=== PATIENT | male | born 1940 | race Caucasian/White ===

== ENCOUNTER 2017-05-05 02:50 | Inpatient (IN) | payer MEDICARE, MEDICAID ==
[~2017-05-05] VITALS: Ht 172.7 cm; Wt 86.2 kg
[~2017-05-05 02:50] MED LIST: ACET-2799 PO; BISA10SU12 RC; CARB1TAB21 PO; CHOL10002 PO; CLOT15CR36 TOP; Cephalexin Monohydrate PO; DULO30CA2 PO; Docusate Sodium PO; MULT-24 PO; NEO/3.5O EACHEYE; PANT40TA2 PO; PROP10DR4 EACHEYE; QUET25TA PO; TAMS-3 PO; VALP250S17 PO
[2017-05-05 03:42] LABS: ALANINE AMINOTRANSFERASE 12 U/L (16-63); ALKALINE PHOSPHATASE 56 U/L (50-136); ASPARTATE AMINOTRANSFERASE 12 U/L (15-37); BILIRUBIN,TOTAL 0.6 mg/dL (0.2-1.0); CARBON DIOXIDE 26 mmol/L (21-32); CHLORIDE 105 mmol/L (98-107); CREATININE 1.1 mg/dL (0.6-1.3); GLUCOSE 95 mg/dL (74-106); POTASSIUM 4.2 mmol/L (3.5-5.1); TOTAL PROTEIN, SERUM 6.6 g/dL (6.4-8.2); UREA NITROGEN, BLOOD 22 mg/dL (7-18); VALPROIC ACID 18 ug/mL (50-100)
[2017-05-05 03:49] LABS: EOSINOPHILS # (AUTO) 0.1 K/uL (0.0-0.7); EOSINOPHILS % (AUTO) 1.4 % (0.0-7.0); LYMPHOCYTES # (AUTO) 1.9 K/UL (0.8-4.8)
[2017-05-05 03:51] LABS: BASOPHILS # (AUTO) 0.1 K/uL (0.0-8.0); BASOPHILS % (AUTO) 0.7 % (0.0-2.0); HEMATOCRIT 41.3 % (40-50); HEMOGLOBIN 13.6 G/DL (14.0-18.0); LYMPHOCYTES % (AUTO) 21.3 % (20.5-51.5); MEAN CORPUSCULAR HEMOGLOBIN 28.5 UUG (27.0-31.0); MEAN CORPUSCULAR HGB CONC 33 g/dL (32.0-37.0); MEAN CORPUSCULAR VOLUME 86.2 FL (82.0-92.0); MONOCYTES # (AUTO) 0.4 K/UL (0.1-1.30); NEUTROPHILS # (AUTO) 6.4 K/UL (1.8-8.9); NEUTROPHILS % (AUTO) 71.6 % (38.5-71.5); PLATELET COUNT (AUTO) 196 K/UL (150-450); RED BLOOD CELL COUNT(AUTO) 4.78 MIL/UL (4.7-6.1); WHITE BLOOD COUNT (AUTO) 8.9 K/UL (4.0-11.2)
--- NOTE | 2017-05-05 04:54 | NUR ---
[facility], Dr. Zapata will be paged.
--- NOTE | 2017-05-05 04:57 | NUR ---
MICHAEL spoke with Dr. Zapata.
[2017-05-05] MEDS ORDERED: Medication Not On Formulary EA (Acetaminophen 650 MG) PO PRN (05:15)
[2017-05-05] MEDS ORDERED: BISACODYL 10 MG SUPP.RECT RC PRN (05:15)
--- NOTE | 2017-05-05 05:34 | NUR ---
Report called to [facility]IN[facility] Gr[facility]. Patient will bew admitted to [facility] under Dr. Zapata.
--- NOTE | 2017-05-05 06:00 | NUR ---
Transported patient to room 212. Patient in stable condition
--- NOTE | 2017-05-05 06:10 | NUR ---
RECEIVED PATIENT VIA GURNEY FROM ER. PATIENT IS ALERT TO SELF. NON-VERBAL. PATIENT REPOSITIONED IN BED AND MADE COMFORTABLE. HEPLOCK INTACT AND PATENT #22 GAUGE. NO S/S OF PAIN OR DISCOMFORT. NO FACIAL GRIMACE NOTED. NO RESP. DISTRESS NOTED. BED ALARM ON. CALL LIGHT IN REACH. ALL NEEDS ATTENDED. WILL CONTINUE TO MONITOR AND ASSESS. Addendum: 05/05/17 at 0653 by JAIMIE PEREZ LVN PATIENT ADMITTED TO FLOOR WITH ELI CATHETER AND BLADDER IRRIGATION INFUSING. LIGHT RED URINE NOTED AT THIS TIME. NO BLOOD CLOTS PRESENT. WILL CONTINUE TO MONITOR.
[2017-05-05 06:48] VITALS: BP 133/73
[2017-05-05] MEDS: PANTOPRAZOLE SODIUM 40 MG TABLET.DR PO SCH (08:54)
[2017-05-05] MEDS: CHOLECALCIFEROL 1,000 UNIT TABLET PO SCH (09:00)
[2017-05-05] MEDS ORDERED: CLOTRIMAZOLE/BETAMET DIPROP CREAM 15 GM TUBE TOP SCH (09:00)
[2017-05-05] MEDS: CARBIDOPA/LEVODOPA 25-100MG TABLET PO SCH ×3 (09:00→17:00)
[2017-05-05] MEDS: TAMSULOSIN HCL 0.4 MG CAP.SR.24H PO SCH ×2 (09:00→17:00)
[2017-05-05] MEDS ORDERED: DOCUSATE PO SCH (09:00)
[2017-05-05] MEDS: DULOXETINE 30 MG CAPSULE.DR PO SCH (09:00)
[2017-05-05] MEDS: MULTIVITAMINS,THERAPEUTIC TABLET PO SCH (09:00)
[2017-05-05] MEDS: VALPROIC ACID 250 MG/5 ML LIQUID UDC PO SCH (09:00)
[2017-05-05] MEDS ORDERED: ACETAMINOPHEN 325 MG TABLET PO PRN (09:15)
[2017-05-05 11:02] VITALS: BP 125/71
[2017-05-05] MEDS ORDERED: DIATR MEGLU/DIATRIZOATE SODIUM 30 ML SOLUTION ONE (13:20)
[2017-05-05] MEDS ORDERED: BARIUM SULFATE 450 ML ORAL.SUSP ONE (13:36)
[2017-05-05 15:31] VITALS: BP 132/78
[2017-05-05] MEDS ORDERED: IV NORMAL SALINE 250 ML IV ONE (15:47)
[2017-05-05] MEDS ORDERED: IOHEXOL 300MG/ML 100 ML INFUS..BTL ONE (15:47)
[2017-05-05 20:00] VITALS: BP 100/50
--- NOTE | 2017-05-05 20:00 | NUR ---
RECEIVED PATIENT ASLEEP IN BED. AROUSABLE TO NAME/TOUCH. NON-VERBAL. NO S/S OF PAIN OR DISCOMFORT. NO RESP. DISTRESS NOTED. BLADDER IRRIGATION INFUSING, WITH ELI CATHETER NOTED TO DRAINAGE WITH CLEAR, ORANGE, LIGHT PINK URINE NOTED. NO CLOTS PRESENT AT THIS TIME. BILATERAL HEELS OFF-LOADED FOR PRESSURE RELIEF. HEPLOCK INTACT AND PATENT. VS WNL. ALL NEEDS ATTENDED. CALL LIGHT IN REACH. WILL CONTINUE TO MONITOR.
[2017-05-05] MEDS: NEO/POLYMYX B/DEXAME OPHT OINT 3.5 GM TUBE EACHEYE SCH (20:37)
[2017-05-05] MEDS: DOCUSATE SODIUM 100 MG CAPSULE PO SCH (20:37)
[2017-05-05] MEDS: QUETIAPINE FUMARATE 25 MG TABLET PO SCH (20:37)
[2017-05-05 22:21] LABS: *BILIRUBIN,URIN NEGATIVE (NEGATIVE); *BLOOD, URINE 3+ (NEGATIVE); *CLARITY,URINE CLOUDY (CLEAR); *COLOR,URINE PINK (YELLOW); *KETONES,URINE NEGATIVE (NEGATIVE); *UROBILINOGEN,URINE 0.2 E.U./dl (NORMAL); LEUKOCYTE ESTERASE ,URINE 3+ (NEGATIVE); NITRITE, URINE NEGATIVE (NEGATIVE); UGLUCOSE NEGATIVE (NEGATIVE)
--- NOTE | 2017-05-05 22:30 | NUR ---
PATIENT ASLEEP. REPOSITIONED TO SIDE FOR PRESSURE RELIEF. BILATERAL HEELS OFF-LOADED. URINE SENT TO LAB ORDERED FOR UA AND CULTURE. ALLL NEEDS ATTENDED.
[2017-05-05 22:34] LABS: *PROTEIN,URINE 3+ (NEGATIVE)
[2017-05-05 22:35] LABS: RBC,URINE TNTC /HPF (0-3); SQUAMOUS EPITHELIAL CELL,UR FEW /HPF (NONE SEEN); WBC,URINE 50-80 /HPF (0-3)
[2017-05-06 05:31] VITALS: BP 116/66
[2017-05-06] MEDS: PANTOPRAZOLE SODIUM 40 MG TABLET.DR PO SCH (06:24)
[2017-05-06] MEDS: TAMSULOSIN HCL 0.4 MG CAP.SR.24H PO SCH ×2 (08:49→17:22)
[2017-05-06] MEDS: DULOXETINE 30 MG CAPSULE.DR PO SCH (08:49)
[2017-05-06] MEDS: VALPROIC ACID 250 MG/5 ML LIQUID UDC PO SCH (08:49)
[2017-05-06] MEDS: DOCUSATE SODIUM 100 MG CAPSULE PO SCH ×2 (08:49→21:06)
[2017-05-06] MEDS: CARBIDOPA/LEVODOPA 25-100MG TABLET PO SCH ×3 (08:50→17:22)
[2017-05-06] MEDS: MULTIVITAMINS,THERAPEUTIC TABLET PO SCH (08:50)
[2017-05-06] MEDS: CHOLECALCIFEROL 1,000 UNIT TABLET PO SCH (08:50)
[2017-05-06 11:06] VITALS: BP 120/68
[2017-05-06] MEDS ORDERED: CEFTRIAXONE 1 G in IV DEXTROSE 5% 50 ML IV SCH (11:15)
[2017-05-06] MEDS ORDERED: BISACODYL 10 MG SUPP.RECT RC PRN (11:15)
[2017-05-06] MEDS ORDERED: BISACODYL 10 MG SUPP.RECT RC ONE (11:15)
[2017-05-06 12:10] LABS: CARBON DIOXIDE 26 mmol/L (21-32); CHLORIDE 102 mmol/L (98-107); CREATININE 1.5 mg/dL (0.6-1.3); GLUCOSE 164 mg/dL (74-106); POTASSIUM 4.1 mmol/L (3.5-5.1); UREA NITROGEN, BLOOD 24 mg/dL (7-18)
[2017-05-06 12:11] LABS: BASOPHILS % (AUTO) 0.2 % (0.0-2.0); EOSINOPHILS # (AUTO) 0.1 K/uL (0.0-0.7); EOSINOPHILS % (AUTO) 0.6 % (0.0-7.0); HEMATOCRIT 42.9 % (40-50); HEMOGLOBIN 14.4 G/DL (14.0-18.0); LYMPHOCYTES % (AUTO) 7.6 % (20.5-51.5); MEAN CORPUSCULAR HGB CONC 34 g/dL (32.0-37.0); MEAN CORPUSCULAR VOLUME 86.3 FL (82.0-92.0); MONOCYTES # (AUTO) 0.8 K/UL (0.1-1.30); MONOCYTES % (AUTO) 6.5 % (0.0-11.0); NEUTROPHILS # (AUTO) 11.1 K/UL (1.8-8.9); NEUTROPHILS % (AUTO) 85.1 % (38.5-71.5); PLATELET COUNT (AUTO) 208 K/UL (150-450); RED BLOOD CELL COUNT(AUTO) 4.97 MIL/UL (4.7-6.1)
[2017-05-06 12:16] LABS: ALANINE AMINOTRANSFERASE 6 U/L (16-63); ALKALINE PHOSPHATASE 53 U/L (50-136); ASPARTATE AMINOTRANSFERASE 9 U/L (15-37); BILIRUBIN,TOTAL 0.8 mg/dL (0.2-1.0); MAGNESIUM 1.8 mg/dL (1.8-2.4); TOTAL PROTEIN, SERUM 6.5 g/dL (6.4-8.2)
[2017-05-06 16:01] VITALS: BP 122/76
[2017-05-06 20:00] VITALS: BP 134/79
[2017-05-06] MEDS: QUETIAPINE FUMARATE 25 MG TABLET PO SCH (21:06)
[2017-05-06] MEDS: NEO/POLYMYX B/DEXAME OPHT OINT 3.5 GM TUBE EACHEYE SCH (21:07)
[2017-05-07 04:27] VITALS: BP 107/60
--- NOTE | 2017-05-07 05:43 | NUR ---
PT SLEPT MOST SHIFT, AROUSABLE TO NAME AND TOUCH. IN NO ACUTE SIGNS OF DISTRESS, ELI INTACT DRAINING WITH LIGHT ORANGE URINE, NO BLOOD CLOTS NOTED. SAFETY MAINTAINED. CALL LIGHT WITHIN REACH.
[2017-05-07] MEDS ORDERED: MEROPENEM 500 MG VIAL IV ONE (05:48)
[2017-05-07] MEDS ORDERED: MEROPENEM 0.5 G in IV NORMAL SALINE 50 ML IV SCH (06:00)
[2017-05-07 07:38] LABS: MAGNESIUM 1.8 mg/dL (1.8-2.4); PHOSPHOROUS 3.7 mg/dL (2.5-4.9)
[2017-05-07 07:55] LABS: EOSINOPHILS # (AUTO) 0.1 K/uL (0.0-0.7); EOSINOPHILS % (AUTO) 0.4 % (0.0-7.0); HEMATOCRIT 41.7 % (40-50); HEMOGLOBIN 13.9 G/DL (14.0-18.0); LYMPHOCYTES # (AUTO) 1.3 K/UL (0.8-4.8); LYMPHOCYTES % (AUTO) 8.7 % (20.5-51.5); MEAN CORPUSCULAR HEMOGLOBIN 28.6 UUG (27.0-31.0); MEAN CORPUSCULAR HGB CONC 33 g/dL (32.0-37.0); MONOCYTES % (AUTO) 6.9 % (0.0-11.0); NEUTROPHILS # (AUTO) 12.7 K/UL (1.8-8.9); PLATELET COUNT (AUTO) 193 K/UL (150-450); RED BLOOD CELL COUNT(AUTO) 4.85 MIL/UL (4.7-6.1); WHITE BLOOD COUNT (AUTO) 15.1 K/UL (4.0-11.2)
--- NOTE | 2017-05-07 08:00 | NUR ---
RECEIVED IN BED WITH CONFUSSION AND DISORIENTATION VERBALLY NON RESPONSIVE AT THIS TIME ALL NEEDS ANTICIPATED AND SATISFIED.REMAIN ON [address] CONTINUOS IRRIGATION WITH URINE CLEAR AT THIS TIME. MADE COMFORTABLE AND WILL CONTINUE TO OBSERVE.
[2017-05-07] MEDS: TAMSULOSIN HCL 0.4 MG CAP.SR.24H PO SCH ×2 (08:34→16:59)
[2017-05-07] MEDS: DOCUSATE SODIUM 100 MG CAPSULE PO SCH ×2 (08:34→20:28)
[2017-05-07] MEDS: VALPROIC ACID 250 MG/5 ML LIQUID UDC PO SCH (08:34)
[2017-05-07] MEDS: DULOXETINE 30 MG CAPSULE.DR PO SCH (08:34)
[2017-05-07] MEDS: MULTIVITAMINS,THERAPEUTIC TABLET PO SCH (08:34)
[2017-05-07] MEDS: CARBIDOPA/LEVODOPA 25-100MG TABLET PO SCH ×3 (08:34→16:59)
[2017-05-07] MEDS: PANTOPRAZOLE SODIUM 40 MG TABLET.DR PO SCH (08:35)
[2017-05-07] MEDS: CHOLECALCIFEROL 1,000 UNIT TABLET PO SCH (08:35)
[2017-05-07 11:09] VITALS: BP 136/68
--- NOTE | 2017-05-07 13:00 | NUR ---
REMAIN ON BLADDER IRRIGATION ORDERED NORMAL SALINE SLOWED DOWN URINE OUTPUT IS SHIRLEY COLOR AT THIS TIME.MADE COMFORTABLE AND WILL CONTINUE TO OBSERVE.
[2017-05-07 13:30] LABS: BAND % (MANUAL) 8 % (0-10); LYMPHOCYTES % (MANUAL) 11 % (20-40); MONOCYTES % (MANUAL) 6 % (2-10); NEUTROPHILS % (MANUAL) 75 % (42-75)
[2017-05-07 15:43] VITALS: BP 128/64
--- NOTE | 2017-05-07 18:00 | NUR ---
REMAIN CONFUSED AND DISORIENTED ALL NEEDS ANTICIPATED AND SATISFIED TURNED AND REPOSITIONED Q2H NOT IN DISTRESS AT THIS TIME.
--- NOTE | 2017-05-07 20:00 | NUR ---
RECEIVED PATIENT ASLEEP IN BED. EASILY AROUSABLE TO NAME AND TOUCH. PATIENT IS CONFUSED BUT FOLLOWS DIRECTIONS WELL. BP LOW 98/35. TEMP. 100.2, ALL OTHER VSS. H/L INTACT AND PATENT. 3-WAY ELI NOTED WITH BLADDER IRRIGATION. ELI IS DRAINING CLEAR, YELLOW/ORANGE URINE, NO BLOOD CLOTS NOTED. BILATERAL HEELS ARE RED/PINK. OFF-LOADED BILATERAL HEELS FOR PRESSURE RELIEF. PATIENT REPOSITIONED TO SIDE FOR COMFORT AND PRESSURE RELIEF. BED ALARM ON. CALL LIGHT IN REACH. ALL NEEDS ATTENDED. WILL CONTINUE TO MONITOR.
[2017-05-07 20:23] VITALS: BP 96/38
[2017-05-07] MEDS: QUETIAPINE FUMARATE 25 MG TABLET PO SCH (20:28)
[2017-05-07] MEDS: NEO/POLYMYX B/DEXAME OPHT OINT 3.5 GM TUBE EACHEYE SCH (20:29)
--- NOTE | 2017-05-07 20:30 | NUR ---
COOLING MEASURES APPLIED. WILL CONTINUE TO MONITOR.
[2017-05-07] MEDS: MEROPENEM 500 MG in IV NORMAL SALINE 50 ML IV SCH (20:44)
--- NOTE | 2017-05-07 21:00 | NUR ---
PATIENT GIVEN TYLENOL 650MG PO PRN FOR ELEVATED TEMP. WILL CONTINUE TO MONITOR. NO S/S OF PAIN OR DISCOMFORT. NO FACIAL GRIMACE NOTED. NO RESP. DISTRESS NOTED. BED ALARM ON. CALL LIGHT IN REACH. ALL NEEDS ATTENDED. WILL CONTINUE TO MONITOR.
--- NOTE | 2017-05-08 00:30 | NUR ---
TEMPERATURE SLOWLY TRENDING DOWN. WILL CONTINUE TO MONITOR.
[2017-05-08 00:57] VITALS: BP 100/60
[2017-05-08 04:00] VITALS: BP 99/65
--- NOTE | 2017-05-08 06:00 | NUR ---
PATIENT ASLEEP IN BED. SLEPT WELL THROUGHOUT THE NIGHT. VSS. BILATERAL HEELS OFF-LOADED FOR PRESSURE RELIEF. REPOSITIONED TO SIDE FOR COMFORT. BED ALARM ON, CALL LIGHT IN REACH. ALL NEEDS ATTENDED. WILL CONTINUE TO MONITOR.
[2017-05-08] MEDS: PANTOPRAZOLE SODIUM 40 MG TABLET.DR PO SCH (06:08)
[2017-05-08 06:52] LABS: BASOPHILS % (AUTO) 0.1 % (0.0-2.0); EOSINOPHILS # (AUTO) 0.2 K/uL (0.0-0.7); EOSINOPHILS % (AUTO) 2.6 % (0.0-7.0); HEMOGLOBIN 13.4 G/DL (14.0-18.0); LYMPHOCYTES % (AUTO) 11.6 % (20.5-51.5); MEAN CORPUSCULAR HEMOGLOBIN 28.6 UUG (27.0-31.0); MEAN CORPUSCULAR HGB CONC 33 g/dL (32.0-37.0); MEAN CORPUSCULAR VOLUME 87.7 FL (82.0-92.0); MONOCYTES # (AUTO) 0.4 K/UL (0.1-1.30); MONOCYTES % (AUTO) 4.8 % (0.0-11.0); NEUTROPHILS # (AUTO) 7.4 K/UL (1.8-8.9); NEUTROPHILS % (AUTO) 80.9 % (38.5-71.5); PLATELET COUNT (AUTO) 189 K/UL (150-450); RED BLOOD CELL COUNT(AUTO) 4.67 MIL/UL (4.7-6.1)
[2017-05-08 07:09] LABS: CARBON DIOXIDE 25 mmol/L (21-32); CHLORIDE 104 mmol/L (98-107); CREATININE 1.4 mg/dL (0.6-1.3); GLUCOSE 91 mg/dL (74-106); MAGNESIUM 1.9 mg/dL (1.8-2.4); POTASSIUM 3.9 mmol/L (3.5-5.1); UREA NITROGEN, BLOOD 36 mg/dL (7-18)
--- NOTE | 2017-05-08 07:51 | NUR ---
RECEIVED IN BED CONFUSED AND DISORIENTED APHASIC WITH [facility] CONTACT ALL NEEDS ANTICIPATED AND SATISFIED.MAX ASSIST FOR ALL ADL REMAIN ON CONTINOUS BLADDER IRRIGATION ORDERED WITH NO HEMATURIA AT THIS TIME REMAIN ON ATB ORDERED WITH NO ADVERSE OR ALLERGIC REACTIONS AT THIS TIME MADE COMFORTABLE AND WILL CONTINUE TO OBSERVE PATIENT.
[2017-05-08] MEDS: MULTIVITAMINS,THERAPEUTIC TABLET PO SCH (08:08)
[2017-05-08] MEDS: DOCUSATE SODIUM 100 MG CAPSULE PO SCH ×2 (08:08→20:37)
[2017-05-08] MEDS: TAMSULOSIN HCL 0.4 MG CAP.SR.24H PO SCH ×2 (08:08→16:54)
[2017-05-08] MEDS: CHOLECALCIFEROL 1,000 UNIT TABLET PO SCH (08:08)
[2017-05-08] MEDS: CARBIDOPA/LEVODOPA 25-100MG TABLET PO SCH ×3 (08:08→16:54)
[2017-05-08] MEDS: VALPROIC ACID 250 MG/5 ML LIQUID UDC PO SCH (08:08)
[2017-05-08] MEDS: DULOXETINE 30 MG CAPSULE.DR PO SCH (08:08)
[2017-05-08] MEDS: MEROPENEM 500 MG in IV NORMAL SALINE 50 ML IV SCH (08:47)
[2017-05-08 11:07] VITALS: BP 100/63
--- NOTE | 2017-05-08 14:13 | NUR ---
PATIENT SEEN AND EXAMINED BY THE SLT WITH ORDER TO CONTINUE PURRED BUT WITH NECTAR THICK LIQUIDS AND NOTED.
[2017-05-08 15:04] VITALS: BP 100/64
--- NOTE | 2017-05-08 17:26 | NUR ---
SEEN AND EXAMINED BY BETSY WITH NEW ORDERS AND NOTED.
[2017-05-08 19:00] VITALS: BP 100/65
--- NOTE | 2017-05-08 20:00 | NUR ---
RECEIVED PATIENT ASLEEP IN BED. EASILY AROUSABLE. NON-VERBAL. NO S/S OF PAIN OR DISCOMFORT. NO FACIAL GRIMACE NOTED. NO RESP. DISTRESS NOTED. H/L INTACT AND PATENT, NOTED TO LEFT FA #20 GAUGE. F/C INTACT AND DRAINING CLEAR, YELLOW URINE. BILATERAL HEELS OFF-LOADED FOR PRESSURE RELIEF. BED ALARM ON. CALL LIGHT IN REACH. ALL NEEDS ATTENDED. WILL CONTINUE TO MONITOR.
[2017-05-08] MEDS: NEO/POLYMYX B/DEXAME OPHT OINT 3.5 GM TUBE EACHEYE SCH (20:37)
[2017-05-08] MEDS: QUETIAPINE FUMARATE 25 MG TABLET PO SCH (20:37)
[2017-05-08] MEDS: CEFAZOLIN 1 G in PREMIXED 1 EACH IV SCH (21:27)
[2017-05-09 04:00] VITALS: BP 72/35
--- NOTE | 2017-05-09 04:00 | NUR ---
PATIENT ASLEEP IN BED. PATIENT REPORTED LOW BP FOR AM VITALS. FIRST BP 63/32, SECOND TIME RECHECKED 67/354 AND THIRD TIME RECHECKED 72/35. ALL OTHER VSS. PATIENT EASILY AROUSABLE AND RESPONSIVE. CALLED OUT TO MD NEWS CAMERA OPERATOR FOR FURTHER ORDERS.
--- NOTE | 2017-05-09 04:10 | NUR ---
NOTIFIED DR. RUFFIN ALLEY CLEANER FOR ORDERS REGARDING LOW BP. RECEIVED ORDER FOR PATIENT TO HAVE 1L NS BOLUS AND THEN TO BE CONTINUED WITH NS @100CC/HR. INSIDE SALES ADVISOR NOTIFIED. WILL CONTINUE TO MONITOR AND ASSESS VITALS.
[2017-05-09] MEDS ORDERED: IV NS 1000 ML 1,000 ML IV PRN (04:30)
[2017-05-09] MEDS ORDERED: IV NORMAL SALINE 1000 ML BAG IV ONE (04:30)
[2017-05-09] MEDS: CEFAZOLIN 1 G in PREMIXED 1 EACH IV SCH ×2 (05:54→13:54)
[2017-05-09] MEDS: PANTOPRAZOLE SODIUM 40 MG TABLET.DR PO SCH (06:11)
[2017-05-09 06:43] VITALS: BP 117/72
--- NOTE | 2017-05-09 06:44 | NUR ---
RECHECKED PATIENTS BLOOD PRESSURE 117/72. ALL OTHER VSS. CALL LIGHT IN REACH. ALL NEEDS ATTENDED. WILL CONTINUE TO MONITOR.
[2017-05-09 07:10] VITALS: BP 110/71
[2017-05-09 07:29] LABS: BASOPHILS % (AUTO) 0.5 % (0.0-2.0); EOSINOPHILS # (AUTO) 0.3 K/uL (0.0-0.7); HEMATOCRIT 37.9 % (40-50); HEMOGLOBIN 12.6 G/DL (14.0-18.0); LYMPHOCYTES % (AUTO) 20.4 % (20.5-51.5); MEAN CORPUSCULAR HEMOGLOBIN 29.2 UUG (27.0-31.0); MEAN CORPUSCULAR HGB CONC 33 g/dL (32.0-37.0); MEAN CORPUSCULAR VOLUME 87.4 FL (82.0-92.0); MONOCYTES # (AUTO) 0.5 K/UL (0.1-1.30); MONOCYTES % (AUTO) 10.4 % (0.0-11.0); NEUTROPHILS # (AUTO) 3.3 K/UL (1.8-8.9); NEUTROPHILS % (AUTO) 63.7 % (38.5-71.5); PLATELET COUNT (AUTO) 189 K/UL (150-450); RED BLOOD CELL COUNT(AUTO) 4.34 MIL/UL (4.7-6.1)
[2017-05-09 07:41] LABS: CARBON DIOXIDE 27 mmol/L (21-32); CHLORIDE 106 mmol/L (98-107); CREATININE 1.1 mg/dL (0.6-1.3); GLUCOSE 96 mg/dL (74-106); MAGNESIUM 1.9 mg/dL (1.8-2.4); PHOSPHOROUS 3.1 mg/dL (2.5-4.9); POTASSIUM 3.9 mmol/L (3.5-5.1); UREA NITROGEN, BLOOD 30 mg/dL (7-18)
[2017-05-09 07:54] LABS: WHITE BLOOD COUNT (AUTO) 5.1 K/UL (4.0-11.2)
[2017-05-09] MEDS: CARBIDOPA/LEVODOPA 25-100MG TABLET PO SCH ×2 (08:35→12:08)
[2017-05-09] MEDS: MULTIVITAMINS,THERAPEUTIC TABLET PO SCH (08:35)
[2017-05-09] MEDS: VALPROIC ACID 250 MG/5 ML LIQUID UDC PO SCH (08:35)
[2017-05-09] MEDS: DULOXETINE 30 MG CAPSULE.DR PO SCH (08:36)
[2017-05-09] MEDS: TAMSULOSIN HCL 0.4 MG CAP.SR.24H PO SCH (08:36)
[2017-05-09] MEDS: DOCUSATE SODIUM 100 MG CAPSULE PO SCH (08:36)
[2017-05-09] MEDS: CHOLECALCIFEROL 1,000 UNIT TABLET PO SCH (08:36)
[2017-05-09 11:03] VITALS: BP 106/64
[2017-05-09] MEDS ORDERED: ACID1TAB4 PO (12:38)
[2017-05-09] MEDS ORDERED: CRAN450T9 PO (12:38)
[2017-05-09] MEDS ORDERED: CEFA1VIA19 IV (12:38)
[2017-05-09 15:09] VITALS: BP 106/55
--- NOTE | 2017-05-09 17:00 | NUR ---
discharged to [facility] via ambulance stable
== END 2017-05-09 17:00 | DRG 871 ==
LOC: ER 02:53 → MED 05:20
PROVIDERS: ADMIT Internal Medicine; ATTEND Internal Medicine
DX: A41.9 Sepsis, unspecified organism (principal); G93.40 Encephalopathy, unspecified; N39.0 Urinary tract infection, site not specified; D68.59 Other primary thrombophilia; N13.30 Unspecified hydronephrosis; G23.1 Progressive supranuclear ophthalmoplegia [Steele-Richardson-Olszewski]; R31.0 Gross hematuria; F02.80 Dementia in other diseases classified elsewhere, unspecified severity, without behavioral disturbance, psychotic disturbance, mood disturbance, and anxiety; G20 Parkinson's disease; E11.9 Type 2 diabetes mellitus without complications; E78.5 Hyperlipidemia, unspecified; Z91.81 History of falling; Z87.440 Personal history of urinary (tract) infections; Z87.11 Personal history of peptic ulcer disease; N40.0 Benign prostatic hyperplasia without lower urinary tract symptoms; Z79.899 Other long term (current) drug therapy; Z74.09 Other reduced mobility; K26.9 Duodenal ulcer, unspecified as acute or chronic, without hemorrhage or perforation; I10 Essential (primary) hypertension; K21.0 Gastro-esophageal reflux disease with esophagitis; K56.41 Fecal impaction; K52.89 Other specified noninfective gastroenteritis and colitis; I70.0 Atherosclerosis of aorta; M41.9 Scoliosis, unspecified
CPT/HCPCS: 36415; 51702; 70030-TC; 71010; 80164; 83735; 84100; 84153; 85025; 85610; 86850; 86900; 86901; 87077; 87086; 92526; 92610; A4217; A4663; J0690; J0696; J2185; J3490; J7030; J7050; J7060; Q9951; Q9963; Q9967

== ENCOUNTER 2017-05-14 22:45 | Inpatient (IN) | payer MEDICARE, MEDICAID ==
[~2017-05-14] VITALS: Ht 172.7 cm; Wt 73.0 kg
[~2017-05-14 22:45] MED LIST changes: +ACID1TAB4 PO; +CEFA1VIA19 IV; -CLOT15CR36 TOP; +CRAN450T9 PO; -Cephalexin Monohydrate PO
[2017-05-14] MEDS ORDERED: CEPH500C2 PO (22:58)
[2017-05-14] MEDS ORDERED: ACID1TAB4 PO (22:58)
[2017-05-14] MEDS ORDERED: DOCU100C36 PO (22:58)
[2017-05-14] MEDS ORDERED: IV NORMAL SALINE 500 ML BAG IV ONE (23:00)
[2017-05-14] MEDS ORDERED: ACETAMINOPHEN 650 MG SUPP.RECT RC ONE ×2 (23:15→23:19)
[2017-05-14 23:21] LABS: BASOPHILS # (AUTO) 0.2 K/uL (0.0-8.0); BASOPHILS % (AUTO) 1.1 % (0.0-2.0); HEMATOCRIT 43.4 % (40-50); HEMOGLOBIN 14.7 G/DL (14.0-18.0); LYMPHOCYTES # (AUTO) 1.3 K/UL (0.8-4.8); LYMPHOCYTES % (AUTO) 5.8 % (20.5-51.5); MEAN CORPUSCULAR HEMOGLOBIN 28.8 UUG (27.0-31.0); MEAN CORPUSCULAR HGB CONC 34 g/dL (32.0-37.0); MEAN CORPUSCULAR VOLUME 85.1 FL (82.0-92.0); MONOCYTES # (AUTO) 0.4 K/UL (0.1-1.30); MONOCYTES % (AUTO) 1.8 % (0.0-11.0); NEUTROPHILS # (AUTO) 20.2 K/UL (1.8-8.9); NEUTROPHILS % (AUTO) 91.3 % (38.5-71.5); PLATELET COUNT (AUTO) 356 K/UL (150-450); RED BLOOD CELL COUNT(AUTO) 5.09 MIL/UL (4.7-6.1); WHITE BLOOD COUNT (AUTO) 22.1 K/UL (4.0-11.2)
[2017-05-14 23:29] LABS: ALANINE AMINOTRANSFERASE 24 U/L (16-63); ALKALINE PHOSPHATASE 60 U/L (50-136); ASPARTATE AMINOTRANSFERASE 22 U/L (15-37); BILIRUBIN,DIRECT 0.2 mg/dL (0.0-0.2); BILIRUBIN,TOTAL 0.7 mg/dL (0.2-1.0); CARBON DIOXIDE 26 mmol/L (21-32); CHLORIDE 102 mmol/L (98-107); CREATININE 1.5 mg/dL (0.6-1.3); GLUCOSE 117 mg/dL (74-106); POTASSIUM 4.5 mmol/L (3.5-5.1); TOTAL PROTEIN, SERUM 7.3 g/dL (6.4-8.2); UREA NITROGEN, BLOOD 21 mg/dL (7-18)
--- NOTE | 2017-05-14 23:30 | NUR ---
CALLED CODE SEPSIS ORDERED
[2017-05-14 23:34] LABS: *BILIRUBIN,URIN NEGATIVE (NEGATIVE); *BLOOD, URINE Trace-intact (NEGATIVE); *CLARITY,URINE CLOUDY (CLEAR); *COLOR,URINE YELLOW (YELLOW); *KETONES,URINE 1+ (NEGATIVE); *PROTEIN,URINE 1+ (NEGATIVE); *UROBILINOGEN,URINE 0.2 E.U./dl (NORMAL); LEUKOCYTE ESTERASE ,URINE 2+ (NEGATIVE); NITRITE, URINE POSITIVE (NEGATIVE); UGLUCOSE NEGATIVE (NEGATIVE)
[2017-05-14 23:38] LABS: BACTERIA,URINE MANY /HPF (NONE SEEN); SQUAMOUS EPITHELIAL CELL,UR FEW /HPF (NONE SEEN); WBC,URINE 50-80 /HPF (0-3)
[2017-05-14] MEDS ORDERED: PIPERACILLIN SODIUM/TAZOBACTAM 3.375 G in IV DEXTROSE 5% 50 ML IV ONE (23:45)
[2017-05-14] MEDS ORDERED: LEVOFLOXACIN 750MG/D5W 150 ML IV ONE (23:45)
[2017-05-15] MEDS ORDERED: PIPERACILLIN/TAZOBACTAM/D5W 50 ML IV ONE (00:12)
[2017-05-15] MEDS ORDERED: LEVOFLOXACIN 750MG/D5W 150 ML IV ONE (00:12)
--- NOTE | 2017-05-15 00:47 | NUR ---
PER MICHAEL, CONTACTED [facility], SECURITY OFFICERS AND GUARDS TO HAVE DR. Pretty HERNANDEZ PAGED....
--- NOTE | 2017-05-15 01:06 | NUR ---
Pt. admitted to TELEMETRY , under care of Dr. Félix Rae, Belongs List completed, pt awake, with at bedside, no resp distress noted or reported upon transfer assessment...
--- NOTE | 2017-05-15 01:25 | NUR ---
PT RECEIVED FROM ER VIA GURNEY. PT IS AWAKE, NON-VERBAL. AT BEDSIDE. V/S STABLE. NO ACUTE DISTRESS NOTED AT THIS TIME. NO SIGNS OF PAIN NOTED. 73 SINUS RHYTHM ON THE TELE MONITOR. ANTIBIOTIC INFUSING AT THIS TIME. PT MADE COMFORTABLE. SAFETY MEASURES IMPLEMENTED. CALL LIGHT WITHIN REACH.
[2017-05-15 02:00] VITALS: BP 94/64
[2017-05-15 04:00] VITALS: BP 109/64
--- NOTE | 2017-05-15 05:35 | NUR ---
END OF SHIFT NOTES. PT SLEPT WELL THROUGH SHIFT. V/S STABLE. NO ACUTE DISTRESS NOTED. NO S/S OF PAIN NOTED. FOUND LAC IV INFILTRATED FROM ED TRANSFER. D/C LAC IV. STARTED NEW IV ON RIGHT HAND, HEP-LOCK. NEEDS ATTENDED. SAFETY MAINTAINED. CALL LIGHT WITHIN REACH.
[2017-05-15] MEDS ORDERED: ACETAMINOPHEN 325 MG TABLET PO PRN (08:15)
[2017-05-15] MEDS ORDERED: Z GUARD REMEDY PASTE 57 GM TUBE TOP PRN (08:15)
[2017-05-15] MEDS ORDERED: BISACODYL 10 MG SUPP.RECT RC PRN (08:15)
[2017-05-15] MEDS ORDERED: ONDANSETRON 4 MG/2 ML VIAL IV PRN (08:15)
--- NOTE | 2017-05-15 08:30 | NUR ---
RECEIVED PATIENT IN BED WITH CONFUSSION AND DISORIENTATION PATIENT IS NON VERBAL WITH ALL NEEDS ANTICIPATED AND SATISFIED.TURNED AND REPOSITIONED Q2H SPOON FED BREAKFAST PATIENT WILL REQUIRE DOWN GRADING HIS DIET MD AWARE.
[2017-05-15] MEDS ORDERED: CEFTRIAXONE 1 G in IV DEXTROSE 5% 50 ML IV SCH (09:00)
[2017-05-15] MEDS: MULTIVITAMINS,THERAPEUTIC TABLET PO SCH (09:13)
[2017-05-15] MEDS: IV NS 1000 ML 1,000 ML IV PRN (09:13)
[2017-05-15] MEDS: TAMSULOSIN HCL 0.4 MG CAP.SR.24H PO SCH ×2 (09:14→16:17)
[2017-05-15] MEDS: DOCUSATE SODIUM 100 MG CAPSULE PO SCH ×2 (09:14→20:42)
[2017-05-15] MEDS: DULOXETINE 30 MG CAPSULE.DR PO SCH (09:14)
[2017-05-15] MEDS: ACIDOPHILUS/BULGARICUS CHEW TAB PO SCH (09:14)
[2017-05-15] MEDS: CARBIDOPA/LEVODOPA 25-100MG TABLET PO SCH ×3 (09:14→16:17)
[2017-05-15] MEDS: CHOLECALCIFEROL 1,000 UNIT TABLET PO SCH (09:14)
[2017-05-15 11:22] VITALS: BP 112/61
--- NOTE | 2017-05-15 13:00 | NUR ---
PATIENT SEEN AND EXAMINED BY SPEECH AND LANGUAGE THERAPIST AND STATED THAT IT WAS OKAY TO CONTINUE WITH PUREED DIET WITH NECTAR THICK LIQUIDS AND STATED THAT PATIENT SHOULD BE SEATED UPRIGHT IN BED FOR A WHILE AFTER EACH MEAL.
[2017-05-15 15:08] VITALS: BP 113/63
--- NOTE | 2017-05-15 16:52 | NUR ---
REMAIN ON ANTIBIOTICS ORDERED WITH NO ADVERSE OR ALLERGIC REACTIONS AT THIS TIME.IVF IN PROGRESS ORDERED.
--- NOTE | 2017-05-15 18:18 | NUR ---
HIS SPOUSE IS HERE AND ASSISTED WITH FEEDING THE PATIENT SHE WAS EDUCATED ON NEW DIET ORDER AND THE THICKEN ALL HIS LIQUIDS TO NECTAR THICK CONSISTENCY AND SHE EXPRESSED UNDERSTANDING.
--- NOTE | 2017-05-15 19:20 | NUR ---
PATIENT IN BED CONFUSED DUE TO HEALTH CONDITION, NO S/S OF SOB, NO S/S OF CHEST PAIN, TURN AND REPOSITION, ELI CATH PATENT DRAINING WITH YELLOW COLOR URINE IN MODERATE AMOUNT, NO S/S OF DISTRESS.
--- NOTE | 2017-05-15 19:33 | NUR ---
CLINICAL PHARMACY NOTE:VANCOMYCIN DOSING Request for vancomycin dosing on 76 y/o male 5'8" 161lbs for suspected infection Temp 99.1 (05/14/17)-BUN 21 Scr 1.5 WBC 22.1 also on Zosyn Start vancomycin 1250mg ivpb q24h estimate trough 16. Will order trough level prior to 4th dose. Will continue to monitor
[2017-05-15 20:00] VITALS: BP 93/52
[2017-05-15] MEDS: QUETIAPINE FUMARATE 25 MG TABLET PO SCH (20:43)
[2017-05-15] MEDS: Z GUARD REMEDY PASTE 57 GM TUBE TOP SCH (20:47)
[2017-05-15] MEDS: PIPERACILLIN/TAZOBACTAM/D5W 3.375 G in PREMIXED 1 EACH IV SCH (21:14)
[2017-05-15] MEDS ORDERED: VANCOMYCIN IV 1,250 MG in IV DEXTROSE 5% 500 ML IV SCH (23:00)
[2017-05-16] VITALS: BP 106/63
[2017-05-16] MEDS: IV NS 1000 ML 1,000 ML IV PRN (00:27)
[2017-05-16 04:00] VITALS: BP 96/58
[2017-05-16] MEDS: PIPERACILLIN/TAZOBACTAM/D5W 3.375 G in PREMIXED 1 EACH IV SCH ×3 (05:25→23:52)
--- NOTE | 2017-05-16 06:02 | NUR ---
PATIENT SLEPT MOST OF THE NIGHT, RYTHM SINUS RYTHM, NO SOB NO CHEST PAIN NOTED. ELI CATH PATENT WITH YELLOW COLOR URINE IN MODERATE AMOUNT. CONT TO MONITORL
[2017-05-16] MEDS: PANTOPRAZOLE SODIUM 40 MG TABLET.DR PO SCH (06:08)
[2017-05-16 06:42] LABS: BASOPHILS % (AUTO) 0.1 % (0.0-2.0); EOSINOPHILS # (AUTO) 0.1 K/uL (0.0-0.7); EOSINOPHILS % (AUTO) 0.5 % (0.0-7.0); HEMATOCRIT 36.5 % (40-50); HEMOGLOBIN 12.3 G/DL (14.0-18.0); LYMPHOCYTES # (AUTO) 1.5 K/UL (0.8-4.8); LYMPHOCYTES % (AUTO) 7.3 % (20.5-51.5); MEAN CORPUSCULAR HEMOGLOBIN 29.5 UUG (27.0-31.0); MEAN CORPUSCULAR HGB CONC 34 g/dL (32.0-37.0); MEAN CORPUSCULAR VOLUME 87.5 FL (82.0-92.0); MONOCYTES # (AUTO) 0.7 K/UL (0.1-1.30); MONOCYTES % (AUTO) 3.4 % (0.0-11.0); NEUTROPHILS # (AUTO) 17.6 K/UL (1.8-8.9); NEUTROPHILS % (AUTO) 88.7 % (38.5-71.5); PLATELET COUNT (AUTO) 276 K/UL (150-450); RED BLOOD CELL COUNT(AUTO) 4.17 MIL/UL (4.7-6.1); WHITE BLOOD COUNT (AUTO) 19.9 K/UL (4.0-11.2)
[2017-05-16 06:45] LABS: ALANINE AMINOTRANSFERASE 14 U/L (16-63); ALKALINE PHOSPHATASE 57 U/L (50-136); ASPARTATE AMINOTRANSFERASE 22 U/L (15-37); BILIRUBIN,TOTAL 0.7 mg/dL (0.2-1.0); CARBON DIOXIDE 24 mmol/L (21-32); CHLORIDE 104 mmol/L (98-107); CHOLESTEROL 108 mg/dL (<200); CREATININE 1.2 mg/dL (0.6-1.3); GLUCOSE 90 mg/dL (74-106); HDL CHOLESTEROL 37 mg/dL (40-60); MAGNESIUM 1.7 mg/dL (1.8-2.4); PHOSPHOROUS 2.6 mg/dL (2.5-4.9); POTASSIUM 3.8 mmol/L (3.5-5.1); TOTAL PROTEIN, SERUM 6.2 g/dL (6.4-8.2); TRIGLYCERIDES 59 MG/DL (30-150); UREA NITROGEN, BLOOD 19 mg/dL (7-18)
[2017-05-16 06:53] LABS: THYROID STIMULATING HORMONE 0.948 mIU/mL (0.358-3.740)
--- NOTE | 2017-05-16 07:44 | NUR ---
CONFUSED TRYING TO PULL OUT IV, NO SIGNS OF PAIN OR DISTRESS, AFEBRILE SR ON MONITOR
[2017-05-16 08:15] LABS: BAND % (MANUAL) 6 % (0-10); LYMPHOCYTES % (MANUAL) 9 % (20-40); MONOCYTES % (MANUAL) 7 % (2-10); NEUTROPHILS % (MANUAL) 78 % (42-75)
[2017-05-16] MEDS: TAMSULOSIN HCL 0.4 MG CAP.SR.24H PO SCH ×2 (08:28→17:22)
[2017-05-16] MEDS: CHOLECALCIFEROL 1,000 UNIT TABLET PO SCH (08:28)
[2017-05-16] MEDS: CARBIDOPA/LEVODOPA 25-100MG TABLET PO SCH ×3 (08:28→17:22)
[2017-05-16] MEDS: ACIDOPHILUS/BULGARICUS CHEW TAB PO SCH (08:28)
[2017-05-16] MEDS: MULTIVITAMINS,THERAPEUTIC TABLET PO SCH (08:28)
[2017-05-16] MEDS: DULOXETINE 30 MG CAPSULE.DR PO SCH (08:28)
[2017-05-16] MEDS: DOCUSATE SODIUM 100 MG CAPSULE PO SCH ×2 (08:28→20:58)
[2017-05-16] MEDS: Z GUARD REMEDY PASTE 57 GM TUBE TOP SCH ×2 (08:29→21:03)
[2017-05-16] MEDS ORDERED: MAGNESIUM SULFATE/D5W 100 ML IV SCH (09:00)
[2017-05-16 11:49] VITALS: BP 127/66
--- NOTE | 2017-05-16 12:00 | NUR ---
DR FRANCE IN SEE NOTES, AT BEDSIDE WITH SPEECH THERAPIST FOR FOLLOW-UP. SEE ST NOTES
--- NOTE | 2017-05-16 14:22 | NUR ---
Clinical pharmacy note-Vancomycin dosing per pharmacy Subjective: To continue Vancomycin dosing on this 76 yo male patient for sepsis, posible PNA, UTI Objective: BUN 19 Scr 1.2 WBC 19.9 temp 98.6 ht 5' 8'' wt 161 lb Assessment/Plan: Since srcr has decreased (from 1.5 to 1.2), will change vanco dose from 1250mg IV q24 h to vancomycin 1250mg IVPB q20 hr for predicted vanco trough level of 17 mcg/ml at steady state. Second dose is due today at 1930. Plan to draw vancomycin trough level before 4th dose (level not yet ordered). Will monitor renal function and change dose if needed. Will continue to follow daily
[2017-05-16 15:29] VITALS: BP 106/59
--- NOTE | 2017-05-16 18:29 | NUR ---
CONTINUE IV ANTIBIOTICS NO ADVERSE REACTION. REMAINS SR ON MONITOR WITH PVCS. NO SIGNS OF DISTRESS
[2017-05-16 20:00] VITALS: BP 117/61
[2017-05-16] MEDS: VANCOMYCIN IV 1,250 MG in IV DEXTROSE 5% 500 ML IV SCH (20:52)
[2017-05-16] MEDS: QUETIAPINE FUMARATE 25 MG TABLET PO SCH (20:55)
[2017-05-17] VITALS: BP 100/56
[2017-05-17] MEDS: IV NS 1000 ML 1,000 ML IV PRN (02:41)
[2017-05-17 04:00] VITALS: BP 144/79
[2017-05-17] MEDS: PIPERACILLIN/TAZOBACTAM/D5W 3.375 G in PREMIXED 1 EACH IV SCH ×3 (05:03→21:00)
[2017-05-17] MEDS: PANTOPRAZOLE SODIUM 40 MG TABLET.DR PO SCH (06:12)
[2017-05-17 06:49] LABS: CARBON DIOXIDE 26 mmol/L (21-32); CHLORIDE 104 mmol/L (98-107); CREATININE 1.1 mg/dL (0.6-1.3); GLUCOSE 85 mg/dL (74-106); MAGNESIUM 1.7 mg/dL (1.8-2.4); POTASSIUM 3.8 mmol/L (3.5-5.1); UREA NITROGEN, BLOOD 16 mg/dL (7-18)
[2017-05-17 06:53] LABS: EOSINOPHILS # (AUTO) 0.2 K/uL (0.0-0.7); EOSINOPHILS % (AUTO) 1.2 % (0.0-7.0); HEMATOCRIT 38.8 % (40-50); HEMOGLOBIN 12.7 G/DL (14.0-18.0); LYMPHOCYTES # (AUTO) 0.9 K/UL (0.8-4.8); LYMPHOCYTES % (AUTO) 6.7 % (20.5-51.5); MEAN CORPUSCULAR HEMOGLOBIN 28.6 UUG (27.0-31.0); MEAN CORPUSCULAR HGB CONC 33 g/dL (32.0-37.0); MEAN CORPUSCULAR VOLUME 87.7 FL (82.0-92.0); MONOCYTES # (AUTO) 0.5 K/UL (0.1-1.30); MONOCYTES % (AUTO) 3.5 % (0.0-11.0); NEUTROPHILS # (AUTO) 11.3 K/UL (1.8-8.9); NEUTROPHILS % (AUTO) 88.6 % (38.5-71.5); PLATELET COUNT (AUTO) 278 K/UL (150-450); RED BLOOD CELL COUNT(AUTO) 4.43 MIL/UL (4.7-6.1)
[2017-05-17 07:02] LABS: WHITE BLOOD COUNT (AUTO) 12.9 K/UL (4.0-11.2)
--- NOTE | 2017-05-17 07:29 | NUR ---
PATIENT SLEPT INTERMITTENTLY T/O SHIFT. NO ACUTE DISTRESS NOTED. NO CHANGES T.O SHIFT. ELI CARE PROVIDED. ELI INTACT AND PATENT. SAFETY AND COMFORT MEASURE MAINTAINED T/O SHIFT. ALL NEEDS MET.
[2017-05-17 07:45] LABS: BAND % (MANUAL) 6 % (0-10); EOSINOPHILS % (MANUAL) 1 % (0-8); LYMPHOCYTES % (MANUAL) 10 % (20-40); MONOCYTES % (MANUAL) 5 % (2-10); NEUTROPHILS % (MANUAL) 78 % (42-75)
[2017-05-17] MEDS: DULOXETINE 30 MG CAPSULE.DR PO SCH ×2 (08:39→08:57)
[2017-05-17] MEDS: MULTIVITAMINS,THERAPEUTIC TABLET PO SCH ×2 (08:40→08:58)
[2017-05-17] MEDS: CARBIDOPA/LEVODOPA 25-100MG TABLET PO SCH ×4 (08:40→17:12)
[2017-05-17] MEDS: TAMSULOSIN HCL 0.4 MG CAP.SR.24H PO SCH ×3 (08:40→17:12)
[2017-05-17] MEDS: CHOLECALCIFEROL 1,000 UNIT TABLET PO SCH ×2 (08:40→08:58)
[2017-05-17] MEDS: DOCUSATE SODIUM 100 MG CAPSULE PO SCH ×3 (08:40→20:43)
[2017-05-17] MEDS: ACIDOPHILUS/BULGARICUS CHEW TAB PO SCH ×2 (08:40→08:58)
[2017-05-17] MEDS: Z GUARD REMEDY PASTE 57 GM TUBE TOP SCH ×2 (08:41→20:43)
--- NOTE | 2017-05-17 09:01 | NUR ---
patient refused all oral medications by closing his mouth and placing his hand over his mouth. medications were crashed, but discarded after since the patient refused meds.
[2017-05-17 11:28] VITALS: BP 116/67
[2017-05-17] MEDS ORDERED: FUROSEMIDE 20 MG/2 ML VIAL IV ONE (12:45)
[2017-05-17 13:41] VITALS: BP 91/60
--- NOTE | 2017-05-17 13:45 | NUR ---
Unable to safely administer Lasix 20mg IV push at this time, patient blood pressure 91/60, hr 105.
--- NOTE | 2017-05-17 15:07 | NUR ---
Clinical pharmacy note-Vancomycin dosing per pharmacy Subjective: To continue Vancomycin dosing on this 76 yo male patient for sepsis, posible PNA, UTI Objective: BUN 16 Scr 1.1 WBC 12.9 temp 98.6 ht 5' 8'' wt 161 lb Assessment/Plan: Will continue vanco dose from 1250mg IV q24 h to vancomycin 1250mg IVPB q20 hr for predicted vanco trough level of 17 mcg/ml at steady state. Plan to draw vancomycin trough level before 4th dose (ordered and due at 1100 tomorrow am). Will check level tomorrow am and adjust as needed. Will monitor renal function and change dose if needed. Will continue to follow daily
[2017-05-17] MEDS: MAGNESIUM SULFATE/D5W 100 ML IV SCH ×2 (15:31→17:04)
--- NOTE | 2017-05-17 16:00 | NUR ---
REPORT IS GIVEN, PT IS LAYING IN BED COMFORTABLY. NO S/S OF RESPIRATORY DISTRESS NOTED. ALL SAFETY NEEDS ARE MET. ST CHECKED WITH THE NURSE, ADVISED ST THAT NURSE DID NOT WITNESS THE PT SWALLOWING SINCE THE PT REFUSED TO TAKE ALL ORAL MEDS. OK PER ST.
--- NOTE | 2017-05-17 16:00 | NUR ---
Awake, confused. Magnesium IV still infusing. Bed alarm on
[2017-05-17 16:06] VITALS: BP 128/74
[2017-05-17] MEDS: VANCOMYCIN IV 1,250 MG in IV DEXTROSE 5% 500 ML IV SCH (17:59)
--- NOTE | 2017-05-17 18:09 | NUR ---
Family assisted him with meal. Magnesium infused. Vancomycin started after. Incontinence care done. Repositioned in bed comfortably.
[2017-05-17 19:00] VITALS: BP 115/73
[2017-05-17] MEDS: QUETIAPINE FUMARATE 25 MG TABLET PO SCH (20:43)
[2017-05-18 05:00] VITALS: BP 121/71
[2017-05-18] MEDS: PIPERACILLIN/TAZOBACTAM/D5W 3.375 G in PREMIXED 1 EACH IV SCH ×2 (05:34→14:16)
--- NOTE | 2017-05-18 06:00 | NUR ---
Patient slept well, in no acute distress. Antibiotics IV administered as ordered, no adverse reaction noted. Stewart cath intact/patent, draining yellow urine. Patient kept clean/dry, repositioned Q2H for comfort. No significant changes in condition throughout the shift. Bed alarm on, will continue to monitor.
[2017-05-18] MEDS: PANTOPRAZOLE SODIUM 40 MG TABLET.DR PO SCH (06:03)
[2017-05-18 06:36] LABS: BASOPHILS % (AUTO) 0.1 % (0.0-2.0); EOSINOPHILS # (AUTO) 0.2 K/uL (0.0-0.7); EOSINOPHILS % (AUTO) 2.1 % (0.0-7.0); HEMATOCRIT 39.2 % (40-50); LYMPHOCYTES # (AUTO) 1.3 K/UL (0.8-4.8); LYMPHOCYTES % (AUTO) 12.9 % (20.5-51.5); MEAN CORPUSCULAR HEMOGLOBIN 29.1 UUG (27.0-31.0); MEAN CORPUSCULAR HGB CONC 33 g/dL (32.0-37.0); MEAN CORPUSCULAR VOLUME 87.6 FL (82.0-92.0); MONOCYTES # (AUTO) 0.6 K/UL (0.1-1.30); MONOCYTES % (AUTO) 6.1 % (0.0-11.0); NEUTROPHILS # (AUTO) 7.6 K/UL (1.8-8.9); NEUTROPHILS % (AUTO) 78.8 % (38.5-71.5); PLATELET COUNT (AUTO) 344 K/UL (150-450); RED BLOOD CELL COUNT(AUTO) 4.47 MIL/UL (4.7-6.1); WHITE BLOOD COUNT (AUTO) 9.7 K/UL (4.0-11.2)
[2017-05-18 07:30] LABS: ALANINE AMINOTRANSFERASE 15 U/L (16-63); ALKALINE PHOSPHATASE 53 U/L (50-136); ASPARTATE AMINOTRANSFERASE 21 U/L (15-37); BILIRUBIN,TOTAL 0.5 mg/dL (0.2-1.0); CARBON DIOXIDE 26 mmol/L (21-32); CHLORIDE 102 mmol/L (98-107); GLUCOSE 88 mg/dL (74-106); PHOSPHOROUS 3.1 mg/dL (2.5-4.9); POTASSIUM 3.8 mmol/L (3.5-5.1); TOTAL PROTEIN, SERUM 6.7 g/dL (6.4-8.2); UREA NITROGEN, BLOOD 13 mg/dL (7-18)
--- NOTE | 2017-05-18 08:00 | NUR ---
RESTING MOST OF THE TIME VS TAKEN STABLE NO SOB OR PAIN CLOSED OBSERVATION BED ALARM ON AND CALL LIGHT WITHIN REACH
[2017-05-18] MEDS: Z GUARD REMEDY PASTE 57 GM TUBE TOP SCH (08:24)
[2017-05-18] MEDS: ACIDOPHILUS/BULGARICUS CHEW TAB PO SCH (08:24)
[2017-05-18] MEDS: DULOXETINE 30 MG CAPSULE.DR PO SCH (08:24)
[2017-05-18] MEDS: CARBIDOPA/LEVODOPA 25-100MG TABLET PO SCH ×3 (08:24→17:08)
[2017-05-18] MEDS: MULTIVITAMINS,THERAPEUTIC TABLET PO SCH (08:24)
[2017-05-18] MEDS: TAMSULOSIN HCL 0.4 MG CAP.SR.24H PO SCH ×2 (08:24→17:08)
[2017-05-18] MEDS: CHOLECALCIFEROL 1,000 UNIT TABLET PO SCH (08:24)
[2017-05-18] MEDS: DOCUSATE SODIUM 100 MG CAPSULE PO SCH (08:24)
[2017-05-18 11:59] VITALS: BP 111/68
[2017-05-18] MEDS ORDERED: PIPE3.379 IV (12:25)
[2017-05-18] MEDS ORDERED: VANCOMYCIN IV 1 G in PREMIXED 0 EACH IV SCH (12:30)
[2017-05-18] MEDS ORDERED: FURO-152 PO (12:33)
--- NOTE | 2017-05-18 13:00 | NUR ---
DR FRANCE WAS HERE SEEN PATINE AND LAB RESULT ORDER OK TO D/C BACK TO [facility] WITH ORDER CHIEF ACCOUNTING OFFICER WORKING ON IT
--- NOTE | 2017-05-18 14:59 | NUR ---
Clinical pharmacy note-Vancomycin dosing per pharmacy Subjective: To continue Vancomycin dosing on this 76 yo male patient for sepsis, posible PNA, UTI Objective: BUN 13 Scr 1.0 WBC 9.7 temp 98.6 ht 5' 8'' wt 161 lb trough: 12.5 (today at 1100) Assessment/Plan: Based on trough, Will change regimen to 1gm q15hr, new expected trough 15.7. Plan to draw vancomycin trough level before 4th dose (Not ordered yet). Will monitor renal function and change dose if needed. Will continue to follow daily
--- NOTE | 2017-05-18 15:30 | NUR ---
REPORT GIVEN TO SNF NURSE CONOR VIA TEL AND FAMILY MRS CLARICE CUNNINGHAM WAS INFORM OF PATIENT WILL D/C BACK TO [facility] TODAY VIA AMBULANCE ,SHE WAS AWARE OF IT
--- NOTE | 2017-05-18 15:35 | NUR ---
[facility] [place] IV SITE CHANGE TO LFA #22 FOR SNF TO USE TO CONTINUE ANTIBIOTICS ZOSYN ORDER
[2017-05-18 15:46] VITALS: BP 115/74
--- NOTE | 2017-05-18 17:30 | NUR ---
EAT DINNER 40% BUT DRINK WELL BOOST NO SOB OR PAIN HL INTACT LFA
--- NOTE | 2017-05-18 18:00 | NUR ---
HEMODYNAMIC STATUS STABLE SAFETY MEASURE PROVIDED BED ALARM ON AND CALL CEVALLOS IN REACH
--- NOTE | 2017-05-18 19:27 | NUR ---
RECEIVED PATIENT RESTING IN BED, IN NO ACUTE DISTRESS. DISCHARGE ORDERS COMPLETED BY DAY SHIFT RN, AWAITING FOR PATIENT'S TRANSPO TO [facility].
[2017-05-18 19:47] VITALS: BP 105/64
--- NOTE | 2017-05-18 19:53 | NUR ---
PATIENT PICKED UP BY AMBULANCE TRANSPORTED TO [facility]. PATIENT IS ALERT, IN NO ACUTE DISTRESS. COPY OF DISCHARGE PAPERS SENT WITH THE PATIENT. Addendum: 05/18/17 at 1954 by TRAN RAJPUT RN VITAL SIGNS STABLE, PATIENT IS AFEBRILE.
== END 2017-05-18 19:53 | DRG 871 ==
LOC: ER 22:49 → TELE 05-15 01:11 → MED 05-17 13:57
PROVIDERS: ADMIT Nurse Practitioner Acute Care; ATTEND Internal Medicine
DX: A41.9 Sepsis, unspecified organism (principal); G93.41 Metabolic encephalopathy; N17.0 Acute kidney failure with tubular necrosis; N39.0 Urinary tract infection, site not specified; G23.1 Progressive supranuclear ophthalmoplegia [Steele-Richardson-Olszewski]; N13.30 Unspecified hydronephrosis; I13.0 Hypertensive heart and chronic kidney disease with heart failure and stage 1 through stage 4 chronic kidney disease, or unspecified chronic kidney disease; R65.20 Severe sepsis without septic shock; B96.5 Pseudomonas (aeruginosa) (mallei) (pseudomallei) as the cause of diseases classified elsewhere; G31.83 Neurocognitive disorder with Lewy bodies; F02.80 Dementia in other diseases classified elsewhere, unspecified severity, without behavioral disturbance, psychotic disturbance, mood disturbance, and anxiety; M19.90 Unspecified osteoarthritis, unspecified site; Z79.899 Other long term (current) drug therapy; B96.4 Proteus (mirabilis) (morganii) as the cause of diseases classified elsewhere; Z91.81 History of falling; K56.41 Fecal impaction; R97.20 Elevated prostate specific antigen [PSA]; E78.5 Hyperlipidemia, unspecified; D64.9 Anemia, unspecified; Z87.440 Personal history of urinary (tract) infections; I27.2 Other secondary pulmonary hypertension; E11.22 Type 2 diabetes mellitus with diabetic chronic kidney disease; N18.9 Chronic kidney disease, unspecified; I50.9 Heart failure, unspecified; Z87.11 Personal history of peptic ulcer disease
CPT/HCPCS: 36415; 51702; 70030-TC; 71010; 76770; 83605; 83735; 84100; 84443; 85025; 85730; 87040; 87077; 87086; 92523; 92526; 93005; 93307; J0696; J1940; J1956; J2543; J3370; J3475; J7030; J7040; J7060

== ENCOUNTER 2017-07-27 15:27 | Inpatient (IN) | payer MEDICARE, MEDICAID ==
[~2017-07-27] VITALS: Ht 185.4 cm; Wt 70.9 kg
[~2017-07-27 15:27] MED LIST changes: -CEFA1VIA19 IV; +DOCU100C36 PO; -Docusate Sodium PO; +FURO-152 PO; -NEO/3.5O EACHEYE; +PIPE3.379 IV; -VALP250S17 PO
[2017-07-27] MEDS ORDERED: TERA5CAP4 PO (15:52)
[2017-07-27] MEDS ORDERED: DOCU-141 PO (15:52)
--- NOTE | 2017-07-27 15:56 | NUR ---
PT IS IN ROOM #2A. DR DOHERTY EVALUATED THE PT.
--- NOTE | 2017-07-27 17:36 | NUR ---
UNABLE TO INSERT F/C. DR DOHERTY NOTIFIED.
[2017-07-27 17:44] LABS: BASOPHILS % (AUTO) 0.1 % (0.0-2.0); EOSINOPHILS # (AUTO) 0.1 K/uL (0.0-0.7); HEMOGLOBIN 13.5 G/DL (14.0-18.0); LYMPHOCYTES # (AUTO) 2.3 K/UL (0.8-4.8); MEAN CORPUSCULAR HEMOGLOBIN 27.8 UUG (27.0-31.0); MEAN CORPUSCULAR HGB CONC 33 g/dL (32.0-37.0); MEAN CORPUSCULAR VOLUME 84.3 FL (82.0-92.0); MONOCYTES # (AUTO) 0.6 K/UL (0.1-1.30); MONOCYTES % (AUTO) 4.8 % (0.0-11.0); NEUTROPHILS # (AUTO) 8.9 K/UL (1.8-8.9); NEUTROPHILS % (AUTO) 75.1 % (38.5-71.5); PLATELET COUNT (AUTO) 376 K/UL (150-450); RED BLOOD CELL COUNT(AUTO) 4.87 MIL/UL (4.7-6.1); WHITE BLOOD COUNT (AUTO) 11.9 K/UL (4.0-11.2)
[2017-07-27 17:59] LABS: CARBON DIOXIDE 30 mmol/L (21-32); CHLORIDE 109 mmol/L (98-107); GLUCOSE 87 mg/dL (74-106); POTASSIUM 3.8 mmol/L (3.5-5.1); UREA NITROGEN, BLOOD 25 mg/dL (7-18)
[2017-07-27 18:15] LABS: ALANINE AMINOTRANSFERASE 22 U/L (16-63); ALKALINE PHOSPHATASE 63 U/L (50-136); ASPARTATE AMINOTRANSFERASE 19 U/L (15-37); BILIRUBIN,DIRECT 0.1 mg/dL (0.0-0.2); BILIRUBIN,TOTAL 0.3 mg/dL (0.2-1.0); TOTAL PROTEIN, SERUM 7.1 g/dL (6.4-8.2)
--- NOTE | 2017-07-27 18:27 | NUR ---
DR SANCHEZ VISITED THE PT.
--- NOTE | 2017-07-27 19:05 | NUR ---
REPORT GIVEN TO MONORAIL OPERATOR RN.
--- NOTE | 2017-07-27 19:58 | NUR ---
Pt arrived 1957 from ER via [facility]. Non verbal at this time with at bedside. Pt admitted to [facility]. Contracted to upper and lower extremities. No skin breakdown noted. Minimal bleeding noted to groin area d/t previous unsuccessful f/c insertion in ER. Pt's BP noted 166/78. P 112 and oxygen sat 95%. No fever or chills. Pt noted with teeth clenching. Needs maximum assistance. D5 1/2 NS started at 75CC/Hr. made aware. Continue to monitor.
--- NOTE | 2017-07-27 20:07 | NUR ---
REPORT WAS GIVEN TO M/S RN. PT WAS TRANSFERED TO M/S ROOM #207.
[2017-07-27 20:22] VITALS: BP 166/78
--- NOTE | 2017-07-27 20:22 | NUR ---
Pt alert and O2 sat noted 82%. Oxygen via n/c applied at 2L/min. Oxygen now up to 95%. HR 137. T 98.4. BP 119/56. made aware of findings. MD was notified and ordered Morphine IV q6 hr prn pain and admit pt to Tele. Noted and carried out.
[2017-07-27 21:57] VITALS: BP 119/54
--- NOTE | 2017-07-27 22:04 | NUR ---
BP 91/46. Oxygen 2L/min now at 99%. T-98.4. Morphine held. MD made aware of findings. Dr Brewer ordered to increase D5 1/2 NS from 75cc to 100cc/hr continuous. Noted and Carried out. Pt sinus tachy 137.
[2017-07-28] VITALS: BP 93/56
--- NOTE | 2017-07-28 00:47 | NUR ---
Pt in room sleeping. BP 93/56. HR 114. 96% oxygen at 2L/min. No acute distress noted at this time. 1 episode of void. No increase bleeding noted to groin area.
--- NOTE | 2017-07-28 02:24 | NUR ---
Pt sleeping, IV on left AC was removed and new IV 20G started to right hand. BP now 118/58. P-107. No s/s of acute distress at this time.
--- NOTE | 2017-07-28 03:10 | NUR ---
Spoke with Nick from lab and noted Troponin level 0.396. Dr Brewer made aware.
[2017-07-28 04:00] VITALS: BP 117/60
--- NOTE | 2017-07-28 05:39 | NUR ---
Pt in room in no acute distress. Oxygen 2L/min with 98% sat. BP 117/60. Pulse sinus tachy 111. T-98.6. Pt still present with minimal bleeding to groin area. Swallow eval was input due to prevent aspriation precaution. No new orders at this time. Continue to monitor. Pt repositioned. HOB elevated 30 degrees.
[2017-07-28 06:31] LABS: BASOPHILS % (AUTO) 0.1 % (0.0-2.0); HEMATOCRIT 39.9 % (36.7-47.1); HEMOGLOBIN 13.4 g/dL (12.5-16.3); LYMPHOCYTES # (AUTO) 0.3 K/uL (20.0-40.0); LYMPHOCYTES % (AUTO) 1.3 % (20.5-51.5); MEAN CORPUSCULAR HEMOGLOBIN 28.2 uug (23.8-33.4); MEAN CORPUSCULAR HGB CONC 34 g/dL (32.5-36.3); MEAN CORPUSCULAR VOLUME 84.2 fL (73.0-96.2); MONOCYTES # (AUTO) 0.3 K/uL (2.0-10.0); MONOCYTES % (AUTO) 1.3 % (0.0-11.0); NEUTROPHILS # (AUTO) 22.8 K/uL (1.8-8.9); NEUTROPHILS % (AUTO) 97.3 % (38.5-71.5); PLATELET COUNT (AUTO) 187 K/uL (152-348); RED BLOOD CELL COUNT(AUTO) 4.73 MIL/uL (4.06-5.63)
[2017-07-28 06:41] LABS: ALANINE AMINOTRANSFERASE 25 U/L (16-63); ALKALINE PHOSPHATASE 54 U/L (50-136); ASPARTATE AMINOTRANSFERASE 40 U/L (15-37); BILIRUBIN,TOTAL 0.5 mg/dL (0.2-1.0); CARBON DIOXIDE 23 mmol/L (21-32); CHLORIDE 111 mmol/L (98-107); CHOLESTEROL 106 mg/dL (<200); CREATININE 1.5 mg/dL (0.6-1.3); GLUCOSE 154 mg/dL (74-106); HDL CHOLESTEROL 45 mg/dL (40-60); PHOSPHOROUS 2.1 mg/dL (2.5-4.9); POTASSIUM 3.5 mmol/L (3.5-5.1); TOTAL PROTEIN, SERUM 6.2 g/dL (6.4-8.2); TRIGLYCERIDES 29 MG/DL (30-150); UREA NITROGEN, BLOOD 26 mg/dL (7-18)
[2017-07-28 06:47] LABS: WHITE BLOOD COUNT (AUTO) 23.4 K/uL (3.6-10.2)
[2017-07-28 07:20] LABS: MAGNESIUM 1.2 mg/dL (1.8-2.4)
[2017-07-28 07:53] LABS: BAND % (MANUAL) 43 % (0-10); BASOPHILS % (MANUAL) 1 % (0-2); LYMPHOCYTES % (MANUAL) 2 % (20-40); METAMYELOCYTES % 6 % (0-1); MONOCYTES % (MANUAL) 2 % (2-10); NEUTROPHILS % (MANUAL) 46 % (42-75)
--- NOTE | 2017-07-28 08:00 | NUR ---
NO SIGNS OF PAIN OR DISTRESS, VERY LETHARGIC CONTINUE IVF FOR HYDRATION. AFEBRILE
--- NOTE | 2017-07-28 10:10 | NUR ---
SEEN BY DR EVANS WITH ORDERS
[2017-07-28 11:03] VITALS: BP 91/62
--- NOTE | 2017-07-28 12:06 | NUR ---
Clinical Pharmacy Note: Vancomycin Pharmacy to Dose Subjective: To start vancomycin in this 77 y/o gentleman for indication of "empiric therapy" (no MD note yet) Objective: height 185 cm weight 64 kg BUN 26 Scr 1.5 Wbc 23.4 Temp 98.6 Assessment/Plan Due to older age and renal function, will dose per level for now and consider scheduled regimen if renal function improves. One dose of vancomycin 1gm given today at 0900. Random level ordered with am labs tomorrow, due at 0600. Will check level in am and re-dose as needed. Will also follow renal function and change to scheduled regimen if were to become stable. Will monitor
[2017-07-28 13:25] LABS: *BLOOD, URINE 3+ (NEGATIVE); *COLOR,URINE Brown (YELLOW); *KETONES,URINE NEGATIVE (NEGATIVE); LEUKOCYTE ESTERASE ,URINE 1+ (NEGATIVE); NITRITE, URINE POSITIVE (NEGATIVE); PH,URINE 5.5 (5.0-8.0); UGLUCOSE NEGATIVE (NEGATIVE)
[2017-07-28 13:59] LABS: *BILIRUBIN,URIN 1+ (NEGATIVE); *CLARITY,URINE CLOUDY (CLEAR)
[2017-07-28 14:00] LABS: *PROTEIN,URINE 2+ (NEGATIVE)
[2017-07-28 14:02] LABS: RBC,URINE TNTC /HPF (0-3); WBC,URINE TNTC /HPF (0-3)
[2017-07-28 14:03] LABS: BACTERIA,URINE NONE SEEN /HPF (NONE SEEN); MUCUS,URINE FEW /LPF (0-FEW); SQUAMOUS EPITHELIAL CELL,UR FEW /HPF (NONE SEEN)
[2017-07-28 14:05] LABS: *CREATININE,URINE 95.3 mg/dL (30-125); *URINE TOTAL PROTEIN RANDOM 147.6 mg/dL (<150/24HR)
[2017-07-28 15:27] VITALS: BP 88/60
--- NOTE | 2017-07-28 17:51 | NUR ---
DR ATKINSON IN FOR GI CONSULT, POSSIBLE ENDOSCOPIC PEG PLACEMENT 07/30/17
[2017-07-28 19:45] VITALS: BP 80/46
--- NOTE | 2017-07-28 19:45 | NUR ---
PATIENT'S BP TAKEN AT 1944: 84/45. RECHECKED AT 1949: 77/42. REPOSITIONED BED TO REVERSE [place]. NOTIFIED DR. TAYLOR AND ORDERED 500ML NS BOLUS. PROVIDED TO PATIENT AT 2005. BP RECHECKED AT 2029: 87/55. PATIENT IS IN STABLE CONDITION AND WILL CLOSELY MONITOR PATIENT'S VITALS/PAPER STACKER.
--- NOTE | 2017-07-28 21:00 | NUR ---
PATIENT'S BP RECHECKED: DECLINED TO 78/46. PATIENT REMAINS IN REVERSE [place], RECEIVING O2 2L/NS. PATIENT O2 SAT 98%. IV D5 1/2 NS RUNNING AT 100 ML/HR. PATIENT IS CLOSELY MONITORED AND CONSISTENT BP READINGS TAKEN. PATIENT IN NO DISTRESS. LICENSED WEIGHER SHOWS SINUS RHYTHM WITH HR OF 65.
--- NOTE | 2017-07-28 22:30 | NUR ---
b/p -68/38. MANAGER MEDICAL notified with new orders
--- NOTE | 2017-07-28 22:50 | NUR ---
BEGAN 1000ML NS BOLUS ORDERED BY PHYSICIAN. PATIENT CLOSELY MONITORED. NO SIGNS OF DISTRESS.
--- NOTE | 2017-07-28 23:55 | NUR ---
RECEIVED CRITICAL LAB VALUE FOR TROPONIN 0.614. MECHANICAL CAR CHECKER NOTIFIED WITH NEW ORDERS
[2017-07-29] VITALS (8 sets, daily range): BP systolic 84–110; BP diastolic 45–67
--- NOTE | 2017-07-29 01:00 | NUR ---
PATIENT'S BP INCREASED TO THE 90S, SINUS RHYTHM; HR 68. AWAKE, DISORIENTED. APPEARS TO HAVE GAINED STRENGTH GRADUALLY. PATIENT CONTINUOUSLY PULLING NASAL CANNULA OFF AND DISPLAY DECORATOR LEADS OFF. VERBALIZED TO PATIENT THAT HE "NEEDS IT TO HELP HIS BREATHING'. LEADS, COVERED SECURELY WITH GOWN. PATIENT EVENTUALLY FELL ASLEEP WITH NASAL CANNULA ON; LEADS ON CORRECTLY, FUNCTIONING. PATIENT IN STABLE CONDITION. VITAL SIGNS MONITORED CONSISTENTLY. SAFETY AND COMFORT PROVIDED TO PATIENT.
[2017-07-29 06:43] LABS: ALANINE AMINOTRANSFERASE 24 U/L (16-63); ALKALINE PHOSPHATASE 51 U/L (50-136); ASPARTATE AMINOTRANSFERASE 58 U/L (15-37); BILIRUBIN,TOTAL 0.6 mg/dL (0.2-1.0); CARBON DIOXIDE 26 mmol/L (21-32); CHLORIDE 110 mmol/L (98-107); CREATINE KINASE, TOTAL 478 U/L (39-308); CREATININE 1.4 mg/dL (0.6-1.3); GLUCOSE 94 mg/dL (74-106); MAGNESIUM 1.9 mg/dL (1.8-2.4); PHOSPHOROUS 2.9 mg/dL (2.5-4.9); POTASSIUM 3.5 mmol/L (3.5-5.1); TOTAL PROTEIN, SERUM 5.6 g/dL (6.4-8.2); UREA NITROGEN, BLOOD 26 mg/dL (7-18); VANCOMYCIN,RANDOM 7.8 ug/mL (18.0-26.0)
[2017-07-29 06:54] LABS: BASOPHILS # (AUTO) 0.1 K/uL (0.0-8.0); BASOPHILS % (AUTO) 0.3 % (0.0-2.0); EOSINOPHILS # (AUTO) 0.1 K/uL (0.0-0.7); EOSINOPHILS % (AUTO) 0.5 % (0.0-7.0); HEMATOCRIT 35.3 % (36.7-47.1); HEMOGLOBIN 11.9 g/dL (12.5-16.3); LYMPHOCYTES # (AUTO) 1.5 K/uL (20.0-40.0); LYMPHOCYTES % (AUTO) 6.3 % (20.5-51.5); MEAN CORPUSCULAR HGB CONC 34 g/dL (32.5-36.3); MEAN CORPUSCULAR VOLUME 83.4 fL (73.0-96.2); MONOCYTES # (AUTO) 0.7 K/uL (2.0-10.0); MONOCYTES % (AUTO) 3.1 % (0.0-11.0); NEUTROPHILS # (AUTO) 20.6 K/uL (1.8-8.9); NEUTROPHILS % (AUTO) 89.8 % (38.5-71.5); PLATELET COUNT (AUTO) 180 K/uL (152-348); RED BLOOD CELL COUNT(AUTO) 4.24 MIL/uL (4.06-5.63); WHITE BLOOD COUNT (AUTO) 22.9 K/uL (3.6-10.2)
--- NOTE | 2017-07-29 08:00 | NUR ---
AWAKE ALERT BUT CONFUSED X3, IN CONTINENT OF URINE. SR ON MONITOR
--- NOTE | 2017-07-29 10:20 | NUR ---
Clinical Pharmacy Note: Vancomycin Pharmacy to Dose Subjective: To continue vancomycin in this 77 y/o gentleman for indication of "empiric therapy" (no MD note yet) Objective: height 185 cm weight 64 kg BUN 26 Scr 1.4 Wbc 22.9 Temp 98.4 Vanco random level: 7.8 Assessment/Plan Due to older age and renal function, will continue to dose per level for now and consider scheduled regimen if renal function improves. One dose of vancomycin 1gm given today at 0900. Random level ordered with am labs tomorrow, due at 0600. Will check level in am and re-dose as needed. Will also follow renal function and change to scheduled regimen if were to become stable. Will monitor
--- NOTE | 2017-07-29 11:04 | NUR ---
PULLED OUT IV, 2DECHO DONE, CONTINUE IV ANTIBIOTICS NO ADVERSE REACTION
--- NOTE | 2017-07-29 20:15 | NUR ---
NSG: PT IS HYPOTENSIVE, 84/53 HR 69, 84/[address] SANCHEZ REGARDING HYPOTENSION. RECEIVE ORDER TO ADMINISTER NS 500ML BOLUS AND CHANGE IVF TO D5NS AT 100ML/HR. CONT TO MONITOR.
--- NOTE | 2017-07-29 21:04 | NUR ---
nsg: seroquel not given, unsafe for pt to swallow.
[2017-07-30 05:34] VITALS: BP 100/56
--- NOTE | 2017-07-30 06:00 | NUR ---
NSG: PT AWAKE BUT CONFUSED, BUE/BLE CONTRACTED. C/O BACK PAIN, MEDICATED WITH MORPHINE 1MG IVP. KEPT CLEAN AND DRY. REPOSITIONED. ALL NEEDS ATTENDED. TELE SR. CONT TO MONITOR.
--- NOTE | 2017-07-30 06:00 | NUR ---
nsg: unable to give hs med due to being lethargic. npo after midnight for peg placement today.
--- NOTE | 2017-07-30 07:30 | NUR ---
awake but confused, kept npo for PEG placement today, Tele- SR, IVF infusing at 100ml/hr, DVT pumps on, lower extremities contracted, on first step mattress, safety measures maintained, bed alarm on
--- NOTE | 2017-07-30 08:00 | NUR ---
to OR per bed in stable condition
[2017-07-30 09:45] LABS: BASOPHILS % (AUTO) 0.2 % (0.0-2.0); EOSINOPHILS # (AUTO) 0.3 K/uL (0.0-0.7); EOSINOPHILS % (AUTO) 2.5 % (0.0-7.0); HEMATOCRIT 32.8 % (40-50); HEMOGLOBIN 11.1 G/DL (14.0-18.0); LYMPHOCYTES # (AUTO) 1.8 K/UL (0.8-4.8); LYMPHOCYTES % (AUTO) 12.9 % (20.5-51.5); MEAN CORPUSCULAR HEMOGLOBIN 28.6 UUG (27.0-31.0); MEAN CORPUSCULAR HGB CONC 34 g/dL (32.0-37.0); MEAN CORPUSCULAR VOLUME 84.6 FL (82.0-92.0); MONOCYTES # (AUTO) 0.3 K/UL (0.1-1.30); MONOCYTES % (AUTO) 2.4 % (0.0-11.0); NEUTROPHILS # (AUTO) 11.5 K/UL (1.8-8.9); PLATELET COUNT (AUTO) 154 K/UL (150-450); RED BLOOD CELL COUNT(AUTO) 3.87 MIL/UL (4.7-6.1); WHITE BLOOD COUNT (AUTO) 13.9 K/UL (4.0-11.2)
[2017-07-30 09:48] LABS: CARBON DIOXIDE 22 mmol/L (21-32); CHLORIDE 111 mmol/L (98-107); CREATININE 0.9 mg/dL (0.6-1.3); GLUCOSE 82 mg/dL (74-106); POTASSIUM 3.5 mmol/L (3.5-5.1); UREA NITROGEN, BLOOD 21 mg/dL (7-18)
--- NOTE | 2017-07-30 10:14 | NUR ---
Clinical Pharmacy Note: Vancomycin Pharmacy to Dose Subjective: To continue vancomycin in this 77 y/o gentleman for UTI, sepsis Objective: height 185 cm weight 64 kg BUN 21 Scr 0.9 Wbc 13.9 Temp 97.9 Vanco random level: 9.4 Assessment/Plan Will continue to dose per level for now (ID will review & may DC vanco today since BC + GNR). Will give one dose of vancomycin 1gm today at 1100. No Random level ordered for am for now (likely, ID will dc vanco later today). Will monitor. Will follow
[2017-07-30 10:27] VITALS: BP 110/71
--- NOTE | 2017-07-30 10:30 | NUR ---
received from Recovery room per bed awake but confused, abdominal binder in place, on at 2l/nc, vital signs taken, placed back to tele SR, kept head of bed elevated, safety measures maintained, GT fdg to be started in am
--- NOTE | 2017-07-30 11:00 | NUR ---
report given to Dena for care
[2017-07-30 11:40] VITALS: BP 109/71
--- NOTE | 2017-07-30 12:00 | NUR ---
RECEIVED FROM ALEJANDRA. FOUND PATIENT AWAKE, & IV PULLED OUT, TRLE OFF. C/O RLABD. PAIN. COMPLETE LINEN CHANGED. IV RESTARTED LEFT FOREARM.
[2017-07-30 15:32] VITALS: BP 95/57
--- NOTE | 2017-07-30 18:00 | NUR ---
SLEPT WELL MOST OF THE PM. REPOSITIONED PRN. DENIES ANY FURTHER ABD PAIN.
--- NOTE | 2017-07-30 19:18 | NUR ---
RECEIVED PATIENT IN BED, HOB ELEVATED, NO SOB NO CHEST PAIN, ABDOMINAL BINDER IN PLACE, S/P PEG PLACEMENT, PATIENT RESTLESS, KEPT CLEAN AND DRY, TURN AND REPOSITION, NO CONGESTION NO COUGHING NOTED, CONT TO MONITOR.
[2017-07-30 20:51] VITALS: BP 98/56
--- NOTE | 2017-07-30 22:00 | NUR ---
PATIENT PULLED OUT IV LINES, APPLIED DRESSING. PATIENT AWAKE, RESTLESS, KEPT CLEAN AND DRY BUT NOT EFFECTIVE, CONT TO MONITOR, NO S/S OF PAIN AT THIS TIME.
[2017-07-31 04:56] VITALS: BP 102/57
--- NOTE | 2017-07-31 05:38 | NUR ---
PATIENT SLEPT MOST OF THE NIGHT, NO SOB NO CHEST PAIN, COMPLAIN OF ABD PAIN WILL MEDICATE FOR PAIN, GTF TOLERATE WELL NO N/V NO DIARRHEA, NO RESIDUAL NOTED, ABDOMINAL BINDER IN PLACE. KEPT CLEAN AND DRY TURN AND REPOSITION.
[2017-07-31 06:49] LABS: MAGNESIUM 1.6 mg/dL (1.8-2.4); PHOSPHOROUS 2.3 mg/dL (2.5-4.9)
--- NOTE | 2017-07-31 07:50 | NUR ---
RECEIVED ASLEEP GTUBE PATENT WITHOUT RESIDUAL, FALL PRECAUTIONS MAINTAINED
[2017-07-31 08:06] LABS: ALBUMIN 2.5 g/dL (2.9-4.4); ALPHA-1-GLOBULIN 0.2 g/dL (0.0-0.4); ALPHA-2-GLOBULIN 0.6 g/dL (0.4-1.0); BETA GLOBULIN 0.6 g/dL (0.7-1.3); GAMMA GLOBULIN 0.9 g/dL (0.4-1.8); GLOBULIN, TOTAL 2.4 g/dL (2.2-3.9); M-SPIKE 0.5 g/dL (Not Observed)
[2017-07-31 08:39] VITALS: BP 103/54
--- NOTE | 2017-07-31 09:00 | NUR ---
DR HOOD VISITING
[2017-07-31 11:25] VITALS: BP 130/76
--- NOTE | 2017-07-31 11:30 | NUR ---
WOUND CARE NURSE VISITING
--- NOTE | 2017-07-31 11:55 | NUR ---
WOUND CARE CONSULT: PT PRESENTS WITH STAINING AND SCARRING TO SACRAL AREA. PT HAS CONTRACTURES, ESPECIALLY RT SIDE. PT ON FIRST STEP MATTRESS. PT INCONTINENT. CURRENT IMMANUEL SCORE IS 12. ALL SKIN PROTECTION MEASURES IN PLACE AND DISCUSSED WITH NURSING STAFF. WILL SEE PRN. CALLAHAN IN AGREEMENT WITH PLAN OF CARE.
[2017-07-31 15:08] VITALS: BP 144/82
--- NOTE | 2017-07-31 18:35 | NUR ---
CARDIOVASCULAR RESPIRATORY STATUS STABLE ON Q1 HOUR ROUNDS, FALL PRECAUTIONS MAINTAINED TOLERATED TUBE FEED WITHOUT RESIDUAL ON Q4 HOUR CHECK
--- NOTE | 2017-07-31 19:30 | NUR ---
Pt in room alert, awake to touch and sound. HOB elevated 30 degrees. No acute distress noted. PEG tube noted with 5ml risidual and [employer] continuous at 40cc/hr. Feedings will stop 1999 and resume 2199. No acute distress at this time. BP noted 115/73. Bed alarm on with SCD's included. Continue to monitor.
[2017-07-31 19:56] VITALS: BP 115/73
--- NOTE | 2017-08-01 01:06 | NUR ---
Pt asleep in room at this time. No acute distress noted. Continuing D5NS 50 Ml/hr. No reaction to current PEG feeding or Merrem IV antibiotics. Repositioned right side. Continue to monitor.
[2017-08-01 05:37] VITALS: BP 128/80
[2017-08-01 06:40] LABS: BASOPHILS % (AUTO) 0.1 % (0.0-2.0); EOSINOPHILS # (AUTO) 0.2 K/uL (0.0-0.7); EOSINOPHILS % (AUTO) 3.3 % (0.0-7.0); HEMOGLOBIN 12.4 G/DL (14.0-18.0); LYMPHOCYTES # (AUTO) 1.5 K/UL (0.8-4.8); LYMPHOCYTES % (AUTO) 24.9 % (20.5-51.5); MEAN CORPUSCULAR HEMOGLOBIN 27.8 UUG (27.0-31.0); MEAN CORPUSCULAR HGB CONC 34 g/dL (32.0-37.0); MEAN CORPUSCULAR VOLUME 82.7 FL (82.0-92.0); MONOCYTES # (AUTO) 0.4 K/UL (0.1-1.30); MONOCYTES % (AUTO) 5.9 % (0.0-11.0); NEUTROPHILS % (AUTO) 65.8 % (38.5-71.5); PLATELET COUNT (AUTO) 169 K/UL (150-450)
[2017-08-01 06:45] LABS: CARBON DIOXIDE 25 mmol/L (21-32); CHLORIDE 107 mmol/L (98-107); CREATININE 0.7 mg/dL (0.6-1.3); GLUCOSE 110 mg/dL (74-106); MAGNESIUM 1.8 mg/dL (1.8-2.4); POTASSIUM 4.1 mmol/L (3.5-5.1); UREA NITROGEN, BLOOD 12 mg/dL (7-18)
[2017-08-01 07:04] LABS: RED BLOOD CELL COUNT(AUTO) 4.47 MIL/UL (4.7-6.1); WHITE BLOOD COUNT (AUTO) 6.1 K/UL (4.0-11.2)
--- NOTE | 2017-08-01 09:00 | NUR ---
RECEIVED PATIENT AWAKE ALERT NON VERBAL ALL NEEDS ANTICIPATED AND SATISFIED MAX ASSIST FOR ALL ADL ON ROOM AIR WITH NO SHORTNESS OF BREATH AT THIS TIME.GT FEEDINGS WITH DIABETIC SOURCE IN PROGRESS AT 60ML/HR WILL INCREASE AT 1000 RESIDUAL IS ABOUT 5 ML NO REGURGITATION OR EMESIS AT THIS TIME.MADE COMFORTABLE NOT IN DISTRESS AT THIS TIME.
[2017-08-01] MEDS ORDERED: ENOX40DI SQ (09:27)
[2017-08-01] MEDS ORDERED: Nut.tx.glucose Intolerance,Soy GT (09:27)
[2017-08-01] MEDS ORDERED: MERO500V IV (09:27)
[2017-08-01 10:58] LABS: BAND % (MANUAL) 1 % (0-10); EOSINOPHILS % (MANUAL) 3 % (0-8); LYMPHOCYTES % (MANUAL) 24 % (20-40); MONOCYTES % (MANUAL) 7 % (2-10); NEUTROPHILS % (MANUAL) 65 % (42-75)
--- NOTE | 2017-08-01 11:00 | NUR ---
NEW ORDERS FOR DISCHARGE TO THE [facility] RECEIVED AND NOTED AND THE ADOLESCENT SPECIALIST AWARE.
[2017-08-01 11:27] VITALS: BP 120/79
--- NOTE | 2017-08-01 12:50 | NUR ---
CALLED [facility] TO GIVE REPORT AND PER THE AGRICULTURAL SERVICES DIRECTOR THEY ARE HAVING AN EMERGENCY AT THIS TIME AND NO ONE IS AVAILABLE TO ANSWER THE PHONE STATED THAT I SHOULD CALL BACK LATER.
--- NOTE | 2017-08-01 15:45 | NUR ---
PATIENT DISCHARGED PICKED UP BY [facility] IN SATISFACTORY CONDITION WITH DISCHARGE INSTRUCTIONS AND HIS PERSONAL BELONGINGS WITH GT INTACT AND FLUSHED LEFT UPPER ARM HEPLOCK WRAPPED WITH KIRLIX AND SECURED.
== END 2017-08-01 16:00 | DRG 871 ==
LOC: ER 15:28 → MED 19:32 → TELE 21:45 → MED 07-30 17:15
PROVIDERS: ADMIT Internal Medicine; ATTEND Internal Medicine
PROC: 0DB68ZX Excision of Stomach, Via Natural or Artificial Opening Endoscopic, Diagnostic (ICD-10-PCS; 2017-07-30)
PROC: 0DH63UZ Insertion of Feeding Device into Stomach, Percutaneous Approach (ICD-10-PCS; principal; 2017-07-30 08:45)
DX: A41.9 Sepsis, unspecified organism (principal); I21.4 Non-ST elevation (NSTEMI) myocardial infarction; N17.0 Acute kidney failure with tubular necrosis; J69.0 Pneumonitis due to inhalation of food and vomit; G93.41 Metabolic encephalopathy; R13.10 Dysphagia, unspecified; E46 Unspecified protein-calorie malnutrition; D68.69 Other thrombophilia; G23.1 Progressive supranuclear ophthalmoplegia [Steele-Richardson-Olszewski]; N39.0 Urinary tract infection, site not specified; N13.9 Obstructive and reflux uropathy, unspecified; E83.42 Hypomagnesemia; B96.5 Pseudomonas (aeruginosa) (mallei) (pseudomallei) as the cause of diseases classified elsewhere; E11.9 Type 2 diabetes mellitus without complications; I10 Essential (primary) hypertension; K21.9 Gastro-esophageal reflux disease without esophagitis; M81.0 Age-related osteoporosis without current pathological fracture; Z79.899 Other long term (current) drug therapy; G20 Parkinson's disease; K29.70 Gastritis, unspecified, without bleeding; E78.5 Hyperlipidemia, unspecified; E86.0 Dehydration; Z68.20 Body mass index [BMI] 20.0-20.9, adult; N40.1 Benign prostatic hyperplasia with lower urinary tract symptoms; F02.80 Dementia in other diseases classified elsewhere, unspecified severity, without behavioral disturbance, psychotic disturbance, mood disturbance, and anxiety; Z74.01 Bed confinement status; Z87.11 Personal history of peptic ulcer disease; R65.20 Severe sepsis without septic shock
CPT/HCPCS: 36415; 70030-TC; 71010; 83605; 83735; 83970; 84100; 84155; 84156; 84165; 84300; 85025; 85730; 87040; 87077; 87086; 93005; 93307; A4217; A4663; J1650; J1956; J2185; J2270; J2405; J2543; J3370; J3475; J3490; J7030; J7040; J7042; J7060

== ENCOUNTER 2017-09-18 22:54 | Inpatient (IN) | payer MEDICARE, MEDICAID ==
[~2017-09-18] VITALS: Ht 172.7 cm; Wt 66.3 kg
[~2017-09-18 22:54] MED LIST changes: -ACID1TAB4 PO; -BISA10SU12 RC; -CARB1TAB21 PO; -CHOL10002 PO; -CRAN450T9 PO; +DOCU-141 PO; -DOCU100C36 PO; +ENOX40DI SQ; -FURO-152 PO; +MERO500V IV; +Nut.tx.glucose Intolerance,Soy GT; -PIPE3.379 IV; -PROP10DR4 EACHEYE; -TAMS-3 PO; +TERA5CAP4 PO
--- NOTE | 2017-09-18 23:00 | NUR ---
Jean Claude rodriguez from facility for evaluation of hematuria. Dr. Benitez at bedside for MSE
[2017-09-18] MEDS ORDERED: IV NORMAL SALINE 1000 ML BAG IV ONE (23:15)
[2017-09-18] MEDS ORDERED: TERA2CAP4 GT (23:28)
[2017-09-18] MEDS ORDERED: DULO30CA2 GT (23:28)
[2017-09-18] MEDS ORDERED: DOCU-141 GT (23:28)
[2017-09-18] MEDS ORDERED: FAMO40OR2 GT (23:28)
[2017-09-18] MEDS ORDERED: ACET-2154 GT (23:28)
[2017-09-18] MEDS ORDERED: QUET25TA PO (23:28)
[2017-09-18] MEDS ORDERED: MULT-1185 GT (23:28)
[2017-09-18 23:42] LABS: BASOPHILS # (AUTO) 0.1 K/uL (0.0-8.0); BASOPHILS % (AUTO) 0.8 % (0.0-2.0); EOSINOPHILS # (AUTO) 0.2 K/uL (0.0-0.7); EOSINOPHILS % (AUTO) 2.2 % (0.0-7.0); HEMATOCRIT 41.3 % (40-50); HEMOGLOBIN 13.6 G/DL (14.0-18.0); LYMPHOCYTES # (AUTO) 1.6 K/UL (0.8-4.8); LYMPHOCYTES % (AUTO) 22.4 % (20.5-51.5); MEAN CORPUSCULAR HEMOGLOBIN 27.5 UUG (27.0-31.0); MEAN CORPUSCULAR HGB CONC 33 g/dL (32.0-37.0); MEAN CORPUSCULAR VOLUME 83.4 FL (82.0-92.0); MONOCYTES # (AUTO) 0.3 K/UL (0.1-1.30); MONOCYTES % (AUTO) 4.6 % (0.0-11.0); PLATELET COUNT (AUTO) 166 K/UL (150-450); RED BLOOD CELL COUNT(AUTO) 4.95 MIL/UL (4.7-6.1); WHITE BLOOD COUNT (AUTO) 7.2 K/UL (4.0-11.2)
[2017-09-19 00:08] LABS: ALANINE AMINOTRANSFERASE 39 U/L (16-63); ALKALINE PHOSPHATASE 76 U/L (50-136); ASPARTATE AMINOTRANSFERASE 27 U/L (15-37); BILIRUBIN,DIRECT 0.1 mg/dL (0.0-0.2); BILIRUBIN,TOTAL 0.3 mg/dL (0.2-1.0); CARBON DIOXIDE 30 mmol/L (21-32); CHLORIDE 104 mmol/L (98-107); CREATININE 0.9 mg/dL (0.6-1.3); GLUCOSE 106 mg/dL (74-106); POTASSIUM 4.1 mmol/L (3.5-5.1); TOTAL PROTEIN, SERUM 6.6 g/dL (6.4-8.2); UREA NITROGEN, BLOOD 34 mg/dL (7-18)
--- NOTE | 2017-09-19 00:15 | NUR ---
Stewart inserted and draining edin colored urine with sediment and blood clots.
[2017-09-19 00:40] LABS: *BILIRUBIN,URIN NEGATIVE (NEGATIVE); *BLOOD, URINE 3+ (NEGATIVE); *CLARITY,URINE CLOUDY (CLEAR); *COLOR,URINE YELLOW (YELLOW); *KETONES,URINE NEGATIVE (NEGATIVE); *PROTEIN,URINE 2+ (NEGATIVE); LEUKOCYTE ESTERASE ,URINE 2+ (NEGATIVE); NITRITE, URINE NEGATIVE (NEGATIVE); PH,URINE 8.5 (5.0-8.0); UGLUCOSE NEGATIVE (NEGATIVE)
--- NOTE | 2017-09-19 00:45 | NUR ---
Pt repositioned with pillows for the contractures to BLE
[2017-09-19 00:52] LABS: BAND % (MANUAL) 11 % (0-10); EOSINOPHILS % (MANUAL) 2 % (0-8); LYMPHOCYTES % (MANUAL) 18 % (20-40); METAMYELOCYTES % 3 % (0-1); MONOCYTES % (MANUAL) 3 % (2-10); MYELOCYTES % 2 % (0-0); NEUTROPHILS % (MANUAL) 52 % (42-75)
[2017-09-19 01:11] LABS: BACTERIA,URINE MANY /HPF (NONE SEEN); RBC,URINE 20-50 /HPF (0-3); SQUAMOUS EPITHELIAL CELL,UR FEW /HPF (NONE SEEN); URINE AMORPHOUS PHOSPHATES FEW /HPF; WBC,URINE 20-50 /HPF (0-3)
[2017-09-19] MEDS ORDERED: GENTAMICIN SULFATE INJ 80 MG in IV DEXTROSE 5% 100 ML IV ONE (01:45)
[2017-09-19] MEDS ORDERED: CEFEPIME HCL 1 G in IV DEXTROSE 5% 50 ML IV ONE (01:45)
--- NOTE | 2017-09-19 01:53 | NUR ---
First ABT infusion started, will monitor for any adverse reactions.
[2017-09-19] MEDS ORDERED: CEFEPIME HCL 1 G VIAL ONE (01:58)
[2017-09-19] MEDS ORDERED: MAGNESIUM HYDROXIDE 30 ML LIQUID UDC PO PRN (02:15)
[2017-09-19] MEDS ORDERED: ZOLPIDEM 5 MG TABLET PO PRN (02:15)
[2017-09-19] MEDS ORDERED: ONDANSETRON 4 MG/2 ML VIAL IV PRN (02:15)
[2017-09-19] MEDS ORDERED: ACETAMINOPHEN 325 MG TABLET GT PRN (02:15)
[2017-09-19] MEDS ORDERED: MORPHINE SULFATE 2 MG/1 ML DISP.SYRIN IV PRN (02:15)
[2017-09-19] MEDS ORDERED: MEROPENEM 1 G in IV NORMAL SALINE 100 ML IV SCH ×2 (02:15→08:00)
[2017-09-19] MEDS ORDERED: HYDROCODONE/APAP 5-325MG TABLET PO PRN (02:15)
[2017-09-19] MEDS ORDERED: GENTAMICIN SULFATE 80 MG/2 ML VIAL ONE (02:22)
--- NOTE | 2017-09-19 02:31 | NUR ---
First ABT infusion completed, no adverse reactions noted. Second ABT infusion started, will monitor for any adverse reactions. Report called to QUINN Mejia. Preparing to transfer the pt to his room
--- NOTE | 2017-09-19 02:45 | NUR ---
Received patient from ED via [employer]. A&O x 0. Poor historian. Head to toe assessment done. Unable to ambulate. Noted contractures on right arm and bilateral lower extremities. G tube insertion on the left abdomen. Stewart cath care provided. Urine is orange, red and edin tinged. scab on the right knee, healed. Sacral redness. While doing assessment, patient BM, soft brown stool. Safety initiated. Call light within reach. Will continue to monitor.
[2017-09-19 03:17] VITALS: BP 120/67
[2017-09-19] MEDS: IV NS 1000 ML 1,000 ML IV PRN ×2 (04:03→23:50)
--- NOTE | 2017-09-19 05:00 | NUR ---
tube feeding placement checked, tube feeding started. tolerating well. will continue to monitor.
--- NOTE | 2017-09-19 06:21 | NUR ---
No changes t/o shift. Patient slept the rest of the shift. Turn and repositioned Q2H. Tolerating gtube feeding well. Safety and comfort measures maintained t/o shift. Vital signs stable. All needs met.
[2017-09-19] MEDS ORDERED: Z GUARD REMEDY PASTE 57 GM TUBE TOP PRN (07:45)
[2017-09-19] MEDS: MULTIVITS W-FE,OTHER MIN 15 ML UDC GT SCH (08:22)
[2017-09-19] MEDS: PANTOPRAZOLE SODIUM 40 MG TABLET.DR PO SCH (08:22)
[2017-09-19] MEDS: MEROPENEM 1 G in IV NORMAL SALINE 100 ML IV SCH ×3 (08:22→21:02)
[2017-09-19] MEDS: DULOXETINE 30 MG CAPSULE.DR GT SCH (08:22)
[2017-09-19] MEDS: DOCUSATE SODIUM 100 MG CAPSULE PO SCH (08:22)
[2017-09-19] MEDS: Z GUARD REMEDY PASTE 57 GM TUBE TOP PRN (08:25)
[2017-09-19] MEDS ORDERED: VANCOMYCIN IV 1 G in PREMIXED 0 EACH IV ONE (09:00)
[2017-09-19] MEDS ORDERED: Medication Not On Formulary EA (Multivit-Min/Iron Fum/Folic AC (Multi-Vitamin-Minerals T GT SCH (09:00)
[2017-09-19] MEDS: VANCOMYCIN IV 1 G in PREMIXED 0 EACH IV SCH (10:50)
[2017-09-19 11:07] LABS: ALANINE AMINOTRANSFERASE 32 U/L (16-63); ALKALINE PHOSPHATASE 67 U/L (50-136); ASPARTATE AMINOTRANSFERASE 20 U/L (15-37); BILIRUBIN,TOTAL 0.5 mg/dL (0.2-1.0); CARBON DIOXIDE 24 mmol/L (21-32); CHLORIDE 107 mmol/L (98-107); CREATININE 0.9 mg/dL (0.6-1.3); GLUCOSE 116 mg/dL (74-106); MAGNESIUM 1.6 mg/dL (1.8-2.4); PHOSPHOROUS 2.9 mg/dL (2.5-4.9); POTASSIUM 4.4 mmol/L (3.5-5.1); TOTAL PROTEIN, SERUM 5.8 g/dL (6.4-8.2); UREA NITROGEN, BLOOD 28 mg/dL (7-18)
[2017-09-19 11:16] LABS: BASOPHILS % (AUTO) 0.6 % (0.0-2.0); EOSINOPHILS # (AUTO) 0.2 K/uL (0.0-0.7); EOSINOPHILS % (AUTO) 3.4 % (0.0-7.0); HEMATOCRIT 36.3 % (36.7-47.1); HEMOGLOBIN 12.3 g/dL (12.5-16.3); LYMPHOCYTES # (AUTO) 1.9 K/uL (20.0-40.0); LYMPHOCYTES % (AUTO) 30.4 % (20.5-51.5); MEAN CORPUSCULAR HEMOGLOBIN 28.2 uug (23.8-33.4); MEAN CORPUSCULAR HGB CONC 34 g/dL (32.5-36.3); MEAN CORPUSCULAR VOLUME 83.2 fL (73.0-96.2); MONOCYTES # (AUTO) 0.4 K/uL (2.0-10.0); MONOCYTES % (AUTO) 6.9 % (0.0-11.0); NEUTROPHILS # (AUTO) 3.6 K/uL (1.8-8.9); NEUTROPHILS % (AUTO) 58.7 % (38.5-71.5); PLATELET COUNT (AUTO) 143 K/uL (152-348); RED BLOOD CELL COUNT(AUTO) 4.36 MIL/uL (4.06-5.63); WHITE BLOOD COUNT (AUTO) 6.2 K/uL (3.6-10.2)
[2017-09-19 11:18] LABS: THYROID STIMULATING HORMONE 0.496 mIU/mL (0.358-3.740)
[2017-09-19 12:52] VITALS: BP 107/65
[2017-09-19] MEDS ORDERED: MAGNESIUM SULFATE/D5W 100 ML IV SCH (13:30)
--- NOTE | 2017-09-19 13:34 | NUR ---
PATIENT SEEN AND EXAMINED BY KIRA EXERCISE RIDER AND SHE SPOKE WITH THE PATIENTS AND UPDATED HER ON THE PATIENTS CONDITION .NEW ORDER FOR MAGNESSIUM NOTED LEVEL IS 1.6 AT THIS TIME
--- NOTE | 2017-09-19 15:10 | NUR ---
Clinical Pharmacy Note: Vancomycin Pharmacy to Dose Subjective: To start vanco in this 77 y/o gentleman for indication of UTI Objective: height 172 cm weight 66 kg BUN 34 Scr 0.9 Wbc 7.2 temp 99.6 Assessment/Plan Will start vanco 1gm q16 hr for estimated trough of 15.31. First dose today at 1000. Will order trough before 4th scheduled dose (not ordered yet). Will change if renal function seems unstable. Will follow
[2017-09-19 15:55] VITALS: BP 110/65
--- NOTE | 2017-09-19 17:31 | NUR ---
Consult order placed for GTF. Patient is 77 y/o male demented chronically encephalopathic bedbound who present for hematuria. currently on cardiac diet, spoke with the nurse and request to d/c current cardiac diet nutrition support: TF order is Diabetisoruce AC @75ml/hr x [address] will rec initiate at lower rate 10ml, advance [id number] to goal rate of Diabetisoruce 75ml/hr x 20 hrs. This nutrition support will provide 1800 kcal,90 gm protein, &1227 ml H2O estimated kcal/protein needs; kcal:25-30 kcal/k0540-8703 kcal protein:1-1.3 gm/k-86 gm monitor:TF tolerates,wt,new labs Addendum: 09/19/17 at [address] Amended: Links added.
--- NOTE | 2017-09-19 19:40 | NUR ---
RECEIVED PATIENT IN BED, EYES CLOSED BUT RESPONSIVE TO PAIN, AND TOUCH, NO SOB NO CHEST PAIN NOTED, NO COUGHING NO CONGESTION NOTED, HOB ELEVATE, GTF TOLERATE WELL, ELI CATH PATENT, DRAINING WITH YELLOW COLOR URINE IN MODERATE AMOUNT, TURN AND REPOSITION, KEPT CLEAN AND DRY, CONT TO MONITOR.
[2017-09-19] MEDS: TERAZOSIN 2 MG CAPSULE GT SCH (20:39)
[2017-09-19] MEDS: QUETIAPINE FUMARATE 25 MG TABLET PO SCH (20:40)
[2017-09-19 20:46] VITALS: BP 115/63
[2017-09-19] MEDS: DIABETICSOURCE AC 1000ML LIQUID GT PRN (23:49)
[2017-09-20] MEDS: VANCOMYCIN IV 1 G in PREMIXED 0 EACH IV SCH ×2 (01:12→17:18)
[2017-09-20 04:00] VITALS: BP 109/49
[2017-09-20] MEDS: PANTOPRAZOLE SODIUM 40 MG TABLET.DR PO SCH (05:38)
[2017-09-20] MEDS: MEROPENEM 1 G in IV NORMAL SALINE 100 ML IV SCH ×3 (05:38→21:14)
[2017-09-20 06:46] LABS: BASOPHILS % (AUTO) 0.6 % (0.0-2.0); EOSINOPHILS # (AUTO) 0.2 K/uL (0.0-0.7); EOSINOPHILS % (AUTO) 3.5 % (0.0-7.0); HEMATOCRIT 34.3 % (36.7-47.1); HEMOGLOBIN 11.9 g/dL (12.5-16.3); LYMPHOCYTES # (AUTO) 1.2 K/uL (20.0-40.0); LYMPHOCYTES % (AUTO) 20.5 % (20.5-51.5); MEAN CORPUSCULAR HEMOGLOBIN 28.8 uug (23.8-33.4); MEAN CORPUSCULAR HGB CONC 35 g/dL (32.5-36.3); MEAN CORPUSCULAR VOLUME 83.1 fL (73.0-96.2); MONOCYTES # (AUTO) 0.5 K/uL (2.0-10.0); MONOCYTES % (AUTO) 7.8 % (0.0-11.0); NEUTROPHILS # (AUTO) 4.1 K/uL (1.8-8.9); NEUTROPHILS % (AUTO) 67.6 % (38.5-71.5); PLATELET COUNT (AUTO) 138 K/uL (152-348); RED BLOOD CELL COUNT(AUTO) 4.12 MIL/uL (4.06-5.63)
--- NOTE | 2017-09-20 06:50 | NUR ---
PATIENT SLEPT MOST OF THE NIGHT, HOB ELEVATED, GTF TOLERATE WELL, NO RESIDUAL, NO NAUSEA NO VOMITTING NOTED, TURN AND REPOSITION, ELI CATH PATENT WITH SHIRLEY AND SEDIMENT NOTED, KEPT CLEAN AND DRY, CONT TO MONITOR.
[2017-09-20 06:51] LABS: ALANINE AMINOTRANSFERASE 28 U/L (16-63); ALKALINE PHOSPHATASE 66 U/L (50-136); ASPARTATE AMINOTRANSFERASE 22 U/L (15-37); BILIRUBIN,TOTAL 0.4 mg/dL (0.2-1.0); CARBON DIOXIDE 27 mmol/L (21-32); CHLORIDE 104 mmol/L (98-107); CHOLESTEROL 99 mg/dL (<200); CREATININE 0.8 mg/dL (0.6-1.3); GLUCOSE 93 mg/dL (74-106); HDL CHOLESTEROL 44 mg/dL (40-60); MAGNESIUM 1.6 mg/dL (1.8-2.4); PHOSPHOROUS 2.3 mg/dL (2.5-4.9); POTASSIUM 4.1 mmol/L (3.5-5.1); TOTAL PROTEIN, SERUM 5.7 g/dL (6.4-8.2); TRIGLYCERIDES 46 MG/DL (30-150); UREA NITROGEN, BLOOD 26 mg/dL (7-18)
[2017-09-20 07:16] LABS: IRON, SERUM 23 ug/dL (50-175)
[2017-09-20] MEDS: DOCUSATE SODIUM 100 MG CAPSULE PO SCH (08:34)
[2017-09-20] MEDS: DULOXETINE 30 MG CAPSULE.DR GT SCH (08:34)
[2017-09-20] MEDS: MULTIVITS W-FE,OTHER MIN 15 ML UDC GT SCH (08:35)
[2017-09-20] MEDS: Z GUARD REMEDY PASTE 57 GM TUBE TOP PRN (08:37)
[2017-09-20] MEDS ORDERED: NEUTRA PHOS PACKET GT ONE (10:00)
--- NOTE | 2017-09-20 10:04 | NUR ---
PATIENT SEEN AND EXAMINED BY KIRA WAFER SLICER WITH NEW ORDERS PHOS IS 2.6, MAG IS 1.6 WITH REPLACEMENT ORDERS AT THIS TIME.
[2017-09-20] MEDS: FERROUS SULFATE 300 MG/5 ML LIQUID UDC GT SCH ×2 (10:29→21:13)
[2017-09-20] MEDS ORDERED: MAGNESIUM SULFATE/D5W 100 ML IV SCH (10:30)
[2017-09-20 11:25] VITALS: BP 110/57
--- NOTE | 2017-09-20 12:30 | NUR ---
PATIENT SEEN AND EXAMINED BY DR HOOKER WITH NEW ORDERS AND NOTED.
--- NOTE | 2017-09-20 13:30 | NUR ---
SEEN BY THE SPEECH AND LANGUAGE THERAPIST [ATIENT IS TO HAVE LUNCH FOR ORAL GRATIFICATION ONLY WHEN THE FAMILY IS HERE TO FEED HIM. HERE AND AWARE.
--- NOTE | 2017-09-20 14:20 | NUR ---
Clinical Pharmacy Note: Vancomycin Pharmacy to Dose Subjective: T To continue vanco in this 77 y/o gentleman for indication of UTI(significant UTI/cystitis with hematuria, possible early sepsis) Objective: height 172 cm weight 66 kg BUN 26 Scr 0.8 Wbc 6.0 temp 99.1 Assessment/Plan Will continue vanco 1gm q16 hr for estimated trough of 15.31. Third dose today at 1800. Will order trough before 4th scheduled dose (ordered for tomorrow at 0930). Will change if renal function seems unstable. Will follow
[2017-09-20 15:48] VITALS: BP 107/55
--- NOTE | 2017-09-20 15:56 | NUR ---
PICKED UP BY BED TO THE RADIOLOGY DEPT FOR CT HEAD ORDERED.
[2017-09-20] MEDS: CARBIDOPA/LEVODOPA 25-100MG TABLET PO SCH (16:16)
[2017-09-20] MEDS: DIABETICSOURCE AC 1000ML LIQUID GT PRN (17:29)
[2017-09-20] MEDS: IV NS 1000 ML 1,000 ML IV PRN (17:29)
--- NOTE | 2017-09-20 18:00 | NUR ---
TURNED AND REPOSITIONED Q2H MADE COMFORTABLE TOLERATING HIS GT FEEDINGS ORDERED NO ADVERSE OR ALLERGIC REACTIONS FROM ANTIBIOTICS ORDERED WILL CONTINUE TO OBSERVE.
--- NOTE | 2017-09-20 19:30 | NUR ---
RECEIVED PATIENT IN BED, NO SOB NO CHEST PAIN NOTED, GTF TOLERATE WELL, NO RESIDUAL NOTED, ELI CATH PATENT, DRAINING WITH YELLOW COLOR URINE IN MODERATE AMOUNT, KEPT CLEAN AND DRY TURN AND REPOSITION EVERY TWO HOURS. CONT ABX FOR HEMATURIA, KEPT COMFORTABLE.
[2017-09-20 20:00] VITALS: BP 101/68
[2017-09-20] MEDS: QUETIAPINE FUMARATE 25 MG TABLET PO SCH (20:44)
[2017-09-20] MEDS: Z GUARD REMEDY PASTE 57 GM TUBE TOP SCH (20:45)
[2017-09-20] MEDS: TERAZOSIN 2 MG CAPSULE GT SCH (20:45)
[2017-09-21 05:00] VITALS: BP 114/56
[2017-09-21] MEDS: MEROPENEM 1 G in IV NORMAL SALINE 100 ML IV SCH ×3 (05:48→22:04)
[2017-09-21] MEDS: PANTOPRAZOLE SODIUM 40 MG TABLET.DR PO SCH (05:48)
[2017-09-21 06:44] LABS: ALANINE AMINOTRANSFERASE 22 U/L (16-63); ALKALINE PHOSPHATASE 65 U/L (50-136); ASPARTATE AMINOTRANSFERASE 17 U/L (15-37); BILIRUBIN,TOTAL 0.4 mg/dL (0.2-1.0); CARBON DIOXIDE 27 mmol/L (21-32); CHLORIDE 107 mmol/L (98-107); CREATININE 0.8 mg/dL (0.6-1.3); GLUCOSE 99 mg/dL (74-106); MAGNESIUM 1.8 mg/dL (1.8-2.4); PHOSPHOROUS 2.2 mg/dL (2.5-4.9); POTASSIUM 4.2 mmol/L (3.5-5.1); TOTAL PROTEIN, SERUM 5.7 g/dL (6.4-8.2); UREA NITROGEN, BLOOD 26 mg/dL (7-18)
--- NOTE | 2017-09-21 06:51 | NUR ---
PATIENT SLEPT MOST OF THE NIGHT, NO SOB NO CHEST PAIN NOTED, TOLERATE GTF, NO NAUSEA NO VOMITTING NOTED, NO COUGHING NO CONGETION NOTED, TURN AND REPOSITION EVERY TWO HOURS, ELI CATH PATENT DRAINING WITH YELLOW COLOR URINE, WITH SMALL AMOUNT OF SEDIMENT NOTED, NO S/S OF PAIN AT THIS TIME.
[2017-09-21 07:39] LABS: EOSINOPHILS # (AUTO) 0.2 K/uL (0.0-0.7); EOSINOPHILS % (AUTO) 5.6 % (0.0-7.0); HEMOGLOBIN 12.1 g/dL (12.5-16.3); LYMPHOCYTES # (AUTO) 0.9 K/uL (20.0-40.0)
[2017-09-21 07:52] LABS: BASOPHILS % (AUTO) 0.6 % (0.0-2.0); HEMATOCRIT 35.1 % (36.7-47.1); LYMPHOCYTES % (AUTO) 20.5 % (20.5-51.5); MEAN CORPUSCULAR HEMOGLOBIN 28.6 uug (23.8-33.4); MEAN CORPUSCULAR HGB CONC 35 g/dL (32.5-36.3); MEAN CORPUSCULAR VOLUME 82.6 fL (73.0-96.2); MONOCYTES # (AUTO) 0.3 K/uL (2.0-10.0); NEUTROPHILS # (AUTO) 2.8 K/uL (1.8-8.9); NEUTROPHILS % (AUTO) 65.3 % (38.5-71.5); PLATELET COUNT (AUTO) 134 K/uL (152-348); RED BLOOD CELL COUNT(AUTO) 4.25 MIL/uL (4.06-5.63)
[2017-09-21 07:54] LABS: WHITE BLOOD COUNT (AUTO) 4.3 K/uL (3.6-10.2)
[2017-09-21] MEDS: FERROUS SULFATE 300 MG/5 ML LIQUID UDC GT SCH ×2 (08:43→21:43)
[2017-09-21] MEDS: CARBIDOPA/LEVODOPA 25-100MG TABLET PO SCH ×2 (08:44→16:42)
[2017-09-21] MEDS: Z GUARD REMEDY PASTE 57 GM TUBE TOP SCH ×2 (08:44→21:45)
[2017-09-21] MEDS: DULOXETINE 30 MG CAPSULE.DR GT SCH (08:44)
[2017-09-21] MEDS: DOCUSATE SODIUM 100 MG CAPSULE PO SCH (08:44)
[2017-09-21 09:41] LABS: *OCCULT BLOOD STOOL NEGATIVE (NEGATIVE)
[2017-09-21] MEDS ORDERED: NEUTRA PHOS PACKET GT ONE (10:30)
[2017-09-21] MEDS ORDERED: VANCOMYCIN IV 1 G in PREMIXED 0 EACH IV SCH (10:30)
[2017-09-21 11:05] VITALS: BP 125/69
[2017-09-21] MEDS: IV NS 1000 ML 1,000 ML IV PRN (14:32)
[2017-09-21] MEDS: MULTIVITS W-FE,OTHER MIN 15 ML UDC GT SCH (14:32)
[2017-09-21 15:23] VITALS: BP 125/66
[2017-09-21 20:00] VITALS: BP 114/65
[2017-09-21] MEDS: TERAZOSIN 2 MG CAPSULE GT SCH (21:44)
[2017-09-21] MEDS: QUETIAPINE FUMARATE 25 MG TABLET PO SCH (21:44)
[2017-09-21] MEDS: DIABETICSOURCE AC 1000ML LIQUID GT PRN (22:19)
[2017-09-22 04:43] VITALS: BP 120/67
[2017-09-22] MEDS: MEROPENEM 1 G in IV NORMAL SALINE 100 ML IV SCH ×2 (05:00→14:00)
[2017-09-22] MEDS: PANTOPRAZOLE SODIUM 40 MG TABLET.DR PO SCH (05:38)
[2017-09-22] MEDS: IV NS 1000 ML 1,000 ML IV PRN (06:17)
[2017-09-22] MEDS: MULTIVITS W-FE,OTHER MIN 15 ML UDC GT SCH (08:59)
[2017-09-22] MEDS: FERROUS SULFATE 300 MG/5 ML LIQUID UDC GT SCH (08:59)
[2017-09-22] MEDS: DULOXETINE 30 MG CAPSULE.DR GT SCH (08:59)
[2017-09-22] MEDS: CARBIDOPA/LEVODOPA 25-100MG TABLET PO SCH (08:59)
[2017-09-22] MEDS ORDERED: DOCUSATE SODIUM 100 MG/10 ML LIQUID UDC GT SCH (09:00)
[2017-09-22] MEDS: Z GUARD REMEDY PASTE 57 GM TUBE TOP SCH (09:00)
[2017-09-22 11:19] VITALS: BP 97/52
[2017-09-22 11:25] LABS: BASOPHILS % (AUTO) 0.8 % (0.0-2.0); EOSINOPHILS # (AUTO) 0.2 K/uL (0.0-0.7); EOSINOPHILS % (AUTO) 5.8 % (0.0-7.0); HEMATOCRIT 37.1 % (36.7-47.1); HEMOGLOBIN 12.5 g/dL (12.5-16.3); LYMPHOCYTES # (AUTO) 1.2 K/uL (20.0-40.0); LYMPHOCYTES % (AUTO) 32.5 % (20.5-51.5); MEAN CORPUSCULAR HEMOGLOBIN 27.9 uug (23.8-33.4); MEAN CORPUSCULAR HGB CONC 34 g/dL (32.5-36.3); MEAN CORPUSCULAR VOLUME 82.9 fL (73.0-96.2); MONOCYTES # (AUTO) 0.3 K/uL (2.0-10.0); MONOCYTES % (AUTO) 9.4 % (0.0-11.0); NEUTROPHILS # (AUTO) 1.8 K/uL (1.8-8.9); NEUTROPHILS % (AUTO) 51.5 % (38.5-71.5); PLATELET COUNT (AUTO) 148 K/uL (152-348); RED BLOOD CELL COUNT(AUTO) 4.47 MIL/uL (4.06-5.63); WHITE BLOOD COUNT (AUTO) 3.6 K/uL (3.6-10.2)
[2017-09-22 11:39] LABS: ALANINE AMINOTRANSFERASE 18 U/L (16-63); ALKALINE PHOSPHATASE 67 U/L (50-136); ASPARTATE AMINOTRANSFERASE 18 U/L (15-37); BILIRUBIN,TOTAL 0.3 mg/dL (0.2-1.0); CARBON DIOXIDE 24 mmol/L (21-32); CHLORIDE 103 mmol/L (98-107); CREATININE 0.7 mg/dL (0.6-1.3); GLUCOSE 122 mg/dL (74-106); MAGNESIUM 1.8 mg/dL (1.8-2.4); PHOSPHOROUS 2.2 mg/dL (2.5-4.9); POTASSIUM 4.1 mmol/L (3.5-5.1); TOTAL PROTEIN, SERUM 6.1 g/dL (6.4-8.2); UREA NITROGEN, BLOOD 22 mg/dL (7-18)
[2017-09-22] MEDS ORDERED: FERR300L GT (12:28)
[2017-09-22] MEDS ORDERED: Nut.tx.glucose Intolerance,Soy GT (12:28)
[2017-09-22] MEDS ORDERED: MERO1PIG IV (12:28)
[2017-09-22] MEDS ORDERED: CARB1TAB21 PO (12:28)
[2017-09-22] MEDS ORDERED: ACET325T53 GT (12:28)
[2017-09-22] MEDS ORDERED: LACT1CAP72 GT (12:29)
[2017-09-22] MEDS ORDERED: NEUTRA PHOS PACKET PO ONE (12:30)
--- NOTE | 2017-09-22 14:31 | NUR ---
Report called to Nurse Demetra pt off the unit in stable condition with Stewart intact and SL intact as well, Flushed prior to pts dc back to [facility] g-tube feeding stopped prior to going to facility.
--- NOTE | 2017-09-22 14:39 | NUR ---
Pt dc'd back to SNF.
== END 2017-09-22 14:30 | DRG 871 ==
LOC: ER 22:57 → MED 09-19 01:31
PROVIDERS: ADMIT Internal Medicine; ATTEND Internal Medicine
DX: A41.9 Sepsis, unspecified organism (principal); G93.41 Metabolic encephalopathy; E44.0 Moderate protein-calorie malnutrition; D68.59 Other primary thrombophilia; D69.6 Thrombocytopenia, unspecified; E11.65 Type 2 diabetes mellitus with hyperglycemia; E83.39 Other disorders of phosphorus metabolism; G23.1 Progressive supranuclear ophthalmoplegia [Steele-Richardson-Olszewski]; E87.1 Hypo-osmolality and hyponatremia; N30.91 Cystitis, unspecified with hematuria; E83.42 Hypomagnesemia; G20 Parkinson's disease; F02.80 Dementia in other diseases classified elsewhere, unspecified severity, without behavioral disturbance, psychotic disturbance, mood disturbance, and anxiety; R65.20 Severe sepsis without septic shock; Z68.22 Body mass index [BMI] 22.0-22.9, adult; D50.9 Iron deficiency anemia, unspecified; Z74.01 Bed confinement status; K21.0 Gastro-esophageal reflux disease with esophagitis; Z87.11 Personal history of peptic ulcer disease; I25.2 Old myocardial infarction; Z93.1 Gastrostomy status; Z91.81 History of falling; M85.80 Other specified disorders of bone density and structure, unspecified site; N40.0 Benign prostatic hyperplasia without lower urinary tract symptoms; Z79.899 Other long term (current) drug therapy; Z87.440 Personal history of urinary (tract) infections; I67.2 Cerebral atherosclerosis; E78.5 Hyperlipidemia, unspecified; F31.9 Bipolar disorder, unspecified; I10 Essential (primary) hypertension
CPT/HCPCS: 36415; 70030-TC; 70450; 71010; 76770; 83550; 83605; 83735; 84100; 84153; 84443; 85025; 85610; 85730; 87040; 87086; 92507; 92610; 93005; A4663; J0692; J1580; J2185; J3370; J3475; J3490; J7030; J7060

== ENCOUNTER 2017-11-20 02:27 | Inpatient (IN) | payer MEDICARE, MEDICAID ==
[~2017-11-20] VITALS: Ht 165.1 cm; Wt 64.4 kg
[~2017-11-20 02:27] MED LIST changes: -ACET-2799 PO; +ACET325T53 GT; +CARB1TAB21 PO; +DOCU-141 GT; -DOCU-141 PO; +DULO30CA2 GT; -DULO30CA2 PO; -ENOX40DI SQ; +FAMO40OR2 GT; +FERR300L GT; +LACT1CAP72 GT; +MERO1PIG IV; -MERO500V IV; +MULT-1185 GT; -MULT-24 PO; -PANT40TA2 PO; +TERA2CAP4 GT; -TERA5CAP4 PO
[2017-11-20] MEDS ORDERED: IV NORMAL SALINE 1000 ML BAG IV ONE ×2 (02:45→03:15)
--- NOTE | 2017-11-20 02:45 | NUR ---
Pt michael from [facility] for fever. Pt warm to touch with a rectal temp of 100.1, NSR on monitor. Resp even and unlabored. Pt has noted contractures to both arms and legs. Dr. Don at bedside for MSE
[2017-11-20] MEDS ORDERED: DULO30CA2 GT (03:06)
[2017-11-20] MEDS ORDERED: TAMS-3 GT (03:06)
[2017-11-20] MEDS ORDERED: CARB-93 GT (03:06)
[2017-11-20] MEDS ORDERED: ZINC220C8 GT (03:06)
[2017-11-20] MEDS ORDERED: ACET650S24 RC (03:06)
[2017-11-20] MEDS ORDERED: ASCO500T10 GT (03:06)
[2017-11-20] MEDS ORDERED: MULT-213 GT (03:06)
[2017-11-20] MEDS ORDERED: HEPA500013 SQ (03:06)
[2017-11-20 03:19] LABS: BASOPHILS # (AUTO) 0.1 K/uL (0.0-8.0); BASOPHILS % (AUTO) 0.4 % (0.0-2.0); EOSINOPHILS # (AUTO) 0.1 K/uL (0.0-0.7); EOSINOPHILS % (AUTO) 0.6 % (0.0-7.0); HEMOGLOBIN 10.4 g/dL (12.5-16.3); LYMPHOCYTES # (AUTO) 2.4 K/uL (20.0-40.0); LYMPHOCYTES % (AUTO) 17.2 % (20.5-51.5); MEAN CORPUSCULAR HEMOGLOBIN 27.9 uug (23.8-33.4); MEAN CORPUSCULAR HGB CONC 33 g/dL (32.5-36.3); NEUTROPHILS # (AUTO) 10.6 K/uL (1.8-8.9); NEUTROPHILS % (AUTO) 74.8 % (38.5-71.5); PLATELET COUNT (AUTO) 184 K/uL (152-348); RED BLOOD CELL COUNT(AUTO) 3.72 MIL/uL (4.06-5.63); WHITE BLOOD COUNT (AUTO) 14.2 K/uL (3.6-10.2)
[2017-11-20] MEDS ORDERED: VANCOMYCIN IV 1,000 MG in IV DEXTROSE 5% 250 ML IV ONE (03:30)
[2017-11-20] MEDS ORDERED: PIPERACILLIN SODIUM/TAZOBACTAM 3.375 G in IV DEXTROSE 5% 50 ML IV ONE (03:30)
--- NOTE | 2017-11-20 03:30 | NUR ---
Dr. Don notified of pt's blood pressure, awaiting further orders.
[2017-11-20 03:37] LABS: *BILIRUBIN,URIN NEGATIVE (NEGATIVE); *BLOOD, URINE 3+ (NEGATIVE); *CLARITY,URINE CLOUDY (CLEAR); *COLOR,URINE YELLOW (YELLOW); *KETONES,URINE NEGATIVE (NEGATIVE); *PROTEIN,URINE 1+ (NEGATIVE); LEUKOCYTE ESTERASE ,URINE 3+ (NEGATIVE); NITRITE, URINE POSITIVE (NEGATIVE); UGLUCOSE NEGATIVE (NEGATIVE)
[2017-11-20 03:38] LABS: CARBON DIOXIDE 27 mmol/L (21-32); CHLORIDE 111 mmol/L (98-107); CREATININE 1.2 mg/dL (0.6-1.3); GLUCOSE 111 mg/dL (74-106); POTASSIUM 4.2 mmol/L (3.5-5.1); UREA NITROGEN, BLOOD 69 mg/dL (7-18)
[2017-11-20 03:44] LABS: ALANINE AMINOTRANSFERASE 82 U/L (16-63); ALKALINE PHOSPHATASE 91 U/L (50-136); ASPARTATE AMINOTRANSFERASE 27 U/L (15-37); BILIRUBIN,DIRECT 0.1 mg/dL (0.0-0.2); BILIRUBIN,TOTAL 0.3 mg/dL (0.2-1.0); LIPASE 257 U/L (73-393); TOTAL PROTEIN, SERUM 7.1 g/dL (6.4-8.2)
[2017-11-20 03:46] LABS: RBC,URINE 50-80 /HPF (0-3); WBC,URINE TNTC /HPF (0-3)
--- NOTE | 2017-11-20 03:46 | NUR ---
Blood pressure slightly improving. No obvious signs of distress
[2017-11-20 03:47] LABS: BACTERIA,URINE MANY /HPF (NONE SEEN); SQUAMOUS EPITHELIAL CELL,UR FEW /HPF (NONE SEEN)
--- NOTE | 2017-11-20 03:52 | NUR ---
Second IV established, second liter of NS infusing freely to gravity. First ABT infusion started, will monitor for any adverse reactions. Blood pressure improving with fluid bolus.
--- NOTE | 2017-11-20 03:52 | NUR ---
Mick reproduction technician paged for Dr. Don
[2017-11-20] MEDS ORDERED: PIPERACILLIN/TAZOBACTAM/D5W 50 ML IV ONE (03:57)
[2017-11-20 04:00] VITALS: BP 93/44
--- NOTE | 2017-11-20 04:08 | NUR ---
Dr. Don notified of decrease in pt's blood pressure. Fluid bolus cont infusing. Pt arrived to ER with thurston already in place from facility. Dr. Don aware and declines need to change thurston at this time.
[2017-11-20] MEDS ORDERED: VANCOMYCIN IV 200 ML ONE (04:17)
--- NOTE | 2017-11-20 04:17 | NUR ---
Report called to QUINN Hilliard. Preparing to transfer pt to the floor.
[2017-11-20] MEDS ORDERED: IV NS 1000 ML 1,000 ML IV PRN (04:58)
[2017-11-20] MEDS ORDERED: ZOLPIDEM 5 MG TABLET PO PRN (05:00)
[2017-11-20] MEDS ORDERED: ACETAMINOPHEN 650 MG SUPP.RECT RC PRN (05:00)
[2017-11-20] MEDS ORDERED: IV NORMAL SALINE 500 ML BAG IV ONE (05:00)
[2017-11-20] MEDS ORDERED: HYDROCODONE/APAP 5-325MG TABLET GT PRN (05:00)
[2017-11-20] MEDS ORDERED: Z GUARD REMEDY PASTE 57 GM TUBE TOP PRN (05:00)
[2017-11-20] MEDS ORDERED: ACETAMINOPHEN 325 MG TABLET PO PRN (05:00)
[2017-11-20] MEDS ORDERED: [UNRECOGNIZED DRUG - REMARK] GT PRN (05:00)
[2017-11-20] MEDS ORDERED: ONDANSETRON 4 MG/2 ML VIAL IV PRN (05:00)
[2017-11-20] MEDS ORDERED: MAGNESIUM HYDROXIDE 30 ML LIQUID UDC GT PRN (05:00)
[2017-11-20] MEDS ORDERED: MORPHINE SULFATE 2 MG/1 ML DISP.SYRIN IV PRN (05:00)
[2017-11-20 05:27] LABS: IRON, SERUM 19 ug/dL (50-175)
[2017-11-20] MEDS ORDERED: CEFEPIME HCL 1 G in IV DEXTROSE 5% 50 ML IV SCH (06:00)
--- NOTE | 2017-11-20 06:59 | NUR ---
0520A RECEIVED A 77 YEAR OLD MALE FROM [facility] WITH ADMITTING DIAGNOSIS OF DEHYDRATION AND UTI. AWAKE BUT NON VERBAL. PATIENT MOANING WHEN BEING TOUCHED OR REPOSITIONED. PATIENT HAS A PEG TUBE. INITIAL ASSESSMENT DONE BASE ON PREVIOUS RECORD. NO FAMILY MEMBER PRESENT. PATIENT HAS 2 HEPLOCKS ON LEFT ARM. BILATERAL LOWER EXTREMITIES CONTRACTED. ON TELEMETRY PT IN NSR. VITALS SIGNS TAKEN AND RECORDED. HAS HX OF PARKINSONS, GERD, DEMENTIA, HTN. PATIENT HAS A RIGHT HIP ULCER, COCCYX AREA, SACRAL ARE, LEFT FOOT AND RIGHT HEEL.(SEE ASSESSSMENT PICTURES}
[2017-11-20] MEDS ORDERED: ACETAMINOPHEN 650 MG/20.3 ML LIQUID UDC GT PRN (07:15)
[2017-11-20] MEDS ORDERED: MORPHINE SULFATE 4 MG/1 ML DISP.SYRIN IV PRN (07:15)
[2017-11-20] MEDS: CEFEPIME HCL 1 G in IV DEXTROSE 5% 50 ML IV SCH ×2 (08:10→21:56)
[2017-11-20] MEDS ORDERED: DOCUSATE SODIUM 100 MG CAPSULE PO SCH ×2 (09:00→21:00)
[2017-11-20] MEDS ORDERED: DULOXETINE 30 MG CAPSULE.DR GT SCH (09:00)
[2017-11-20] MEDS ORDERED: CARBIDOPA/LEVODOPA 25-100MG TABLET PO SCH (09:00)
[2017-11-20] MEDS: DOCUSATE SODIUM 100 MG/10 ML LIQUID UDC GT SCH (09:22)
[2017-11-20] MEDS: LACTOBACILLUS RHAMNOSUS GG 1 EACH CAPSULE GT SCH ×2 (09:23→21:56)
[2017-11-20] MEDS: MULTIVIT, IRON, MIN NO. 8, FA TABLET GT SCH (09:23)
[2017-11-20] MEDS: TAMSULOSIN HCL 0.4 MG CAP.SR.24H XX SCH (09:23)
[2017-11-20] MEDS: ASCORBIC ACID 500 MG TABLET GT SCH (09:23)
[2017-11-20] MEDS: ZINC SULFATE 220 MG CAPSULE GT SCH (09:23)
[2017-11-20] MEDS: DULOXETINE 30 MG CAPSULE.DR GT SCH (09:23)
[2017-11-20] MEDS: CARBIDOPA/LEVODOPA 25-100MG TABLET GT SCH ×2 (09:23→17:35)
[2017-11-20] MEDS: FERROUS SULFATE 300 MG/5 ML LIQUID UDC GT SCH ×2 (11:27→21:56)
[2017-11-20 11:40] VITALS: BP 96/51
--- NOTE | 2017-11-20 14:12 | NUR ---
WOUND CARE CONSULT: PT PRESENTS WITH SEVERAL UNSTAGEABLE ULCERS TO LOWER BACK, SACRUM AND LEFT HIP ESCHAR ALONG WITH RT HIP DEEP TISSUE INJURY (INTACT WITH SCARRING), RT FOOT DEEP TISSUE INJURIES (INTACT) AND LEFT LATERAL ANKLE INTACT DEEP TISSUE INJURY, ALL PRESENT ON ADMISSION. LEFT HEEL AND LEFT ELBOW SCARRING NOTED. 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 ALL SKIN PROTECTION AND WOUND RECOMMENDATIONS DISCUSSED WITH NURSING STAFF. FIRST STEP MATTRESS ORDERED. SURGICAL CONSULT RECOMMENDED. WILL SEE PRN. IN AGREEMENT WITH PLAN OF CARE. CURRENT IMMANUEL SCORE IS 10. Addendum: 11/20/17 at 1415 by SHANE FLAHERTY RN Amended: Links added.
[2017-11-20 15:34] VITALS: BP 92/58
[2017-11-20 20:00] VITALS: BP 98/46
--- NOTE | 2017-11-20 20:00 | NUR ---
RECEIVED PT AWAKE, HE'S NON VERBAL AND UNABLE TO STATE HIS NEEDS. G-TUBE PLACEMENT CHECKED WITH 20 CC OF AIR, AND PATENT, NO RETURN RESIDUE OF FEEDING. PT WITH NO S/S OF PAIN OR DISTRESS NOTED AT PRESENT, WILL CONTINUE TO MONITOR PT
[2017-11-20] MEDS ORDERED: TERAZOSIN 2 MG CAPSULE GT SCH (21:00)
[2017-11-20] MEDS: TERAZOSIN 5 MG CAPSULE GT SCH (21:00)
[2017-11-20] MEDS: QUETIAPINE FUMARATE 25 MG TABLET GT SCH (21:56)
--- NOTE | 2017-11-21 | NUR ---
PT CONTINUES TO SLEEP WITH NO S/S OF PAIN OR DISTRESS NOTED. PT WAS TURNED AND REPOSITIONED, TOLERATED INTERVENTION WELL. NO FURTHER CHANGES, WILL CONTINUE TO MONITOR PT
[2017-11-21 04:39] VITALS: BP 107/68
--- NOTE | 2017-11-21 07:19 | NUR ---
PT IS ASLEEP WITH NO S/S OF PAIN OR DISTRESS AT PRESENT, ALL NEEDS WERE MET AND ANTICIPATED
[2017-11-21 07:31] LABS: BASOPHILS % (AUTO) 0.4 % (0.0-2.0); EOSINOPHILS # (AUTO) 0.4 K/uL (0.0-0.7); EOSINOPHILS % (AUTO) 4.2 % (0.0-7.0); HEMATOCRIT 28.9 % (36.7-47.1); HEMOGLOBIN 9.6 g/dL (12.5-16.3); LYMPHOCYTES # (AUTO) 1.5 K/uL (20.0-40.0); LYMPHOCYTES % (AUTO) 18.1 % (20.5-51.5); MEAN CORPUSCULAR HEMOGLOBIN 28.9 uug (23.8-33.4); MEAN CORPUSCULAR HGB CONC 33 g/dL (32.5-36.3); MEAN CORPUSCULAR VOLUME 86.7 fL (73.0-96.2); MONOCYTES # (AUTO) 0.6 K/uL (2.0-10.0); MONOCYTES % (AUTO) 6.7 % (0.0-11.0); NEUTROPHILS # (AUTO) 5.9 K/uL (1.8-8.9); NEUTROPHILS % (AUTO) 70.6 % (38.5-71.5); PLATELET COUNT (AUTO) 165 K/uL (152-348); RED BLOOD CELL COUNT(AUTO) 3.33 MIL/uL (4.06-5.63); WHITE BLOOD COUNT (AUTO) 8.4 K/uL (3.6-10.2)
--- NOTE | 2017-11-21 07:35 | NUR ---
RECEIVED PT AWAKE, HE'S NON VERBAL AND UNABLE TO STATE HIS NEEDS. , AND PATENT, PT WITH NO S/S OF PAIN OR DISTRESS NOTED , WILL CONTINUE TO MONITOR PT
[2017-11-21 07:36] LABS: ALANINE AMINOTRANSFERASE 42 U/L (16-63); ALKALINE PHOSPHATASE 79 U/L (50-136); AMYLASE 61 U/L (25-115); ASPARTATE AMINOTRANSFERASE 21 U/L (15-37); BILIRUBIN,TOTAL 0.2 mg/dL (0.2-1.0); CARBON DIOXIDE 25 mmol/L (21-32); CHLORIDE 119 mmol/L (98-107); CHOLESTEROL 113 mg/dL (<200); CREATININE 0.8 mg/dL (0.6-1.3); GLUCOSE 88 mg/dL (74-106); HDL CHOLESTEROL 28 mg/dL (40-60); MAGNESIUM 1.9 mg/dL (1.8-2.4); PHOSPHOROUS 2.7 mg/dL (2.5-4.9); POTASSIUM 4.1 mmol/L (3.5-5.1); TOTAL PROTEIN, SERUM 6.5 g/dL (6.4-8.2); TRIGLYCERIDES 98 MG/DL (30-150); UREA NITROGEN, BLOOD 43 mg/dL (7-18)
[2017-11-21] MEDS: DULOXETINE 30 MG CAPSULE.DR GT SCH (08:07)
[2017-11-21] MEDS: TAMSULOSIN HCL 0.4 MG CAP.SR.24H XX SCH (08:07)
[2017-11-21] MEDS: DOCUSATE SODIUM 100 MG/10 ML LIQUID UDC GT SCH (08:07)
[2017-11-21] MEDS: CARBIDOPA/LEVODOPA 25-100MG TABLET GT SCH ×2 (08:07→16:05)
[2017-11-21] MEDS: ASCORBIC ACID 500 MG TABLET GT SCH (08:07)
[2017-11-21] MEDS: ZINC SULFATE 220 MG CAPSULE GT SCH (08:07)
[2017-11-21] MEDS: LACTOBACILLUS RHAMNOSUS GG 1 EACH CAPSULE GT SCH ×2 (08:08→21:42)
[2017-11-21] MEDS: CEFEPIME HCL 1 G in IV DEXTROSE 5% 50 ML IV SCH ×3 (08:30→21:44)
[2017-11-21 09:16] LABS: THYROID STIMULATING HORMONE 0.528 mIU/mL (0.358-3.740)
[2017-11-21 09:34] LABS: LIPASE 214 U/L (73-393)
[2017-11-21] MEDS: MULTIVIT, IRON, MIN NO. 8, FA TABLET GT SCH (10:46)
[2017-11-21] MEDS: FERROUS SULFATE 300 MG/5 ML LIQUID UDC GT SCH ×2 (10:46→18:00)
[2017-11-21 10:52] VITALS: BP 112/68
[2017-11-21 11:00] LABS: BAND % (MANUAL) 8 % (0-10); EOSINOPHILS % (MANUAL) 2 % (0-8); LYMPHOCYTES % (MANUAL) 18 % (20-40); MONOCYTES % (MANUAL) 6 % (2-10); NEUTROPHILS % (MANUAL) 66 % (42-75)
[2017-11-21] MEDS ORDERED: FUROSEMIDE 40 MG/5 ML LIQUID UDC GT ONE (11:00)
[2017-11-21] MEDS: DIABETICSOURCE AC 1000ML LIQUID GT PRN (14:14)
[2017-11-21 15:07] VITALS: BP 103/70
[2017-11-21 19:00] VITALS: BP 107/70
--- NOTE | 2017-11-21 20:25 | NUR ---
Received pt in bed, appearing to be asleep. Easily arousable to verbal stimuli and light touch. No facial indications/cues of pain noted. No acute distress noted. Breathing even and unlabored. All safety and fall precautions maintained. Call light within reach. Diabetisource running at 75 cc/hr w/ no distension noted. Will continue to monitor.
[2017-11-21] MEDS: TERAZOSIN 5 MG CAPSULE GT SCH (21:00)
[2017-11-21] MEDS: QUETIAPINE FUMARATE 25 MG TABLET GT SCH (21:42)
[2017-11-22 04:00] VITALS: BP 101/54
[2017-11-22] MEDS: CEFEPIME HCL 1 G in IV DEXTROSE 5% 50 ML IV SCH ×3 (05:11→21:19)
--- NOTE | 2017-11-22 05:23 | NUR ---
Pt slept comfortably throughout shift. No acute distress noted. No facial indications of pain noted. Breathing even and unlabored. Repositioned q 2 hrs for comfort. All needs well attended to and met accordingly. Kept clean and dry. Good pericare rendered. GT feeding well tolerated. All safety measures and fall precautions maintained. Call light and all personal belongings within reach. Will endorse to day shift. Will continue to monitor.
[2017-11-22] MEDS: ASCORBIC ACID 500 MG TABLET GT SCH (08:24)
[2017-11-22] MEDS: DOCUSATE SODIUM 100 MG/10 ML LIQUID UDC GT SCH (08:24)
[2017-11-22] MEDS: LACTOBACILLUS RHAMNOSUS GG 1 EACH CAPSULE GT SCH ×2 (08:24→20:45)
[2017-11-22] MEDS: CARBIDOPA/LEVODOPA 25-100MG TABLET GT SCH ×2 (08:24→16:31)
[2017-11-22] MEDS: TAMSULOSIN HCL 0.4 MG CAP.SR.24H XX SCH (08:24)
[2017-11-22] MEDS: ZINC SULFATE 220 MG CAPSULE GT SCH (08:24)
[2017-11-22] MEDS: DULOXETINE 30 MG CAPSULE.DR GT SCH (08:24)
[2017-11-22 11:06] VITALS: BP 98/63
[2017-11-22] MEDS: DIABETICSOURCE AC 1000ML LIQUID GT PRN (11:08)
[2017-11-22] MEDS: MULTIVIT, IRON, MIN NO. 8, FA TABLET GT SCH (11:08)
[2017-11-22] MEDS: FERROUS SULFATE 300 MG/5 ML LIQUID UDC GT SCH ×2 (11:08→18:09)
--- NOTE | 2017-11-22 15:00 | NUR ---
pt seen by dr anderson
[2017-11-22 15:14] VITALS: BP 108/60
[2017-11-22 20:37] VITALS: BP 99/63
[2017-11-22] MEDS: TERAZOSIN 5 MG CAPSULE GT SCH (20:46)
[2017-11-22] MEDS: QUETIAPINE FUMARATE 25 MG TABLET GT SCH (20:46)
[2017-11-23 04:27] VITALS: BP 98/61
[2017-11-23] MEDS: CEFEPIME HCL 1 G in IV DEXTROSE 5% 50 ML IV SCH ×3 (05:05→21:45)
--- NOTE | 2017-11-23 06:30 | NUR ---
PATIENT AWAKE AND ALERT AT THIS TIME. UNABLE TO MAKE NEEDS KNOWN. FREQUENT ROUNDING DONE TO ENSURE SAFETY AND TO MEET ALL NEEDS. PT PULLED OUT IV LINE ON THE LEFT ARM THIS MORNING. REMOVED OLD IV AND COVERED WITH GAUZE AND TAPE. CONTINUED IV INFUSION ON IV ACCESS SITE ON THE RIGHT ARM. ELI WAS D/C'D AT 0600 WITHOUT COMPLICATION. NO BLEEDING OR HEMATURIA NOTED. G-TUBE FEEDING STOPPED ORDERED AND WILL RESUME WITH DAYTIME NURSE. G-TUBE IS PATENT AND INTACT AND FLUSHING WELL. WOUND CARE DONE TO SACRRUM, COCCYX, AND BILATERAL HIPS, COVERED WITH MEPILEX DRESSING. PATIENT IS SUPPOSED TO HAVE WOUND DEBRIDEMENT LATER TODAY.
[2017-11-23 06:49] LABS: BASOPHILS % (AUTO) 0.2 % (0.0-2.0); EOSINOPHILS # (AUTO) 0.4 K/uL (0.0-0.7); EOSINOPHILS % (AUTO) 3.7 % (0.0-7.0); HEMATOCRIT 33.5 % (36.7-47.1); HEMOGLOBIN 11.2 g/dL (12.5-16.3); LYMPHOCYTES # (AUTO) 2.4 K/uL (20.0-40.0); LYMPHOCYTES % (AUTO) 24.9 % (20.5-51.5); MEAN CORPUSCULAR HEMOGLOBIN 28.7 uug (23.8-33.4); MEAN CORPUSCULAR HGB CONC 33 g/dL (32.5-36.3); MEAN CORPUSCULAR VOLUME 85.9 fL (73.0-96.2); MONOCYTES # (AUTO) 0.7 K/uL (2.0-10.0); MONOCYTES % (AUTO) 6.8 % (0.0-11.0); NEUTROPHILS # (AUTO) 6.2 K/uL (1.8-8.9); NEUTROPHILS % (AUTO) 64.4 % (38.5-71.5); PLATELET COUNT (AUTO) 215 K/uL (152-348); WHITE BLOOD COUNT (AUTO) 9.6 K/uL (3.6-10.2)
[2017-11-23 07:17] LABS: CARBON DIOXIDE 28 mmol/L (21-32); CHLORIDE 106 mmol/L (98-107); CREATININE 0.9 mg/dL (0.6-1.3); GLUCOSE 109 mg/dL (74-106); MAGNESIUM 1.9 mg/dL (1.8-2.4); PHOSPHOROUS 3.3 mg/dL (2.5-4.9); POTASSIUM 4.2 mmol/L (3.5-5.1); UREA NITROGEN, BLOOD 39 mg/dL (7-18)
[2017-11-23] MEDS: ASCORBIC ACID 500 MG TABLET GT SCH (08:25)
[2017-11-23] MEDS: ZINC SULFATE 220 MG CAPSULE GT SCH (08:25)
[2017-11-23] MEDS: LACTOBACILLUS RHAMNOSUS GG 1 EACH CAPSULE GT SCH ×2 (08:25→20:03)
[2017-11-23] MEDS: CARBIDOPA/LEVODOPA 25-100MG TABLET GT SCH ×2 (08:25→16:06)
[2017-11-23] MEDS: TAMSULOSIN HCL 0.4 MG CAP.SR.24H XX SCH (08:25)
[2017-11-23] MEDS: DULOXETINE 30 MG CAPSULE.DR GT SCH (08:25)
[2017-11-23] MEDS: DOCUSATE SODIUM 100 MG/10 ML LIQUID UDC GT SCH (08:25)
[2017-11-23 09:56] LABS: BAND % (MANUAL) 3 % (0-10); EOSINOPHILS % (MANUAL) 1 % (0-8); LYMPHOCYTES % (MANUAL) 27 % (20-40); MONOCYTES % (MANUAL) 5 % (2-10); MYELOCYTES % 2 % (0-0); NEUTROPHILS % (MANUAL) 62 % (42-75)
[2017-11-23] MEDS: MULTIVIT, IRON, MIN NO. 8, FA TABLET GT SCH (10:04)
[2017-11-23] MEDS: FERROUS SULFATE 300 MG/5 ML LIQUID UDC GT SCH ×2 (10:04→18:14)
[2017-11-23] MEDS: DIABETICSOURCE AC 1000ML LIQUID GT PRN ×2 (10:11→21:10)
--- NOTE | 2017-11-23 11:00 | NUR ---
PT IS ASLEEP WITH NO S/S OF PAIN OR DISTRESS AT PRESENT, ALL NEEDS WERE MET AND ANTICIPATED
[2017-11-23 11:19] VITALS: BP 106/64
--- NOTE | 2017-11-23 13:00 | NUR ---
PT SEEN BY UROLOGIST
[2017-11-23 15:00] VITALS: BP 110/78
[2017-11-23 15:06] VITALS: BP 108/49
--- NOTE | 2017-11-23 18:05 | NUR ---
Pt slept comfortably throughout shift. No acute distress noted. No facial indications of pain noted. Breathing even and unlabored. Repositioned q 2 hrs for comfort. All needs well attended to and met accordingly. Kept clean and dry. GT feeding well tolerated. All safety measures maintained. Call light and all personal belongings within reach. Will continue to monitor
[2017-11-23 20:00] VITALS: BP 92/50
--- NOTE | 2017-11-23 20:00 | NUR ---
RECEIVED PATIENT ASLEEP IN BED. PATIENT IS ALERT TO NAME ONLY. SOME FACIAL GRIMACE NOTED. PATIENT UNABLE TO VERBALIZE IF PAIN OR DISCOMFORT IS PRESENT. PATIENT GIVEN TYLENOL 650MG GT PRN. VSS. NO RESP. DISTRESS NOTED. ON AIR MATTRESS. BED ALARM ON. CALL LIGHT IN REACH. ALL NEEDS ATTENDED. WILL CONTINUE TO MONITOR AND ASSESS.
[2017-11-23] MEDS: TERAZOSIN 5 MG CAPSULE GT SCH (20:04)
[2017-11-23] MEDS: QUETIAPINE FUMARATE 25 MG TABLET GT SCH (20:05)
--- NOTE | 2017-11-23 21:00 | NUR ---
PATIENT ASLEEP. NO S/S OF PAIN OR DISCOMFORT. NO FACIAL GRIMACE NOTED. WILL CONTINUE TO MONITOR.
[2017-11-24 04:00] VITALS: BP 113/82
[2017-11-24] MEDS: CEFEPIME HCL 1 G in IV DEXTROSE 5% 50 ML IV SCH ×3 (05:36→21:42)
--- NOTE | 2017-11-24 06:37 | NUR ---
PATIENT REPOSITIONED TO SIDE. IV INFILTRATED. NEW HEPLOCK STARTED TO RIGHT AC #20 GAUGE. SLEPT WELL. NO FACIAL GRIMACE NOTED. NO S/S OF PAIN OR DISCOMFORT. NO RESP. DISTRESS NOTED. BED ALARM ON. CALL LIGHT IN REACH. ALL NEEDS ATTENDED. WILL CONTINUE TO MONITOR.
--- NOTE | 2017-11-24 07:00 | NUR ---
Received patient on bed asleep. Bilateral upper and lower extremities contracted. No facial grimace noted. GTube intact and patent. Diabetasource x 20 hrs currently off, will turn on at 10 am. No significant residual noted. with IV access on the right AC #20, intact and patent no s/s of infiltration. To collect Stool OB. Multiple wounds, dressings intact. Reposition every 2 hrs to prevent further skin breakdown. Will continue to monitor closely.
[2017-11-24 07:31] LABS: BASOPHILS % (AUTO) 0.3 % (0.0-2.0); EOSINOPHILS # (AUTO) 0.6 K/uL (0.0-0.7); EOSINOPHILS % (AUTO) 5.5 % (0.0-7.0); HEMATOCRIT 34.1 % (36.7-47.1); HEMOGLOBIN 11.4 g/dL (12.5-16.3); LYMPHOCYTES # (AUTO) 2.6 K/uL (20.0-40.0); LYMPHOCYTES % (AUTO) 25.7 % (20.5-51.5); MEAN CORPUSCULAR HGB CONC 33 g/dL (32.5-36.3); MEAN CORPUSCULAR VOLUME 86.9 fL (73.0-96.2); MONOCYTES # (AUTO) 0.6 K/uL (2.0-10.0); MONOCYTES % (AUTO) 5.6 % (0.0-11.0); NEUTROPHILS # (AUTO) 6.4 K/uL (1.8-8.9); NEUTROPHILS % (AUTO) 62.9 % (38.5-71.5); PLATELET COUNT (AUTO) 229 K/uL (152-348); RED BLOOD CELL COUNT(AUTO) 3.93 MIL/uL (4.06-5.63); WHITE BLOOD COUNT (AUTO) 10.2 K/uL (3.6-10.2)
[2017-11-24 07:35] LABS: CARBON DIOXIDE 29 mmol/L (21-32); CHLORIDE 105 mmol/L (98-107); CREATININE 0.9 mg/dL (0.6-1.3); GLUCOSE 111 mg/dL (74-106); MAGNESIUM 2.1 mg/dL (1.8-2.4); PHOSPHOROUS 3.7 mg/dL (2.5-4.9); POTASSIUM 4.6 mmol/L (3.5-5.1); UREA NITROGEN, BLOOD 45 mg/dL (7-18)
[2017-11-24 08:24] LABS: BAND % (MANUAL) 5 % (0-10); EOSINOPHILS % (MANUAL) 6 % (0-8); LYMPHOCYTES % (MANUAL) 25 % (20-40); METAMYELOCYTES % 2 % (0-1); MONOCYTES % (MANUAL) 4 % (2-10); MYELOCYTES % 5 % (0-0); NEUTROPHILS % (MANUAL) 53 % (42-75)
[2017-11-24] MEDS: ZINC SULFATE 220 MG CAPSULE GT SCH (08:45)
[2017-11-24] MEDS: LACTOBACILLUS RHAMNOSUS GG 1 EACH CAPSULE GT SCH ×2 (08:45→21:41)
[2017-11-24] MEDS: DULOXETINE 30 MG CAPSULE.DR GT SCH (08:45)
[2017-11-24] MEDS: CARBIDOPA/LEVODOPA 25-100MG TABLET GT SCH ×2 (08:46→18:33)
[2017-11-24] MEDS: DOCUSATE SODIUM 100 MG/10 ML LIQUID UDC GT SCH (08:46)
[2017-11-24] MEDS: ASCORBIC ACID 500 MG TABLET GT SCH (08:46)
[2017-11-24] MEDS: TAMSULOSIN HCL 0.4 MG CAP.SR.24H XX SCH (08:46)
[2017-11-24] MEDS: MULTIVIT, IRON, MIN NO. 8, FA TABLET GT SCH (10:12)
[2017-11-24] MEDS: FERROUS SULFATE 300 MG/5 ML LIQUID UDC GT SCH ×2 (10:12→18:32)
[2017-11-24 11:32] VITALS: BP 98/58
--- NOTE | 2017-11-24 13:49 | NUR ---
NOTED IV SITE ON THE RIGHT AC #20 WAS OUT, IV CATHETER STILL INTACT, REINSERTED PERIPHERAL IV ON THE RIGHT WRIST #22, USING ASEPTIC TECHNIQUE WITH GOOD VENOUS RETURN OBSERVED. NEW IV SITE INTACT AND PATENT. WILL CONTINUE TO MONITOR CLOSELY
[2017-11-24 16:19] VITALS: BP 103/60
--- NOTE | 2017-11-24 20:00 | NUR ---
RECEIVED PT AWAKE IN BED, HE'S UNABLE TO STATE HIS NEEDS. NO S/S OF PAIN OR DISCOMFORT, NO FACIAL GRIMACING . PT ON G-TUBE WHICH IS PATENT AND INTACT WITH 20 CC RESIDUE, PLACEMENT CHECKED. CALL LIGHT LEFT WITHIN PT'S REACH WILL CONTINUE TO MONITOR PT
[2017-11-24 20:03] VITALS: BP 95/55
[2017-11-24] MEDS: TERAZOSIN 5 MG CAPSULE GT SCH (21:00)
[2017-11-24] MEDS: QUETIAPINE FUMARATE 25 MG TABLET GT SCH (21:41)
[2017-11-25 04:00] VITALS: BP 99/59
[2017-11-25] MEDS: CEFEPIME HCL 1 G in IV DEXTROSE 5% 50 ML IV SCH ×2 (06:12→15:44)
[2017-11-25] MEDS: DULOXETINE 30 MG CAPSULE.DR GT SCH (09:11)
[2017-11-25] MEDS: CARBIDOPA/LEVODOPA 25-100MG TABLET GT SCH ×2 (09:11→15:54)
[2017-11-25] MEDS: DOCUSATE SODIUM 100 MG/10 ML LIQUID UDC GT SCH (09:11)
[2017-11-25] MEDS: LACTOBACILLUS RHAMNOSUS GG 1 EACH CAPSULE GT SCH (09:12)
[2017-11-25] MEDS: ASCORBIC ACID 500 MG TABLET GT SCH (09:12)
[2017-11-25] MEDS: TAMSULOSIN HCL 0.4 MG CAP.SR.24H XX SCH (09:12)
[2017-11-25] MEDS: ZINC SULFATE 220 MG CAPSULE GT SCH (09:12)
[2017-11-25 09:25] LABS: BASOPHILS # (AUTO) 0.1 K/uL (0.0-8.0); BASOPHILS % (AUTO) 0.5 % (0.0-2.0); EOSINOPHILS # (AUTO) 0.6 K/uL (0.0-0.7); EOSINOPHILS % (AUTO) 5.4 % (0.0-7.0); HEMATOCRIT 33.5 % (36.7-47.1); HEMOGLOBIN 11.4 g/dL (12.5-16.3); LYMPHOCYTES # (AUTO) 2.1 K/uL (20.0-40.0); LYMPHOCYTES % (AUTO) 19.8 % (20.5-51.5); MEAN CORPUSCULAR HEMOGLOBIN 28.9 uug (23.8-33.4); MEAN CORPUSCULAR HGB CONC 34 g/dL (32.5-36.3); MEAN CORPUSCULAR VOLUME 85.4 fL (73.0-96.2); MONOCYTES # (AUTO) 0.5 K/uL (2.0-10.0); MONOCYTES % (AUTO) 4.8 % (0.0-11.0); NEUTROPHILS # (AUTO) 7.5 K/uL (1.8-8.9); NEUTROPHILS % (AUTO) 69.5 % (38.5-71.5); PLATELET COUNT (AUTO) 246 K/uL (152-348); RED BLOOD CELL COUNT(AUTO) 3.92 MIL/uL (4.06-5.63); WHITE BLOOD COUNT (AUTO) 10.7 K/uL (3.6-10.2)
[2017-11-25 09:42] LABS: ALANINE AMINOTRANSFERASE 43 U/L (16-63); ALKALINE PHOSPHATASE 85 U/L (50-136); ASPARTATE AMINOTRANSFERASE 21 U/L (15-37); BILIRUBIN,TOTAL 0.3 mg/dL (0.2-1.0); CARBON DIOXIDE 29 mmol/L (21-32); CHLORIDE 105 mmol/L (98-107); CREATININE 0.8 mg/dL (0.6-1.3); GLUCOSE 96 mg/dL (74-106); MAGNESIUM 2.1 mg/dL (1.8-2.4); PHOSPHOROUS 3.3 mg/dL (2.5-4.9); POTASSIUM 4.3 mmol/L (3.5-5.1); TOTAL PROTEIN, SERUM 7.5 g/dL (6.4-8.2); UREA NITROGEN, BLOOD 44 mg/dL (7-18)
[2017-11-25 10:12] LABS: BAND % (MANUAL) 6 % (0-10); EOSINOPHILS % (MANUAL) 6 % (0-8); LYMPHOCYTES % (MANUAL) 20 % (20-40); METAMYELOCYTES % 2 % (0-1); MONOCYTES % (MANUAL) 4 % (2-10); MYELOCYTES % 4 % (0-0); NEUTROPHILS % (MANUAL) 58 % (42-75)
[2017-11-25] MEDS: DIABETICSOURCE AC 1000ML LIQUID GT PRN (10:33)
[2017-11-25] MEDS ORDERED: IOHEXOL 300MG/ML 100 ML INFUS..BTL ONE (10:58)
[2017-11-25] MEDS ORDERED: IV NORMAL SALINE 250 ML IV ONE (10:58)
[2017-11-25] MEDS ORDERED: BARIUM SULFATE 450 ML ORAL.SUSP ONE (10:58)
[2017-11-25 11:36] VITALS: BP 86/53
[2017-11-25 11:45] VITALS: BP 102/59
[2017-11-25] MEDS: FERROUS SULFATE 300 MG/5 ML LIQUID UDC GT SCH ×2 (12:48→18:17)
[2017-11-25] MEDS: MULTIVIT, IRON, MIN NO. 8, FA TABLET GT SCH (12:48)
[2017-11-25 15:16] VITALS: BP 90/51
[2017-11-25] MEDS ORDERED: FLUDROCORTISONE ACETATE 0.1 MG TABLET PO SCH (15:45)
[2017-11-25] MEDS ORDERED: TAMS-3 PO (16:57)
[2017-11-25] MEDS ORDERED: CEFE1VIA3 IV (16:57)
[2017-11-25] MEDS ORDERED: CARB-93 GT (16:57)
[2017-11-25] MEDS ORDERED: TERA5CAP4 GT (16:57)
[2017-11-25] MEDS ORDERED: RIVA10TA GT (17:03)
[2017-11-25] MEDS ORDERED: FLUD0.1T3 PO (17:03)
[2017-11-25 20:25] VITALS: BP 100/62
[2017-11-26 09:02] LABS: *OCCULT BLOOD STOOL NEGATIVE (NEGATIVE)
== END 2017-11-25 22:00 | DRG 853 ==
LOC: ER 02:30 → TELE 03:30 → MED 15:05
PROVIDERS: ADMIT Internal Medicine; ATTEND Internal Medicine
PROC: 0JB70ZZ Excision of Back Subcutaneous Tissue and Fascia, Open Approach (ICD-10-PCS; principal; 2017-11-23)
PROC: 0KBP0ZZ Excision of Left Hip Muscle, Open Approach (ICD-10-PCS; 2017-11-23)
DX: A41.9 Sepsis, unspecified organism (principal); N17.0 Acute kidney failure with tubular necrosis; G93.41 Metabolic encephalopathy; L89.220 Pressure ulcer of left hip, unstageable; L89.153 Pressure ulcer of sacral region, stage 3; E44.0 Moderate protein-calorie malnutrition; G23.1 Progressive supranuclear ophthalmoplegia [Steele-Richardson-Olszewski]; G20 Parkinson's disease; N39.0 Urinary tract infection, site not specified; K92.2 Gastrointestinal hemorrhage, unspecified; R65.20 Severe sepsis without septic shock; B96.5 Pseudomonas (aeruginosa) (mallei) (pseudomallei) as the cause of diseases classified elsewhere; F02.80 Dementia in other diseases classified elsewhere, unspecified severity, without behavioral disturbance, psychotic disturbance, mood disturbance, and anxiety; E78.5 Hyperlipidemia, unspecified; Z74.01 Bed confinement status; Z87.440 Personal history of urinary (tract) infections; Z87.11 Personal history of peptic ulcer disease; Z86.73 Personal history of transient ischemic attack (TIA), and cerebral infarction without residual deficits; Z93.1 Gastrostomy status; R13.10 Dysphagia, unspecified; N40.0 Benign prostatic hyperplasia without lower urinary tract symptoms; R32 Unspecified urinary incontinence; Z68.23 Body mass index [BMI] 23.0-23.9, adult; K40.90 Unilateral inguinal hernia, without obstruction or gangrene, not specified as recurrent; I25.2 Old myocardial infarction; I11.9 Hypertensive heart disease without heart failure; D50.0 Iron deficiency anemia secondary to blood loss (chronic); K56.41 Fecal impaction; E11.9 Type 2 diabetes mellitus without complications; K21.0 Gastro-esophageal reflux disease with esophagitis; M41.9 Scoliosis, unspecified; Z79.899 Other long term (current) drug therapy; Z91.81 History of falling
CPT/HCPCS: 36415; 70030-TC; 70450; 71045; 76770; 82746; 83550; 83605; 83690; 83735; 84100; 84443; 85025; 85730; 87040; 87077; 87086; 93005; A4663; J0692; J2270; J2543; J3370; J7030; J7050; J7060; Q9951; Q9967

== ENCOUNTER 2019-01-20 16:56 | Inpatient (IN) | END 2019-11-04 23:59 | disposition still patient (30) | DRG 189 | DX: J96.11 Chronic respiratory failure with hypoxia (principal); E43 Unspecified severe protein-calorie malnutrition; G93.41 Metabolic encephalopathy; J98.11 Atelectasis; Z68.1 Body mass index [BMI] 19.9 or less, adult; R78.81 Bacteremia; Z16.11 Resistance to penicillins; E87.1 Hypo-osmolality and hyponatremia; Z43.1 Encounter for attention to gastrostomy; E11.22 Type 2 diabetes mellitus with diabetic chronic kidney disease; E78.5 Hyperlipidemia, unspecified; F03.90 Unspecified dementia, unspecified severity, without behavioral disturbance, psychotic disturbance, mood disturbance, and anxiety; F31.9 Bipolar disorder, unspecified; Z93.0 Tracheostomy status; N18.9 Chronic kidney disease, unspecified; N40.0 Benign prostatic hyperplasia without lower urinary tract symptoms; R13.10 Dysphagia, unspecified; I25.2 Old myocardial infarction; I25.10 Atherosclerotic heart disease of native coronary artery without angina pectoris; Z79.4 Long term (current) use of insulin; G31.83 Neurocognitive disorder with Lewy bodies; F02.80 Dementia in other diseases classified elsewhere, unspecified severity, without behavioral disturbance, psychotic disturbance, mood disturbance, and anxiety; K02.9 Dental caries, unspecified; Z99.81 Dependence on supplemental oxygen; B95.62 Methicillin resistant Staphylococcus aureus infection as the cause of diseases classified elsewhere; B96.4 Proteus (mirabilis) (morganii) as the cause of diseases classified elsewhere; I12.9 Hypertensive chronic kidney disease with stage 1 through stage 4 chronic kidney disease, or unspecified chronic kidney disease; Z87.11 Personal history of peptic ulcer disease; F32.9 Major depressive disorder, single episode, unspecified; M24.50 Contracture, unspecified joint; Z79.899 Other long term (current) drug therapy; Z93.1 Gastrostomy status; Z86.14 Personal history of Methicillin resistant Staphylococcus aureus infection; Z87.01 Personal history of pneumonia (recurrent); Z87.440 Personal history of urinary (tract) infections ==

== ENCOUNTER 2020-07-26 14:47 | Outpatient (CLI) | payer MEDICARE, OTHER ==
[~2020-07-26 14:47] MED LIST changes: +ASCO500T10 GT; +CARB-93 GT; -CARB1TAB21 PO; +CEFE1VIA3 IV; +FLUD0.1T3 PO; -MERO1PIG IV; +RIVA10TA GT; +TAMS-3 PO; +TERA5CAP4 GT; +ZINC1CAP2 GT
== END 2020-07-26 23:59 | disposition home or self-care (01) ==
LOC: CT 14:47
PROVIDERS: ATTEND Internal Medicine Pulmonary Disease
DX: K57.30 Diverticulosis of large intestine without perforation or abscess without bleeding (principal); J90 Pleural effusion, not elsewhere classified; J98.11 Atelectasis; I25.10 Atherosclerotic heart disease of native coronary artery without angina pectoris; N13.2 Hydronephrosis with renal and ureteral calculous obstruction; I70.0 Atherosclerosis of aorta; M47.819 Spondylosis without myelopathy or radiculopathy, site unspecified; Z93.1 Gastrostomy status
CPT/HCPCS: 74150

== ENCOUNTER → 2020-11-04 23:59 | Inpatient (IN) | payer MEDICARE, MEDICAID ==
[2019-11-06 17:45] VITALS: BP 138/77
[2019-11-06] MEDS: PROTEIN SUPPLEMENT (PROSTAT) 30 ML LIQUID GT SCH (17:45)
[2019-11-06] MEDS: JEVITY 1.2 1000 ML LIQUID GT PRN (17:46)
[2019-11-06] MEDS: ACETAMINOPHEN 650 MG/20 ML UDC- SA PATIENTS-PAIN ONLY GT PRN (17:49)
--- NOTE | 2019-11-06 19:18 | NUR ---
PVR CHECKED EVERY 6 HOURS. AT 12N results 190 mls. 1800 PVR results 213 mls. Pt voiding clear yellow urine,
[2019-11-06 20:16] VITALS: BP 118/60
[2019-11-06] MEDS: MULTIVIT, IRON, MIN NO. 8, FA TABLET GT SCH (20:39)
[2019-11-06] MEDS: COD LIVER OIL/ZINC OXIDE OINT 113 GM TUBE TP SCH (20:39)
[2019-11-06] MEDS: HYDROGEN PEROXIDE 3% 118 ML BOTTLE TP SCH (20:40)
[2019-11-06] MEDS: HEPARIN SODIUM,PORCINE 5,000 UNITS/ML VIAL SQ SCH (21:36)
[2019-11-06 22:28] VITALS: BP 118/60
--- NOTE | 2019-11-06 23:34 | NUR ---
PVR checked result post voiding 248 cc.
[2019-11-06] MEDS: HYDROCODONE/APAP 10-325 MG TABLET GT PRN (23:44)
[2019-11-07] MEDS: PANTOPRAZOLE ORAL SUSPENSION 40 MG SUSPDR.PKT GT SCH (05:41)
[2019-11-07] MEDS: ACETAMINOPHEN 650 MG/20 ML UDC- SA PATIENTS-PAIN ONLY GT PRN (06:00)
--- NOTE | 2019-11-07 06:49 | NUR ---
Post void residual 290 cc.
[2019-11-07] MEDS: DULOXETINE 30 MG CAPSULE.DR GT SCH (08:17)
[2019-11-07] MEDS: PROTEIN SUPPLEMENT (PROSTAT) 30 ML LIQUID GT SCH ×2 (08:18→17:16)
[2019-11-07] MEDS: FINASTERIDE 5 MG TABLET GT SCH (08:18)
[2019-11-07] MEDS: COD LIVER OIL/ZINC OXIDE OINT 113 GM TUBE TP SCH ×2 (08:18→20:41)
[2019-11-07] MEDS: VITAMINS A AND D OINT TP SCH (08:19)
[2019-11-07] MEDS: HEPARIN SODIUM,PORCINE 5,000 UNITS/ML VIAL SQ SCH ×2 (08:19→21:00)
[2019-11-07] MEDS: HYDROCODONE/APAP 10-325 MG TABLET GT PRN ×2 (09:47→20:41)
[2019-11-07] MEDS: HYDROGEN PEROXIDE 3% 118 ML BOTTLE TP SCH ×2 (09:54→21:32)
[2019-11-07] MEDS: JEVITY 1.2 1000 ML LIQUID GT PRN (11:47)
[2019-11-07] MEDS: NEOMY/BACITRA/POLYMYXIN B OINT UD PACKET TP SCH (13:16)
--- NOTE | 2019-11-07 14:02 | NUR ---
MARIETTA met with patient's Bobby and informed her that the next IDT meeting for the patient has been scheduled for 11/11/2019 at 11am. Bobby stated that she will try to attend.
--- NOTE | 2019-11-07 14:03 | NUR ---
MARIETTA met with patient's Bobby today and obtained signatures on all annual admission paperwork for patient's new chart. The paperwork included: Conditions of Admission, Patient Rights Acknowledgement, An Important Message from Medicare about your Rights, Documentation of Preferred Intensity of Care, Voluntary Prior Express Consent Form, Race and Ethnicity Patient Self-Identification, and the [facility] Agreement. MARIETTA offered Bobby a copy of the signed forms, and Bobby agreed. MARIETTA provided Bobby with copies of all signed forms. For assessment/quarterly information, see patient's previous chart #[id number].
--- NOTE | 2019-11-07 17:00 | NUR ---
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 Donald to call back.
--- NOTE | 2019-11-07 18:41 | NUR ---
12 NOON PVR CHECKED RESULTS 228 ML VOIDING WELL CLEAR URINE. 1800. PVR CHECKED 153 MLS VOIDING CLEAR YELLOWISH URINE.
[2019-11-07 20:27] VITALS: BP 122/74
[2019-11-07] MEDS: MULTIVIT, IRON, MIN NO. 8, FA TABLET GT SCH (20:41)
--- NOTE | 2019-11-08 | NUR ---
PVR post voiding 240 cc.
[2019-11-08] MEDS: JEVITY 1.2 1000 ML LIQUID GT PRN (04:48)
[2019-11-08] MEDS: PANTOPRAZOLE ORAL SUSPENSION 40 MG SUSPDR.PKT GT SCH (05:01)
--- NOTE | 2019-11-08 06:39 | NUR ---
PVR post voiding 116 cc.
[2019-11-08] MEDS: FINASTERIDE 5 MG TABLET GT SCH (09:39)
[2019-11-08] MEDS: PROTEIN SUPPLEMENT (PROSTAT) 30 ML LIQUID GT SCH ×2 (09:39→17:33)
[2019-11-08] MEDS: COD LIVER OIL/ZINC OXIDE OINT 113 GM TUBE TP SCH ×2 (09:39→21:22)
[2019-11-08] MEDS: HYDROGEN PEROXIDE 3% 118 ML BOTTLE TP SCH ×2 (09:40→21:56)
[2019-11-08] MEDS: HEPARIN SODIUM,PORCINE 5,000 UNITS/ML VIAL SQ SCH ×2 (09:42→21:21)
[2019-11-08] MEDS: HYDROCODONE/APAP 10-325 MG TABLET GT PRN ×2 (09:51→21:25)
[2019-11-08] MEDS: VITAMINS A AND D OINT TP SCH (09:52)
[2019-11-08] MEDS: NEOMY/BACITRA/POLYMYXIN B OINT UD PACKET TP SCH (09:52)
[2019-11-08] MEDS: DULOXETINE 30 MG CAPSULE.DR GT SCH (09:53)
[2019-11-08 11:00] VITALS: BP 105/58
--- NOTE | 2019-11-08 12:50 | NUR ---
difficult to scan , patient voided edin urine but uncomfortable, kept moaning and groaning.
[2019-11-08] MEDS: MORPHINE SULFATE 2 MG/1 ML DISP.SYRIN IM PRN (13:56)
--- NOTE | 2019-11-08 14:00 | NUR ---
medicated for generalized pain, uncomfortable, coughing frequently with thick yellow phlegm. awaiting result of pain med
--- NOTE | 2019-11-08 14:30 | NUR ---
in , patient getting comfortable but then started screaming when came in. able to quiet down after 30 minutes in between moaning or screaming.
--- NOTE | 2019-11-08 16:00 | NUR ---
resting well from pain med.
--- NOTE | 2019-11-08 16:30 | NUR ---
Spoke to Dr Mei library circulation assistant for Dr egan ,aware of the sputum culture results,with new orders for ID consult,spoke to Ashwin JUNIOR ,with new orders carried out ,to start on amikacin per pharmacy protocol.
--- NOTE | 2019-11-08 16:50 | NUR ---
bladder scan 153 ml
--- NOTE | 2019-11-08 19:00 | NUR ---
Ann pharmacist spoke to Ashwin JUNIOR,regarding the sensitivity,with new orders noted to dc Amikacin and start Levaquin ivatb,Pt's aware of the new orders.
[2019-11-08] MEDS: levoFLOXacin 500 MG/D5W 500 MG in PREMIXED 1 EACH IV SCH (20:08)
--- NOTE | 2019-11-08 20:30 | NUR ---
started levaquin 500mg iv for cre in sputum, no adverse reaction noted, afebrile, no respiratory distress noted, norco 1 tab given, pt moaning, heplock patent.
[2019-11-08] MEDS: MULTIVIT, IRON, MIN NO. 8, FA TABLET GT SCH (21:20)
[2019-11-08 22:37] VITALS: BP 130/74
--- NOTE | 2019-11-09 | NUR ---
PVR done-333cc of residuals noted
[2019-11-09] MEDS: JEVITY 1.2 1000 ML LIQUID GT PRN (01:06)
[2019-11-09] MEDS: PANTOPRAZOLE ORAL SUSPENSION 40 MG SUSPDR.PKT GT SCH (06:05)
[2019-11-09] MEDS: HYDROGEN PEROXIDE 3% 118 ML BOTTLE TP SCH ×2 (07:46→21:18)
[2019-11-09 08:05] VITALS: BP 115/74
[2019-11-09] MEDS: DULOXETINE 30 MG CAPSULE.DR GT SCH (08:46)
[2019-11-09] MEDS: FINASTERIDE 5 MG TABLET GT SCH (08:46)
[2019-11-09] MEDS: PROTEIN SUPPLEMENT (PROSTAT) 30 ML LIQUID GT SCH ×2 (08:46→17:38)
[2019-11-09] MEDS: COD LIVER OIL/ZINC OXIDE OINT 113 GM TUBE TP SCH ×2 (08:47→21:47)
[2019-11-09] MEDS: HEPARIN SODIUM,PORCINE 5,000 UNITS/ML VIAL SQ SCH ×2 (08:47→21:50)
[2019-11-09] MEDS: VITAMINS A AND D OINT TP SCH (08:47)
[2019-11-09] MEDS: NEOMY/BACITRA/POLYMYXIN B OINT UD PACKET TP SCH (08:47)
--- NOTE | 2019-11-09 10:46 | NUR ---
Pt on IVATB,no adverse reaction noted,iv site intact,no s/s of infiltration noted.
[2019-11-09] MEDS: levoFLOXacin 500 MG/D5W 500 MG in PREMIXED 1 EACH IV SCH (20:00)
--- NOTE | 2019-11-09 21:06 | NUR ---
Afebrile, remains on IV Levaquin for CRE in the sputum, no adverse reactions noted, suctioned with thick yellow secretions, no sob noted, on aspiration precaution, kept clean and comfortable, will continue monitor.
[2019-11-09] MEDS: MULTIVIT, IRON, MIN NO. 8, FA TABLET GT SCH (21:47)
[2019-11-09 22:02] VITALS: BP 130/66
[2019-11-09] MEDS: HYDROCODONE/APAP 10-325 MG TABLET GT PRN (22:41)
[2019-11-10] MEDS: JEVITY 1.2 1000 ML LIQUID GT PRN ×2 (02:06→18:45)
[2019-11-10] MEDS: PANTOPRAZOLE ORAL SUSPENSION 40 MG SUSPDR.PKT GT SCH (05:01)
[2019-11-10] MEDS: HYDROCODONE/APAP 10-325 MG TABLET GT PRN ×2 (05:01→12:00)
[2019-11-10 08:05] VITALS: BP 104/61
[2019-11-10] MEDS: DULOXETINE 30 MG CAPSULE.DR GT SCH (08:26)
[2019-11-10] MEDS: FINASTERIDE 5 MG TABLET GT SCH (08:27)
[2019-11-10] MEDS: PROTEIN SUPPLEMENT (PROSTAT) 30 ML LIQUID GT SCH ×2 (08:28→16:45)
[2019-11-10] MEDS: NEOMY/BACITRA/POLYMYXIN B OINT UD PACKET TP SCH (08:29)
[2019-11-10] MEDS: COD LIVER OIL/ZINC OXIDE OINT 113 GM TUBE TP SCH ×2 (08:29→21:23)
[2019-11-10] MEDS: VITAMINS A AND D OINT TP SCH (08:30)
[2019-11-10] MEDS: HEPARIN SODIUM,PORCINE 5,000 UNITS/ML VIAL SQ SCH ×2 (08:31→21:27)
[2019-11-10] MEDS: HYDROGEN PEROXIDE 3% 118 ML BOTTLE TP SCH ×2 (09:00→21:08)
--- NOTE | 2019-11-10 12:16 | NUR ---
Seen by Ellen Owens notified of pt's condition, patient voiding without difficulty, abdomen soft non-distended, last pvr 158ml, order carried to d/c pvr checks, on ketoconazole 2% on shower days Tuesdays and (dandruff).
--- NOTE | 2019-11-10 13:45 | NUR ---
Patient's Bobby stopped by this SW's office today and informed her that she would not be able to attend the IDT meeting tomorrow, 11/11/2019, due to another commitment. SW asked Bobby if she had any questions/concerns that this SW could relay to the IDT team, and Bobby stated that she had not concerns at this time.
[2019-11-10] MEDS: ONDANSETRON HCL 4 MG TABLET GT PRN (16:46)
[2019-11-10] MEDS: levoFLOXacin 500 MG/D5W 500 MG in PREMIXED 1 EACH IV SCH (20:21)
[2019-11-10 20:31] VITALS: BP 128/75
[2019-11-10] MEDS: MULTIVIT, IRON, MIN NO. 8, FA TABLET GT SCH (21:23)
[2019-11-11] MEDS: PANTOPRAZOLE ORAL SUSPENSION 40 MG SUSPDR.PKT GT SCH (05:45)
[2019-11-11 08:05] VITALS: BP 125/74
[2019-11-11] MEDS: DULOXETINE 30 MG CAPSULE.DR GT SCH (08:42)
[2019-11-11] MEDS: HEPARIN SODIUM,PORCINE 5,000 UNITS/ML VIAL SQ SCH ×2 (08:42→21:06)
[2019-11-11] MEDS: COD LIVER OIL/ZINC OXIDE OINT 113 GM TUBE TP SCH ×2 (08:45→21:01)
[2019-11-11] MEDS: PROTEIN SUPPLEMENT (PROSTAT) 30 ML LIQUID GT SCH ×2 (08:45→16:02)
[2019-11-11] MEDS: KETOCONAZOLE 2% SHAMPOO 120 ML BOTTLE TP SCH (08:45)
[2019-11-11] MEDS: FINASTERIDE 5 MG TABLET GT SCH (08:45)
[2019-11-11] MEDS: VITAMINS A AND D OINT TP SCH (08:46)
[2019-11-11] MEDS: NEOMY/BACITRA/POLYMYXIN B OINT UD PACKET TP SCH (08:46)
[2019-11-11] MEDS: ONDANSETRON HCL 4 MG TABLET GT PRN (08:48)
[2019-11-11] MEDS: HYDROGEN PEROXIDE 3% 118 ML BOTTLE TP SCH ×2 (09:00→21:01)
[2019-11-11] MEDS: JEVITY 1.2 1000 ML LIQUID GT PRN (14:00)
--- NOTE | 2019-11-11 14:21 | NUR ---
Pharmacy Update from Today's 11/11/19 IDT Meeting VS: Temp 99.2 HR 93 BP 125/74 LABS: (from 11/03/19) Wbc 6.5 H/H 12.8/28.6 Plt 236 Na 136 K 4.5 Cl 100 CO2 30 BUN/SCr 48/0.9 BS 101 Ca 9.2 phos 3.7 Mg 2.2 MEDICATION USE REVIEW: > Pt is not any anti-psych or anti-seizure medications > Pt on heparin 5000units q12hr daily for DVT Prophylaxis, CrCl 81.2 ml/min. Last plt 236 > Pt on Cymbalta 30mg daily for pain management, last CrCl 81.2 ml/min > Pt famotidine changed to protonix 40mg daily 11/03 for GI prophylaxis, possible GI upset per MD > Pt continued on finasteride 5mg daily for BPH > PRN MED USAGE: (Dec) Tylenol for pain/temp used x9 Zofran PRN N/V used x3 Artificial Tears used x1 Mylanta PRN used x1 [place] PRN used x3 Morphine PRN used x2 NEW ORDERS NOTED: > Rocephin IV for UTI 11/01-11/05 > Famotidine changed to protonix 40mg daily 11/03 > Mylanta, [place], morphine IV PRN added 11/01 for escalating pain per patient condition (infection, possible GI upset) > Levaquin 500mg IV 11/08 per resp cx Patient was reviewed and discussed in detail with medication changes noted. No issues noted per staff, rx report changes with no further recs at this time while pt being treated with IV abx. Will continue to follow for now
[2019-11-11] MEDS: HYDROCODONE/APAP 10-325 MG TABLET GT PRN (16:01)
--- NOTE | 2019-11-11 16:11 | NUR ---
INTERDISCIPLINARY PLAN OF CARE CONFERENCE was held today. Patient's was unable to attend the meeting, however informed this SW yesterday that she did not have any concerns/questions to relay to the IDT team (see SS notes dated 11/10). Dr. Trujillo and the Interdisciplinary Team reviewed the current plan of care in detail. RN reported on patient's current medical condition, current treatment for CRE, and stated that patient is on isolation precautions for CRE in sputum. See RN IDT conference notes. See also all other disciplines IDT notes and physician's progress notes for additional details.
[2019-11-11 19:59] VITALS: BP 133/73
[2019-11-11] MEDS: levoFLOXacin 500 MG/D5W 500 MG in PREMIXED 1 EACH IV SCH (20:19)
[2019-11-11] MEDS: MULTIVIT, IRON, MIN NO. 8, FA TABLET GT SCH (21:01)
[2019-11-11] MEDS: ACETAMINOPHEN 650 MG/20 ML UDC- SA PATIENTS-PAIN ONLY GT PRN (21:11)
--- NOTE | 2019-11-12 00:49 | NUR ---
continue on levaquin 500mg iv for cre in sputum, no adverse reaction noted, afebrile,no respiratory distress noted.
[2019-11-12] MEDS: HYDROCODONE/APAP 10-325 MG TABLET GT PRN ×2 (01:14→16:02)
[2019-11-12] MEDS: ONDANSETRON HCL 4 MG TABLET GT PRN ×2 (01:14→08:44)
[2019-11-12] MEDS: PANTOPRAZOLE ORAL SUSPENSION 40 MG SUSPDR.PKT GT SCH (05:12)
[2019-11-12 08:00] VITALS: BP 111/72
[2019-11-12] MEDS: DULOXETINE 30 MG CAPSULE.DR GT SCH (08:39)
[2019-11-12] MEDS: FINASTERIDE 5 MG TABLET GT SCH (08:40)
[2019-11-12] MEDS: PROTEIN SUPPLEMENT (PROSTAT) 30 ML LIQUID GT SCH ×2 (08:40→16:03)
[2019-11-12] MEDS: HEPARIN SODIUM,PORCINE 5,000 UNITS/ML VIAL SQ SCH ×3 (08:42→21:29)
[2019-11-12] MEDS: COD LIVER OIL/ZINC OXIDE OINT 113 GM TUBE TP SCH ×2 (08:43→21:30)
[2019-11-12] MEDS: NEOMY/BACITRA/POLYMYXIN B OINT UD PACKET TP SCH (08:43)
[2019-11-12] MEDS: VITAMINS A AND D OINT TP SCH (08:44)
[2019-11-12] MEDS: JEVITY 1.2 1000 ML LIQUID GT PRN (08:50)
[2019-11-12] MEDS: HYDROGEN PEROXIDE 3% 118 ML BOTTLE TP SCH ×2 (09:10→21:03)
--- NOTE | 2019-11-12 09:10 | NUR ---
Seen by Nichole ARMENTA aware pt has tracheal bleeding and swelling on the r elbow,new orders noted and carried out.`
--- NOTE | 2019-11-12 13:01 | NUR ---
New orders from Ashwin Supervisor In [employer] to continue Levaquin ivpb to complete 7 days.orders carried out.
[2019-11-12 19:55] VITALS: BP 106/58
[2019-11-12] MEDS: levoFLOXacin 500 MG/D5W 500 MG in PREMIXED 1 EACH IV SCH (20:22)
[2019-11-12] MEDS: MULTIVIT, IRON, MIN NO. 8, FA TABLET GT SCH (21:29)
[2019-11-13] MEDS: HYDROCODONE/APAP 10-325 MG TABLET GT PRN ×2 (01:30→19:02)
[2019-11-13] MEDS: PANTOPRAZOLE ORAL SUSPENSION 40 MG SUSPDR.PKT GT SCH (06:21)
[2019-11-13] MEDS: DULOXETINE 30 MG CAPSULE.DR GT SCH (08:28)
[2019-11-13] MEDS: FINASTERIDE 5 MG TABLET GT SCH (08:29)
[2019-11-13] MEDS: PROTEIN SUPPLEMENT (PROSTAT) 30 ML LIQUID GT SCH ×2 (08:29→17:00)
[2019-11-13 08:30] VITALS: BP 114/69
[2019-11-13] MEDS: HEPARIN SODIUM,PORCINE 5,000 UNITS/ML VIAL SQ SCH ×2 (08:30→20:19)
[2019-11-13] MEDS: COD LIVER OIL/ZINC OXIDE OINT 113 GM TUBE TP SCH ×2 (08:30→20:19)
[2019-11-13] MEDS: VITAMINS A AND D OINT TP SCH (08:30)
[2019-11-13] MEDS: NEOMY/BACITRA/POLYMYXIN B OINT UD PACKET TP SCH (08:30)
[2019-11-13] MEDS: HYDROGEN PEROXIDE 3% 118 ML BOTTLE TP SCH ×2 (09:00→21:58)
[2019-11-13] MEDS: ACETAMINOPHEN 650 MG/20 ML UDC- SA PATIENTS-PAIN ONLY GT PRN (14:29)
[2019-11-13] MEDS: JEVITY 1.2 1000 ML LIQUID GT PRN (17:14)
[2019-11-13] MEDS: levoFLOXacin 500 MG/D5W 500 MG in PREMIXED 1 EACH IV SCH (20:04)
[2019-11-13] MEDS: MULTIVIT, IRON, MIN NO. 8, FA TABLET GT SCH (20:18)
[2019-11-13 20:49] VITALS: BP 109/73
--- NOTE | 2019-11-13 22:27 | NUR ---
continue on levaquin 500mg iv for cre in sputum, no adverse reaction noted, afebrile, no respiratory distress noted.
[2019-11-14] MEDS: HYDROCODONE/APAP 10-325 MG TABLET GT PRN ×3 (03:30→20:52)
[2019-11-14] MEDS: PANTOPRAZOLE ORAL SUSPENSION 40 MG SUSPDR.PKT GT SCH (05:59)
[2019-11-14 08:03] VITALS: BP 121/58
[2019-11-14] MEDS: PROTEIN SUPPLEMENT (PROSTAT) 30 ML LIQUID GT SCH ×2 (08:26→17:04)
[2019-11-14] MEDS: FINASTERIDE 5 MG TABLET GT SCH (08:26)
[2019-11-14] MEDS: DULOXETINE 30 MG CAPSULE.DR GT SCH (08:26)
[2019-11-14] MEDS: NEOMY/BACITRA/POLYMYXIN B OINT UD PACKET TP SCH (08:27)
[2019-11-14] MEDS: HEPARIN SODIUM,PORCINE 5,000 UNITS/ML VIAL SQ SCH ×2 (08:27→20:49)
[2019-11-14] MEDS: COD LIVER OIL/ZINC OXIDE OINT 113 GM TUBE TP SCH ×2 (08:27→20:50)
[2019-11-14] MEDS: KETOCONAZOLE 2% SHAMPOO 120 ML BOTTLE TP SCH (08:27)
[2019-11-14] MEDS: VITAMINS A AND D OINT TP SCH (08:27)
[2019-11-14] MEDS: HYDROGEN PEROXIDE 3% 118 ML BOTTLE TP SCH ×2 (09:00→21:28)
[2019-11-14] MEDS: JEVITY 1.2 1000 ML LIQUID GT PRN ×2 (12:18→22:24)
[2019-11-14] MEDS: levoFLOXacin 500 MG/D5W 500 MG in PREMIXED 1 EACH IV SCH (19:41)
[2019-11-14 20:01] VITALS: BP 116/60
[2019-11-14] MEDS: MULTIVIT, IRON, MIN NO. 8, FA TABLET GT SCH (20:49)
[2019-11-15] MEDS: MORPHINE SULFATE 2 MG/1 ML DISP.SYRIN IM PRN ×2 (01:08→10:46)
[2019-11-15] MEDS: HYDROCODONE/APAP 10-325 MG TABLET GT PRN (04:55)
[2019-11-15] MEDS: PANTOPRAZOLE ORAL SUSPENSION 40 MG SUSPDR.PKT GT SCH (05:59)
[2019-11-15 06:41] LABS: BASOPHILS % (AUTO) 0.4 % (0.0-2.0); EOSINOPHILS # (AUTO) 0.3 K/uL (0.0-0.7); EOSINOPHILS % (AUTO) 5.2 % (0.0-7.0); HEMATOCRIT 38.3 % (36.7-47.1); HEMOGLOBIN 12.8 g/dL (12.5-16.3); LYMPHOCYTES # (AUTO) 1.5 K/uL (20.0-40.0); LYMPHOCYTES % (AUTO) 22.6 % (20.5-51.5); MEAN CORPUSCULAR HEMOGLOBIN 28.9 uug (23.8-33.4); MEAN CORPUSCULAR HGB CONC 33 g/dL (32.5-36.3); MEAN CORPUSCULAR VOLUME 86.6 fL (73.0-96.2); MONOCYTES # (AUTO) 0.6 K/uL (2.0-10.0); MONOCYTES % (AUTO) 8.5 % (0.0-11.0); NEUTROPHILS # (AUTO) 4.2 K/uL (1.8-8.9); NEUTROPHILS % (AUTO) 63.3 % (38.5-71.5); PLATELET COUNT (AUTO) 185 K/uL (152-348); RED BLOOD CELL COUNT(AUTO) 4.43 MIL/uL (4.06-5.63); WHITE BLOOD COUNT (AUTO) 6.7 K/uL (3.6-10.2)
[2019-11-15 06:57] LABS: CREATININE 0.9 mg/dL (0.6-1.3); MAGNESIUM 2.1 mg/dL (1.8-2.4); PHOSPHOROUS 3.7 mg/dL (2.5-4.9); POTASSIUM 4.7 mmol/L (3.5-5.1)
[2019-11-15] MEDS: DULOXETINE 30 MG CAPSULE.DR GT SCH (09:00)
[2019-11-15] MEDS: HEPARIN SODIUM,PORCINE 5,000 UNITS/ML VIAL SQ SCH ×2 (09:00→20:26)
[2019-11-15] MEDS: HYDROGEN PEROXIDE 3% 118 ML BOTTLE TP SCH ×2 (09:00→20:52)
[2019-11-15] MEDS: NEOMY/BACITRA/POLYMYXIN B OINT UD PACKET TP SCH (09:00)
[2019-11-15] MEDS: COD LIVER OIL/ZINC OXIDE OINT 113 GM TUBE TP SCH ×2 (09:00→20:26)
[2019-11-15] MEDS: FINASTERIDE 5 MG TABLET GT SCH (09:00)
[2019-11-15] MEDS: VITAMINS A AND D OINT TP SCH (09:00)
[2019-11-15] MEDS: PROTEIN SUPPLEMENT (PROSTAT) 30 ML LIQUID GT SCH ×2 (09:00→16:24)
--- NOTE | 2019-11-15 09:38 | NUR ---
SEEN BY DR. JOHNSON AND WITH NNO.
[2019-11-15 11:29] VITALS: BP 120/75
[2019-11-15] MEDS: JEVITY 1.2 1000 ML LIQUID GT PRN (16:25)
[2019-11-15] MEDS: MULTIVIT, IRON, MIN NO. 8, FA TABLET GT SCH (20:26)
[2019-11-15 20:35] VITALS: BP 120/75
[2019-11-15 20:39] VITALS: BP 116/55
[2019-11-16] MEDS: PANTOPRAZOLE ORAL SUSPENSION 40 MG SUSPDR.PKT GT SCH (05:35)
[2019-11-16 08:03] VITALS: BP 122/72
[2019-11-16] MEDS: FINASTERIDE 5 MG TABLET GT SCH (08:34)
[2019-11-16] MEDS: NEOMY/BACITRA/POLYMYXIN B OINT UD PACKET TP SCH (08:34)
[2019-11-16] MEDS: VITAMINS A AND D OINT TP SCH (08:34)
[2019-11-16] MEDS: PROTEIN SUPPLEMENT (PROSTAT) 30 ML LIQUID GT SCH ×2 (08:34→17:05)
[2019-11-16] MEDS: COD LIVER OIL/ZINC OXIDE OINT 113 GM TUBE TP SCH ×2 (08:34→20:21)
[2019-11-16] MEDS: HEPARIN SODIUM,PORCINE 5,000 UNITS/ML VIAL SQ SCH ×2 (08:34→20:20)
[2019-11-16] MEDS: DULOXETINE 30 MG CAPSULE.DR GT SCH (08:34)
[2019-11-16] MEDS: JEVITY 1.2 1000 ML LIQUID GT PRN ×2 (08:35→22:35)
[2019-11-16] MEDS: HYDROGEN PEROXIDE 3% 118 ML BOTTLE TP SCH ×2 (09:58→20:51)
[2019-11-16 19:48] VITALS: BP 122/63
[2019-11-16] MEDS: MULTIVIT, IRON, MIN NO. 8, FA TABLET GT SCH (20:20)
[2019-11-17] MEDS: PANTOPRAZOLE ORAL SUSPENSION 40 MG SUSPDR.PKT GT SCH (05:39)
[2019-11-17 08:05] VITALS: BP 103/58
[2019-11-17] MEDS: PROTEIN SUPPLEMENT (PROSTAT) 30 ML LIQUID GT SCH ×2 (08:14→17:20)
[2019-11-17] MEDS: FINASTERIDE 5 MG TABLET GT SCH (08:14)
[2019-11-17] MEDS: DULOXETINE 30 MG CAPSULE.DR GT SCH (08:14)
[2019-11-17] MEDS: HEPARIN SODIUM,PORCINE 5,000 UNITS/ML VIAL SQ SCH ×2 (08:14→21:44)
[2019-11-17] MEDS: COD LIVER OIL/ZINC OXIDE OINT 113 GM TUBE TP SCH ×2 (08:15→20:40)
[2019-11-17] MEDS: NEOMY/BACITRA/POLYMYXIN B OINT UD PACKET TP SCH (08:15)
[2019-11-17] MEDS: VITAMINS A AND D OINT TP SCH (08:15)
[2019-11-17] MEDS: HYDROGEN PEROXIDE 3% 118 ML BOTTLE TP SCH ×2 (09:00→20:13)
--- NOTE | 2019-11-17 13:00 | NUR ---
SEEN AND EXAMINED BY CLAYTON Barclay AND WITH BETHELO.
[2019-11-17 20:16] VITALS: BP 119/64
[2019-11-17] MEDS: MULTIVIT, IRON, MIN NO. 8, FA TABLET GT SCH (20:40)
[2019-11-18] MEDS: HYDROCODONE/APAP 10-325 MG TABLET GT PRN (01:44)
[2019-11-18] MEDS: JEVITY 1.2 1000 ML LIQUID GT PRN ×2 (03:26→20:50)
[2019-11-18] MEDS: PANTOPRAZOLE ORAL SUSPENSION 40 MG SUSPDR.PKT GT SCH (05:27)
[2019-11-18 08:05] VITALS: BP 129/76
[2019-11-18] MEDS: HYDROGEN PEROXIDE 3% 118 ML BOTTLE TP SCH ×2 (09:00→20:58)
[2019-11-18] MEDS: DULOXETINE 30 MG CAPSULE.DR GT SCH (09:34)
[2019-11-18] MEDS: FINASTERIDE 5 MG TABLET GT SCH (09:34)
[2019-11-18] MEDS: PROTEIN SUPPLEMENT (PROSTAT) 30 ML LIQUID GT SCH ×2 (09:35→17:21)
[2019-11-18] MEDS: HEPARIN SODIUM,PORCINE 5,000 UNITS/ML VIAL SQ SCH ×2 (09:38→20:42)
[2019-11-18] MEDS: COD LIVER OIL/ZINC OXIDE OINT 113 GM TUBE TP SCH ×2 (09:39→20:40)
[2019-11-18] MEDS: KETOCONAZOLE 2% SHAMPOO 120 ML BOTTLE TP SCH (09:39)
[2019-11-18] MEDS: VITAMINS A AND D OINT TP SCH (09:40)
[2019-11-18] MEDS: NEOMY/BACITRA/POLYMYXIN B OINT UD PACKET TP SCH (09:40)
--- NOTE | 2019-11-18 14:41 | NUR ---
Seen and examined by Nichole Norris,with new orders noted.
[2019-11-18 19:43] VITALS: BP 126/77
[2019-11-18] MEDS: MULTIVIT, IRON, MIN NO. 8, FA TABLET GT SCH (20:40)
[2019-11-19] MEDS: PANTOPRAZOLE ORAL SUSPENSION 40 MG SUSPDR.PKT GT SCH (06:13)
[2019-11-19 06:57] LABS: BASOPHILS % (AUTO) 0.5 % (0.0-2.0); EOSINOPHILS # (AUTO) 0.3 K/uL (0.0-0.7); EOSINOPHILS % (AUTO) 4.9 % (0.0-7.0); HEMATOCRIT 40.4 % (36.7-47.1); HEMOGLOBIN 13.4 g/dL (12.5-16.3); LYMPHOCYTES # (AUTO) 1.6 K/uL (20.0-40.0); LYMPHOCYTES % (AUTO) 31.9 % (20.5-51.5); MEAN CORPUSCULAR HEMOGLOBIN 29.2 uug (23.8-33.4); MEAN CORPUSCULAR HGB CONC 33 g/dL (32.5-36.3); MEAN CORPUSCULAR VOLUME 87.8 fL (73.0-96.2); MONOCYTES # (AUTO) 0.3 K/uL (2.0-10.0); MONOCYTES % (AUTO) 6.7 % (0.0-11.0); NEUTROPHILS # (AUTO) 2.9 K/uL (1.8-8.9); PLATELET COUNT (AUTO) 223 K/uL (152-348); WHITE BLOOD COUNT (AUTO) 5.1 K/uL (3.6-10.2)
[2019-11-19 07:22] LABS: BILIRUBIN,TOTAL 0.3 mg/dL (0.2-1.0); CREATININE 0.8 mg/dL (0.6-1.3); POTASSIUM 4.5 mmol/L (3.5-5.1); TOTAL PROTEIN, SERUM 7.5 g/dL (6.4-8.2)
[2019-11-19 08:05] VITALS: BP 142/60
[2019-11-19] MEDS: PROTEIN SUPPLEMENT (PROSTAT) 30 ML LIQUID GT SCH ×2 (08:16→17:09)
[2019-11-19] MEDS: FINASTERIDE 5 MG TABLET GT SCH (08:16)
[2019-11-19] MEDS: DULOXETINE 30 MG CAPSULE.DR GT SCH (08:16)
[2019-11-19] MEDS: COD LIVER OIL/ZINC OXIDE OINT 113 GM TUBE TP SCH ×2 (08:17→20:43)
[2019-11-19] MEDS: HEPARIN SODIUM,PORCINE 5,000 UNITS/ML VIAL SQ SCH ×2 (08:17→20:55)
[2019-11-19] MEDS: NEOMY/BACITRA/POLYMYXIN B OINT UD PACKET TP SCH (08:17)
[2019-11-19] MEDS: VITAMINS A AND D OINT TP SCH (08:17)
[2019-11-19] MEDS: HYDROGEN PEROXIDE 3% 118 ML BOTTLE TP SCH ×2 (08:42→21:08)
[2019-11-19 20:23] VITALS: BP 143/80
[2019-11-19] MEDS: MULTIVIT, IRON, MIN NO. 8, FA TABLET GT SCH (20:43)
[2019-11-20] MEDS: JEVITY 1.2 1000 ML LIQUID GT PRN (03:56)
[2019-11-20] MEDS: PANTOPRAZOLE ORAL SUSPENSION 40 MG SUSPDR.PKT GT SCH (06:09)
[2019-11-20 08:00] VITALS: BP 117/70
[2019-11-20] MEDS: FINASTERIDE 5 MG TABLET GT SCH (08:35)
[2019-11-20] MEDS: PROTEIN SUPPLEMENT (PROSTAT) 30 ML LIQUID GT SCH ×2 (08:35→17:31)
[2019-11-20] MEDS: DULOXETINE 30 MG CAPSULE.DR GT SCH (08:35)
[2019-11-20] MEDS: COD LIVER OIL/ZINC OXIDE OINT 113 GM TUBE TP SCH ×2 (08:36→21:02)
[2019-11-20] MEDS: VITAMINS A AND D OINT TP SCH (08:36)
[2019-11-20] MEDS: NEOMY/BACITRA/POLYMYXIN B OINT UD PACKET TP SCH (08:36)
[2019-11-20] MEDS: HEPARIN SODIUM,PORCINE 5,000 UNITS/ML VIAL SQ SCH ×2 (08:36→21:01)
[2019-11-20] MEDS: HYDROGEN PEROXIDE 3% 118 ML BOTTLE TP SCH ×2 (09:30→21:30)
[2019-11-20] MEDS: HYDROCODONE/APAP 10-325 MG TABLET GT PRN (16:33)
[2019-11-20 20:28] VITALS: BP 120/60
[2019-11-20] MEDS: MULTIVIT, IRON, MIN NO. 8, FA TABLET GT SCH (20:57)
[2019-11-21] MEDS: JEVITY 1.2 1000 ML LIQUID GT PRN ×2 (01:37→17:34)
[2019-11-21] MEDS: PANTOPRAZOLE ORAL SUSPENSION 40 MG SUSPDR.PKT GT SCH (05:58)
[2019-11-21 08:00] VITALS: BP 126/65
[2019-11-21] MEDS: FINASTERIDE 5 MG TABLET GT SCH (08:57)
[2019-11-21] MEDS: DULOXETINE 30 MG CAPSULE.DR GT SCH (08:57)
[2019-11-21] MEDS: PROTEIN SUPPLEMENT (PROSTAT) 30 ML LIQUID GT SCH ×2 (08:57→17:34)
[2019-11-21] MEDS: HEPARIN SODIUM,PORCINE 5,000 UNITS/ML VIAL SQ SCH ×2 (08:59→21:43)
[2019-11-21] MEDS: VITAMINS A AND D OINT TP SCH (09:00)
[2019-11-21] MEDS: KETOCONAZOLE 2% SHAMPOO 120 ML BOTTLE TP SCH (09:00)
[2019-11-21] MEDS: COD LIVER OIL/ZINC OXIDE OINT 113 GM TUBE TP SCH ×2 (09:00→21:39)
[2019-11-21] MEDS: HYDROGEN PEROXIDE 3% 118 ML BOTTLE TP SCH ×2 (09:20→21:24)
--- NOTE | 2019-11-21 18:06 | NUR ---
11/19/19 sputum, CRE not present, Ashwin aLssiter notified, new order carried out to d/c contact isolation for CRE in sputum.
[2019-11-21 20:16] VITALS: BP 127/72
[2019-11-21] MEDS: MULTIVIT, IRON, MIN NO. 8, FA TABLET GT SCH (21:39)
[2019-11-22] MEDS: PANTOPRAZOLE ORAL SUSPENSION 40 MG SUSPDR.PKT GT SCH (05:08)
[2019-11-22] MEDS: HYDROGEN PEROXIDE 3% 118 ML BOTTLE TP SCH ×2 (08:05→21:12)
[2019-11-22 08:07] VITALS: BP 119/54
[2019-11-22] MEDS: FINASTERIDE 5 MG TABLET GT SCH (08:55)
[2019-11-22] MEDS: DULOXETINE 30 MG CAPSULE.DR GT SCH (08:55)
[2019-11-22] MEDS: PROTEIN SUPPLEMENT (PROSTAT) 30 ML LIQUID GT SCH ×2 (08:57→17:19)
[2019-11-22] MEDS: HEPARIN SODIUM,PORCINE 5,000 UNITS/ML VIAL SQ SCH ×2 (08:58→21:19)
[2019-11-22] MEDS: VITAMINS A AND D OINT TP SCH (08:58)
[2019-11-22] MEDS: COD LIVER OIL/ZINC OXIDE OINT 113 GM TUBE TP SCH ×2 (08:58→21:12)
[2019-11-22] MEDS: JEVITY 1.2 1000 ML LIQUID GT PRN (12:47)
[2019-11-22 20:10] VITALS: BP 119/75
[2019-11-22] MEDS: MULTIVIT, IRON, MIN NO. 8, FA TABLET GT SCH (21:12)
[2019-11-23] MEDS: JEVITY 1.2 1000 ML LIQUID GT PRN ×2 (00:39→14:09)
[2019-11-23] MEDS: HYDROCODONE/APAP 10-325 MG TABLET GT PRN ×2 (01:13→14:09)
[2019-11-23] MEDS: PANTOPRAZOLE ORAL SUSPENSION 40 MG SUSPDR.PKT GT SCH (05:07)
[2019-11-23 08:05] VITALS: BP 132/67
[2019-11-23] MEDS: PROTEIN SUPPLEMENT (PROSTAT) 30 ML LIQUID GT SCH ×2 (09:05→17:50)
[2019-11-23] MEDS: DULOXETINE 30 MG CAPSULE.DR GT SCH (09:05)
[2019-11-23] MEDS: FINASTERIDE 5 MG TABLET GT SCH (09:05)
[2019-11-23] MEDS: HEPARIN SODIUM,PORCINE 5,000 UNITS/ML VIAL SQ SCH ×2 (09:05→21:00)
[2019-11-23] MEDS: VITAMINS A AND D OINT TP SCH (09:06)
[2019-11-23] MEDS: COD LIVER OIL/ZINC OXIDE OINT 113 GM TUBE TP SCH ×2 (09:06→21:00)
[2019-11-23] MEDS: HYDROGEN PEROXIDE 3% 118 ML BOTTLE TP SCH ×2 (09:10→20:54)
[2019-11-23 20:07] VITALS: BP 146/74
[2019-11-23] MEDS: MULTIVIT, IRON, MIN NO. 8, FA TABLET GT SCH (21:00)
[2019-11-24] MEDS: JEVITY 1.2 1000 ML LIQUID GT PRN ×2 (04:24→18:02)
[2019-11-24] MEDS: PANTOPRAZOLE ORAL SUSPENSION 40 MG SUSPDR.PKT GT SCH (06:05)
[2019-11-24 08:00] VITALS: BP 115/61
[2019-11-24] MEDS: DULOXETINE 30 MG CAPSULE.DR GT SCH (08:41)
[2019-11-24] MEDS: FINASTERIDE 5 MG TABLET GT SCH (08:42)
[2019-11-24] MEDS: PROTEIN SUPPLEMENT (PROSTAT) 30 ML LIQUID GT SCH ×2 (08:42→17:17)
[2019-11-24] MEDS: HEPARIN SODIUM,PORCINE 5,000 UNITS/ML VIAL SQ SCH ×2 (08:43→21:59)
[2019-11-24] MEDS: COD LIVER OIL/ZINC OXIDE OINT 113 GM TUBE TP SCH ×2 (08:43→21:00)
[2019-11-24] MEDS: VITAMINS A AND D OINT TP SCH (09:00)
[2019-11-24] MEDS: HYDROGEN PEROXIDE 3% 118 ML BOTTLE TP SCH ×2 (09:00→21:07)
--- NOTE | 2019-11-24 11:16 | NUR ---
SEEN BY KATHI MCKEON WITH NO NEW ORDER.
--- NOTE | 2019-11-24 12:05 | NUR ---
SEEN BY DR ANDREW WITH NEW ORDERS NOTED CARRIED OUT.
[2019-11-24 19:50] VITALS: BP 111/67
[2019-11-24] MEDS: MULTIVIT, IRON, MIN NO. 8, FA TABLET GT SCH (21:00)
[2019-11-25] MEDS: PANTOPRAZOLE ORAL SUSPENSION 40 MG SUSPDR.PKT GT SCH (05:03)
[2019-11-25 07:45] LABS: BASOPHILS % (AUTO) 0.5 % (0.0-2.0); EOSINOPHILS # (AUTO) 0.4 K/uL (0.0-0.7); EOSINOPHILS % (AUTO) 5.5 % (0.0-7.0); HEMATOCRIT 39.6 % (36.7-47.1); HEMOGLOBIN 13.3 g/dL (12.5-16.3); LYMPHOCYTES # (AUTO) 1.8 K/uL (20.0-40.0); LYMPHOCYTES % (AUTO) 27.5 % (20.5-51.5); MEAN CORPUSCULAR HEMOGLOBIN 29.3 uug (23.8-33.4); MEAN CORPUSCULAR HGB CONC 34 g/dL (32.5-36.3); MEAN CORPUSCULAR VOLUME 87.3 fL (73.0-96.2); MONOCYTES # (AUTO) 0.4 K/uL (2.0-10.0); MONOCYTES % (AUTO) 6.6 % (0.0-11.0); NEUTROPHILS # (AUTO) 3.9 K/uL (1.8-8.9); NEUTROPHILS % (AUTO) 59.9 % (38.5-71.5); PLATELET COUNT (AUTO) 212 K/uL (152-348); RED BLOOD CELL COUNT(AUTO) 4.54 MIL/uL (4.06-5.63); WHITE BLOOD COUNT (AUTO) 6.5 K/uL (3.6-10.2)
[2019-11-25 07:59] LABS: CREATININE 0.8 mg/dL (0.6-1.3); MAGNESIUM 1.9 mg/dL (1.8-2.4); PHOSPHOROUS 4.2 mg/dL (2.5-4.9); POTASSIUM 4.8 mmol/L (3.5-5.1)
[2019-11-25 08:00] VITALS: BP 117/60
[2019-11-25] MEDS: FINASTERIDE 5 MG TABLET GT SCH (08:06)
[2019-11-25] MEDS: DULOXETINE 30 MG CAPSULE.DR GT SCH (08:06)
[2019-11-25] MEDS: HEPARIN SODIUM,PORCINE 5,000 UNITS/ML VIAL SQ SCH ×2 (08:07→20:45)
[2019-11-25] MEDS: PROTEIN SUPPLEMENT (PROSTAT) 30 ML LIQUID GT SCH ×2 (08:07→17:56)
[2019-11-25] MEDS: KETOCONAZOLE 2% SHAMPOO 120 ML BOTTLE TP SCH (08:07)
[2019-11-25] MEDS: VITAMINS A AND D OINT TP SCH (08:07)
[2019-11-25] MEDS: COD LIVER OIL/ZINC OXIDE OINT 113 GM TUBE TP SCH ×2 (08:07→20:43)
[2019-11-25] MEDS: HYDROGEN PEROXIDE 3% 118 ML BOTTLE TP SCH ×2 (09:00→21:11)
[2019-11-25 19:36] VITALS: BP 122/73
[2019-11-25] MEDS: ONDANSETRON HCL 4 MG TABLET GT PRN (20:43)
[2019-11-25] MEDS: MULTIVIT, IRON, MIN NO. 8, FA TABLET GT SCH (20:43)
[2019-11-26] MEDS: JEVITY 1.2 1000 ML LIQUID GT PRN ×2 (04:20→22:00)
[2019-11-26] MEDS: PANTOPRAZOLE ORAL SUSPENSION 40 MG SUSPDR.PKT GT SCH (05:55)
[2019-11-26 08:00] VITALS: BP 150/77
[2019-11-26] MEDS: HYDROGEN PEROXIDE 3% 118 ML BOTTLE TP SCH ×2 (09:14→20:57)
[2019-11-26] MEDS: DULOXETINE 30 MG CAPSULE.DR GT SCH (09:30)
[2019-11-26] MEDS: COD LIVER OIL/ZINC OXIDE OINT 113 GM TUBE TP SCH ×2 (09:31→21:24)
[2019-11-26] MEDS: FINASTERIDE 5 MG TABLET GT SCH (09:31)
[2019-11-26] MEDS: PROTEIN SUPPLEMENT (PROSTAT) 30 ML LIQUID GT SCH ×2 (09:31→17:38)
[2019-11-26] MEDS: VITAMINS A AND D OINT TP SCH (09:31)
[2019-11-26] MEDS: HEPARIN SODIUM,PORCINE 5,000 UNITS/ML VIAL SQ SCH (09:35)
--- NOTE | 2019-11-26 17:00 | NUR ---
DR Trujillo was aware pt has tracheal bleeding,new orders noted.
[2019-11-26 19:53] VITALS: BP 132/66
[2019-11-26] MEDS: MULTIVIT, IRON, MIN NO. 8, FA TABLET GT SCH (21:24)
[2019-11-26] MEDS: ACETAMINOPHEN 650 MG/20 ML UDC- SA PATIENTS-PAIN ONLY GT PRN (21:28)
[2019-11-27] MEDS: PANTOPRAZOLE ORAL SUSPENSION 40 MG SUSPDR.PKT GT SCH (06:29)
[2019-11-27 07:06] LABS: BASOPHILS % (AUTO) 0.5 % (0.0-2.0); EOSINOPHILS # (AUTO) 0.4 K/uL (0.0-0.7); EOSINOPHILS % (AUTO) 6.1 % (0.0-7.0); HEMATOCRIT 39.8 % (36.7-47.1); HEMOGLOBIN 13.6 g/dL (12.5-16.3); LYMPHOCYTES # (AUTO) 1.9 K/uL (20.0-40.0); LYMPHOCYTES % (AUTO) 28.8 % (20.5-51.5); MEAN CORPUSCULAR HEMOGLOBIN 29.6 uug (23.8-33.4); MEAN CORPUSCULAR HGB CONC 34 g/dL (32.5-36.3); MONOCYTES # (AUTO) 0.5 K/uL (2.0-10.0); MONOCYTES % (AUTO) 7.5 % (0.0-11.0); NEUTROPHILS # (AUTO) 3.7 K/uL (1.8-8.9); NEUTROPHILS % (AUTO) 57.1 % (38.5-71.5); PLATELET COUNT (AUTO) 216 K/uL (152-348); RED BLOOD CELL COUNT(AUTO) 4.57 MIL/uL (4.06-5.63); WHITE BLOOD COUNT (AUTO) 6.5 K/uL (3.6-10.2)
[2019-11-27 08:00] VITALS: BP 120/66
[2019-11-27] MEDS: HYDROGEN PEROXIDE 3% 118 ML BOTTLE TP SCH ×2 (08:46→21:11)
[2019-11-27] MEDS: DULOXETINE 30 MG CAPSULE.DR GT SCH (08:58)
[2019-11-27] MEDS: FINASTERIDE 5 MG TABLET GT SCH (08:59)
[2019-11-27] MEDS: PROTEIN SUPPLEMENT (PROSTAT) 30 ML LIQUID GT SCH ×2 (08:59→17:57)
[2019-11-27] MEDS: COD LIVER OIL/ZINC OXIDE OINT 113 GM TUBE TP SCH ×2 (08:59→21:34)
[2019-11-27] MEDS: VITAMINS A AND D OINT TP SCH (08:59)
--- NOTE | 2019-11-27 16:26 | NUR ---
NO TRACHEAL BLEEDING OBSERVED ALL DAY ,CLAYTON Barclay WAS AWARE AND WITH NEW ORDER TO RESUME HEPARIN AND ORDER WAS CARRIED OUT.
[2019-11-27 20:43] VITALS: BP 127/70
[2019-11-27] MEDS: HEPARIN SODIUM,PORCINE 5,000 UNITS/ML VIAL SQ SCH (21:30)
[2019-11-27] MEDS: MULTIVIT, IRON, MIN NO. 8, FA TABLET GT SCH (21:34)
[2019-11-28] MEDS: JEVITY 1.2 1000 ML LIQUID GT PRN ×2 (04:19→18:35)
[2019-11-28] MEDS: PANTOPRAZOLE ORAL SUSPENSION 40 MG SUSPDR.PKT GT SCH (05:28)
[2019-11-28] MEDS: DULOXETINE 30 MG CAPSULE.DR GT SCH (08:09)
[2019-11-28] MEDS: FINASTERIDE 5 MG TABLET GT SCH (08:09)
[2019-11-28] MEDS: COD LIVER OIL/ZINC OXIDE OINT 113 GM TUBE TP SCH ×2 (08:11→20:57)
[2019-11-28] MEDS: PROTEIN SUPPLEMENT (PROSTAT) 30 ML LIQUID GT SCH ×2 (08:11→16:02)
[2019-11-28] MEDS: VITAMINS A AND D OINT TP SCH (08:12)
[2019-11-28] MEDS: KETOCONAZOLE 2% SHAMPOO 120 ML BOTTLE TP SCH (08:12)
[2019-11-28] MEDS: HEPARIN SODIUM,PORCINE 5,000 UNITS/ML VIAL SQ SCH ×2 (08:15→21:05)
[2019-11-28] MEDS: HYDROGEN PEROXIDE 3% 118 ML BOTTLE TP SCH ×2 (09:00→21:06)
--- NOTE | 2019-11-28 09:28 | NUR ---
Received pt. in bed, non-communicative. In no distress. All due medications administered as ordered. Kept pt. clean and dry. Turned and repositioned for comfort. Noted with lower and upper extremity contraction. Skin care rendered. Safety measures in place, all alarms working. Will continue to monitor accordingly.
[2019-11-28] MEDS: MULTIVIT, IRON, MIN NO. 8, FA TABLET GT SCH (20:57)
[2019-11-29] MEDS: PANTOPRAZOLE ORAL SUSPENSION 40 MG SUSPDR.PKT GT SCH (05:48)
[2019-11-29] MEDS: DULOXETINE 30 MG CAPSULE.DR GT SCH (08:29)
[2019-11-29] MEDS: FINASTERIDE 5 MG TABLET GT SCH (08:29)
[2019-11-29] MEDS: PROTEIN SUPPLEMENT (PROSTAT) 30 ML LIQUID GT SCH ×2 (08:29→16:54)
[2019-11-29] MEDS: HEPARIN SODIUM,PORCINE 5,000 UNITS/ML VIAL SQ SCH ×2 (08:30→20:33)
[2019-11-29] MEDS: COD LIVER OIL/ZINC OXIDE OINT 113 GM TUBE TP SCH ×2 (08:30→20:32)
[2019-11-29] MEDS: VITAMINS A AND D OINT TP SCH (08:30)
[2019-11-29] MEDS: HYDROGEN PEROXIDE 3% 118 ML BOTTLE TP SCH ×2 (10:50→21:10)
[2019-11-29 11:11] VITALS: BP 128/70
[2019-11-29] MEDS: MULTIVIT, IRON, MIN NO. 8, FA TABLET GT SCH (20:32)
[2019-11-29 20:50] VITALS: BP 133/78
[2019-11-30] MEDS: JEVITY 1.2 1000 ML LIQUID GT PRN (01:35)
[2019-11-30] MEDS: PANTOPRAZOLE ORAL SUSPENSION 40 MG SUSPDR.PKT GT SCH (05:34)
[2019-11-30 08:00] VITALS: BP 115/76
[2019-11-30] MEDS: DULOXETINE 30 MG CAPSULE.DR GT SCH (08:00)
[2019-11-30] MEDS: FINASTERIDE 5 MG TABLET GT SCH (08:01)
[2019-11-30] MEDS: PROTEIN SUPPLEMENT (PROSTAT) 30 ML LIQUID GT SCH ×2 (08:01→17:01)
[2019-11-30] MEDS: COD LIVER OIL/ZINC OXIDE OINT 113 GM TUBE TP SCH ×2 (08:02→20:30)
[2019-11-30] MEDS: HEPARIN SODIUM,PORCINE 5,000 UNITS/ML VIAL SQ SCH ×2 (08:02→21:00)
[2019-11-30] MEDS: HYDROGEN PEROXIDE 3% 118 ML BOTTLE TP SCH ×2 (08:08→20:30)
[2019-11-30] MEDS: VITAMINS A AND D OINT TP SCH (09:00)
[2019-11-30] MEDS: ACETAMINOPHEN 650 MG/20 ML UDC- SA PATIENTS-PAIN ONLY GT PRN (17:04)
[2019-11-30 20:17] VITALS: BP 117/77
[2019-11-30] MEDS: MULTIVIT, IRON, MIN NO. 8, FA TABLET GT SCH (20:30)
[2019-12-01] MEDS: HYDROCODONE/APAP 10-325 MG TABLET GT PRN (04:46)
[2019-12-01] MEDS: PANTOPRAZOLE ORAL SUSPENSION 40 MG SUSPDR.PKT GT SCH (05:04)
[2019-12-01 08:00] VITALS: BP 126/70
[2019-12-01] MEDS: DULOXETINE 30 MG CAPSULE.DR GT SCH (08:19)
[2019-12-01] MEDS: PROTEIN SUPPLEMENT (PROSTAT) 30 ML LIQUID GT SCH ×2 (08:27→17:55)
[2019-12-01] MEDS: FINASTERIDE 5 MG TABLET GT SCH (08:27)
[2019-12-01] MEDS: COD LIVER OIL/ZINC OXIDE OINT 113 GM TUBE TP SCH ×2 (08:28→21:11)
[2019-12-01] MEDS: VITAMINS A AND D OINT TP SCH (08:28)
[2019-12-01] MEDS: HEPARIN SODIUM,PORCINE 5,000 UNITS/ML VIAL SQ SCH ×2 (08:28→21:00)
[2019-12-01] MEDS: HYDROGEN PEROXIDE 3% 118 ML BOTTLE TP SCH ×2 (09:00→21:51)
[2019-12-01] MEDS: POLYVINYL ALCOHOL OPHT DROPS 15 ML BOTTLE EACHEYE PRN (11:59)
--- NOTE | 2019-12-01 13:00 | NUR ---
SEEN BY CLAYTON Barclay AND WITH NNO.
[2019-12-01] MEDS: JEVITY 1.2 1000 ML LIQUID GT PRN (16:04)
[2019-12-01 20:10] VITALS: BP 140/62
[2019-12-01] MEDS: MULTIVIT, IRON, MIN NO. 8, FA TABLET GT SCH (21:26)
[2019-12-02] MEDS: PANTOPRAZOLE ORAL SUSPENSION 40 MG SUSPDR.PKT GT SCH (06:20)
[2019-12-02] MEDS: JEVITY 1.2 1000 ML LIQUID GT PRN ×2 (06:20→23:00)
[2019-12-02 08:05] VITALS: BP 137/62
[2019-12-02] MEDS: DULOXETINE 30 MG CAPSULE.DR GT SCH (08:40)
[2019-12-02] MEDS: HEPARIN SODIUM,PORCINE 5,000 UNITS/ML VIAL SQ SCH ×2 (08:41→20:45)
[2019-12-02] MEDS: VITAMINS A AND D OINT TP SCH (08:43)
[2019-12-02] MEDS: PROTEIN SUPPLEMENT (PROSTAT) 30 ML LIQUID GT SCH ×2 (08:43→17:33)
[2019-12-02] MEDS: COD LIVER OIL/ZINC OXIDE OINT 113 GM TUBE TP SCH ×2 (08:43→20:45)
[2019-12-02] MEDS: KETOCONAZOLE 2% SHAMPOO 120 ML BOTTLE TP SCH (08:43)
[2019-12-02] MEDS: FINASTERIDE 5 MG TABLET GT SCH (08:43)
[2019-12-02] MEDS: HYDROGEN PEROXIDE 3% 118 ML BOTTLE TP SCH ×2 (09:00→21:05)
--- NOTE | 2019-12-02 10:56 | NUR ---
MARIETTA met with patient's Bobby this morning, and checked in with her to see how she was doing. Bobby stated doing well. SW asked if there were any concerns or questions she had, and Bobby stated not having any concerns at this time. Bobby was pleasant, cooperative, and stated being happy with the ongoing care that the patient has been receiving. MARIETTA informed Bobby that the next IDT meeting for the patient has been scheduled for 12/09/2019 at 11am. Bobby stated she will try to see if she can attend.
--- NOTE | 2019-12-02 11:00 | NUR ---
Seen and examined by Nichole Norris,no new orders.
[2019-12-02 20:06] VITALS: BP 129/65
[2019-12-02] MEDS: MULTIVIT, IRON, MIN NO. 8, FA TABLET GT SCH (20:44)
[2019-12-03] MEDS: PANTOPRAZOLE ORAL SUSPENSION 40 MG SUSPDR.PKT GT SCH (06:19)
[2019-12-03 08:05] VITALS: BP 130/70
[2019-12-03] MEDS: HYDROGEN PEROXIDE 3% 118 ML BOTTLE TP SCH ×2 (08:13→21:04)
[2019-12-03] MEDS: FINASTERIDE 5 MG TABLET GT SCH (08:52)
[2019-12-03] MEDS: PROTEIN SUPPLEMENT (PROSTAT) 30 ML LIQUID GT SCH ×2 (08:52→17:48)
[2019-12-03] MEDS: DULOXETINE 30 MG CAPSULE.DR GT SCH (08:52)
[2019-12-03] MEDS: COD LIVER OIL/ZINC OXIDE OINT 113 GM TUBE TP SCH ×2 (08:53→20:46)
[2019-12-03] MEDS: VITAMINS A AND D OINT TP SCH (08:53)
[2019-12-03] MEDS: HEPARIN SODIUM,PORCINE 5,000 UNITS/ML VIAL SQ SCH ×2 (08:56→20:46)
[2019-12-03 19:52] VITALS: BP 119/73
[2019-12-03] MEDS: MULTIVIT, IRON, MIN NO. 8, FA TABLET GT SCH (20:42)
[2019-12-04] MEDS: PANTOPRAZOLE ORAL SUSPENSION 40 MG SUSPDR.PKT GT SCH (06:26)
[2019-12-04 08:05] VITALS: BP 132/70
[2019-12-04] MEDS: FINASTERIDE 5 MG TABLET GT SCH (08:56)
[2019-12-04] MEDS: DULOXETINE 30 MG CAPSULE.DR GT SCH (08:56)
[2019-12-04] MEDS: PROTEIN SUPPLEMENT (PROSTAT) 30 ML LIQUID GT SCH ×2 (08:57→17:53)
[2019-12-04] MEDS: COD LIVER OIL/ZINC OXIDE OINT 113 GM TUBE TP SCH ×2 (08:58→20:07)
[2019-12-04] MEDS: HEPARIN SODIUM,PORCINE 5,000 UNITS/ML VIAL SQ SCH (08:58)
[2019-12-04] MEDS: VITAMINS A AND D OINT TP SCH (08:58)
[2019-12-04] MEDS: HYDROGEN PEROXIDE 3% 118 ML BOTTLE TP SCH ×2 (09:00→20:08)
--- NOTE | 2019-12-04 11:00 | NUR ---
NOTED WITH BLEEDING IN TRACH AND FROM NOSE. TRACH BLEEDING STOP WITH SALINE LAVAGE, NOSE BLEEDING WAS MINIMAL AND STOP BY IT SELF. NOTIFIED DR. EVANS, WITH NEW ORDERS, NOTED AND CARRIED OUT.
[2019-12-04] MEDS: JEVITY 1.2 1000 ML LIQUID GT PRN (11:33)
[2019-12-04 19:51] VITALS: BP 117/64
[2019-12-04] MEDS: MULTIVIT, IRON, MIN NO. 8, FA TABLET GT SCH (20:08)
[2019-12-05] MEDS: PANTOPRAZOLE ORAL SUSPENSION 40 MG SUSPDR.PKT GT SCH (05:17)
[2019-12-05 08:04] VITALS: BP 111/73
[2019-12-05] MEDS: PROTEIN SUPPLEMENT (PROSTAT) 30 ML LIQUID GT SCH ×2 (08:18→17:19)
[2019-12-05] MEDS: KETOCONAZOLE 2% SHAMPOO 120 ML BOTTLE TP SCH (08:18)
[2019-12-05] MEDS: COD LIVER OIL/ZINC OXIDE OINT 113 GM TUBE TP SCH ×2 (08:18→21:35)
[2019-12-05] MEDS: FINASTERIDE 5 MG TABLET GT SCH (08:18)
[2019-12-05] MEDS: DULOXETINE 30 MG CAPSULE.DR GT SCH (08:18)
[2019-12-05] MEDS: VITAMINS A AND D OINT TP SCH (08:18)
[2019-12-05] MEDS: HYDROGEN PEROXIDE 3% 118 ML BOTTLE TP SCH ×2 (10:10→21:35)
[2019-12-05 20:00] VITALS: BP 124/72
[2019-12-05] MEDS: MULTIVIT, IRON, MIN NO. 8, FA TABLET GT SCH (21:35)
[2019-12-06] MEDS: PANTOPRAZOLE ORAL SUSPENSION 40 MG SUSPDR.PKT GT SCH (05:25)
[2019-12-06 08:07] VITALS: BP 113/74
[2019-12-06] MEDS: DULOXETINE 30 MG CAPSULE.DR GT SCH (08:21)
[2019-12-06] MEDS: COD LIVER OIL/ZINC OXIDE OINT 113 GM TUBE TP SCH ×2 (08:22→21:09)
[2019-12-06] MEDS: PROTEIN SUPPLEMENT (PROSTAT) 30 ML LIQUID GT SCH ×2 (08:22→16:12)
[2019-12-06] MEDS: FINASTERIDE 5 MG TABLET GT SCH (08:22)
[2019-12-06] MEDS: VITAMINS A AND D OINT TP SCH (08:22)
[2019-12-06] MEDS: HYDROGEN PEROXIDE 3% 118 ML BOTTLE TP SCH ×2 (08:22→21:09)
[2019-12-06] MEDS: JEVITY 1.2 1000 ML LIQUID GT PRN (11:06)
[2019-12-06] MEDS: ACETAMINOPHEN 650 MG/20 ML UDC- SA PATIENTS-PAIN ONLY GT PRN ×2 (16:13→21:09)
[2019-12-06 20:53] VITALS: BP 129/57
[2019-12-06] MEDS: MULTIVIT, IRON, MIN NO. 8, FA TABLET GT SCH (21:09)
[2019-12-07] MEDS: ACETAMINOPHEN 650 MG/20 ML UDC- SA PATIENTS-PAIN ONLY GT PRN (01:33)
--- NOTE | 2019-12-07 01:35 | NUR ---
Patient patient in pain as evidence by screaming and facial grimacing. Tylenol given. Will continue to monitor.
[2019-12-07] MEDS: JEVITY 1.2 1000 ML LIQUID GT PRN ×2 (02:12→18:29)
[2019-12-07] MEDS: PANTOPRAZOLE ORAL SUSPENSION 40 MG SUSPDR.PKT GT SCH (06:12)
[2019-12-07] MEDS: FINASTERIDE 5 MG TABLET GT SCH (08:54)
[2019-12-07] MEDS: DULOXETINE 30 MG CAPSULE.DR GT SCH (08:54)
[2019-12-07] MEDS: PROTEIN SUPPLEMENT (PROSTAT) 30 ML LIQUID GT SCH ×2 (08:54→17:00)
[2019-12-07] MEDS: VITAMINS A AND D OINT TP SCH (08:55)
[2019-12-07] MEDS: COD LIVER OIL/ZINC OXIDE OINT 113 GM TUBE TP SCH ×2 (08:55→20:04)
[2019-12-07] MEDS: HYDROGEN PEROXIDE 3% 118 ML BOTTLE TP SCH ×2 (09:00→20:28)
[2019-12-07 12:02] VITALS: BP 118/61
[2019-12-07] MEDS: MULTIVIT, IRON, MIN NO. 8, FA TABLET GT SCH (20:04)
[2019-12-07 20:23] VITALS: BP 110/65
[2019-12-08] MEDS: PANTOPRAZOLE ORAL SUSPENSION 40 MG SUSPDR.PKT GT SCH (05:41)
[2019-12-08 08:05] VITALS: BP 133/78
[2019-12-08] MEDS: PROTEIN SUPPLEMENT (PROSTAT) 30 ML LIQUID GT SCH ×2 (08:44→17:22)
[2019-12-08] MEDS: COD LIVER OIL/ZINC OXIDE OINT 113 GM TUBE TP SCH ×2 (08:44→20:34)
[2019-12-08] MEDS: FINASTERIDE 5 MG TABLET GT SCH (08:44)
[2019-12-08] MEDS: VITAMINS A AND D OINT TP SCH (08:44)
[2019-12-08] MEDS: DULOXETINE 30 MG CAPSULE.DR GT SCH (08:44)
[2019-12-08] MEDS: ACETAMINOPHEN 650 MG/20 ML UDC- SA PATIENTS-PAIN ONLY GT PRN (08:46)
[2019-12-08] MEDS: HYDROGEN PEROXIDE 3% 118 ML BOTTLE TP SCH ×2 (09:59→21:07)
[2019-12-08 20:21] VITALS: BP 109/68
[2019-12-08] MEDS: MULTIVIT, IRON, MIN NO. 8, FA TABLET GT SCH (20:34)
[2019-12-09] MEDS: PANTOPRAZOLE ORAL SUSPENSION 40 MG SUSPDR.PKT GT SCH (06:27)
[2019-12-09] MEDS: JEVITY 1.2 1000 ML LIQUID GT PRN ×2 (06:28→22:24)
[2019-12-09 08:05] VITALS: BP 136/73
[2019-12-09] MEDS: HYDROGEN PEROXIDE 3% 118 ML BOTTLE TP SCH ×2 (09:00→20:53)
[2019-12-09] MEDS: DULOXETINE 30 MG CAPSULE.DR GT SCH (09:02)
[2019-12-09] MEDS: PROTEIN SUPPLEMENT (PROSTAT) 30 ML LIQUID GT SCH ×2 (09:02→17:47)
[2019-12-09] MEDS: FINASTERIDE 5 MG TABLET GT SCH (09:02)
[2019-12-09] MEDS: COD LIVER OIL/ZINC OXIDE OINT 113 GM TUBE TP SCH ×2 (09:03→21:00)
[2019-12-09] MEDS: KETOCONAZOLE 2% SHAMPOO 120 ML BOTTLE TP SCH (09:03)
[2019-12-09] MEDS: VITAMINS A AND D OINT TP SCH (09:03)
--- NOTE | 2019-12-09 14:23 | NUR ---
Pharmacy Update from Today's 12/09/19 IDT Meeting VS: Temp 98.2 HR 76 BP 136/73 LABS: (from 11/27/19) Wbc 6.5 H/H 13.6/39.8 Plt 216 Na 135 K 4.8 Cl 100 CO2 29 BUN/SCr 35/0.8 BS 93 Ca 9.3 phos 4.2 Mg 1.9 MEDICATION USE REVIEW: > Pt is not any anti-psych or anti-seizure medications > Pt on heparin 5000units q12hr daily for DVT Prophylaxis, CrCl 73.2 ml/min. Last plt 216 > Pt on Cymbalta 30mg daily for pain management, last CrCl 73.2 ml/min > Pt on protonix 40mg daily 11/03 for GI prophylaxis, possible GI upset per MD > Pt continued on finasteride 5mg daily for BPH > PRN MED USAGE: (Nov) Tylenol for pain/temp used x6 Zofran PRN N/V used x5 Artificial Tears used x0 Mylanta PRN used x0 [place] PRN used ~1-2/day Morphine PRN used x3 NEW ORDERS NOTED: > Heparin held for one night 11/26 for trach bleed, self-resolved, restarted 11/27 > Levaquin per [facility] resp cx completed 11/14 (7 day course) > Heparin on hold since 12/04 for minor bleeding from trach/nose. On hold until further MD orders. Patient was reviewed and discussed in detail with medication changes noted. Reported on current heparin hold, MD and staff in agreement and per gregg CALLAHAN as on for DVT prophylaxis. MD to assess pt and decide when or if to restart heparin at this time. No further issues noted, no further recs at this. time. Will continue to follow
--- NOTE | 2019-12-09 14:39 | NUR ---
INTERDISCIPLINARY PLAN OF CARE CONFERENCE was held today. Patient was unable to attend the meeting. Dr. Trujillo and the Interdisciplinary Team reviewed the current plan of care in detail. RN reported on patient's medical condition. See RN IDT conference notes. No major changes in condition were reported. See also all other disciplines IDT notes and physician's progress notes for additional details.
--- NOTE | 2019-12-09 15:05 | NUR ---
Seen and examined by Dr Smith ,no new orders noted.
[2019-12-09 19:57] VITALS: BP 121/62
[2019-12-09] MEDS: MULTIVIT, IRON, MIN NO. 8, FA TABLET GT SCH (21:00)
[2019-12-09] MEDS: ACETAMINOPHEN 650 MG/20 ML UDC- SA PATIENTS-PAIN ONLY GT PRN (22:16)
[2019-12-10] MEDS: PANTOPRAZOLE ORAL SUSPENSION 40 MG SUSPDR.PKT GT SCH (05:01)
[2019-12-10] MEDS: HYDROGEN PEROXIDE 3% 118 ML BOTTLE TP SCH ×2 (08:11→20:52)
[2019-12-10] MEDS: DULOXETINE 30 MG CAPSULE.DR GT SCH (08:54)
[2019-12-10] MEDS: FINASTERIDE 5 MG TABLET GT SCH (08:54)
[2019-12-10] MEDS: VITAMINS A AND D OINT TP SCH (08:54)
[2019-12-10] MEDS: PROTEIN SUPPLEMENT (PROSTAT) 30 ML LIQUID GT SCH ×2 (08:54→17:07)
[2019-12-10] MEDS: COD LIVER OIL/ZINC OXIDE OINT 113 GM TUBE TP SCH ×2 (08:54→21:23)
[2019-12-10 11:52] VITALS: BP 112/59
[2019-12-10 19:56] VITALS: BP 113/64
[2019-12-10] MEDS: MULTIVIT, IRON, MIN NO. 8, FA TABLET GT SCH (21:22)
[2019-12-10] MEDS: ACETAMINOPHEN 650 MG/20 ML UDC- SA PATIENTS-PAIN ONLY GT PRN (21:23)
[2019-12-11] MEDS: HYDROCODONE/APAP 10-325 MG TABLET GT PRN (02:25)
[2019-12-11] MEDS: PANTOPRAZOLE ORAL SUSPENSION 40 MG SUSPDR.PKT GT SCH (05:04)
[2019-12-11] MEDS: FINASTERIDE 5 MG TABLET GT SCH (08:09)
[2019-12-11] MEDS: DULOXETINE 30 MG CAPSULE.DR GT SCH (08:09)
[2019-12-11] MEDS: PROTEIN SUPPLEMENT (PROSTAT) 30 ML LIQUID GT SCH ×2 (08:09→17:12)
[2019-12-11] MEDS: VITAMINS A AND D OINT TP SCH (08:09)
[2019-12-11] MEDS: COD LIVER OIL/ZINC OXIDE OINT 113 GM TUBE TP SCH ×2 (08:09→21:00)
[2019-12-11 08:30] VITALS: BP 126/63
[2019-12-11] MEDS: HYDROGEN PEROXIDE 3% 118 ML BOTTLE TP SCH ×2 (09:59→21:28)
--- NOTE | 2019-12-11 13:00 | NUR ---
SEEN AND EXAMINED BY DR. APOORVA HUNTER AND WITH NNO.
[2019-12-11 20:20] VITALS: BP 127/56
[2019-12-11] MEDS: MULTIVIT, IRON, MIN NO. 8, FA TABLET GT SCH (21:00)
[2019-12-12] MEDS: PANTOPRAZOLE ORAL SUSPENSION 40 MG SUSPDR.PKT GT SCH (05:59)
[2019-12-12 08:04] VITALS: BP 118/70
[2019-12-12] MEDS: FINASTERIDE 5 MG TABLET GT SCH (08:15)
[2019-12-12] MEDS: PROTEIN SUPPLEMENT (PROSTAT) 30 ML LIQUID GT SCH ×2 (08:15→17:50)
[2019-12-12] MEDS: DULOXETINE 30 MG CAPSULE.DR GT SCH (08:15)
[2019-12-12] MEDS: COD LIVER OIL/ZINC OXIDE OINT 113 GM TUBE TP SCH ×2 (08:16→21:14)
[2019-12-12] MEDS: HYDROGEN PEROXIDE 3% 118 ML BOTTLE TP SCH ×2 (08:16→20:35)
[2019-12-12] MEDS: VITAMINS A AND D OINT TP SCH (08:16)
[2019-12-12] MEDS: JEVITY 1.2 1000 ML LIQUID GT PRN (08:18)
[2019-12-12] MEDS: ACETAMINOPHEN 650 MG/20 ML UDC- SA PATIENTS-PAIN ONLY GT PRN ×2 (08:19→21:14)
[2019-12-12] MEDS: POLYVINYL ALCOHOL OPHT DROPS 15 ML BOTTLE EACHEYE PRN (12:12)
[2019-12-12 20:15] VITALS: BP 111/61
[2019-12-12] MEDS: MULTIVIT, IRON, MIN NO. 8, FA TABLET GT SCH (21:14)
[2019-12-13] MEDS: HYDROCODONE/APAP 10-325 MG TABLET GT PRN
[2019-12-13] MEDS: JEVITY 1.2 1000 ML LIQUID GT PRN ×2 (00:01→17:42)
[2019-12-13] MEDS: PANTOPRAZOLE ORAL SUSPENSION 40 MG SUSPDR.PKT GT SCH (06:00)
[2019-12-13 08:04] VITALS: BP 125/62
[2019-12-13] MEDS: HYDROGEN PEROXIDE 3% 118 ML BOTTLE TP SCH ×2 (09:00→21:00)
[2019-12-13] MEDS: FINASTERIDE 5 MG TABLET GT SCH (09:12)
[2019-12-13] MEDS: DULOXETINE 30 MG CAPSULE.DR GT SCH (09:12)
[2019-12-13] MEDS: PROTEIN SUPPLEMENT (PROSTAT) 30 ML LIQUID GT SCH ×2 (09:13→17:42)
[2019-12-13] MEDS: VITAMINS A AND D OINT TP SCH (09:13)
[2019-12-13] MEDS: COD LIVER OIL/ZINC OXIDE OINT 113 GM TUBE TP SCH ×2 (09:13→20:25)
--- NOTE | 2019-12-13 14:48 | NUR ---
NEW ORDER CARRIED OUT FROM DR. APOORVA HUNTER FOR WATER FLUSHES 200 ML Q 6 HRS. RECOMMENDED BY REG. TRANSPORTATION PROJECT MANAGER.
[2019-12-13] MEDS: MULTIVIT, IRON, MIN NO. 8, FA TABLET GT SCH (20:24)
[2019-12-13 20:28] VITALS: BP 108/61
[2019-12-14] MEDS: PANTOPRAZOLE ORAL SUSPENSION 40 MG SUSPDR.PKT GT SCH (06:14)
[2019-12-14] MEDS: HYDROGEN PEROXIDE 3% 118 ML BOTTLE TP SCH ×2 (07:20→20:47)
[2019-12-14 08:03] VITALS: BP 129/66
[2019-12-14] MEDS: FINASTERIDE 5 MG TABLET GT SCH (08:11)
[2019-12-14] MEDS: COD LIVER OIL/ZINC OXIDE OINT 113 GM TUBE TP SCH ×2 (08:11→21:16)
[2019-12-14] MEDS: PROTEIN SUPPLEMENT (PROSTAT) 30 ML LIQUID GT SCH ×2 (08:11→17:28)
[2019-12-14] MEDS: VITAMINS A AND D OINT TP SCH (08:11)
[2019-12-14] MEDS: DULOXETINE 30 MG CAPSULE.DR GT SCH (08:11)
[2019-12-14 20:05] VITALS: BP 125/72
[2019-12-14] MEDS: MULTIVIT, IRON, MIN NO. 8, FA TABLET GT SCH (21:16)
[2019-12-15] MEDS: PANTOPRAZOLE ORAL SUSPENSION 40 MG SUSPDR.PKT GT SCH (06:08)
[2019-12-15 08:05] VITALS: BP 122/69
[2019-12-15] MEDS: DULOXETINE 30 MG CAPSULE.DR GT SCH (08:06)
[2019-12-15] MEDS: PROTEIN SUPPLEMENT (PROSTAT) 30 ML LIQUID GT SCH ×2 (08:07→17:19)
[2019-12-15] MEDS: COD LIVER OIL/ZINC OXIDE OINT 113 GM TUBE TP SCH ×2 (08:07→21:00)
[2019-12-15] MEDS: VITAMINS A AND D OINT TP SCH (08:07)
[2019-12-15] MEDS: FINASTERIDE 5 MG TABLET GT SCH (08:07)
[2019-12-15] MEDS: HYDROGEN PEROXIDE 3% 118 ML BOTTLE TP SCH ×2 (09:56→21:07)
[2019-12-15] MEDS: JEVITY 1.2 1000 ML LIQUID GT PRN (17:20)
[2019-12-15 20:13] VITALS: BP 123/53
[2019-12-15] MEDS: MULTIVIT, IRON, MIN NO. 8, FA TABLET GT SCH (21:00)
[2019-12-16] MEDS: PANTOPRAZOLE ORAL SUSPENSION 40 MG SUSPDR.PKT GT SCH (05:48)
[2019-12-16] MEDS: VITAMINS A AND D OINT TP SCH (09:00)
[2019-12-16] MEDS: FINASTERIDE 5 MG TABLET GT SCH (09:00)
[2019-12-16] MEDS: PROTEIN SUPPLEMENT (PROSTAT) 30 ML LIQUID GT SCH ×2 (09:00→17:00)
[2019-12-16] MEDS: COD LIVER OIL/ZINC OXIDE OINT 113 GM TUBE TP SCH ×2 (09:00→21:17)
[2019-12-16] MEDS: DULOXETINE 30 MG CAPSULE.DR GT SCH (09:00)
[2019-12-16] MEDS: HYDROGEN PEROXIDE 3% 118 ML BOTTLE TP SCH ×2 (09:00→20:39)
[2019-12-16] MEDS: JEVITY 1.2 1000 ML LIQUID GT PRN (10:20)
[2019-12-16 11:17] VITALS: BP 124/65
[2019-12-16] MEDS: ACETAMINOPHEN 650 MG/20 ML UDC- SA PATIENTS-PAIN ONLY GT PRN (14:34)
[2019-12-16 20:00] VITALS: BP 124/84
[2019-12-16] MEDS: MULTIVIT, IRON, MIN NO. 8, FA TABLET GT SCH (21:17)
[2019-12-17] MEDS: JEVITY 1.2 1000 ML LIQUID GT PRN (00:44)
[2019-12-17] MEDS: PANTOPRAZOLE ORAL SUSPENSION 40 MG SUSPDR.PKT GT SCH (06:45)
[2019-12-17 08:05] VITALS: BP 110/60
[2019-12-17] MEDS: PROTEIN SUPPLEMENT (PROSTAT) 30 ML LIQUID GT SCH ×2 (08:22→17:08)
[2019-12-17] MEDS: FINASTERIDE 5 MG TABLET GT SCH (08:22)
[2019-12-17] MEDS: DULOXETINE 30 MG CAPSULE.DR GT SCH (08:22)
[2019-12-17] MEDS: COD LIVER OIL/ZINC OXIDE OINT 113 GM TUBE TP SCH ×2 (08:22→21:27)
[2019-12-17] MEDS: VITAMINS A AND D OINT TP SCH (08:22)
[2019-12-17] MEDS: HYDROGEN PEROXIDE 3% 118 ML BOTTLE TP SCH ×2 (09:00→21:31)
[2019-12-17 20:00] VITALS: BP 124/72
[2019-12-17] MEDS: MULTIVIT, IRON, MIN NO. 8, FA TABLET GT SCH (21:27)
[2019-12-17] MEDS: NEOMY/BACITRA/POLYMYXIN B OINT UD PACKET TP SCH (21:27)
[2019-12-18] MEDS: JEVITY 1.2 1000 ML LIQUID GT PRN (03:09)
[2019-12-18] MEDS: PANTOPRAZOLE ORAL SUSPENSION 40 MG SUSPDR.PKT GT SCH (05:46)
[2019-12-18 08:04] VITALS: BP 117/66
[2019-12-18] MEDS: DULOXETINE 30 MG CAPSULE.DR GT SCH (08:28)
[2019-12-18] MEDS: NEOMY/BACITRA/POLYMYXIN B OINT UD PACKET TP SCH ×2 (08:28→20:55)
[2019-12-18] MEDS: VITAMINS A AND D OINT TP SCH (08:28)
[2019-12-18] MEDS: FINASTERIDE 5 MG TABLET GT SCH (08:28)
[2019-12-18] MEDS: PROTEIN SUPPLEMENT (PROSTAT) 30 ML LIQUID GT SCH ×2 (08:28→17:07)
[2019-12-18] MEDS: COD LIVER OIL/ZINC OXIDE OINT 113 GM TUBE TP SCH ×2 (08:28→20:55)
[2019-12-18] MEDS: HYDROGEN PEROXIDE 3% 118 ML BOTTLE TP SCH ×2 (08:50→21:04)
[2019-12-18 20:00] VITALS: BP 147/79
[2019-12-18] MEDS: MULTIVIT, IRON, MIN NO. 8, FA TABLET GT SCH (20:55)
[2019-12-19] MEDS: PANTOPRAZOLE ORAL SUSPENSION 40 MG SUSPDR.PKT GT SCH (06:12)
[2019-12-19] MEDS: HYDROGEN PEROXIDE 3% 118 ML BOTTLE TP SCH ×2 (09:00→20:30)
[2019-12-19] MEDS: DULOXETINE 30 MG CAPSULE.DR GT SCH (09:07)
[2019-12-19] MEDS: PROTEIN SUPPLEMENT (PROSTAT) 30 ML LIQUID GT SCH ×2 (09:08→16:51)
[2019-12-19] MEDS: FINASTERIDE 5 MG TABLET GT SCH (09:08)
[2019-12-19] MEDS: COD LIVER OIL/ZINC OXIDE OINT 113 GM TUBE TP SCH ×2 (09:09→20:38)
[2019-12-19] MEDS: NEOMY/BACITRA/POLYMYXIN B OINT UD PACKET TP SCH ×2 (09:09→20:38)
[2019-12-19] MEDS: VITAMINS A AND D OINT TP SCH (09:09)
[2019-12-19] MEDS: JEVITY 1.2 1000 ML LIQUID GT PRN (09:17)
[2019-12-19 20:22] VITALS: BP 120/45
[2019-12-19] MEDS: MULTIVIT, IRON, MIN NO. 8, FA TABLET GT SCH (20:38)
[2019-12-20] MEDS: JEVITY 1.2 1000 ML LIQUID GT PRN ×2 (00:12→17:08)
[2019-12-20] MEDS: PANTOPRAZOLE ORAL SUSPENSION 40 MG SUSPDR.PKT GT SCH (05:14)
[2019-12-20] MEDS: FINASTERIDE 5 MG TABLET GT SCH (08:54)
[2019-12-20] MEDS: DULOXETINE 30 MG CAPSULE.DR GT SCH (08:54)
[2019-12-20] MEDS: COD LIVER OIL/ZINC OXIDE OINT 113 GM TUBE TP SCH ×2 (08:55→20:20)
[2019-12-20] MEDS: VITAMINS A AND D OINT TP SCH (08:55)
[2019-12-20] MEDS: PROTEIN SUPPLEMENT (PROSTAT) 30 ML LIQUID GT SCH ×2 (08:55→17:08)
[2019-12-20] MEDS: NEOMY/BACITRA/POLYMYXIN B OINT UD PACKET TP SCH ×2 (08:55→20:20)
[2019-12-20] MEDS: HYDROGEN PEROXIDE 3% 118 ML BOTTLE TP SCH ×2 (09:00→21:28)
[2019-12-20 11:31] VITALS: BP 134/81
[2019-12-20] MEDS: MULTIVIT, IRON, MIN NO. 8, FA TABLET GT SCH (20:20)
[2019-12-20 20:25] VITALS: BP 139/67
[2019-12-21] MEDS: PANTOPRAZOLE ORAL SUSPENSION 40 MG SUSPDR.PKT GT SCH (05:45)
[2019-12-21 08:00] VITALS: BP 114/70
[2019-12-21] MEDS: FINASTERIDE 5 MG TABLET GT SCH (08:21)
[2019-12-21] MEDS: DULOXETINE 30 MG CAPSULE.DR GT SCH (08:21)
[2019-12-21] MEDS: PROTEIN SUPPLEMENT (PROSTAT) 30 ML LIQUID GT SCH ×2 (08:21→16:55)
[2019-12-21] MEDS: COD LIVER OIL/ZINC OXIDE OINT 113 GM TUBE TP SCH ×2 (08:22→21:00)
[2019-12-21] MEDS: NEOMY/BACITRA/POLYMYXIN B OINT UD PACKET TP SCH ×2 (08:23→21:00)
[2019-12-21] MEDS: VITAMINS A AND D OINT TP SCH (08:23)
[2019-12-21] MEDS: HYDROGEN PEROXIDE 3% 118 ML BOTTLE TP SCH ×2 (09:00→20:29)
[2019-12-21] MEDS: JEVITY 1.2 1000 ML LIQUID GT PRN (09:50)
[2019-12-21] MEDS: MULTIVIT, IRON, MIN NO. 8, FA TABLET GT SCH (20:06)
[2019-12-21] MEDS: ACETAMINOPHEN 650 MG/20 ML UDC- SA PATIENTS-PAIN ONLY GT PRN (20:07)
[2019-12-21 20:27] VITALS: BP 138/74
[2019-12-22] MEDS: JEVITY 1.2 1000 ML LIQUID GT PRN ×2 (01:40→17:52)
[2019-12-22] MEDS: PANTOPRAZOLE ORAL SUSPENSION 40 MG SUSPDR.PKT GT SCH (05:02)
[2019-12-22 08:00] VITALS: BP 119/74
[2019-12-22] MEDS: HYDROGEN PEROXIDE 3% 118 ML BOTTLE TP SCH ×2 (08:08→20:31)
[2019-12-22] MEDS: DULOXETINE 30 MG CAPSULE.DR GT SCH (08:43)
[2019-12-22] MEDS: VITAMINS A AND D OINT TP SCH (08:44)
[2019-12-22] MEDS: COD LIVER OIL/ZINC OXIDE OINT 113 GM TUBE TP SCH ×2 (08:44→20:31)
[2019-12-22] MEDS: FINASTERIDE 5 MG TABLET GT SCH (08:44)
[2019-12-22] MEDS: PROTEIN SUPPLEMENT (PROSTAT) 30 ML LIQUID GT SCH ×2 (08:44→17:52)
[2019-12-22] MEDS: NEOMY/BACITRA/POLYMYXIN B OINT UD PACKET TP SCH ×2 (09:00→20:31)
[2019-12-22] MEDS: MULTIVIT, IRON, MIN NO. 8, FA TABLET GT SCH (20:31)
[2019-12-22 20:55] VITALS: BP 128/75
[2019-12-23] MEDS: PANTOPRAZOLE ORAL SUSPENSION 40 MG SUSPDR.PKT GT SCH (05:04)
[2019-12-23 08:00] VITALS: BP 126/59
[2019-12-23 08:05] LABS: CARBON DIOXIDE 28 mmol/L (21-32); CHLORIDE 103 mmol/L (98-107); CREATININE 0.7 mg/dL (0.6-1.3); GLUCOSE 99 mg/dL (74-106); MAGNESIUM 2.1 mg/dL (1.8-2.4); PHOSPHOROUS 3.4 mg/dL (2.5-4.9); POTASSIUM 4.3 mmol/L (3.5-5.1); UREA NITROGEN, BLOOD 36 mg/dL (7-18)
[2019-12-23 08:24] LABS: BASOPHILS % (AUTO) 0.4 % (0.0-2.0); EOSINOPHILS # (AUTO) 0.3 K/uL (0.0-0.7); EOSINOPHILS % (AUTO) 3.7 % (0.0-7.0); HEMATOCRIT 42.2 % (36.7-47.1); HEMOGLOBIN 14.1 g/dL (12.5-16.3); LYMPHOCYTES # (AUTO) 1.6 K/uL (20.0-40.0); LYMPHOCYTES % (AUTO) 21.5 % (20.5-51.5); MEAN CORPUSCULAR HEMOGLOBIN 29.5 uug (23.8-33.4); MEAN CORPUSCULAR HGB CONC 33 g/dL (32.5-36.3); MEAN CORPUSCULAR VOLUME 88.5 fL (73.0-96.2); MONOCYTES # (AUTO) 0.4 K/uL (2.0-10.0); MONOCYTES % (AUTO) 5.7 % (0.0-11.0); NEUTROPHILS # (AUTO) 5.1 K/uL (1.8-8.9); NEUTROPHILS % (AUTO) 68.7 % (38.5-71.5); PLATELET COUNT (AUTO) 184 K/uL (152-348); RED BLOOD CELL COUNT(AUTO) 4.77 MIL/uL (4.06-5.63); WHITE BLOOD COUNT (AUTO) 7.5 K/uL (3.6-10.2)
[2019-12-23] MEDS: FINASTERIDE 5 MG TABLET GT SCH (08:38)
[2019-12-23] MEDS: DULOXETINE 30 MG CAPSULE.DR GT SCH (08:38)
[2019-12-23] MEDS: PROTEIN SUPPLEMENT (PROSTAT) 30 ML LIQUID GT SCH ×2 (08:39→17:11)
[2019-12-23] MEDS: COD LIVER OIL/ZINC OXIDE OINT 113 GM TUBE TP SCH ×2 (08:39→21:00)
[2019-12-23] MEDS: VITAMINS A AND D OINT TP SCH (08:39)
[2019-12-23] MEDS: NEOMY/BACITRA/POLYMYXIN B OINT UD PACKET TP SCH ×2 (08:39→21:00)
[2019-12-23] MEDS: HYDROGEN PEROXIDE 3% 118 ML BOTTLE TP SCH ×2 (09:42→20:59)
[2019-12-23 19:48] VITALS: BP 119/60
[2019-12-23] MEDS: MULTIVIT, IRON, MIN NO. 8, FA TABLET GT SCH (21:00)
[2019-12-24] MEDS: PANTOPRAZOLE ORAL SUSPENSION 40 MG SUSPDR.PKT GT SCH (06:00)
[2019-12-24 08:00] VITALS: BP 124/63
[2019-12-24] MEDS: COD LIVER OIL/ZINC OXIDE OINT 113 GM TUBE TP SCH ×2 (08:48→21:00)
[2019-12-24] MEDS: DULOXETINE 30 MG CAPSULE.DR GT SCH (08:49)
[2019-12-24] MEDS: NEOMY/BACITRA/POLYMYXIN B OINT UD PACKET TP SCH ×2 (08:49→21:00)
[2019-12-24] MEDS: PROTEIN SUPPLEMENT (PROSTAT) 30 ML LIQUID GT SCH ×2 (08:49→17:06)
[2019-12-24] MEDS: VITAMINS A AND D OINT TP SCH (08:49)
[2019-12-24] MEDS: FINASTERIDE 5 MG TABLET GT SCH (08:49)
[2019-12-24] MEDS: HYDROGEN PEROXIDE 3% 118 ML BOTTLE TP SCH ×2 (09:00→21:40)
[2019-12-24] MEDS: MULTIVIT, IRON, MIN NO. 8, FA TABLET GT SCH (21:00)
[2019-12-24 23:05] VITALS: BP 132/76
[2019-12-25] MEDS: HYDROCODONE/APAP 10-325 MG TABLET GT PRN ×2 (04:07→12:30)
[2019-12-25] MEDS: PANTOPRAZOLE ORAL SUSPENSION 40 MG SUSPDR.PKT GT SCH (06:17)
[2019-12-25 08:00] VITALS: BP 120/62
[2019-12-25] MEDS: FINASTERIDE 5 MG TABLET GT SCH (08:08)
[2019-12-25] MEDS: PROTEIN SUPPLEMENT (PROSTAT) 30 ML LIQUID GT SCH ×2 (08:08→17:06)
[2019-12-25] MEDS: DULOXETINE 30 MG CAPSULE.DR GT SCH (08:08)
[2019-12-25] MEDS: COD LIVER OIL/ZINC OXIDE OINT 113 GM TUBE TP SCH ×2 (08:08→21:13)
[2019-12-25] MEDS: VITAMINS A AND D OINT TP SCH (08:09)
[2019-12-25] MEDS: NEOMY/BACITRA/POLYMYXIN B OINT UD PACKET TP SCH ×2 (08:09→21:13)
[2019-12-25] MEDS: HYDROGEN PEROXIDE 3% 118 ML BOTTLE TP SCH ×2 (09:00→21:47)
[2019-12-25] MEDS: ACETAMINOPHEN 650 MG/20 ML UDC- SA PATIENTS-PAIN ONLY GT PRN (10:24)
[2019-12-25] MEDS: JEVITY 1.2 1000 ML LIQUID GT PRN (10:57)
[2019-12-25] MEDS: POLYVINYL ALCOHOL OPHT DROPS 15 ML BOTTLE EACHEYE PRN (13:54)
[2019-12-25] MEDS: MAG HYDROX/AL HYDROX/SIMETH 30 ML LIQUID UDC GT PRN (17:12)
[2019-12-25] MEDS: ONDANSETRON HCL 4 MG TABLET GT PRN (17:49)
[2019-12-25] MEDS: MULTIVIT, IRON, MIN NO. 8, FA TABLET GT SCH (21:13)
[2019-12-25 22:58] VITALS: BP 134/60
[2019-12-26] MEDS: ACETAMINOPHEN 650 MG/20 ML UDC- SA PATIENTS-PAIN ONLY GT PRN (03:00)
[2019-12-26] MEDS: PANTOPRAZOLE ORAL SUSPENSION 40 MG SUSPDR.PKT GT SCH (05:02)
[2019-12-26] MEDS: DULOXETINE 30 MG CAPSULE.DR GT SCH (08:48)
[2019-12-26] MEDS: COD LIVER OIL/ZINC OXIDE OINT 113 GM TUBE TP SCH ×2 (08:48→20:13)
[2019-12-26] MEDS: FINASTERIDE 5 MG TABLET GT SCH (08:48)
[2019-12-26] MEDS: PROTEIN SUPPLEMENT (PROSTAT) 30 ML LIQUID GT SCH ×2 (08:48→17:32)
[2019-12-26] MEDS: VITAMINS A AND D OINT TP SCH (08:49)
[2019-12-26] MEDS: NEOMY/BACITRA/POLYMYXIN B OINT UD PACKET TP SCH ×2 (08:49→20:14)
[2019-12-26] MEDS: HYDROGEN PEROXIDE 3% 118 ML BOTTLE TP SCH ×2 (09:15→20:52)
[2019-12-26 09:21] VITALS: BP 113/73
[2019-12-26] MEDS: JEVITY 1.2 1000 ML LIQUID GT PRN ×2 (17:32)
[2019-12-26] MEDS: MULTIVIT, IRON, MIN NO. 8, FA TABLET GT SCH (20:13)
[2019-12-26 22:11] VITALS: BP 113/60
[2019-12-27] MEDS: ACETAMINOPHEN 650 MG/20 ML UDC- SA PATIENTS-PAIN ONLY GT PRN ×3 (04:31→23:00)
[2019-12-27] MEDS: PANTOPRAZOLE ORAL SUSPENSION 40 MG SUSPDR.PKT GT SCH (05:22)
[2019-12-27] MEDS: HYDROGEN PEROXIDE 3% 118 ML BOTTLE TP SCH ×2 (07:35→21:00)
[2019-12-27] MEDS: DULOXETINE 30 MG CAPSULE.DR GT SCH (09:33)
[2019-12-27] MEDS: FINASTERIDE 5 MG TABLET GT SCH (09:33)
[2019-12-27] MEDS: COD LIVER OIL/ZINC OXIDE OINT 113 GM TUBE TP SCH ×2 (09:34→21:53)
[2019-12-27] MEDS: ONDANSETRON HCL 4 MG TABLET GT PRN (09:34)
[2019-12-27] MEDS: NEOMY/BACITRA/POLYMYXIN B OINT UD PACKET TP SCH ×2 (09:35→21:53)
[2019-12-27] MEDS: VITAMINS A AND D OINT TP SCH (09:35)
[2019-12-27] MEDS: PROTEIN SUPPLEMENT (PROSTAT) 30 ML LIQUID GT SCH ×2 (09:39→17:49)
[2019-12-27] MEDS: JEVITY 1.2 1000 ML LIQUID GT PRN (11:21)
[2019-12-27 11:37] VITALS: BP 130/76
[2019-12-27] MEDS: MULTIVIT, IRON, MIN NO. 8, FA TABLET GT SCH (21:53)
[2019-12-27 23:00] VITALS: BP 118/59
[2019-12-28] MEDS: HYDROCODONE/APAP 10-325 MG TABLET GT PRN ×2 (02:11→14:59)
[2019-12-28] MEDS: PANTOPRAZOLE ORAL SUSPENSION 40 MG SUSPDR.PKT GT SCH (05:17)
[2019-12-28] MEDS: MORPHINE SULFATE 2 MG/1 ML DISP.SYRIN IM PRN (06:07)
[2019-12-28 08:01] VITALS: BP 110/53
[2019-12-28] MEDS: COD LIVER OIL/ZINC OXIDE OINT 113 GM TUBE TP SCH ×2 (09:24→20:52)
[2019-12-28] MEDS: PROTEIN SUPPLEMENT (PROSTAT) 30 ML LIQUID GT SCH ×2 (09:24→17:23)
[2019-12-28] MEDS: DULOXETINE 30 MG CAPSULE.DR GT SCH (09:24)
[2019-12-28] MEDS: FINASTERIDE 5 MG TABLET GT SCH (09:24)
[2019-12-28] MEDS: NEOMY/BACITRA/POLYMYXIN B OINT UD PACKET TP SCH ×2 (09:25→20:52)
[2019-12-28] MEDS: VITAMINS A AND D OINT TP SCH (09:25)
[2019-12-28] MEDS: HYDROGEN PEROXIDE 3% 118 ML BOTTLE TP SCH ×2 (09:43→21:21)
[2019-12-28] MEDS: JEVITY 1.2 1000 ML LIQUID GT PRN (20:40)
[2019-12-28] MEDS: MULTIVIT, IRON, MIN NO. 8, FA TABLET GT SCH (20:52)
[2019-12-28 22:29] VITALS: BP 115/54
[2019-12-29] MEDS: HYDROCODONE/APAP 10-325 MG TABLET GT PRN (00:46)
[2019-12-29] MEDS: PANTOPRAZOLE ORAL SUSPENSION 40 MG SUSPDR.PKT GT SCH (05:46)
[2019-12-29 08:05] VITALS: BP 156/79
[2019-12-29] MEDS: PROTEIN SUPPLEMENT (PROSTAT) 30 ML LIQUID GT SCH ×2 (08:55→17:49)
[2019-12-29] MEDS: COD LIVER OIL/ZINC OXIDE OINT 113 GM TUBE TP SCH ×2 (08:55→20:53)
[2019-12-29] MEDS: FINASTERIDE 5 MG TABLET GT SCH (08:55)
[2019-12-29] MEDS: DULOXETINE 30 MG CAPSULE.DR GT SCH (08:55)
[2019-12-29] MEDS: NEOMY/BACITRA/POLYMYXIN B OINT UD PACKET TP SCH ×2 (08:56→20:53)
[2019-12-29] MEDS: VITAMINS A AND D OINT TP SCH (08:56)
[2019-12-29] MEDS: HYDROGEN PEROXIDE 3% 118 ML BOTTLE TP SCH ×2 (09:00→21:12)
[2019-12-29] MEDS: ACETAMINOPHEN 650 MG/20 ML UDC- SA PATIENTS-PAIN ONLY GT PRN (09:03)
--- NOTE | 2019-12-29 15:52 | NUR ---
SEEN AND EXAMINED BY CLAYTON SEE.
[2019-12-29] MEDS: JEVITY 1.2 1000 ML LIQUID GT PRN (17:49)
[2019-12-29] MEDS: MULTIVIT, IRON, MIN NO. 8, FA TABLET GT SCH (20:53)
[2019-12-29 21:01] VITALS: BP 138/75
[2019-12-30] MEDS: PANTOPRAZOLE ORAL SUSPENSION 40 MG SUSPDR.PKT GT SCH (06:00)
[2019-12-30 08:04] VITALS: BP 126/70
[2019-12-30] MEDS: DULOXETINE 30 MG CAPSULE.DR GT SCH (09:00)
[2019-12-30] MEDS: FINASTERIDE 5 MG TABLET GT SCH (09:00)
[2019-12-30] MEDS: VITAMINS A AND D OINT TP SCH (09:00)
[2019-12-30] MEDS: COD LIVER OIL/ZINC OXIDE OINT 113 GM TUBE TP SCH ×2 (09:00→20:31)
[2019-12-30] MEDS: NEOMY/BACITRA/POLYMYXIN B OINT UD PACKET TP SCH ×2 (09:00→20:31)
[2019-12-30] MEDS: PROTEIN SUPPLEMENT (PROSTAT) 30 ML LIQUID GT SCH ×2 (09:00→17:48)
[2019-12-30] MEDS: HYDROGEN PEROXIDE 3% 118 ML BOTTLE TP SCH ×2 (09:00→21:03)
[2019-12-30 19:44] VITALS: BP 121/48
[2019-12-30] MEDS: MULTIVIT, IRON, MIN NO. 8, FA TABLET GT SCH (20:31)
[2019-12-30] MEDS: ONDANSETRON HCL 4 MG TABLET GT PRN (22:00)
[2019-12-30] MEDS: JEVITY 1.2 1000 ML LIQUID GT PRN (22:27)
[2019-12-31] MEDS: PANTOPRAZOLE ORAL SUSPENSION 40 MG SUSPDR.PKT GT SCH (05:50)
[2019-12-31 08:05] VITALS: BP 115/63
[2019-12-31] MEDS: FINASTERIDE 5 MG TABLET GT SCH (08:31)
[2019-12-31] MEDS: DULOXETINE 30 MG CAPSULE.DR GT SCH (08:31)
[2019-12-31] MEDS: PROTEIN SUPPLEMENT (PROSTAT) 30 ML LIQUID GT SCH ×2 (08:31→17:00)
[2019-12-31] MEDS: COD LIVER OIL/ZINC OXIDE OINT 113 GM TUBE TP SCH ×2 (08:32→21:09)
[2019-12-31] MEDS: VITAMINS A AND D OINT TP SCH (08:32)
[2019-12-31] MEDS: NEOMY/BACITRA/POLYMYXIN B OINT UD PACKET TP SCH (08:32)
[2019-12-31] MEDS: HYDROGEN PEROXIDE 3% 118 ML BOTTLE TP SCH ×2 (09:49→20:48)
--- NOTE | 2019-12-31 14:17 | NUR ---
MARIETTA met with patient's Bobby today and checked in on how she was doing. Bobby stated she was doing well, and was working on contacting her son, whom she and patient had not had much contact with for years. SW allowed Bobby to express her thoughts and feelings, provided support. Bobby expressed confidence in being able to contact him soon. MARIETTA then informed Bobby that the next IDT meeting for the patient is scheduled for 01/06/2020 at 10am.
--- NOTE | 2019-12-31 16:47 | NUR ---
MARIETTA scheduled patient's annual dental exam with Harry at Dr. Osullivan's office, . Patient is scheduled for his dental exam on 01/21/2020.
[2019-12-31 19:40] VITALS: BP 126/76
[2019-12-31] MEDS: MULTIVIT, IRON, MIN NO. 8, FA TABLET GT SCH (21:09)
[2020-01-01] MEDS: PANTOPRAZOLE ORAL SUSPENSION 40 MG SUSPDR.PKT GT SCH (05:15)
[2020-01-01] MEDS: JEVITY 1.2 1000 ML LIQUID GT PRN ×2 (05:16→17:49)
[2020-01-01 08:30] VITALS: BP 104/56
[2020-01-01] MEDS: HYDROGEN PEROXIDE 3% 118 ML BOTTLE TP SCH ×2 (09:06→21:35)
[2020-01-01] MEDS: DULOXETINE 30 MG CAPSULE.DR GT SCH (09:15)
[2020-01-01] MEDS: VITAMINS A AND D OINT TP SCH (09:16)
[2020-01-01] MEDS: FINASTERIDE 5 MG TABLET GT SCH (09:16)
[2020-01-01] MEDS: PROTEIN SUPPLEMENT (PROSTAT) 30 ML LIQUID GT SCH ×2 (09:16→17:49)
[2020-01-01] MEDS: COD LIVER OIL/ZINC OXIDE OINT 113 GM TUBE TP SCH ×2 (09:16→21:56)
--- NOTE | 2020-01-01 19:00 | NUR ---
SEEN BY WITH NNO.
[2020-01-01 19:45] VITALS: BP 126/66
[2020-01-01] MEDS: MULTIVIT, IRON, MIN NO. 8, FA TABLET GT SCH (21:56)
[2020-01-02] MEDS: PANTOPRAZOLE ORAL SUSPENSION 40 MG SUSPDR.PKT GT SCH (05:53)
[2020-01-02] MEDS: DULOXETINE 30 MG CAPSULE.DR GT SCH (08:14)
[2020-01-02] MEDS: COD LIVER OIL/ZINC OXIDE OINT 113 GM TUBE TP SCH ×2 (08:15→20:44)
[2020-01-02] MEDS: PROTEIN SUPPLEMENT (PROSTAT) 30 ML LIQUID GT SCH ×2 (08:15→17:44)
[2020-01-02] MEDS: FINASTERIDE 5 MG TABLET GT SCH (08:15)
[2020-01-02 08:30] VITALS: BP 106/64
[2020-01-02] MEDS: HYDROGEN PEROXIDE 3% 118 ML BOTTLE TP SCH ×2 (09:00→21:20)
[2020-01-02] MEDS: VITAMINS A AND D OINT TP SCH (09:00)
[2020-01-02] MEDS: JEVITY 1.2 1000 ML LIQUID GT PRN (11:55)
[2020-01-02] MEDS: ACETAMINOPHEN 650 MG/20 ML UDC- SA PATIENTS-PAIN ONLY GT PRN (17:53)
[2020-01-02] MEDS: POLYVINYL ALCOHOL OPHT DROPS 15 ML BOTTLE EACHEYE PRN (17:53)
[2020-01-02] MEDS: MULTIVIT, IRON, MIN NO. 8, FA TABLET GT SCH (20:44)
[2020-01-02 20:56] VITALS: BP 120/69
[2020-01-03] MEDS: ACETAMINOPHEN 650 MG/20 ML UDC- SA PATIENTS-PAIN ONLY GT PRN (00:54)
[2020-01-03] MEDS: JEVITY 1.2 1000 ML LIQUID GT PRN ×2 (03:29→23:55)
[2020-01-03] MEDS: PANTOPRAZOLE ORAL SUSPENSION 40 MG SUSPDR.PKT GT SCH (06:13)
[2020-01-03 08:00] VITALS: BP 132/75
[2020-01-03] MEDS: HYDROGEN PEROXIDE 3% 118 ML BOTTLE TP SCH ×2 (08:17→21:00)
[2020-01-03] MEDS: PROTEIN SUPPLEMENT (PROSTAT) 30 ML LIQUID GT SCH ×2 (08:20→16:05)
[2020-01-03] MEDS: COD LIVER OIL/ZINC OXIDE OINT 113 GM TUBE TP SCH ×2 (08:21→20:35)
[2020-01-03] MEDS: VITAMINS A AND D OINT TP SCH (08:21)
[2020-01-03] MEDS: FINASTERIDE 5 MG TABLET GT SCH (08:23)
[2020-01-03] MEDS: DULOXETINE 30 MG CAPSULE.DR GT SCH (08:23)
[2020-01-03] MEDS: POLYVINYL ALCOHOL OPHT DROPS 15 ML BOTTLE EACHEYE PRN (16:06)
[2020-01-03] MEDS: MULTIVIT, IRON, MIN NO. 8, FA TABLET GT SCH (20:35)
[2020-01-03 22:01] VITALS: BP 122/79
[2020-01-04] MEDS: HYDROCODONE/APAP 10-325 MG TABLET GT PRN (01:32)
[2020-01-04] MEDS: PANTOPRAZOLE ORAL SUSPENSION 40 MG SUSPDR.PKT GT SCH (05:49)
[2020-01-04] MEDS: DULOXETINE 30 MG CAPSULE.DR GT SCH (09:12)
[2020-01-04] MEDS: COD LIVER OIL/ZINC OXIDE OINT 113 GM TUBE TP SCH ×2 (09:12→20:49)
[2020-01-04] MEDS: PROTEIN SUPPLEMENT (PROSTAT) 30 ML LIQUID GT SCH ×2 (09:12→17:13)
[2020-01-04] MEDS: FINASTERIDE 5 MG TABLET GT SCH (09:12)
[2020-01-04] MEDS: VITAMINS A AND D OINT TP SCH (09:12)
[2020-01-04] MEDS: HYDROGEN PEROXIDE 3% 118 ML BOTTLE TP SCH ×2 (09:44→20:36)
[2020-01-04 11:15] VITALS: BP 136/63
[2020-01-04] MEDS: JEVITY 1.2 1000 ML LIQUID GT PRN (17:13)
[2020-01-04 20:05] VITALS: BP 119/51
[2020-01-04] MEDS: MULTIVIT, IRON, MIN NO. 8, FA TABLET GT SCH (20:49)
[2020-01-05] MEDS: JEVITY 1.2 1000 ML LIQUID GT PRN ×2 (04:17→22:11)
[2020-01-05] MEDS: PANTOPRAZOLE ORAL SUSPENSION 40 MG SUSPDR.PKT GT SCH (05:10)
[2020-01-05 08:05] VITALS: BP 119/75
[2020-01-05] MEDS: COD LIVER OIL/ZINC OXIDE OINT 113 GM TUBE TP SCH ×2 (08:24→20:34)
[2020-01-05] MEDS: DULOXETINE 30 MG CAPSULE.DR GT SCH (08:24)
[2020-01-05] MEDS: VITAMINS A AND D OINT TP SCH (08:24)
[2020-01-05] MEDS: PROTEIN SUPPLEMENT (PROSTAT) 30 ML LIQUID GT SCH ×2 (08:24→17:23)
[2020-01-05] MEDS: FINASTERIDE 5 MG TABLET GT SCH (08:24)
[2020-01-05] MEDS: HYDROGEN PEROXIDE 3% 118 ML BOTTLE TP SCH ×2 (09:00→20:34)
[2020-01-05 15:42] LABS: BASOPHILS % (AUTO) 0.8 % (0.0-2.0); EOSINOPHILS # (AUTO) 0.3 K/uL (0.0-0.7); EOSINOPHILS % (AUTO) 5.1 % (0.0-7.0); HEMATOCRIT 43.1 % (36.7-47.1); HEMOGLOBIN 14.3 g/dL (12.5-16.3); LYMPHOCYTES # (AUTO) 1.7 K/uL (20.0-40.0); LYMPHOCYTES % (AUTO) 28.8 % (20.5-51.5); MEAN CORPUSCULAR HGB CONC 33 g/dL (32.5-36.3); MEAN CORPUSCULAR VOLUME 87.7 fL (73.0-96.2); MONOCYTES # (AUTO) 0.4 K/uL (2.0-10.0); MONOCYTES % (AUTO) 7.1 % (0.0-11.0); NEUTROPHILS # (AUTO) 3.4 K/uL (1.8-8.9); NEUTROPHILS % (AUTO) 58.2 % (38.5-71.5); PLATELET COUNT (AUTO) 183 K/uL (152-348); RED BLOOD CELL COUNT(AUTO) 4.92 MIL/uL (4.06-5.63); WHITE BLOOD COUNT (AUTO) 5.8 K/uL (3.6-10.2)
[2020-01-05 15:50] LABS: CREATININE 0.7 mg/dL (0.6-1.3); POTASSIUM 4.3 mmol/L (3.5-5.1)
[2020-01-05 20:07] VITALS: BP 127/60
[2020-01-05] MEDS: MULTIVIT, IRON, MIN NO. 8, FA TABLET GT SCH (20:33)
[2020-01-06] MEDS: PANTOPRAZOLE ORAL SUSPENSION 40 MG SUSPDR.PKT GT SCH (05:18)
[2020-01-06 07:04] LABS: CREATININE 0.6 mg/dL (0.6-1.3); MAGNESIUM 2.1 mg/dL (1.8-2.4); PHOSPHOROUS 3.3 mg/dL (2.5-4.9); POTASSIUM 4.2 mmol/L (3.5-5.1)
[2020-01-06 07:06] LABS: BASOPHILS % (AUTO) 0.4 % (0.0-2.0); EOSINOPHILS # (AUTO) 0.3 K/uL (0.0-0.7); HEMOGLOBIN 15.1 g/dL (12.5-16.3); LYMPHOCYTES # (AUTO) 1.5 K/uL (20.0-40.0)
[2020-01-06 07:23] LABS: EOSINOPHILS % (AUTO) 4.2 % (0.0-7.0); HEMATOCRIT 44.9 % (36.7-47.1); LYMPHOCYTES % (AUTO) 20.3 % (20.5-51.5); MEAN CORPUSCULAR HEMOGLOBIN 29.5 uug (23.8-33.4); MEAN CORPUSCULAR HGB CONC 34 g/dL (32.5-36.3); MONOCYTES # (AUTO) 0.4 K/uL (2.0-10.0); MONOCYTES % (AUTO) 5.8 % (0.0-11.0); NEUTROPHILS # (AUTO) 5.2 K/uL (1.8-8.9); NEUTROPHILS % (AUTO) 69.3 % (38.5-71.5); PLATELET COUNT (AUTO) 167 K/uL (152-348)
[2020-01-06 07:24] LABS: WHITE BLOOD COUNT (AUTO) 7.5 K/uL (3.6-10.2)
[2020-01-06] MEDS: HYDROGEN PEROXIDE 3% 118 ML BOTTLE TP SCH ×2 (08:05→21:56)
[2020-01-06 08:30] VITALS: BP 119/73
[2020-01-06] MEDS: VITAMINS A AND D OINT TP SCH (08:49)
[2020-01-06] MEDS: FINASTERIDE 5 MG TABLET GT SCH (08:49)
[2020-01-06] MEDS: PROTEIN SUPPLEMENT (PROSTAT) 30 ML LIQUID GT SCH ×2 (08:49→17:31)
[2020-01-06] MEDS: DULOXETINE 30 MG CAPSULE.DR GT SCH (08:49)
[2020-01-06] MEDS: COD LIVER OIL/ZINC OXIDE OINT 113 GM TUBE TP SCH ×2 (08:49→20:39)
--- NOTE | 2020-01-06 14:05 | NUR ---
Pharmacy Update from Today's 01/06/20 IDT Meeting VS: Temp 98.6 HR 75 BP 127/60 LABS: (from 01/06/20) Wbc 7.5 H/H 15.1/44.9 Plt 167 Na 138 K 4.2 Cl 105 CO2 29 BUN/SCr 34/0.6 BS 110 Ca 9.5 phos 3.3 Mg 2.1 MEDICATION USE REVIEW: > Pt is not any anti-psych or anti-seizure medications > Pt on heparin 5000units q12hr daily for DVT Prophylaxis, CrCl 97.65 ml/min. Last plt 167 > Pt on Cymbalta 30mg daily for pain management, last CrCl 97.65 ml/min > Pt on protonix 40mg daily 11/03 for GI prophylaxis, possible GI upset per MD > Pt continued on finasteride 5mg daily for BPH > PRN MED USAGE: (Dec) Tylenol for pain/temp used x16 Zofran PRN N/V used x2 Artificial Tears used x2 Mylanta PRN used x0 [place] PRN used x7 Morphine PRN used x1 NEW ORDERS NOTED: > NA Patient was reviewed and discussed in detail with family in attendance. No medication issues or changes were noted per pharmacy or staff. No further recommendations at this time as remains stable on current regimen. Will continue to follow
--- NOTE | 2020-01-06 14:39 | NUR ---
INTERDISCIPLINARY PLAN OF CARE CONFERENCE was held today. Patient's Bobby was present at the meeting. Dr. Trujillo and the Interdisciplinary Team reviewed the current plan of care in detail. RN reported on patient's medical condition, and recent lab findings. See RN IDT conference notes. No major changes in condition were reported. SW informed patient's that patient is schedule for his annual teeth cleaning on January 20, and patient's expressed agreement. See all disciplines IDT notes and physician's progress notes for additional details. Bobby's questions were addressed by the IDT team, and Bobby expressed being content and satisfied with the ongoing plan of care.
[2020-01-06 19:41] VITALS: BP 116/55
[2020-01-06] MEDS: MULTIVIT, IRON, MIN NO. 8, FA TABLET GT SCH (20:39)
[2020-01-07] MEDS: JEVITY 1.2 1000 ML LIQUID GT PRN ×2 (04:00→20:42)
[2020-01-07] MEDS: PANTOPRAZOLE ORAL SUSPENSION 40 MG SUSPDR.PKT GT SCH (05:55)
[2020-01-07] MEDS: HYDROGEN PEROXIDE 3% 118 ML BOTTLE TP SCH ×2 (07:22→21:18)
[2020-01-07] MEDS: DULOXETINE 30 MG CAPSULE.DR GT SCH (08:05)
[2020-01-07] MEDS: COD LIVER OIL/ZINC OXIDE OINT 113 GM TUBE TP SCH ×2 (08:05→20:42)
[2020-01-07] MEDS: PROTEIN SUPPLEMENT (PROSTAT) 30 ML LIQUID GT SCH ×2 (08:05→17:16)
[2020-01-07] MEDS: VITAMINS A AND D OINT TP SCH (08:05)
[2020-01-07] MEDS: FINASTERIDE 5 MG TABLET GT SCH (08:05)
[2020-01-07 11:30] VITALS: BP 114/54
[2020-01-07 20:04] VITALS: BP 114/55
[2020-01-07] MEDS: MULTIVIT, IRON, MIN NO. 8, FA TABLET GT SCH (20:42)
[2020-01-08] MEDS: PANTOPRAZOLE ORAL SUSPENSION 40 MG SUSPDR.PKT GT SCH (05:47)
[2020-01-08] MEDS: DULOXETINE 30 MG CAPSULE.DR GT SCH (08:01)
[2020-01-08] MEDS: FINASTERIDE 5 MG TABLET GT SCH (08:01)
[2020-01-08] MEDS: VITAMINS A AND D OINT TP SCH (08:01)
[2020-01-08] MEDS: COD LIVER OIL/ZINC OXIDE OINT 113 GM TUBE TP SCH ×2 (08:01→21:26)
[2020-01-08] MEDS: PROTEIN SUPPLEMENT (PROSTAT) 30 ML LIQUID GT SCH ×2 (08:01→17:07)
[2020-01-08] MEDS: HYDROGEN PEROXIDE 3% 118 ML BOTTLE TP SCH ×2 (08:47→20:35)
[2020-01-08 12:01] VITALS: BP 124/63
--- NOTE | 2020-01-08 13:55 | NUR ---
SEEN BY DR. WIGGINS AND WITH NNO.
[2020-01-08] MEDS: JEVITY 1.2 1000 ML LIQUID GT PRN (14:30)
[2020-01-08 20:47] VITALS: BP 125/66
[2020-01-08] MEDS: MULTIVIT, IRON, MIN NO. 8, FA TABLET GT SCH (21:26)
[2020-01-09] MEDS: JEVITY 1.2 1000 ML LIQUID GT PRN ×2 (04:18→18:07)
[2020-01-09] MEDS: PANTOPRAZOLE ORAL SUSPENSION 40 MG SUSPDR.PKT GT SCH (06:11)
[2020-01-09 08:03] VITALS: BP 142/92
[2020-01-09] MEDS: FINASTERIDE 5 MG TABLET GT SCH (08:08)
[2020-01-09] MEDS: DULOXETINE 30 MG CAPSULE.DR GT SCH (08:08)
[2020-01-09] MEDS: COD LIVER OIL/ZINC OXIDE OINT 113 GM TUBE TP SCH ×2 (08:08→20:36)
[2020-01-09] MEDS: PROTEIN SUPPLEMENT (PROSTAT) 30 ML LIQUID GT SCH ×2 (08:08→17:00)
[2020-01-09] MEDS: VITAMINS A AND D OINT TP SCH (08:08)
[2020-01-09] MEDS: HYDROGEN PEROXIDE 3% 118 ML BOTTLE TP SCH ×2 (09:00→21:22)
[2020-01-09] MEDS: MULTIVIT, IRON, MIN NO. 8, FA TABLET GT SCH (20:36)
[2020-01-09 20:43] VITALS: BP 131/75
[2020-01-10] MEDS: PANTOPRAZOLE ORAL SUSPENSION 40 MG SUSPDR.PKT GT SCH (05:06)
[2020-01-10] MEDS: HYDROGEN PEROXIDE 3% 118 ML BOTTLE TP SCH ×2 (07:27→21:20)
[2020-01-10 08:03] VITALS: BP 141/80
[2020-01-10] MEDS: PROTEIN SUPPLEMENT (PROSTAT) 30 ML LIQUID GT SCH ×2 (08:34→17:39)
[2020-01-10] MEDS: VITAMINS A AND D OINT TP SCH (08:34)
[2020-01-10] MEDS: DULOXETINE 30 MG CAPSULE.DR GT SCH (08:34)
[2020-01-10] MEDS: COD LIVER OIL/ZINC OXIDE OINT 113 GM TUBE TP SCH ×2 (08:34→20:29)
[2020-01-10] MEDS: FINASTERIDE 5 MG TABLET GT SCH (08:34)
[2020-01-10] MEDS: JEVITY 1.2 1000 ML LIQUID GT PRN (11:17)
[2020-01-10] MEDS: MAG HYDROX/AL HYDROX/SIMETH 30 ML LIQUID UDC GT PRN ×2 (11:18→17:39)
[2020-01-10] MEDS: ONDANSETRON HCL 4 MG TABLET GT PRN (11:20)
[2020-01-10] MEDS: POLYVINYL ALCOHOL OPHT DROPS 15 ML BOTTLE EACHEYE PRN (11:44)
[2020-01-10] MEDS: MULTIVIT, IRON, MIN NO. 8, FA TABLET GT SCH (20:29)
[2020-01-10 20:46] VITALS: BP 123/74
--- NOTE | 2020-01-11 02:00 | NUR ---
DIRECT SUPPORT PROFESSIONAL CAREGIVER reported that patient has something on his scrotal area. On assessment, noted with multiple skin growth on the left scrotum area extending to his penile shaft, skin is intact and patient appears to be in pain when I touch his scrotal area, handled very gently. Kept skin clean and dry, will continue monitor. Addendum: 01/11/20 at 0413 by KT PARRA RN Also noted with brownish secretions, trach is intact and patent, no signs of any distress noted, 02 sat is 98%, Kept clean and comfortable, will continue monitor.
[2020-01-11] MEDS: MAG HYDROX/AL HYDROX/SIMETH 30 ML LIQUID UDC GT PRN (03:18)
[2020-01-11] MEDS: JEVITY 1.2 1000 ML LIQUID GT PRN (04:11)
[2020-01-11] MEDS: PANTOPRAZOLE ORAL SUSPENSION 40 MG SUSPDR.PKT GT SCH (05:15)
[2020-01-11 08:03] VITALS: BP 125/61
[2020-01-11] MEDS: HYDROGEN PEROXIDE 3% 118 ML BOTTLE TP SCH ×2 (08:44→20:54)
[2020-01-11] MEDS: FINASTERIDE 5 MG TABLET GT SCH (09:23)
[2020-01-11] MEDS: PROTEIN SUPPLEMENT (PROSTAT) 30 ML LIQUID GT SCH ×2 (09:23→17:08)
[2020-01-11] MEDS: VITAMINS A AND D OINT TP SCH (09:23)
[2020-01-11] MEDS: DULOXETINE 30 MG CAPSULE.DR GT SCH (09:23)
[2020-01-11] MEDS: COD LIVER OIL/ZINC OXIDE OINT 113 GM TUBE TP SCH ×2 (09:23→20:30)
[2020-01-11 20:16] VITALS: BP 125/59
[2020-01-11] MEDS: MULTIVIT, IRON, MIN NO. 8, FA TABLET GT SCH (20:30)
--- NOTE | 2020-01-12 00:53 | NUR ---
Patient is afebrile, no respiratory distress noted, suctioned with large pale yellow secretions, HOB elevated, on aspiration precaution, kept clean and comfortable.
[2020-01-12] MEDS: PANTOPRAZOLE ORAL SUSPENSION 40 MG SUSPDR.PKT GT SCH (05:13)
[2020-01-12 08:05] VITALS: BP 118/78
[2020-01-12] MEDS: DULOXETINE 30 MG CAPSULE.DR GT SCH (09:06)
[2020-01-12] MEDS: COD LIVER OIL/ZINC OXIDE OINT 113 GM TUBE TP SCH ×2 (09:07→21:31)
[2020-01-12] MEDS: FINASTERIDE 5 MG TABLET GT SCH (09:07)
[2020-01-12] MEDS: PROTEIN SUPPLEMENT (PROSTAT) 30 ML LIQUID GT SCH ×2 (09:07→17:56)
[2020-01-12] MEDS: VITAMINS A AND D OINT TP SCH (09:08)
[2020-01-12] MEDS: HYDROGEN PEROXIDE 3% 118 ML BOTTLE TP SCH ×2 (09:41→21:06)
[2020-01-12] MEDS: JEVITY 1.2 1000 ML LIQUID GT PRN (11:14)
--- NOTE | 2020-01-12 11:30 | NUR ---
SEEN AND EXAMINED BY CLAYTON SEE.
--- NOTE | 2020-01-12 12:00 | NUR ---
NEW ORDER CARRIED OUT FROM CALYTON Barclay FOR OFFICE ELECTRICIAN CONSULT TO F/U PENILE SKIN LESION.
[2020-01-12 20:13] VITALS: BP 140/82
[2020-01-12] MEDS: ACETAMINOPHEN 650 MG/20 ML UDC- SA PATIENTS-PAIN ONLY GT PRN (21:29)
[2020-01-12] MEDS: MULTIVIT, IRON, MIN NO. 8, FA TABLET GT SCH (21:31)
[2020-01-13] MEDS: JEVITY 1.2 1000 ML LIQUID GT PRN ×2 (04:30→23:00)
[2020-01-13] MEDS: PANTOPRAZOLE ORAL SUSPENSION 40 MG SUSPDR.PKT GT SCH (05:54)
[2020-01-13 08:05] VITALS: BP 118/64
[2020-01-13] MEDS: DULOXETINE 30 MG CAPSULE.DR GT SCH (08:36)
[2020-01-13] MEDS: FINASTERIDE 5 MG TABLET GT SCH (08:36)
[2020-01-13] MEDS: PROTEIN SUPPLEMENT (PROSTAT) 30 ML LIQUID GT SCH ×2 (08:37→17:24)
[2020-01-13] MEDS: COD LIVER OIL/ZINC OXIDE OINT 113 GM TUBE TP SCH ×2 (08:49→20:38)
[2020-01-13] MEDS: VITAMINS A AND D OINT TP SCH (08:50)
[2020-01-13] MEDS: HYDROGEN PEROXIDE 3% 118 ML BOTTLE TP SCH ×2 (09:43→20:46)
[2020-01-13 20:19] VITALS: BP 134/82
[2020-01-13] MEDS: MULTIVIT, IRON, MIN NO. 8, FA TABLET GT SCH (20:37)
[2020-01-13] MEDS: HEPARIN SODIUM,PORCINE 5,000 UNITS/ML VIAL SQ SCH (21:00)
[2020-01-14] MEDS: PANTOPRAZOLE ORAL SUSPENSION 40 MG SUSPDR.PKT GT SCH (05:59)
[2020-01-14] MEDS: ACETAMINOPHEN 650 MG/20 ML UDC- SA PATIENTS-PAIN ONLY GT PRN ×2 (06:01→14:57)
[2020-01-14] MEDS: HYDROGEN PEROXIDE 3% 118 ML BOTTLE TP SCH ×2 (07:31→20:43)
[2020-01-14 08:05] VITALS: BP 121/71
[2020-01-14] MEDS: FINASTERIDE 5 MG TABLET GT SCH (08:22)
[2020-01-14] MEDS: DULOXETINE 30 MG CAPSULE.DR GT SCH (08:22)
[2020-01-14] MEDS: PROTEIN SUPPLEMENT (PROSTAT) 30 ML LIQUID GT SCH ×2 (08:24→17:23)
[2020-01-14] MEDS: HEPARIN SODIUM,PORCINE 5,000 UNITS/ML VIAL SQ SCH (08:31)
[2020-01-14] MEDS: COD LIVER OIL/ZINC OXIDE OINT 113 GM TUBE TP SCH ×2 (08:32→20:59)
[2020-01-14] MEDS: VITAMINS A AND D OINT TP SCH (08:32)
[2020-01-14] MEDS: POLYVINYL ALCOHOL OPHT DROPS 15 ML BOTTLE EACHEYE PRN (12:51)
--- NOTE | 2020-01-14 15:30 | NUR ---
seen and examined by Dr Mak associate creative director with new orders noted and carried out.
--- NOTE | 2020-01-14 15:35 | NUR ---
Dr sandoval spoke to Dr Bethian is not necessary to keep the pt on isolation.
[2020-01-14] MEDS: JEVITY 1.2 1000 ML LIQUID GT PRN (17:33)
[2020-01-14] MEDS: MULTIVIT, IRON, MIN NO. 8, FA TABLET GT SCH (20:58)
[2020-01-15] MEDS: PANTOPRAZOLE ORAL SUSPENSION 40 MG SUSPDR.PKT GT SCH (06:19)
[2020-01-15 08:30] VITALS: BP 136/68
[2020-01-15] MEDS: FINASTERIDE 5 MG TABLET GT SCH (08:51)
[2020-01-15] MEDS: COD LIVER OIL/ZINC OXIDE OINT 113 GM TUBE TP SCH ×2 (08:51→20:53)
[2020-01-15] MEDS: DULOXETINE 30 MG CAPSULE.DR GT SCH (08:51)
[2020-01-15] MEDS: PROTEIN SUPPLEMENT (PROSTAT) 30 ML LIQUID GT SCH ×2 (08:51→16:24)
[2020-01-15] MEDS: VITAMINS A AND D OINT TP SCH (08:54)
[2020-01-15] MEDS: FAMCICLOVIR 500 MG TABLET GT SCH ×2 (08:55→20:51)
[2020-01-15] MEDS: HYDROGEN PEROXIDE 3% 118 ML BOTTLE TP SCH ×2 (09:00→21:20)
[2020-01-15] MEDS: MUPIROCIN 2% OINT 22 GM TUBE TP SCH ×2 (11:06→16:24)
[2020-01-15] MEDS: JEVITY 1.2 1000 ML LIQUID GT PRN (11:07)
--- NOTE | 2020-01-15 12:08 | NUR ---
MARIETTA received a phone call from Harry at Dr. Osullivan's office [phone], who stated that patient's dental appointment for January 20 has been rescheduled for February 17.
[2020-01-15 20:25] VITALS: BP 143/66
[2020-01-15] MEDS: MULTIVIT, IRON, MIN NO. 8, FA TABLET GT SCH (20:52)
[2020-01-16] MEDS: PANTOPRAZOLE ORAL SUSPENSION 40 MG SUSPDR.PKT GT SCH (05:40)
[2020-01-16] MEDS: DULOXETINE 30 MG CAPSULE.DR GT SCH (08:30)
[2020-01-16] MEDS: FINASTERIDE 5 MG TABLET GT SCH (08:30)
[2020-01-16] MEDS: FAMCICLOVIR 500 MG TABLET GT SCH ×2 (08:30→20:04)
[2020-01-16] MEDS: MUPIROCIN 2% OINT 22 GM TUBE TP SCH ×2 (08:31→17:55)
[2020-01-16] MEDS: COD LIVER OIL/ZINC OXIDE OINT 113 GM TUBE TP SCH ×2 (08:31→20:04)
[2020-01-16] MEDS: PROTEIN SUPPLEMENT (PROSTAT) 30 ML LIQUID GT SCH ×2 (08:31→17:55)
[2020-01-16] MEDS: VITAMINS A AND D OINT TP SCH (08:31)
[2020-01-16] MEDS: HYDROGEN PEROXIDE 3% 118 ML BOTTLE TP SCH ×2 (09:00→20:04)
[2020-01-16 11:25] VITALS: BP 133/79
[2020-01-16] MEDS: JEVITY 1.2 1000 ML LIQUID GT PRN (18:39)
--- NOTE | 2020-01-16 18:56 | NUR ---
This SW spoke with patient's Bobby [phone] and informed her that per CDC and [facility] decision to minimize the risk of subacute residents becoming sick with the COVID-19 virus, visitation to all LTC facilities will be suspended, effective immediately, and until further notice. Bobby expressed understanding.
[2020-01-16] MEDS: MULTIVIT, IRON, MIN NO. 8, FA TABLET GT SCH (20:04)
[2020-01-16 20:14] VITALS: BP 108/69
[2020-01-17] MEDS: HYDROCODONE/APAP 10-325 MG TABLET GT PRN (00:59)
[2020-01-17] MEDS: PANTOPRAZOLE ORAL SUSPENSION 40 MG SUSPDR.PKT GT SCH (05:12)
--- NOTE | 2020-01-17 08:10 | NUR ---
Resident on close observation temp 99.2,no respiratory distress noted,oral and trach suction done as ordered.
[2020-01-17] MEDS: FAMCICLOVIR 500 MG TABLET GT SCH ×2 (09:09→21:33)
[2020-01-17] MEDS: FINASTERIDE 5 MG TABLET GT SCH (09:09)
[2020-01-17] MEDS: DULOXETINE 30 MG CAPSULE.DR GT SCH (09:09)
[2020-01-17] MEDS: PROTEIN SUPPLEMENT (PROSTAT) 30 ML LIQUID GT SCH ×2 (09:10→17:34)
[2020-01-17] MEDS: COD LIVER OIL/ZINC OXIDE OINT 113 GM TUBE TP SCH ×2 (09:11→21:33)
[2020-01-17] MEDS: VITAMINS A AND D OINT TP SCH (09:11)
[2020-01-17] MEDS: MUPIROCIN 2% OINT 22 GM TUBE TP SCH ×2 (09:11→17:35)
[2020-01-17] MEDS: JEVITY 1.2 1000 ML LIQUID GT PRN (09:13)
[2020-01-17] MEDS: HYDROGEN PEROXIDE 3% 118 ML BOTTLE TP SCH ×2 (09:15→21:40)
[2020-01-17 12:36] VITALS: BP 154/81
[2020-01-17 19:49] VITALS: BP 104/40
[2020-01-17 20:37] VITALS: BP 111/59
[2020-01-17] MEDS: MULTIVIT, IRON, MIN NO. 8, FA TABLET GT SCH (21:33)
--- NOTE | 2020-01-17 22:01 | NUR ---
Patient is afebrile, no respiratory distress noted, remains on Famvir via GT for Genital Herpes, and on Bactroban cream , no adverse reactions noted, good katherine care rendered, kept clean and comfortable.
[2020-01-18] MEDS: JEVITY 1.2 1000 ML LIQUID GT PRN ×2 (02:26→16:50)
[2020-01-18] MEDS: PANTOPRAZOLE ORAL SUSPENSION 40 MG SUSPDR.PKT GT SCH (05:45)
[2020-01-18 08:05] VITALS: BP 123/66
[2020-01-18] MEDS: HYDROGEN PEROXIDE 3% 118 ML BOTTLE TP SCH ×2 (09:05→20:57)
[2020-01-18] MEDS: FINASTERIDE 5 MG TABLET GT SCH (09:16)
[2020-01-18] MEDS: FAMCICLOVIR 500 MG TABLET GT SCH ×2 (09:16→20:43)
[2020-01-18] MEDS: DULOXETINE 30 MG CAPSULE.DR GT SCH (09:16)
[2020-01-18] MEDS: PROTEIN SUPPLEMENT (PROSTAT) 30 ML LIQUID GT SCH ×2 (09:17→17:37)
[2020-01-18] MEDS: VITAMINS A AND D OINT TP SCH (09:18)
[2020-01-18] MEDS: MUPIROCIN 2% OINT 22 GM TUBE TP SCH ×2 (09:18→17:37)
[2020-01-18] MEDS: COD LIVER OIL/ZINC OXIDE OINT 113 GM TUBE TP SCH ×2 (09:18→20:43)
[2020-01-18] MEDS: ACETAMINOPHEN 650 MG/20 ML UDC- SA PATIENTS-PAIN ONLY GT PRN ×2 (09:20→20:44)
--- NOTE | 2020-01-18 16:44 | NUR ---
Afebrile temperature 98.3,no respiratory distress noted,suctioned as needed,enteral feeding tolerated well,no gastric residual noted.Continue on tx for genital herpes.
[2020-01-18 20:30] VITALS: BP 138/72
[2020-01-18] MEDS: MULTIVIT, IRON, MIN NO. 8, FA TABLET GT SCH (20:43)
--- NOTE | 2020-01-18 21:04 | NUR ---
Afebrile, temperature is 97.5 Fahrenheit, trach is intact and patent, 02 sat is 97%, no respiratory distress noted, kept clean and comfortable. Addendum: 01/19/20 at 0027 by KT PARRA RN On Famvir for genital herpes, no adverse reactions noted, on Bactroban ointment for genital herpes, good skin care done, remains on contact isolation precaution, kept clean and comfortable.
[2020-01-19] MEDS: PANTOPRAZOLE ORAL SUSPENSION 40 MG SUSPDR.PKT GT SCH (06:02)
[2020-01-19 08:05] VITALS: BP 131/77
[2020-01-19] MEDS: FAMCICLOVIR 500 MG TABLET GT SCH ×2 (08:38→21:41)
[2020-01-19] MEDS: FINASTERIDE 5 MG TABLET GT SCH (08:38)
[2020-01-19] MEDS: PROTEIN SUPPLEMENT (PROSTAT) 30 ML LIQUID GT SCH ×2 (08:38→17:09)
[2020-01-19] MEDS: DULOXETINE 30 MG CAPSULE.DR GT SCH (08:40)
[2020-01-19] MEDS: COD LIVER OIL/ZINC OXIDE OINT 113 GM TUBE TP SCH ×2 (08:40→21:41)
[2020-01-19] MEDS: MUPIROCIN 2% OINT 22 GM TUBE TP SCH (08:40)
[2020-01-19] MEDS: VITAMINS A AND D OINT TP SCH (08:41)
[2020-01-19] MEDS: HYDROGEN PEROXIDE 3% 118 ML BOTTLE TP SCH ×2 (09:37→20:53)
[2020-01-19] MEDS: JEVITY 1.2 1000 ML LIQUID GT PRN (10:46)
--- NOTE | 2020-01-19 14:47 | NUR ---
Patient stable, no acute respiratory distress noted, repositioned q2hrs for comfort.
[2020-01-19 20:08] VITALS: BP 113/51
--- NOTE | 2020-01-19 21:38 | NUR ---
Temperature is 98.6, no signs of any respiratory distress noted,02 sat is 97%, patient is stable, turned and repositioned, kept clean and comfortable.
[2020-01-19] MEDS: MULTIVIT, IRON, MIN NO. 8, FA TABLET GT SCH (21:41)
[2020-01-19] MEDS: ONDANSETRON HCL 4 MG TABLET GT PRN (21:42)
[2020-01-20] MEDS: JEVITY 1.2 1000 ML LIQUID GT PRN ×2 (03:07→17:53)
[2020-01-20] MEDS: PANTOPRAZOLE ORAL SUSPENSION 40 MG SUSPDR.PKT GT SCH (06:27)
[2020-01-20 08:05] VITALS: BP 109/53
[2020-01-20] MEDS: FINASTERIDE 5 MG TABLET GT SCH (08:20)
[2020-01-20] MEDS: PROTEIN SUPPLEMENT (PROSTAT) 30 ML LIQUID GT SCH ×2 (08:20→17:52)
[2020-01-20] MEDS: DULOXETINE 30 MG CAPSULE.DR GT SCH (08:20)
[2020-01-20] MEDS: COD LIVER OIL/ZINC OXIDE OINT 113 GM TUBE TP SCH ×2 (08:21→21:27)
[2020-01-20] MEDS: VITAMINS A AND D OINT TP SCH (08:21)
[2020-01-20 08:22] LABS: BASOPHILS % (AUTO) 0.6 % (0.0-2.0); EOSINOPHILS # (AUTO) 0.2 K/uL (0.0-0.7); EOSINOPHILS % (AUTO) 5.1 % (0.0-7.0); HEMATOCRIT 38.8 % (36.7-47.1); HEMOGLOBIN 13.2 g/dL (12.5-16.3); LYMPHOCYTES # (AUTO) 1.5 K/uL (20.0-40.0); LYMPHOCYTES % (AUTO) 33.8 % (20.5-51.5); MEAN CORPUSCULAR HEMOGLOBIN 29.5 uug (23.8-33.4); MEAN CORPUSCULAR HGB CONC 34 g/dL (32.5-36.3); MONOCYTES # (AUTO) 0.3 K/uL (2.0-10.0); MONOCYTES % (AUTO) 7.5 % (0.0-11.0); NEUTROPHILS # (AUTO) 2.4 K/uL (1.8-8.9); PLATELET COUNT (AUTO) 200 K/uL (152-348); RED BLOOD CELL COUNT(AUTO) 4.46 MIL/uL (4.06-5.63); WHITE BLOOD COUNT (AUTO) 4.5 K/uL (3.6-10.2)
[2020-01-20] MEDS: HYDROGEN PEROXIDE 3% 118 ML BOTTLE TP SCH ×2 (08:22→20:52)
[2020-01-20 08:39] LABS: CREATININE 0.7 mg/dL (0.6-1.3); MAGNESIUM 2.1 mg/dL (1.8-2.4); PHOSPHOROUS 3.6 mg/dL (2.5-4.9); POTASSIUM 4.3 mmol/L (3.5-5.1)
--- NOTE | 2020-01-20 18:16 | NUR ---
No acute respiratory distress ,no increase secretions,afebrile temperature 98.8.
[2020-01-20 19:44] VITALS: BP 130/64
[2020-01-20] MEDS: MULTIVIT, IRON, MIN NO. 8, FA TABLET GT SCH (21:27)
[2020-01-21] MEDS: ONDANSETRON HCL 4 MG TABLET GT PRN (04:30)
[2020-01-21] MEDS: PANTOPRAZOLE ORAL SUSPENSION 40 MG SUSPDR.PKT GT SCH (05:39)
[2020-01-21 08:00] VITALS: BP 120/67
[2020-01-21] MEDS: COD LIVER OIL/ZINC OXIDE OINT 113 GM TUBE TP SCH ×2 (08:25→20:18)
[2020-01-21] MEDS: PROTEIN SUPPLEMENT (PROSTAT) 30 ML LIQUID GT SCH ×2 (08:25→17:33)
[2020-01-21] MEDS: DULOXETINE 30 MG CAPSULE.DR GT SCH (08:25)
[2020-01-21] MEDS: VITAMINS A AND D OINT TP SCH (08:25)
[2020-01-21] MEDS: FINASTERIDE 5 MG TABLET GT SCH (08:25)
[2020-01-21] MEDS: HYDROGEN PEROXIDE 3% 118 ML BOTTLE TP SCH ×2 (09:23→21:58)
[2020-01-21] MEDS: JEVITY 1.2 1000 ML LIQUID GT PRN (11:45)
--- NOTE | 2020-01-21 18:17 | NUR ---
In stable condition,no respiratory distress,trach connected to p mist ,suctioned as needed,afebrile temp 98.3.
[2020-01-21 19:46] VITALS: BP 125/67
[2020-01-21] MEDS: MULTIVIT, IRON, MIN NO. 8, FA TABLET GT SCH (20:18)
[2020-01-22] MEDS: JEVITY 1.2 1000 ML LIQUID GT PRN (05:30)
[2020-01-22] MEDS: PANTOPRAZOLE ORAL SUSPENSION 40 MG SUSPDR.PKT GT SCH (05:30)
[2020-01-22] MEDS: COD LIVER OIL/ZINC OXIDE OINT 113 GM TUBE TP SCH ×2 (08:34→20:51)
[2020-01-22] MEDS: DULOXETINE 30 MG CAPSULE.DR GT SCH (08:34)
[2020-01-22] MEDS: PROTEIN SUPPLEMENT (PROSTAT) 30 ML LIQUID GT SCH ×2 (08:34→17:07)
[2020-01-22] MEDS: FINASTERIDE 5 MG TABLET GT SCH (08:34)
[2020-01-22] MEDS: VITAMINS A AND D OINT TP SCH (08:35)
[2020-01-22] MEDS: HYDROGEN PEROXIDE 3% 118 ML BOTTLE TP SCH ×2 (09:10→21:35)
[2020-01-22] MEDS: MULTIVIT, IRON, MIN NO. 8, FA TABLET GT SCH (20:51)
[2020-01-22 20:56] VITALS: BP 118/54
[2020-01-23] MEDS: ACETAMINOPHEN 650 MG/20 ML UDC- SA PATIENTS-PAIN ONLY GT PRN ×2 (05:00→20:58)
[2020-01-23] MEDS: PANTOPRAZOLE ORAL SUSPENSION 40 MG SUSPDR.PKT GT SCH (06:08)
[2020-01-23] MEDS: FINASTERIDE 5 MG TABLET GT SCH (08:45)
[2020-01-23] MEDS: DULOXETINE 30 MG CAPSULE.DR GT SCH (08:45)
[2020-01-23] MEDS: VITAMINS A AND D OINT TP SCH (08:45)
[2020-01-23] MEDS: COD LIVER OIL/ZINC OXIDE OINT 113 GM TUBE TP SCH ×2 (08:45→20:57)
[2020-01-23] MEDS: PROTEIN SUPPLEMENT (PROSTAT) 30 ML LIQUID GT SCH ×2 (08:45→16:23)
[2020-01-23] MEDS: HYDROGEN PEROXIDE 3% 118 ML BOTTLE TP SCH ×2 (09:53→21:13)
[2020-01-23 11:29] VITALS: BP 124/78
[2020-01-23] MEDS: MULTIVIT, IRON, MIN NO. 8, FA TABLET GT SCH (20:57)
[2020-01-23 21:45] VITALS: BP 132/59
[2020-01-24] MEDS: JEVITY 1.2 1000 ML LIQUID GT PRN (03:44)
[2020-01-24] MEDS: PANTOPRAZOLE ORAL SUSPENSION 40 MG SUSPDR.PKT GT SCH (05:46)
[2020-01-24] MEDS: PROTEIN SUPPLEMENT (PROSTAT) 30 ML LIQUID GT SCH ×2 (08:20→16:52)
[2020-01-24] MEDS: VITAMINS A AND D OINT TP SCH (08:20)
[2020-01-24] MEDS: FINASTERIDE 5 MG TABLET GT SCH (08:20)
[2020-01-24] MEDS: DULOXETINE 30 MG CAPSULE.DR GT SCH (08:20)
[2020-01-24] MEDS: COD LIVER OIL/ZINC OXIDE OINT 113 GM TUBE TP SCH ×2 (08:20→21:50)
[2020-01-24] MEDS: HYDROGEN PEROXIDE 3% 118 ML BOTTLE TP SCH ×2 (09:00→20:56)
[2020-01-24 21:29] VITALS: BP 118/64
[2020-01-24] MEDS: MULTIVIT, IRON, MIN NO. 8, FA TABLET GT SCH (21:49)
[2020-01-24] MEDS: ACETAMINOPHEN 650 MG/20 ML UDC- SA PATIENTS-PAIN ONLY GT PRN (21:51)
[2020-01-25] MEDS: PANTOPRAZOLE ORAL SUSPENSION 40 MG SUSPDR.PKT GT SCH (06:15)
[2020-01-25] MEDS: HYDROGEN PEROXIDE 3% 118 ML BOTTLE TP SCH ×2 (07:55→21:11)
[2020-01-25 08:04] VITALS: BP 115/58
[2020-01-25] MEDS: DULOXETINE 30 MG CAPSULE.DR GT SCH (09:03)
[2020-01-25] MEDS: FINASTERIDE 5 MG TABLET GT SCH (09:03)
[2020-01-25] MEDS: VITAMINS A AND D OINT TP SCH (09:04)
[2020-01-25] MEDS: PROTEIN SUPPLEMENT (PROSTAT) 30 ML LIQUID GT SCH ×2 (09:04→17:52)
[2020-01-25] MEDS: COD LIVER OIL/ZINC OXIDE OINT 113 GM TUBE TP SCH ×2 (09:04→20:22)
[2020-01-25] MEDS: JEVITY 1.2 1000 ML LIQUID GT PRN (12:29)
[2020-01-25] MEDS: ACETAMINOPHEN 650 MG/20 ML UDC- SA PATIENTS-PAIN ONLY GT PRN (20:22)
[2020-01-25] MEDS: MULTIVIT, IRON, MIN NO. 8, FA TABLET GT SCH (20:22)
[2020-01-25 22:47] VITALS: BP 134/71
[2020-01-25] MEDS: HYDROCODONE/APAP 10-325 MG TABLET GT PRN (23:14)
[2020-01-26] MEDS: JEVITY 1.2 1000 ML LIQUID GT PRN (03:31)
[2020-01-26] MEDS: PANTOPRAZOLE ORAL SUSPENSION 40 MG SUSPDR.PKT GT SCH (05:49)
[2020-01-26 08:06] VITALS: BP 123/55
[2020-01-26] MEDS: HYDROGEN PEROXIDE 3% 118 ML BOTTLE TP SCH ×2 (09:00→21:35)
[2020-01-26] MEDS: FINASTERIDE 5 MG TABLET GT SCH (09:31)
[2020-01-26] MEDS: PROTEIN SUPPLEMENT (PROSTAT) 30 ML LIQUID GT SCH ×2 (09:31→17:24)
[2020-01-26] MEDS: COD LIVER OIL/ZINC OXIDE OINT 113 GM TUBE TP SCH ×2 (09:31→21:34)
[2020-01-26] MEDS: VITAMINS A AND D OINT TP SCH (09:31)
[2020-01-26] MEDS: DULOXETINE 30 MG CAPSULE.DR GT SCH (09:31)
[2020-01-26] MEDS: ACETAMINOPHEN 650 MG/20 ML UDC- SA PATIENTS-PAIN ONLY GT PRN (15:06)
[2020-01-26 21:00] VITALS: BP 136/75
[2020-01-26] MEDS: MULTIVIT, IRON, MIN NO. 8, FA TABLET GT SCH (21:34)
[2020-01-27] MEDS: JEVITY 1.2 1000 ML LIQUID GT PRN (05:10)
[2020-01-27] MEDS: PANTOPRAZOLE ORAL SUSPENSION 40 MG SUSPDR.PKT GT SCH (05:10)
[2020-01-27 08:05] VITALS: BP 131/81
[2020-01-27] MEDS: HYDROGEN PEROXIDE 3% 118 ML BOTTLE TP SCH ×2 (09:00→20:55)
[2020-01-27] MEDS: PROTEIN SUPPLEMENT (PROSTAT) 30 ML LIQUID GT SCH ×2 (09:41→17:00)
[2020-01-27] MEDS: DULOXETINE 30 MG CAPSULE.DR GT SCH (09:41)
[2020-01-27] MEDS: FINASTERIDE 5 MG TABLET GT SCH (09:41)
[2020-01-27] MEDS: COD LIVER OIL/ZINC OXIDE OINT 113 GM TUBE TP SCH ×2 (09:41→21:00)
[2020-01-27] MEDS: VITAMINS A AND D OINT TP SCH (09:41)
[2020-01-27 20:16] VITALS: BP 138/65
[2020-01-27] MEDS: MULTIVIT, IRON, MIN NO. 8, FA TABLET GT SCH (21:00)
[2020-01-28] MEDS: JEVITY 1.2 1000 ML LIQUID GT PRN (00:45)
[2020-01-28] MEDS: PANTOPRAZOLE ORAL SUSPENSION 40 MG SUSPDR.PKT GT SCH (06:15)
[2020-01-28 08:09] VITALS: BP 122/47
[2020-01-28] MEDS: HYDROGEN PEROXIDE 3% 118 ML BOTTLE TP SCH ×2 (08:13→20:44)
[2020-01-28] MEDS: FINASTERIDE 5 MG TABLET GT SCH (09:17)
[2020-01-28] MEDS: DULOXETINE 30 MG CAPSULE.DR GT SCH (09:17)
[2020-01-28] MEDS: PROTEIN SUPPLEMENT (PROSTAT) 30 ML LIQUID GT SCH ×2 (09:17→17:00)
[2020-01-28] MEDS: VITAMINS A AND D OINT TP SCH (09:18)
[2020-01-28] MEDS: COD LIVER OIL/ZINC OXIDE OINT 113 GM TUBE TP SCH ×2 (09:18→21:00)
[2020-01-28 20:44] VITALS: BP 126/78
[2020-01-28] MEDS: MULTIVIT, IRON, MIN NO. 8, FA TABLET GT SCH (21:00)
[2020-01-29] MEDS: JEVITY 1.2 1000 ML LIQUID GT PRN (01:30)
[2020-01-29] MEDS: PANTOPRAZOLE ORAL SUSPENSION 40 MG SUSPDR.PKT GT SCH (05:54)
[2020-01-29] MEDS: FINASTERIDE 5 MG TABLET GT SCH (08:53)
[2020-01-29] MEDS: DULOXETINE 30 MG CAPSULE.DR GT SCH (08:53)
[2020-01-29] MEDS: VITAMINS A AND D OINT TP SCH (08:54)
[2020-01-29] MEDS: COD LIVER OIL/ZINC OXIDE OINT 113 GM TUBE TP SCH ×2 (08:54→20:58)
[2020-01-29] MEDS: PROTEIN SUPPLEMENT (PROSTAT) 30 ML LIQUID GT SCH ×2 (08:54→17:47)
[2020-01-29] MEDS: HYDROGEN PEROXIDE 3% 118 ML BOTTLE TP SCH ×2 (09:00→20:43)
[2020-01-29 10:53] VITALS: BP 128/80
[2020-01-29 20:31] VITALS: BP 135/71
[2020-01-29] MEDS: MULTIVIT, IRON, MIN NO. 8, FA TABLET GT SCH (20:58)
[2020-01-30] MEDS: JEVITY 1.2 1000 ML LIQUID GT PRN (03:30)
[2020-01-30] MEDS: PANTOPRAZOLE ORAL SUSPENSION 40 MG SUSPDR.PKT GT SCH (05:43)
[2020-01-30 08:03] VITALS: BP 137/55
[2020-01-30] MEDS: FINASTERIDE 5 MG TABLET GT SCH (08:11)
[2020-01-30] MEDS: DULOXETINE 30 MG CAPSULE.DR GT SCH (08:11)
[2020-01-30] MEDS: PROTEIN SUPPLEMENT (PROSTAT) 30 ML LIQUID GT SCH ×2 (08:12→17:39)
[2020-01-30] MEDS: COD LIVER OIL/ZINC OXIDE OINT 113 GM TUBE TP SCH ×2 (08:12→20:30)
[2020-01-30] MEDS: VITAMINS A AND D OINT TP SCH (08:13)
[2020-01-30] MEDS: HYDROGEN PEROXIDE 3% 118 ML BOTTLE TP SCH ×2 (09:00→21:04)
[2020-01-30 20:08] VITALS: BP 120/65
[2020-01-30] MEDS: MULTIVIT, IRON, MIN NO. 8, FA TABLET GT SCH (20:30)
[2020-01-31] MEDS: PANTOPRAZOLE ORAL SUSPENSION 40 MG SUSPDR.PKT GT SCH (06:15)
[2020-01-31] MEDS: HYDROGEN PEROXIDE 3% 118 ML BOTTLE TP SCH ×2 (07:20→21:40)
[2020-01-31 08:00] VITALS: BP 106/65
[2020-01-31] MEDS: DULOXETINE 30 MG CAPSULE.DR GT SCH (09:22)
[2020-01-31] MEDS: PROTEIN SUPPLEMENT (PROSTAT) 30 ML LIQUID GT SCH ×2 (09:22→17:18)
[2020-01-31] MEDS: FINASTERIDE 5 MG TABLET GT SCH (09:22)
[2020-01-31] MEDS: JEVITY 1.2 1000 ML LIQUID GT PRN (09:22)
[2020-01-31] MEDS: COD LIVER OIL/ZINC OXIDE OINT 113 GM TUBE TP SCH ×2 (09:24→20:33)
[2020-01-31] MEDS: VITAMINS A AND D OINT TP SCH (09:24)
[2020-01-31] MEDS: ONDANSETRON HCL 4 MG TABLET GT PRN (09:26)
--- NOTE | 2020-01-31 10:00 | NUR ---
Seen and examined by Dr Donald ,no new orders noted.
[2020-01-31] MEDS: ACETAMINOPHEN 650 MG/20 ML UDC- SA PATIENTS-PAIN ONLY GT PRN (17:20)
[2020-01-31 20:33] VITALS: BP 116/63
[2020-01-31] MEDS: MULTIVIT, IRON, MIN NO. 8, FA TABLET GT SCH (20:33)
[2020-02-01] MEDS: JEVITY 1.2 1000 ML LIQUID GT PRN (02:45)
[2020-02-01] MEDS: PANTOPRAZOLE ORAL SUSPENSION 40 MG SUSPDR.PKT GT SCH (05:11)
[2020-02-01 08:00] VITALS: BP 123/68
[2020-02-01] MEDS: COD LIVER OIL/ZINC OXIDE OINT 113 GM TUBE TP SCH ×2 (08:16→20:39)
[2020-02-01] MEDS: DULOXETINE 30 MG CAPSULE.DR GT SCH (08:16)
[2020-02-01] MEDS: PROTEIN SUPPLEMENT (PROSTAT) 30 ML LIQUID GT SCH ×2 (08:16→17:22)
[2020-02-01] MEDS: FINASTERIDE 5 MG TABLET GT SCH (08:16)
[2020-02-01] MEDS: VITAMINS A AND D OINT TP SCH (08:16)
[2020-02-01] MEDS: HYDROGEN PEROXIDE 3% 118 ML BOTTLE TP SCH ×2 (08:27→20:26)
[2020-02-01 20:09] VITALS: BP 144/86
[2020-02-01] MEDS: MULTIVIT, IRON, MIN NO. 8, FA TABLET GT SCH (20:39)
[2020-02-02] MEDS: JEVITY 1.2 1000 ML LIQUID GT PRN (02:15)
[2020-02-02] MEDS: PANTOPRAZOLE ORAL SUSPENSION 40 MG SUSPDR.PKT GT SCH (05:36)
[2020-02-02 08:00] VITALS: BP 118/51
[2020-02-02] MEDS: FINASTERIDE 5 MG TABLET GT SCH (08:44)
[2020-02-02] MEDS: PROTEIN SUPPLEMENT (PROSTAT) 30 ML LIQUID GT SCH ×2 (08:44→17:09)
[2020-02-02] MEDS: DULOXETINE 30 MG CAPSULE.DR GT SCH (08:44)
[2020-02-02] MEDS: VITAMINS A AND D OINT TP SCH (08:45)
[2020-02-02] MEDS: COD LIVER OIL/ZINC OXIDE OINT 113 GM TUBE TP SCH ×2 (08:45→21:00)
[2020-02-02] MEDS: HYDROGEN PEROXIDE 3% 118 ML BOTTLE TP SCH ×2 (09:34→20:52)
--- NOTE | 2020-02-02 12:02 | NUR ---
Seen by Ellen Owens with no new orders.
[2020-02-02 20:00] VITALS: BP 128/74
[2020-02-02] MEDS: MULTIVIT, IRON, MIN NO. 8, FA TABLET GT SCH (21:00)
[2020-02-03] MEDS: PANTOPRAZOLE ORAL SUSPENSION 40 MG SUSPDR.PKT GT SCH (05:48)
[2020-02-03] MEDS: JEVITY 1.2 1000 ML LIQUID GT PRN ×2 (05:51→21:55)
[2020-02-03 08:00] VITALS: BP 123/54
[2020-02-03] MEDS: FINASTERIDE 5 MG TABLET GT SCH (08:54)
[2020-02-03] MEDS: PROTEIN SUPPLEMENT (PROSTAT) 30 ML LIQUID GT SCH ×2 (08:54→16:39)
[2020-02-03] MEDS: DULOXETINE 30 MG CAPSULE.DR GT SCH (08:54)
[2020-02-03] MEDS: COD LIVER OIL/ZINC OXIDE OINT 113 GM TUBE TP SCH ×2 (08:54→21:55)
[2020-02-03] MEDS: VITAMINS A AND D OINT TP SCH (08:55)
[2020-02-03] MEDS: HYDROGEN PEROXIDE 3% 118 ML BOTTLE TP SCH ×2 (09:32→21:51)
[2020-02-03 14:12] LABS: BASOPHILS % (AUTO) 0.5 % (0.0-2.0); EOSINOPHILS # (AUTO) 0.2 K/uL (0.0-0.7); EOSINOPHILS % (AUTO) 2.2 % (0.0-7.0); HEMATOCRIT 43.4 % (36.7-47.1); HEMOGLOBIN 14.6 g/dL (12.5-16.3); MEAN CORPUSCULAR HEMOGLOBIN 29.6 uug (23.8-33.4); MEAN CORPUSCULAR HGB CONC 34 g/dL (32.5-36.3); MEAN CORPUSCULAR VOLUME 88.3 fL (73.0-96.2); MONOCYTES # (AUTO) 0.5 K/uL (2.0-10.0); MONOCYTES % (AUTO) 6.2 % (0.0-11.0); NEUTROPHILS % (AUTO) 68.1 % (38.5-71.5); PLATELET COUNT (AUTO) 248 K/uL (152-348); RED BLOOD CELL COUNT(AUTO) 4.91 MIL/uL (4.06-5.63); WHITE BLOOD COUNT (AUTO) 8.7 K/uL (3.6-10.2)
[2020-02-03 14:25] LABS: BILIRUBIN,TOTAL 0.4 mg/dL (0.2-1.0); CREATININE 0.8 mg/dL (0.6-1.3); POTASSIUM 4.2 mmol/L (3.5-5.1); TOTAL PROTEIN, SERUM 7.6 g/dL (6.4-8.2)
--- NOTE | 2020-02-03 16:22 | NUR ---
This SW called patient's Bobby [phone] to check on how she was doing, and to see if she had any questions or concerns. Bobby expressed gratitude to this SW for checking in, and stated not having any concerns at this time. Bobby expressed gratitude to all the nurses for all the work they are doing to keep the patients well cared for and safe, and stated that she does not have any concerns because "I know he is in good hands with all of you". MARIETTA thanked Bobby for her feedback and kind words. MARIETTA also informed Bobby that per advisement from [facility], [facility], and CDC, visitation restrictions must continue to remain in place for all nursing home care facilities in order to protect the health and safety of residents and staff. Therefore [facility] will continue to restrict all visitations, until further notice. Bobby expressed understanding, and stated that although she misses her , she knows he is safe. Bobby thanked MARIETTA for her time.
[2020-02-03 21:12] VITALS: BP 122/73
[2020-02-03] MEDS: MULTIVIT, IRON, MIN NO. 8, FA TABLET GT SCH (21:54)
[2020-02-04] MEDS: PANTOPRAZOLE ORAL SUSPENSION 40 MG SUSPDR.PKT GT SCH (06:17)
[2020-02-04] MEDS: HYDROGEN PEROXIDE 3% 118 ML BOTTLE TP SCH ×2 (08:31→21:30)
[2020-02-04] MEDS: DULOXETINE 30 MG CAPSULE.DR GT SCH (08:43)
[2020-02-04] MEDS: FINASTERIDE 5 MG TABLET GT SCH (08:44)
[2020-02-04] MEDS: PROTEIN SUPPLEMENT (PROSTAT) 30 ML LIQUID GT SCH ×2 (08:44→16:57)
[2020-02-04] MEDS: COD LIVER OIL/ZINC OXIDE OINT 113 GM TUBE TP SCH ×2 (08:44→20:33)
[2020-02-04] MEDS: VITAMINS A AND D OINT TP SCH (08:44)
--- NOTE | 2020-02-04 14:00 | NUR ---
Wood Web Weaving Machine Operator care done by Dr Narayan.
[2020-02-04 20:11] VITALS: BP 122/50
[2020-02-04] MEDS: MULTIVIT, IRON, MIN NO. 8, FA TABLET GT SCH (20:33)
[2020-02-05] MEDS: PANTOPRAZOLE ORAL SUSPENSION 40 MG SUSPDR.PKT GT SCH (06:22)
[2020-02-05 08:00] VITALS: BP 110/62
[2020-02-05] MEDS: DULOXETINE 30 MG CAPSULE.DR GT SCH (08:21)
[2020-02-05] MEDS: FINASTERIDE 5 MG TABLET GT SCH (08:22)
[2020-02-05] MEDS: COD LIVER OIL/ZINC OXIDE OINT 113 GM TUBE TP SCH ×2 (08:22→20:33)
[2020-02-05] MEDS: PROTEIN SUPPLEMENT (PROSTAT) 30 ML LIQUID GT SCH ×2 (08:22→17:43)
[2020-02-05] MEDS: VITAMINS A AND D OINT TP SCH (08:22)
[2020-02-05] MEDS: HYDROGEN PEROXIDE 3% 118 ML BOTTLE TP SCH ×2 (09:10→21:00)
[2020-02-05 20:20] VITALS: BP 112/79
[2020-02-05] MEDS: MULTIVIT, IRON, MIN NO. 8, FA TABLET GT SCH (20:33)
[2020-02-06] MEDS: JEVITY 1.2 1000 ML LIQUID GT PRN ×2 (00:38→17:15)
[2020-02-06] MEDS: PANTOPRAZOLE ORAL SUSPENSION 40 MG SUSPDR.PKT GT SCH (06:19)
[2020-02-06 08:04] VITALS: BP 141/81
[2020-02-06] MEDS: DULOXETINE 30 MG CAPSULE.DR GT SCH (08:56)
[2020-02-06] MEDS: PROTEIN SUPPLEMENT (PROSTAT) 30 ML LIQUID GT SCH ×2 (08:58→17:14)
[2020-02-06] MEDS: COD LIVER OIL/ZINC OXIDE OINT 113 GM TUBE TP SCH ×2 (08:58→20:47)
[2020-02-06] MEDS: FINASTERIDE 5 MG TABLET GT SCH (08:58)
[2020-02-06] MEDS: HYDROGEN PEROXIDE 3% 118 ML BOTTLE TP SCH ×2 (09:00→20:47)
[2020-02-06] MEDS: VITAMINS A AND D OINT TP SCH (09:00)
--- NOTE | 2020-02-06 11:09 | NUR ---
PT. EVAL FOR EVAL FOR BOTH KNEES SPLINT.
[2020-02-06] MEDS: MULTIVIT, IRON, MIN NO. 8, FA TABLET GT SCH (20:46)
[2020-02-06 21:11] VITALS: BP 126/65
[2020-02-07] MEDS: PANTOPRAZOLE ORAL SUSPENSION 40 MG SUSPDR.PKT GT SCH (05:12)
[2020-02-07] MEDS: HYDROGEN PEROXIDE 3% 118 ML BOTTLE TP SCH ×2 (07:20→19:18)
[2020-02-07 08:03] VITALS: BP 146/79
[2020-02-07] MEDS: DULOXETINE 30 MG CAPSULE.DR GT SCH (08:52)
[2020-02-07] MEDS: FINASTERIDE 5 MG TABLET GT SCH (08:52)
[2020-02-07] MEDS: COD LIVER OIL/ZINC OXIDE OINT 113 GM TUBE TP SCH ×2 (08:53→21:11)
[2020-02-07] MEDS: VITAMINS A AND D OINT TP SCH (08:53)
[2020-02-07] MEDS: PROTEIN SUPPLEMENT (PROSTAT) 30 ML LIQUID GT SCH ×2 (08:53→17:54)
[2020-02-07 20:13] VITALS: BP 122/64
[2020-02-07] MEDS: MULTIVIT, IRON, MIN NO. 8, FA TABLET GT SCH (21:11)
[2020-02-08] MEDS: PANTOPRAZOLE ORAL SUSPENSION 40 MG SUSPDR.PKT GT SCH (05:19)
--- NOTE | 2020-02-08 07:04 | NUR ---
Patient is sleeping, trach is intact and patent, no bleeding from trach noted, suctioned with pale yellow secretions, afebrile, no signs of any distress, kept clean and comfortable, will continue monitor.
[2020-02-08 08:04] VITALS: BP 133/59
[2020-02-08] MEDS: HYDROGEN PEROXIDE 3% 118 ML BOTTLE TP SCH ×2 (09:17→20:19)
[2020-02-08] MEDS: DULOXETINE 30 MG CAPSULE.DR GT SCH (09:20)
[2020-02-08] MEDS: VITAMINS A AND D OINT TP SCH (09:21)
[2020-02-08] MEDS: PROTEIN SUPPLEMENT (PROSTAT) 30 ML LIQUID GT SCH ×2 (09:21→17:55)
[2020-02-08] MEDS: FINASTERIDE 5 MG TABLET GT SCH (09:21)
[2020-02-08] MEDS: COD LIVER OIL/ZINC OXIDE OINT 113 GM TUBE TP SCH ×2 (09:21→20:38)
[2020-02-08] MEDS: MULTIVIT, IRON, MIN NO. 8, FA TABLET GT SCH (20:38)
[2020-02-08 21:23] VITALS: BP 123/62
[2020-02-09] MEDS: JEVITY 1.2 1000 ML LIQUID GT PRN ×2 (02:12→18:37)
[2020-02-09] MEDS: PANTOPRAZOLE ORAL SUSPENSION 40 MG SUSPDR.PKT GT SCH (05:24)
[2020-02-09 08:30] VITALS: BP 120/69
[2020-02-09] MEDS: HYDROGEN PEROXIDE 3% 118 ML BOTTLE TP SCH ×2 (09:00→21:26)
[2020-02-09] MEDS: PROTEIN SUPPLEMENT (PROSTAT) 30 ML LIQUID GT SCH ×2 (09:23→18:00)
[2020-02-09] MEDS: FINASTERIDE 5 MG TABLET GT SCH (09:23)
[2020-02-09] MEDS: COD LIVER OIL/ZINC OXIDE OINT 113 GM TUBE TP SCH ×2 (09:24→21:38)
[2020-02-09] MEDS: VITAMINS A AND D OINT TP SCH (09:24)
--- NOTE | 2020-02-09 09:30 | NUR ---
SEEN BY DR. MARY Abraham AND WITH NNO.
[2020-02-09] MEDS: DULOXETINE 30 MG CAPSULE.DR GT SCH (09:33)
--- NOTE | 2020-02-09 10:50 | NUR ---
NEW ORDER WAS CARRIED OUT FROM DR. GUERIN RECOMMENDED BY PT.
--- NOTE | 2020-02-09 16:22 | NUR ---
NEW ORDER WAS CARRIED OUT FROM CLAYTON Barclay TO RESUME HEPARIN AND SHE ORDERED LABS FOR 02/16/20.(NO TRACHEAL BLEEDING OBSERVED)
[2020-02-09 20:55] VITALS: BP 151/82
[2020-02-09] MEDS: MULTIVIT, IRON, MIN NO. 8, FA TABLET GT SCH (21:38)
[2020-02-09] MEDS: HEPARIN SODIUM,PORCINE 5,000 UNITS/ML VIAL SQ SCH (21:54)
[2020-02-10] MEDS: PANTOPRAZOLE ORAL SUSPENSION 40 MG SUSPDR.PKT GT SCH (05:15)
[2020-02-10] MEDS: VITAMINS A AND D OINT TP SCH (09:34)
[2020-02-10] MEDS: COD LIVER OIL/ZINC OXIDE OINT 113 GM TUBE TP SCH ×2 (09:34→21:38)
[2020-02-10] MEDS: DULOXETINE 30 MG CAPSULE.DR GT SCH (09:35)
[2020-02-10] MEDS: PROTEIN SUPPLEMENT (PROSTAT) 30 ML LIQUID GT SCH ×2 (09:36→16:30)
[2020-02-10] MEDS: FINASTERIDE 5 MG TABLET GT SCH (09:36)
[2020-02-10] MEDS: HYDROGEN PEROXIDE 3% 118 ML BOTTLE TP SCH ×2 (09:39→21:04)
[2020-02-10] MEDS: HEPARIN SODIUM,PORCINE 5,000 UNITS/ML VIAL SQ SCH (09:39)
[2020-02-10 11:01] VITALS: BP 126/77
--- NOTE | 2020-02-10 13:30 | NUR ---
Pharmacy Update from Today's 02/10/20 IDT Meeting VS: Temp 98.6 HR 82 BP 127/60 LABS: (from 01/06/20) Wbc 7.5 H/H 15.1/44.9 Plt 167 Na 138 K 4.2 Cl 105 CO2 29 BUN/SCr 34/0.6 BS 110 Ca 9.5 phos 3.3 Mg 2.1 MEDICATION USE REVIEW: > Pt is not any anti-psych or anti-seizure medications > Pt previously on heparin, d/c'd for now as found with on and off minor trach bleeding > Pt on Cymbalta 30mg daily for pain management, last CrCl 75.1 ml/min > Pt on protonix 40mg daily 11/03 for GI prophylaxis, possible GI upset per MD > Pt continued on finasteride 5mg daily for BPH > PRN MED USAGE: (January) Tylenol for pain/temp used x11 Zofran PRN N/V used x4 Artificial Tears used x2 Mylanta PRN used x3 [place] PRN used x2 Morphine PRN used x0 NEW ORDERS NOTED: > Heparin restarted 02/08, however held again today d/t minor trach bleeding during trach care. D/c'd for now Patient was reviewed and discussed in detail with respiratory indicating minor trach bleeding noted during care. Rx reported that heparin was restarted 02/08 and therefore may be corresponding to whenever heparin is restarted. MD agreed and ordered to d/c. Heparin now d/c'd. No further rx recs at this time, pt remains otherwise stable. Will continue to follow
--- NOTE | 2020-02-10 16:03 | NUR ---
INTERDISCIPLINARY PLAN OF CARE CONFERENCE was held today. Patient's was unable to participate in the meeting. Dr. Trujillo and the Interdisciplinary Team reviewed the current plan of care in detail. RN reported on patient's current medical condition. See RN IDT conference notes. No major changes in condition were reported. Rehab reported that patient is being seen by physical therapy for splint management. See all disciplines IDT notes and physician's progress notes for additional details.
[2020-02-10 20:11] VITALS: BP 135/69
[2020-02-10] MEDS: MULTIVIT, IRON, MIN NO. 8, FA TABLET GT SCH (21:38)
[2020-02-11] MEDS: JEVITY 1.2 1000 ML LIQUID GT PRN (04:11)
[2020-02-11] MEDS: ACETAMINOPHEN 650 MG/20 ML UDC- SA PATIENTS-PAIN ONLY GT PRN (04:11)
[2020-02-11] MEDS: PANTOPRAZOLE ORAL SUSPENSION 40 MG SUSPDR.PKT GT SCH (06:14)
[2020-02-11] MEDS: PROTEIN SUPPLEMENT (PROSTAT) 30 ML LIQUID GT SCH ×2 (08:35→17:29)
[2020-02-11] MEDS: DULOXETINE 30 MG CAPSULE.DR GT SCH (08:35)
[2020-02-11] MEDS: FINASTERIDE 5 MG TABLET GT SCH (08:35)
[2020-02-11] MEDS: COD LIVER OIL/ZINC OXIDE OINT 113 GM TUBE TP SCH ×2 (08:35→21:10)
[2020-02-11] MEDS: VITAMINS A AND D OINT TP SCH (08:35)
[2020-02-11] MEDS: HYDROGEN PEROXIDE 3% 118 ML BOTTLE TP SCH ×2 (09:25→21:34)
[2020-02-11 10:35] VITALS: BP 110/63
--- NOTE | 2020-02-11 11:00 | NUR ---
Seen and examined by Dr Donald with no new orders noted.
[2020-02-11 20:09] VITALS: BP 129/68
[2020-02-11] MEDS: MULTIVIT, IRON, MIN NO. 8, FA TABLET GT SCH (21:10)
[2020-02-12] MEDS: PANTOPRAZOLE ORAL SUSPENSION 40 MG SUSPDR.PKT GT SCH (06:00)
[2020-02-12 08:00] VITALS: BP 119/60
[2020-02-12] MEDS: HYDROGEN PEROXIDE 3% 118 ML BOTTLE TP SCH ×2 (08:29→21:13)
[2020-02-12] MEDS: VITAMINS A AND D OINT TP SCH (08:41)
[2020-02-12] MEDS: PROTEIN SUPPLEMENT (PROSTAT) 30 ML LIQUID GT SCH ×2 (08:41→16:39)
[2020-02-12] MEDS: COD LIVER OIL/ZINC OXIDE OINT 113 GM TUBE TP SCH ×2 (08:41→21:00)
[2020-02-12] MEDS: DULOXETINE 30 MG CAPSULE.DR GT SCH (08:41)
[2020-02-12] MEDS: FINASTERIDE 5 MG TABLET GT SCH (08:41)
[2020-02-12 13:54] VITALS: BP 110/63
[2020-02-12 20:02] VITALS: BP 132/65
[2020-02-12] MEDS: MULTIVIT, IRON, MIN NO. 8, FA TABLET GT SCH (21:00)
[2020-02-13] MEDS: JEVITY 1.2 1000 ML LIQUID GT PRN (02:30)
[2020-02-13] MEDS: PANTOPRAZOLE ORAL SUSPENSION 40 MG SUSPDR.PKT GT SCH (06:10)
[2020-02-13 08:03] VITALS: BP 134/82
[2020-02-13] MEDS: DULOXETINE 30 MG CAPSULE.DR GT SCH (08:38)
[2020-02-13] MEDS: FINASTERIDE 5 MG TABLET GT SCH (08:38)
[2020-02-13] MEDS: PROTEIN SUPPLEMENT (PROSTAT) 30 ML LIQUID GT SCH ×2 (08:38→17:12)
[2020-02-13] MEDS: VITAMINS A AND D OINT TP SCH (08:39)
[2020-02-13] MEDS: COD LIVER OIL/ZINC OXIDE OINT 113 GM TUBE TP SCH ×2 (08:39→21:44)
[2020-02-13] MEDS: HYDROGEN PEROXIDE 3% 118 ML BOTTLE TP SCH ×2 (09:12→21:15)
[2020-02-13 21:19] VITALS: BP 139/62
[2020-02-13] MEDS: MULTIVIT, IRON, MIN NO. 8, FA TABLET GT SCH (21:43)
[2020-02-14] MEDS: PANTOPRAZOLE ORAL SUSPENSION 40 MG SUSPDR.PKT GT SCH (05:45)
--- NOTE | 2020-02-14 06:55 | NUR ---
Protonix suspension not given awaiting for authorization.
[2020-02-14] MEDS: HYDROGEN PEROXIDE 3% 118 ML BOTTLE TP SCH ×2 (07:25→20:56)
[2020-02-14 08:03] VITALS: BP 137/78
[2020-02-14] MEDS: FINASTERIDE 5 MG TABLET GT SCH (09:45)
[2020-02-14] MEDS: PROTEIN SUPPLEMENT (PROSTAT) 30 ML LIQUID GT SCH ×2 (09:45→17:06)
[2020-02-14] MEDS: DULOXETINE 30 MG CAPSULE.DR GT SCH (09:45)
[2020-02-14] MEDS: VITAMINS A AND D OINT TP SCH (09:46)
[2020-02-14] MEDS: COD LIVER OIL/ZINC OXIDE OINT 113 GM TUBE TP SCH ×2 (09:46→20:55)
[2020-02-14] MEDS: JEVITY 1.2 1000 ML LIQUID GT PRN (15:15)
[2020-02-14 19:53] VITALS: BP 131/75
[2020-02-14] MEDS: MULTIVIT, IRON, MIN NO. 8, FA TABLET GT SCH (20:55)
[2020-02-14] MEDS: ACETAMINOPHEN 650 MG/20 ML UDC- SA PATIENTS-PAIN ONLY GT PRN (20:57)
[2020-02-15] MEDS: JEVITY 1.2 1000 ML LIQUID GT PRN ×2 (04:36→23:30)
[2020-02-15] MEDS: PANTOPRAZOLE ORAL SUSPENSION 40 MG SUSPDR.PKT GT SCH (05:03)
[2020-02-15 08:03] VITALS: BP 115/69
[2020-02-15] MEDS: HYDROGEN PEROXIDE 3% 118 ML BOTTLE TP SCH ×2 (09:24→21:34)
[2020-02-15] MEDS: DULOXETINE 30 MG CAPSULE.DR GT SCH (09:52)
[2020-02-15] MEDS: PROTEIN SUPPLEMENT (PROSTAT) 30 ML LIQUID GT SCH ×2 (09:53→17:00)
[2020-02-15] MEDS: FINASTERIDE 5 MG TABLET GT SCH (09:53)
[2020-02-15] MEDS: COD LIVER OIL/ZINC OXIDE OINT 113 GM TUBE TP SCH ×2 (09:53→21:51)
[2020-02-15] MEDS: VITAMINS A AND D OINT TP SCH (09:53)
--- NOTE | 2020-02-15 15:45 | NUR ---
HANDOVER REPORT GIVEN. ABD BLOATED SIMETHICONE GIVEN ASPIRATED SOME AIR FROM ABDOMEN.
[2020-02-15 20:28] VITALS: BP 116/64
[2020-02-15] MEDS: MULTIVIT, IRON, MIN NO. 8, FA TABLET GT SCH (20:57)
[2020-02-16] MEDS: PANTOPRAZOLE ORAL SUSPENSION 40 MG SUSPDR.PKT GT SCH (05:46)
[2020-02-16 06:51] LABS: NEUTROPHILS # (AUTO) 3.1 K/uL (1.8-8.9)
[2020-02-16 07:06] LABS: BILIRUBIN,TOTAL 0.4 mg/dL (0.2-1.0); CREATININE 0.7 mg/dL (0.6-1.3); POTASSIUM 4.6 mmol/L (3.5-5.1)
[2020-02-16 07:14] LABS: BASOPHILS % (AUTO) 0.7 % (0.0-2.0); EOSINOPHILS # (AUTO) 0.2 K/uL (0.0-0.7); EOSINOPHILS % (AUTO) 4.1 % (0.0-7.0); HEMATOCRIT 42.5 % (36.7-47.1); HEMOGLOBIN 14.1 g/dL (12.5-16.3); LYMPHOCYTES % (AUTO) 33.7 % (20.5-51.5); MEAN CORPUSCULAR HEMOGLOBIN 29.2 uug (23.8-33.4); MEAN CORPUSCULAR HGB CONC 33 g/dL (32.5-36.3); MEAN CORPUSCULAR VOLUME 88.3 fL (73.0-96.2); MONOCYTES # (AUTO) 0.4 K/uL (2.0-10.0); MONOCYTES % (AUTO) 7.6 % (0.0-11.0); NEUTROPHILS % (AUTO) 53.9 % (38.5-71.5); PLATELET COUNT (AUTO) 217 K/uL (152-348); RED BLOOD CELL COUNT(AUTO) 4.81 MIL/uL (4.06-5.63)
[2020-02-16 07:15] LABS: WHITE BLOOD COUNT (AUTO) 5.8 K/uL (3.6-10.2)
[2020-02-16 08:05] VITALS: BP 138/72
[2020-02-16] MEDS: HYDROGEN PEROXIDE 3% 118 ML BOTTLE TP SCH ×2 (08:07→20:01)
[2020-02-16] MEDS: COD LIVER OIL/ZINC OXIDE OINT 113 GM TUBE TP SCH ×2 (08:10→20:01)
[2020-02-16] MEDS: FINASTERIDE 5 MG TABLET GT SCH (08:10)
[2020-02-16] MEDS: DULOXETINE 30 MG CAPSULE.DR GT SCH (08:10)
[2020-02-16] MEDS: PROTEIN SUPPLEMENT (PROSTAT) 30 ML LIQUID GT SCH ×2 (08:10→16:37)
[2020-02-16] MEDS: VITAMINS A AND D OINT TP SCH (08:10)
--- NOTE | 2020-02-16 09:30 | NUR ---
Seen by Ellen Owens notified of labs results Na 133, new order given to reduce gtube water flushes to 100ml q6hrs.
[2020-02-16] MEDS: JEVITY 1.2 1000 ML LIQUID GT PRN (16:37)
[2020-02-16] MEDS: MULTIVIT, IRON, MIN NO. 8, FA TABLET GT SCH (20:01)
[2020-02-16 20:22] VITALS: BP 138/63
[2020-02-17] MEDS: PANTOPRAZOLE ORAL SUSPENSION 40 MG SUSPDR.PKT GT SCH (05:05)
[2020-02-17 08:07] VITALS: BP 117/65
[2020-02-17] MEDS: VITAMINS A AND D OINT TP SCH (08:13)
[2020-02-17] MEDS: COD LIVER OIL/ZINC OXIDE OINT 113 GM TUBE TP SCH ×2 (08:13→21:46)
[2020-02-17] MEDS: FINASTERIDE 5 MG TABLET GT SCH (08:13)
[2020-02-17] MEDS: DULOXETINE 30 MG CAPSULE.DR GT SCH (08:13)
[2020-02-17] MEDS: PROTEIN SUPPLEMENT (PROSTAT) 30 ML LIQUID GT SCH ×2 (08:13→17:10)
[2020-02-17] MEDS: HYDROGEN PEROXIDE 3% 118 ML BOTTLE TP SCH ×2 (09:00→21:00)
[2020-02-17] MEDS: JEVITY 1.2 1000 ML LIQUID GT PRN (12:16)
--- NOTE | 2020-02-17 19:09 | NUR ---
Seen and examined by Nichole ARMENTA ,no new orders noted.
[2020-02-17 20:48] VITALS: BP 129/78
[2020-02-17] MEDS: ACETAMINOPHEN 650 MG/20 ML UDC- SA PATIENTS-PAIN ONLY GT PRN (21:46)
[2020-02-17] MEDS: MULTIVIT, IRON, MIN NO. 8, FA TABLET GT SCH (21:46)
[2020-02-18] MEDS: JEVITY 1.2 1000 ML LIQUID GT PRN ×2 (01:30→19:01)
[2020-02-18] MEDS: PANTOPRAZOLE ORAL SUSPENSION 40 MG SUSPDR.PKT GT SCH (05:56)
[2020-02-18 08:00] VITALS: BP 121/58
[2020-02-18] MEDS: COD LIVER OIL/ZINC OXIDE OINT 113 GM TUBE TP SCH ×2 (09:00→20:44)
[2020-02-18] MEDS: DULOXETINE 30 MG CAPSULE.DR GT SCH (09:00)
[2020-02-18] MEDS: FINASTERIDE 5 MG TABLET GT SCH (09:00)
[2020-02-18] MEDS: PROTEIN SUPPLEMENT (PROSTAT) 30 ML LIQUID GT SCH ×2 (09:00→16:00)
[2020-02-18] MEDS: HYDROGEN PEROXIDE 3% 118 ML BOTTLE TP SCH ×2 (09:00→20:44)
[2020-02-18] MEDS: VITAMINS A AND D OINT TP SCH (09:00)
[2020-02-18] MEDS: ACETAMINOPHEN 650 MG/20 ML UDC- SA PATIENTS-PAIN ONLY GT PRN (12:43)
[2020-02-18] MEDS: HYDROCODONE/APAP 10-325 MG TABLET GT PRN ×2 (15:59→22:03)
[2020-02-18 20:30] VITALS: BP 136/76
[2020-02-18] MEDS: MULTIVIT, IRON, MIN NO. 8, FA TABLET GT SCH (20:44)
[2020-02-19] MEDS: PANTOPRAZOLE ORAL SUSPENSION 40 MG SUSPDR.PKT GT SCH (05:11)
[2020-02-19] MEDS: HYDROGEN PEROXIDE 3% 118 ML BOTTLE TP SCH ×2 (07:20→21:11)
[2020-02-19 08:05] VITALS: BP 128/68
[2020-02-19] MEDS: DULOXETINE 30 MG CAPSULE.DR GT SCH (08:27)
[2020-02-19] MEDS: FINASTERIDE 5 MG TABLET GT SCH (08:27)
[2020-02-19] MEDS: VITAMINS A AND D OINT TP SCH (08:28)
[2020-02-19] MEDS: COD LIVER OIL/ZINC OXIDE OINT 113 GM TUBE TP SCH ×2 (08:28→20:42)
[2020-02-19] MEDS: PROTEIN SUPPLEMENT (PROSTAT) 30 ML LIQUID GT SCH ×2 (08:28→17:00)
--- NOTE | 2020-02-19 09:00 | NUR ---
Received pt in bed, no acute distress. All due AM medications given as ordered. Trach well secured, suctioned PRN. Skin/wound care rendered. Will continue to monitor accordingly.
--- NOTE | 2020-02-19 13:30 | NUR ---
Nursing report given to receiving COMMUNITY MARKETING MANAGER for continuation of care, no further question from receiving staff.
[2020-02-19] MEDS: MULTIVIT, IRON, MIN NO. 8, FA TABLET GT SCH (20:42)
[2020-02-19 20:45] VITALS: BP 124/61
[2020-02-20] MEDS: ACETAMINOPHEN 650 MG/20 ML UDC- SA PATIENTS-PAIN ONLY GT PRN ×2 (02:18→21:01)
[2020-02-20] MEDS: PANTOPRAZOLE ORAL SUSPENSION 40 MG SUSPDR.PKT GT SCH (06:10)
[2020-02-20 08:06] VITALS: BP 134/77
[2020-02-20] MEDS: DULOXETINE 30 MG CAPSULE.DR GT SCH (08:42)
[2020-02-20] MEDS: VITAMINS A AND D OINT TP SCH (08:43)
[2020-02-20] MEDS: COD LIVER OIL/ZINC OXIDE OINT 113 GM TUBE TP SCH ×2 (08:43→21:01)
[2020-02-20] MEDS: FINASTERIDE 5 MG TABLET GT SCH (08:43)
[2020-02-20] MEDS: PROTEIN SUPPLEMENT (PROSTAT) 30 ML LIQUID GT SCH ×2 (08:43→16:34)
[2020-02-20] MEDS: HYDROGEN PEROXIDE 3% 118 ML BOTTLE TP SCH ×2 (09:00→21:19)
[2020-02-20] MEDS: JEVITY 1.2 1000 ML LIQUID GT PRN (12:13)
[2020-02-20 20:45] VITALS: BP 129/75
[2020-02-20] MEDS: MULTIVIT, IRON, MIN NO. 8, FA TABLET GT SCH (21:01)
[2020-02-21] MEDS: PANTOPRAZOLE ORAL SUSPENSION 40 MG SUSPDR.PKT GT SCH (06:05)
[2020-02-21] MEDS: HYDROGEN PEROXIDE 3% 118 ML BOTTLE TP SCH ×2 (09:00→20:48)
[2020-02-21] MEDS: FINASTERIDE 5 MG TABLET GT SCH (09:03)
[2020-02-21] MEDS: PROTEIN SUPPLEMENT (PROSTAT) 30 ML LIQUID GT SCH ×2 (09:03→17:10)
[2020-02-21] MEDS: COD LIVER OIL/ZINC OXIDE OINT 113 GM TUBE TP SCH ×2 (09:03→20:10)
[2020-02-21] MEDS: DULOXETINE 30 MG CAPSULE.DR GT SCH (09:03)
[2020-02-21] MEDS: VITAMINS A AND D OINT TP SCH (09:03)
[2020-02-21 10:59] VITALS: BP 117/60
[2020-02-21] MEDS: MULTIVIT, IRON, MIN NO. 8, FA TABLET GT SCH (20:09)
[2020-02-21 20:51] VITALS: BP 124/67
[2020-02-22] MEDS: JEVITY 1.2 1000 ML LIQUID GT PRN ×2 (01:55→20:56)
[2020-02-22] MEDS: PANTOPRAZOLE ORAL SUSPENSION 40 MG SUSPDR.PKT GT SCH (05:15)
[2020-02-22 08:03] VITALS: BP 123/68
[2020-02-22] MEDS: FINASTERIDE 5 MG TABLET GT SCH (09:47)
[2020-02-22] MEDS: DULOXETINE 30 MG CAPSULE.DR GT SCH (09:47)
[2020-02-22] MEDS: COD LIVER OIL/ZINC OXIDE OINT 113 GM TUBE TP SCH ×2 (09:48→20:56)
[2020-02-22] MEDS: PROTEIN SUPPLEMENT (PROSTAT) 30 ML LIQUID GT SCH ×2 (09:48→17:23)
[2020-02-22] MEDS: HYDROGEN PEROXIDE 3% 118 ML BOTTLE TP SCH ×2 (09:49→21:07)
[2020-02-22] MEDS: VITAMINS A AND D OINT TP SCH (09:49)
[2020-02-22 20:36] VITALS: BP 127/70
[2020-02-22] MEDS: MULTIVIT, IRON, MIN NO. 8, FA TABLET GT SCH (20:56)
[2020-02-23] MEDS: PANTOPRAZOLE ORAL SUSPENSION 40 MG SUSPDR.PKT GT SCH ×2 (05:43→05:45)
[2020-02-23 08:04] VITALS: BP 116/72
[2020-02-23] MEDS: VITAMINS A AND D OINT TP SCH (08:53)
[2020-02-23] MEDS: DULOXETINE 30 MG CAPSULE.DR GT SCH (08:53)
[2020-02-23] MEDS: COD LIVER OIL/ZINC OXIDE OINT 113 GM TUBE TP SCH ×2 (08:53→20:27)
[2020-02-23] MEDS: FINASTERIDE 5 MG TABLET GT SCH (08:53)
[2020-02-23] MEDS: PROTEIN SUPPLEMENT (PROSTAT) 30 ML LIQUID GT SCH ×2 (08:53→17:12)
[2020-02-23] MEDS: HYDROGEN PEROXIDE 3% 118 ML BOTTLE TP SCH ×2 (09:00→21:38)
[2020-02-23] MEDS: HYDROCODONE/APAP 10-325 MG TABLET GT PRN (12:43)
[2020-02-23] MEDS: MULTIVIT, IRON, MIN NO. 8, FA TABLET GT SCH (20:27)
[2020-02-23 21:14] VITALS: BP 117/74
[2020-02-24] MEDS: JEVITY 1.2 1000 ML LIQUID GT PRN (01:00)
[2020-02-24] MEDS: PANTOPRAZOLE ORAL SUSPENSION 40 MG SUSPDR.PKT GT SCH (05:59)
[2020-02-24 08:05] VITALS: BP 136/88
[2020-02-24] MEDS: COD LIVER OIL/ZINC OXIDE OINT 113 GM TUBE TP SCH ×2 (08:12→21:31)
[2020-02-24] MEDS: DULOXETINE 30 MG CAPSULE.DR GT SCH (08:12)
[2020-02-24] MEDS: PROTEIN SUPPLEMENT (PROSTAT) 30 ML LIQUID GT SCH ×2 (08:12→17:14)
[2020-02-24] MEDS: VITAMINS A AND D OINT TP SCH (08:12)
[2020-02-24] MEDS: FINASTERIDE 5 MG TABLET GT SCH (08:12)
[2020-02-24] MEDS: HYDROGEN PEROXIDE 3% 118 ML BOTTLE TP SCH ×2 (09:00→21:22)
--- NOTE | 2020-02-24 10:00 | NUR ---
Reported by Vendor Representatives pt has some bluish discoloration ,no swelling noted on the r hand,pt start on hands splints trials yesterday, will observe.
--- NOTE | 2020-02-24 10:01 | NUR ---
amendment from previous charting ,pt has slight swelling on the R hand.
--- NOTE | 2020-02-24 14:00 | NUR ---
OT was informed regarding the bluish discoloration and slight swelling.not to do splints trials on this hand.
[2020-02-24 20:59] VITALS: BP 134/90
--- NOTE | 2020-02-24 21:00 | NUR ---
PT STILL HAS (R) HAND SLIGHT SWELLING WITH BLUISH DISCOLORATION .CONTINUE MONITOR FOR PAIN AND DISCOMFORT.
[2020-02-24] MEDS: MULTIVIT, IRON, MIN NO. 8, FA TABLET GT SCH (21:31)
[2020-02-24] MEDS: MUPIROCIN 2% OINT 22 GM TUBE TP SCH (21:31)
[2020-02-25] MEDS: PANTOPRAZOLE ORAL SUSPENSION 40 MG SUSPDR.PKT GT SCH (05:57)
--- NOTE | 2020-02-25 08:00 | NUR ---
PT. RECEIVED COMFORTABLE SLEEPING AND NO MOANING OR DISCOMFORT NOTED ,NO FACIAL GRIMACING NOTED ONLT SLIGHT EDEMA AND SLIGHT BLUISH DISCOLORATION OBSERVED,GENTLY HANDLING DONE AVOIDING TOUCHING RT. HAND.
[2020-02-25 08:05] VITALS: BP 112/69
[2020-02-25] MEDS: FINASTERIDE 5 MG TABLET GT SCH (09:00)
[2020-02-25] MEDS: PROTEIN SUPPLEMENT (PROSTAT) 30 ML LIQUID GT SCH ×2 (09:00→16:34)
[2020-02-25] MEDS: VITAMINS A AND D OINT TP SCH (09:00)
[2020-02-25] MEDS: DULOXETINE 30 MG CAPSULE.DR GT SCH (09:00)
[2020-02-25] MEDS: HYDROGEN PEROXIDE 3% 118 ML BOTTLE TP SCH ×2 (09:00→20:48)
[2020-02-25] MEDS: COD LIVER OIL/ZINC OXIDE OINT 113 GM TUBE TP SCH ×2 (09:00→21:23)
[2020-02-25] MEDS: MUPIROCIN 2% OINT 22 GM TUBE TP SCH ×2 (09:00→21:23)
--- NOTE | 2020-02-25 09:30 | NUR ---
Seen and examined by Dr Donald ,aware pt has bluish discoloration on the R hand,after pt start on splints trials with new orders noted and carried out.
[2020-02-25] MEDS: JEVITY 1.2 1000 ML LIQUID GT PRN ×2 (10:23→22:54)
--- NOTE | 2020-02-25 11:00 | NUR ---
Left message to Dr Donald to notify him regarding the r hand XR result,acute fracture R fight mid to distal metacarpal bone.
--- NOTE | 2020-02-25 12:32 | NUR ---
new orders to dc PROM to the r upper extremity,no splints to the R hand,continue PROM to the L upper extremity.
--- NOTE | 2020-02-25 13:00 | NUR ---
Rna and Oil Painter was inservice for the handling of the R hand when turning to avoid any pressure,continue monitoring,staff nurse to monitor for pain and medicate for pain if necessary.
--- NOTE | 2020-02-25 14:00 | NUR ---
Left message to Dr Donald ,will call back.
[2020-02-25] MEDS: HYDROCODONE/APAP 10-325 MG TABLET GT PRN ×2 (14:29→22:07)
--- NOTE | 2020-02-25 16:00 | NUR ---
Dr Donald called back with new orders noted for Id consult for the genital herpes,and consult with Dr Yandel Smith regarding the fracture on the R fifth. mid to distal metacarpal bone.Spoke to Dr Bobby Silverio's ,and explain to her regarding the patient genital rashes and the xr of the r hand results and new orders,She understand and agreed with the plan of care.
--- NOTE | 2020-02-25 16:30 | NUR ---
PT. MEDICATED ORDERED FOR P/A 02/12 AND EFFECTIVE .ALL SOURCE INTELLIGENCE TECHNICIAN'S AND RNA'S INSTRUCTED TO AVOID TOUCHING OR HANDLING RT.HAND D/T EDEMA AND SLIGHT BLUISH DISCOLORATION STILL OBSERVED.NOTED NO DEFORMITY,AND WITH PULSES PRESENT.PICTURE WAS TAKEN TOO.FREQUENT VISUAL CHECKS DONE TO REASSURE COMFORT AND SAFETY.
--- NOTE | 2020-02-25 17:45 | NUR ---
Call Dr Donald ,left message regarding I spoke to Dr jignesh Humphries and his specialty don't cover fractures.He needs to find a orthopedics.
[2020-02-25 20:13] VITALS: BP 125/62
[2020-02-25] MEDS: MULTIVIT, IRON, MIN NO. 8, FA TABLET GT SCH (21:22)
[2020-02-25] MEDS: ACYCLOVIR 200 MG CAPSULE GT SCH (21:23)
--- NOTE | 2020-02-25 23:07 | NUR ---
CONTINUE MONITOR FOR PAIN ON (R) HAND SLIGHT BLUISH DISCOLORATION AND SWELLING .FREQUENT VISUAL CHECKS FOR COMFORT AND SAFETY.
--- NOTE | 2020-02-26 05:12 | NUR ---
Protonix 40 mg not available, waiting for pharmacy to deliver.
[2020-02-26] MEDS: PANTOPRAZOLE ORAL SUSPENSION 40 MG SUSPDR.PKT GT SCH (05:26)
[2020-02-26 07:30] VITALS: BP 132/73
--- NOTE | 2020-02-26 07:40 | NUR ---
PT SLEPT INTERMITTENTLY.. PT IN NO ACUTE DISTRESS.TURNED AND REPOSITIONED. PRESCRIBED MEDICATION GIVEN AND PT TOLERATED IT WELL. WILL ENDORSE TO INCOMING NURSE FOR CONTINUITY OF CARE.
[2020-02-26] MEDS: DULOXETINE 30 MG CAPSULE.DR GT SCH (08:25)
[2020-02-26] MEDS: ACYCLOVIR 200 MG CAPSULE GT SCH ×2 (08:25→21:05)
[2020-02-26] MEDS: MUPIROCIN 2% OINT 22 GM TUBE TP SCH ×2 (08:25→21:05)
[2020-02-26] MEDS: FINASTERIDE 5 MG TABLET GT SCH (08:25)
[2020-02-26] MEDS: VITAMINS A AND D OINT TP SCH (08:25)
[2020-02-26] MEDS: PROTEIN SUPPLEMENT (PROSTAT) 30 ML LIQUID GT SCH ×2 (08:25→16:19)
[2020-02-26] MEDS: COD LIVER OIL/ZINC OXIDE OINT 113 GM TUBE TP SCH ×2 (08:25→21:05)
[2020-02-26] MEDS: HYDROCODONE/APAP 10-325 MG TABLET GT PRN ×2 (08:26→16:20)
[2020-02-26] MEDS: HYDROGEN PEROXIDE 3% 118 ML BOTTLE TP SCH ×2 (09:10→20:48)
--- NOTE | 2020-02-26 10:55 | NUR ---
PAGED DR MARINO, ORTHO ON-CALL REGARDING ACUTE FX OF RIGHT FIFTH MID TO DISTAL METACARPAL BONE. RELAYED ASSESSMENT FINDING AND XR OF RIGHT HAND. DR MARINO NOTED THAT HE WILL TAKE A LOOK AT THE PATIENT. WILL CONTINUE TO MONITOR.
--- NOTE | 2020-02-26 18:30 | NUR ---
Comfort measures given for right hand pain ([place] given x2). right upper extremity handle gently.
[2020-02-26 20:18] VITALS: BP 130/67
[2020-02-26] MEDS: MULTIVIT, IRON, MIN NO. 8, FA TABLET GT SCH (21:05)
[2020-02-27] MEDS: HYDROCODONE/APAP 10-325 MG TABLET GT PRN ×3 (00:37→13:07)
[2020-02-27] MEDS: PANTOPRAZOLE ORAL SUSPENSION 40 MG SUSPDR.PKT GT SCH (05:11)
[2020-02-27 08:05] VITALS: BP 104/48
[2020-02-27] MEDS: HYDROGEN PEROXIDE 3% 118 ML BOTTLE TP SCH ×2 (09:31→21:37)
[2020-02-27] MEDS: PROTEIN SUPPLEMENT (PROSTAT) 30 ML LIQUID GT SCH ×2 (09:48→17:36)
[2020-02-27] MEDS: FINASTERIDE 5 MG TABLET GT SCH (09:48)
[2020-02-27] MEDS: DULOXETINE 30 MG CAPSULE.DR GT SCH (09:49)
[2020-02-27] MEDS: ACYCLOVIR 400 MG TABLET GT SCH ×2 (09:49→21:00)
[2020-02-27] MEDS: COD LIVER OIL/ZINC OXIDE OINT 113 GM TUBE TP SCH ×2 (09:49→21:00)
[2020-02-27] MEDS: VITAMINS A AND D OINT TP SCH (09:49)
[2020-02-27] MEDS: MUPIROCIN 2% OINT 22 GM TUBE TP SCH ×2 (09:49→21:00)
[2020-02-27] MEDS: JEVITY 1.2 1000 ML LIQUID GT PRN (11:22)
--- NOTE | 2020-02-27 12:37 | NUR ---
Patient noted with episode of blood tinged tracheal secretions early in the day and later at noon noted with brownish tracheal secretions. Suctioned secretions as needed. Patient has no noted signs of distress, vital signs stable. Dr. Donald in the unit, informed him regarding noted character of tracheal secretions with no new order at this time and continue to monitor. Per Dr. Donald, he spoke with ortho Dr. Bravo regarding right hand fracture, and advised no surgical/medical management required. Comfort measures provided and head of bed maintained on 45 degrees elevated. Safety measures maintained.
--- NOTE | 2020-02-27 17:44 | NUR ---
Spoke with , notified, of patient's condition and that Dr. Donald, spoke with ortho Dr. Bravo regarding right hand fracture, and advised no surgical/medical management required.
[2020-02-27] MEDS: ONDANSETRON HCL 4 MG TABLET GT PRN (19:50)
[2020-02-27 20:07] VITALS: BP 142/76
[2020-02-27] MEDS: MULTIVIT, IRON, MIN NO. 8, FA TABLET GT SCH (21:00)
[2020-02-27 22:15] VITALS: BP 143/80
[2020-02-27] MEDS: ACETAMINOPHEN 650 MG/20 ML UDC- SA PATIENTS-PAIN ONLY GT PRN (22:52)
--- NOTE | 2020-02-28 00:22 | NUR ---
temp @1999-.3, @2230-100.4,@2430-99.8, small amount of dark brown secretion noted, zofran given x2, repositioned and made pt comfortable, will monitor.
[2020-02-28] MEDS: ONDANSETRON HCL 4 MG TABLET GT PRN ×2 (00:53→09:21)
--- NOTE | 2020-02-28 01:02 | NUR ---
continue on acyclovir 400mg gt for infection, no adverse reaction noted.
[2020-02-28] MEDS: HYDROCODONE/APAP 10-325 MG TABLET GT PRN ×2 (04:33→17:25)
[2020-02-28] MEDS: PANTOPRAZOLE ORAL SUSPENSION 40 MG SUSPDR.PKT GT SCH (05:05)
[2020-02-28 08:04] VITALS: BP 97/53
[2020-02-28] MEDS: HYDROGEN PEROXIDE 3% 118 ML BOTTLE TP SCH ×2 (08:22→21:25)
[2020-02-28] MEDS: PROTEIN SUPPLEMENT (PROSTAT) 30 ML LIQUID GT SCH ×2 (09:19→17:16)
[2020-02-28] MEDS: COD LIVER OIL/ZINC OXIDE OINT 113 GM TUBE TP SCH ×2 (09:19→20:46)
[2020-02-28] MEDS: MUPIROCIN 2% OINT 22 GM TUBE TP SCH ×2 (09:19→20:46)
[2020-02-28] MEDS: DULOXETINE 30 MG CAPSULE.DR GT SCH (09:19)
[2020-02-28] MEDS: VITAMINS A AND D OINT TP SCH (09:19)
[2020-02-28] MEDS: FINASTERIDE 5 MG TABLET GT SCH (09:19)
[2020-02-28] MEDS: ACYCLOVIR 400 MG TABLET GT SCH ×2 (09:19→20:46)
[2020-02-28] MEDS: ACETAMINOPHEN 650 MG/20 ML UDC- SA PATIENTS-PAIN ONLY GT PRN (12:44)
[2020-02-28 20:14] VITALS: BP 101/49
[2020-02-28] MEDS: MULTIVIT, IRON, MIN NO. 8, FA TABLET GT SCH (20:45)
[2020-02-28] MEDS: JEVITY 1.2 1000 ML LIQUID GT PRN (22:08)
[2020-02-29] MEDS: HYDROCODONE/APAP 10-325 MG TABLET GT PRN ×3 (01:36→17:28)
[2020-02-29] MEDS: ONDANSETRON HCL 4 MG TABLET GT PRN ×2 (02:05→04:06)
[2020-02-29] MEDS: PANTOPRAZOLE ORAL SUSPENSION 40 MG SUSPDR.PKT GT SCH (05:26)
[2020-02-29] MEDS: HYDROGEN PEROXIDE 3% 118 ML BOTTLE TP SCH ×2 (07:55→20:55)
[2020-02-29 08:00] VITALS: BP 113/53
[2020-02-29] MEDS: PROTEIN SUPPLEMENT (PROSTAT) 30 ML LIQUID GT SCH ×2 (08:08→17:23)
[2020-02-29] MEDS: DULOXETINE 30 MG CAPSULE.DR GT SCH (08:08)
[2020-02-29] MEDS: FINASTERIDE 5 MG TABLET GT SCH (08:08)
[2020-02-29] MEDS: MUPIROCIN 2% OINT 22 GM TUBE TP SCH ×2 (08:08→20:55)
[2020-02-29] MEDS: ACYCLOVIR 400 MG TABLET GT SCH ×2 (08:08→21:03)
[2020-02-29] MEDS: COD LIVER OIL/ZINC OXIDE OINT 113 GM TUBE TP SCH ×2 (08:09→20:55)
[2020-02-29] MEDS: VITAMINS A AND D OINT TP SCH (08:10)
--- NOTE | 2020-02-29 10:00 | NUR ---
Pt noted with discomfort 0800 M/B facial grimacing. [place] 1 tab given via G-tube with AM medications for possible Rt Hand pain. Effective post 0900. Will continue to monitor for flares of S/S of pain/discomfort throughout shift.
--- NOTE | 2020-02-29 17:00 | NUR ---
[place] 1 tab via once again for facial grimacing and crying episode. Helped post 1800. Handled gently when care is rendered to minimize discomfort.
--- NOTE | 2020-02-29 18:00 | NUR ---
Continue on Acyclovir for genital herpes,no adverse reaction noted,temp 99.6,cooling measures done,make comfortable in bed
[2020-02-29] MEDS: MULTIVIT, IRON, MIN NO. 8, FA TABLET GT SCH (20:54)
[2020-02-29 22:43] VITALS: BP 122/50
[2020-03-01] MEDS: JEVITY 1.2 1000 ML LIQUID GT PRN (00:14)
[2020-03-01] MEDS: HYDROCODONE/APAP 10-325 MG TABLET GT PRN ×2 (03:25→22:34)
[2020-03-01] MEDS: PANTOPRAZOLE ORAL SUSPENSION 40 MG SUSPDR.PKT GT SCH (05:14)
[2020-03-01 08:00] VITALS: BP 122/49
[2020-03-01] MEDS: ACYCLOVIR 400 MG TABLET GT SCH ×2 (08:25→20:16)
[2020-03-01] MEDS: FINASTERIDE 5 MG TABLET GT SCH (08:25)
[2020-03-01] MEDS: PROTEIN SUPPLEMENT (PROSTAT) 30 ML LIQUID GT SCH ×2 (08:25→17:28)
[2020-03-01] MEDS: DULOXETINE 30 MG CAPSULE.DR GT SCH (08:25)
[2020-03-01] MEDS: MUPIROCIN 2% OINT 22 GM TUBE TP SCH ×2 (08:26→20:16)
[2020-03-01] MEDS: VITAMINS A AND D OINT TP SCH (08:26)
[2020-03-01] MEDS: COD LIVER OIL/ZINC OXIDE OINT 113 GM TUBE TP SCH ×2 (08:26→20:16)
[2020-03-01] MEDS: HYDROGEN PEROXIDE 3% 118 ML BOTTLE TP SCH ×2 (09:09→20:16)
[2020-03-01] MEDS: ACETAMINOPHEN 650 MG/20 ML UDC- SA PATIENTS-PAIN ONLY GT PRN (10:47)
--- NOTE | 2020-03-01 11:30 | NUR ---
Seen by Ellen Saul, and Nichole Perry PA no new order given at this time.
--- NOTE | 2020-03-01 20:00 | NUR ---
SEEN BY BETSY JUNIOR WITH NNO.
[2020-03-01] MEDS: MULTIVIT, IRON, MIN NO. 8, FA TABLET GT SCH (20:16)
[2020-03-01 20:46] VITALS: BP 143/73
[2020-03-02] MEDS: PANTOPRAZOLE ORAL SUSPENSION 40 MG SUSPDR.PKT GT SCH (06:06)
[2020-03-02 08:00] VITALS: BP 131/61
[2020-03-02] MEDS: ONDANSETRON HCL 4 MG TABLET GT PRN ×2 (08:27→17:40)
[2020-03-02] MEDS: FINASTERIDE 5 MG TABLET GT SCH (08:28)
[2020-03-02] MEDS: VITAMINS A AND D OINT TP SCH (08:28)
[2020-03-02] MEDS: COD LIVER OIL/ZINC OXIDE OINT 113 GM TUBE TP SCH ×2 (08:28→21:14)
[2020-03-02] MEDS: MUPIROCIN 2% OINT 22 GM TUBE TP SCH ×2 (08:28→21:14)
[2020-03-02] MEDS: PROTEIN SUPPLEMENT (PROSTAT) 30 ML LIQUID GT SCH ×2 (08:28→17:39)
[2020-03-02] MEDS: ACYCLOVIR 400 MG TABLET GT SCH ×2 (08:28→21:14)
[2020-03-02] MEDS: DULOXETINE 30 MG CAPSULE.DR GT SCH (08:28)
[2020-03-02] MEDS: HYDROGEN PEROXIDE 3% 118 ML BOTTLE TP SCH ×2 (09:49→21:35)
--- NOTE | 2020-03-02 14:40 | NUR ---
MARIETTA and Clinical Coordinator Elias Mata called patient's Bobby [phone] in response to a voicemail message Bobby had left this SW, stating that she had some questions about patient's current medical condition. Bobby was available to speak with this MARIETTA and Elias. Bobby's questions were addressed by Elias, and Bobby expressed understanding and thanked Elias for the information and clarification that was provided. Bobby then asked about when the visitation restrictions would be lifted because she is worried about not being able to see the patient. Elias and MARIETTA validated Bobby's feelings, expressed understanding, however explained that at this time [facility] continues to impose the restrictions and that it was not known when they would be lifted. Bobby expressed understanding. MARIETTA provided some supportive counseling, which Bobby thanked MARIETTA for. Bobby also thanked all the subacute staff for working so hard to take care of the patient during this pandemic. Bobby expressed being content with the information provided, and thanked Elias and this MARIETTA for their time.
[2020-03-02 20:50] VITALS: BP 130/59
[2020-03-02] MEDS: MULTIVIT, IRON, MIN NO. 8, FA TABLET GT SCH (21:14)
[2020-03-03] MEDS: JEVITY 1.2 1000 ML LIQUID GT PRN ×2 (04:14→21:16)
[2020-03-03] MEDS: PANTOPRAZOLE ORAL SUSPENSION 40 MG SUSPDR.PKT GT SCH (06:09)
[2020-03-03 08:00] VITALS: BP 132/48
[2020-03-03] MEDS: HYDROGEN PEROXIDE 3% 118 ML BOTTLE TP SCH ×2 (09:01→20:57)
[2020-03-03] MEDS: DULOXETINE 30 MG CAPSULE.DR GT SCH (09:08)
[2020-03-03] MEDS: ACYCLOVIR 400 MG TABLET GT SCH (09:08)
[2020-03-03] MEDS: PROTEIN SUPPLEMENT (PROSTAT) 30 ML LIQUID GT SCH ×2 (09:08→16:01)
[2020-03-03] MEDS: MUPIROCIN 2% OINT 22 GM TUBE TP SCH ×2 (09:08→21:10)
[2020-03-03] MEDS: FINASTERIDE 5 MG TABLET GT SCH (09:08)
[2020-03-03] MEDS: COD LIVER OIL/ZINC OXIDE OINT 113 GM TUBE TP SCH ×2 (09:09→21:10)
[2020-03-03] MEDS: VITAMINS A AND D OINT TP SCH (09:09)
[2020-03-03] MEDS: ONDANSETRON HCL 4 MG TABLET GT PRN ×2 (09:09→14:46)
[2020-03-03] MEDS: HYDROCODONE/APAP 10-325 MG TABLET GT PRN ×2 (12:14→22:00)
[2020-03-03] MEDS: ACETAMINOPHEN 650 MG/20 ML UDC- SA PATIENTS-PAIN ONLY GT PRN (16:01)
--- NOTE | 2020-03-03 18:00 | NUR ---
Pt on close monitoring for pain and low grade temperature,pt was medicated for pain ,with some help,made confortable in bed.
[2020-03-03 20:00] VITALS: BP 126/72
[2020-03-03] MEDS: MULTIVIT, IRON, MIN NO. 8, FA TABLET GT SCH (21:10)
[2020-03-04] MEDS: PANTOPRAZOLE ORAL SUSPENSION 40 MG SUSPDR.PKT GT SCH (06:18)
[2020-03-04 07:57] VITALS: BP 123/77
[2020-03-04] MEDS: COD LIVER OIL/ZINC OXIDE OINT 113 GM TUBE TP SCH ×2 (08:38→20:55)
[2020-03-04] MEDS: PROTEIN SUPPLEMENT (PROSTAT) 30 ML LIQUID GT SCH ×2 (08:38→17:04)
[2020-03-04] MEDS: DULOXETINE 30 MG CAPSULE.DR GT SCH (08:38)
[2020-03-04] MEDS: VITAMINS A AND D OINT TP SCH (08:38)
[2020-03-04] MEDS: MUPIROCIN 2% OINT 22 GM TUBE TP SCH ×2 (08:38→20:55)
[2020-03-04] MEDS: FINASTERIDE 5 MG TABLET GT SCH (08:38)
[2020-03-04] MEDS: HYDROCODONE/APAP 10-325 MG TABLET GT PRN (08:39)
[2020-03-04] MEDS: HYDROGEN PEROXIDE 3% 118 ML BOTTLE TP SCH ×2 (09:58→21:18)
--- NOTE | 2020-03-04 14:24 | NUR ---
NEW ORDER WAS CARRIED OUT FROM DR. JOHNSON FOR RNA.
[2020-03-04 20:00] VITALS: BP 117/53
[2020-03-04] MEDS: ACETAMINOPHEN 650 MG/20 ML UDC- SA PATIENTS-PAIN ONLY GT PRN (20:00)
[2020-03-04] MEDS: MULTIVIT, IRON, MIN NO. 8, FA TABLET GT SCH (20:54)
[2020-03-05] MEDS: PANTOPRAZOLE ORAL SUSPENSION 40 MG SUSPDR.PKT GT SCH (05:54)
[2020-03-05 08:12] VITALS: BP 143/71
[2020-03-05 08:19] LABS: BASOPHILS % (AUTO) 0.6 % (0.0-2.0); EOSINOPHILS # (AUTO) 0.1 K/uL (0.0-0.7); HEMOGLOBIN 13.2 g/dL (12.5-16.3); LYMPHOCYTES # (AUTO) 1.5 K/uL (20.0-40.0); LYMPHOCYTES % (AUTO) 21.9 % (20.5-51.5); MEAN CORPUSCULAR HEMOGLOBIN 28.6 uug (23.8-33.4); MEAN CORPUSCULAR HGB CONC 32 g/dL (32.5-36.3); MEAN CORPUSCULAR VOLUME 88.7 fL (73.0-96.2); MONOCYTES # (AUTO) 0.4 K/uL (2.0-10.0); MONOCYTES % (AUTO) 5.5 % (0.0-11.0); NEUTROPHILS # (AUTO) 4.8 K/uL (1.8-8.9); PLATELET COUNT (AUTO) 204 K/uL (152-348); RED BLOOD CELL COUNT(AUTO) 4.62 MIL/uL (4.06-5.63); WHITE BLOOD COUNT (AUTO) 6.9 K/uL (3.6-10.2)
[2020-03-05 08:47] LABS: CREATININE 0.6 mg/dL (0.6-1.3); PHOSPHOROUS 3.5 mg/dL (2.5-4.9); POTASSIUM 4.5 mmol/L (3.5-5.1)
[2020-03-05] MEDS: PROTEIN SUPPLEMENT (PROSTAT) 30 ML LIQUID GT SCH ×2 (09:38→16:58)
[2020-03-05] MEDS: COD LIVER OIL/ZINC OXIDE OINT 113 GM TUBE TP SCH ×2 (09:38→20:18)
[2020-03-05] MEDS: VITAMINS A AND D OINT TP SCH (09:38)
[2020-03-05] MEDS: DULOXETINE 30 MG CAPSULE.DR GT SCH (09:38)
[2020-03-05] MEDS: MUPIROCIN 2% OINT 22 GM TUBE TP SCH (09:38)
[2020-03-05] MEDS: FINASTERIDE 5 MG TABLET GT SCH (09:38)
[2020-03-05] MEDS: ACETAMINOPHEN 650 MG/20 ML UDC- SA PATIENTS-PAIN ONLY GT PRN (09:39)
[2020-03-05] MEDS: JEVITY 1.2 1000 ML LIQUID GT PRN ×2 (09:54→21:55)
[2020-03-05] MEDS: HYDROGEN PEROXIDE 3% 118 ML BOTTLE TP SCH ×2 (09:56→21:46)
--- NOTE | 2020-03-05 13:59 | NUR ---
MARIETTA called patient's Bobby [phone] and left her a voicemail message letting her know that the next IDT meeting for the patient is scheduled for 03/09/20 at 11am, and asked Bobby to call this MARIETTA back and let MARIETTA know if Bobby wants to participate in the meeting thru speaker phone.
--- NOTE | 2020-03-05 15:00 | NUR ---
SEEN BY DR. APOORVA HUNTER AND WITH NNO.
[2020-03-05 20:00] VITALS: BP 120/62
[2020-03-05] MEDS: MULTIVIT, IRON, MIN NO. 8, FA TABLET GT SCH (20:18)
[2020-03-06] MEDS: PANTOPRAZOLE ORAL SUSPENSION 40 MG SUSPDR.PKT GT SCH (05:41)
[2020-03-06 08:03] VITALS: BP 128/59
[2020-03-06] MEDS: HYDROGEN PEROXIDE 3% 118 ML BOTTLE TP SCH ×2 (08:25→21:42)
[2020-03-06] MEDS: VITAMINS A AND D OINT TP SCH (09:00)
[2020-03-06] MEDS: DULOXETINE 30 MG CAPSULE.DR GT SCH (09:26)
[2020-03-06] MEDS: PROTEIN SUPPLEMENT (PROSTAT) 30 ML LIQUID GT SCH ×2 (09:27→17:45)
[2020-03-06] MEDS: COD LIVER OIL/ZINC OXIDE OINT 113 GM TUBE TP SCH ×2 (09:27→20:36)
[2020-03-06] MEDS: FINASTERIDE 5 MG TABLET GT SCH (09:27)
[2020-03-06] MEDS: JEVITY 1.2 1000 ML LIQUID GT PRN (13:39)
[2020-03-06] MEDS: HYDROCODONE/APAP 10-325 MG TABLET GT PRN (13:40)
[2020-03-06 20:16] VITALS: BP 124/69
[2020-03-06] MEDS: MULTIVIT, IRON, MIN NO. 8, FA TABLET GT SCH (20:36)
[2020-03-07] MEDS: PANTOPRAZOLE ORAL SUSPENSION 40 MG SUSPDR.PKT GT SCH (05:15)
[2020-03-07] MEDS: JEVITY 1.2 1000 ML LIQUID GT PRN ×2 (07:11→21:31)
[2020-03-07 08:04] VITALS: BP 147/82
[2020-03-07] MEDS: HYDROGEN PEROXIDE 3% 118 ML BOTTLE TP SCH ×2 (08:38→21:22)
[2020-03-07] MEDS: DULOXETINE 30 MG CAPSULE.DR GT SCH (09:21)
[2020-03-07] MEDS: COD LIVER OIL/ZINC OXIDE OINT 113 GM TUBE TP SCH ×2 (09:22→20:41)
[2020-03-07] MEDS: PROTEIN SUPPLEMENT (PROSTAT) 30 ML LIQUID GT SCH ×2 (09:22→17:18)
[2020-03-07] MEDS: VITAMINS A AND D OINT TP SCH (09:22)
[2020-03-07] MEDS: FINASTERIDE 5 MG TABLET GT SCH (09:22)
[2020-03-07] MEDS: ACETAMINOPHEN 650 MG/20 ML UDC- SA PATIENTS-PAIN ONLY GT PRN (17:19)
[2020-03-07 20:11] VITALS: BP 132/74
[2020-03-07] MEDS: MULTIVIT, IRON, MIN NO. 8, FA TABLET GT SCH (20:41)
[2020-03-08] MEDS: HYDROCODONE/APAP 10-325 MG TABLET GT PRN ×2 (01:09→10:05)
--- NOTE | 2020-03-08 01:10 | NUR ---
Patient is afebrile, noted with moaning and grimacing, patient have right hand fracture, hands are both warm to touch, 3+ radial pulses, handled affected hand gently, kept clean and comfortable. Addendum: 03/08/20 at 0144 by KT PARRA RN Nurse lisa Min for pain, will continue monitor.
[2020-03-08] MEDS: PANTOPRAZOLE ORAL SUSPENSION 40 MG SUSPDR.PKT GT SCH (05:52)
[2020-03-08 07:46] VITALS: BP 124/70
[2020-03-08] MEDS: FINASTERIDE 5 MG TABLET GT SCH (08:24)
[2020-03-08] MEDS: DULOXETINE 30 MG CAPSULE.DR GT SCH (08:25)
[2020-03-08] MEDS: COD LIVER OIL/ZINC OXIDE OINT 113 GM TUBE TP SCH ×2 (08:25→20:33)
[2020-03-08] MEDS: PROTEIN SUPPLEMENT (PROSTAT) 30 ML LIQUID GT SCH ×2 (08:25→17:34)
[2020-03-08] MEDS: HYDROGEN PEROXIDE 3% 118 ML BOTTLE TP SCH ×2 (08:25→20:34)
[2020-03-08] MEDS: VITAMINS A AND D OINT TP SCH (08:26)
--- NOTE | 2020-03-08 09:51 | NUR ---
SW received a voicemail message from patient's Bobby, which was left on Sunday, 03/06. Bobby was responding to the message this SW had left Bobby on 03/05, inviting her to participate in the IDT meeting thru speaker phone. Bobby stated in her voicemail message that she would not be available on 03/09 to participate in the IDT meeting.
--- NOTE | 2020-03-08 11:47 | NUR ---
PT. SEEN AND EXAMINED BY DR. HERNANDEZ AND WITH NEW ORDER CARRIED OUT.
--- NOTE | 2020-03-08 14:15 | NUR ---
PT. WAS SEEN AND EXAMINED BY CLAYTON MCKEON AND WITH NEW ORDER FOR EVALUATION WITH JESSICA OROURKE (PSYCHIATRY).(SEE HER NOTES)
--- NOTE | 2020-03-08 15:14 | NUR ---
DR. LOPEZ (PSYCHIATRIST) WAS PAGED.
[2020-03-08 19:56] VITALS: BP 126/66
[2020-03-08] MEDS: MULTIVIT, IRON, MIN NO. 8, FA TABLET GT SCH (20:33)
--- NOTE | 2020-03-08 23:30 | NUR ---
Seen with new order from Dr. Donald with new order to discontinue Cymbalta 30mg and to start on Cymbalta 40mg via gt daily for pain / neuropathy.
[2020-03-09] MEDS: ACETAMINOPHEN 650 MG/20 ML UDC- SA PATIENTS-PAIN ONLY GT PRN (00:53)
[2020-03-09] MEDS: PANTOPRAZOLE ORAL SUSPENSION 40 MG SUSPDR.PKT GT SCH (05:18)
[2020-03-09 07:43] VITALS: BP 130/67
[2020-03-09] MEDS: COD LIVER OIL/ZINC OXIDE OINT 113 GM TUBE TP SCH ×2 (08:25→21:18)
[2020-03-09] MEDS: FINASTERIDE 5 MG TABLET GT SCH (08:25)
[2020-03-09] MEDS: PROTEIN SUPPLEMENT (PROSTAT) 30 ML LIQUID GT SCH ×2 (08:25→17:00)
[2020-03-09] MEDS: VITAMINS A AND D OINT TP SCH (08:25)
[2020-03-09] MEDS: HYDROGEN PEROXIDE 3% 118 ML BOTTLE TP SCH ×2 (09:54→20:45)
--- NOTE | 2020-03-09 13:42 | NUR ---
Pharmacy Update from Today's 03/09/20 IDT Meeting VS: Temp 98.9 HR 59 BP 130/67 LABS: (from 03/05/20) Wbc 6.9 H/H 13.2/41 Plt 204 Na 136 K 4.5 Cl 100 CO2 28 BUN/SCr 27/0.6 BS 107 Ca 9.3 phos 3.5 Mg 2.0 MEDICATION USE REVIEW: > Pt is not any anti-psych or anti-seizure medications > Pt previously on heparin, d/c'd d/t on and off minor trach bleeding > Pt now on Cymbalta 40mg daily for pain management, last CrCl ~100 ml/min > Pt on protonix 40mg daily 11/03 for GI prophylaxis, possible GI upset per MD > Pt continued on finasteride 5mg daily for BPH > PRN MED USAGE: (February) Tylenol for pain/temp used x9 Zofran PRN N/V used x5 Artificial Tears used x0 Mylanta PRN used x0 NEW ORDERS NOTED: > Duloxetine 30mg daily increased to 40mg daily for neuropathic pain > [place] PRN and Morphine PRN d/c'd 03/08 > Acyclovir 400mg q12hr 02/24-03/03, followed by bactroban 2% 02/23-03/05 for genital herpes per dermatology consult Patient was reviewed and discussed in detail with all medication changes noted per RN and Rx, per discussion, RNs found pt would remain agitated despite pain management with norco/morphine and suspected agitation was not d/t pain. Per development educator, found with possible previous diagnosis of bipolar disorder however pt family refuses diagnosis. Pt remains with episodes of agitation unrelieved by pain management and is non verbal, AMS at baseline. Psych consult now pending per primary MD and thus d/c'd norco/morphine as episodes of agitation unlikely to be from severe pain. Continues with duloxetine and tylenol for pain management. No further medication recommendations at this time, will continue to follow.
--- NOTE | 2020-03-09 14:07 | NUR ---
INTERDISCIPLINARY PLAN OF CARE CONFERENCE was held today. Patient's was not available to participate in the meeting today. Dr. Trujillo and the Interdisciplinary Team reviewed the current plan of care in detail. RN reported on patient's medical condition and changes in some medications. RN also reported that a psychiatry consultation is pending. See RN IDT conference notes. See also all other disciplines IDT notes and physician's progress notes for additional details.
[2020-03-09 19:44] VITALS: BP 115/70
[2020-03-09] MEDS: MULTIVIT, IRON, MIN NO. 8, FA TABLET GT SCH (21:17)
[2020-03-10] MEDS: JEVITY 1.2 1000 ML LIQUID GT PRN (03:00)
[2020-03-10] MEDS: ACETAMINOPHEN 650 MG/20 ML UDC- SA PATIENTS-PAIN ONLY GT PRN (03:26)
[2020-03-10] MEDS: PANTOPRAZOLE ORAL SUSPENSION 40 MG SUSPDR.PKT GT SCH (06:07)
[2020-03-10] MEDS: HYDROGEN PEROXIDE 3% 118 ML BOTTLE TP SCH ×2 (07:20→21:36)
[2020-03-10 07:46] VITALS: BP 118/78
[2020-03-10] MEDS: PROTEIN SUPPLEMENT (PROSTAT) 30 ML LIQUID GT SCH ×2 (08:14→17:33)
[2020-03-10] MEDS: DULOXETINE 20 MG CAPSULE.DR GT SCH (08:14)
[2020-03-10] MEDS: VITAMINS A AND D OINT TP SCH (08:14)
[2020-03-10] MEDS: COD LIVER OIL/ZINC OXIDE OINT 113 GM TUBE TP SCH ×2 (08:14→20:37)
[2020-03-10] MEDS: FINASTERIDE 5 MG TABLET GT SCH (08:14)
[2020-03-10 20:00] VITALS: BP 124/64
[2020-03-10] MEDS: MULTIVIT, IRON, MIN NO. 8, FA TABLET GT SCH (20:37)
[2020-03-11] MEDS: JEVITY 1.2 1000 ML LIQUID GT PRN ×2 (02:00→18:15)
[2020-03-11] MEDS: PANTOPRAZOLE ORAL SUSPENSION 40 MG SUSPDR.PKT GT SCH (06:22)
[2020-03-11 07:41] VITALS: BP 126/73
[2020-03-11] MEDS: FINASTERIDE 5 MG TABLET GT SCH (08:41)
[2020-03-11] MEDS: PROTEIN SUPPLEMENT (PROSTAT) 30 ML LIQUID GT SCH ×2 (08:41→17:31)
[2020-03-11] MEDS: DULOXETINE 20 MG CAPSULE.DR GT SCH (08:41)
[2020-03-11] MEDS: COD LIVER OIL/ZINC OXIDE OINT 113 GM TUBE TP SCH ×2 (08:41→21:14)
[2020-03-11] MEDS: VITAMINS A AND D OINT TP SCH (08:41)
[2020-03-11] MEDS: HYDROGEN PEROXIDE 3% 118 ML BOTTLE TP SCH ×2 (09:10→21:04)
[2020-03-11 20:11] VITALS: BP 120/69
[2020-03-11] MEDS: MULTIVIT, IRON, MIN NO. 8, FA TABLET GT SCH (21:14)
[2020-03-12] MEDS: PANTOPRAZOLE ORAL SUSPENSION 40 MG SUSPDR.PKT GT SCH (05:13)
[2020-03-12 07:43] VITALS: BP 114/65
[2020-03-12] MEDS: HYDROGEN PEROXIDE 3% 118 ML BOTTLE TP SCH ×2 (08:13→21:21)
[2020-03-12] MEDS: FINASTERIDE 5 MG TABLET GT SCH (09:53)
[2020-03-12] MEDS: DULOXETINE 20 MG CAPSULE.DR GT SCH (09:53)
[2020-03-12] MEDS: PROTEIN SUPPLEMENT (PROSTAT) 30 ML LIQUID GT SCH ×2 (09:54→17:45)
[2020-03-12] MEDS: VITAMINS A AND D OINT TP SCH (09:54)
[2020-03-12] MEDS: COD LIVER OIL/ZINC OXIDE OINT 113 GM TUBE TP SCH ×2 (09:54→21:00)
[2020-03-12] MEDS: JEVITY 1.2 1000 ML LIQUID GT PRN (13:24)
[2020-03-12 20:05] VITALS: BP 144/68
[2020-03-12] MEDS: MULTIVIT, IRON, MIN NO. 8, FA TABLET GT SCH (21:00)
[2020-03-13] MEDS: JEVITY 1.2 1000 ML LIQUID GT PRN (03:15)
[2020-03-13] MEDS: PANTOPRAZOLE ORAL SUSPENSION 40 MG SUSPDR.PKT GT SCH (06:01)
[2020-03-13 07:52] VITALS: BP 130/62
[2020-03-13] MEDS: FINASTERIDE 5 MG TABLET GT SCH (08:32)
[2020-03-13] MEDS: VITAMINS A AND D OINT TP SCH (08:32)
[2020-03-13] MEDS: DULOXETINE 20 MG CAPSULE.DR GT SCH (08:32)
[2020-03-13] MEDS: COD LIVER OIL/ZINC OXIDE OINT 113 GM TUBE TP SCH ×2 (08:32→21:10)
[2020-03-13] MEDS: PROTEIN SUPPLEMENT (PROSTAT) 30 ML LIQUID GT SCH ×2 (08:32→16:25)
[2020-03-13] MEDS: HYDROGEN PEROXIDE 3% 118 ML BOTTLE TP SCH ×3 (08:44→20:50)
[2020-03-13 20:08] VITALS: BP 135/51
[2020-03-13] MEDS: MULTIVIT, IRON, MIN NO. 8, FA TABLET GT SCH (21:10)
[2020-03-14] MEDS: PANTOPRAZOLE ORAL SUSPENSION 40 MG SUSPDR.PKT GT SCH (05:21)
[2020-03-14] MEDS: HYDROGEN PEROXIDE 3% 118 ML BOTTLE TP SCH ×2 (07:25→21:39)
[2020-03-14 08:08] VITALS: BP 122/73
[2020-03-14] MEDS: DULOXETINE 20 MG CAPSULE.DR GT SCH (08:30)
[2020-03-14] MEDS: PROTEIN SUPPLEMENT (PROSTAT) 30 ML LIQUID GT SCH ×2 (08:30→16:28)
[2020-03-14] MEDS: VITAMINS A AND D OINT TP SCH (08:30)
[2020-03-14] MEDS: FINASTERIDE 5 MG TABLET GT SCH (08:30)
[2020-03-14] MEDS: COD LIVER OIL/ZINC OXIDE OINT 113 GM TUBE TP SCH ×2 (08:30→20:13)
[2020-03-14 20:13] VITALS: BP 108/57
[2020-03-14] MEDS: MULTIVIT, IRON, MIN NO. 8, FA TABLET GT SCH (20:13)
[2020-03-15] MEDS: JEVITY 1.2 1000 ML LIQUID GT PRN ×2 (01:27→16:23)
[2020-03-15] MEDS: PANTOPRAZOLE ORAL SUSPENSION 40 MG SUSPDR.PKT GT SCH (05:31)
[2020-03-15 07:32] VITALS: BP 118/58
[2020-03-15] MEDS: HYDROGEN PEROXIDE 3% 118 ML BOTTLE TP SCH ×2 (09:10→21:03)
[2020-03-15] MEDS: COD LIVER OIL/ZINC OXIDE OINT 113 GM TUBE TP SCH ×2 (09:40→21:15)
[2020-03-15] MEDS: FINASTERIDE 5 MG TABLET GT SCH (09:41)
[2020-03-15] MEDS: VITAMINS A AND D OINT TP SCH (09:41)
[2020-03-15] MEDS: PROTEIN SUPPLEMENT (PROSTAT) 30 ML LIQUID GT SCH ×2 (09:41→16:19)
[2020-03-15] MEDS: DULOXETINE 20 MG CAPSULE.DR GT SCH (09:42)
--- NOTE | 2020-03-15 11:30 | NUR ---
Seen by Nichole OLSON with no new order.
--- NOTE | 2020-03-15 12:00 | NUR ---
Seen by Ellen Owens with no new order.
--- NOTE | 2020-03-15 16:51 | NUR ---
Pt's , Bobby, called and spoke to Pt. All comfort and safety measures in place. Will continue to monitor.
[2020-03-15 20:24] VITALS: BP 131/71
[2020-03-15] MEDS: MULTIVIT, IRON, MIN NO. 8, FA TABLET GT SCH (21:15)
[2020-03-15] MEDS: ACETAMINOPHEN 650 MG/20 ML UDC- SA PATIENTS-PAIN ONLY GT PRN (21:16)
[2020-03-16] MEDS: PANTOPRAZOLE ORAL SUSPENSION 40 MG SUSPDR.PKT GT SCH (05:47)
[2020-03-16 06:41] LABS: BASOPHILS % (AUTO) 0.3 % (0.0-2.0); EOSINOPHILS # (AUTO) 0.2 K/uL (0.0-0.7); EOSINOPHILS % (AUTO) 2.8 % (0.0-7.0); HEMOGLOBIN 13.5 g/dL (12.5-16.3); LYMPHOCYTES # (AUTO) 1.6 K/uL (20.0-40.0); LYMPHOCYTES % (AUTO) 23.8 % (20.5-51.5); MEAN CORPUSCULAR HEMOGLOBIN 29.8 uug (23.8-33.4); MEAN CORPUSCULAR HGB CONC 34 g/dL (32.5-36.3); MEAN CORPUSCULAR VOLUME 88.1 fL (73.0-96.2); MONOCYTES # (AUTO) 0.5 K/uL (2.0-10.0); MONOCYTES % (AUTO) 7.2 % (0.0-11.0); NEUTROPHILS # (AUTO) 4.4 K/uL (1.8-8.9); NEUTROPHILS % (AUTO) 65.9 % (38.5-71.5); PLATELET COUNT (AUTO) 256 K/uL (152-348); RED BLOOD CELL COUNT(AUTO) 4.55 MIL/uL (4.06-5.63); WHITE BLOOD COUNT (AUTO) 6.7 K/uL (3.6-10.2)
[2020-03-16 07:03] LABS: CREATININE 0.9 mg/dL (0.6-1.3); MAGNESIUM 1.9 mg/dL (1.8-2.4); PHOSPHOROUS 4.3 mg/dL (2.5-4.9); POTASSIUM 4.3 mmol/L (3.5-5.1)
[2020-03-16 08:09] VITALS: BP 112/46
[2020-03-16] MEDS: DULOXETINE 20 MG CAPSULE.DR GT SCH (08:10)
[2020-03-16] MEDS: FINASTERIDE 5 MG TABLET GT SCH (08:10)
[2020-03-16] MEDS: PROTEIN SUPPLEMENT (PROSTAT) 30 ML LIQUID GT SCH ×2 (08:10→17:28)
[2020-03-16] MEDS: COD LIVER OIL/ZINC OXIDE OINT 113 GM TUBE TP SCH ×2 (08:11→21:38)
[2020-03-16] MEDS: NEOMY/BACITRA/POLYMYXIN B OINT UD PACKET TP SCH (08:11)
[2020-03-16] MEDS: VITAMINS A AND D OINT TP SCH (08:11)
[2020-03-16] MEDS: HYDROGEN PEROXIDE 3% 118 ML BOTTLE TP SCH ×2 (09:26→20:53)
[2020-03-16] MEDS: JEVITY 1.2 1000 ML LIQUID GT PRN (12:34)
[2020-03-16 20:00] VITALS: BP 139/49
[2020-03-16] MEDS: MULTIVIT, IRON, MIN NO. 8, FA TABLET GT SCH (21:38)
[2020-03-17] MEDS: JEVITY 1.2 1000 ML LIQUID GT PRN ×2 (04:02→20:45)
[2020-03-17] MEDS: ONDANSETRON HCL 4 MG TABLET GT PRN (04:05)
[2020-03-17] MEDS: PANTOPRAZOLE ORAL SUSPENSION 40 MG SUSPDR.PKT GT SCH (05:14)
[2020-03-17 07:36] VITALS: BP 106/66
[2020-03-17] MEDS: HYDROGEN PEROXIDE 3% 118 ML BOTTLE TP SCH ×2 (07:50→20:43)
[2020-03-17] MEDS: NEOMY/BACITRA/POLYMYXIN B OINT UD PACKET TP SCH (09:00)
[2020-03-17] MEDS: VITAMINS A AND D OINT TP SCH (09:00)
[2020-03-17] MEDS: DULOXETINE 20 MG CAPSULE.DR GT SCH (09:18)
[2020-03-17] MEDS: FINASTERIDE 5 MG TABLET GT SCH (09:18)
[2020-03-17] MEDS: PROTEIN SUPPLEMENT (PROSTAT) 30 ML LIQUID GT SCH ×2 (09:19→17:55)
[2020-03-17] MEDS: COD LIVER OIL/ZINC OXIDE OINT 113 GM TUBE TP SCH ×2 (09:19→20:44)
--- NOTE | 2020-03-17 10:00 | NUR ---
Seen and examined by Dr Smith,no new orders.
--- NOTE | 2020-03-17 12:28 | NUR ---
Left message to Dr Luther,with Teena,regarding the psych consult,f/u from last week.
--- NOTE | 2020-03-17 16:00 | NUR ---
Seen and examined by Dr Emanuel ,with new orders noted,He spoke to pt's Bobby and explain to her he will start on Zipresa 25 mg every 6 hours Prn agitation.Consent obtained from Bobby,pt's .
[2020-03-17 20:00] VITALS: BP 114/59
[2020-03-17] MEDS: MULTIVIT, IRON, MIN NO. 8, FA TABLET GT SCH (20:44)
[2020-03-17] MEDS: ACETAMINOPHEN 650 MG/20 ML UDC- SA PATIENTS-PAIN ONLY GT PRN (20:45)
[2020-03-18] MEDS: PANTOPRAZOLE ORAL SUSPENSION 40 MG SUSPDR.PKT GT SCH (05:36)
[2020-03-18 07:30] VITALS: BP 110/63
[2020-03-18] MEDS: DULOXETINE 20 MG CAPSULE.DR GT SCH (08:27)
[2020-03-18] MEDS: COD LIVER OIL/ZINC OXIDE OINT 113 GM TUBE TP SCH ×2 (08:28→21:19)
[2020-03-18] MEDS: FINASTERIDE 5 MG TABLET GT SCH (08:28)
[2020-03-18] MEDS: PROTEIN SUPPLEMENT (PROSTAT) 30 ML LIQUID GT SCH ×2 (08:28→17:26)
[2020-03-18] MEDS: VITAMINS A AND D OINT TP SCH (09:00)
[2020-03-18] MEDS: HYDROGEN PEROXIDE 3% 118 ML BOTTLE TP SCH ×2 (09:00→21:04)
[2020-03-18] MEDS: NEOMY/BACITRA/POLYMYXIN B OINT UD PACKET TP SCH (09:00)
--- NOTE | 2020-03-18 09:04 | NUR ---
DR. WEN (PSYCH) SIGNED CONSENT FOR ZYPREXA.
[2020-03-18] MEDS: JEVITY 1.2 1000 ML LIQUID GT PRN (13:59)
--- NOTE | 2020-03-18 14:17 | NUR ---
SW called patient's Bobby [phone] to check in. Bobby was available and willing to speak with this SW. Bobby expressed feeling a bit anxious because she has not seen her in nearly 2 months, and inquired about when she would be able to see him. Bobby expressed her concerns about patient not understanding why she has not come to visit, although Bobby stated that she speaks with him on the telephone every day and tries to explain to him as to why she has not visited. SW allowed Bobby to express her thoughts and feelings. SW validated Bobby's feelings, provided her with supportive counseling, which Bobby expressed gratitude for. SW assured Bobby that the patient continues to be well taken care of by the staff, and that the number one priority for the facility was the health and safety of staff and patients. Bobby expressed understanding and agreement. MARIETTA informed Bobby that at this time, the facility continues to follow the visitation restrictions guidelines set forth by [facility] and that [facility] has not provided facilities with any updates as to when the restrictions would be lifted. Bobby expressed understanding. MARIETTA informed Bobby that the facility will be transitioning over to using ZOOM for video chat, and asked Bobby if she had access to using ZOOM. Bobby stated that she would work on getting access. MARIETTA stated that SW will send Bobby the instructions on how to utilize ZOOM for video chat. Bobby expressed understanding and gratitude. SW will continue to be available to Bobby, as needed.
[2020-03-18 20:00] VITALS: BP 131/87
[2020-03-18] MEDS: MULTIVIT, IRON, MIN NO. 8, FA TABLET GT SCH (21:19)
[2020-03-19] MEDS: PANTOPRAZOLE ORAL SUSPENSION 40 MG SUSPDR.PKT GT SCH (05:10)
[2020-03-19 07:31] VITALS: BP 132/65
[2020-03-19] MEDS: HYDROGEN PEROXIDE 3% 118 ML BOTTLE TP SCH ×2 (08:08→21:04)
[2020-03-19] MEDS: FINASTERIDE 5 MG TABLET GT SCH (09:14)
[2020-03-19] MEDS: PROTEIN SUPPLEMENT (PROSTAT) 30 ML LIQUID GT SCH ×2 (09:14→17:23)
[2020-03-19] MEDS: COD LIVER OIL/ZINC OXIDE OINT 113 GM TUBE TP SCH ×2 (09:14→21:16)
[2020-03-19] MEDS: DULOXETINE 20 MG CAPSULE.DR GT SCH (09:14)
[2020-03-19] MEDS: VITAMINS A AND D OINT TP SCH (09:15)
[2020-03-19] MEDS: NEOMY/BACITRA/POLYMYXIN B OINT UD PACKET TP SCH (09:17)
[2020-03-19] MEDS: JEVITY 1.2 1000 ML LIQUID GT PRN (10:12)
[2020-03-19 20:00] VITALS: BP 132/74
[2020-03-19] MEDS: OLANZAPINE 2.5 MG TABLET GT PRN (21:00)
[2020-03-19] MEDS: MULTIVIT, IRON, MIN NO. 8, FA TABLET GT SCH (21:16)
[2020-03-20] MEDS: JEVITY 1.2 1000 ML LIQUID GT PRN ×2 (00:48→18:16)
[2020-03-20] MEDS: ACETAMINOPHEN 650 MG/20 ML UDC- SA PATIENTS-PAIN ONLY GT PRN ×2 (05:00→21:33)
[2020-03-20] MEDS: PANTOPRAZOLE ORAL SUSPENSION 40 MG SUSPDR.PKT GT SCH (05:18)
[2020-03-20 07:40] VITALS: BP 128/60
[2020-03-20] MEDS: HYDROGEN PEROXIDE 3% 118 ML BOTTLE TP SCH ×2 (08:34→21:00)
[2020-03-20] MEDS: FINASTERIDE 5 MG TABLET GT SCH (09:30)
[2020-03-20] MEDS: DULOXETINE 20 MG CAPSULE.DR GT SCH (09:32)
[2020-03-20] MEDS: NEOMY/BACITRA/POLYMYXIN B OINT UD PACKET TP SCH (09:33)
[2020-03-20] MEDS: PROTEIN SUPPLEMENT (PROSTAT) 30 ML LIQUID GT SCH ×2 (09:33→16:50)
[2020-03-20] MEDS: COD LIVER OIL/ZINC OXIDE OINT 113 GM TUBE TP SCH ×2 (09:33→21:33)
[2020-03-20] MEDS: VITAMINS A AND D OINT TP SCH (09:33)
[2020-03-20 20:00] VITALS: BP 134/89
[2020-03-20] MEDS: MULTIVIT, IRON, MIN NO. 8, FA TABLET GT SCH (21:32)
[2020-03-21] MEDS: OLANZAPINE 2.5 MG TABLET GT PRN (00:36)
[2020-03-21] MEDS: PANTOPRAZOLE ORAL SUSPENSION 40 MG SUSPDR.PKT GT SCH (06:07)
[2020-03-21] MEDS: HYDROGEN PEROXIDE 3% 118 ML BOTTLE TP SCH ×2 (07:25→21:07)
[2020-03-21 07:29] VITALS: BP 147/79
[2020-03-21] MEDS: FINASTERIDE 5 MG TABLET GT SCH (08:35)
[2020-03-21] MEDS: COD LIVER OIL/ZINC OXIDE OINT 113 GM TUBE TP SCH ×2 (08:35→21:28)
[2020-03-21] MEDS: DULOXETINE 20 MG CAPSULE.DR GT SCH (08:35)
[2020-03-21] MEDS: PROTEIN SUPPLEMENT (PROSTAT) 30 ML LIQUID GT SCH ×2 (08:35→16:02)
[2020-03-21] MEDS: NEOMY/BACITRA/POLYMYXIN B OINT UD PACKET TP SCH (08:35)
[2020-03-21] MEDS: VITAMINS A AND D OINT TP SCH (08:35)
--- NOTE | 2020-03-21 12:32 | NUR ---
RT. UPPER THIGH LOCAL TX D/C D/T SITE HEALED.
--- NOTE | 2020-03-21 18:00 | NUR ---
RT KURT AND ALE WERE NOTIFIED RE: TRACHEAL SLIGHT BLEEDING AND RT KURT STATED THAT HE WILLDO TRACHEAL COOL LAVAGE.WILL CONT. TO MONITOR.
[2020-03-21] MEDS: JEVITY 1.2 1000 ML LIQUID GT PRN (18:01)
[2020-03-21 20:21] VITALS: BP 140/80
[2020-03-21] MEDS: MULTIVIT, IRON, MIN NO. 8, FA TABLET GT SCH (21:28)
--- NOTE | 2020-03-22 06:00 | NUR ---
Afebrile,trach is intact and patent, no trach bleeding noted at this time, no respiratory distress noted, 02 sat @ 98%, will continue monitor.
[2020-03-22] MEDS: PANTOPRAZOLE ORAL SUSPENSION 40 MG SUSPDR.PKT GT SCH (06:13)
[2020-03-22] MEDS: JEVITY 1.2 1000 ML LIQUID GT PRN (06:35)
[2020-03-22 07:46] VITALS: BP 130/80
[2020-03-22] MEDS: DULOXETINE 20 MG CAPSULE.DR GT SCH (08:51)
[2020-03-22] MEDS: VITAMINS A AND D OINT TP SCH (09:01)
[2020-03-22] MEDS: FINASTERIDE 5 MG TABLET GT SCH (09:01)
[2020-03-22] MEDS: PROTEIN SUPPLEMENT (PROSTAT) 30 ML LIQUID GT SCH ×2 (09:01→17:54)
[2020-03-22] MEDS: COD LIVER OIL/ZINC OXIDE OINT 113 GM TUBE TP SCH ×2 (09:01→21:32)
[2020-03-22] MEDS: HYDROGEN PEROXIDE 3% 118 ML BOTTLE TP SCH ×2 (09:05→21:24)
--- NOTE | 2020-03-22 12:00 | NUR ---
PT. WAS SEEN BY CLAYTON Barclay AND AWARE OF TRACHEAL SLIGHT BLOODY SECRETIONS AT THE END OF SHIFT YESTERDAY AND THAT THEY SUBSIDED TOTALLY AND ALSO DR. HERNANDEZ WAS NOTIFIED ABOUT IT AND WITH NNO.DR. HERNANDEZ AWARE TOO OF PAST PSYCHIATRIC CONSULTATION AND CURRENT PRN MEDICATION OF ZYPREXA AND EFFECTIVE M/B PT'S MOANING AND YELLING CONSIDERABLY LESS TO NONE EPISODES.
--- NOTE | 2020-03-22 12:17 | NUR ---
MARIETTA sent patient's Bobby an email letting her know that effective March 23, video sessions with the patient would be through ZOOM.
[2020-03-22 20:21] VITALS: BP 132/81
[2020-03-22] MEDS: MULTIVIT, IRON, MIN NO. 8, FA TABLET GT SCH (21:32)
[2020-03-23] MEDS: JEVITY 1.2 1000 ML LIQUID GT PRN (01:34)
--- NOTE | 2020-03-23 06:03 | NUR ---
No bleeding from trach noted at this time, 02 sat @ 99%, no signs of any distress noted, will continue monitor.
[2020-03-23] MEDS: PANTOPRAZOLE ORAL SUSPENSION 40 MG SUSPDR.PKT GT SCH (06:36)
[2020-03-23 07:31] VITALS: BP 118/70
[2020-03-23] MEDS: COD LIVER OIL/ZINC OXIDE OINT 113 GM TUBE TP SCH ×2 (08:23→20:49)
[2020-03-23] MEDS: DULOXETINE 20 MG CAPSULE.DR GT SCH (08:23)
[2020-03-23] MEDS: PROTEIN SUPPLEMENT (PROSTAT) 30 ML LIQUID GT SCH ×2 (08:23→17:10)
[2020-03-23] MEDS: VITAMINS A AND D OINT TP SCH (08:23)
[2020-03-23] MEDS: FINASTERIDE 5 MG TABLET GT SCH (08:23)
[2020-03-23] MEDS: HYDROGEN PEROXIDE 3% 118 ML BOTTLE TP SCH ×2 (09:41→19:03)
[2020-03-23] MEDS: MULTIVIT, IRON, MIN NO. 8, FA TABLET GT SCH (20:49)
[2020-03-23 20:55] VITALS: BP 138/78
[2020-03-24] MEDS: PANTOPRAZOLE ORAL SUSPENSION 40 MG SUSPDR.PKT GT SCH (06:04)
[2020-03-24 07:44] VITALS: BP 118/71
[2020-03-24] MEDS: FINASTERIDE 5 MG TABLET GT SCH (09:18)
[2020-03-24] MEDS: PROTEIN SUPPLEMENT (PROSTAT) 30 ML LIQUID GT SCH ×2 (09:18→17:00)
[2020-03-24] MEDS: DULOXETINE 20 MG CAPSULE.DR GT SCH (09:18)
[2020-03-24] MEDS: COD LIVER OIL/ZINC OXIDE OINT 113 GM TUBE TP SCH ×2 (09:18→20:26)
[2020-03-24] MEDS: VITAMINS A AND D OINT TP SCH (09:19)
[2020-03-24] MEDS: HYDROGEN PEROXIDE 3% 118 ML BOTTLE TP SCH ×2 (09:21→21:43)
[2020-03-24] MEDS: MULTIVIT, IRON, MIN NO. 8, FA TABLET GT SCH (20:26)
[2020-03-24 23:26] VITALS: BP 139/78
[2020-03-25] MEDS: JEVITY 1.2 1000 ML LIQUID GT PRN (03:51)
[2020-03-25] MEDS: PANTOPRAZOLE ORAL SUSPENSION 40 MG SUSPDR.PKT GT SCH (05:42)
[2020-03-25 07:41] VITALS: BP 123/84
[2020-03-25] MEDS: VITAMINS A AND D OINT TP SCH (08:06)
[2020-03-25] MEDS: COD LIVER OIL/ZINC OXIDE OINT 113 GM TUBE TP SCH ×2 (08:06→21:00)
[2020-03-25] MEDS: FINASTERIDE 5 MG TABLET GT SCH (08:06)
[2020-03-25] MEDS: DULOXETINE 20 MG CAPSULE.DR GT SCH (08:06)
[2020-03-25] MEDS: PROTEIN SUPPLEMENT (PROSTAT) 30 ML LIQUID GT SCH ×2 (08:06→17:21)
[2020-03-25] MEDS: HYDROGEN PEROXIDE 3% 118 ML BOTTLE TP SCH ×2 (09:00→21:15)
[2020-03-25] MEDS: MAG HYDROX/AL HYDROX/SIMETH 30 ML LIQUID UDC GT PRN (17:21)
[2020-03-25 20:21] VITALS: BP 134/78
[2020-03-25] MEDS: MULTIVIT, IRON, MIN NO. 8, FA TABLET GT SCH (21:00)
[2020-03-25] MEDS: OLANZAPINE 2.5 MG TABLET GT PRN (21:04)
[2020-03-26] MEDS: JEVITY 1.2 1000 ML LIQUID GT PRN ×2 (03:00→19:42)
[2020-03-26] MEDS: MAG HYDROX/AL HYDROX/SIMETH 30 ML LIQUID UDC GT PRN ×2 (03:18→14:39)
[2020-03-26] MEDS: PANTOPRAZOLE ORAL SUSPENSION 40 MG SUSPDR.PKT GT SCH (05:40)
[2020-03-26 07:35] VITALS: BP 146/78
[2020-03-26] MEDS: FINASTERIDE 5 MG TABLET GT SCH (08:11)
[2020-03-26] MEDS: PROTEIN SUPPLEMENT (PROSTAT) 30 ML LIQUID GT SCH ×2 (08:11→17:23)
[2020-03-26] MEDS: VITAMINS A AND D OINT TP SCH (08:11)
[2020-03-26] MEDS: DULOXETINE 20 MG CAPSULE.DR GT SCH (08:11)
[2020-03-26] MEDS: COD LIVER OIL/ZINC OXIDE OINT 113 GM TUBE TP SCH ×2 (08:11→20:32)
[2020-03-26] MEDS: ONDANSETRON HCL 4 MG TABLET GT PRN (08:12)
[2020-03-26] MEDS: HYDROGEN PEROXIDE 3% 118 ML BOTTLE TP SCH ×2 (09:00→21:05)
[2020-03-26 20:15] VITALS: BP 106/70
[2020-03-26] MEDS: MULTIVIT, IRON, MIN NO. 8, FA TABLET GT SCH (20:32)
[2020-03-27] MEDS: PANTOPRAZOLE ORAL SUSPENSION 40 MG SUSPDR.PKT GT SCH (05:39)
[2020-03-27 07:42] VITALS: BP 119/74
[2020-03-27] MEDS: DULOXETINE 20 MG CAPSULE.DR GT SCH (08:00)
[2020-03-27] MEDS: PROTEIN SUPPLEMENT (PROSTAT) 30 ML LIQUID GT SCH ×2 (08:00→17:26)
[2020-03-27] MEDS: VITAMINS A AND D OINT TP SCH (08:00)
[2020-03-27] MEDS: FINASTERIDE 5 MG TABLET GT SCH (08:00)
[2020-03-27] MEDS: COD LIVER OIL/ZINC OXIDE OINT 113 GM TUBE TP SCH ×2 (08:00→21:32)
[2020-03-27] MEDS: HYDROGEN PEROXIDE 3% 118 ML BOTTLE TP SCH ×2 (09:20→21:21)
[2020-03-27] MEDS: JEVITY 1.2 1000 ML LIQUID GT PRN (11:56)
[2020-03-27] MEDS: MAG HYDROX/AL HYDROX/SIMETH 30 ML LIQUID UDC GT PRN (17:38)
[2020-03-27] MEDS: MULTIVIT, IRON, MIN NO. 8, FA TABLET GT SCH (21:32)
[2020-03-27 21:41] VITALS: BP 125/73
[2020-03-28] MEDS: JEVITY 1.2 1000 ML LIQUID GT PRN ×2 (01:28→18:05)
[2020-03-28] MEDS: PANTOPRAZOLE ORAL SUSPENSION 40 MG SUSPDR.PKT GT SCH (05:36)
[2020-03-28 07:39] VITALS: BP 105/60
[2020-03-28] MEDS: FINASTERIDE 5 MG TABLET GT SCH (08:37)
[2020-03-28] MEDS: PROTEIN SUPPLEMENT (PROSTAT) 30 ML LIQUID GT SCH ×2 (08:37→17:00)
[2020-03-28] MEDS: VITAMINS A AND D OINT TP SCH (08:37)
[2020-03-28] MEDS: COD LIVER OIL/ZINC OXIDE OINT 113 GM TUBE TP SCH ×2 (08:37→20:35)
[2020-03-28] MEDS: DULOXETINE 20 MG CAPSULE.DR GT SCH (08:37)
[2020-03-28] MEDS: HYDROGEN PEROXIDE 3% 118 ML BOTTLE TP SCH ×2 (09:44→20:34)
[2020-03-28] MEDS: MULTIVIT, IRON, MIN NO. 8, FA TABLET GT SCH (20:35)
[2020-03-28 20:54] VITALS: BP 145/81
[2020-03-29] MEDS: PANTOPRAZOLE ORAL SUSPENSION 40 MG SUSPDR.PKT GT SCH (05:37)
[2020-03-29 08:02] VITALS: BP 139/66
[2020-03-29] MEDS: COD LIVER OIL/ZINC OXIDE OINT 113 GM TUBE TP SCH ×2 (08:33→20:26)
[2020-03-29] MEDS: PROTEIN SUPPLEMENT (PROSTAT) 30 ML LIQUID GT SCH ×2 (08:33→17:18)
[2020-03-29] MEDS: DULOXETINE 20 MG CAPSULE.DR GT SCH (08:33)
[2020-03-29] MEDS: FINASTERIDE 5 MG TABLET GT SCH (08:33)
[2020-03-29] MEDS: VITAMINS A AND D OINT TP SCH (08:34)
[2020-03-29] MEDS: HYDROGEN PEROXIDE 3% 118 ML BOTTLE TP SCH ×2 (09:19→21:43)
--- NOTE | 2020-03-29 10:54 | NUR ---
Seen by Ellen Owens, with no new order.
[2020-03-29] MEDS: JEVITY 1.2 1000 ML LIQUID GT PRN (14:35)
[2020-03-29] MEDS: MULTIVIT, IRON, MIN NO. 8, FA TABLET GT SCH (20:26)
[2020-03-29 21:08] VITALS: BP 144/84
[2020-03-30] MEDS: JEVITY 1.2 1000 ML LIQUID GT PRN ×2 (02:18→17:51)
[2020-03-30] MEDS: PANTOPRAZOLE ORAL SUSPENSION 40 MG SUSPDR.PKT GT SCH (05:18)
[2020-03-30 07:47] VITALS: BP 136/80
[2020-03-30] MEDS: DULOXETINE 20 MG CAPSULE.DR GT SCH (08:42)
[2020-03-30] MEDS: PROTEIN SUPPLEMENT (PROSTAT) 30 ML LIQUID GT SCH ×2 (08:42→17:42)
[2020-03-30] MEDS: FINASTERIDE 5 MG TABLET GT SCH (08:42)
[2020-03-30] MEDS: COD LIVER OIL/ZINC OXIDE OINT 113 GM TUBE TP SCH ×2 (08:42→21:00)
[2020-03-30] MEDS: VITAMINS A AND D OINT TP SCH (08:42)
[2020-03-30] MEDS: HYDROGEN PEROXIDE 3% 118 ML BOTTLE TP SCH ×2 (09:14→20:38)
[2020-03-30 20:07] VITALS: BP 150/70
[2020-03-30] MEDS: MULTIVIT, IRON, MIN NO. 8, FA TABLET GT SCH (21:00)
[2020-03-31] MEDS: ACETAMINOPHEN 650 MG/20 ML UDC- SA PATIENTS-PAIN ONLY GT PRN (04:00)
[2020-03-31] MEDS: PANTOPRAZOLE ORAL SUSPENSION 40 MG SUSPDR.PKT GT SCH (06:25)
[2020-03-31 08:03] VITALS: BP 118/57
[2020-03-31] MEDS: COD LIVER OIL/ZINC OXIDE OINT 113 GM TUBE TP SCH ×2 (08:52→21:22)
[2020-03-31] MEDS: FINASTERIDE 5 MG TABLET GT SCH (08:52)
[2020-03-31] MEDS: PROTEIN SUPPLEMENT (PROSTAT) 30 ML LIQUID GT SCH ×2 (08:52→17:27)
[2020-03-31] MEDS: DULOXETINE 20 MG CAPSULE.DR GT SCH (08:52)
[2020-03-31] MEDS: VITAMINS A AND D OINT TP SCH (08:52)
[2020-03-31] MEDS: HYDROGEN PEROXIDE 3% 118 ML BOTTLE TP SCH ×2 (09:10→21:15)
--- NOTE | 2020-03-31 11:30 | NUR ---
RT reported bleeding from the trach site while doing routine procedure, Charge nurse made aware as well. Pt remains with no signs of pain at the moment, trach site cleaned and kept intact.
--- NOTE | 2020-03-31 17:07 | NUR ---
New orders to do the Baseline [facility] Covid 19 test requirement.
[2020-03-31 20:09] VITALS: BP 123/71
[2020-03-31] MEDS: MULTIVIT, IRON, MIN NO. 8, FA TABLET GT SCH (21:22)
[2020-04-01] MEDS: PANTOPRAZOLE ORAL SUSPENSION 40 MG SUSPDR.PKT GT SCH (05:45)
[2020-04-01 07:48] VITALS: BP 119/63
[2020-04-01] MEDS: COD LIVER OIL/ZINC OXIDE OINT 113 GM TUBE TP SCH ×2 (08:37→21:20)
[2020-04-01] MEDS: PROTEIN SUPPLEMENT (PROSTAT) 30 ML LIQUID GT SCH ×2 (08:37→17:21)
[2020-04-01] MEDS: VITAMINS A AND D OINT TP SCH (08:37)
[2020-04-01] MEDS: DULOXETINE 20 MG CAPSULE.DR GT SCH (08:37)
[2020-04-01] MEDS: FINASTERIDE 5 MG TABLET GT SCH (08:37)
[2020-04-01] MEDS: HYDROGEN PEROXIDE 3% 118 ML BOTTLE TP SCH ×2 (09:21→21:26)
--- NOTE | 2020-04-01 10:41 | NUR ---
RT REPORTED A SLIGHT BLOODY TRACHEAL SECRETIONS ,WILL BE GENTLY SUCTIONED NEEDED ,WILL CONT. TO MONITOR.
[2020-04-01] MEDS: OLANZAPINE 2.5 MG TABLET GT PRN (18:20)
[2020-04-01 20:12] VITALS: BP 136/66
[2020-04-01] MEDS: MULTIVIT, IRON, MIN NO. 8, FA TABLET GT SCH (21:20)
[2020-04-02] MEDS: OLANZAPINE 2.5 MG TABLET GT PRN (04:20)
[2020-04-02] MEDS: PANTOPRAZOLE ORAL SUSPENSION 40 MG SUSPDR.PKT GT SCH (05:10)
[2020-04-02 07:43] VITALS: BP 134/72
[2020-04-02] MEDS: FINASTERIDE 5 MG TABLET GT SCH (08:45)
[2020-04-02] MEDS: DULOXETINE 20 MG CAPSULE.DR GT SCH (08:45)
[2020-04-02] MEDS: PROTEIN SUPPLEMENT (PROSTAT) 30 ML LIQUID GT SCH ×2 (08:46→17:23)
[2020-04-02] MEDS: COD LIVER OIL/ZINC OXIDE OINT 113 GM TUBE TP SCH ×2 (08:46→21:40)
[2020-04-02] MEDS: VITAMINS A AND D OINT TP SCH (08:46)
[2020-04-02] MEDS: HYDROGEN PEROXIDE 3% 118 ML BOTTLE TP SCH ×2 (09:00→21:32)
--- NOTE | 2020-04-02 15:33 | NUR ---
NO TRACHEAL BLEEDING OBSERVED.
--- NOTE | 2020-04-02 17:00 | NUR ---
SEEN BY DR. APOORVA HUNETR AND WITH NNO.
--- NOTE | 2020-04-02 19:55 | NUR ---
PT. NEGATIVE FOR COVID 19 TEST.
[2020-04-02 20:28] VITALS: BP 125/68
[2020-04-02] MEDS: MULTIVIT, IRON, MIN NO. 8, FA TABLET GT SCH (21:40)
[2020-04-03] MEDS: PANTOPRAZOLE ORAL SUSPENSION 40 MG SUSPDR.PKT GT SCH (06:10)
[2020-04-03] MEDS: HYDROGEN PEROXIDE 3% 118 ML BOTTLE TP SCH ×2 (07:14→21:00)
[2020-04-03 07:35] VITALS: BP 123/81
[2020-04-03] MEDS: DULOXETINE 20 MG CAPSULE.DR GT SCH (09:19)
[2020-04-03] MEDS: PROTEIN SUPPLEMENT (PROSTAT) 30 ML LIQUID GT SCH ×2 (09:20→17:15)
[2020-04-03] MEDS: FINASTERIDE 5 MG TABLET GT SCH (09:20)
[2020-04-03] MEDS: VITAMINS A AND D OINT TP SCH (09:20)
[2020-04-03] MEDS: COD LIVER OIL/ZINC OXIDE OINT 113 GM TUBE TP SCH ×2 (09:20→21:08)
[2020-04-03] MEDS: JEVITY 1.2 1000 ML LIQUID GT PRN (09:21)
[2020-04-03] MEDS: ACETAMINOPHEN 650 MG/20 ML UDC- SA PATIENTS-PAIN ONLY GT PRN (09:23)
--- NOTE | 2020-04-03 10:41 | NUR ---
PT. WAS SEEN AND EXAMINED BY DR. JOHNSON AND AWARE OF TRACHEAL BLEEDING AT THIS TIME AND WITH NEW ORDERS CARRIED OUT.
[2020-04-03 20:02] VITALS: BP 131/68
[2020-04-03] MEDS: MULTIVIT, IRON, MIN NO. 8, FA TABLET GT SCH (21:08)
[2020-04-04] MEDS: JEVITY 1.2 1000 ML LIQUID GT PRN ×2 (02:00→17:43)
[2020-04-04] MEDS: PANTOPRAZOLE ORAL SUSPENSION 40 MG SUSPDR.PKT GT SCH (05:58)
[2020-04-04 08:30] VITALS: BP 129/80
[2020-04-04] MEDS: COD LIVER OIL/ZINC OXIDE OINT 113 GM TUBE TP SCH ×2 (08:30→21:53)
[2020-04-04] MEDS: DULOXETINE 20 MG CAPSULE.DR GT SCH (08:30)
[2020-04-04] MEDS: PROTEIN SUPPLEMENT (PROSTAT) 30 ML LIQUID GT SCH ×2 (08:30→17:29)
[2020-04-04] MEDS: FINASTERIDE 5 MG TABLET GT SCH (08:30)
[2020-04-04] MEDS: VITAMINS A AND D OINT TP SCH (08:30)
[2020-04-04] MEDS: HYDROGEN PEROXIDE 3% 118 ML BOTTLE TP SCH ×2 (09:09→21:25)
[2020-04-04 20:24] VITALS: BP 126/70
[2020-04-04] MEDS: MULTIVIT, IRON, MIN NO. 8, FA TABLET GT SCH (21:53)
[2020-04-04] MEDS: ONDANSETRON HCL 4 MG TABLET GT PRN (21:54)
[2020-04-05] MEDS: PANTOPRAZOLE ORAL SUSPENSION 40 MG SUSPDR.PKT GT SCH (05:50)
[2020-04-05] MEDS: VITAMINS A AND D OINT TP SCH (08:19)
[2020-04-05] MEDS: COD LIVER OIL/ZINC OXIDE OINT 113 GM TUBE TP SCH ×2 (08:19→20:43)
[2020-04-05] MEDS: PROTEIN SUPPLEMENT (PROSTAT) 30 ML LIQUID GT SCH ×2 (08:19→17:00)
[2020-04-05] MEDS: DULOXETINE 20 MG CAPSULE.DR GT SCH (08:19)
[2020-04-05] MEDS: FINASTERIDE 5 MG TABLET GT SCH (08:19)
[2020-04-05 08:21] LABS: BASOPHILS % (AUTO) 0.4 % (0.0-2.0); EOSINOPHILS # (AUTO) 0.3 K/uL (0.0-0.7); EOSINOPHILS % (AUTO) 4.1 % (0.0-7.0); HEMATOCRIT 40.9 % (36.7-47.1); HEMOGLOBIN 13.4 g/dL (12.5-16.3); LYMPHOCYTES # (AUTO) 1.9 K/uL (20.0-40.0); LYMPHOCYTES % (AUTO) 29.6 % (20.5-51.5); MEAN CORPUSCULAR HEMOGLOBIN 29.4 uug (23.8-33.4); MEAN CORPUSCULAR HGB CONC 33 g/dL (32.5-36.3); MEAN CORPUSCULAR VOLUME 89.8 fL (73.0-96.2); MONOCYTES # (AUTO) 0.4 K/uL (2.0-10.0); MONOCYTES % (AUTO) 6.1 % (0.0-11.0); NEUTROPHILS # (AUTO) 3.8 K/uL (1.8-8.9); NEUTROPHILS % (AUTO) 59.8 % (38.5-71.5); PLATELET COUNT (AUTO) 215 K/uL (152-348); RED BLOOD CELL COUNT(AUTO) 4.56 MIL/uL (4.06-5.63); WHITE BLOOD COUNT (AUTO) 6.4 K/uL (3.6-10.2)
[2020-04-05 08:28] LABS: CREATININE 0.8 mg/dL (0.6-1.3); POTASSIUM 4.4 mmol/L (3.5-5.1)
[2020-04-05] MEDS: HYDROGEN PEROXIDE 3% 118 ML BOTTLE TP SCH ×2 (09:00→21:38)
--- NOTE | 2020-04-05 09:00 | NUR ---
DR. APOORVA Hughes WAS CALLED AND AWARE OF MONTHLY WT FROM 156 TO 147# AND WITH NEW ORDER FOR REG. SOLE PAINTER ALVARO FOR WT. LOSS.
[2020-04-05 10:23] VITALS: BP 121/80
--- NOTE | 2020-04-05 12:50 | NUR ---
SEEN BY CLAYTON Barclay AND WITH NNO.
[2020-04-05] MEDS: MULTIVIT, IRON, MIN NO. 8, FA TABLET GT SCH (20:43)
[2020-04-05 21:06] VITALS: BP 126/74
--- NOTE | 2020-04-05 21:16 | NUR ---
Patient is afebrile, trach is intact and patent, suctioned with moderate pale yellow secretions, no bleeding from trach noted. Gt feeding tolerating well, no nausea or vomiting noted, no gt residuals noted, kept clean and comfortable, will continue monitor.
[2020-04-06] MEDS: PANTOPRAZOLE ORAL SUSPENSION 40 MG SUSPDR.PKT GT SCH (05:15)
[2020-04-06] MEDS: JEVITY 1.2 1000 ML LIQUID GT PRN (06:57)
[2020-04-06 07:48] VITALS: BP 123/54
[2020-04-06] MEDS: HYDROGEN PEROXIDE 3% 118 ML BOTTLE TP SCH ×2 (09:06→21:25)
[2020-04-06] MEDS: DULOXETINE 20 MG CAPSULE.DR GT SCH (09:08)
[2020-04-06] MEDS: COD LIVER OIL/ZINC OXIDE OINT 113 GM TUBE TP SCH ×2 (09:08→20:27)
[2020-04-06] MEDS: VITAMINS A AND D OINT TP SCH (09:08)
[2020-04-06] MEDS: FINASTERIDE 5 MG TABLET GT SCH (09:08)
[2020-04-06] MEDS: PROTEIN SUPPLEMENT (PROSTAT) 30 ML LIQUID GT SCH (09:08)
--- NOTE | 2020-04-06 10:00 | NUR ---
spoke to Agatha regarding the dietary consult,due to wt loss,she will follow up.
--- NOTE | 2020-04-06 15:16 | NUR ---
dietary consult done by Agatha ,with new orders noted and carried out.
[2020-04-06] MEDS: MULTIVIT, IRON, MIN NO. 8, FA TABLET GT SCH (20:26)
[2020-04-06 20:40] VITALS: BP 126/80
[2020-04-07] MEDS: PANTOPRAZOLE ORAL SUSPENSION 40 MG SUSPDR.PKT GT SCH (05:18)
--- NOTE | 2020-04-07 07:15 | NUR ---
Finding pt with small amount of tracheal bleeding observed Rn/ RT aware. Iced lavaged practiced when suctioned done PRN.
[2020-04-07 07:43] VITALS: BP 134/83
[2020-04-07] MEDS: DULOXETINE 20 MG CAPSULE.DR GT SCH (08:59)
[2020-04-07] MEDS: FINASTERIDE 5 MG TABLET GT SCH (08:59)
[2020-04-07] MEDS: COD LIVER OIL/ZINC OXIDE OINT 113 GM TUBE TP SCH ×2 (08:59→21:00)
[2020-04-07] MEDS: VITAMINS A AND D OINT TP SCH (09:00)
[2020-04-07] MEDS: HYDROGEN PEROXIDE 3% 118 ML BOTTLE TP SCH ×2 (09:21→21:07)
--- NOTE | 2020-04-07 10:10 | NUR ---
Moderate amount of blood tinged secretions noted. SHOE MAKER aware. Ice lavage @ bedside. Will continue to monitor.
[2020-04-07 20:25] VITALS: BP 135/70
[2020-04-07] MEDS: MULTIVIT, IRON, MIN NO. 8, FA TABLET GT SCH (21:00)
[2020-04-08] MEDS: PANTOPRAZOLE ORAL SUSPENSION 40 MG SUSPDR.PKT GT SCH (05:27)
[2020-04-08 07:46] VITALS: BP 127/82
[2020-04-08] MEDS: FINASTERIDE 5 MG TABLET GT SCH (08:37)
[2020-04-08] MEDS: DULOXETINE 20 MG CAPSULE.DR GT SCH (08:37)
[2020-04-08] MEDS: VITAMINS A AND D OINT TP SCH (08:38)
[2020-04-08] MEDS: COD LIVER OIL/ZINC OXIDE OINT 113 GM TUBE TP SCH ×2 (08:38→20:54)
[2020-04-08] MEDS: HYDROGEN PEROXIDE 3% 118 ML BOTTLE TP SCH ×2 (09:10→21:32)
[2020-04-08] MEDS: JEVITY 1.2 1000 ML LIQUID GT PRN (12:21)
[2020-04-08] MEDS: ACETAMINOPHEN 650 MG/20 ML UDC- SA PATIENTS-PAIN ONLY GT PRN (14:08)
--- NOTE | 2020-04-08 14:20 | NUR ---
MARIETTA called patient's Bobby [phone] to let her know that the next IDT meeting for the patient has been scheduled for 04/13/2020 at 11am, and asked Bobby if she would like to participate in the meeting via speaker phone. Bobby stated that she has a doctor's appointment on Sunday, and would not be available. MARIETTA then checked in with Bobby to see how she was coping with the ongoing restrictions due to the pandemic. Bobby stated she is doing well, but that she misses the patient (her ), and is hoping to be able to visit him soon. MARIETTA informed Bobby that there have not been any updates provided to the facility by [facility] regarding the visitation restrictions, and therefore the restrictions continue to remain in place until further instructions and guidelines are provided by [facility]. Bobby expressed understanding and expressed her gratitude to all the staff members for their ongoing work with taking good care of the patients. Bobby stated that she did not have any concerns at this time. MARIETTA will continue to be available to Bobby, as needed.
[2020-04-08 20:00] VITALS: BP 127/80
[2020-04-08] MEDS: MULTIVIT, IRON, MIN NO. 8, FA TABLET GT SCH (20:54)
[2020-04-09] MEDS: JEVITY 1.2 1000 ML LIQUID GT PRN ×2 (01:33→18:22)
[2020-04-09] MEDS: PANTOPRAZOLE ORAL SUSPENSION 40 MG SUSPDR.PKT GT SCH (05:41)
[2020-04-09 07:36] VITALS: BP 128/87
[2020-04-09] MEDS: FINASTERIDE 5 MG TABLET GT SCH (08:37)
[2020-04-09] MEDS: DULOXETINE 20 MG CAPSULE.DR GT SCH (08:37)
[2020-04-09] MEDS: COD LIVER OIL/ZINC OXIDE OINT 113 GM TUBE TP SCH ×2 (08:37→21:00)
[2020-04-09] MEDS: VITAMINS A AND D OINT TP SCH (08:37)
[2020-04-09] MEDS: HYDROGEN PEROXIDE 3% 118 ML BOTTLE TP SCH ×2 (09:00→21:46)
[2020-04-09 20:26] VITALS: BP 142/80
[2020-04-09] MEDS: MULTIVIT, IRON, MIN NO. 8, FA TABLET GT SCH (21:00)
[2020-04-09] MEDS: ACETAMINOPHEN 650 MG/20 ML UDC- SA PATIENTS-PAIN ONLY GT PRN (22:12)
[2020-04-10] MEDS: OLANZAPINE 2.5 MG TABLET GT PRN (02:00)
[2020-04-10] MEDS: PANTOPRAZOLE ORAL SUSPENSION 40 MG SUSPDR.PKT GT SCH (06:09)
[2020-04-10] MEDS: HYDROGEN PEROXIDE 3% 118 ML BOTTLE TP SCH ×2 (07:13→21:20)
[2020-04-10 07:43] VITALS: BP 136/72
[2020-04-10] MEDS: DULOXETINE 20 MG CAPSULE.DR GT SCH (08:45)
[2020-04-10] MEDS: FINASTERIDE 5 MG TABLET GT SCH (08:45)
[2020-04-10] MEDS: COD LIVER OIL/ZINC OXIDE OINT 113 GM TUBE TP SCH ×2 (08:46→20:52)
[2020-04-10] MEDS: VITAMINS A AND D OINT TP SCH (08:46)
[2020-04-10] MEDS: ONDANSETRON HCL 4 MG TABLET GT PRN (12:05)
[2020-04-10] MEDS: JEVITY 1.2 1000 ML LIQUID GT PRN (12:05)
[2020-04-10] MEDS: ACETAMINOPHEN 650 MG/20 ML UDC- SA PATIENTS-PAIN ONLY GT PRN (12:12)
[2020-04-10 20:00] VITALS: BP 147/84
[2020-04-10] MEDS: MULTIVIT, IRON, MIN NO. 8, FA TABLET GT SCH (20:52)
[2020-04-11] MEDS: JEVITY 1.2 1000 ML LIQUID GT PRN (01:30)
[2020-04-11] MEDS: PANTOPRAZOLE ORAL SUSPENSION 40 MG SUSPDR.PKT GT SCH (05:49)
[2020-04-11 07:32] VITALS: BP 123/57
[2020-04-11] MEDS: DULOXETINE 20 MG CAPSULE.DR GT SCH (09:02)
[2020-04-11] MEDS: COD LIVER OIL/ZINC OXIDE OINT 113 GM TUBE TP SCH ×2 (09:03→21:56)
[2020-04-11] MEDS: FINASTERIDE 5 MG TABLET GT SCH (09:03)
[2020-04-11] MEDS: VITAMINS A AND D OINT TP SCH (09:03)
[2020-04-11] MEDS: HYDROGEN PEROXIDE 3% 118 ML BOTTLE TP SCH ×2 (09:09→21:11)
[2020-04-11 20:52] VITALS: BP 124/60
[2020-04-11] MEDS: MULTIVIT, IRON, MIN NO. 8, FA TABLET GT SCH (21:56)
[2020-04-12] MEDS: PANTOPRAZOLE ORAL SUSPENSION 40 MG SUSPDR.PKT GT SCH (06:23)
[2020-04-12 07:27] VITALS: BP 135/63
[2020-04-12] MEDS: DULOXETINE 20 MG CAPSULE.DR GT SCH (08:30)
[2020-04-12] MEDS: FINASTERIDE 5 MG TABLET GT SCH (08:30)
[2020-04-12] MEDS: JEVITY 1.2 1000 ML LIQUID GT PRN ×2 (08:31→22:59)
[2020-04-12] MEDS: VITAMINS A AND D OINT TP SCH (08:31)
[2020-04-12] MEDS: COD LIVER OIL/ZINC OXIDE OINT 113 GM TUBE TP SCH ×2 (08:31→21:26)
[2020-04-12] MEDS: HYDROGEN PEROXIDE 3% 118 ML BOTTLE TP SCH ×2 (09:00→21:20)
[2020-04-12 20:29] VITALS: BP 130/64
[2020-04-12] MEDS: MULTIVIT, IRON, MIN NO. 8, FA TABLET GT SCH (21:26)
[2020-04-13] MEDS: PANTOPRAZOLE ORAL SUSPENSION 40 MG SUSPDR.PKT GT SCH (05:54)
[2020-04-13 07:26] VITALS: BP 142/71
[2020-04-13] MEDS: VITAMINS A AND D OINT TP SCH (08:47)
[2020-04-13] MEDS: DULOXETINE 20 MG CAPSULE.DR GT SCH (08:47)
[2020-04-13] MEDS: COD LIVER OIL/ZINC OXIDE OINT 113 GM TUBE TP SCH ×2 (08:47→20:38)
[2020-04-13] MEDS: FINASTERIDE 5 MG TABLET GT SCH (08:47)
[2020-04-13] MEDS: HYDROGEN PEROXIDE 3% 118 ML BOTTLE TP SCH ×2 (09:27→21:07)
--- NOTE | 2020-04-13 14:05 | NUR ---
Pharmacy Update from Today's 04/13/20 IDT Meeting VS: Temp 98.3 HR 81 BP 142/71 LABS: (from 04/05/20) Wbc 6.4 H/H 13.4/40.9 Plt 215 Na 140 K 4.4 Cl 104 CO2 30 BUN/SCr 33/0.8 BS 108 Ca 9.3 phos 3.5 Mg 2.0 MEDICATION USE REVIEW: > Pt is not any anti-psych or anti-seizure medications > Pt evaluated by psych MD d/t agitation unrelieved by pain medications (pt received doses of norco to little effect) and thus likely unrelated to pain. Pt with h/o previous mental health diagnoses, now started on zyprexa 2.5mg q6hr prn since 03/18/20 for severe agitation m/b restlessness. Pt often moans/yells loudly, restlessly moves indiscriminately during episodes, and is unrelieved by staff support as well. Used x 5 in March since started. No SEs noted. Per staff report, is effective and pt does not require often. > Pt previously on heparin, d/c'd d/t on and off minor trach bleeding > Pt now on Cymbalta 40mg daily for pain management, last CrCl ~100 ml/min > Pt on protonix 40mg daily 11/03 for GI prophylaxis, possible GI upset per MD > Pt continued on finasteride 5mg daily for BPH > PRN MED USAGE: (March) Tylenol for pain/temp used x8 Zofran PRN N/V used x2 Artificial Tears used x0 Mylanta PRN used x0 NEW ORDERS NOTED: > Covid test 03/31 negative > Prostat d/c'd 04/06 > TF Jevity 1.2 increased from 70ml/20hrs to 80ml/20hrs per dietary 04/06 Patient was reviewed and discussed in detail with all medication changes noted. Following last IDT, psych consult ordered as pt continued with occasional severe episodes of agitation unrelieved by pain medication or staff support. Per psych MD, pt with h/o prescribed psychiatric medications for encephalopathic agitation and behavior. Started zyprexa PRN low dose 2.5mg, pt only received occasionally since start, to effect per staff report. SEs and episodes monitored, no SEs noted at this time. Will continue to follow
--- NOTE | 2020-04-13 14:20 | NUR ---
INTERDISCIPLINARY PLAN OF CARE CONFERENCE was held today. Patient's was not available to participate in the meeting. Dr. Trujillo and the Interdisciplinary Team reviewed the current plan of care in detail. RN reported on patient's medical condition. No major changes in condition were reported. See RN IDT conference notes. Dietary reported on patient's recent weight loss, and stated that dietary will continue to monitor and intervene, as needed. See all disciplines IDT notes and physician's progress notes for additional details.
[2020-04-13 20:05] VITALS: BP 119/71
[2020-04-13] MEDS: MULTIVIT, IRON, MIN NO. 8, FA TABLET GT SCH (20:37)
[2020-04-14] MEDS: JEVITY 1.2 1000 ML LIQUID GT PRN (03:04)
[2020-04-14] MEDS: PANTOPRAZOLE ORAL SUSPENSION 40 MG SUSPDR.PKT GT SCH (05:59)
[2020-04-14 07:47] VITALS: BP 126/64
[2020-04-14] MEDS: COD LIVER OIL/ZINC OXIDE OINT 113 GM TUBE TP SCH ×2 (09:02→20:33)
[2020-04-14] MEDS: VITAMINS A AND D OINT TP SCH (09:02)
[2020-04-14] MEDS: FINASTERIDE 5 MG TABLET GT SCH (09:02)
[2020-04-14] MEDS: DULOXETINE 20 MG CAPSULE.DR GT SCH (09:02)
[2020-04-14] MEDS: HYDROGEN PEROXIDE 3% 118 ML BOTTLE TP SCH ×2 (09:04→21:29)
[2020-04-14 20:07] VITALS: BP 128/60
[2020-04-14] MEDS: MULTIVIT, IRON, MIN NO. 8, FA TABLET GT SCH (20:33)
[2020-04-15] MEDS: JEVITY 1.2 1000 ML LIQUID GT PRN ×2 (04:02→23:00)
[2020-04-15] MEDS: PANTOPRAZOLE ORAL SUSPENSION 40 MG SUSPDR.PKT GT SCH (06:09)
[2020-04-15 07:47] VITALS: BP 132/61
[2020-04-15] MEDS: HYDROGEN PEROXIDE 3% 118 ML BOTTLE TP SCH ×2 (09:10→21:28)
[2020-04-15] MEDS: COD LIVER OIL/ZINC OXIDE OINT 113 GM TUBE TP SCH ×2 (09:13→20:45)
[2020-04-15] MEDS: FINASTERIDE 5 MG TABLET GT SCH (09:13)
[2020-04-15] MEDS: VITAMINS A AND D OINT TP SCH (09:13)
[2020-04-15] MEDS: DULOXETINE 20 MG CAPSULE.DR GT SCH (09:13)
[2020-04-15] MEDS: OLANZAPINE 2.5 MG TABLET GT PRN (14:30)
[2020-04-15 20:00] VITALS: BP 131/68
[2020-04-15] MEDS: MULTIVIT, IRON, MIN NO. 8, FA TABLET GT SCH (20:45)
[2020-04-16] MEDS: OLANZAPINE 2.5 MG TABLET GT PRN (03:23)
[2020-04-16] MEDS: PANTOPRAZOLE ORAL SUSPENSION 40 MG SUSPDR.PKT GT SCH (06:18)
[2020-04-16 07:44] VITALS: BP 161/87
[2020-04-16] MEDS: ACETAMINOPHEN 650 MG/20 ML UDC- SA PATIENTS-PAIN ONLY GT PRN (07:57)
[2020-04-16] MEDS: FINASTERIDE 5 MG TABLET GT SCH (08:04)
[2020-04-16] MEDS: DULOXETINE 20 MG CAPSULE.DR GT SCH (08:04)
[2020-04-16] MEDS: VITAMINS A AND D OINT TP SCH (08:04)
[2020-04-16] MEDS: COD LIVER OIL/ZINC OXIDE OINT 113 GM TUBE TP SCH ×2 (08:04→20:27)
[2020-04-16] MEDS: HYDROGEN PEROXIDE 3% 118 ML BOTTLE TP SCH ×2 (09:10→21:33)
--- NOTE | 2020-04-16 11:30 | NUR ---
NOTES FROM DR. APOORVA EVANS AND NNO.
[2020-04-16] MEDS: JEVITY 1.2 1000 ML LIQUID GT PRN (11:39)
[2020-04-16 19:59] VITALS: BP 130/67
[2020-04-16] MEDS: MULTIVIT, IRON, MIN NO. 8, FA TABLET GT SCH (20:27)
[2020-04-17] MEDS: OLANZAPINE 2.5 MG TABLET GT PRN (01:43)
[2020-04-17] MEDS: JEVITY 1.2 1000 ML LIQUID GT PRN (01:43)
[2020-04-17] MEDS: PANTOPRAZOLE ORAL SUSPENSION 40 MG SUSPDR.PKT GT SCH (05:07)
[2020-04-17 07:37] VITALS: BP 111/81
[2020-04-17] MEDS: HYDROGEN PEROXIDE 3% 118 ML BOTTLE TP SCH ×2 (09:16→21:08)
[2020-04-17] MEDS: COD LIVER OIL/ZINC OXIDE OINT 113 GM TUBE TP SCH ×2 (09:21→20:16)
[2020-04-17] MEDS: VITAMINS A AND D OINT TP SCH (09:21)
[2020-04-17] MEDS: FINASTERIDE 5 MG TABLET GT SCH (09:21)
[2020-04-17] MEDS: DULOXETINE 20 MG CAPSULE.DR GT SCH (09:21)
[2020-04-17 20:05] VITALS: BP 136/68
[2020-04-17] MEDS: MULTIVIT, IRON, MIN NO. 8, FA TABLET GT SCH (20:16)
[2020-04-18] MEDS: OLANZAPINE 2.5 MG TABLET GT PRN ×2 (01:52→20:41)
[2020-04-18] MEDS: PANTOPRAZOLE ORAL SUSPENSION 40 MG SUSPDR.PKT GT SCH (05:04)
[2020-04-18 08:58] VITALS: BP 127/84
[2020-04-18] MEDS: FINASTERIDE 5 MG TABLET GT SCH (09:18)
[2020-04-18] MEDS: DULOXETINE 20 MG CAPSULE.DR GT SCH (09:18)
[2020-04-18] MEDS: COD LIVER OIL/ZINC OXIDE OINT 113 GM TUBE TP SCH ×2 (09:19→20:40)
[2020-04-18] MEDS: VITAMINS A AND D OINT TP SCH (09:20)
[2020-04-18] MEDS: HYDROGEN PEROXIDE 3% 118 ML BOTTLE TP SCH ×2 (09:48→21:20)
[2020-04-18] MEDS: ACETAMINOPHEN 650 MG/20 ML UDC- SA PATIENTS-PAIN ONLY GT PRN (13:36)
[2020-04-18 20:12] VITALS: BP 100/64
[2020-04-18] MEDS: MULTIVIT, IRON, MIN NO. 8, FA TABLET GT SCH (20:40)
[2020-04-19] MEDS: OLANZAPINE 2.5 MG TABLET GT PRN (02:51)
[2020-04-19] MEDS: JEVITY 1.2 1000 ML LIQUID GT PRN ×2 (02:51→16:58)
[2020-04-19] MEDS: PANTOPRAZOLE ORAL SUSPENSION 40 MG SUSPDR.PKT GT SCH (05:50)
[2020-04-19 08:04] VITALS: BP 115/79
[2020-04-19] MEDS: DULOXETINE 20 MG CAPSULE.DR GT SCH (08:41)
[2020-04-19] MEDS: FINASTERIDE 5 MG TABLET GT SCH (08:41)
[2020-04-19] MEDS: COD LIVER OIL/ZINC OXIDE OINT 113 GM TUBE TP SCH ×2 (08:42→21:28)
[2020-04-19] MEDS: VITAMINS A AND D OINT TP SCH (08:42)
[2020-04-19] MEDS: HYDROGEN PEROXIDE 3% 118 ML BOTTLE TP SCH ×2 (09:10→21:22)
[2020-04-19] MEDS: ACETAMINOPHEN 650 MG/20 ML UDC- SA PATIENTS-PAIN ONLY GT PRN (17:15)
--- NOTE | 2020-04-19 17:35 | NUR ---
SEEN BY CLAYTON Barclay AND WITH NNO.
--- NOTE | 2020-04-19 17:44 | NUR ---
SEEN BY DR. SWANN AND WITH NNO.
[2020-04-19 19:54] VITALS: BP 120/47
[2020-04-19] MEDS: MULTIVIT, IRON, MIN NO. 8, FA TABLET GT SCH (21:28)
[2020-04-20] MEDS: ACETAMINOPHEN 650 MG/20 ML UDC- SA PATIENTS-PAIN ONLY GT PRN ×2 (05:00→15:09)
[2020-04-20] MEDS: PANTOPRAZOLE ORAL SUSPENSION 40 MG SUSPDR.PKT GT SCH (05:05)
[2020-04-20 07:18] VITALS: BP 119/75
[2020-04-20] MEDS: DULOXETINE 20 MG CAPSULE.DR GT SCH (08:09)
[2020-04-20] MEDS: FINASTERIDE 5 MG TABLET GT SCH (08:09)
[2020-04-20] MEDS: COD LIVER OIL/ZINC OXIDE OINT 113 GM TUBE TP SCH ×2 (08:09→21:18)
[2020-04-20] MEDS: VITAMINS A AND D OINT TP SCH (08:09)
[2020-04-20] MEDS: ONDANSETRON HCL 4 MG TABLET GT PRN (08:10)
[2020-04-20] MEDS: HYDROGEN PEROXIDE 3% 118 ML BOTTLE TP SCH ×2 (09:58→21:09)
[2020-04-20] MEDS: JEVITY 1.2 1000 ML LIQUID GT PRN (11:20)
[2020-04-20 19:47] VITALS: BP 109/53
[2020-04-20] MEDS: MULTIVIT, IRON, MIN NO. 8, FA TABLET GT SCH (21:17)
[2020-04-21] MEDS: JEVITY 1.2 1000 ML LIQUID GT PRN ×2 (01:00→15:45)
[2020-04-21] MEDS: OLANZAPINE 2.5 MG TABLET GT PRN (01:56)
[2020-04-21] MEDS: PANTOPRAZOLE ORAL SUSPENSION 40 MG SUSPDR.PKT GT SCH (06:15)
[2020-04-21] MEDS: HYDROGEN PEROXIDE 3% 118 ML BOTTLE TP SCH ×2 (07:25→21:16)
[2020-04-21 07:37] VITALS: BP 126/60
[2020-04-21] MEDS: DULOXETINE 20 MG CAPSULE.DR GT SCH (08:05)
[2020-04-21] MEDS: FINASTERIDE 5 MG TABLET GT SCH (08:05)
[2020-04-21] MEDS: COD LIVER OIL/ZINC OXIDE OINT 113 GM TUBE TP SCH ×2 (08:05→21:21)
[2020-04-21] MEDS: VITAMINS A AND D OINT TP SCH (08:05)
[2020-04-21] MEDS: ACETAMINOPHEN 650 MG/20 ML UDC- SA PATIENTS-PAIN ONLY GT PRN (08:06)
[2020-04-21 19:53] VITALS: BP 127/56
[2020-04-21 19:56] VITALS: BP 127/56
[2020-04-21] MEDS: MULTIVIT, IRON, MIN NO. 8, FA TABLET GT SCH (21:20)
[2020-04-22] MEDS: JEVITY 1.2 1000 ML LIQUID GT PRN (04:31)
[2020-04-22] MEDS: PANTOPRAZOLE ORAL SUSPENSION 40 MG SUSPDR.PKT GT SCH (05:26)
[2020-04-22 07:42] VITALS: BP 111/60
[2020-04-22] MEDS: DULOXETINE 20 MG CAPSULE.DR GT SCH (08:27)
[2020-04-22] MEDS: VITAMINS A AND D OINT TP SCH (08:27)
[2020-04-22] MEDS: FINASTERIDE 5 MG TABLET GT SCH (08:27)
[2020-04-22] MEDS: COD LIVER OIL/ZINC OXIDE OINT 113 GM TUBE TP SCH ×2 (08:27→21:15)
[2020-04-22] MEDS: HYDROGEN PEROXIDE 3% 118 ML BOTTLE TP SCH ×2 (09:10→21:56)
[2020-04-22] MEDS: OLANZAPINE 2.5 MG TABLET GT PRN (15:56)
[2020-04-22 19:57] VITALS: BP 136/65
[2020-04-22] MEDS: MULTIVIT, IRON, MIN NO. 8, FA TABLET GT SCH (21:15)
[2020-04-23] MEDS: OLANZAPINE 2.5 MG TABLET GT PRN
[2020-04-23] MEDS: JEVITY 1.2 1000 ML LIQUID GT PRN (04:14)
[2020-04-23] MEDS: PANTOPRAZOLE ORAL SUSPENSION 40 MG SUSPDR.PKT GT SCH (06:09)
[2020-04-23 07:42] VITALS: BP 138/74
[2020-04-23] MEDS: FINASTERIDE 5 MG TABLET GT SCH (08:34)
[2020-04-23] MEDS: DULOXETINE 20 MG CAPSULE.DR GT SCH (08:34)
[2020-04-23] MEDS: COD LIVER OIL/ZINC OXIDE OINT 113 GM TUBE TP SCH ×2 (08:35→21:18)
[2020-04-23] MEDS: VITAMINS A AND D OINT TP SCH (08:35)
[2020-04-23] MEDS: HYDROGEN PEROXIDE 3% 118 ML BOTTLE TP SCH ×2 (09:50→21:19)
[2020-04-23 13:50] LABS: BASOPHILS % (AUTO) 0.5 % (0.0-2.0); EOSINOPHILS # (AUTO) 0.2 K/uL (0.0-0.7); EOSINOPHILS % (AUTO) 2.7 % (0.0-7.0); HEMATOCRIT 40.5 % (36.7-47.1); HEMOGLOBIN 13.2 g/dL (12.5-16.3); LYMPHOCYTES # (AUTO) 1.5 K/uL (20.0-40.0); LYMPHOCYTES % (AUTO) 23.9 % (20.5-51.5); MEAN CORPUSCULAR HEMOGLOBIN 29.1 uug (23.8-33.4); MEAN CORPUSCULAR HGB CONC 33 g/dL (32.5-36.3); MEAN CORPUSCULAR VOLUME 89.1 fL (73.0-96.2); MONOCYTES # (AUTO) 0.4 K/uL (2.0-10.0); NEUTROPHILS # (AUTO) 4.1 K/uL (1.8-8.9); NEUTROPHILS % (AUTO) 66.9 % (38.5-71.5); PLATELET COUNT (AUTO) 193 K/uL (152-348); RED BLOOD CELL COUNT(AUTO) 4.55 MIL/uL (4.06-5.63); WHITE BLOOD COUNT (AUTO) 6.2 K/uL (3.6-10.2)
[2020-04-23 14:03] LABS: CARBON DIOXIDE 34 mmol/L (21-32); CHLORIDE 103 mmol/L (98-107); CREATININE 0.8 mg/dL (0.6-1.3); GLUCOSE 133 mg/dL (74-106); MAGNESIUM 2.1 mg/dL (1.8-2.4); PHOSPHOROUS 3.1 mg/dL (2.5-4.9); POTASSIUM 4.7 mmol/L (3.5-5.1); UREA NITROGEN, BLOOD 28 mg/dL (7-18)
[2020-04-23 20:30] VITALS: BP 125/92
[2020-04-23] MEDS: MULTIVIT, IRON, MIN NO. 8, FA TABLET GT SCH (21:18)
[2020-04-24] MEDS: PANTOPRAZOLE ORAL SUSPENSION 40 MG SUSPDR.PKT GT SCH (05:45)
[2020-04-24 07:52] VITALS: BP 159/85
[2020-04-24] MEDS: COD LIVER OIL/ZINC OXIDE OINT 113 GM TUBE TP SCH ×2 (08:39→21:13)
[2020-04-24] MEDS: FINASTERIDE 5 MG TABLET GT SCH (08:39)
[2020-04-24] MEDS: VITAMINS A AND D OINT TP SCH (08:39)
[2020-04-24] MEDS: DULOXETINE 20 MG CAPSULE.DR GT SCH (08:39)
[2020-04-24] MEDS: HYDROGEN PEROXIDE 3% 118 ML BOTTLE TP SCH ×2 (09:00→21:00)
[2020-04-24] MEDS: JEVITY 1.2 1000 ML LIQUID GT PRN ×2 (17:09→21:13)
[2020-04-24 20:54] VITALS: BP 137/64
[2020-04-24] MEDS: MULTIVIT, IRON, MIN NO. 8, FA TABLET GT SCH (21:13)
[2020-04-25] MEDS: ACETAMINOPHEN 650 MG/20 ML UDC- SA PATIENTS-PAIN ONLY GT PRN (04:00)
[2020-04-25] MEDS: PANTOPRAZOLE ORAL SUSPENSION 40 MG SUSPDR.PKT GT SCH (05:13)
[2020-04-25 07:42] VITALS: BP 134/77
[2020-04-25] MEDS: POLYVINYL ALCOHOL OPHT DROPS 15 ML BOTTLE EACHEYE PRN (08:36)
[2020-04-25] MEDS: DULOXETINE 20 MG CAPSULE.DR GT SCH (08:36)
[2020-04-25] MEDS: VITAMINS A AND D OINT TP SCH (08:36)
[2020-04-25] MEDS: FINASTERIDE 5 MG TABLET GT SCH (08:36)
[2020-04-25] MEDS: COD LIVER OIL/ZINC OXIDE OINT 113 GM TUBE TP SCH ×2 (08:36→21:48)
[2020-04-25] MEDS: ONDANSETRON HCL 4 MG TABLET GT PRN (08:37)
[2020-04-25] MEDS: HYDROGEN PEROXIDE 3% 118 ML BOTTLE TP SCH ×2 (09:10→21:50)
[2020-04-25 20:11] VITALS: BP 127/73
[2020-04-25] MEDS: MULTIVIT, IRON, MIN NO. 8, FA TABLET GT SCH (21:47)
[2020-04-26] MEDS: PANTOPRAZOLE ORAL SUSPENSION 40 MG SUSPDR.PKT GT SCH (05:12)
[2020-04-26] MEDS: ACETAMINOPHEN 650 MG/20 ML UDC- SA PATIENTS-PAIN ONLY GT PRN (05:13)
[2020-04-26] MEDS: JEVITY 1.2 1000 ML LIQUID GT PRN ×2 (07:20→23:01)
[2020-04-26 07:45] VITALS: BP 147/84
[2020-04-26 08:03] VITALS: BP 147/87
[2020-04-26] MEDS: HYDROGEN PEROXIDE 3% 118 ML BOTTLE TP SCH ×2 (09:56→21:20)
[2020-04-26] MEDS: VITAMINS A AND D OINT TP SCH (09:57)
[2020-04-26] MEDS: FINASTERIDE 5 MG TABLET GT SCH (09:57)
[2020-04-26] MEDS: COD LIVER OIL/ZINC OXIDE OINT 113 GM TUBE TP SCH ×2 (09:57→20:42)
[2020-04-26] MEDS: DULOXETINE 20 MG CAPSULE.DR GT SCH (09:58)
[2020-04-26 20:22] VITALS: BP 130/68
[2020-04-26] MEDS: MULTIVIT, IRON, MIN NO. 8, FA TABLET GT SCH (20:42)
[2020-04-26] MEDS: TRIAMCINOLONE ACET 0.1% CREAM 15 GM TUBE TP SCH (20:42)
[2020-04-26] MEDS: NYSTATIN CREAM 30 GM TUBE TP SCH (20:43)
[2020-04-27] MEDS: PANTOPRAZOLE ORAL SUSPENSION 40 MG SUSPDR.PKT GT SCH (05:39)
[2020-04-27 07:59] VITALS: BP 141/81
[2020-04-27] MEDS: FINASTERIDE 5 MG TABLET GT SCH (08:13)
[2020-04-27] MEDS: DULOXETINE 20 MG CAPSULE.DR GT SCH (08:13)
[2020-04-27] MEDS: COD LIVER OIL/ZINC OXIDE OINT 113 GM TUBE TP SCH ×2 (08:14→20:52)
[2020-04-27] MEDS: NYSTATIN CREAM 30 GM TUBE TP SCH ×2 (08:19→20:53)
[2020-04-27] MEDS: VITAMINS A AND D OINT TP SCH (08:19)
[2020-04-27] MEDS: TRIAMCINOLONE ACET 0.1% CREAM 15 GM TUBE TP SCH ×2 (08:19→20:52)
[2020-04-27] MEDS: HYDROGEN PEROXIDE 3% 118 ML BOTTLE TP SCH ×2 (09:06→21:21)
[2020-04-27] MEDS: JEVITY 1.2 1000 ML LIQUID GT PRN (12:31)
[2020-04-27 19:54] VITALS: BP 157/70
[2020-04-27] MEDS: MULTIVIT, IRON, MIN NO. 8, FA TABLET GT SCH (20:52)
[2020-04-27] MEDS: ONDANSETRON HCL 4 MG TABLET GT PRN (20:54)
[2020-04-28] MEDS: JEVITY 1.2 1000 ML LIQUID GT PRN (02:52)
[2020-04-28] MEDS: PANTOPRAZOLE ORAL SUSPENSION 40 MG SUSPDR.PKT GT SCH (06:03)
[2020-04-28] MEDS: HYDROGEN PEROXIDE 3% 118 ML BOTTLE TP SCH ×2 (07:26→21:13)
[2020-04-28 07:37] VITALS: BP 117/58
[2020-04-28] MEDS: FINASTERIDE 5 MG TABLET GT SCH (08:58)
[2020-04-28] MEDS: DULOXETINE 20 MG CAPSULE.DR GT SCH (08:58)
[2020-04-28] MEDS: COD LIVER OIL/ZINC OXIDE OINT 113 GM TUBE TP SCH ×2 (08:58→20:38)
[2020-04-28] MEDS: TRIAMCINOLONE ACET 0.1% CREAM 15 GM TUBE TP SCH ×2 (08:59→20:38)
[2020-04-28] MEDS: VITAMINS A AND D OINT TP SCH (08:59)
[2020-04-28] MEDS: NYSTATIN CREAM 30 GM TUBE TP SCH ×2 (08:59→20:38)
[2020-04-28] MEDS: OLANZAPINE 2.5 MG TABLET GT PRN ×2 (10:26→23:00)
[2020-04-28 20:06] VITALS: BP 117/66
[2020-04-28] MEDS: MULTIVIT, IRON, MIN NO. 8, FA TABLET GT SCH (20:38)
[2020-04-28] MEDS: ACETAMINOPHEN 650 MG/20 ML UDC- SA PATIENTS-PAIN ONLY GT PRN (20:39)
[2020-04-29] MEDS: PANTOPRAZOLE ORAL SUSPENSION 40 MG SUSPDR.PKT GT SCH (06:00)
[2020-04-29] MEDS: OLANZAPINE 2.5 MG TABLET GT PRN ×2 (06:00→21:10)
[2020-04-29 07:48] VITALS: BP 110/60
[2020-04-29] MEDS: DULOXETINE 20 MG CAPSULE.DR GT SCH (08:13)
[2020-04-29] MEDS: COD LIVER OIL/ZINC OXIDE OINT 113 GM TUBE TP SCH ×2 (08:14→21:08)
[2020-04-29] MEDS: VITAMINS A AND D OINT TP SCH (08:14)
[2020-04-29] MEDS: FINASTERIDE 5 MG TABLET GT SCH (08:14)
[2020-04-29] MEDS: NYSTATIN CREAM 30 GM TUBE TP SCH ×2 (08:14→21:08)
[2020-04-29] MEDS: TRIAMCINOLONE ACET 0.1% CREAM 15 GM TUBE TP SCH ×2 (08:14→21:08)
[2020-04-29] MEDS: JEVITY 1.2 1000 ML LIQUID GT PRN ×2 (08:16→22:39)
[2020-04-29] MEDS: HYDROGEN PEROXIDE 3% 118 ML BOTTLE TP SCH ×2 (09:10→21:00)
[2020-04-29] MEDS: ACETAMINOPHEN 650 MG/20 ML UDC- SA PATIENTS-PAIN ONLY GT PRN ×2 (10:41→17:41)
--- NOTE | 2020-04-29 10:44 | NUR ---
MARIETTA called and spoke with patient's Bobby this morning, . SW checked in with Bobby to see how she was doing, and if she had any concerns at this time. Bobby stated that she was doing well, however is hoping to be able to visit the patient soon. SW acknowledged patient's wishes, validated her feelings associated with missing the patient, but reminded Bobby that the health department continues to mandated visitation restrictions. Bobby expressed understanding. MARIETTA then informed Viola that the patient is due for his annual eye exam, and that Dr. Back was planning on scheduling patient eye exams in the coming days. MARIETTA asked Bobby if Bobby was fine with the patient being seen by Dr. Back for his annual eye exam, and Bobby stated yes. SW to schedule patient's annual optometry exam.
--- NOTE | 2020-04-29 14:21 | NUR ---
MARIETTA received a voicemail message from Patricia at Dr. Back's office [phone] Back will be at this facility on 05/07/2020 in order to see the patient for his annual eye exam.
[2020-04-29 20:00] VITALS: BP 122/53
[2020-04-29] MEDS: MULTIVIT, IRON, MIN NO. 8, FA TABLET GT SCH (21:08)
[2020-04-30] MEDS: ACETAMINOPHEN 650 MG/20 ML UDC- SA PATIENTS-PAIN ONLY GT PRN ×3 (02:16→16:38)
[2020-04-30] MEDS: PANTOPRAZOLE ORAL SUSPENSION 40 MG SUSPDR.PKT GT SCH (05:02)
[2020-04-30] MEDS: OLANZAPINE 2.5 MG TABLET GT PRN (07:01)
[2020-04-30 07:44] VITALS: BP 126/75
[2020-04-30] MEDS: FINASTERIDE 5 MG TABLET GT SCH (08:03)
[2020-04-30] MEDS: DULOXETINE 20 MG CAPSULE.DR GT SCH (08:03)
[2020-04-30] MEDS: COD LIVER OIL/ZINC OXIDE OINT 113 GM TUBE TP SCH ×2 (08:04→20:20)
[2020-04-30] MEDS: TRIAMCINOLONE ACET 0.1% CREAM 15 GM TUBE TP SCH ×2 (08:04→20:20)
[2020-04-30] MEDS: NYSTATIN CREAM 30 GM TUBE TP SCH ×2 (08:04→20:20)
[2020-04-30] MEDS: VITAMINS A AND D OINT TP SCH (08:04)
[2020-04-30] MEDS: HYDROGEN PEROXIDE 3% 118 ML BOTTLE TP SCH ×2 (09:25→18:58)
[2020-04-30] MEDS: JEVITY 1.2 1000 ML LIQUID GT PRN (12:16)
[2020-04-30 20:00] VITALS: BP 134/79
[2020-04-30] MEDS: MULTIVIT, IRON, MIN NO. 8, FA TABLET GT SCH (20:20)
[2020-05-01] MEDS: JEVITY 1.2 1000 ML LIQUID GT PRN ×2 (02:02→14:50)
[2020-05-01] MEDS: ACETAMINOPHEN 650 MG/20 ML UDC- SA PATIENTS-PAIN ONLY GT PRN ×3 (02:04→18:03)
[2020-05-01] MEDS: PANTOPRAZOLE ORAL SUSPENSION 40 MG SUSPDR.PKT GT SCH (06:12)
[2020-05-01 07:37] VITALS: BP 136/62
[2020-05-01] MEDS: HYDROGEN PEROXIDE 3% 118 ML BOTTLE TP SCH ×2 (07:56→21:53)
[2020-05-01] MEDS: COD LIVER OIL/ZINC OXIDE OINT 113 GM TUBE TP SCH ×2 (08:07→21:03)
[2020-05-01] MEDS: TRIAMCINOLONE ACET 0.1% CREAM 15 GM TUBE TP SCH ×2 (08:07→21:03)
[2020-05-01] MEDS: VITAMINS A AND D OINT TP SCH (08:07)
[2020-05-01] MEDS: FINASTERIDE 5 MG TABLET GT SCH (08:07)
[2020-05-01] MEDS: DULOXETINE 20 MG CAPSULE.DR GT SCH (08:07)
[2020-05-01] MEDS: NYSTATIN CREAM 30 GM TUBE TP SCH ×2 (08:07→21:03)
[2020-05-01 19:41] VITALS: BP 128/71
[2020-05-01] MEDS: MULTIVIT, IRON, MIN NO. 8, FA TABLET GT SCH (21:03)
[2020-05-01] MEDS: OLANZAPINE 2.5 MG TABLET GT PRN (21:04)
[2020-05-02] MEDS: ACETAMINOPHEN 650 MG/20 ML UDC- SA PATIENTS-PAIN ONLY GT PRN (01:55)
[2020-05-02] MEDS: PANTOPRAZOLE ORAL SUSPENSION 40 MG SUSPDR.PKT GT SCH (06:12)
[2020-05-02 07:39] VITALS: BP 132/64
[2020-05-02] MEDS: HYDROGEN PEROXIDE 3% 118 ML BOTTLE TP SCH ×2 (08:16→21:16)
[2020-05-02] MEDS: FINASTERIDE 5 MG TABLET GT SCH (08:27)
[2020-05-02] MEDS: TRIAMCINOLONE ACET 0.1% CREAM 15 GM TUBE TP SCH ×2 (08:27→21:50)
[2020-05-02] MEDS: DULOXETINE 20 MG CAPSULE.DR GT SCH (08:27)
[2020-05-02] MEDS: COD LIVER OIL/ZINC OXIDE OINT 113 GM TUBE TP SCH ×2 (08:27→21:50)
[2020-05-02] MEDS: NYSTATIN CREAM 30 GM TUBE TP SCH ×2 (08:27→21:50)
[2020-05-02] MEDS: VITAMINS A AND D OINT TP SCH (08:28)
[2020-05-02] MEDS: OLANZAPINE 2.5 MG TABLET GT PRN (09:28)
[2020-05-02 19:47] VITALS: BP 137/58
[2020-05-02] MEDS: MULTIVIT, IRON, MIN NO. 8, FA TABLET GT SCH (21:50)
[2020-05-03] MEDS: PANTOPRAZOLE ORAL SUSPENSION 40 MG SUSPDR.PKT GT SCH (06:00)
[2020-05-03 06:12] LABS: BASOPHILS % (AUTO) 0.2 % (0.0-2.0); EOSINOPHILS # (AUTO) 0.2 K/uL (0.0-0.7); EOSINOPHILS % (AUTO) 3.6 % (0.0-7.0); HEMATOCRIT 39.9 % (36.7-47.1); HEMOGLOBIN 13.3 g/dL (12.5-16.3); LYMPHOCYTES # (AUTO) 1.6 K/uL (20.0-40.0); LYMPHOCYTES % (AUTO) 27.1 % (20.5-51.5); MEAN CORPUSCULAR HEMOGLOBIN 29.7 uug (23.8-33.4); MEAN CORPUSCULAR HGB CONC 33 g/dL (32.5-36.3); MEAN CORPUSCULAR VOLUME 88.8 fL (73.0-96.2); MONOCYTES # (AUTO) 0.4 K/uL (2.0-10.0); MONOCYTES % (AUTO) 7.4 % (0.0-11.0); NEUTROPHILS # (AUTO) 3.6 K/uL (1.8-8.9); NEUTROPHILS % (AUTO) 61.7 % (38.5-71.5); PLATELET COUNT (AUTO) 208 K/uL (152-348); RED BLOOD CELL COUNT(AUTO) 4.49 MIL/uL (4.06-5.63); WHITE BLOOD COUNT (AUTO) 5.8 K/uL (3.6-10.2)
[2020-05-03 06:16] LABS: CREATININE 0.8 mg/dL (0.6-1.3); POTASSIUM 4.6 mmol/L (3.5-5.1)
[2020-05-03 07:38] VITALS: BP 132/43
[2020-05-03] MEDS: VITAMINS A AND D OINT TP SCH (08:37)
[2020-05-03] MEDS: DULOXETINE 20 MG CAPSULE.DR GT SCH (08:37)
[2020-05-03] MEDS: NYSTATIN CREAM 30 GM TUBE TP SCH ×2 (08:37→21:01)
[2020-05-03] MEDS: FINASTERIDE 5 MG TABLET GT SCH (08:37)
[2020-05-03] MEDS: TRIAMCINOLONE ACET 0.1% CREAM 15 GM TUBE TP SCH ×2 (08:37→21:01)
[2020-05-03] MEDS: COD LIVER OIL/ZINC OXIDE OINT 113 GM TUBE TP SCH ×2 (08:37→21:00)
[2020-05-03] MEDS: HYDROGEN PEROXIDE 3% 118 ML BOTTLE TP SCH ×2 (09:00→21:21)
[2020-05-03] MEDS: OLANZAPINE 2.5 MG TABLET GT PRN (12:17)
[2020-05-03] MEDS: ONDANSETRON HCL 4 MG TABLET GT PRN (14:10)
[2020-05-03] MEDS: JEVITY 1.2 1000 ML LIQUID GT PRN (14:13)
[2020-05-03 20:30] VITALS: BP 115/70
[2020-05-03] MEDS: MULTIVIT, IRON, MIN NO. 8, FA TABLET GT SCH (21:00)
[2020-05-04] MEDS: ACETAMINOPHEN 650 MG/20 ML UDC- SA PATIENTS-PAIN ONLY GT PRN ×2 (02:06→12:30)
[2020-05-04] MEDS: OLANZAPINE 2.5 MG TABLET GT PRN (02:40)
[2020-05-04] MEDS: PANTOPRAZOLE ORAL SUSPENSION 40 MG SUSPDR.PKT GT SCH (06:19)
[2020-05-04 07:17] VITALS: BP 127/70
[2020-05-04] MEDS: COD LIVER OIL/ZINC OXIDE OINT 113 GM TUBE TP SCH ×2 (09:12→21:22)
[2020-05-04] MEDS: NYSTATIN CREAM 30 GM TUBE TP SCH ×2 (09:12→21:22)
[2020-05-04] MEDS: HYDROGEN PEROXIDE 3% 118 ML BOTTLE TP SCH ×2 (09:12→21:28)
[2020-05-04] MEDS: FINASTERIDE 5 MG TABLET GT SCH (09:12)
[2020-05-04] MEDS: TRIAMCINOLONE ACET 0.1% CREAM 15 GM TUBE TP SCH ×2 (09:12→21:22)
[2020-05-04] MEDS: VITAMINS A AND D OINT TP SCH (09:12)
[2020-05-04] MEDS: DULOXETINE 20 MG CAPSULE.DR GT SCH (09:12)
--- NOTE | 2020-05-04 12:00 | NUR ---
SEEN BY CLAYTON Barclay AND WITH NNO.
[2020-05-04] MEDS: MAG HYDROX/AL HYDROX/SIMETH 30 ML LIQUID UDC GT PRN (12:30)
[2020-05-04] MEDS: ONDANSETRON HCL 4 MG TABLET GT PRN (12:32)
[2020-05-04] MEDS: JEVITY 1.2 1000 ML LIQUID GT PRN (15:54)
[2020-05-04 20:46] VITALS: BP 126/59
[2020-05-04] MEDS: MULTIVIT, IRON, MIN NO. 8, FA TABLET GT SCH (21:22)
[2020-05-05] MEDS: OLANZAPINE 2.5 MG TABLET GT PRN ×2 (03:45→14:13)
[2020-05-05] MEDS: PANTOPRAZOLE ORAL SUSPENSION 40 MG SUSPDR.PKT GT SCH (06:26)
[2020-05-05 07:43] VITALS: BP 121/66
[2020-05-05] MEDS: HYDROGEN PEROXIDE 3% 118 ML BOTTLE TP SCH ×2 (08:42→21:22)
[2020-05-05] MEDS: VITAMINS A AND D OINT TP SCH (09:00)
[2020-05-05] MEDS: TRIAMCINOLONE ACET 0.1% CREAM 15 GM TUBE TP SCH ×2 (09:00→20:51)
[2020-05-05] MEDS: COD LIVER OIL/ZINC OXIDE OINT 113 GM TUBE TP SCH ×2 (09:00→20:50)
[2020-05-05] MEDS: NYSTATIN CREAM 30 GM TUBE TP SCH ×2 (09:00→20:51)
[2020-05-05] MEDS: DULOXETINE 20 MG CAPSULE.DR GT SCH (09:44)
[2020-05-05] MEDS: FINASTERIDE 5 MG TABLET GT SCH (09:44)
[2020-05-05 20:49] VITALS: BP 123/65
[2020-05-05] MEDS: MULTIVIT, IRON, MIN NO. 8, FA TABLET GT SCH (20:50)
[2020-05-05] MEDS: JEVITY 1.2 1000 ML LIQUID GT PRN (22:59)
[2020-05-06] MEDS: OLANZAPINE 2.5 MG TABLET GT PRN (03:30)
[2020-05-06] MEDS: PANTOPRAZOLE ORAL SUSPENSION 40 MG SUSPDR.PKT GT SCH (06:20)
[2020-05-06 07:48] VITALS: BP 122/73
[2020-05-06] MEDS: DULOXETINE 20 MG CAPSULE.DR GT SCH (08:27)
[2020-05-06] MEDS: FINASTERIDE 5 MG TABLET GT SCH (08:27)
[2020-05-06] MEDS: COD LIVER OIL/ZINC OXIDE OINT 113 GM TUBE TP SCH ×2 (08:28→20:52)
[2020-05-06] MEDS: VITAMINS A AND D OINT TP SCH (08:40)
[2020-05-06] MEDS: TRIAMCINOLONE ACET 0.1% CREAM 15 GM TUBE TP SCH ×2 (08:40→20:53)
[2020-05-06] MEDS: NYSTATIN CREAM 30 GM TUBE TP SCH ×2 (08:40→20:53)
[2020-05-06] MEDS: HYDROGEN PEROXIDE 3% 118 ML BOTTLE TP SCH ×2 (09:00→21:00)
[2020-05-06 20:00] VITALS: BP 127/74
[2020-05-06] MEDS: MULTIVIT, IRON, MIN NO. 8, FA TABLET GT SCH (20:52)
[2020-05-07] MEDS: PANTOPRAZOLE ORAL SUSPENSION 40 MG SUSPDR.PKT GT SCH (06:02)
[2020-05-07 07:54] VITALS: BP 110/64
[2020-05-07] MEDS: TRIAMCINOLONE ACET 0.1% CREAM 15 GM TUBE TP SCH ×2 (09:04→20:30)
[2020-05-07] MEDS: FINASTERIDE 5 MG TABLET GT SCH (09:04)
[2020-05-07] MEDS: DULOXETINE 20 MG CAPSULE.DR GT SCH (09:04)
[2020-05-07] MEDS: COD LIVER OIL/ZINC OXIDE OINT 113 GM TUBE TP SCH ×2 (09:04→20:30)
[2020-05-07] MEDS: NYSTATIN CREAM 30 GM TUBE TP SCH ×2 (09:05→20:30)
[2020-05-07] MEDS: VITAMINS A AND D OINT TP SCH (09:05)
[2020-05-07] MEDS: HYDROGEN PEROXIDE 3% 118 ML BOTTLE TP SCH ×2 (09:10→21:20)
--- NOTE | 2020-05-07 10:28 | NUR ---
SEEN BY DR BORREGO WITH NEW ORDER NOTED AND CARRIED OUT.
--- NOTE | 2020-05-07 12:09 | NUR ---
notified new order by Dr. Back on tobradex 1 gtt to both eyes 4x/day/7days for conjunctivitis
[2020-05-07 20:18] VITALS: BP 137/60
[2020-05-07] MEDS: TOBRAMYCIN/DEXAMETH OPHT DROP 2.5 ML BOTTLE EACHEYE SCH (20:30)
[2020-05-07] MEDS: MULTIVIT, IRON, MIN NO. 8, FA TABLET GT SCH (20:30)
[2020-05-08] MEDS: OLANZAPINE 2.5 MG TABLET GT PRN ×2 (01:40→20:29)
[2020-05-08] MEDS: PANTOPRAZOLE ORAL SUSPENSION 40 MG SUSPDR.PKT GT SCH (05:21)
[2020-05-08 07:45] VITALS: BP 121/77
[2020-05-08] MEDS: DULOXETINE 20 MG CAPSULE.DR GT SCH (08:32)
[2020-05-08] MEDS: TRIAMCINOLONE ACET 0.1% CREAM 15 GM TUBE TP SCH ×2 (08:32→20:30)
[2020-05-08] MEDS: COD LIVER OIL/ZINC OXIDE OINT 113 GM TUBE TP SCH ×2 (08:32→20:30)
[2020-05-08] MEDS: TOBRAMYCIN/DEXAMETH OPHT DROP 2.5 ML BOTTLE EACHEYE SCH ×4 (08:32→20:30)
[2020-05-08] MEDS: FINASTERIDE 5 MG TABLET GT SCH (08:32)
[2020-05-08] MEDS: NYSTATIN CREAM 30 GM TUBE TP SCH ×2 (08:33→20:30)
[2020-05-08] MEDS: VITAMINS A AND D OINT TP SCH (08:33)
[2020-05-08] MEDS: HYDROGEN PEROXIDE 3% 118 ML BOTTLE TP SCH ×2 (09:10→21:20)
[2020-05-08] MEDS: JEVITY 1.2 1000 ML LIQUID GT PRN (11:26)
[2020-05-08 20:19] VITALS: BP 107/74
[2020-05-08] MEDS: MULTIVIT, IRON, MIN NO. 8, FA TABLET GT SCH (20:30)
[2020-05-09] MEDS: PANTOPRAZOLE ORAL SUSPENSION 40 MG SUSPDR.PKT GT SCH (05:09)
[2020-05-09 07:42] VITALS: BP 97/65
[2020-05-09] MEDS: HYDROGEN PEROXIDE 3% 118 ML BOTTLE TP SCH ×2 (09:00→21:16)
[2020-05-09] MEDS: COD LIVER OIL/ZINC OXIDE OINT 113 GM TUBE TP SCH ×2 (09:16→20:33)
[2020-05-09] MEDS: FINASTERIDE 5 MG TABLET GT SCH (09:16)
[2020-05-09] MEDS: TOBRAMYCIN/DEXAMETH OPHT DROP 2.5 ML BOTTLE EACHEYE SCH ×4 (09:16→20:33)
[2020-05-09] MEDS: DULOXETINE 20 MG CAPSULE.DR GT SCH (09:16)
[2020-05-09] MEDS: NYSTATIN CREAM 30 GM TUBE TP SCH ×2 (09:17→20:33)
[2020-05-09] MEDS: VITAMINS A AND D OINT TP SCH (09:17)
[2020-05-09] MEDS: TRIAMCINOLONE ACET 0.1% CREAM 15 GM TUBE TP SCH ×2 (09:17→20:33)
[2020-05-09] MEDS: JEVITY 1.2 1000 ML LIQUID GT PRN ×2 (12:14→23:21)
[2020-05-09] MEDS: ACETAMINOPHEN 650 MG/20 ML UDC- SA PATIENTS-PAIN ONLY GT PRN (17:01)
[2020-05-09] MEDS: OLANZAPINE 2.5 MG TABLET GT PRN (20:33)
[2020-05-09] MEDS: MULTIVIT, IRON, MIN NO. 8, FA TABLET GT SCH (20:33)
[2020-05-09 20:51] VITALS: BP 117/50
[2020-05-10] MEDS: PANTOPRAZOLE ORAL SUSPENSION 40 MG SUSPDR.PKT GT SCH (05:27)
[2020-05-10 07:25] VITALS: BP 110/65
[2020-05-10 07:25] LABS: BASOPHILS % (AUTO) 0.6 % (0.0-2.0); EOSINOPHILS # (AUTO) 0.1 K/uL (0.0-0.7); EOSINOPHILS % (AUTO) 1.6 % (0.0-7.0); HEMATOCRIT 37.4 % (36.7-47.1); HEMOGLOBIN 12.3 g/dL (12.5-16.3); LYMPHOCYTES # (AUTO) 1.4 K/uL (20.0-40.0); MEAN CORPUSCULAR HEMOGLOBIN 29.3 uug (23.8-33.4); MEAN CORPUSCULAR HGB CONC 33 g/dL (32.5-36.3); MEAN CORPUSCULAR VOLUME 89.3 fL (73.0-96.2); MONOCYTES # (AUTO) 0.5 K/uL (2.0-10.0); MONOCYTES % (AUTO) 7.2 % (0.0-11.0); NEUTROPHILS # (AUTO) 4.6 K/uL (1.8-8.9); NEUTROPHILS % (AUTO) 69.6 % (38.5-71.5); PLATELET COUNT (AUTO) 209 K/uL (152-348); RED BLOOD CELL COUNT(AUTO) 4.19 MIL/uL (4.06-5.63); WHITE BLOOD COUNT (AUTO) 6.6 K/uL (3.6-10.2)
[2020-05-10 07:42] LABS: CREATININE 0.8 mg/dL (0.6-1.3); MAGNESIUM 2.2 mg/dL (1.8-2.4); PHOSPHOROUS 3.4 mg/dL (2.5-4.9); POTASSIUM 4.9 mmol/L (3.5-5.1)
[2020-05-10] MEDS: DULOXETINE 20 MG CAPSULE.DR GT SCH (09:00)
[2020-05-10] MEDS: VITAMINS A AND D OINT TP SCH (09:00)
[2020-05-10] MEDS: COD LIVER OIL/ZINC OXIDE OINT 113 GM TUBE TP SCH ×2 (09:00→20:47)
[2020-05-10] MEDS: TOBRAMYCIN/DEXAMETH OPHT DROP 2.5 ML BOTTLE EACHEYE SCH ×4 (09:00→20:47)
[2020-05-10] MEDS: HYDROGEN PEROXIDE 3% 118 ML BOTTLE TP SCH ×2 (09:00→21:48)
[2020-05-10] MEDS: NYSTATIN CREAM 30 GM TUBE TP SCH (09:00)
[2020-05-10] MEDS: TRIAMCINOLONE ACET 0.1% CREAM 15 GM TUBE TP SCH (09:00)
[2020-05-10] MEDS: FINASTERIDE 5 MG TABLET GT SCH (09:00)
[2020-05-10] MEDS: MULTIVIT, IRON, MIN NO. 8, FA TABLET GT SCH (20:47)
[2020-05-10] MEDS: ACETAMINOPHEN 650 MG/20 ML UDC- SA PATIENTS-PAIN ONLY GT PRN (20:48)
[2020-05-10 20:58] VITALS: BP 151/90
[2020-05-10] MEDS: OLANZAPINE 2.5 MG TABLET GT PRN (23:00)
[2020-05-11] MEDS: JEVITY 1.2 1000 ML LIQUID GT PRN ×2 (01:33→23:00)
[2020-05-11] MEDS: PANTOPRAZOLE ORAL SUSPENSION 40 MG SUSPDR.PKT GT SCH (06:45)
[2020-05-11 07:30] VITALS: BP 109/63
[2020-05-11] MEDS: HYDROGEN PEROXIDE 3% 118 ML BOTTLE TP SCH ×2 (09:33→21:53)
[2020-05-11] MEDS: COD LIVER OIL/ZINC OXIDE OINT 113 GM TUBE TP SCH ×2 (09:48→20:44)
[2020-05-11] MEDS: VITAMINS A AND D OINT TP SCH (09:48)
[2020-05-11] MEDS: FINASTERIDE 5 MG TABLET GT SCH (09:48)
[2020-05-11] MEDS: TOBRAMYCIN/DEXAMETH OPHT DROP 2.5 ML BOTTLE EACHEYE SCH ×4 (09:48→20:44)
[2020-05-11] MEDS: DULOXETINE 20 MG CAPSULE.DR GT SCH (09:48)
--- NOTE | 2020-05-11 14:09 | NUR ---
INTERDISCIPLINARY PLAN OF CARE CONFERENCE was held today. Patient's was not available to participate in the meeting. Dr. Trujillo and the Interdisciplinary Team reviewed the current plan of care in detail. RN reported on patient's medical condition and current treatment. See RN IDT conference notes. See also all other disciplines IDT notes and physician's progress notes for additional details.
[2020-05-11 20:14] VITALS: BP 129/57
[2020-05-11] MEDS: MULTIVIT, IRON, MIN NO. 8, FA TABLET GT SCH (20:44)
[2020-05-12] MEDS: OLANZAPINE 2.5 MG TABLET GT PRN ×2 (02:07→11:10)
[2020-05-12] MEDS: PANTOPRAZOLE ORAL SUSPENSION 40 MG SUSPDR.PKT GT SCH (05:54)
[2020-05-12] MEDS: TOBRAMYCIN/DEXAMETH OPHT DROP 2.5 ML BOTTLE EACHEYE SCH ×4 (08:08→21:11)
[2020-05-12] MEDS: FINASTERIDE 5 MG TABLET GT SCH (08:08)
[2020-05-12] MEDS: DULOXETINE 20 MG CAPSULE.DR GT SCH (08:08)
[2020-05-12] MEDS: COD LIVER OIL/ZINC OXIDE OINT 113 GM TUBE TP SCH ×2 (08:09→21:11)
[2020-05-12] MEDS: VITAMINS A AND D OINT TP SCH (08:09)
[2020-05-12] MEDS: HYDROGEN PEROXIDE 3% 118 ML BOTTLE TP SCH ×2 (09:00→21:49)
[2020-05-12 11:57] VITALS: BP 123/80
[2020-05-12] MEDS: JEVITY 1.2 1000 ML LIQUID GT PRN (14:56)
[2020-05-12 20:09] VITALS: BP 134/75
[2020-05-12] MEDS: MULTIVIT, IRON, MIN NO. 8, FA TABLET GT SCH (21:11)
[2020-05-13] MEDS: PANTOPRAZOLE ORAL SUSPENSION 40 MG SUSPDR.PKT GT SCH (06:05)
[2020-05-13 07:20] VITALS: BP 132/87
[2020-05-13] MEDS: TOBRAMYCIN/DEXAMETH OPHT DROP 2.5 ML BOTTLE EACHEYE SCH ×4 (08:41→20:57)
[2020-05-13] MEDS: DULOXETINE 20 MG CAPSULE.DR GT SCH (08:42)
[2020-05-13] MEDS: VITAMINS A AND D OINT TP SCH (08:42)
[2020-05-13] MEDS: COD LIVER OIL/ZINC OXIDE OINT 113 GM TUBE TP SCH ×2 (08:42→20:59)
[2020-05-13] MEDS: FINASTERIDE 5 MG TABLET GT SCH (08:42)
[2020-05-13] MEDS: HYDROGEN PEROXIDE 3% 118 ML BOTTLE TP SCH ×2 (09:00→21:23)
[2020-05-13] MEDS: JEVITY 1.2 1000 ML LIQUID GT PRN (11:45)
[2020-05-13 20:00] VITALS: BP 124/62
[2020-05-13] MEDS: MULTIVIT, IRON, MIN NO. 8, FA TABLET GT SCH (20:58)
--- NOTE | 2020-05-13 22:15 | NUR ---
g-tube pulled out, kub with gartrografin to confirm g-tube placement ordered.
[2020-05-14] MEDS: PANTOPRAZOLE ORAL SUSPENSION 40 MG SUSPDR.PKT GT SCH (05:10)
[2020-05-14 07:42] VITALS: BP 119/73
[2020-05-14] MEDS: TOBRAMYCIN/DEXAMETH OPHT DROP 2.5 ML BOTTLE EACHEYE SCH ×3 (08:29→17:21)
[2020-05-14] MEDS: VITAMINS A AND D OINT TP SCH (08:34)
[2020-05-14] MEDS: DULOXETINE 20 MG CAPSULE.DR GT SCH (08:34)
[2020-05-14] MEDS: COD LIVER OIL/ZINC OXIDE OINT 113 GM TUBE TP SCH ×2 (08:34→21:00)
[2020-05-14] MEDS: FINASTERIDE 5 MG TABLET GT SCH (08:34)
[2020-05-14] MEDS: HYDROGEN PEROXIDE 3% 118 ML BOTTLE TP SCH ×2 (09:00→21:09)
[2020-05-14] MEDS: JEVITY 1.2 1000 ML LIQUID GT PRN ×2 (11:21→11:24)
[2020-05-14 20:03] VITALS: BP 140/70
[2020-05-14] MEDS: MULTIVIT, IRON, MIN NO. 8, FA TABLET GT SCH (21:00)
[2020-05-15] MEDS: PANTOPRAZOLE ORAL SUSPENSION 40 MG SUSPDR.PKT GT SCH (06:10)
[2020-05-15 07:52] VITALS: BP 114/69
[2020-05-15] MEDS: VITAMINS A AND D OINT TP SCH (08:09)
[2020-05-15] MEDS: COD LIVER OIL/ZINC OXIDE OINT 113 GM TUBE TP SCH ×2 (08:09→21:20)
[2020-05-15] MEDS: FINASTERIDE 5 MG TABLET GT SCH (08:09)
[2020-05-15] MEDS: DULOXETINE 20 MG CAPSULE.DR GT SCH (08:09)
[2020-05-15] MEDS: HYDROGEN PEROXIDE 3% 118 ML BOTTLE TP SCH ×2 (09:13→21:07)
[2020-05-15 20:00] VITALS: BP 124/77
[2020-05-15] MEDS: MULTIVIT, IRON, MIN NO. 8, FA TABLET GT SCH (21:20)
[2020-05-16] MEDS: PANTOPRAZOLE ORAL SUSPENSION 40 MG SUSPDR.PKT GT SCH (05:21)
[2020-05-16] MEDS: JEVITY 1.2 1000 ML LIQUID GT PRN (07:07)
[2020-05-16 07:42] VITALS: BP 142/82
[2020-05-16] MEDS: VITAMINS A AND D OINT TP SCH (08:27)
[2020-05-16] MEDS: FINASTERIDE 5 MG TABLET GT SCH (08:27)
[2020-05-16] MEDS: DULOXETINE 20 MG CAPSULE.DR GT SCH (08:27)
[2020-05-16] MEDS: COD LIVER OIL/ZINC OXIDE OINT 113 GM TUBE TP SCH ×2 (08:27→21:25)
[2020-05-16] MEDS: HYDROGEN PEROXIDE 3% 118 ML BOTTLE TP SCH ×2 (09:35→21:06)
[2020-05-16 20:11] VITALS: BP 133/77
[2020-05-16] MEDS: MULTIVIT, IRON, MIN NO. 8, FA TABLET GT SCH (21:25)
[2020-05-17] MEDS: PANTOPRAZOLE ORAL SUSPENSION 40 MG SUSPDR.PKT GT SCH (06:03)
[2020-05-17 07:39] VITALS: BP 105/56
[2020-05-17] MEDS: HYDROGEN PEROXIDE 3% 118 ML BOTTLE TP SCH ×2 (08:07→21:17)
[2020-05-17] MEDS: FINASTERIDE 5 MG TABLET GT SCH (08:34)
[2020-05-17] MEDS: DULOXETINE 20 MG CAPSULE.DR GT SCH (08:34)
[2020-05-17] MEDS: VITAMINS A AND D OINT TP SCH (08:34)
[2020-05-17] MEDS: COD LIVER OIL/ZINC OXIDE OINT 113 GM TUBE TP SCH ×2 (08:34→21:50)
[2020-05-17 20:30] VITALS: BP 124/63
[2020-05-17] MEDS: MULTIVIT, IRON, MIN NO. 8, FA TABLET GT SCH (21:50)
[2020-05-18] MEDS: JEVITY 1.2 1000 ML LIQUID GT PRN (01:53)
[2020-05-18] MEDS: ONDANSETRON HCL 4 MG TABLET GT PRN (04:59)
[2020-05-18] MEDS: PANTOPRAZOLE ORAL SUSPENSION 40 MG SUSPDR.PKT GT SCH (05:05)
[2020-05-18 07:23] LABS: BASOPHILS % (AUTO) 0.3 % (0.0-2.0); EOSINOPHILS # (AUTO) 0.2 K/uL (0.0-0.7); EOSINOPHILS % (AUTO) 2.6 % (0.0-7.0); HEMATOCRIT 40.5 % (36.7-47.1); HEMOGLOBIN 13.3 g/dL (12.5-16.3); LYMPHOCYTES # (AUTO) 1.4 K/uL (20.0-40.0); LYMPHOCYTES % (AUTO) 21.8 % (20.5-51.5); MEAN CORPUSCULAR HEMOGLOBIN 29.4 uug (23.8-33.4); MEAN CORPUSCULAR HGB CONC 33 g/dL (32.5-36.3); MEAN CORPUSCULAR VOLUME 89.6 fL (73.0-96.2); MONOCYTES # (AUTO) 0.4 K/uL (2.0-10.0); MONOCYTES % (AUTO) 6.7 % (0.0-11.0); NEUTROPHILS # (AUTO) 4.5 K/uL (1.8-8.9); NEUTROPHILS % (AUTO) 68.6 % (38.5-71.5); PLATELET COUNT (AUTO) 176 K/uL (152-348); RED BLOOD CELL COUNT(AUTO) 4.52 MIL/uL (4.06-5.63); WHITE BLOOD COUNT (AUTO) 6.6 K/uL (3.6-10.2)
[2020-05-18 07:28] VITALS: BP 105/70
[2020-05-18 07:45] LABS: CREATININE 0.9 mg/dL (0.6-1.3); PHOSPHOROUS 3.8 mg/dL (2.5-4.9); POTASSIUM 4.4 mmol/L (3.5-5.1)
[2020-05-18] MEDS: DULOXETINE 20 MG CAPSULE.DR GT SCH (08:59)
[2020-05-18] MEDS: HYDROGEN PEROXIDE 3% 118 ML BOTTLE TP SCH ×2 (09:00→21:14)
[2020-05-18] MEDS: FINASTERIDE 5 MG TABLET GT SCH (09:00)
[2020-05-18] MEDS: COD LIVER OIL/ZINC OXIDE OINT 113 GM TUBE TP SCH ×2 (09:00→20:40)
[2020-05-18] MEDS: VITAMINS A AND D OINT TP SCH (09:00)
[2020-05-18 20:00] VITALS: BP 128/68
[2020-05-18] MEDS: MULTIVIT, IRON, MIN NO. 8, FA TABLET GT SCH (20:40)
[2020-05-19] MEDS: JEVITY 1.2 1000 ML LIQUID GT PRN (01:21)
[2020-05-19] MEDS: OLANZAPINE 2.5 MG TABLET GT PRN ×2 (03:05→18:10)
[2020-05-19] MEDS: PANTOPRAZOLE ORAL SUSPENSION 40 MG SUSPDR.PKT GT SCH (05:52)
[2020-05-19 07:45] VITALS: BP 117/63
[2020-05-19] MEDS: HYDROGEN PEROXIDE 3% 118 ML BOTTLE TP SCH ×2 (08:16→21:00)
[2020-05-19] MEDS: DULOXETINE 20 MG CAPSULE.DR GT SCH (08:36)
[2020-05-19] MEDS: FINASTERIDE 5 MG TABLET GT SCH (08:37)
[2020-05-19] MEDS: VITAMINS A AND D OINT TP SCH (08:37)
[2020-05-19] MEDS: COD LIVER OIL/ZINC OXIDE OINT 113 GM TUBE TP SCH ×2 (08:37→21:23)
[2020-05-19 20:00] VITALS: BP 135/65
[2020-05-19] MEDS: MULTIVIT, IRON, MIN NO. 8, FA TABLET GT SCH (21:23)
[2020-05-20] MEDS: JEVITY 1.2 1000 ML LIQUID GT PRN (00:40)
[2020-05-20] MEDS: ACETAMINOPHEN 650 MG/20 ML UDC- SA PATIENTS-PAIN ONLY GT PRN (01:00)
[2020-05-20] MEDS: PANTOPRAZOLE ORAL SUSPENSION 40 MG SUSPDR.PKT GT SCH (06:19)
[2020-05-20 07:42] VITALS: BP 122/67
[2020-05-20] MEDS: DULOXETINE 20 MG CAPSULE.DR GT SCH (08:10)
[2020-05-20] MEDS: COD LIVER OIL/ZINC OXIDE OINT 113 GM TUBE TP SCH ×2 (08:10→21:00)
[2020-05-20] MEDS: FINASTERIDE 5 MG TABLET GT SCH (08:10)
[2020-05-20] MEDS: VITAMINS A AND D OINT TP SCH (08:10)
[2020-05-20] MEDS: HYDROGEN PEROXIDE 3% 118 ML BOTTLE TP SCH ×2 (09:29→21:38)
[2020-05-20 20:00] VITALS: BP 138/72
[2020-05-20] MEDS: MULTIVIT, IRON, MIN NO. 8, FA TABLET GT SCH (21:00)
--- NOTE | 2020-05-20 21:50 | NUR ---
NOTIFIED [employer], CLARICE, OF COVID-19 POSSIBLE EXPOSURE AND TESTING PLAN. [employer] VERBALIZED UNDERSTANDING.
--- NOTE | 2020-05-21 02:00 | NUR ---
New order for COVID-19 test per [facility] COVID-19 requirement.
[2020-05-21] MEDS: JEVITY 1.2 1000 ML LIQUID GT PRN ×2 (03:07→17:06)
[2020-05-21] MEDS: PANTOPRAZOLE ORAL SUSPENSION 40 MG SUSPDR.PKT GT SCH (06:25)
[2020-05-21 08:29] VITALS: BP 156/81
[2020-05-21] MEDS: VITAMINS A AND D OINT TP SCH (08:39)
[2020-05-21] MEDS: DULOXETINE 20 MG CAPSULE.DR GT SCH (08:39)
[2020-05-21] MEDS: COD LIVER OIL/ZINC OXIDE OINT 113 GM TUBE TP SCH ×2 (08:39→21:00)
[2020-05-21] MEDS: FINASTERIDE 5 MG TABLET GT SCH (08:39)
[2020-05-21] MEDS: HYDROGEN PEROXIDE 3% 118 ML BOTTLE TP SCH ×2 (09:00→21:20)
[2020-05-21] MEDS: MULTIVIT, IRON, MIN NO. 8, FA TABLET GT SCH (21:00)
[2020-05-21 22:28] VITALS: BP 151/89
[2020-05-21] MEDS: OLANZAPINE 2.5 MG TABLET GT PRN (22:52)
[2020-05-22] MEDS: JEVITY 1.2 1000 ML LIQUID GT PRN ×2 (04:56→20:02)
[2020-05-22] MEDS: PANTOPRAZOLE ORAL SUSPENSION 40 MG SUSPDR.PKT GT SCH (05:06)
[2020-05-22 07:37] VITALS: BP 158/88
[2020-05-22] MEDS: FINASTERIDE 5 MG TABLET GT SCH (08:53)
[2020-05-22] MEDS: VITAMINS A AND D OINT TP SCH (08:53)
[2020-05-22] MEDS: HYDROGEN PEROXIDE 3% 118 ML BOTTLE TP SCH ×2 (08:53→21:28)
[2020-05-22] MEDS: COD LIVER OIL/ZINC OXIDE OINT 113 GM TUBE TP SCH ×2 (08:53→20:00)
[2020-05-22] MEDS: DULOXETINE 20 MG CAPSULE.DR GT SCH (08:53)
--- NOTE | 2020-05-22 18:58 | NUR ---
Laboratory call with results,Covid 19 negative.
[2020-05-22] MEDS: MULTIVIT, IRON, MIN NO. 8, FA TABLET GT SCH (20:00)
[2020-05-22] MEDS: OLANZAPINE 2.5 MG TABLET GT PRN (20:04)
[2020-05-22] MEDS: POLYVINYL ALCOHOL OPHT DROPS 15 ML BOTTLE EACHEYE PRN (20:04)
[2020-05-22 23:10] VITALS: BP 139/84
[2020-05-23] MEDS: ACETAMINOPHEN 650 MG/20 ML UDC- SA PATIENTS-PAIN ONLY GT PRN (02:00)
[2020-05-23] MEDS: OLANZAPINE 2.5 MG TABLET GT PRN (04:05)
[2020-05-23] MEDS: PANTOPRAZOLE ORAL SUSPENSION 40 MG SUSPDR.PKT GT SCH (05:38)
[2020-05-23 07:44] VITALS: BP 148/76
[2020-05-23] MEDS: VITAMINS A AND D OINT TP SCH (08:22)
[2020-05-23] MEDS: COD LIVER OIL/ZINC OXIDE OINT 113 GM TUBE TP SCH ×2 (08:22→21:29)
[2020-05-23] MEDS: DULOXETINE 20 MG CAPSULE.DR GT SCH (08:22)
[2020-05-23] MEDS: FINASTERIDE 5 MG TABLET GT SCH (08:22)
[2020-05-23] MEDS: HYDROGEN PEROXIDE 3% 118 ML BOTTLE TP SCH ×2 (09:11→21:21)
[2020-05-23] MEDS: JEVITY 1.2 1000 ML LIQUID GT PRN (11:48)
--- NOTE | 2020-05-23 19:14 | NUR ---
Spoke to Bobby Pt's ,aware pt COVID 19 results are negative.
[2020-05-23] MEDS: MULTIVIT, IRON, MIN NO. 8, FA TABLET GT SCH (21:29)
[2020-05-23 23:28] VITALS: BP 138/74
[2020-05-24] MEDS: JEVITY 1.2 1000 ML LIQUID GT PRN (01:59)
[2020-05-24] MEDS: OLANZAPINE 2.5 MG TABLET GT PRN (03:14)
[2020-05-24] MEDS: ACETAMINOPHEN 650 MG/20 ML UDC- SA PATIENTS-PAIN ONLY GT PRN (03:15)
[2020-05-24] MEDS: PANTOPRAZOLE ORAL SUSPENSION 40 MG SUSPDR.PKT GT SCH (06:30)
[2020-05-24] MEDS: HYDROGEN PEROXIDE 3% 118 ML BOTTLE TP SCH ×2 (07:09→21:00)
[2020-05-24 07:47] VITALS: BP 130/47
[2020-05-24 07:57] VITALS: BP 130/47
[2020-05-24] MEDS: DULOXETINE 20 MG CAPSULE.DR GT SCH (08:23)
[2020-05-24] MEDS: FINASTERIDE 5 MG TABLET GT SCH (08:24)
[2020-05-24] MEDS: COD LIVER OIL/ZINC OXIDE OINT 113 GM TUBE TP SCH ×2 (08:24→21:08)
[2020-05-24] MEDS: VITAMINS A AND D OINT TP SCH (08:24)
[2020-05-24 20:10] VITALS: BP 132/68
[2020-05-24] MEDS: MULTIVIT, IRON, MIN NO. 8, FA TABLET GT SCH (21:08)
[2020-05-25] MEDS: PANTOPRAZOLE ORAL SUSPENSION 40 MG SUSPDR.PKT GT SCH (05:32)
[2020-05-25] MEDS: OLANZAPINE 2.5 MG TABLET GT PRN ×2 (05:33→12:33)
[2020-05-25 07:34] VITALS: BP 128/62
[2020-05-25] MEDS: FINASTERIDE 5 MG TABLET GT SCH (08:55)
[2020-05-25] MEDS: VITAMINS A AND D OINT TP SCH (08:55)
[2020-05-25] MEDS: COD LIVER OIL/ZINC OXIDE OINT 113 GM TUBE TP SCH ×2 (08:55→20:26)
[2020-05-25] MEDS: DULOXETINE 20 MG CAPSULE.DR GT SCH (08:55)
[2020-05-25] MEDS: HYDROGEN PEROXIDE 3% 118 ML BOTTLE TP SCH ×2 (09:47→21:06)
[2020-05-25] MEDS: JEVITY 1.2 1000 ML LIQUID GT PRN (12:32)
[2020-05-25] MEDS: ONDANSETRON HCL 4 MG TABLET GT PRN (12:33)
[2020-05-25 20:03] VITALS: BP 122/69
[2020-05-25] MEDS: MULTIVIT, IRON, MIN NO. 8, FA TABLET GT SCH (20:26)
[2020-05-26] MEDS: JEVITY 1.2 1000 ML LIQUID GT PRN (01:39)
[2020-05-26] MEDS: PANTOPRAZOLE ORAL SUSPENSION 40 MG SUSPDR.PKT GT SCH (05:48)
[2020-05-26 07:36] VITALS: BP 117/62
[2020-05-26] MEDS: VITAMINS A AND D OINT TP SCH (08:14)
[2020-05-26] MEDS: DULOXETINE 20 MG CAPSULE.DR GT SCH (08:14)
[2020-05-26] MEDS: FINASTERIDE 5 MG TABLET GT SCH (08:14)
[2020-05-26] MEDS: COD LIVER OIL/ZINC OXIDE OINT 113 GM TUBE TP SCH ×2 (08:14→21:00)
[2020-05-26] MEDS: HYDROGEN PEROXIDE 3% 118 ML BOTTLE TP SCH ×2 (08:34→21:04)
[2020-05-26] MEDS: ACETAMINOPHEN 650 MG/20 ML UDC- SA PATIENTS-PAIN ONLY GT PRN (13:31)
--- NOTE | 2020-05-26 16:47 | NUR ---
New order for COVID-19 test per [facility] COVID-19 requirement.
--- NOTE | 2020-05-26 19:16 | NUR ---
Inform Bobby Pt's COVID-19 there will be a 2nd round of testing ,Good verbal understanding.
[2020-05-26 20:26] VITALS: BP 135/62
[2020-05-26] MEDS: MULTIVIT, IRON, MIN NO. 8, FA TABLET GT SCH (21:00)
[2020-05-27] MEDS: JEVITY 1.2 1000 ML LIQUID GT PRN ×2 (01:04→20:37)
[2020-05-27] MEDS: PANTOPRAZOLE ORAL SUSPENSION 40 MG SUSPDR.PKT GT SCH (05:56)
[2020-05-27] MEDS: HYDROGEN PEROXIDE 3% 118 ML BOTTLE TP SCH ×2 (07:37→19:08)
[2020-05-27 07:53] VITALS: BP 128/79
[2020-05-27] MEDS: VITAMINS A AND D OINT TP SCH (09:27)
[2020-05-27] MEDS: COD LIVER OIL/ZINC OXIDE OINT 113 GM TUBE TP SCH ×2 (09:27→20:32)
[2020-05-27] MEDS: DULOXETINE 20 MG CAPSULE.DR GT SCH (09:27)
[2020-05-27] MEDS: FINASTERIDE 5 MG TABLET GT SCH (09:27)
--- NOTE | 2020-05-27 19:06 | NUR ---
PT'S AWARE OF COVID19 TESTING AND IN AGREEMENT.
[2020-05-27 19:54] VITALS: BP 136/66
[2020-05-27] MEDS: OLANZAPINE 2.5 MG TABLET GT PRN (20:32)
[2020-05-27] MEDS: MULTIVIT, IRON, MIN NO. 8, FA TABLET GT SCH (20:32)
[2020-05-28] MEDS: PANTOPRAZOLE ORAL SUSPENSION 40 MG SUSPDR.PKT GT SCH (06:12)
[2020-05-28 08:00] VITALS: BP 131/73
[2020-05-28] MEDS: DULOXETINE 20 MG CAPSULE.DR GT SCH (08:41)
[2020-05-28] MEDS: COD LIVER OIL/ZINC OXIDE OINT 113 GM TUBE TP SCH ×2 (08:42→20:31)
[2020-05-28] MEDS: VITAMINS A AND D OINT TP SCH (08:42)
[2020-05-28] MEDS: FINASTERIDE 5 MG TABLET GT SCH (08:42)
[2020-05-28] MEDS: HYDROGEN PEROXIDE 3% 118 ML BOTTLE TP SCH ×2 (09:20→21:57)
[2020-05-28] MEDS: JEVITY 1.2 1000 ML LIQUID GT PRN (11:49)
[2020-05-28] MEDS: ACETAMINOPHEN 650 MG/20 ML UDC- SA PATIENTS-PAIN ONLY GT PRN (18:07)
[2020-05-28] MEDS: MULTIVIT, IRON, MIN NO. 8, FA TABLET GT SCH (20:31)
[2020-05-28 20:55] VITALS: BP 118/67
[2020-05-29] MEDS: JEVITY 1.2 1000 ML LIQUID GT PRN ×2 (00:25→17:24)
[2020-05-29] MEDS: PANTOPRAZOLE ORAL SUSPENSION 40 MG SUSPDR.PKT GT SCH (05:45)
[2020-05-29 07:37] VITALS: BP 117/80
[2020-05-29] MEDS: HYDROGEN PEROXIDE 3% 118 ML BOTTLE TP SCH ×2 (08:58→21:23)
[2020-05-29] MEDS: DULOXETINE 20 MG CAPSULE.DR GT SCH (09:07)
[2020-05-29] MEDS: FINASTERIDE 5 MG TABLET GT SCH (09:07)
[2020-05-29] MEDS: COD LIVER OIL/ZINC OXIDE OINT 113 GM TUBE TP SCH ×2 (09:08→20:30)
[2020-05-29] MEDS: VITAMINS A AND D OINT TP SCH (09:08)
[2020-05-29] MEDS: OLANZAPINE 2.5 MG TABLET GT PRN ×2 (09:47→20:30)
[2020-05-29] MEDS: ONDANSETRON HCL 4 MG TABLET GT PRN ×2 (10:00→20:30)
[2020-05-29] MEDS: ACETAMINOPHEN 650 MG/20 ML UDC- SA PATIENTS-PAIN ONLY GT PRN (17:33)
[2020-05-29 20:14] VITALS: BP 121/65
[2020-05-29] MEDS: MULTIVIT, IRON, MIN NO. 8, FA TABLET GT SCH (20:30)
[2020-05-30] MEDS: PANTOPRAZOLE ORAL SUSPENSION 40 MG SUSPDR.PKT GT SCH (05:54)
[2020-05-30 07:32] VITALS: BP 113/57
[2020-05-30] MEDS: COD LIVER OIL/ZINC OXIDE OINT 113 GM TUBE TP SCH ×2 (08:28→20:32)
[2020-05-30] MEDS: FINASTERIDE 5 MG TABLET GT SCH (08:28)
[2020-05-30] MEDS: VITAMINS A AND D OINT TP SCH (08:28)
[2020-05-30] MEDS: DULOXETINE 20 MG CAPSULE.DR GT SCH (08:28)
[2020-05-30] MEDS: HYDROGEN PEROXIDE 3% 118 ML BOTTLE TP SCH ×2 (09:00→21:00)
[2020-05-30] MEDS: JEVITY 1.2 1000 ML LIQUID GT PRN ×2 (10:45→21:52)
[2020-05-30] MEDS: OLANZAPINE 2.5 MG TABLET GT PRN (11:38)
--- NOTE | 2020-05-30 14:50 | NUR ---
PT'S AWARE THAT PT. IS NEGATIVE FOR COVID 19 TEST.
[2020-05-30] MEDS: MULTIVIT, IRON, MIN NO. 8, FA TABLET GT SCH (20:32)
[2020-05-30 20:46] VITALS: BP 119/56
[2020-05-31] MEDS: ONDANSETRON HCL 4 MG TABLET GT PRN ×2 (01:55→11:05)
[2020-05-31] MEDS: OLANZAPINE 2.5 MG TABLET GT PRN (01:55)
[2020-05-31] MEDS: PANTOPRAZOLE ORAL SUSPENSION 40 MG SUSPDR.PKT GT SCH (06:00)
[2020-05-31 08:01] VITALS: BP 125/62
[2020-05-31] MEDS: COD LIVER OIL/ZINC OXIDE OINT 113 GM TUBE TP SCH ×2 (08:01→20:21)
[2020-05-31] MEDS: VITAMINS A AND D OINT TP SCH (08:01)
[2020-05-31] MEDS: DULOXETINE 20 MG CAPSULE.DR GT SCH (08:01)
[2020-05-31] MEDS: FINASTERIDE 5 MG TABLET GT SCH (08:01)
[2020-05-31 08:10] VITALS: BP 125/62
[2020-05-31] MEDS: HYDROGEN PEROXIDE 3% 118 ML BOTTLE TP SCH ×2 (09:24→21:19)
[2020-05-31] MEDS: ACETAMINOPHEN 650 MG/20 ML UDC- SA PATIENTS-PAIN ONLY GT PRN (11:07)
--- NOTE | 2020-05-31 12:00 | NUR ---
SEEN BY CLAYTON Barclay AND WITH NNO.
--- NOTE | 2020-05-31 12:17 | NUR ---
PT. WAS SEEN AND EXAMINED BY CLAYTON Barclay AND AWARE OF TRACHEAL SMALL BLEEDING WHEN TRACH SUCTION IS DONE AND NNO.
[2020-05-31] MEDS: JEVITY 1.2 1000 ML LIQUID GT PRN (14:27)
--- NOTE | 2020-05-31 15:00 | NUR ---
SEEN BY DR. GUERIN AND WITH NNO.
[2020-05-31 17:10] LABS: BASOPHILS % (AUTO) 0.5 % (0.0-2.0); EOSINOPHILS # (AUTO) 0.2 K/uL (0.0-0.7); EOSINOPHILS % (AUTO) 3.4 % (0.0-7.0); HEMATOCRIT 38.8 % (36.7-47.1); HEMOGLOBIN 12.9 g/dL (12.5-16.3); LYMPHOCYTES # (AUTO) 1.5 K/uL (20.0-40.0); LYMPHOCYTES % (AUTO) 24.8 % (20.5-51.5); MEAN CORPUSCULAR HEMOGLOBIN 29.6 uug (23.8-33.4); MEAN CORPUSCULAR HGB CONC 33 g/dL (32.5-36.3); MEAN CORPUSCULAR VOLUME 88.9 fL (73.0-96.2); MONOCYTES # (AUTO) 0.4 K/uL (2.0-10.0); MONOCYTES % (AUTO) 7.3 % (0.0-11.0); NEUTROPHILS # (AUTO) 3.9 K/uL (1.8-8.9); PLATELET COUNT (AUTO) 184 K/uL (152-348); RED BLOOD CELL COUNT(AUTO) 4.36 MIL/uL (4.06-5.63); WHITE BLOOD COUNT (AUTO) 6.1 K/uL (3.6-10.2)
[2020-05-31 17:24] LABS: CREATININE 0.8 mg/dL (0.6-1.3); MAGNESIUM 2.1 mg/dL (1.8-2.4); PHOSPHOROUS 3.1 mg/dL (2.5-4.9); POTASSIUM 4.8 mmol/L (3.5-5.1)
[2020-05-31] MEDS: MULTIVIT, IRON, MIN NO. 8, FA TABLET GT SCH (20:21)
[2020-05-31 21:01] VITALS: BP 125/67
[2020-06-01] MEDS: PANTOPRAZOLE ORAL SUSPENSION 40 MG SUSPDR.PKT GT SCH (05:05)
[2020-06-01] MEDS: JEVITY 1.2 1000 ML LIQUID GT PRN ×2 (05:06→18:31)
[2020-06-01 07:57] VITALS: BP 138/72
[2020-06-01] MEDS: COD LIVER OIL/ZINC OXIDE OINT 113 GM TUBE TP SCH ×2 (08:56→20:49)
[2020-06-01] MEDS: VITAMINS A AND D OINT TP SCH (08:56)
[2020-06-01] MEDS: DULOXETINE 20 MG CAPSULE.DR GT SCH (08:56)
[2020-06-01] MEDS: FINASTERIDE 5 MG TABLET GT SCH (08:56)
[2020-06-01] MEDS: HYDROGEN PEROXIDE 3% 118 ML BOTTLE TP SCH ×2 (09:35→20:53)
[2020-06-01 20:00] VITALS: BP 135/67
[2020-06-01] MEDS: MULTIVIT, IRON, MIN NO. 8, FA TABLET GT SCH (20:49)
[2020-06-02] MEDS: ACETAMINOPHEN 650 MG/20 ML UDC- SA PATIENTS-PAIN ONLY GT PRN (04:00)
[2020-06-02] MEDS: PANTOPRAZOLE ORAL SUSPENSION 40 MG SUSPDR.PKT GT SCH (06:15)
[2020-06-02 07:51] VITALS: BP 130/80
[2020-06-02] MEDS: DULOXETINE 20 MG CAPSULE.DR GT SCH (08:50)
[2020-06-02] MEDS: COD LIVER OIL/ZINC OXIDE OINT 113 GM TUBE TP SCH ×2 (08:50→21:01)
[2020-06-02] MEDS: VITAMINS A AND D OINT TP SCH (08:50)
[2020-06-02] MEDS: FINASTERIDE 5 MG TABLET GT SCH (08:50)
[2020-06-02] MEDS: HYDROGEN PEROXIDE 3% 118 ML BOTTLE TP SCH ×2 (09:00→21:08)
[2020-06-02] MEDS: JEVITY 1.2 1000 ML LIQUID GT PRN (10:25)
[2020-06-02 20:00] VITALS: BP 116/62
[2020-06-02] MEDS: MULTIVIT, IRON, MIN NO. 8, FA TABLET GT SCH (21:01)
[2020-06-03] MEDS: PANTOPRAZOLE ORAL SUSPENSION 40 MG SUSPDR.PKT GT SCH (06:17)
[2020-06-03 07:35] VITALS: BP 127/83
[2020-06-03] MEDS: VITAMINS A AND D OINT TP SCH (08:13)
[2020-06-03] MEDS: DULOXETINE 20 MG CAPSULE.DR GT SCH (08:13)
[2020-06-03] MEDS: FINASTERIDE 5 MG TABLET GT SCH (08:13)
[2020-06-03] MEDS: COD LIVER OIL/ZINC OXIDE OINT 113 GM TUBE TP SCH ×2 (08:13→20:50)
[2020-06-03] MEDS: HYDROGEN PEROXIDE 3% 118 ML BOTTLE TP SCH ×2 (09:10→21:26)
[2020-06-03] MEDS: JEVITY 1.2 1000 ML LIQUID GT PRN ×2 (18:08)
[2020-06-03 20:00] VITALS: BP 124/64
[2020-06-03] MEDS: MULTIVIT, IRON, MIN NO. 8, FA TABLET GT SCH (20:49)
[2020-06-03] MEDS: OLANZAPINE 2.5 MG TABLET GT PRN (20:52)
[2020-06-04] MEDS: PANTOPRAZOLE ORAL SUSPENSION 40 MG SUSPDR.PKT GT SCH (06:16)
[2020-06-04 07:45] VITALS: BP 128/66
[2020-06-04] MEDS: DULOXETINE 20 MG CAPSULE.DR GT SCH (08:37)
[2020-06-04] MEDS: FINASTERIDE 5 MG TABLET GT SCH (08:37)
[2020-06-04] MEDS: VITAMINS A AND D OINT TP SCH (08:38)
[2020-06-04] MEDS: COD LIVER OIL/ZINC OXIDE OINT 113 GM TUBE TP SCH ×2 (08:38→21:09)
[2020-06-04] MEDS: HYDROGEN PEROXIDE 3% 118 ML BOTTLE TP SCH ×2 (09:10→21:20)
[2020-06-04] MEDS: JEVITY 1.2 1000 ML LIQUID GT PRN (10:29)
[2020-06-04 20:00] VITALS: BP 149/86
[2020-06-04] MEDS: MULTIVIT, IRON, MIN NO. 8, FA TABLET GT SCH (21:09)
[2020-06-05] MEDS: JEVITY 1.2 1000 ML LIQUID GT PRN ×2 (00:44→16:00)
[2020-06-05] MEDS: PANTOPRAZOLE ORAL SUSPENSION 40 MG SUSPDR.PKT GT SCH (05:57)
[2020-06-05 08:00] VITALS: BP 117/59
[2020-06-05] MEDS: DULOXETINE 20 MG CAPSULE.DR GT SCH (09:04)
[2020-06-05] MEDS: FINASTERIDE 5 MG TABLET GT SCH (09:05)
[2020-06-05] MEDS: VITAMINS A AND D OINT TP SCH (09:05)
[2020-06-05] MEDS: COD LIVER OIL/ZINC OXIDE OINT 113 GM TUBE TP SCH ×2 (09:05→21:02)
[2020-06-05] MEDS: HYDROGEN PEROXIDE 3% 118 ML BOTTLE TP SCH ×2 (09:32→21:20)
[2020-06-05 20:00] VITALS: BP 149/81
[2020-06-05] MEDS: MULTIVIT, IRON, MIN NO. 8, FA TABLET GT SCH (21:02)
[2020-06-06] MEDS: PANTOPRAZOLE ORAL SUSPENSION 40 MG SUSPDR.PKT GT SCH (06:12)
[2020-06-06 07:47] VITALS: BP 103/73
[2020-06-06] MEDS: DULOXETINE 20 MG CAPSULE.DR GT SCH (08:47)
[2020-06-06] MEDS: FINASTERIDE 5 MG TABLET GT SCH (08:47)
[2020-06-06] MEDS: COD LIVER OIL/ZINC OXIDE OINT 113 GM TUBE TP SCH ×2 (08:48→20:46)
[2020-06-06] MEDS: VITAMINS A AND D OINT TP SCH (08:48)
[2020-06-06] MEDS: HYDROGEN PEROXIDE 3% 118 ML BOTTLE TP SCH ×2 (08:48→21:47)
[2020-06-06] MEDS: MULTIVIT, IRON, MIN NO. 8, FA TABLET GT SCH (20:46)
[2020-06-06 21:39] VITALS: BP 110/79
[2020-06-07] MEDS: PANTOPRAZOLE ORAL SUSPENSION 40 MG SUSPDR.PKT GT SCH (05:32)
[2020-06-07] MEDS: JEVITY 1.2 1000 ML LIQUID GT PRN (07:13)
[2020-06-07 07:37] VITALS: BP 119/68
[2020-06-07] MEDS: VITAMINS A AND D OINT TP SCH (08:29)
[2020-06-07] MEDS: COD LIVER OIL/ZINC OXIDE OINT 113 GM TUBE TP SCH ×2 (08:29→21:20)
[2020-06-07] MEDS: ACETAMINOPHEN 650 MG/20 ML UDC- SA PATIENTS-PAIN ONLY GT PRN ×2 (08:30→14:13)
[2020-06-07] MEDS: DULOXETINE 20 MG CAPSULE.DR GT SCH (08:34)
[2020-06-07] MEDS: ONDANSETRON HCL 4 MG TABLET GT PRN (08:34)
[2020-06-07] MEDS: FINASTERIDE 5 MG TABLET GT SCH (08:35)
[2020-06-07] MEDS: HYDROGEN PEROXIDE 3% 118 ML BOTTLE TP SCH ×2 (09:16→21:20)
[2020-06-07 20:09] VITALS: BP 118/69
[2020-06-07] MEDS: MULTIVIT, IRON, MIN NO. 8, FA TABLET GT SCH (21:20)
[2020-06-08] MEDS: PANTOPRAZOLE ORAL SUSPENSION 40 MG SUSPDR.PKT GT SCH (05:12)
[2020-06-08 07:27] VITALS: BP 129/77
[2020-06-08] MEDS: VITAMINS A AND D OINT TP SCH (08:56)
[2020-06-08] MEDS: FINASTERIDE 5 MG TABLET GT SCH (08:56)
[2020-06-08] MEDS: COD LIVER OIL/ZINC OXIDE OINT 113 GM TUBE TP SCH ×2 (08:56→20:58)
[2020-06-08] MEDS: DULOXETINE 20 MG CAPSULE.DR GT SCH (08:56)
[2020-06-08] MEDS: HYDROGEN PEROXIDE 3% 118 ML BOTTLE TP SCH ×2 (09:00→20:58)
[2020-06-08 20:34] VITALS: BP 130/72
[2020-06-08] MEDS: MULTIVIT, IRON, MIN NO. 8, FA TABLET GT SCH (20:58)
[2020-06-09] MEDS: PANTOPRAZOLE ORAL SUSPENSION 40 MG SUSPDR.PKT GT SCH (05:46)
[2020-06-09] MEDS: ACETAMINOPHEN 650 MG/20 ML UDC- SA PATIENTS-PAIN ONLY GT PRN ×2 (05:49→21:29)
[2020-06-09] MEDS: HYDROGEN PEROXIDE 3% 118 ML BOTTLE TP SCH ×2 (07:17→21:20)
[2020-06-09 07:53] VITALS: BP 137/73
[2020-06-09] MEDS: COD LIVER OIL/ZINC OXIDE OINT 113 GM TUBE TP SCH ×2 (08:47→21:28)
[2020-06-09] MEDS: DULOXETINE 20 MG CAPSULE.DR GT SCH (08:47)
[2020-06-09] MEDS: VITAMINS A AND D OINT TP SCH (08:47)
[2020-06-09] MEDS: FINASTERIDE 5 MG TABLET GT SCH (08:47)
[2020-06-09 20:24] VITALS: BP 159/78
[2020-06-09] MEDS: MULTIVIT, IRON, MIN NO. 8, FA TABLET GT SCH (21:28)
[2020-06-10] MEDS: JEVITY 1.2 1000 ML LIQUID GT PRN ×2 (05:00→18:16)
[2020-06-10] MEDS: PANTOPRAZOLE ORAL SUSPENSION 40 MG SUSPDR.PKT GT SCH (06:02)
[2020-06-10 07:54] VITALS: BP 132/73
[2020-06-10] MEDS: FINASTERIDE 5 MG TABLET GT SCH (09:06)
[2020-06-10] MEDS: VITAMINS A AND D OINT TP SCH (09:06)
[2020-06-10] MEDS: COD LIVER OIL/ZINC OXIDE OINT 113 GM TUBE TP SCH ×2 (09:06→20:50)
[2020-06-10] MEDS: DULOXETINE 20 MG CAPSULE.DR GT SCH (09:06)
[2020-06-10] MEDS: HYDROGEN PEROXIDE 3% 118 ML BOTTLE TP SCH ×2 (09:10→21:51)
[2020-06-10] MEDS: ACETAMINOPHEN 650 MG/20 ML UDC- SA PATIENTS-PAIN ONLY GT PRN (12:29)
--- NOTE | 2020-06-10 16:00 | NUR ---
SEEN BY DR. GUERIN WITH NEW ORDERS CARRIED OUT.
[2020-06-10] MEDS: MULTIVIT, IRON, MIN NO. 8, FA TABLET GT SCH (20:50)
[2020-06-10] MEDS: OLANZAPINE 2.5 MG TABLET GT PRN (20:51)
[2020-06-10] MEDS: POLYVINYL ALCOHOL OPHT DROPS 15 ML BOTTLE EACHEYE PRN (20:51)
[2020-06-10 23:21] VITALS: BP 137/76
[2020-06-11] MEDS: PANTOPRAZOLE ORAL SUSPENSION 40 MG SUSPDR.PKT GT SCH (06:13)
[2020-06-11 07:09] LABS: BASOPHILS % (AUTO) 0.4 % (0.0-2.0); EOSINOPHILS # (AUTO) 0.3 K/uL (0.0-0.7); EOSINOPHILS % (AUTO) 3.8 % (0.0-7.0); HEMATOCRIT 41.8 % (36.7-47.1); HEMOGLOBIN 14.3 g/dL (12.5-16.3); LYMPHOCYTES # (AUTO) 1.9 K/uL (20.0-40.0); LYMPHOCYTES % (AUTO) 26.5 % (20.5-51.5); MEAN CORPUSCULAR HEMOGLOBIN 30.2 uug (23.8-33.4); MEAN CORPUSCULAR HGB CONC 34 g/dL (32.5-36.3); MEAN CORPUSCULAR VOLUME 88.4 fL (73.0-96.2); MONOCYTES # (AUTO) 0.6 K/uL (2.0-10.0); MONOCYTES % (AUTO) 7.6 % (0.0-11.0); NEUTROPHILS # (AUTO) 4.5 K/uL (1.8-8.9); NEUTROPHILS % (AUTO) 61.7 % (38.5-71.5); PLATELET COUNT (AUTO) 209 K/uL (152-348); RED BLOOD CELL COUNT(AUTO) 4.73 MIL/uL (4.06-5.63); WHITE BLOOD COUNT (AUTO) 7.3 K/uL (3.6-10.2)
[2020-06-11 07:29] LABS: CREATININE 0.8 mg/dL (0.6-1.3); MAGNESIUM 2.2 mg/dL (1.8-2.4); PHOSPHOROUS 3.9 mg/dL (2.5-4.9); POTASSIUM 4.8 mmol/L (3.5-5.1)
[2020-06-11] MEDS: OLANZAPINE 2.5 MG TABLET GT PRN (07:36)
[2020-06-11] MEDS: JEVITY 1.2 1000 ML LIQUID GT PRN ×2 (07:45→17:43)
[2020-06-11 08:03] VITALS: BP 168/64
[2020-06-11] MEDS: FINASTERIDE 5 MG TABLET GT SCH (08:08)
[2020-06-11] MEDS: DULOXETINE 20 MG CAPSULE.DR GT SCH (08:08)
[2020-06-11] MEDS: COD LIVER OIL/ZINC OXIDE OINT 113 GM TUBE TP SCH ×2 (08:08→20:46)
[2020-06-11] MEDS: VITAMINS A AND D OINT TP SCH (08:08)
[2020-06-11] MEDS: HYDROGEN PEROXIDE 3% 118 ML BOTTLE TP SCH ×2 (09:22→21:17)
[2020-06-11 20:08] VITALS: BP 145/86
[2020-06-11] MEDS: MULTIVIT, IRON, MIN NO. 8, FA TABLET GT SCH (20:46)
[2020-06-11] MEDS: ACETAMINOPHEN 650 MG/20 ML UDC- SA PATIENTS-PAIN ONLY GT PRN (20:47)
--- NOTE | 2020-06-12 02:30 | NUR ---
Change previous GT site care to wash with soap and water and cover with dry dressing daily.
[2020-06-12] MEDS: PANTOPRAZOLE ORAL SUSPENSION 40 MG SUSPDR.PKT GT SCH (06:03)
[2020-06-12 07:44] VITALS: BP 126/75
[2020-06-12] MEDS: FINASTERIDE 5 MG TABLET GT SCH (08:19)
[2020-06-12] MEDS: DULOXETINE 20 MG CAPSULE.DR GT SCH (08:19)
[2020-06-12] MEDS: VITAMINS A AND D OINT TP SCH (08:19)
[2020-06-12] MEDS: COD LIVER OIL/ZINC OXIDE OINT 113 GM TUBE TP SCH ×2 (08:19→20:14)
[2020-06-12] MEDS: HYDROGEN PEROXIDE 3% 118 ML BOTTLE TP SCH ×2 (09:56→19:05)
[2020-06-12] MEDS: JEVITY 1.2 1000 ML LIQUID GT PRN ×2 (11:35→20:14)
[2020-06-12 20:13] VITALS: BP 122/62
[2020-06-12] MEDS: POLYVINYL ALCOHOL OPHT DROPS 15 ML BOTTLE EACHEYE PRN (20:14)
[2020-06-12] MEDS: MULTIVIT, IRON, MIN NO. 8, FA TABLET GT SCH (20:14)
[2020-06-13] MEDS: PANTOPRAZOLE ORAL SUSPENSION 40 MG SUSPDR.PKT GT SCH (05:08)
[2020-06-13 07:32] VITALS: BP 148/71
[2020-06-13] MEDS: COD LIVER OIL/ZINC OXIDE OINT 113 GM TUBE TP SCH ×2 (08:45→21:04)
[2020-06-13] MEDS: VITAMINS A AND D OINT TP SCH (08:45)
[2020-06-13] MEDS: DULOXETINE 20 MG CAPSULE.DR GT SCH (08:45)
[2020-06-13] MEDS: FINASTERIDE 5 MG TABLET GT SCH (08:45)
[2020-06-13] MEDS: HYDROGEN PEROXIDE 3% 118 ML BOTTLE TP SCH ×2 (09:14→21:04)
[2020-06-13 20:08] VITALS: BP 140/73
[2020-06-13] MEDS: MULTIVIT, IRON, MIN NO. 8, FA TABLET GT SCH (21:04)
[2020-06-14] MEDS: JEVITY 1.2 1000 ML LIQUID GT PRN (03:14)
[2020-06-14] MEDS: PANTOPRAZOLE ORAL SUSPENSION 40 MG SUSPDR.PKT GT SCH (05:26)
[2020-06-14 07:45] VITALS: BP 140/82
[2020-06-14] MEDS: COD LIVER OIL/ZINC OXIDE OINT 113 GM TUBE TP SCH ×2 (08:41→21:26)
[2020-06-14] MEDS: FINASTERIDE 5 MG TABLET GT SCH (08:41)
[2020-06-14] MEDS: DULOXETINE 20 MG CAPSULE.DR GT SCH (08:41)
[2020-06-14] MEDS: VITAMINS A AND D OINT TP SCH (08:41)
[2020-06-14] MEDS: HYDROGEN PEROXIDE 3% 118 ML BOTTLE TP SCH ×2 (09:00→20:51)
--- NOTE | 2020-06-14 12:19 | NUR ---
SEEN BY CLAYTON Leblanc AND WITH NNO.
[2020-06-14 20:15] VITALS: BP 127/75
[2020-06-14] MEDS: ACETAMINOPHEN 650 MG/20 ML UDC- SA PATIENTS-PAIN ONLY GT PRN (21:26)
[2020-06-14] MEDS: MULTIVIT, IRON, MIN NO. 8, FA TABLET GT SCH (21:26)
[2020-06-15] MEDS: PANTOPRAZOLE ORAL SUSPENSION 40 MG SUSPDR.PKT GT SCH (06:36)
[2020-06-15] MEDS: JEVITY 1.2 1000 ML LIQUID GT PRN (06:36)
[2020-06-15 07:26] VITALS: BP 142/81
[2020-06-15] MEDS: FINASTERIDE 5 MG TABLET GT SCH (08:24)
[2020-06-15] MEDS: COD LIVER OIL/ZINC OXIDE OINT 113 GM TUBE TP SCH ×2 (08:24→20:45)
[2020-06-15] MEDS: VITAMINS A AND D OINT TP SCH (08:24)
[2020-06-15] MEDS: DULOXETINE 20 MG CAPSULE.DR GT SCH (08:24)
[2020-06-15] MEDS: HYDROGEN PEROXIDE 3% 118 ML BOTTLE TP SCH ×2 (09:17→21:03)
--- NOTE | 2020-06-15 16:16 | NUR ---
INTERDISCIPLINARY PLAN OF CARE CONFERENCE was held today. Patient's was not able to participate in the IDT meetings. Dr. Trujillo and the Interdisciplinary Team reviewed the current plan of care in detail. RN reported on patient's medical condition, and findings of recent labs. See RN IDT conference notes. No major changes in medical condition were reported by nursing or by the other disciplines. See all disciplines IDT notes and physician's progress notes for additional details.
[2020-06-15 20:22] VITALS: BP 117/63
[2020-06-15] MEDS: MULTIVIT, IRON, MIN NO. 8, FA TABLET GT SCH (20:45)
[2020-06-16] MEDS: PANTOPRAZOLE ORAL SUSPENSION 40 MG SUSPDR.PKT GT SCH (06:04)
[2020-06-16 07:38] VITALS: BP 124/67
[2020-06-16] MEDS: DULOXETINE 20 MG CAPSULE.DR GT SCH (08:08)
[2020-06-16] MEDS: FINASTERIDE 5 MG TABLET GT SCH (08:08)
[2020-06-16] MEDS: COD LIVER OIL/ZINC OXIDE OINT 113 GM TUBE TP SCH ×2 (08:08→20:35)
[2020-06-16] MEDS: VITAMINS A AND D OINT TP SCH (08:09)
[2020-06-16 19:48] VITALS: BP 128/70
[2020-06-16] MEDS: MULTIVIT, IRON, MIN NO. 8, FA TABLET GT SCH (20:35)
[2020-06-16] MEDS: OLANZAPINE 2.5 MG TABLET GT PRN (20:37)
[2020-06-16] MEDS: HYDROGEN PEROXIDE 3% 118 ML BOTTLE TP SCH ×2 (21:15→21:20)
[2020-06-16] MEDS: JEVITY 1.2 1000 ML LIQUID GT PRN (23:30)
[2020-06-17] MEDS: PANTOPRAZOLE ORAL SUSPENSION 40 MG SUSPDR.PKT GT SCH (06:07)
[2020-06-17] MEDS: HYDROGEN PEROXIDE 3% 118 ML BOTTLE TP SCH ×2 (07:14→20:53)
[2020-06-17 07:32] VITALS: BP 124/62
[2020-06-17] MEDS: DULOXETINE 20 MG CAPSULE.DR GT SCH (08:31)
[2020-06-17] MEDS: VITAMINS A AND D OINT TP SCH (08:31)
[2020-06-17] MEDS: FINASTERIDE 5 MG TABLET GT SCH (08:31)
[2020-06-17] MEDS: COD LIVER OIL/ZINC OXIDE OINT 113 GM TUBE TP SCH ×2 (08:31→20:44)
[2020-06-17] MEDS: JEVITY 1.2 1000 ML LIQUID GT PRN (12:56)
[2020-06-17 19:52] VITALS: BP 139/75
[2020-06-17] MEDS: MULTIVIT, IRON, MIN NO. 8, FA TABLET GT SCH (20:44)
[2020-06-17] MEDS: OLANZAPINE 2.5 MG TABLET GT PRN (20:45)
[2020-06-18] MEDS: JEVITY 1.2 1000 ML LIQUID GT PRN (00:55)
[2020-06-18] MEDS: PANTOPRAZOLE ORAL SUSPENSION 40 MG SUSPDR.PKT GT SCH (05:56)
[2020-06-18 07:41] VITALS: BP 141/75
[2020-06-18] MEDS: HYDROGEN PEROXIDE 3% 118 ML BOTTLE TP SCH ×2 (09:00→21:20)
[2020-06-18] MEDS: VITAMINS A AND D OINT TP SCH (09:00)
[2020-06-18] MEDS: DULOXETINE 20 MG CAPSULE.DR GT SCH (09:00)
[2020-06-18] MEDS: COD LIVER OIL/ZINC OXIDE OINT 113 GM TUBE TP SCH ×2 (09:00→21:00)
[2020-06-18] MEDS: FINASTERIDE 5 MG TABLET GT SCH (09:00)
[2020-06-18 20:00] VITALS: BP 141/80
[2020-06-18] MEDS: MULTIVIT, IRON, MIN NO. 8, FA TABLET GT SCH (21:00)
[2020-06-19] MEDS: JEVITY 1.2 1000 ML LIQUID GT PRN (02:56)
[2020-06-19] MEDS: PANTOPRAZOLE ORAL SUSPENSION 40 MG SUSPDR.PKT GT SCH (06:23)
[2020-06-19 08:12] VITALS: BP 118/52
[2020-06-19] MEDS: HYDROGEN PEROXIDE 3% 118 ML BOTTLE TP SCH ×2 (08:45→21:46)
[2020-06-19] MEDS: DULOXETINE 20 MG CAPSULE.DR GT SCH (09:03)
[2020-06-19] MEDS: FINASTERIDE 5 MG TABLET GT SCH (09:03)
[2020-06-19] MEDS: COD LIVER OIL/ZINC OXIDE OINT 113 GM TUBE TP SCH ×2 (09:03→20:22)
[2020-06-19] MEDS: VITAMINS A AND D OINT TP SCH (09:04)
[2020-06-19 20:00] VITALS: BP 124/61
[2020-06-19] MEDS: MULTIVIT, IRON, MIN NO. 8, FA TABLET GT SCH (20:22)
[2020-06-19] MEDS: OLANZAPINE 2.5 MG TABLET GT PRN (20:23)
[2020-06-20] MEDS: PANTOPRAZOLE ORAL SUSPENSION 40 MG SUSPDR.PKT GT SCH (05:35)
[2020-06-20 07:47] VITALS: BP 122/54
[2020-06-20] MEDS: HYDROGEN PEROXIDE 3% 118 ML BOTTLE TP SCH ×2 (08:06→20:38)
[2020-06-20] MEDS: FINASTERIDE 5 MG TABLET GT SCH (09:05)
[2020-06-20] MEDS: VITAMINS A AND D OINT TP SCH (09:06)
[2020-06-20] MEDS: DULOXETINE 20 MG CAPSULE.DR GT SCH (09:06)
[2020-06-20] MEDS: COD LIVER OIL/ZINC OXIDE OINT 113 GM TUBE TP SCH ×2 (09:06→20:22)
[2020-06-20] MEDS: JEVITY 1.2 1000 ML LIQUID GT PRN ×2 (11:25→21:58)
--- NOTE | 2020-06-20 16:30 | NUR ---
Covid19 test done.
[2020-06-20 20:01] VITALS: BP 135/70
[2020-06-20] MEDS: MULTIVIT, IRON, MIN NO. 8, FA TABLET GT SCH (20:22)
[2020-06-20] MEDS: OLANZAPINE 2.5 MG TABLET GT PRN (20:23)
[2020-06-21] MEDS: PANTOPRAZOLE ORAL SUSPENSION 40 MG SUSPDR.PKT GT SCH (05:34)
[2020-06-21] MEDS: HYDROGEN PEROXIDE 3% 118 ML BOTTLE TP SCH ×2 (07:27→20:51)
[2020-06-21 07:32] VITALS: BP 130/83
[2020-06-21] MEDS: DULOXETINE 20 MG CAPSULE.DR GT SCH (08:42)
[2020-06-21] MEDS: COD LIVER OIL/ZINC OXIDE OINT 113 GM TUBE TP SCH ×2 (08:42→22:00)
[2020-06-21] MEDS: FINASTERIDE 5 MG TABLET GT SCH (08:42)
[2020-06-21] MEDS: VITAMINS A AND D OINT TP SCH (08:42)
--- NOTE | 2020-06-21 15:42 | NUR ---
SW called patient's Bobby [phone] and informed her of possible COVID-19 exposure and testing plan for the current week and next week, as mandated by [facility] regulations. Bobby expressed understanding, and thanked this SW for the information provided.
[2020-06-21] MEDS: OLANZAPINE 2.5 MG TABLET GT PRN ×2 (16:00→23:27)
[2020-06-21 20:02] VITALS: BP 131/74
[2020-06-21] MEDS: MULTIVIT, IRON, MIN NO. 8, FA TABLET GT SCH (21:59)
[2020-06-22] MEDS: JEVITY 1.2 1000 ML LIQUID GT PRN ×2 (01:19→16:17)
[2020-06-22] MEDS: PANTOPRAZOLE ORAL SUSPENSION 40 MG SUSPDR.PKT GT SCH (06:06)
[2020-06-22 07:26] VITALS: BP 153/71
[2020-06-22] MEDS: COD LIVER OIL/ZINC OXIDE OINT 113 GM TUBE TP SCH ×2 (08:36→21:16)
[2020-06-22] MEDS: VITAMINS A AND D OINT TP SCH (08:36)
[2020-06-22] MEDS: FINASTERIDE 5 MG TABLET GT SCH (08:36)
[2020-06-22] MEDS: DULOXETINE 20 MG CAPSULE.DR GT SCH (08:36)
[2020-06-22 08:44] LABS: BASOPHILS # (AUTO) 0.1 K/uL (0.0-8.0); BASOPHILS % (AUTO) 0.8 % (0.0-2.0); EOSINOPHILS # (AUTO) 0.6 K/uL (0.0-0.7); EOSINOPHILS % (AUTO) 7.6 % (0.0-7.0); HEMATOCRIT 44.1 % (36.7-47.1); HEMOGLOBIN 14.4 g/dL (12.5-16.3); LYMPHOCYTES # (AUTO) 1.9 K/uL (20.0-40.0); LYMPHOCYTES % (AUTO) 25.9 % (20.5-51.5); MEAN CORPUSCULAR HEMOGLOBIN 29.3 uug (23.8-33.4); MEAN CORPUSCULAR HGB CONC 33 g/dL (32.5-36.3); MONOCYTES # (AUTO) 0.5 K/uL (2.0-10.0); MONOCYTES % (AUTO) 6.7 % (0.0-11.0); NEUTROPHILS # (AUTO) 4.4 K/uL (1.8-8.9); PLATELET COUNT (AUTO) 222 K/uL (152-348); RED BLOOD CELL COUNT(AUTO) 4.91 MIL/uL (4.06-5.63); WHITE BLOOD COUNT (AUTO) 7.5 K/uL (3.6-10.2)
[2020-06-22 08:53] LABS: CREATININE 0.8 mg/dL (0.6-1.3); MAGNESIUM 1.9 mg/dL (1.8-2.4); PHOSPHOROUS 3.6 mg/dL (2.5-4.9); POTASSIUM 4.7 mmol/L (3.5-5.1)
[2020-06-22] MEDS: HYDROGEN PEROXIDE 3% 118 ML BOTTLE TP SCH ×2 (09:35→21:23)
[2020-06-22 20:43] VITALS: BP 127/66
[2020-06-22] MEDS: MULTIVIT, IRON, MIN NO. 8, FA TABLET GT SCH (21:15)
[2020-06-23] MEDS: OLANZAPINE 2.5 MG TABLET GT PRN ×3 (01:11→16:39)
[2020-06-23] MEDS: JEVITY 1.2 1000 ML LIQUID GT PRN ×2 (05:00→16:41)
[2020-06-23] MEDS: PANTOPRAZOLE ORAL SUSPENSION 40 MG SUSPDR.PKT GT SCH (06:03)
[2020-06-23 08:00] VITALS: BP 151/85
[2020-06-23] MEDS: DULOXETINE 20 MG CAPSULE.DR GT SCH (08:56)
[2020-06-23] MEDS: COD LIVER OIL/ZINC OXIDE OINT 113 GM TUBE TP SCH ×2 (08:56→21:07)
[2020-06-23] MEDS: VITAMINS A AND D OINT TP SCH (08:56)
[2020-06-23] MEDS: FINASTERIDE 5 MG TABLET GT SCH (08:56)
[2020-06-23] MEDS: ACETAMINOPHEN 650 MG/20 ML UDC- SA PATIENTS-PAIN ONLY GT PRN ×2 (08:57→16:40)
[2020-06-23] MEDS: HYDROGEN PEROXIDE 3% 118 ML BOTTLE TP SCH ×2 (09:05→20:06)
--- NOTE | 2020-06-23 20:01 | NUR ---
Bobby Pt's notified regarding the Covid 19 results negative.
[2020-06-23 20:14] VITALS: BP 132/74
[2020-06-23] MEDS: MULTIVIT, IRON, MIN NO. 8, FA TABLET GT SCH (21:07)
[2020-06-24] MEDS: OLANZAPINE 2.5 MG TABLET GT PRN ×2 (02:45→14:15)
[2020-06-24] MEDS: PANTOPRAZOLE ORAL SUSPENSION 40 MG SUSPDR.PKT GT SCH (05:38)
[2020-06-24 08:04] VITALS: BP 136/81
[2020-06-24] MEDS: COD LIVER OIL/ZINC OXIDE OINT 113 GM TUBE TP SCH ×2 (08:15→21:04)
[2020-06-24] MEDS: DULOXETINE 20 MG CAPSULE.DR GT SCH (08:15)
[2020-06-24] MEDS: FINASTERIDE 5 MG TABLET GT SCH (08:15)
[2020-06-24] MEDS: VITAMINS A AND D OINT TP SCH (08:16)
[2020-06-24] MEDS: HYDROGEN PEROXIDE 3% 118 ML BOTTLE TP SCH ×2 (09:00→21:00)
[2020-06-24 20:25] VITALS: BP 120/73
[2020-06-24] MEDS: MULTIVIT, IRON, MIN NO. 8, FA TABLET GT SCH (21:04)
[2020-06-24] MEDS: ACETAMINOPHEN 650 MG/20 ML UDC- SA PATIENTS-PAIN ONLY GT PRN (23:19)
[2020-06-25] MEDS: OLANZAPINE 2.5 MG TABLET GT PRN ×2 (01:19→13:45)
[2020-06-25] MEDS: PANTOPRAZOLE ORAL SUSPENSION 40 MG SUSPDR.PKT GT SCH (06:08)
[2020-06-25 08:00] VITALS: BP 148/78
[2020-06-25] MEDS: DULOXETINE 20 MG CAPSULE.DR GT SCH (08:18)
[2020-06-25] MEDS: FINASTERIDE 5 MG TABLET GT SCH (08:18)
[2020-06-25] MEDS: VITAMINS A AND D OINT TP SCH (08:19)
[2020-06-25] MEDS: COD LIVER OIL/ZINC OXIDE OINT 113 GM TUBE TP SCH ×2 (08:19→21:34)
[2020-06-25] MEDS: HYDROGEN PEROXIDE 3% 118 ML BOTTLE TP SCH ×2 (08:39→21:20)
[2020-06-25] MEDS: JEVITY 1.2 1000 ML LIQUID GT PRN (12:00)
[2020-06-25] MEDS: ACETAMINOPHEN 650 MG/20 ML UDC- SA PATIENTS-PAIN ONLY GT PRN (12:39)
[2020-06-25] MEDS: ONDANSETRON HCL 4 MG TABLET GT PRN (12:39)
[2020-06-25 20:14] VITALS: BP 126/66
[2020-06-25] MEDS: MULTIVIT, IRON, MIN NO. 8, FA TABLET GT SCH (21:34)
[2020-06-26] MEDS: JEVITY 1.2 1000 ML LIQUID GT PRN ×2 (00:53→15:54)
[2020-06-26] MEDS: OLANZAPINE 2.5 MG TABLET GT PRN ×3 (02:11→17:50)
[2020-06-26] MEDS: PANTOPRAZOLE ORAL SUSPENSION 40 MG SUSPDR.PKT GT SCH (06:04)
[2020-06-26 07:50] VITALS: BP 119/70
[2020-06-26] MEDS: HYDROGEN PEROXIDE 3% 118 ML BOTTLE TP SCH ×2 (08:07→21:32)
[2020-06-26] MEDS: DULOXETINE 20 MG CAPSULE.DR GT SCH (08:59)
[2020-06-26] MEDS: VITAMINS A AND D OINT TP SCH (09:00)
[2020-06-26] MEDS: FINASTERIDE 5 MG TABLET GT SCH (09:00)
[2020-06-26] MEDS: COD LIVER OIL/ZINC OXIDE OINT 113 GM TUBE TP SCH ×2 (09:00→20:54)
[2020-06-26] MEDS: ACETAMINOPHEN 650 MG/20 ML UDC- SA PATIENTS-PAIN ONLY GT PRN ×2 (09:04→21:07)
--- NOTE | 2020-06-26 18:21 | NUR ---
Pt administered Zyprexa 2.5mg twice within shift for episodes of restlessness as well as Tylenol for discomfort. Medication was not effective. Pt continued to display restlessness throughout the whole shift regardless of medication administration and comfort measures. Will continue to monitor.
[2020-06-26 20:12] VITALS: BP 125/53
[2020-06-26] MEDS: MULTIVIT, IRON, MIN NO. 8, FA TABLET GT SCH (20:54)
--- NOTE | 2020-06-27 | NUR ---
PER RT REPORTED PT HAS DESATURATION 75-80% O2 WAS INCREASE TO 10 LPM AND AMBU WAS BAGGING BY RT O2 SAT UP TO 90% SUCTION VIA TRACH AND ORAL WITH THICK SECRETION BREATHING TX WAS GIVEN ORDER.CONTINUE MONITOR O2 SAT [id number]%.V/S WAS CHECKING T=97.4 P=91 R=28/MIN B/P=135/77MMHG.CONTINUE MONITOR O2 SAT.KEEP CLEAN AND DRY AND COMFORTABLE.
--- NOTE | 2020-06-27 | NUR ---
RN CALLED RT TO CHECKED AND ASSESSED PT STATUS AT THIS TIME. SPO2 80%, PULSE 92, B/P 135/77. SUCTION LAVAGE PT LARGE AMOUNT OF THICK MUCUS PLUG. BAGGED PT WITH 100% O2 AND SPO2 IMPROVED TO 97% AT ONE POINT. IN LINE TX GIVEN WITH UD ALBUTEROL + UD ATROVENT ORDERED. SUCTION PRN. BACK ON CONTINUOUS AEROSOL AT 60%. MONITORED PT CONTINUOUSLY, RN AT BEDSIDE. PT CONTINUES TO DESAT. DR VOGT NOTIFIED AND NEW ORDER CARRIED OUT TO PLACE PT ON VENT WITH FOLLOWING SETTINGS, TRACH CHANGED TO SHILEY 8DCT CUFFED. NO ADVERSE REACTION NOTED. PLACED PT ON VENT, AC 16 VT 550 PEEP 5 FIO2 2LPM BLEED IN. SPO2 87%. INCREASED TO 3LPM BLEED IN RN NOTIFIED. SPO2 95%. WILL CONTINUE TO MONITOR.
--- NOTE | 2020-06-27 00:10 | NUR ---
ACCORDING PER RT INFORM TO INCREASED TO3LPM BLEED IN O2 SAT=95% CONTINUE MONITOR FOR DESATURATION.
--- NOTE | 2020-06-27 00:30 | NUR ---
PAGED OB TECH FOR REGARDING PT DESATURATION WITH NEW ORDER.VENTILATOR SETTING AC 16 TV 550 PEEP 5 FIO2 28%.LAB CBC BMP ABG CHEST X -RAY IN AM AT 9.00AM NOTED.AND IF PT STILL HAS DESATURATION TRANSFER TO ER FOR EVALUATION. CONTINUE MONITOR FOR O2 SAT.
[2020-06-27] MEDS: ACETAMINOPHEN 650 MG/20 ML UDC- SA PATIENTS-PAIN ONLY GT PRN ×2 (04:00→22:21)
--- NOTE | 2020-06-27 06:27 | NUR ---
PT ON VENT WITH TRACH NO SOB DISTRESS.TEMPERATURE WAS DPYWP=997.3 CONTINUE MONITOR AND COOLING MEASURES WAS GIVEN LAB CBC BMP WAS DONE AWAITING FOR LAB RESULT.
[2020-06-27] MEDS: PANTOPRAZOLE ORAL SUSPENSION 40 MG SUSPDR.PKT GT SCH (06:57)
[2020-06-27 07:00] LABS: BASOPHILS # (AUTO) 0.1 K/uL (0.0-8.0); BASOPHILS % (AUTO) 0.6 % (0.0-2.0); EOSINOPHILS % (AUTO) 0.1 % (0.0-7.0); HEMATOCRIT 39.8 % (36.7-47.1); HEMOGLOBIN 12.9 g/dL (12.5-16.3); LYMPHOCYTES # (AUTO) 1.2 K/uL (20.0-40.0); LYMPHOCYTES % (AUTO) 12.2 % (20.5-51.5); MEAN CORPUSCULAR HEMOGLOBIN 29.1 uug (23.8-33.4); MEAN CORPUSCULAR HGB CONC 32 g/dL (32.5-36.3); MEAN CORPUSCULAR VOLUME 89.7 fL (73.0-96.2); MONOCYTES # (AUTO) 0.7 K/uL (2.0-10.0); MONOCYTES % (AUTO) 7.4 % (0.0-11.0); NEUTROPHILS # (AUTO) 7.7 K/uL (1.8-8.9); NEUTROPHILS % (AUTO) 79.7 % (38.5-71.5); PLATELET COUNT (AUTO) 196 K/uL (152-348); RED BLOOD CELL COUNT(AUTO) 4.44 MIL/uL (4.06-5.63); WHITE BLOOD COUNT (AUTO) 9.7 K/uL (3.6-10.2)
[2020-06-27 07:56] VITALS: BP 107/60
[2020-06-27] MEDS: DULOXETINE 20 MG CAPSULE.DR GT SCH (08:35)
[2020-06-27] MEDS: VITAMINS A AND D OINT TP SCH (08:35)
[2020-06-27] MEDS: FINASTERIDE 5 MG TABLET GT SCH (08:35)
[2020-06-27] MEDS: COD LIVER OIL/ZINC OXIDE OINT 113 GM TUBE TP SCH ×2 (08:35→20:03)
[2020-06-27] MEDS: HYDROGEN PEROXIDE 3% 118 ML BOTTLE TP SCH ×2 (08:41→19:08)
--- NOTE | 2020-06-27 09:30 | NUR ---
FIO2 TITRATED FROM 3LPM BLEED-IN TO 2LPM BLEED-IN PER ABG RESULTS. CHARGE NURSE ANGIE MADE AWARE.
[2020-06-27 09:34] LABS: ABG BASE EXCESS -1.5 mmol/L; ABG HCO3 21.2 mmol/L; ABG PH 7.468 (7.350-7.450); ABG PO2 124.9 mmHg (75.0-100.0); ABG SITE LEFT BRACHIAL; ABG TOTAL HEMOGLOBIN 12.8 G/dL (13.5-18.0); COHb 1.2 % (0.5-1.5); MetHb 0.2 % (0.0-1.5); O2Hb 97.9 % (94.0-97.0); VENT MODE VENT - A/C; VT, ABG 550 mL
[2020-06-27] MEDS: MULTIVIT, IRON, MIN NO. 8, FA TABLET GT SCH (20:03)
[2020-06-27 20:17] VITALS: BP 130/57
[2020-06-28] MEDS: JEVITY 1.2 1000 ML LIQUID GT PRN ×2 (01:47→17:38)
[2020-06-28] MEDS: PANTOPRAZOLE ORAL SUSPENSION 40 MG SUSPDR.PKT GT SCH (05:49)
[2020-06-28 07:34] VITALS: BP 130/82
[2020-06-28] MEDS: DULOXETINE 20 MG CAPSULE.DR GT SCH (08:21)
[2020-06-28] MEDS: COD LIVER OIL/ZINC OXIDE OINT 113 GM TUBE TP SCH ×2 (08:22→20:24)
[2020-06-28] MEDS: VITAMINS A AND D OINT TP SCH (08:22)
[2020-06-28] MEDS: FINASTERIDE 5 MG TABLET GT SCH (08:22)
[2020-06-28] MEDS: HYDROGEN PEROXIDE 3% 118 ML BOTTLE TP SCH ×2 (09:31→21:05)
[2020-06-28 11:51] LABS: CREATININE 0.8 mg/dL (0.6-1.3); POTASSIUM 3.9 mmol/L (3.5-5.1)
--- NOTE | 2020-06-28 13:57 | NUR ---
PT. WAS SEEN AND EXAMINED BY DR. APOORVA Hughes AND CLAYTON Leblanc AND WITH NEW ORDERS CARRIED OUT .MESSAGE LEFT IN CELL PHONE VOICEMAIL OF PT'S RE: CALL BACK FOR AN UPDATE OF LATEST MEDICAL ORDERS.
[2020-06-28] MEDS: CEFEPIME HCL 1 G in IV DEXTROSE 5% 50 ML IV SCH ×2 (14:00→21:52)
--- NOTE | 2020-06-28 14:28 | NUR ---
NEW ORDER CARRIED OUT FROM DR. JOHNSON,STILL AWAITING FROM PT'S CLARICE TO CALL BACK.
--- NOTE | 2020-06-28 14:30 | NUR ---
CORRECTED ENTRY:NEW ORDERS CARRIED OUT FROM DR. GUERIN AND STILL WAITING FOR PT'S CLARICE TO CALL BACK.
--- NOTE | 2020-06-28 15:30 | NUR ---
NEW ORDER FOR COVID 19 TEST CARRIED OUT.
--- NOTE | 2020-06-28 15:57 | NUR ---
AND BROTHER MADE AWARE OF COVID TESTING.
--- NOTE | 2020-06-28 16:00 | NUR ---
PT'S IN AGREEMENT WITH MEDICAL ORDERS ,CALL WAS TRANSFERED TO PT'S ROOM SO SHE CAN LISTEN TO HER VOICE.NO A/R TO CEFEPIME OR VANCOMYCIN.RT . WRIST PERIPHERAL IV LINE # 22 AND LEFT WRIST PERIPHERAL LINE # 20 WITH GOOD BLOOD RETURN.
[2020-06-28] MEDS: MULTIVIT, IRON, MIN NO. 8, FA TABLET GT SCH (20:23)
[2020-06-28 20:29] VITALS: BP 125/70
[2020-06-29] MEDS: ONDANSETRON HCL 4 MG TABLET GT PRN (03:39)
[2020-06-29] MEDS: PANTOPRAZOLE ORAL SUSPENSION 40 MG SUSPDR.PKT GT SCH (05:17)
--- NOTE | 2020-06-29 05:32 | NUR ---
started on cefepime 1 gm iv for pneumonia and vancomycin 1 gm iv for pneumonia, no adverse reaction noted, no respiratory distress noted.
[2020-06-29] MEDS: CEFEPIME HCL 1 G in IV DEXTROSE 5% 50 ML IV SCH ×3 (06:09→21:51)
[2020-06-29 06:39] LABS: BASOPHILS % (AUTO) 0.3 % (0.0-2.0); EOSINOPHILS # (AUTO) 0.2 K/uL (0.0-0.7); EOSINOPHILS % (AUTO) 2.6 % (0.0-7.0); HEMATOCRIT 37.6 % (36.7-47.1); HEMOGLOBIN 12.5 g/dL (12.5-16.3); LYMPHOCYTES # (AUTO) 1.1 K/uL (20.0-40.0); LYMPHOCYTES % (AUTO) 14.3 % (20.5-51.5); MEAN CORPUSCULAR HEMOGLOBIN 29.6 uug (23.8-33.4); MEAN CORPUSCULAR HGB CONC 33 g/dL (32.5-36.3); MEAN CORPUSCULAR VOLUME 89.3 fL (73.0-96.2); MONOCYTES # (AUTO) 0.6 K/uL (2.0-10.0); MONOCYTES % (AUTO) 8.6 % (0.0-11.0); NEUTROPHILS # (AUTO) 5.6 K/uL (1.8-8.9); NEUTROPHILS % (AUTO) 74.2 % (38.5-71.5); PLATELET COUNT (AUTO) 155 K/uL (152-348); RED BLOOD CELL COUNT(AUTO) 4.22 MIL/uL (4.06-5.63); WHITE BLOOD COUNT (AUTO) 7.6 K/uL (3.6-10.2)
[2020-06-29 06:49] LABS: BILIRUBIN,TOTAL 0.5 mg/dL (0.2-1.0); CREATININE 0.9 mg/dL (0.6-1.3); POTASSIUM 3.7 mmol/L (3.5-5.1); TOTAL PROTEIN, SERUM 6.8 g/dL (6.4-8.2)
[2020-06-29 07:56] VITALS: BP 155/82
[2020-06-29] MEDS: HYDROGEN PEROXIDE 3% 118 ML BOTTLE TP SCH ×2 (09:06→21:15)
[2020-06-29] MEDS: VITAMINS A AND D OINT TP SCH (09:12)
[2020-06-29] MEDS: FINASTERIDE 5 MG TABLET GT SCH (09:12)
[2020-06-29] MEDS: COD LIVER OIL/ZINC OXIDE OINT 113 GM TUBE TP SCH ×2 (09:12→21:00)
[2020-06-29] MEDS: DULOXETINE 20 MG CAPSULE.DR GT SCH (09:12)
[2020-06-29] MEDS: JEVITY 1.2 1000 ML LIQUID GT PRN ×2 (09:20→22:36)
--- NOTE | 2020-06-29 13:15 | NUR ---
CLAYTON MCKEON AWARE OF HYPERGRANULATION TISSUE ON GT SITE SEE NOTES.
--- NOTE | 2020-06-29 13:15 | NUR ---
PT. NOTED WITH GT SITE HYPERGRANULATION TISSUE, PICTURE TAKEN AND LOCAL TX STARTED FROM CLAYTON Barclay.
[2020-06-29] MEDS: NEOMY/BACITRA/POLYMYXIN B OINT UD PACKET TP SCH ×2 (13:19→21:00)
[2020-06-29 20:00] VITALS: BP 135/90
[2020-06-29] MEDS: MULTIVIT, IRON, MIN NO. 8, FA TABLET GT SCH (21:00)
[2020-06-30] MEDS: CEFEPIME HCL 1 G in IV DEXTROSE 5% 50 ML IV SCH ×3 (05:12→22:02)
[2020-06-30] MEDS: PANTOPRAZOLE ORAL SUSPENSION 40 MG SUSPDR.PKT GT SCH (05:59)
[2020-06-30 06:45] LABS: CREATININE 0.8 mg/dL (0.6-1.3); POTASSIUM 3.7 mmol/L (3.5-5.1)
[2020-06-30 08:05] VITALS: BP 152/76
[2020-06-30] MEDS: COD LIVER OIL/ZINC OXIDE OINT 113 GM TUBE TP SCH ×2 (08:29→20:29)
[2020-06-30] MEDS: NEOMY/BACITRA/POLYMYXIN B OINT UD PACKET TP SCH ×2 (08:29→20:29)
[2020-06-30] MEDS: FINASTERIDE 5 MG TABLET GT SCH (08:29)
[2020-06-30] MEDS: DULOXETINE 20 MG CAPSULE.DR GT SCH (08:29)
[2020-06-30] MEDS: VITAMINS A AND D OINT TP SCH (08:30)
[2020-06-30] MEDS: HYDROGEN PEROXIDE 3% 118 ML BOTTLE TP SCH ×2 (09:00→20:29)
[2020-06-30] MEDS: JEVITY 1.2 1000 ML LIQUID GT PRN (12:42)
--- NOTE | 2020-06-30 14:30 | NUR ---
Seen and examined by Dr Smith with new orders noted.
--- NOTE | 2020-06-30 15:10 | NUR ---
Seen and examined by Dr Trujillo with new orders noted.
--- NOTE | 2020-06-30 18:22 | NUR ---
Bobby Pt's notified COVID 19 results is negative.Seen and examined by Dr Smith.Vancomycin Dc'd ,Cefepine last dose will be tomorrow at 0600 Am
--- NOTE | 2020-06-30 19:50 | NUR ---
PT REMAIN ON CONTINUOUS VENT. TRACH CARE DONE. TRACH IN PLACED AND SECURED WITH TRACH TIE. BACK UP TRACH AND AMBU BAG AT BEDSIDE. SUCTION LAVAGE PRN. VENT CHECKED. ALARMS WORKING WELL AND AUDIBLE. NO DISTRESS NOTED AT THIS TIME. WILL CONTINUE TO MONITOR.
[2020-06-30 20:00] VITALS: BP 128/71
[2020-06-30] MEDS: MULTIVIT, IRON, MIN NO. 8, FA TABLET GT SCH (20:29)
[2020-07-01] MEDS: JEVITY 1.2 1000 ML LIQUID GT PRN ×2 (01:02→11:07)
[2020-07-01] MEDS: CEFEPIME HCL 1 G in IV DEXTROSE 5% 50 ML IV SCH (05:10)
[2020-07-01] MEDS: PANTOPRAZOLE ORAL SUSPENSION 40 MG SUSPDR.PKT GT SCH (05:21)
--- NOTE | 2020-07-01 05:54 | NUR ---
cefepime 1 gm iv last dose at 06.00am then d/c as order noted.
--- NOTE | 2020-07-01 07:30 | NUR ---
PT RECEIVED TRACH TO VENT ON CMV, SHILEY #8 TRACH IS PATENT AND SECURE. VENT CHANGES MADE PER ORDER. PT IS NOW ON CPAP 5, PSV 6, AND 2LPM BLEED-IN O2. ADEQUATE VOLUMES OBSERVED, VITALS NORMAL, NO RESP. DISTRESS NOTED. BVM AND BACK-UP TRACH AT BEDSIDE. VENT PLUGGED INTO RED OUTLET. SUCTION PRN. WILL CONTINUE TO MONITOR.
[2020-07-01 07:48] VITALS: BP 136/58
[2020-07-01] MEDS: NEOMY/BACITRA/POLYMYXIN B OINT UD PACKET TP SCH ×2 (08:27→20:55)
[2020-07-01] MEDS: COD LIVER OIL/ZINC OXIDE OINT 113 GM TUBE TP SCH ×2 (08:27→20:54)
[2020-07-01] MEDS: FINASTERIDE 5 MG TABLET GT SCH (08:27)
[2020-07-01] MEDS: DULOXETINE 20 MG CAPSULE.DR GT SCH (08:27)
[2020-07-01] MEDS: VITAMINS A AND D OINT TP SCH (08:27)
[2020-07-01] MEDS: HYDROGEN PEROXIDE 3% 118 ML BOTTLE TP SCH ×2 (09:10→20:51)
--- NOTE | 2020-07-01 16:00 | NUR ---
VENT CHECK DONE, ADEQUATE VOLUMES NOTED, PT IS TACHYPNEIC, BUT NO RESP. DISTRESS NOTED. INFORMED. NO CHANGES MADE AT THIS TIME. WILL CONTINUE TO MONITOR.
[2020-07-01 20:00] VITALS: BP 100/63
--- NOTE | 2020-07-01 20:20 | NUR ---
TALKED TO RN GIANLUCA ABOUT NEW VENT ORDERS. VENT CHANGES MADE PER MD ORDERS. SETTINGS ARE ON MECHANICAL VENTILATOR NOTES. 2LPM BLEED-IN. NO SOB NOTED AT THIS TIME. WILL CONTINUE TO MONITOR.
[2020-07-01] MEDS: MULTIVIT, IRON, MIN NO. 8, FA TABLET GT SCH (20:54)
[2020-07-02 00:22] LABS: ABG BASE EXCESS 2.9 mmol/L; ABG HCO3 28.4 mmol/L; ABG PH 7.399 (7.350-7.450); ABG PO2 169.7 mmHg (75.0-100.0); ABG SITE LEFT RADIAL; ABG TOTAL HEMOGLOBIN 13.2 G/dL (13.5-18.0); COHb 0.8 % (0.5-1.5); MetHb 0.3 % (0.0-1.5); O2Hb 98.3 % (94.0-97.0); VENT MODE VENT - CPAP
[2020-07-02] MEDS: JEVITY 1.2 1000 ML LIQUID GT PRN ×2 (04:18→17:48)
[2020-07-02] MEDS: PANTOPRAZOLE ORAL SUSPENSION 40 MG SUSPDR.PKT GT SCH (05:54)
[2020-07-02 07:12] LABS: CREATININE 0.8 mg/dL (0.6-1.3); POTASSIUM 4.2 mmol/L (3.5-5.1)
[2020-07-02 07:55] VITALS: BP 124/74
[2020-07-02] MEDS: COD LIVER OIL/ZINC OXIDE OINT 113 GM TUBE TP SCH ×2 (08:38→21:00)
[2020-07-02] MEDS: VITAMINS A AND D OINT TP SCH (08:38)
[2020-07-02] MEDS: FINASTERIDE 5 MG TABLET GT SCH (08:38)
[2020-07-02] MEDS: NEOMY/BACITRA/POLYMYXIN B OINT UD PACKET TP SCH ×2 (08:38→21:00)
[2020-07-02] MEDS: DULOXETINE 20 MG CAPSULE.DR GT SCH (08:38)
[2020-07-02] MEDS: HYDROGEN PEROXIDE 3% 118 ML BOTTLE TP SCH ×2 (09:00→21:29)
[2020-07-02 20:58] VITALS: BP 114/56
[2020-07-02] MEDS: MULTIVIT, IRON, MIN NO. 8, FA TABLET GT SCH (21:00)
[2020-07-03] MEDS: PANTOPRAZOLE ORAL SUSPENSION 40 MG SUSPDR.PKT GT SCH (05:34)
[2020-07-03 07:49] VITALS: BP 118/61
[2020-07-03] MEDS: FINASTERIDE 5 MG TABLET GT SCH (09:46)
[2020-07-03] MEDS: DULOXETINE 20 MG CAPSULE.DR GT SCH (09:46)
[2020-07-03] MEDS: HYDROGEN PEROXIDE 3% 118 ML BOTTLE TP SCH ×2 (09:47→21:07)
[2020-07-03] MEDS: NEOMY/BACITRA/POLYMYXIN B OINT UD PACKET TP SCH ×2 (09:47→21:21)
[2020-07-03] MEDS: COD LIVER OIL/ZINC OXIDE OINT 113 GM TUBE TP SCH ×2 (09:47→21:21)
[2020-07-03] MEDS: VITAMINS A AND D OINT TP SCH (09:48)
[2020-07-03 20:45] VITALS: BP 104/60
[2020-07-03] MEDS: MULTIVIT, IRON, MIN NO. 8, FA TABLET GT SCH (21:21)
[2020-07-04] MEDS: JEVITY 1.2 1000 ML LIQUID GT PRN (00:35)
[2020-07-04] MEDS: PANTOPRAZOLE ORAL SUSPENSION 40 MG SUSPDR.PKT GT SCH (05:36)
[2020-07-04 06:12] LABS: CREATININE 0.6 mg/dL (0.6-1.3); POTASSIUM 4.6 mmol/L (3.5-5.1)
[2020-07-04] MEDS: HYDROGEN PEROXIDE 3% 118 ML BOTTLE TP SCH ×2 (07:15→21:15)
[2020-07-04 08:02] VITALS: BP 113/59
[2020-07-04] MEDS: FINASTERIDE 5 MG TABLET GT SCH (09:00)
[2020-07-04] MEDS: NEOMY/BACITRA/POLYMYXIN B OINT UD PACKET TP SCH ×2 (09:00→21:00)
[2020-07-04] MEDS: VITAMINS A AND D OINT TP SCH (09:00)
[2020-07-04] MEDS: COD LIVER OIL/ZINC OXIDE OINT 113 GM TUBE TP SCH ×2 (09:00→21:00)
[2020-07-04] MEDS: DULOXETINE 20 MG CAPSULE.DR GT SCH (09:00)
[2020-07-04 20:19] VITALS: BP 126/72
[2020-07-04] MEDS: MULTIVIT, IRON, MIN NO. 8, FA TABLET GT SCH (21:00)
[2020-07-05] MEDS: JEVITY 1.2 1000 ML LIQUID GT PRN (03:41)
[2020-07-05] MEDS: PANTOPRAZOLE ORAL SUSPENSION 40 MG SUSPDR.PKT GT SCH (05:45)
[2020-07-05 07:33] VITALS: BP 98/49
[2020-07-05] MEDS: HYDROGEN PEROXIDE 3% 118 ML BOTTLE TP SCH ×2 (07:42→21:55)
[2020-07-05] MEDS: VITAMINS A AND D OINT TP SCH (09:00)
[2020-07-05] MEDS: COD LIVER OIL/ZINC OXIDE OINT 113 GM TUBE TP SCH ×2 (09:00→21:32)
[2020-07-05] MEDS: FINASTERIDE 5 MG TABLET GT SCH (09:00)
[2020-07-05] MEDS: DULOXETINE 20 MG CAPSULE.DR GT SCH (09:00)
[2020-07-05] MEDS: NEOMY/BACITRA/POLYMYXIN B OINT UD PACKET TP SCH ×2 (09:00→21:32)
[2020-07-05 20:35] VITALS: BP 112/44
[2020-07-05] MEDS: MULTIVIT, IRON, MIN NO. 8, FA TABLET GT SCH (21:31)
[2020-07-06] MEDS: JEVITY 1.2 1000 ML LIQUID GT PRN (04:29)
[2020-07-06] MEDS: PANTOPRAZOLE ORAL SUSPENSION 40 MG SUSPDR.PKT GT SCH (05:37)
[2020-07-06 07:44] VITALS: BP 109/64
[2020-07-06] MEDS: NEOMY/BACITRA/POLYMYXIN B OINT UD PACKET TP SCH ×2 (09:00→21:25)
[2020-07-06] MEDS: DULOXETINE 20 MG CAPSULE.DR GT SCH (09:00)
[2020-07-06] MEDS: COD LIVER OIL/ZINC OXIDE OINT 113 GM TUBE TP SCH ×2 (09:00→21:25)
[2020-07-06] MEDS: VITAMINS A AND D OINT TP SCH (09:00)
[2020-07-06] MEDS: FINASTERIDE 5 MG TABLET GT SCH (09:00)
[2020-07-06] MEDS: HYDROGEN PEROXIDE 3% 118 ML BOTTLE TP SCH ×2 (09:30→20:52)
[2020-07-06 20:00] VITALS: BP 123/71
[2020-07-06] MEDS: MULTIVIT, IRON, MIN NO. 8, FA TABLET GT SCH (21:25)
[2020-07-07] MEDS: PANTOPRAZOLE ORAL SUSPENSION 40 MG SUSPDR.PKT GT SCH (05:32)
[2020-07-07] MEDS: HYDROGEN PEROXIDE 3% 118 ML BOTTLE TP SCH ×2 (07:30→21:05)
[2020-07-07 08:00] VITALS: BP 120/75
[2020-07-07] MEDS: DULOXETINE 20 MG CAPSULE.DR GT SCH (09:31)
[2020-07-07] MEDS: FINASTERIDE 5 MG TABLET GT SCH (09:31)
[2020-07-07] MEDS: COD LIVER OIL/ZINC OXIDE OINT 113 GM TUBE TP SCH ×2 (09:32→21:05)
[2020-07-07] MEDS: VITAMINS A AND D OINT TP SCH (09:32)
[2020-07-07] MEDS: NEOMY/BACITRA/POLYMYXIN B OINT UD PACKET TP SCH ×2 (09:32→21:05)
--- NOTE | 2020-07-07 13:05 | NUR ---
This SW and nurse manager code Elias Mata called patient's Bobby [phone] in response to a voicemail Bobby had left this SW earlier today regarding visitation. Bobby was not available, and therefore this SW left Bobby a voicemail message stating that her call was being returned, however this MARIETTA and Elias will try contacting her again later today.
--- NOTE | 2020-07-07 16:20 | NUR ---
Pt has elevated temp 101.4,Dr egan aware with new orders carried out,on cooling measures.
[2020-07-07 16:43] LABS: BASOPHILS % (AUTO) 0.2 % (0.0-2.0); HEMATOCRIT 37.6 % (36.7-47.1); HEMOGLOBIN 12.3 g/dL (12.5-16.3); LYMPHOCYTES # (AUTO) 0.8 K/uL (20.0-40.0); LYMPHOCYTES % (AUTO) 6.3 % (20.5-51.5); MEAN CORPUSCULAR HEMOGLOBIN 28.8 uug (23.8-33.4); MEAN CORPUSCULAR HGB CONC 33 g/dL (32.5-36.3); MEAN CORPUSCULAR VOLUME 88.4 fL (73.0-96.2); MONOCYTES # (AUTO) 0.6 K/uL (2.0-10.0); MONOCYTES % (AUTO) 4.5 % (0.0-11.0); NEUTROPHILS # (AUTO) 11.7 K/uL (1.8-8.9); PLATELET COUNT (AUTO) 186 K/uL (152-348); RED BLOOD CELL COUNT(AUTO) 4.26 MIL/uL (4.06-5.63); WHITE BLOOD COUNT (AUTO) 13.2 K/uL (3.6-10.2)
[2020-07-07 16:51] LABS: CREATININE 0.7 mg/dL (0.6-1.3); POTASSIUM 4.2 mmol/L (3.5-5.1)
--- NOTE | 2020-07-07 17:32 | NUR ---
5:09pm: This MARIETTA and nurse display department manager Elias Mata called patient's Bobby [phone]. Bobby was available and receptive to speaking with this MARIETTA and Elias. Bobby wanted to discuss the opportunity to visit the patient. Elias reminded Bobby about the [facility] visitation guidelines, however Bobby presented with an angry tone, and demanded that she has to see her . Elias validated Bobby's concerns and feelings, reiterated the visitation guidelines set forth by [facility] and stated that he would speak with administration about her concerns and get back to her as soon as possible. Bobby expressed appreciation and agreement. Elias and/or guille MCMANUS to contact patient's after speaking with administration.
--- NOTE | 2020-07-07 18:30 | NUR ---
Seen and examined by Ashwin Lassiter from infection disease,she agreed with Dr Luis kwong ,last temp 100,7.
--- NOTE | 2020-07-07 19:45 | NUR ---
Bobby pt's aware of new orders ,agreed with plan of care.
[2020-07-07 20:00] VITALS: BP 114/52
[2020-07-07 20:15] LABS: *BILIRUBIN,URIN NEGATIVE (NEGATIVE); *BLOOD, URINE NEGATIVE (NEGATIVE); *CLARITY,URINE CLEAR (CLEAR); *COLOR,URINE YELLOW (YELLOW); *KETONES,URINE NEGATIVE (NEGATIVE); LEUKOCYTE ESTERASE ,URINE NEGATIVE (NEGATIVE); NITRITE, URINE NEGATIVE (NEGATIVE); UGLUCOSE NEGATIVE (NEGATIVE)
--- NOTE | 2020-07-07 21:00 | NUR ---
I received a call from Cindy of [facility] stating that Zosyn was covered but she will be sending the medication by 0100 run and stated to start the dose at 0000. Zosyn order is 3.375 grams IVPB every 6 hours X 10 days for fever.
[2020-07-07] MEDS: MULTIVIT, IRON, MIN NO. 8, FA TABLET GT SCH (21:05)
[2020-07-07] MEDS: ACETAMINOPHEN 650 MG/20 ML UDC- SA PATIENTS-FEVER ONLY GT PRN (21:06)
--- NOTE | 2020-07-07 21:10 | NUR ---
Temp 100.6, Tylenol given as ordered and needed. Turned and repositioned for comfort. Will continue to monitor.
--- NOTE | 2020-07-08 | NUR ---
I initiated Zosyn 3.375 grams IV from the E-kit, no adverse reactions noted. Patient is afebrile, no signs of any respiratory distress, 02 sat is 99% , connected to vent, vent working properly. Gt feeding tolerating well, no N/N noted. Kept clean and comfortable, will continue monitor.
[2020-07-08] MEDS: JEVITY 1.2 1000 ML LIQUID GT PRN (01:00)
--- NOTE | 2020-07-08 01:58 | NUR ---
Temp re checked 97.5. Continue to monitor.
[2020-07-08] MEDS: PANTOPRAZOLE ORAL SUSPENSION 40 MG SUSPDR.PKT GT SCH (05:17)
[2020-07-08] MEDS: PIPERACILLIN SODIUM/TAZOBACTAM 3.375 G in IV DEXTROSE 5% 50 ML IV SCH ×8 (06:00→17:48)
[2020-07-08 08:00] VITALS: BP 120/75
[2020-07-08] MEDS: DULOXETINE 20 MG CAPSULE.DR GT SCH (08:24)
[2020-07-08] MEDS: FINASTERIDE 5 MG TABLET GT SCH (08:24)
[2020-07-08] MEDS: COD LIVER OIL/ZINC OXIDE OINT 113 GM TUBE TP SCH ×2 (08:24→20:07)
[2020-07-08] MEDS: VITAMINS A AND D OINT TP SCH (08:25)
[2020-07-08] MEDS: NEOMY/BACITRA/POLYMYXIN B OINT UD PACKET TP SCH ×2 (08:25→20:07)
[2020-07-08] MEDS: HYDROGEN PEROXIDE 3% 118 ML BOTTLE TP SCH ×2 (09:00→21:08)
--- NOTE | 2020-07-08 16:00 | NUR ---
SEEN BY DR. ELIZABETH JARAMILLO WITH NNO.
[2020-07-08 20:00] VITALS: BP 125/48
[2020-07-08] MEDS: MULTIVIT, IRON, MIN NO. 8, FA TABLET GT SCH (20:07)
--- NOTE | 2020-07-08 22:26 | NUR ---
On Zosyn 3.375 grams IVPB for fever, no adverse reactions noted. Patient is afebrile, no signs of any respiratory distress, 02 sat is 99% , connected to vent, vent working properly. Gt feeding tolerating well, no N/V noted.Turned and repositioned, Kept clean and comfortable, will continue monitor.
[2020-07-09] MEDS: PIPERACILLIN SODIUM/TAZOBACTAM 3.375 G in IV DEXTROSE 5% 50 ML IV SCH ×5 (00:48→23:31)
[2020-07-09] MEDS: PANTOPRAZOLE ORAL SUSPENSION 40 MG SUSPDR.PKT GT SCH (06:03)
[2020-07-09 07:58] VITALS: BP 127/70
[2020-07-09] MEDS: FINASTERIDE 5 MG TABLET GT SCH (08:49)
[2020-07-09] MEDS: COD LIVER OIL/ZINC OXIDE OINT 113 GM TUBE TP SCH ×2 (08:49→20:33)
[2020-07-09] MEDS: DULOXETINE 20 MG CAPSULE.DR GT SCH (08:49)
[2020-07-09] MEDS: VITAMINS A AND D OINT TP SCH (09:00)
[2020-07-09] MEDS: NEOMY/BACITRA/POLYMYXIN B OINT UD PACKET TP SCH ×2 (09:00→20:34)
[2020-07-09] MEDS: HYDROGEN PEROXIDE 3% 118 ML BOTTLE TP SCH ×2 (09:00→21:20)
--- NOTE | 2020-07-09 11:28 | NUR ---
This SW and nurse bond manager Elias called patient's Bobby [phone] this morning, as a follow-up to the conversation that was had with Bobby on 07/07 (see SS note dated 07/07). Elias informed patient's Bobby that he had spoken with administration regarding visitation guidelines, and had been informed by administration that [facility] visitation restrictions continue to remain in place at this time. Elias informed Bobby that visitation would not be allowed, however the facility continues to offer ZOOM for all families to video chat with the patients. Bobby stated that she will try to use ZOOM.
[2020-07-09] MEDS: ACETAMINOPHEN 650 MG/20 ML UDC- SA PATIENTS-PAIN ONLY GT PRN (16:38)
[2020-07-09 20:07] VITALS: BP 105/62
[2020-07-09] MEDS: MULTIVIT, IRON, MIN NO. 8, FA TABLET GT SCH (20:33)
[2020-07-10] MEDS: PANTOPRAZOLE ORAL SUSPENSION 40 MG SUSPDR.PKT GT SCH (05:28)
[2020-07-10] MEDS: PIPERACILLIN SODIUM/TAZOBACTAM 3.375 G in IV DEXTROSE 5% 50 ML IV SCH ×4 (05:30→23:43)
[2020-07-10 08:00] VITALS: BP 102/64
[2020-07-10] MEDS: NEOMY/BACITRA/POLYMYXIN B OINT UD PACKET TP SCH ×2 (08:56→20:21)
[2020-07-10] MEDS: VITAMINS A AND D OINT TP SCH (08:56)
[2020-07-10] MEDS: COD LIVER OIL/ZINC OXIDE OINT 113 GM TUBE TP SCH ×2 (08:56→20:21)
[2020-07-10] MEDS: DULOXETINE 20 MG CAPSULE.DR GT SCH (08:56)
[2020-07-10] MEDS: FINASTERIDE 5 MG TABLET GT SCH (08:56)
[2020-07-10] MEDS: HYDROGEN PEROXIDE 3% 118 ML BOTTLE TP SCH ×2 (09:07→21:22)
[2020-07-10] MEDS: JEVITY 1.2 1000 ML LIQUID GT PRN ×2 (12:39→21:30)
[2020-07-10 19:59] VITALS: BP 127/72
[2020-07-10] MEDS: MULTIVIT, IRON, MIN NO. 8, FA TABLET GT SCH (20:21)
[2020-07-11] MEDS: PIPERACILLIN SODIUM/TAZOBACTAM 3.375 G in IV DEXTROSE 5% 50 ML IV SCH ×3 (05:28→17:22)
[2020-07-11] MEDS: PANTOPRAZOLE ORAL SUSPENSION 40 MG SUSPDR.PKT GT SCH (05:40)
[2020-07-11 07:38] VITALS: BP 110/65
[2020-07-11] MEDS: NEOMY/BACITRA/POLYMYXIN B OINT UD PACKET TP SCH ×2 (08:26→20:42)
[2020-07-11] MEDS: VITAMINS A AND D OINT TP SCH (08:26)
[2020-07-11] MEDS: FINASTERIDE 5 MG TABLET GT SCH (08:26)
[2020-07-11] MEDS: COD LIVER OIL/ZINC OXIDE OINT 113 GM TUBE TP SCH ×2 (08:26→20:42)
[2020-07-11] MEDS: DULOXETINE 20 MG CAPSULE.DR GT SCH (08:26)
[2020-07-11] MEDS: HYDROGEN PEROXIDE 3% 118 ML BOTTLE TP SCH ×2 (08:53→21:26)
[2020-07-11] MEDS: JEVITY 1.2 1000 ML LIQUID GT PRN (14:55)
[2020-07-11 19:53] VITALS: BP 123/63
[2020-07-11] MEDS: MULTIVIT, IRON, MIN NO. 8, FA TABLET GT SCH (20:42)
--- NOTE | 2020-07-11 20:55 | NUR ---
Afebrile,still on Zosyn 3.375 grams IVPB for fever, no adverse reactions noted. No signs of any respiratory distress, 02 sat is 99% , connected to vent, vent working properly. Gt feeding tolerating well, no N/V noted.Turned and repositioned, Kept clean and comfortable, will continue monitor.
--- NOTE | 2020-07-11 22:34 | NUR ---
Seen and examined by KATHI Hatch with No new orders.
[2020-07-12] MEDS: PIPERACILLIN SODIUM/TAZOBACTAM 3.375 G in IV DEXTROSE 5% 50 ML IV SCH ×4 (00:09→18:41)
[2020-07-12] MEDS: JEVITY 1.2 1000 ML LIQUID GT PRN ×2 (02:30→17:17)
[2020-07-12] MEDS: PANTOPRAZOLE ORAL SUSPENSION 40 MG SUSPDR.PKT GT SCH (06:01)
[2020-07-12 07:31] VITALS: BP 121/76
[2020-07-12] MEDS: HYDROGEN PEROXIDE 3% 118 ML BOTTLE TP SCH ×2 (08:22→21:28)
[2020-07-12] MEDS: FINASTERIDE 5 MG TABLET GT SCH (09:29)
[2020-07-12] MEDS: DULOXETINE 20 MG CAPSULE.DR GT SCH (09:29)
[2020-07-12] MEDS: COD LIVER OIL/ZINC OXIDE OINT 113 GM TUBE TP SCH ×2 (09:30→20:55)
[2020-07-12] MEDS: VITAMINS A AND D OINT TP SCH (09:30)
[2020-07-12] MEDS: NEOMY/BACITRA/POLYMYXIN B OINT UD PACKET TP SCH ×2 (09:30→20:55)
--- NOTE | 2020-07-12 13:34 | NUR ---
NEW ORDER CARRIED OUT FROM DR. APOORVA Hughes FOR LEFT INNER ANKLE ABRASION LOCAL TX.PICTURE
--- NOTE | 2020-07-12 18:22 | NUR ---
DR. KAMRAN Hughes PAGED TO NOTIFY RESULT OF SPUTUM C&S RESULTS.
[2020-07-12 20:17] VITALS: BP 120/59
[2020-07-12] MEDS: NEOMY/BACITRAC/POLYMI OINT 28.35 GM TUBE TP SCH (20:55)
[2020-07-12] MEDS: MULTIVIT, IRON, MIN NO. 8, FA TABLET GT SCH (20:55)
[2020-07-13] MEDS: PIPERACILLIN SODIUM/TAZOBACTAM 3.375 G in IV DEXTROSE 5% 50 ML IV SCH ×3 (00:09→12:00)
--- NOTE | 2020-07-13 03:08 | NUR ---
continue on zosyn 3.375gm iv for fever, no adverse reaction noted, heplock @ right wrist patent.
[2020-07-13 06:30] LABS: BASOPHILS % (AUTO) 0.4 % (0.0-2.0); EOSINOPHILS # (AUTO) 0.2 K/uL (0.0-0.7); EOSINOPHILS % (AUTO) 3.2 % (0.0-7.0); HEMATOCRIT 32.9 % (36.7-47.1); HEMOGLOBIN 10.9 g/dL (12.5-16.3); LYMPHOCYTES # (AUTO) 1.3 K/uL (20.0-40.0); MEAN CORPUSCULAR HEMOGLOBIN 29.4 uug (23.8-33.4); MEAN CORPUSCULAR HGB CONC 33 g/dL (32.5-36.3); MEAN CORPUSCULAR VOLUME 88.6 fL (73.0-96.2); MONOCYTES # (AUTO) 0.5 K/uL (2.0-10.0); MONOCYTES % (AUTO) 8.1 % (0.0-11.0); NEUTROPHILS # (AUTO) 3.8 K/uL (1.8-8.9); NEUTROPHILS % (AUTO) 65.3 % (38.5-71.5); PLATELET COUNT (AUTO) 210 K/uL (152-348); RED BLOOD CELL COUNT(AUTO) 3.72 MIL/uL (4.06-5.63); WHITE BLOOD COUNT (AUTO) 5.8 K/uL (3.6-10.2)
[2020-07-13 06:42] LABS: CREATININE 0.6 mg/dL (0.6-1.3); MAGNESIUM 1.8 mg/dL (1.8-2.4); PHOSPHOROUS 2.6 mg/dL (2.5-4.9); POTASSIUM 4.2 mmol/L (3.5-5.1)
[2020-07-13] MEDS: PANTOPRAZOLE ORAL SUSPENSION 40 MG SUSPDR.PKT GT SCH (06:52)
[2020-07-13] MEDS: JEVITY 1.2 1000 ML LIQUID GT PRN ×2 (06:52→18:34)
[2020-07-13] MEDS: HYDROGEN PEROXIDE 3% 118 ML BOTTLE TP SCH ×2 (07:14→21:20)
[2020-07-13 07:32] VITALS: BP 128/75
[2020-07-13] MEDS: COD LIVER OIL/ZINC OXIDE OINT 113 GM TUBE TP SCH ×2 (08:48→20:34)
[2020-07-13] MEDS: VITAMINS A AND D OINT TP SCH (08:48)
[2020-07-13] MEDS: NEOMY/BACITRA/POLYMYXIN B OINT UD PACKET TP SCH ×2 (08:48→20:34)
[2020-07-13] MEDS: NEOMY/BACITRAC/POLYMI OINT 28.35 GM TUBE TP SCH ×2 (08:48→20:34)
[2020-07-13] MEDS: DULOXETINE 20 MG CAPSULE.DR GT SCH (08:49)
[2020-07-13] MEDS: FINASTERIDE 5 MG TABLET GT SCH (08:50)
--- NOTE | 2020-07-13 15:33 | NUR ---
INTERDISCIPLINARY PLAN OF CARE CONFERENCE was held today. Patient's was not available to participate in the IDT meetings. Dr. Trujillo and the Interdisciplinary Team reviewed the current plan of care in detail. RN reported on patient's medical condition, recent treatments, and stated that patient continues to remain on a ventilator. See RN IDT conference notes. Dietary reported on patient's recent weight gain, and stated that dietary will continue to monitor and provide appropriate interventions, as needed. See all other disciplines IDT notes and physician's progress notes for additional details.
[2020-07-13] MEDS: levoFLOXacin 750MG/D5W 750 MG in PREMIXED 1 EACH IV SCH (18:20)
--- NOTE | 2020-07-13 19:00 | NUR ---
Continue on Ivatb,Zosyn 3.375 mg discontinue,and start on levaquin 750 mg iv daily,no adverse reaction noted,given for pneumonia,iv site intact,no s/s of infiltration noted.
--- NOTE | 2020-07-13 19:40 | NUR ---
Pt received on alvares vent with settings: AC mode RR 12, VT 550, +5 PEEP, 28% FiO2. All alarms on and audible. Trach is patent and secured. Suctioned PRN. Ambubag and spare trach at bedside. Will continue to monitor.
[2020-07-13 20:00] VITALS: BP 123/66
[2020-07-13] MEDS: MULTIVIT, IRON, MIN NO. 8, FA TABLET GT SCH (20:34)
[2020-07-13] MEDS: ACETAMINOPHEN 650 MG/20 ML UDC- SA PATIENTS-PAIN ONLY GT PRN (20:37)
[2020-07-14] MEDS: PANTOPRAZOLE ORAL SUSPENSION 40 MG SUSPDR.PKT GT SCH (06:45)
[2020-07-14] MEDS: HYDROGEN PEROXIDE 3% 118 ML BOTTLE TP SCH ×2 (07:20→21:00)
[2020-07-14 07:44] VITALS: BP 100/67
[2020-07-14] MEDS: FINASTERIDE 5 MG TABLET GT SCH (08:08)
[2020-07-14] MEDS: DULOXETINE 20 MG CAPSULE.DR GT SCH (08:08)
[2020-07-14] MEDS: COD LIVER OIL/ZINC OXIDE OINT 113 GM TUBE TP SCH ×2 (08:08→20:27)
[2020-07-14] MEDS: NEOMY/BACITRAC/POLYMI OINT 28.35 GM TUBE TP SCH ×2 (08:09→20:27)
[2020-07-14] MEDS: NEOMY/BACITRA/POLYMYXIN B OINT UD PACKET TP SCH ×2 (08:09→20:27)
[2020-07-14] MEDS: VITAMINS A AND D OINT TP SCH (08:09)
[2020-07-14] MEDS: levoFLOXacin 750MG/D5W 750 MG in PREMIXED 1 EACH IV SCH (17:13)
--- NOTE | 2020-07-14 17:27 | NUR ---
PT. WAS EXAMINED BY DR. CRAVEN ON ABDOMINAL AREA D/T AT PALPATION NOTED ABOVE BELLY BUTTON WITH A BULGY PROTRUDING SOFT TISSUE AND WITH NNO AT THIS TIME AND STATED THAT IS NOT A HERNIA.NO A/R TO LEVAQUIN IV ,NO DISTRESS.
[2020-07-14 20:00] VITALS: BP 135/92
[2020-07-14] MEDS: MULTIVIT, IRON, MIN NO. 8, FA TABLET GT SCH (20:27)
--- NOTE | 2020-07-14 22:00 | NUR ---
On Levaquin 750mg IV for pneumonia, no adverse reactions noted, IV site is intact. Afebrile, no signs of any distress noted, kept clean and comfortable.
[2020-07-14] MEDS: ACETAMINOPHEN 650 MG/20 ML UDC- SA PATIENTS-PAIN ONLY GT PRN (22:30)
[2020-07-15] MEDS: PANTOPRAZOLE ORAL SUSPENSION 40 MG SUSPDR.PKT GT SCH (06:56)
[2020-07-15 07:46] VITALS: BP 112/53
[2020-07-15] MEDS: COD LIVER OIL/ZINC OXIDE OINT 113 GM TUBE TP SCH ×2 (08:59→20:02)
[2020-07-15] MEDS: NEOMY/BACITRA/POLYMYXIN B OINT UD PACKET TP SCH ×2 (08:59→20:02)
[2020-07-15] MEDS: DULOXETINE 20 MG CAPSULE.DR GT SCH (08:59)
[2020-07-15] MEDS: VITAMINS A AND D OINT TP SCH (08:59)
[2020-07-15] MEDS: NEOMY/BACITRAC/POLYMI OINT 28.35 GM TUBE TP SCH ×2 (08:59→20:02)
[2020-07-15] MEDS: FINASTERIDE 5 MG TABLET GT SCH (08:59)
[2020-07-15] MEDS: HYDROGEN PEROXIDE 3% 118 ML BOTTLE TP SCH ×2 (09:44→21:06)
[2020-07-15] MEDS: levoFLOXacin 750MG/D5W 750 MG in PREMIXED 1 EACH IV SCH (18:41)
[2020-07-15 20:00] VITALS: BP 133/88
[2020-07-15] MEDS: MULTIVIT, IRON, MIN NO. 8, FA TABLET GT SCH (20:02)
[2020-07-15] MEDS: OLANZAPINE 2.5 MG TABLET GT PRN (20:03)
[2020-07-15] MEDS: POLYVINYL ALCOHOL OPHT DROPS 15 ML BOTTLE EACHEYE PRN (20:03)
--- NOTE | 2020-07-15 22:54 | NUR ---
Remains on Levaquin 750mg IV every 24 hours for pneumonia, no adverse reactions noted, RFA IV site is intact. Afebrile, no signs of any distress noted, 02 sat @ 100%, kept clean and comfortable.
[2020-07-16] MEDS: PANTOPRAZOLE ORAL SUSPENSION 40 MG SUSPDR.PKT GT SCH (06:24)
--- NOTE | 2020-07-16 06:47 | NUR ---
Temperature is 100.1 orally, rechecked rectally and is 99.6. still on Levaquin IV for Pneumonia, no respiratory distress noted, cooling measure applied, will continue monitor. Addendum: 07/16/20 at 0654 by KT PARRA RN Tylenol 650mg via gt given for comfort, HR:95, will continue monitor.
[2020-07-16] MEDS: ACETAMINOPHEN 650 MG/20 ML UDC- SA PATIENTS-PAIN ONLY GT PRN ×2 (06:57→11:28)
[2020-07-16 07:39] VITALS: BP 102/62
[2020-07-16] MEDS: COD LIVER OIL/ZINC OXIDE OINT 113 GM TUBE TP SCH ×2 (08:39→21:01)
[2020-07-16] MEDS: FINASTERIDE 5 MG TABLET GT SCH (08:39)
[2020-07-16] MEDS: DULOXETINE 20 MG CAPSULE.DR GT SCH (08:39)
[2020-07-16] MEDS: NEOMY/BACITRA/POLYMYXIN B OINT UD PACKET TP SCH ×2 (08:40→21:01)
[2020-07-16] MEDS: VITAMINS A AND D OINT TP SCH (08:41)
[2020-07-16] MEDS: NEOMY/BACITRAC/POLYMI OINT 28.35 GM TUBE TP SCH ×2 (08:41→21:02)
[2020-07-16] MEDS: HYDROGEN PEROXIDE 3% 118 ML BOTTLE TP SCH ×2 (08:59→21:16)
[2020-07-16] MEDS: levoFLOXacin 750MG/D5W 750 MG in PREMIXED 1 EACH IV SCH (17:01)
--- NOTE | 2020-07-16 19:45 | NUR ---
PT REMAIN ON CONTINUOUS VENT. TRACH CARE DONE. TRACH IN PLACED AND SECURED WITH TRACH TIE. BACK UP TRACH AND AMBU BAG AT BEDSIDE. BS RHONCHI. SUCTION LAVAGE PRN. VENT CHECKED. ALARMS WORKING WELL AND AUDIBLE. NO DISTRESS NOTED AT THIS TIME. WILL CONTINUE TO MONITOR.
[2020-07-16] MEDS: MULTIVIT, IRON, MIN NO. 8, FA TABLET GT SCH (21:01)
[2020-07-16 23:01] VITALS: BP 125/71
[2020-07-17] MEDS: ACETAMINOPHEN 650 MG/20 ML UDC- SA PATIENTS-FEVER ONLY GT PRN (02:30)
--- NOTE | 2020-07-17 04:11 | NUR ---
FOUND G-TUBE OUT, INSERTED NEW GTUBE WITHOUT DIFFICULTY, XR ABDOMEN (KUB ) DONE. CONFIRMED G-TUBE PLACEMENT, FEEDING RESTARTED.
[2020-07-17] MEDS: PANTOPRAZOLE ORAL SUSPENSION 40 MG SUSPDR.PKT GT SCH (06:34)
[2020-07-17] MEDS: HYDROGEN PEROXIDE 3% 118 ML BOTTLE TP SCH ×2 (07:10→21:43)
[2020-07-17 08:14] VITALS: BP 133/66
[2020-07-17] MEDS: NEOMY/BACITRA/POLYMYXIN B OINT UD PACKET TP SCH ×2 (08:15→20:28)
[2020-07-17] MEDS: FINASTERIDE 5 MG TABLET GT SCH (08:15)
[2020-07-17] MEDS: COD LIVER OIL/ZINC OXIDE OINT 113 GM TUBE TP SCH ×2 (08:15→20:28)
[2020-07-17] MEDS: DULOXETINE 20 MG CAPSULE.DR GT SCH (08:15)
[2020-07-17] MEDS: VITAMINS A AND D OINT TP SCH (08:19)
[2020-07-17] MEDS: NEOMY/BACITRAC/POLYMI OINT 28.35 GM TUBE TP SCH ×2 (08:19→20:28)
[2020-07-17] MEDS: JEVITY 1.2 1000 ML LIQUID GT PRN (10:14)
[2020-07-17] MEDS: levoFLOXacin 750MG/D5W 750 MG in PREMIXED 1 EACH IV SCH (18:00)
--- NOTE | 2020-07-17 18:00 | NUR ---
Continue on Levaquin ivatb for pneumonia ,no adverse reaction noted,HL intact ,no s/s of infiltration noted..
[2020-07-17] MEDS: MULTIVIT, IRON, MIN NO. 8, FA TABLET GT SCH (20:27)
[2020-07-17] MEDS: ACETAMINOPHEN 650 MG/20 ML UDC- SA PATIENTS-PAIN ONLY GT PRN (20:28)
[2020-07-17 23:07] VITALS: BP 112/71
[2020-07-18] MEDS: JEVITY 1.2 1000 ML LIQUID GT PRN (03:00)
[2020-07-18] MEDS: PANTOPRAZOLE ORAL SUSPENSION 40 MG SUSPDR.PKT GT SCH (06:12)
[2020-07-18] MEDS: HYDROGEN PEROXIDE 3% 118 ML BOTTLE TP SCH ×2 (07:35→20:42)
[2020-07-18 07:46] VITALS: BP 140/79
[2020-07-18] MEDS: NEOMY/BACITRAC/POLYMI OINT 28.35 GM TUBE TP SCH ×2 (08:15→20:52)
[2020-07-18] MEDS: FINASTERIDE 5 MG TABLET GT SCH (08:15)
[2020-07-18] MEDS: NEOMY/BACITRA/POLYMYXIN B OINT UD PACKET TP SCH ×2 (08:15→20:52)
[2020-07-18] MEDS: DULOXETINE 20 MG CAPSULE.DR GT SCH (08:15)
[2020-07-18] MEDS: COD LIVER OIL/ZINC OXIDE OINT 113 GM TUBE TP SCH ×2 (08:15→20:51)
[2020-07-18] MEDS: VITAMINS A AND D OINT TP SCH (08:15)
--- NOTE | 2020-07-18 11:42 | NUR ---
Continue on Levaquin 750mg IV every 24 hours for pneumonia, no adverse reactions noted, IV site is intact, no s/s of infiltration noted,pt is afebrile.
--- NOTE | 2020-07-18 16:15 | NUR ---
PATIENT ZOOMED WITH
--- NOTE | 2020-07-18 17:50 | NUR ---
PATIENT CONTINUES ON ZOYSN 3.375G IV Q6HRS X 10 DAYS FOR PNA. NO ASE NOTED. NO SOB NOTED. REMAINS AFEBRILE. TOLERATING ATB THERAPY WELL. ALL NEEDS ANTICIPATED AND RENDERED. KEPT DRY AND COMFORTABLE. WILL CONTINUE TO MONITOR. Addendum: 07/18/20 at 1757 by AJIT JACKSON LVN CLARIFICATION OF ABOVE NOTE. CONTINUES ON ZOYSN 3.375G IV DAILY FOR PNA. NO ASE NOTED. NO SOB NOTED. TOLREATING WELL
[2020-07-18] MEDS: levoFLOXacin 750MG/D5W 750 MG in PREMIXED 1 EACH IV SCH (18:04)
[2020-07-18] MEDS: MULTIVIT, IRON, MIN NO. 8, FA TABLET GT SCH (20:51)
[2020-07-18 23:18] VITALS: BP 117/54
[2020-07-19] MEDS: JEVITY 1.2 1000 ML LIQUID GT PRN (00:46)
[2020-07-19] MEDS: PANTOPRAZOLE ORAL SUSPENSION 40 MG SUSPDR.PKT GT SCH (05:24)
[2020-07-19 05:45] LABS: ABG BASE EXCESS 2.1 mmol/L; ABG HCO3 27.1 mmol/L; ABG PCO2 43.6 mmHg (35.0-45.0); ABG PH 7.411 (7.350-7.450); ABG PO2 231.6 mmHg (75.0-100.0); ABG SITE LEFT RADIAL; ABG TOTAL HEMOGLOBIN 11.3 G/dL (13.5-18.0); COHb 0.3 % (0.5-1.5); MetHb 0.2 % (0.0-1.5); O2Hb 99.3 % (94.0-97.0); VENT MODE VENT - A/C; VT, ABG 550 mL
[2020-07-19 07:05] LABS: BASOPHILS % (AUTO) 0.2 % (0.0-2.0); EOSINOPHILS # (AUTO) 0.2 K/uL (0.0-0.7); EOSINOPHILS % (AUTO) 4.3 % (0.0-7.0); HEMATOCRIT 30.5 % (36.7-47.1); HEMOGLOBIN 10.1 g/dL (12.5-16.3); LYMPHOCYTES # (AUTO) 1.2 K/uL (20.0-40.0); LYMPHOCYTES % (AUTO) 24.7 % (20.5-51.5); MEAN CORPUSCULAR HEMOGLOBIN 29.3 uug (23.8-33.4); MEAN CORPUSCULAR HGB CONC 33 g/dL (32.5-36.3); MEAN CORPUSCULAR VOLUME 88.2 fL (73.0-96.2); MONOCYTES # (AUTO) 0.4 K/uL (2.0-10.0); MONOCYTES % (AUTO) 8.9 % (0.0-11.0); NEUTROPHILS # (AUTO) 3.1 K/uL (1.8-8.9); NEUTROPHILS % (AUTO) 61.9 % (38.5-71.5); PLATELET COUNT (AUTO) 209 K/uL (152-348); RED BLOOD CELL COUNT(AUTO) 3.46 MIL/uL (4.06-5.63); WHITE BLOOD COUNT (AUTO) 5.1 K/uL (3.6-10.2)
[2020-07-19 07:06] LABS: CREATININE 0.9 mg/dL (0.6-1.3); POTASSIUM 4.2 mmol/L (3.5-5.1)
[2020-07-19 07:27] VITALS: BP 100/59
[2020-07-19] MEDS: HYDROGEN PEROXIDE 3% 118 ML BOTTLE TP SCH ×2 (07:51→21:20)
[2020-07-19] MEDS: VITAMINS A AND D OINT TP SCH (08:45)
[2020-07-19] MEDS: COD LIVER OIL/ZINC OXIDE OINT 113 GM TUBE TP SCH ×2 (08:45→20:57)
[2020-07-19] MEDS: DULOXETINE 20 MG CAPSULE.DR GT SCH (08:45)
[2020-07-19] MEDS: NEOMY/BACITRA/POLYMYXIN B OINT UD PACKET TP SCH ×2 (08:45→20:58)
[2020-07-19] MEDS: NEOMY/BACITRAC/POLYMI OINT 28.35 GM TUBE TP SCH (08:45)
[2020-07-19] MEDS: FINASTERIDE 5 MG TABLET GT SCH (08:45)
[2020-07-19 20:15] VITALS: BP 123/52
[2020-07-19] MEDS: MULTIVIT, IRON, MIN NO. 8, FA TABLET GT SCH (20:57)
[2020-07-20] MEDS: JEVITY 1.2 1000 ML LIQUID GT PRN (01:21)
[2020-07-20] MEDS: PANTOPRAZOLE ORAL SUSPENSION 40 MG SUSPDR.PKT GT SCH (05:46)
[2020-07-20 07:28] VITALS: BP 133/69
[2020-07-20] MEDS: HYDROGEN PEROXIDE 3% 118 ML BOTTLE TP SCH ×2 (08:38→21:52)
[2020-07-20] MEDS: FINASTERIDE 5 MG TABLET GT SCH (08:38)
[2020-07-20] MEDS: VITAMINS A AND D OINT TP SCH (08:38)
[2020-07-20] MEDS: COD LIVER OIL/ZINC OXIDE OINT 113 GM TUBE TP SCH ×2 (08:38→21:04)
[2020-07-20] MEDS: NEOMY/BACITRA/POLYMYXIN B OINT UD PACKET TP SCH ×2 (08:38→21:04)
[2020-07-20] MEDS: OLANZAPINE 2.5 MG TABLET GT PRN (08:38)
[2020-07-20] MEDS: DULOXETINE 20 MG CAPSULE.DR GT SCH (08:38)
[2020-07-20 20:15] VITALS: BP 128/65
[2020-07-20] MEDS: MULTIVIT, IRON, MIN NO. 8, FA TABLET GT SCH (21:04)
[2020-07-21] MEDS: JEVITY 1.2 1000 ML LIQUID GT PRN (04:13)
[2020-07-21] MEDS: PANTOPRAZOLE ORAL SUSPENSION 40 MG SUSPDR.PKT GT SCH (05:47)
[2020-07-21 07:23] VITALS: BP 120/67
[2020-07-21] MEDS: DULOXETINE 20 MG CAPSULE.DR GT SCH (08:37)
[2020-07-21] MEDS: FINASTERIDE 5 MG TABLET GT SCH (08:38)
[2020-07-21] MEDS: COD LIVER OIL/ZINC OXIDE OINT 113 GM TUBE TP SCH ×2 (08:38→21:11)
[2020-07-21] MEDS: VITAMINS A AND D OINT TP SCH (09:00)
[2020-07-21] MEDS: NEOMY/BACITRA/POLYMYXIN B OINT UD PACKET TP SCH ×2 (09:00→21:11)
[2020-07-21] MEDS: HYDROGEN PEROXIDE 3% 118 ML BOTTLE TP SCH ×2 (09:12→21:04)
[2020-07-21 20:09] VITALS: BP 138/62
[2020-07-21] MEDS: MULTIVIT, IRON, MIN NO. 8, FA TABLET GT SCH (21:10)
[2020-07-22] MEDS: JEVITY 1.2 1000 ML LIQUID GT PRN ×2 (05:00→17:31)
[2020-07-22] MEDS: PANTOPRAZOLE ORAL SUSPENSION 40 MG SUSPDR.PKT GT SCH (05:04)
[2020-07-22 06:48] LABS: BASOPHILS % (AUTO) 0.4 % (0.0-2.0); EOSINOPHILS # (AUTO) 0.3 K/uL (0.0-0.7); EOSINOPHILS % (AUTO) 5.4 % (0.0-7.0); HEMATOCRIT 33.5 % (36.7-47.1); HEMOGLOBIN 11.1 g/dL (12.5-16.3); LYMPHOCYTES # (AUTO) 1.6 K/uL (20.0-40.0); LYMPHOCYTES % (AUTO) 25.5 % (20.5-51.5); MEAN CORPUSCULAR HEMOGLOBIN 29.1 uug (23.8-33.4); MEAN CORPUSCULAR HGB CONC 33 g/dL (32.5-36.3); MEAN CORPUSCULAR VOLUME 88.2 fL (73.0-96.2); MONOCYTES # (AUTO) 0.5 K/uL (2.0-10.0); MONOCYTES % (AUTO) 8.9 % (0.0-11.0); NEUTROPHILS # (AUTO) 3.6 K/uL (1.8-8.9); NEUTROPHILS % (AUTO) 59.8 % (38.5-71.5); PLATELET COUNT (AUTO) 247 K/uL (152-348); WHITE BLOOD COUNT (AUTO) 6.1 K/uL (3.6-10.2)
[2020-07-22 06:54] LABS: CREATININE 0.6 mg/dL (0.6-1.3); MAGNESIUM 2.1 mg/dL (1.8-2.4); PHOSPHOROUS 3.5 mg/dL (2.5-4.9); POTASSIUM 4.6 mmol/L (3.5-5.1)
[2020-07-22] MEDS: DULOXETINE 20 MG CAPSULE.DR GT SCH (08:02)
[2020-07-22] MEDS: FINASTERIDE 5 MG TABLET GT SCH (08:02)
[2020-07-22] MEDS: VITAMINS A AND D OINT TP SCH (08:03)
[2020-07-22] MEDS: COD LIVER OIL/ZINC OXIDE OINT 113 GM TUBE TP SCH ×2 (08:03→21:56)
[2020-07-22] MEDS: NEOMY/BACITRA/POLYMYXIN B OINT UD PACKET TP SCH ×2 (08:03→21:56)
[2020-07-22 08:13] VITALS: BP 123/61
[2020-07-22] MEDS: HYDROGEN PEROXIDE 3% 118 ML BOTTLE TP SCH ×2 (09:10→21:47)
[2020-07-22 20:26] VITALS: BP 122/85
[2020-07-22] MEDS: MULTIVIT, IRON, MIN NO. 8, FA TABLET GT SCH (21:56)
[2020-07-23] MEDS: PANTOPRAZOLE ORAL SUSPENSION 40 MG SUSPDR.PKT GT SCH (06:17)
[2020-07-23 07:48] VITALS: BP 135/77
[2020-07-23] MEDS: NEOMY/BACITRA/POLYMYXIN B OINT UD PACKET TP SCH ×2 (08:01→21:05)
[2020-07-23] MEDS: COD LIVER OIL/ZINC OXIDE OINT 113 GM TUBE TP SCH ×2 (08:01→21:05)
[2020-07-23] MEDS: DULOXETINE 20 MG CAPSULE.DR GT SCH (08:01)
[2020-07-23] MEDS: VITAMINS A AND D OINT TP SCH (08:01)
[2020-07-23] MEDS: FINASTERIDE 5 MG TABLET GT SCH (08:01)
[2020-07-23] MEDS: HYDROGEN PEROXIDE 3% 118 ML BOTTLE TP SCH ×2 (09:12→21:05)
--- NOTE | 2020-07-23 10:00 | NUR ---
SEEN BY DR. APOORVA Hughes AND WITH NNO.
[2020-07-23] MEDS: JEVITY 1.2 1000 ML LIQUID GT PRN (10:23)
[2020-07-23 20:23] VITALS: BP 132/78
[2020-07-23] MEDS: MULTIVIT, IRON, MIN NO. 8, FA TABLET GT SCH (21:04)
[2020-07-24] MEDS: PANTOPRAZOLE ORAL SUSPENSION 40 MG SUSPDR.PKT GT SCH (05:14)
[2020-07-24] MEDS: HYDROGEN PEROXIDE 3% 118 ML BOTTLE TP SCH ×2 (07:20→21:03)
[2020-07-24 07:39] VITALS: BP 121/67
[2020-07-24] MEDS: FINASTERIDE 5 MG TABLET GT SCH (08:26)
[2020-07-24] MEDS: COD LIVER OIL/ZINC OXIDE OINT 113 GM TUBE TP SCH ×2 (08:26→20:30)
[2020-07-24] MEDS: VITAMINS A AND D OINT TP SCH (08:26)
[2020-07-24] MEDS: NEOMY/BACITRA/POLYMYXIN B OINT UD PACKET TP SCH ×2 (08:26→20:30)
[2020-07-24] MEDS: DULOXETINE 20 MG CAPSULE.DR GT SCH (08:26)
--- NOTE | 2020-07-24 19:50 | NUR ---
PT RECEIVED ON CONTINUOUS VENT. BS RHONCMAKENZIE, TRACH CARE DONE. TRACH IN PLACED AND SECURED WITH TRACH TIE. BACK UP TRACH AND AMBU BAG AT BEDSIDE. SUCTION MODERATE AMOUNT THICK YELLOW SECRETIONS. VENT CHECKED AND RESET ALARMS. ALARMS WORKING WELL AND AUDIBLE. NO DISTRESS NOTED AT THIS TIME. WILL CONTINUE TO MONITOR.
[2020-07-24 20:05] VITALS: BP 126/67
[2020-07-24] MEDS: MULTIVIT, IRON, MIN NO. 8, FA TABLET GT SCH (20:30)
[2020-07-25] MEDS: PANTOPRAZOLE ORAL SUSPENSION 40 MG SUSPDR.PKT GT SCH (05:36)
[2020-07-25 07:35] VITALS: BP 111/66
[2020-07-25] MEDS: HYDROGEN PEROXIDE 3% 118 ML BOTTLE TP SCH ×2 (07:43→20:34)
[2020-07-25] MEDS: NEOMY/BACITRA/POLYMYXIN B OINT UD PACKET TP SCH ×2 (08:13→20:31)
[2020-07-25] MEDS: DULOXETINE 20 MG CAPSULE.DR GT SCH (08:13)
[2020-07-25] MEDS: FINASTERIDE 5 MG TABLET GT SCH (08:13)
[2020-07-25] MEDS: VITAMINS A AND D OINT TP SCH (08:13)
[2020-07-25] MEDS: COD LIVER OIL/ZINC OXIDE OINT 113 GM TUBE TP SCH ×2 (08:13→20:31)
[2020-07-25] MEDS: JEVITY 1.2 1000 ML LIQUID GT PRN ×2 (11:57→23:20)
[2020-07-25 20:11] VITALS: BP 115/52
[2020-07-25] MEDS: MULTIVIT, IRON, MIN NO. 8, FA TABLET GT SCH (20:31)
[2020-07-26] MEDS: PANTOPRAZOLE ORAL SUSPENSION 40 MG SUSPDR.PKT GT SCH (05:12)
[2020-07-26] MEDS: HYDROGEN PEROXIDE 3% 118 ML BOTTLE TP SCH ×2 (07:21→21:11)
[2020-07-26 07:52] VITALS: BP 117/78
[2020-07-26] MEDS: VITAMINS A AND D OINT TP SCH (08:44)
[2020-07-26] MEDS: NEOMY/BACITRA/POLYMYXIN B OINT UD PACKET TP SCH ×2 (08:44→20:09)
[2020-07-26] MEDS: COD LIVER OIL/ZINC OXIDE OINT 113 GM TUBE TP SCH ×2 (08:44→20:09)
[2020-07-26] MEDS: FINASTERIDE 5 MG TABLET GT SCH (08:44)
[2020-07-26] MEDS: DULOXETINE 20 MG CAPSULE.DR GT SCH (08:44)
--- NOTE | 2020-07-26 14:39 | NUR ---
PT. WAS SEEN AND EXAMINED BY DR APOORVA Barclay AND AWARE OF HYPERGRANULATION ON GASTROSTOMY SITE AND BOTH WITH NEW ORDERS CARRIED OUT.
--- NOTE | 2020-07-26 14:46 | NUR ---
MESSAGE LEFT TO ALEXANDER AGUIAR N.P. (SX) AND MESSAGE LEFT FOR CONSULTATION WITH DR. APOORVA Hsu (SX)TO EVALUATE GASTROSTOMY SITE HYPERGRANULATION.
[2020-07-26] MEDS: MULTIVIT, IRON, MIN NO. 8, FA TABLET GT SCH (20:09)
[2020-07-26 20:25] VITALS: BP 123/69
[2020-07-27] MEDS: PANTOPRAZOLE ORAL SUSPENSION 40 MG SUSPDR.PKT GT SCH (05:44)
[2020-07-27] MEDS: JEVITY 1.2 1000 ML LIQUID GT PRN (05:44)
--- NOTE | 2020-07-27 07:40 | NUR ---
DR.KASHANI Hughes WAS PAGED D/T GT OUT AT THIS TIME TO F/U RESULT OF ABNORMAL CT SCAN OF ABDOMEN AND D/T GT WAS FOUND OUT WITH INFLATED BALLOON AND NOTED WHEN PLACING A NEW ONE THAT PT. TRYING TO PUSH IT OUT.
[2020-07-27 07:47] VITALS: BP 128/86
[2020-07-27] MEDS: FINASTERIDE 5 MG TABLET GT SCH (08:38)
[2020-07-27] MEDS: DULOXETINE 20 MG CAPSULE.DR GT SCH (08:38)
[2020-07-27] MEDS: VITAMINS A AND D OINT TP SCH (08:39)
[2020-07-27] MEDS: COD LIVER OIL/ZINC OXIDE OINT 113 GM TUBE TP SCH ×2 (08:39→20:41)
[2020-07-27] MEDS: NEOMY/BACITRA/POLYMYXIN B OINT UD PACKET TP SCH ×2 (08:39→20:41)
[2020-07-27] MEDS: HYDROGEN PEROXIDE 3% 118 ML BOTTLE TP SCH ×2 (08:58→20:53)
--- NOTE | 2020-07-27 08:58 | NUR ---
DR. KAMRAN Hughes CALLED BACK AND AWARE OF ABNORMAL CT SCAN RESULT AND THAT THE GT WAS OUT WITH BALLOON AND THAT A NEW GT WAS PLACED BUT PT. TRIES TO PUSHED OUT AND NOTED THER GT OPENING BIG ENOUGH FOR GT TO COME OUT IF PT. COUGHS HARD, AND WITH NEW ORDERS CARRIED OUT AFTER PT'S WAS NOTIFIED AT THIS TIME AND IN AGREEMENT.DR. APOORVA Hughes DOES NOT WANT THE GT TO BE USED TILL GI COMES AND SEE PT. AND MEDS. AND GT FEEDING TO BE ON HOLD AND IV HYDRATION TO BE STARTED .
--- NOTE | 2020-07-27 09:00 | NUR ---
0725 PT noted with GTube dislogged during endorsement. Assisted with night nurse in replacing GTube. Charge nurse aware. Waiting on MD's orders. Will continue to monitor and observe PT. New orders prescribed by MD. PT on IV hydration. No signs of vomiting or restless noted. Will continue to monitor.
--- NOTE | 2020-07-27 09:51 | NUR ---
PAGED RE: ABNORMAL LABS.
--- NOTE | 2020-07-27 09:52 | NUR ---
WRONG ACCOUNT ENTRI DR. GERBER WAS NOT CALLED.
[2020-07-27] MEDS: IV D5/ 0.9% NACL 1,000 ML IV PRN (10:10)
[2020-07-27 14:28] LABS: BILIRUBIN,TOTAL 0.5 mg/dL (0.2-1.0); CREATININE 0.6 mg/dL (0.6-1.3)
[2020-07-27 16:01] LABS: BASOPHILS % (AUTO) 0.5 % (0.0-2.0); EOSINOPHILS # (AUTO) 0.1 K/uL (0.0-0.7); EOSINOPHILS % (AUTO) 1.6 % (0.0-7.0); HEMOGLOBIN 11.5 g/dL (12.5-16.3); LYMPHOCYTES # (AUTO) 1.5 K/uL (20.0-40.0); MEAN CORPUSCULAR HEMOGLOBIN 29.3 uug (23.8-33.4); MEAN CORPUSCULAR HGB CONC 34 g/dL (32.5-36.3); MEAN CORPUSCULAR VOLUME 87.1 fL (73.0-96.2); MONOCYTES # (AUTO) 0.6 K/uL (2.0-10.0); MONOCYTES % (AUTO) 8.6 % (0.0-11.0); NEUTROPHILS # (AUTO) 4.3 K/uL (1.8-8.9); NEUTROPHILS % (AUTO) 66.3 % (38.5-71.5); PLATELET COUNT (AUTO) 233 K/uL (152-348); RED BLOOD CELL COUNT(AUTO) 3.91 MIL/uL (4.06-5.63); WHITE BLOOD COUNT (AUTO) 6.5 K/uL (3.6-10.2)
--- NOTE | 2020-07-27 16:26 | NUR ---
NEW ORDER CARRIED OUT FOR COVID19 FROM DR. ANDREW AND PT'S AWARE AND IN AGREEMENT.
[2020-07-27 20:03] VITALS: BP 111/53
[2020-07-27] MEDS: MULTIVIT, IRON, MIN NO. 8, FA TABLET GT SCH ×2 (20:41→21:00)
[2020-07-28] MEDS: PANTOPRAZOLE ORAL SUSPENSION 40 MG SUSPDR.PKT GT SCH ×2 (05:11→06:00)
[2020-07-28 07:27] VITALS: BP 130/51
[2020-07-28] MEDS: HYDROGEN PEROXIDE 3% 118 ML BOTTLE TP SCH ×2 (08:31→20:44)
[2020-07-28] MEDS: VITAMINS A AND D OINT TP SCH (09:00)
[2020-07-28] MEDS: COD LIVER OIL/ZINC OXIDE OINT 113 GM TUBE TP SCH ×2 (09:00→20:29)
[2020-07-28] MEDS: DULOXETINE 20 MG CAPSULE.DR GT SCH (09:00)
[2020-07-28] MEDS: NEOMY/BACITRA/POLYMYXIN B OINT UD PACKET TP SCH ×2 (09:00→20:29)
[2020-07-28] MEDS: FINASTERIDE 5 MG TABLET GT SCH (09:00)
--- NOTE | 2020-07-28 17:00 | NUR ---
Pt was seen and examined by Dr Smith,spoke to dr Soo NEWTON regarding the GT site,Dr Vann call with new orders noted and carried out,to start on Vancomycin and Zosyn for Gt site infection ,slight red and hard to touch.Consent obtained from the for EGD with peg placement tomorrow.
[2020-07-28] MEDS: IV D5/ 0.9% NACL 1,000 ML IV PRN (18:57)
[2020-07-28] MEDS: VANCOMYCIN IV 1,000 MG in IV DEXTROSE 5% 250 ML IV SCH (20:00)
[2020-07-28] MEDS: MULTIVIT, IRON, MIN NO. 8, FA TABLET GT SCH (20:29)
[2020-07-28 20:56] VITALS: BP 128/74
[2020-07-28] MEDS: PIPERACILLIN SODIUM/TAZOBACTAM 3.375 G in IV DEXTROSE 5% 50 ML IV SCH (21:11)
--- NOTE | 2020-07-28 23:00 | NUR ---
Patient on NPO, on IV hydration of D5NS @75ml/hr infusing well on right wrist, started on Zosyn and Vancomycin IV for Gt site infection, old gt site covered with dry dressing, no bleeding from old gt site noted, afebrile, kept clean and comfortable.
[2020-07-29] MEDS: PIPERACILLIN SODIUM/TAZOBACTAM 3.375 G in IV DEXTROSE 5% 50 ML IV SCH ×4 (03:06→21:00)
[2020-07-29] MEDS: PANTOPRAZOLE ORAL SUSPENSION 40 MG SUSPDR.PKT GT SCH (05:54)
[2020-07-29 07:46] VITALS: BP 124/62
[2020-07-29] MEDS: VANCOMYCIN IV 1,000 MG in IV DEXTROSE 5% 250 ML IV SCH ×2 (08:00→20:02)
[2020-07-29] MEDS: DULOXETINE 20 MG CAPSULE.DR GT SCH (09:00)
[2020-07-29] MEDS: FINASTERIDE 5 MG TABLET GT SCH (09:00)
[2020-07-29] MEDS: COD LIVER OIL/ZINC OXIDE OINT 113 GM TUBE TP SCH ×2 (09:23→20:29)
[2020-07-29] MEDS: VITAMINS A AND D OINT TP SCH (09:23)
[2020-07-29] MEDS: HYDROGEN PEROXIDE 3% 118 ML BOTTLE TP SCH ×2 (09:31→20:56)
[2020-07-29 20:17] VITALS: BP 144/78
[2020-07-29] MEDS: MULTIVIT, IRON, MIN NO. 8, FA TABLET GT SCH (20:29)
--- NOTE | 2020-07-29 23:00 | NUR ---
Still on D5NS @ 75ml/Hr, infusing well, on Vancomycin and Zosyn IV for GT site infection, no adverse reactions noted. Afebrile, on NPO at this time until tomorrow, a new peg was inserted by GI Doctor earlier in the day today, no bleeding noted from old gt site.no signs of pain or discomfort, kept clean and comfortable.
[2020-07-30] MEDS: IV D5/ 0.9% NACL 1,000 ML IV PRN (02:30)
[2020-07-30] MEDS: PIPERACILLIN SODIUM/TAZOBACTAM 3.375 G in IV DEXTROSE 5% 50 ML IV SCH ×4 (03:54→20:49)
[2020-07-30] MEDS: PANTOPRAZOLE ORAL SUSPENSION 40 MG SUSPDR.PKT GT SCH (05:13)
[2020-07-30] MEDS: JEVITY 1.2 1000 ML LIQUID GT PRN ×2 (06:13→18:52)
[2020-07-30 06:35] LABS: CREATININE 0.7 mg/dL (0.6-1.3); POTASSIUM 2.9 mmol/L (3.5-5.1); VANCOMYCIN,TROUGH 20.6 ug/mL (12.0-20.0)
[2020-07-30 07:37] VITALS: BP 116/58
[2020-07-30] MEDS: VITAMINS A AND D OINT TP SCH (08:31)
[2020-07-30] MEDS: FINASTERIDE 5 MG TABLET GT SCH (08:31)
[2020-07-30] MEDS: DULOXETINE 20 MG CAPSULE.DR GT SCH (08:31)
[2020-07-30] MEDS: COD LIVER OIL/ZINC OXIDE OINT 113 GM TUBE TP SCH ×2 (08:31→20:18)
[2020-07-30] MEDS: HYDROGEN PEROXIDE 3% 118 ML BOTTLE TP SCH ×2 (08:53→21:20)
[2020-07-30] MEDS: VANCOMYCIN IV 1,000 MG in IV DEXTROSE 5% 250 ML IV SCH (14:46)
[2020-07-30] MEDS: MULTIVIT, IRON, MIN NO. 8, FA TABLET GT SCH (20:17)
[2020-07-30 20:47] VITALS: BP 129/54
--- NOTE | 2020-07-30 21:20 | NUR ---
Patient received in stable respiratory condition on HT50 vent with current md ordered vent settings. All alarms on and audible. Ambubag and spare trach at bedside. Airway is patent and secured. Suction PRN. No SOB noted. Will continue to monitor.
[2020-07-31] MEDS: PIPERACILLIN SODIUM/TAZOBACTAM 3.375 G in IV DEXTROSE 5% 50 ML IV SCH ×4 (02:52→20:58)
[2020-07-31] MEDS: PANTOPRAZOLE ORAL SUSPENSION 40 MG SUSPDR.PKT GT SCH (05:05)
[2020-07-31 07:53] VITALS: BP 111/59
[2020-07-31] MEDS: FINASTERIDE 5 MG TABLET GT SCH (08:19)
[2020-07-31] MEDS: VANCOMYCIN IV 1,000 MG in IV DEXTROSE 5% 250 ML IV SCH (08:19)
[2020-07-31] MEDS: DULOXETINE 20 MG CAPSULE.DR GT SCH (08:19)
[2020-07-31] MEDS: VITAMINS A AND D OINT TP SCH (09:04)
[2020-07-31] MEDS: COD LIVER OIL/ZINC OXIDE OINT 113 GM TUBE TP SCH ×2 (09:04→20:02)
[2020-07-31] MEDS: HYDROGEN PEROXIDE 3% 118 ML BOTTLE TP SCH ×2 (09:10→21:31)
[2020-07-31] MEDS: JEVITY 1.2 1000 ML LIQUID GT PRN (16:57)
--- NOTE | 2020-07-31 18:00 | NUR ---
Continue on Ivatb for GT site infection,no adverse reaction noted,gt feeding tolerated well.
[2020-07-31] MEDS: MULTIVIT, IRON, MIN NO. 8, FA TABLET GT SCH (20:02)
[2020-07-31 20:52] VITALS: BP 131/71
[2020-08-01] MEDS: VANCOMYCIN IV 1,000 MG in IV DEXTROSE 5% 250 ML IV SCH ×2 (01:40→20:41)
[2020-08-01] MEDS: PIPERACILLIN SODIUM/TAZOBACTAM 3.375 G in IV DEXTROSE 5% 50 ML IV SCH ×4 (03:32→21:49)
[2020-08-01] MEDS: PANTOPRAZOLE ORAL SUSPENSION 40 MG SUSPDR.PKT GT SCH (06:17)
[2020-08-01 07:06] LABS: CREATININE 0.7 mg/dL (0.6-1.3); POTASSIUM 3.8 mmol/L (3.5-5.1)
[2020-08-01] MEDS: HYDROGEN PEROXIDE 3% 118 ML BOTTLE TP SCH ×2 (07:28→21:26)
[2020-08-01 07:46] VITALS: BP 120/49
[2020-08-01] MEDS: JEVITY 1.2 1000 ML LIQUID GT PRN ×2 (08:52→23:44)
[2020-08-01] MEDS: VITAMINS A AND D OINT TP SCH (08:52)
[2020-08-01] MEDS: DULOXETINE 20 MG CAPSULE.DR GT SCH (08:52)
[2020-08-01] MEDS: COD LIVER OIL/ZINC OXIDE OINT 113 GM TUBE TP SCH ×2 (08:52→20:48)
[2020-08-01] MEDS: FINASTERIDE 5 MG TABLET GT SCH (08:52)
--- NOTE | 2020-08-01 19:05 | NUR ---
Afebrile,Continue on Ivatb for GT site infection,no adverse reaction noted,HL on the R wrist intact,gt feeding tolerated well.
[2020-08-01 20:30] VITALS: BP 122/55
[2020-08-01] MEDS: MULTIVIT, IRON, MIN NO. 8, FA TABLET GT SCH (20:48)
[2020-08-02] MEDS: PIPERACILLIN SODIUM/TAZOBACTAM 3.375 G in IV DEXTROSE 5% 50 ML IV SCH ×3 (02:12→15:00)
[2020-08-02] MEDS: PANTOPRAZOLE ORAL SUSPENSION 40 MG SUSPDR.PKT GT SCH (06:09)
[2020-08-02 07:10] VITALS: BP 99/50
[2020-08-02] MEDS: DULOXETINE 20 MG CAPSULE.DR GT SCH (08:36)
[2020-08-02] MEDS: COD LIVER OIL/ZINC OXIDE OINT 113 GM TUBE TP SCH ×2 (08:36→20:23)
[2020-08-02] MEDS: VITAMINS A AND D OINT TP SCH (08:36)
[2020-08-02] MEDS: FINASTERIDE 5 MG TABLET GT SCH (08:36)
[2020-08-02] MEDS: HYDROGEN PEROXIDE 3% 118 ML BOTTLE TP SCH ×2 (09:00→21:11)
[2020-08-02 20:05] VITALS: BP 144/68
[2020-08-02] MEDS: MULTIVIT, IRON, MIN NO. 8, FA TABLET GT SCH (20:23)
[2020-08-03] MEDS: PANTOPRAZOLE ORAL SUSPENSION 40 MG SUSPDR.PKT GT SCH (06:09)
[2020-08-03 07:25] VITALS: BP 133/76
[2020-08-03] MEDS: DULOXETINE 20 MG CAPSULE.DR GT SCH (08:47)
[2020-08-03] MEDS: VITAMINS A AND D OINT TP SCH (08:48)
[2020-08-03] MEDS: COD LIVER OIL/ZINC OXIDE OINT 113 GM TUBE TP SCH ×2 (08:48→20:42)
[2020-08-03] MEDS: FINASTERIDE 5 MG TABLET GT SCH (08:48)
[2020-08-03] MEDS: HYDROGEN PEROXIDE 3% 118 ML BOTTLE TP SCH ×2 (08:56→21:00)
[2020-08-03] MEDS: JEVITY 1.2 1000 ML LIQUID GT PRN (11:36)
[2020-08-03 20:00] VITALS: BP 134/71
[2020-08-03] MEDS: MULTIVIT, IRON, MIN NO. 8, FA TABLET GT SCH (20:42)
[2020-08-04] MEDS: JEVITY 1.2 1000 ML LIQUID GT PRN (00:57)
[2020-08-04] MEDS: PANTOPRAZOLE ORAL SUSPENSION 40 MG SUSPDR.PKT GT SCH (05:07)
[2020-08-04] MEDS: DULOXETINE 20 MG CAPSULE.DR GT SCH (08:43)
[2020-08-04] MEDS: COD LIVER OIL/ZINC OXIDE OINT 113 GM TUBE TP SCH ×2 (08:44→20:45)
[2020-08-04] MEDS: VITAMINS A AND D OINT TP SCH (08:44)
[2020-08-04] MEDS: FINASTERIDE 5 MG TABLET GT SCH (08:44)
[2020-08-04] MEDS: HYDROGEN PEROXIDE 3% 118 ML BOTTLE TP SCH ×2 (09:00→21:32)
[2020-08-04 10:08] VITALS: BP 134/75
--- NOTE | 2020-08-04 16:00 | NUR ---
Call pt's brother to get consent for flu shot,he request to call pt's tomorrow and get the consent from her.
[2020-08-04 20:00] VITALS: BP 143/78
[2020-08-04] MEDS: MULTIVIT, IRON, MIN NO. 8, FA TABLET GT SCH (20:45)
[2020-08-05] MEDS: PANTOPRAZOLE ORAL SUSPENSION 40 MG SUSPDR.PKT GT SCH (06:48)
[2020-08-05] MEDS: JEVITY 1.2 1000 ML LIQUID GT PRN (06:48)
[2020-08-05 07:24] VITALS: BP 120/64
[2020-08-05] MEDS: VITAMINS A AND D OINT TP SCH (08:57)
[2020-08-05] MEDS: FINASTERIDE 5 MG TABLET GT SCH (08:57)
[2020-08-05] MEDS: DULOXETINE 20 MG CAPSULE.DR GT SCH (08:57)
[2020-08-05] MEDS: COD LIVER OIL/ZINC OXIDE OINT 113 GM TUBE TP SCH ×2 (08:57→21:00)
[2020-08-05] MEDS: HYDROGEN PEROXIDE 3% 118 ML BOTTLE TP SCH ×2 (09:00→20:58)
--- NOTE | 2020-08-05 12:30 | NUR ---
Pt's called and made a statement that she agrees with the flu shot that is offered to be given to her , Erinn STRATTON verified and witness the consent.
--- NOTE | 2020-08-05 19:05 | NUR ---
NEW ORDER FROM CLAYTON Barclay OBTAINED FOR FLU VACCINE.
[2020-08-05 20:00] VITALS: BP 143/82
[2020-08-05] MEDS: MULTIVIT, IRON, MIN NO. 8, FA TABLET GT SCH (21:00)
[2020-08-06] MEDS: PANTOPRAZOLE ORAL SUSPENSION 40 MG SUSPDR.PKT GT SCH (05:22)
[2020-08-06 07:36] VITALS: BP 115/54
[2020-08-06] MEDS: DULOXETINE 20 MG CAPSULE.DR GT SCH (08:45)
[2020-08-06] MEDS: FINASTERIDE 5 MG TABLET GT SCH (08:46)
[2020-08-06] MEDS: VITAMINS A AND D OINT TP SCH (08:46)
[2020-08-06] MEDS: COD LIVER OIL/ZINC OXIDE OINT 113 GM TUBE TP SCH ×2 (08:46→20:32)
[2020-08-06] MEDS: HYDROGEN PEROXIDE 3% 118 ML BOTTLE TP SCH ×2 (09:13→21:00)
[2020-08-06] MEDS: JEVITY 1.2 1000 ML LIQUID GT PRN ×2 (09:14→18:04)
--- NOTE | 2020-08-06 10:00 | NUR ---
SEEN BY ALEXANDER WEST AND WITH NNO.
--- NOTE | 2020-08-06 18:41 | NUR ---
NO A/R TO FLU VACCINE ,AFEBRILE.
[2020-08-06 20:00] VITALS: BP 148/58
[2020-08-06] MEDS: MULTIVIT, IRON, MIN NO. 8, FA TABLET GT SCH (20:32)
--- NOTE | 2020-08-06 22:54 | NUR ---
Afebrile, no adverse reactions noted from the flu vaccine.
[2020-08-07] MEDS: PANTOPRAZOLE ORAL SUSPENSION 40 MG SUSPDR.PKT GT SCH (05:05)
[2020-08-07 07:42] VITALS: BP 135/74
[2020-08-07] MEDS: HYDROGEN PEROXIDE 3% 118 ML BOTTLE TP SCH ×2 (08:43→21:00)
[2020-08-07] MEDS: DULOXETINE 20 MG CAPSULE.DR GT SCH (09:16)
[2020-08-07] MEDS: VITAMINS A AND D OINT TP SCH (09:18)
[2020-08-07] MEDS: COD LIVER OIL/ZINC OXIDE OINT 113 GM TUBE TP SCH ×2 (09:18→20:28)
[2020-08-07] MEDS: FINASTERIDE 5 MG TABLET GT SCH (09:18)
--- NOTE | 2020-08-07 15:00 | NUR ---
Saline lock removed.
--- NOTE | 2020-08-07 17:58 | NUR ---
NO A/R TO FLU VACCINE,AFEBRILE.
[2020-08-07 20:00] VITALS: BP 104/71
[2020-08-07] MEDS: MULTIVIT, IRON, MIN NO. 8, FA TABLET GT SCH (20:28)
[2020-08-07] MEDS: JEVITY 1.2 1000 ML LIQUID GT PRN (21:48)
--- NOTE | 2020-08-07 21:49 | NUR ---
Afebrile, no adverse reactions from flu vaccine, no redness on injection site.
[2020-08-08] MEDS: PANTOPRAZOLE ORAL SUSPENSION 40 MG SUSPDR.PKT GT SCH (05:22)
[2020-08-08 07:47] VITALS: BP 124/81
[2020-08-08] MEDS: COD LIVER OIL/ZINC OXIDE OINT 113 GM TUBE TP SCH ×2 (08:09→20:24)
[2020-08-08] MEDS: VITAMINS A AND D OINT TP SCH (08:09)
[2020-08-08] MEDS: FINASTERIDE 5 MG TABLET GT SCH (08:09)
[2020-08-08] MEDS: DULOXETINE 20 MG CAPSULE.DR GT SCH (08:09)
[2020-08-08] MEDS: HYDROGEN PEROXIDE 3% 118 ML BOTTLE TP SCH ×2 (09:08→21:15)
--- NOTE | 2020-08-08 13:48 | NUR ---
NO A/R TO FLU VACCINE ,AFEBRILE.
[2020-08-08] MEDS: JEVITY 1.2 1000 ML LIQUID GT PRN (17:14)
[2020-08-08] MEDS: MULTIVIT, IRON, MIN NO. 8, FA TABLET GT SCH (20:24)
[2020-08-08 20:43] VITALS: BP 130/67
[2020-08-09] MEDS: JEVITY 1.2 1000 ML LIQUID GT PRN ×2 (04:44→22:43)
[2020-08-09] MEDS: PANTOPRAZOLE ORAL SUSPENSION 40 MG SUSPDR.PKT GT SCH (05:19)
--- NOTE | 2020-08-09 07:02 | NUR ---
No A/R to flu vaccine, afebrile.
[2020-08-09 07:24] VITALS: BP 123/60
[2020-08-09] MEDS: DULOXETINE 20 MG CAPSULE.DR GT SCH (08:18)
[2020-08-09] MEDS: FINASTERIDE 5 MG TABLET GT SCH (08:18)
[2020-08-09] MEDS: VITAMINS A AND D OINT TP SCH (08:18)
[2020-08-09] MEDS: COD LIVER OIL/ZINC OXIDE OINT 113 GM TUBE TP SCH ×2 (08:18→21:07)
[2020-08-09] MEDS: HYDROGEN PEROXIDE 3% 118 ML BOTTLE TP SCH ×2 (09:12→21:43)
--- NOTE | 2020-08-09 15:02 | NUR ---
SEEN BY CLAYTON Barclay AND WITH NNO.
[2020-08-09 20:44] VITALS: BP 126/62
[2020-08-09] MEDS: MULTIVIT, IRON, MIN NO. 8, FA TABLET GT SCH (21:07)
[2020-08-10] MEDS: PANTOPRAZOLE ORAL SUSPENSION 40 MG SUSPDR.PKT GT SCH (06:11)
[2020-08-10 07:20] VITALS: BP 120/57
[2020-08-10] MEDS: FINASTERIDE 5 MG TABLET GT SCH (08:02)
[2020-08-10] MEDS: DULOXETINE 20 MG CAPSULE.DR GT SCH (08:02)
[2020-08-10] MEDS: COD LIVER OIL/ZINC OXIDE OINT 113 GM TUBE TP SCH ×2 (08:03→21:19)
[2020-08-10] MEDS: VITAMINS A AND D OINT TP SCH (08:03)
[2020-08-10] MEDS: HYDROGEN PEROXIDE 3% 118 ML BOTTLE TP SCH ×2 (09:24→21:21)
[2020-08-10] MEDS: JEVITY 1.2 1000 ML LIQUID GT PRN (14:53)
--- NOTE | 2020-08-10 16:17 | NUR ---
INTERDISCIPLINARY PLAN OF CARE CONFERENCE was held today. Patient's was not available to participate in the meeting. Dr. Trujillo and the Interdisciplinary Team reviewed the current plan of care in detail. RN reported on patient's medical condition, and recent treatments. See RN IDT conference notes. No major changes in medical condition were reported by nursing or by the other disciplines. See all other disciplines IDT notes and physician's progress notes for additional details.
[2020-08-10 20:12] VITALS: BP 112/69
[2020-08-10] MEDS: MULTIVIT, IRON, MIN NO. 8, FA TABLET GT SCH (21:19)
[2020-08-10] MEDS: ONDANSETRON HCL 4 MG TABLET GT PRN (21:21)
[2020-08-11] MEDS: JEVITY 1.2 1000 ML LIQUID GT PRN ×2 (03:00→17:26)
[2020-08-11] MEDS: PANTOPRAZOLE ORAL SUSPENSION 40 MG SUSPDR.PKT GT SCH (05:22)
[2020-08-11] MEDS: HYDROGEN PEROXIDE 3% 118 ML BOTTLE TP SCH ×2 (07:07→21:15)
[2020-08-11 07:54] VITALS: BP 130/53
[2020-08-11] MEDS: DULOXETINE 20 MG CAPSULE.DR GT SCH (09:10)
[2020-08-11] MEDS: COD LIVER OIL/ZINC OXIDE OINT 113 GM TUBE TP SCH ×2 (09:10→20:13)
[2020-08-11] MEDS: FINASTERIDE 5 MG TABLET GT SCH (09:10)
[2020-08-11] MEDS: VITAMINS A AND D OINT TP SCH (09:10)
--- NOTE | 2020-08-11 16:30 | NUR ---
Seen and examined by Dr Smith with new orders noted.
[2020-08-11 20:11] VITALS: BP 120/61
[2020-08-11] MEDS: MULTIVIT, IRON, MIN NO. 8, FA TABLET GT SCH (20:13)
[2020-08-12] MEDS: JEVITY 1.2 1000 ML LIQUID GT PRN ×2 (06:00→19:00)
[2020-08-12] MEDS: PANTOPRAZOLE ORAL SUSPENSION 40 MG SUSPDR.PKT GT SCH (06:00)
[2020-08-12 07:05] LABS: BASOPHILS % (AUTO) 0.6 % (0.0-2.0); EOSINOPHILS # (AUTO) 0.3 K/uL (0.0-0.7); EOSINOPHILS % (AUTO) 5.2 % (0.0-7.0); HEMATOCRIT 33.6 % (36.7-47.1); HEMOGLOBIN 11.1 g/dL (12.5-16.3); LYMPHOCYTES % (AUTO) 34.7 % (20.5-51.5); MEAN CORPUSCULAR HEMOGLOBIN 29.3 uug (23.8-33.4); MEAN CORPUSCULAR HGB CONC 33 g/dL (32.5-36.3); MEAN CORPUSCULAR VOLUME 88.7 fL (73.0-96.2); MONOCYTES # (AUTO) 0.5 K/uL (2.0-10.0); MONOCYTES % (AUTO) 9.2 % (0.0-11.0); NEUTROPHILS # (AUTO) 2.8 K/uL (1.8-8.9); NEUTROPHILS % (AUTO) 50.3 % (38.5-71.5); PLATELET COUNT (AUTO) 179 K/uL (152-348); RED BLOOD CELL COUNT(AUTO) 3.79 MIL/uL (4.06-5.63); WHITE BLOOD COUNT (AUTO) 5.7 K/uL (3.6-10.2)
[2020-08-12 07:10] LABS: CREATININE 0.7 mg/dL (0.6-1.3); MAGNESIUM 2.3 mg/dL (1.8-2.4); PHOSPHOROUS 3.4 mg/dL (2.5-4.9); POTASSIUM 4.4 mmol/L (3.5-5.1)
[2020-08-12 07:22] VITALS: BP 125/77
[2020-08-12] MEDS: HYDROGEN PEROXIDE 3% 118 ML BOTTLE TP SCH ×2 (09:15→21:25)
[2020-08-12] MEDS: VITAMINS A AND D OINT TP SCH (09:31)
[2020-08-12] MEDS: COD LIVER OIL/ZINC OXIDE OINT 113 GM TUBE TP SCH ×2 (09:31→20:43)
[2020-08-12] MEDS: FINASTERIDE 5 MG TABLET GT SCH (09:31)
[2020-08-12] MEDS: DULOXETINE 20 MG CAPSULE.DR GT SCH (09:31)
[2020-08-12 20:00] VITALS: BP 129/71
[2020-08-12] MEDS: MULTIVIT, IRON, MIN NO. 8, FA TABLET GT SCH (20:43)
--- NOTE | 2020-08-13 01:16 | NUR ---
Patient is afebrile, No respiratory distress noted, 02 sat is 99%, will continue monitor.
[2020-08-13] MEDS: PANTOPRAZOLE ORAL SUSPENSION 40 MG SUSPDR.PKT GT SCH (06:17)
[2020-08-13] MEDS: HYDROGEN PEROXIDE 3% 118 ML BOTTLE TP SCH ×2 (07:23→21:15)
[2020-08-13 07:43] VITALS: BP 122/64
--- NOTE | 2020-08-13 08:25 | NUR ---
Calculated Pt's RSBI per MD orders. RSBI = 50. Average VT was 400 and Respiratory Rate was 20. Pt placed on CPAP+5, PSV 10 for 30 minute trial, per MD orders. Will continue to monitor. QUINN Altamirano notified. Bag/valve/mask and back-up trach at bedside.
[2020-08-13] MEDS: FINASTERIDE 5 MG TABLET GT SCH (08:35)
[2020-08-13] MEDS: VITAMINS A AND D OINT TP SCH (08:35)
[2020-08-13] MEDS: DULOXETINE 20 MG CAPSULE.DR GT SCH (08:35)
[2020-08-13] MEDS: COD LIVER OIL/ZINC OXIDE OINT 113 GM TUBE TP SCH ×2 (08:35→21:18)
--- NOTE | 2020-08-13 09:00 | NUR ---
ABG drawn and result given to QUINN Altamirano. Pt placed back on previous settings of A/C-12, VT-550, PEEP+5, FIO2-28% (2LPM Bleed-in). Pt tolerating vent settings well. QUINN Altamirano notified. Will continue to monitor. Vent alarm parameters checked, on and audible.
[2020-08-13 09:07] LABS: ABG BASE EXCESS -0.9 mmol/L; ABG HCO3 24.6 mmol/L; ABG PCO2 44.4 mmHg (35.0-45.0); ABG PH 7.362 (7.350-7.450); ABG PO2 172.1 mmHg (75.0-100.0); ABG SITE LEFT RADIAL; ABG TOTAL HEMOGLOBIN 11.7 G/dL (13.5-18.0); COHb 0.3 % (0.5-1.5); MetHb 0.2 % (0.0-1.5); O2Hb 98.8 % (94.0-97.0); VENT MODE VENT - CPAP
[2020-08-13] MEDS: JEVITY 1.2 1000 ML LIQUID GT PRN (11:58)
[2020-08-13 19:47] VITALS: BP 128/76
[2020-08-13] MEDS: MULTIVIT, IRON, MIN NO. 8, FA TABLET GT SCH (21:18)
[2020-08-14] MEDS: JEVITY 1.2 1000 ML LIQUID GT PRN ×2 (02:16→21:45)
[2020-08-14] MEDS: PANTOPRAZOLE ORAL SUSPENSION 40 MG SUSPDR.PKT GT SCH (06:18)
[2020-08-14 07:26] VITALS: BP 119/60
[2020-08-14] MEDS: HYDROGEN PEROXIDE 3% 118 ML BOTTLE TP SCH ×2 (09:00→21:03)
[2020-08-14] MEDS: VITAMINS A AND D OINT TP SCH (09:01)
[2020-08-14] MEDS: COD LIVER OIL/ZINC OXIDE OINT 113 GM TUBE TP SCH ×2 (09:01→20:39)
[2020-08-14] MEDS: DULOXETINE 20 MG CAPSULE.DR GT SCH (09:01)
[2020-08-14] MEDS: FINASTERIDE 5 MG TABLET GT SCH (09:01)
--- NOTE | 2020-08-14 18:30 | NUR ---
Gt site hard to touch ,kub done to check GT placement,Gt in place per results,enteral feeding restarted.
[2020-08-14 20:05] VITALS: BP 127/66
[2020-08-14] MEDS: MULTIVIT, IRON, MIN NO. 8, FA TABLET GT SCH (20:39)
[2020-08-15] MEDS: PANTOPRAZOLE ORAL SUSPENSION 40 MG SUSPDR.PKT GT SCH (05:36)
[2020-08-15 07:26] VITALS: BP 120/60
[2020-08-15] MEDS: HYDROGEN PEROXIDE 3% 118 ML BOTTLE TP SCH ×2 (07:38→21:28)
[2020-08-15] MEDS: DULOXETINE 20 MG CAPSULE.DR GT SCH (08:41)
[2020-08-15] MEDS: VITAMINS A AND D OINT TP SCH (08:41)
[2020-08-15] MEDS: COD LIVER OIL/ZINC OXIDE OINT 113 GM TUBE TP SCH ×2 (08:41→20:49)
[2020-08-15] MEDS: FINASTERIDE 5 MG TABLET GT SCH (08:41)
[2020-08-15] MEDS: JEVITY 1.2 1000 ML LIQUID GT PRN (11:46)
--- NOTE | 2020-08-15 19:54 | NUR ---
Received pt on HT-50 ventilator with the following settings of AC-12, Vt-550, PEEP+5, FIO2-2LPM bleed-in, trached with Shiley#8 DCT trach, which is in the place and secure. No respiratory distress noted. Airway care done, pt responded to physical stimuli. HME changed. Resus. bag and back up trach at bedside. Vent and alarms checked and reset.
[2020-08-15] MEDS: MULTIVIT, IRON, MIN NO. 8, FA TABLET GT SCH (20:49)
[2020-08-15 20:52] VITALS: BP 122/62
[2020-08-16] MEDS: JEVITY 1.2 1000 ML LIQUID GT PRN (02:10)
[2020-08-16] MEDS: PANTOPRAZOLE ORAL SUSPENSION 40 MG SUSPDR.PKT GT SCH (05:44)
[2020-08-16 07:39] VITALS: BP 139/63
[2020-08-16] MEDS: FINASTERIDE 5 MG TABLET GT SCH (08:33)
[2020-08-16] MEDS: COD LIVER OIL/ZINC OXIDE OINT 113 GM TUBE TP SCH ×2 (08:33→20:43)
[2020-08-16] MEDS: VITAMINS A AND D OINT TP SCH (08:33)
[2020-08-16] MEDS: DULOXETINE 20 MG CAPSULE.DR GT SCH (08:33)
[2020-08-16] MEDS: HYDROGEN PEROXIDE 3% 118 ML BOTTLE TP SCH ×2 (09:13→21:21)
[2020-08-16 20:05] VITALS: BP 138/67
[2020-08-16] MEDS: MULTIVIT, IRON, MIN NO. 8, FA TABLET GT SCH (20:43)
[2020-08-17] MEDS: JEVITY 1.2 1000 ML LIQUID GT PRN ×2 (03:44→17:56)
[2020-08-17] MEDS: PANTOPRAZOLE ORAL SUSPENSION 40 MG SUSPDR.PKT GT SCH (06:22)
[2020-08-17 07:20] VITALS: BP 130/61
[2020-08-17] MEDS: HYDROGEN PEROXIDE 3% 118 ML BOTTLE TP SCH ×2 (07:24→21:00)
[2020-08-17] MEDS: DULOXETINE 20 MG CAPSULE.DR GT SCH (08:19)
[2020-08-17] MEDS: COD LIVER OIL/ZINC OXIDE OINT 113 GM TUBE TP SCH ×2 (08:19→20:37)
[2020-08-17] MEDS: VITAMINS A AND D OINT TP SCH (08:19)
[2020-08-17] MEDS: FINASTERIDE 5 MG TABLET GT SCH (08:19)
[2020-08-17 20:07] VITALS: BP 126/70
[2020-08-17] MEDS: MULTIVIT, IRON, MIN NO. 8, FA TABLET GT SCH (20:37)
[2020-08-18] MEDS: PANTOPRAZOLE ORAL SUSPENSION 40 MG SUSPDR.PKT GT SCH (05:54)
[2020-08-18 07:30] VITALS: BP 131/63
[2020-08-18] MEDS: DULOXETINE 20 MG CAPSULE.DR GT SCH (08:35)
[2020-08-18] MEDS: FINASTERIDE 5 MG TABLET GT SCH (08:36)
[2020-08-18] MEDS: COD LIVER OIL/ZINC OXIDE OINT 113 GM TUBE TP SCH ×2 (08:36→20:13)
[2020-08-18] MEDS: VITAMINS A AND D OINT TP SCH (09:00)
[2020-08-18] MEDS: HYDROGEN PEROXIDE 3% 118 ML BOTTLE TP SCH ×2 (09:25→20:13)
[2020-08-18] MEDS: MULTIVIT, IRON, MIN NO. 8, FA TABLET GT SCH (20:13)
[2020-08-18 20:55] VITALS: BP 118/67
[2020-08-18] MEDS: JEVITY 1.2 1000 ML LIQUID GT PRN (22:34)
[2020-08-19] MEDS: PANTOPRAZOLE ORAL SUSPENSION 40 MG SUSPDR.PKT GT SCH (05:32)
[2020-08-19 08:08] VITALS: BP 108/57
[2020-08-19] MEDS: HYDROGEN PEROXIDE 3% 118 ML BOTTLE TP SCH ×2 (08:29→20:58)
[2020-08-19] MEDS: FINASTERIDE 5 MG TABLET GT SCH (08:44)
[2020-08-19] MEDS: DULOXETINE 20 MG CAPSULE.DR GT SCH (08:44)
[2020-08-19] MEDS: VITAMINS A AND D OINT TP SCH (08:45)
[2020-08-19] MEDS: COD LIVER OIL/ZINC OXIDE OINT 113 GM TUBE TP SCH ×2 (08:45→20:32)
[2020-08-19] MEDS: JEVITY 1.2 1000 ML LIQUID GT PRN (17:56)
--- NOTE | 2020-08-19 18:50 | NUR ---
MESSAGE LEFT FOR PT'S CLARICE RE: NEGATIVE FOR COVID19 LATEST TEST RESULT.
[2020-08-19] MEDS: MULTIVIT, IRON, MIN NO. 8, FA TABLET GT SCH (20:32)
[2020-08-19 23:18] VITALS: BP 112/54
[2020-08-20] MEDS: JEVITY 1.2 1000 ML LIQUID GT PRN (05:13)
[2020-08-20] MEDS: PANTOPRAZOLE ORAL SUSPENSION 40 MG SUSPDR.PKT GT SCH (05:13)
[2020-08-20 07:54] VITALS: BP 147/70
[2020-08-20] MEDS: DULOXETINE 20 MG CAPSULE.DR GT SCH (08:27)
[2020-08-20] MEDS: FINASTERIDE 5 MG TABLET GT SCH (08:27)
[2020-08-20] MEDS: VITAMINS A AND D OINT TP SCH (08:27)
[2020-08-20] MEDS: COD LIVER OIL/ZINC OXIDE OINT 113 GM TUBE TP SCH ×2 (08:27→21:12)
[2020-08-20] MEDS: HYDROGEN PEROXIDE 3% 118 ML BOTTLE TP SCH ×2 (09:43→21:17)
[2020-08-20 20:22] VITALS: BP 118/43
[2020-08-20] MEDS: NEOMY/BACITRA/POLYMYXIN B OINT UD PACKET TP SCH (21:12)
[2020-08-20] MEDS: MULTIVIT, IRON, MIN NO. 8, FA TABLET GT SCH (21:12)
[2020-08-21] MEDS: PANTOPRAZOLE ORAL SUSPENSION 40 MG SUSPDR.PKT GT SCH (05:49)
[2020-08-21 07:22] VITALS: BP 125/68
[2020-08-21] MEDS: DULOXETINE 20 MG CAPSULE.DR GT SCH (08:35)
[2020-08-21] MEDS: COD LIVER OIL/ZINC OXIDE OINT 113 GM TUBE TP SCH ×2 (08:35→21:03)
[2020-08-21] MEDS: FINASTERIDE 5 MG TABLET GT SCH (08:35)
[2020-08-21] MEDS: VITAMINS A AND D OINT TP SCH (08:36)
[2020-08-21] MEDS: NEOMY/BACITRA/POLYMYXIN B OINT UD PACKET TP SCH ×2 (08:36→21:03)
[2020-08-21] MEDS: HYDROGEN PEROXIDE 3% 118 ML BOTTLE TP SCH ×2 (09:14→21:15)
[2020-08-21] MEDS: JEVITY 1.2 1000 ML LIQUID GT PRN (10:38)
[2020-08-21 20:28] VITALS: BP 133/52
[2020-08-21] MEDS: MULTIVIT, IRON, MIN NO. 8, FA TABLET GT SCH (21:02)
[2020-08-22] MEDS: JEVITY 1.2 1000 ML LIQUID GT PRN ×2 (00:34→17:31)
[2020-08-22] MEDS: PANTOPRAZOLE ORAL SUSPENSION 40 MG SUSPDR.PKT GT SCH (05:10)
[2020-08-22 07:39] VITALS: BP 142/70
[2020-08-22] MEDS: DULOXETINE 20 MG CAPSULE.DR GT SCH (08:00)
[2020-08-22] MEDS: FINASTERIDE 5 MG TABLET GT SCH (08:00)
[2020-08-22] MEDS: COD LIVER OIL/ZINC OXIDE OINT 113 GM TUBE TP SCH ×2 (08:00→21:00)
[2020-08-22] MEDS: VITAMINS A AND D OINT TP SCH (08:01)
[2020-08-22] MEDS: NEOMY/BACITRA/POLYMYXIN B OINT UD PACKET TP SCH ×2 (08:01→21:00)
[2020-08-22] MEDS: HYDROGEN PEROXIDE 3% 118 ML BOTTLE TP SCH ×2 (09:07→20:56)
--- NOTE | 2020-08-22 16:25 | NUR ---
NEW ORDER CARRIED OUT FROM DR. KAMRAN Hughes FOR COVID19 TEST ( [facility] REQUIREMENT).
[2020-08-22 20:43] VITALS: BP 115/61
[2020-08-22] MEDS: MULTIVIT, IRON, MIN NO. 8, FA TABLET GT SCH (21:00)
[2020-08-23] MEDS: PANTOPRAZOLE ORAL SUSPENSION 40 MG SUSPDR.PKT GT SCH (06:09)
[2020-08-23] MEDS: JEVITY 1.2 1000 ML LIQUID GT PRN ×2 (07:11→22:55)
[2020-08-23 07:59] VITALS: BP 120/66
[2020-08-23] MEDS: COD LIVER OIL/ZINC OXIDE OINT 113 GM TUBE TP SCH ×2 (08:12→20:44)
[2020-08-23] MEDS: FINASTERIDE 5 MG TABLET GT SCH (08:12)
[2020-08-23] MEDS: DULOXETINE 20 MG CAPSULE.DR GT SCH (08:12)
[2020-08-23] MEDS: NEOMY/BACITRA/POLYMYXIN B OINT UD PACKET TP SCH ×2 (08:13→20:44)
[2020-08-23] MEDS: VITAMINS A AND D OINT TP SCH (08:13)
[2020-08-23] MEDS: HYDROGEN PEROXIDE 3% 118 ML BOTTLE TP SCH ×2 (09:58→21:00)
--- NOTE | 2020-08-23 16:05 | NUR ---
SEEN BY CLAYTON Hughes AND WITH NNO.
--- NOTE | 2020-08-23 19:10 | NUR ---
PT'S AWARE OF NEGATIVE COVID 19 TEST.
[2020-08-23 20:25] VITALS: BP 127/64
[2020-08-23] MEDS: MULTIVIT, IRON, MIN NO. 8, FA TABLET GT SCH (20:44)
[2020-08-24] MEDS: PANTOPRAZOLE ORAL SUSPENSION 40 MG SUSPDR.PKT GT SCH (05:51)
[2020-08-24 07:40] VITALS: BP 121/57
[2020-08-24] MEDS: HYDROGEN PEROXIDE 3% 118 ML BOTTLE TP SCH ×2 (07:40→21:11)
[2020-08-24] MEDS: FINASTERIDE 5 MG TABLET GT SCH (08:36)
[2020-08-24] MEDS: DULOXETINE 20 MG CAPSULE.DR GT SCH (08:36)
[2020-08-24] MEDS: NEOMY/BACITRA/POLYMYXIN B OINT UD PACKET TP SCH ×2 (08:37→21:30)
[2020-08-24] MEDS: COD LIVER OIL/ZINC OXIDE OINT 113 GM TUBE TP SCH ×2 (08:37→21:30)
[2020-08-24] MEDS: VITAMINS A AND D OINT TP SCH (08:38)
[2020-08-24] MEDS: ACETAMINOPHEN 650 MG/20 ML UDC- SA PATIENTS-PAIN ONLY GT PRN (08:50)
[2020-08-24] MEDS: JEVITY 1.2 1000 ML LIQUID GT PRN (11:49)
[2020-08-24 20:17] VITALS: BP 132/70
[2020-08-24] MEDS: MULTIVIT, IRON, MIN NO. 8, FA TABLET GT SCH (21:30)
[2020-08-25] MEDS: PANTOPRAZOLE ORAL SUSPENSION 40 MG SUSPDR.PKT GT SCH (05:09)
--- NOTE | 2020-08-25 07:30 | NUR ---
PATIENT VOMITED AT THIS TIME, SMALL AMOUNT, MILKY COLOR, NO RESIDUAL NOTED, V/S WNL. ZOFRAN WILL BE GIVEN ORDERED.TUBE FEEDING HELD AT THIS TIME.
[2020-08-25] MEDS: ONDANSETRON HCL 4 MG TABLET GT PRN ×2 (07:39→15:49)
[2020-08-25 07:55] VITALS: BP 141/71
[2020-08-25] MEDS: VITAMINS A AND D OINT TP SCH (08:12)
[2020-08-25] MEDS: COD LIVER OIL/ZINC OXIDE OINT 113 GM TUBE TP SCH ×2 (08:12→20:54)
[2020-08-25] MEDS: NEOMY/BACITRA/POLYMYXIN B OINT UD PACKET TP SCH ×2 (08:12→20:55)
[2020-08-25] MEDS: FINASTERIDE 5 MG TABLET GT SCH (08:12)
[2020-08-25] MEDS: DULOXETINE 20 MG CAPSULE.DR GT SCH (08:12)
[2020-08-25] MEDS: HYDROGEN PEROXIDE 3% 118 ML BOTTLE TP SCH ×2 (09:00→21:15)
--- NOTE | 2020-08-25 09:30 | NUR ---
PATIENT IN BED, NO S/S OF N/V NOTED , TUBE FEEDING RESTARTED AT THIS TIME.
--- NOTE | 2020-08-25 14:10 | NUR ---
PATIENT WITH TEMPERATURE OF 101.9,RN NOTIFIED, COOLING MEASURES PROVIDED AND WILL CONTINUE MONITORING.
--- NOTE | 2020-08-25 15:32 | NUR ---
seen and examined by Dr Vann ,pt vomited this morning,recommended to decrease the feeding,new orders carried out.
--- NOTE | 2020-08-25 16:10 | NUR ---
Ashwin Dean Funeral Director/Embalmer/Owner notified regarding elevated temp,with new orders noted and carried out,seen and examined by Dr Trujillo with new orders.for sputum Culture and procalcitonin in Am.
[2020-08-25] MEDS: ACETAMINOPHEN 650 MG/20 ML UDC- SA PATIENTS-FEVER ONLY GT PRN (17:40)
--- NOTE | 2020-08-25 17:40 | NUR ---
BLOOD CULTURES DONE ,TYLENOL GIVEN ORDERED BY . FOR FEVER , TEMPERATURE 101. AT THIS TIME. WILL CONTINUE MONITORING.
--- NOTE | 2020-08-25 19:10 | NUR ---
New orders from Ashwin Memorandum Statement Clerk to continue Zosyn per pharmacy,dc Merren,and to start Vancomycin per pharmacy x 5 days per protocol per pharmacy.
[2020-08-25 20:00] VITALS: BP 106/58
[2020-08-25] MEDS: PIPERACILLIN SODIUM/TAZOBACTAM 3.375 G in IV DEXTROSE 5% 50 ML IV SCH (20:00)
[2020-08-25] MEDS: MULTIVIT, IRON, MIN NO. 8, FA TABLET GT SCH (20:54)
--- NOTE | 2020-08-25 22:00 | NUR ---
Started on Zosyn IV for fever, no adverse reactions noted. Afebrile, temperature is 98.7, IV site on left hand is intact and patent, gt feeding tolerating well, no nausea or vomiting noted, HOB elevated, kept clean and comfortable. Addendum: 08/26/20 at 0044 by KT PARRA RN [facility] pharmacist called and stated that vancomycin is not covered.
[2020-08-25] MEDS: JEVITY 1.2 1000 ML LIQUID GT PRN (22:39)
[2020-08-26] MEDS: PIPERACILLIN SODIUM/TAZOBACTAM 3.375 G in IV DEXTROSE 5% 50 ML IV SCH ×4 (02:00→20:00)
[2020-08-26 05:21] LABS: BASOPHILS % (AUTO) 0.3 % (0.0-2.0); EOSINOPHILS # (AUTO) 0.1 K/uL (0.0-0.7); HEMATOCRIT 32.3 % (36.7-47.1); HEMOGLOBIN 10.8 g/dL (12.5-16.3); LYMPHOCYTES # (AUTO) 1.5 K/uL (20.0-40.0); LYMPHOCYTES % (AUTO) 15.1 % (20.5-51.5); MEAN CORPUSCULAR HEMOGLOBIN 29.4 uug (23.8-33.4); MEAN CORPUSCULAR HGB CONC 33 g/dL (32.5-36.3); MONOCYTES # (AUTO) 0.5 K/uL (2.0-10.0); MONOCYTES % (AUTO) 5.1 % (0.0-11.0); NEUTROPHILS # (AUTO) 7.7 K/uL (1.8-8.9); NEUTROPHILS % (AUTO) 78.5 % (38.5-71.5); PLATELET COUNT (AUTO) 192 K/uL (152-348); RED BLOOD CELL COUNT(AUTO) 3.67 MIL/uL (4.06-5.63); WHITE BLOOD COUNT (AUTO) 9.8 K/uL (3.6-10.2)
[2020-08-26] MEDS: PANTOPRAZOLE ORAL SUSPENSION 40 MG SUSPDR.PKT GT SCH (06:17)
[2020-08-26] MEDS: HYDROGEN PEROXIDE 3% 118 ML BOTTLE TP SCH ×2 (07:38→21:08)
[2020-08-26 07:50] VITALS: BP 119/75
[2020-08-26] MEDS: DULOXETINE 20 MG CAPSULE.DR GT SCH (08:24)
[2020-08-26] MEDS: FINASTERIDE 5 MG TABLET GT SCH (08:24)
[2020-08-26] MEDS: VITAMINS A AND D OINT TP SCH (08:24)
[2020-08-26] MEDS: NEOMY/BACITRA/POLYMYXIN B OINT UD PACKET TP SCH ×2 (08:24→20:50)
[2020-08-26] MEDS: COD LIVER OIL/ZINC OXIDE OINT 113 GM TUBE TP SCH ×2 (08:24→20:50)
[2020-08-26 09:09] LABS: CREATININE 0.9 mg/dL (0.6-1.3); POTASSIUM 3.6 mmol/L (3.5-5.1)
[2020-08-26] MEDS: VANCOMYCIN IV 1,000 MG in IV DEXTROSE 5% 250 ML IV SCH ×2 (11:40→23:08)
[2020-08-26] MEDS: JEVITY 1.2 1000 ML LIQUID GT PRN (14:27)
[2020-08-26 20:00] VITALS: BP 106/56
[2020-08-26] MEDS: MULTIVIT, IRON, MIN NO. 8, FA TABLET GT SCH (20:50)
[2020-08-26 21:46] LABS: *BILIRUBIN,URIN NEGATIVE (NEGATIVE); *BLOOD, URINE 2+ (NEGATIVE); *CLARITY,URINE CLEAR (CLEAR); *COLOR,URINE YELLOW (YELLOW); *KETONES,URINE NEGATIVE (NEGATIVE); *UROBILINOGEN,URINE 0.2 E.U./dl (NORMAL); LEUKOCYTE ESTERASE ,URINE NEGATIVE (NEGATIVE); NITRITE, URINE NEGATIVE (NEGATIVE); UGLUCOSE NEGATIVE (NEGATIVE)
[2020-08-27 01:46] LABS: BACTERIA,URINE MODERATE /HPF (NONE SEEN); RBC,URINE 80-100 /HPF (0-3); WBC,URINE 0-3 /HPF (0-3)
[2020-08-27 01:47] LABS: SQUAMOUS EPITHELIAL CELL,UR FEW /HPF (NONE SEEN); URIC ACID CRYSTALS,URINE MANY /HPF (NONE SEEN)
[2020-08-27] MEDS: PIPERACILLIN SODIUM/TAZOBACTAM 3.375 G in IV DEXTROSE 5% 50 ML IV SCH ×4 (02:08→20:07)
--- NOTE | 2020-08-27 04:49 | NUR ---
Patient is afebrile, on Zosyn and vancomycin IV for fever, no adverse reactions noted. Gt tolerating well, no nausea or vomiting noted, turned and repositioned, kept clean and comfortable.
[2020-08-27] MEDS: PANTOPRAZOLE ORAL SUSPENSION 40 MG SUSPDR.PKT GT SCH (06:15)
[2020-08-27] MEDS: HYDROGEN PEROXIDE 3% 118 ML BOTTLE TP SCH ×2 (07:29→21:27)
[2020-08-27 07:42] VITALS: BP 111/50
[2020-08-27 07:54] LABS: CREATININE 0.8 mg/dL (0.6-1.3); POTASSIUM 4.1 mmol/L (3.5-5.1)
[2020-08-27] MEDS: COD LIVER OIL/ZINC OXIDE OINT 113 GM TUBE TP SCH ×2 (08:05→20:34)
[2020-08-27] MEDS: DULOXETINE 20 MG CAPSULE.DR GT SCH (08:05)
[2020-08-27] MEDS: FINASTERIDE 5 MG TABLET GT SCH (08:05)
[2020-08-27] MEDS: VITAMINS A AND D OINT TP SCH (08:06)
[2020-08-27] MEDS: NEOMY/BACITRA/POLYMYXIN B OINT UD PACKET TP SCH ×2 (08:06→20:34)
[2020-08-27] MEDS: JEVITY 1.2 1000 ML LIQUID GT PRN (10:38)
[2020-08-27] MEDS: VANCOMYCIN IV 1,000 MG in IV DEXTROSE 5% 250 ML IV SCH ×2 (11:09→23:09)
[2020-08-27 20:12] VITALS: BP 120/45
[2020-08-27] MEDS: MULTIVIT, IRON, MIN NO. 8, FA TABLET GT SCH (20:34)
[2020-08-28] MEDS: JEVITY 1.2 1000 ML LIQUID GT PRN (02:07)
[2020-08-28] MEDS: PIPERACILLIN SODIUM/TAZOBACTAM 3.375 G in IV DEXTROSE 5% 50 ML IV SCH ×4 (02:22→20:10)
--- NOTE | 2020-08-28 02:58 | NUR ---
continue on with zosyn and vancomycin iv for fever, afevrile, no adverse reaction noted,no respiratory distress noted.
[2020-08-28] MEDS: PANTOPRAZOLE ORAL SUSPENSION 40 MG SUSPDR.PKT GT SCH (05:17)
[2020-08-28 07:26] LABS: CREATININE 0.8 mg/dL (0.6-1.3); POTASSIUM 3.6 mmol/L (3.5-5.1)
[2020-08-28 07:51] VITALS: BP 125/60
[2020-08-28] MEDS: DULOXETINE 20 MG CAPSULE.DR GT SCH (08:20)
[2020-08-28] MEDS: FINASTERIDE 5 MG TABLET GT SCH (08:20)
[2020-08-28] MEDS: COD LIVER OIL/ZINC OXIDE OINT 113 GM TUBE TP SCH ×2 (08:20→20:48)
[2020-08-28] MEDS: NEOMY/BACITRA/POLYMYXIN B OINT UD PACKET TP SCH ×2 (08:21→20:48)
[2020-08-28] MEDS: VITAMINS A AND D OINT TP SCH (08:21)
[2020-08-28] MEDS: HYDROGEN PEROXIDE 3% 118 ML BOTTLE TP SCH ×2 (09:00→21:26)
[2020-08-28] MEDS: VANCOMYCIN IV 1,000 MG in IV DEXTROSE 5% 250 ML IV SCH ×2 (11:00→22:51)
[2020-08-28] MEDS: TOBRAMYCIN SULFATE 80 MG/2 ML VIAL NEB SCH ×2 (15:58→23:02)
--- NOTE | 2020-08-28 18:00 | NUR ---
Patient is afebrile, on Zosyn and vancomycin IV for fever, no adverse reactions noted,HL changed to the L hand procedure tolerated well.
[2020-08-28 20:27] VITALS: BP 138/66
[2020-08-28] MEDS: MULTIVIT, IRON, MIN NO. 8, FA TABLET GT SCH (20:48)
[2020-08-29] MEDS: PIPERACILLIN SODIUM/TAZOBACTAM 3.375 G in IV DEXTROSE 5% 50 ML IV SCH ×4 (02:31→20:44)
[2020-08-29] MEDS: PANTOPRAZOLE ORAL SUSPENSION 40 MG SUSPDR.PKT GT SCH (05:26)
[2020-08-29 05:51] LABS: CREATININE 0.9 mg/dL (0.6-1.3); POTASSIUM 3.8 mmol/L (3.5-5.1)
--- NOTE | 2020-08-29 06:08 | NUR ---
started on tobramycin 80mg hhn q 12hrs for infection, no adverse reaction noted.
[2020-08-29] MEDS: TOBRAMYCIN SULFATE 80 MG/2 ML VIAL NEB SCH ×2 (07:28→19:32)
[2020-08-29 07:51] VITALS: BP 132/51
[2020-08-29] MEDS: VITAMINS A AND D OINT TP SCH (08:56)
[2020-08-29] MEDS: COD LIVER OIL/ZINC OXIDE OINT 113 GM TUBE TP SCH ×2 (08:56→20:54)
[2020-08-29] MEDS: DULOXETINE 20 MG CAPSULE.DR GT SCH (08:56)
[2020-08-29] MEDS: NEOMY/BACITRA/POLYMYXIN B OINT UD PACKET TP SCH ×2 (08:56→20:54)
[2020-08-29] MEDS: FINASTERIDE 5 MG TABLET GT SCH (08:56)
[2020-08-29] MEDS: HYDROGEN PEROXIDE 3% 118 ML BOTTLE TP SCH ×2 (09:10→21:48)
--- NOTE | 2020-08-29 19:00 | NUR ---
Vancomycin held today and new orders to dc vancomycin every 12 hours and start every 24 hours starting tomorrow.continue on zosyn as ordered.
[2020-08-29 20:26] VITALS: BP 134/68
[2020-08-29] MEDS: MULTIVIT, IRON, MIN NO. 8, FA TABLET GT SCH (20:54)
--- NOTE | 2020-08-30 00:40 | NUR ---
PT IN BED ON VENT WITH TRACH NO SOB DISTRESS.CONTINUE ON ZOSYN IVPB Q 6 HRS FOR FEVER NO A/R NOTED.
[2020-08-30] MEDS: PIPERACILLIN SODIUM/TAZOBACTAM 3.375 G in IV DEXTROSE 5% 50 ML IV SCH ×4 (01:28→20:58)
[2020-08-30] MEDS: PANTOPRAZOLE ORAL SUSPENSION 40 MG SUSPDR.PKT GT SCH (05:07)
[2020-08-30 06:47] LABS: BASOPHILS % (AUTO) 0.6 % (0.0-2.0); EOSINOPHILS # (AUTO) 0.3 K/uL (0.0-0.7); EOSINOPHILS % (AUTO) 7.4 % (0.0-7.0); HEMATOCRIT 31.6 % (36.7-47.1); HEMOGLOBIN 10.7 g/dL (12.5-16.3); LYMPHOCYTES # (AUTO) 1.4 K/uL (20.0-40.0); LYMPHOCYTES % (AUTO) 34.6 % (20.5-51.5); MEAN CORPUSCULAR HEMOGLOBIN 29.8 uug (23.8-33.4); MEAN CORPUSCULAR HGB CONC 34 g/dL (32.5-36.3); MEAN CORPUSCULAR VOLUME 88.1 fL (73.0-96.2); MONOCYTES # (AUTO) 0.3 K/uL (2.0-10.0); NEUTROPHILS % (AUTO) 49.4 % (38.5-71.5); PLATELET COUNT (AUTO) 200 K/uL (152-348); RED BLOOD CELL COUNT(AUTO) 3.59 MIL/uL (4.06-5.63); WHITE BLOOD COUNT (AUTO) 4.1 K/uL (3.6-10.2)
[2020-08-30] MEDS: TOBRAMYCIN SULFATE 80 MG/2 ML VIAL NEB SCH ×3 (07:00→19:41)
[2020-08-30 07:09] LABS: CREATININE 0.8 mg/dL (0.6-1.3); POTASSIUM 4.3 mmol/L (3.5-5.1)
[2020-08-30 07:52] VITALS: BP 124/74
[2020-08-30] MEDS: COD LIVER OIL/ZINC OXIDE OINT 113 GM TUBE TP SCH ×2 (08:28→20:38)
[2020-08-30] MEDS: VITAMINS A AND D OINT TP SCH (08:28)
[2020-08-30] MEDS: FINASTERIDE 5 MG TABLET GT SCH (08:28)
[2020-08-30] MEDS: NEOMY/BACITRA/POLYMYXIN B OINT UD PACKET TP SCH ×2 (08:28→20:38)
[2020-08-30] MEDS: DULOXETINE 20 MG CAPSULE.DR GT SCH (08:28)
[2020-08-30] MEDS: HYDROGEN PEROXIDE 3% 118 ML BOTTLE TP SCH ×2 (09:00→21:35)
[2020-08-30 20:18] VITALS: BP 126/76
[2020-08-30] MEDS: MULTIVIT, IRON, MIN NO. 8, FA TABLET GT SCH (20:38)
[2020-08-30] MEDS: ACETAMINOPHEN 650 MG/20 ML UDC- SA PATIENTS-PAIN ONLY GT PRN (20:40)
[2020-08-31] MEDS: PIPERACILLIN SODIUM/TAZOBACTAM 3.375 G in IV DEXTROSE 5% 50 ML IV SCH ×4 (02:32→20:19)
[2020-08-31] MEDS: PANTOPRAZOLE ORAL SUSPENSION 40 MG SUSPDR.PKT GT SCH (06:27)
[2020-08-31] MEDS: TOBRAMYCIN SULFATE 80 MG/2 ML VIAL NEB SCH ×2 (07:45→19:10)
[2020-08-31 07:50] VITALS: BP 129/62
[2020-08-31] MEDS: DULOXETINE 20 MG CAPSULE.DR GT SCH (08:35)
[2020-08-31] MEDS: COD LIVER OIL/ZINC OXIDE OINT 113 GM TUBE TP SCH ×2 (08:36→21:21)
[2020-08-31] MEDS: NEOMY/BACITRA/POLYMYXIN B OINT UD PACKET TP SCH ×2 (08:36→21:21)
[2020-08-31] MEDS: FINASTERIDE 5 MG TABLET GT SCH (08:36)
[2020-08-31] MEDS: VITAMINS A AND D OINT TP SCH (08:37)
[2020-08-31] MEDS: HYDROGEN PEROXIDE 3% 118 ML BOTTLE TP SCH ×2 (09:00→21:55)
[2020-08-31 20:24] VITALS: BP 136/68
[2020-08-31] MEDS: MULTIVIT, IRON, MIN NO. 8, FA TABLET GT SCH (21:21)
[2020-08-31] MEDS: JEVITY 1.2 1000 ML LIQUID GT PRN (23:30)
[2020-09-01] MEDS: PIPERACILLIN SODIUM/TAZOBACTAM 3.375 G in IV DEXTROSE 5% 50 ML IV SCH ×4 (02:29→20:27)
[2020-09-01] MEDS: PANTOPRAZOLE ORAL SUSPENSION 40 MG SUSPDR.PKT GT SCH (06:19)
[2020-09-01] MEDS: TOBRAMYCIN SULFATE 80 MG/2 ML VIAL NEB SCH ×2 (07:15→19:34)
[2020-09-01 07:45] VITALS: BP 124/62
[2020-09-01] MEDS: HYDROGEN PEROXIDE 3% 118 ML BOTTLE TP SCH ×2 (09:00→21:11)
[2020-09-01] MEDS: VITAMINS A AND D OINT TP SCH (09:00)
[2020-09-01] MEDS: NEOMY/BACITRA/POLYMYXIN B OINT UD PACKET TP SCH ×2 (09:00→21:25)
[2020-09-01] MEDS: COD LIVER OIL/ZINC OXIDE OINT 113 GM TUBE TP SCH ×2 (09:00→21:25)
[2020-09-01] MEDS: DULOXETINE 20 MG CAPSULE.DR GT SCH (09:00)
[2020-09-01] MEDS: FINASTERIDE 5 MG TABLET GT SCH (09:00)
--- NOTE | 2020-09-01 10:00 | NUR ---
Bobby pt's notified regarding Covid 19 negative.
[2020-09-01 20:16] VITALS: BP 139/64
[2020-09-01] MEDS: MULTIVIT, IRON, MIN NO. 8, FA TABLET GT SCH (21:25)
[2020-09-02] MEDS: PIPERACILLIN SODIUM/TAZOBACTAM 3.375 G in IV DEXTROSE 5% 50 ML IV SCH ×4 (02:43→20:04)
[2020-09-02] MEDS: PANTOPRAZOLE ORAL SUSPENSION 40 MG SUSPDR.PKT GT SCH (05:37)
[2020-09-02] MEDS: TOBRAMYCIN SULFATE 80 MG/2 ML VIAL NEB SCH ×2 (07:45→19:34)
[2020-09-02 07:54] VITALS: BP 124/64
[2020-09-02] MEDS: DULOXETINE 20 MG CAPSULE.DR GT SCH (08:03)
[2020-09-02] MEDS: COD LIVER OIL/ZINC OXIDE OINT 113 GM TUBE TP SCH ×2 (08:03→21:14)
[2020-09-02] MEDS: FINASTERIDE 5 MG TABLET GT SCH (08:03)
[2020-09-02] MEDS: VITAMINS A AND D OINT TP SCH (08:08)
[2020-09-02] MEDS: NEOMY/BACITRA/POLYMYXIN B OINT UD PACKET TP SCH ×2 (08:08→21:14)
[2020-09-02] MEDS: HYDROGEN PEROXIDE 3% 118 ML BOTTLE TP SCH ×2 (09:28→21:12)
[2020-09-02] MEDS: JEVITY 1.2 1000 ML LIQUID GT PRN (17:15)
[2020-09-02 20:00] VITALS: BP 126/68
[2020-09-02] MEDS: MULTIVIT, IRON, MIN NO. 8, FA TABLET GT SCH (21:14)
[2020-09-03] MEDS: PANTOPRAZOLE ORAL SUSPENSION 40 MG SUSPDR.PKT GT SCH (06:06)
[2020-09-03] MEDS: HYDROGEN PEROXIDE 3% 118 ML BOTTLE TP SCH ×2 (07:10→20:58)
[2020-09-03] MEDS: TOBRAMYCIN SULFATE 80 MG/2 ML VIAL NEB SCH (07:10)
[2020-09-03 07:30] VITALS: BP 119/63
[2020-09-03] MEDS: DULOXETINE 20 MG CAPSULE.DR GT SCH (09:24)
[2020-09-03] MEDS: FINASTERIDE 5 MG TABLET GT SCH (09:24)
[2020-09-03] MEDS: VITAMINS A AND D OINT TP SCH (09:25)
[2020-09-03] MEDS: COD LIVER OIL/ZINC OXIDE OINT 113 GM TUBE TP SCH ×2 (09:25→21:16)
[2020-09-03] MEDS: NEOMY/BACITRA/POLYMYXIN B OINT UD PACKET TP SCH (09:25)
[2020-09-03] MEDS: JEVITY 1.2 1000 ML LIQUID GT PRN (12:40)
[2020-09-03 20:28] VITALS: BP 134/57
[2020-09-03] MEDS: MULTIVIT, IRON, MIN NO. 8, FA TABLET GT SCH (21:16)
[2020-09-04] MEDS: PANTOPRAZOLE ORAL SUSPENSION 40 MG SUSPDR.PKT GT SCH (06:03)
[2020-09-04] MEDS: JEVITY 1.2 1000 ML LIQUID GT PRN (06:47)
[2020-09-04] MEDS: HYDROGEN PEROXIDE 3% 118 ML BOTTLE TP SCH ×2 (07:20→21:17)
[2020-09-04 07:30] VITALS: BP 120/59
[2020-09-04] MEDS: VITAMINS A AND D OINT TP SCH (09:00)
[2020-09-04] MEDS: FINASTERIDE 5 MG TABLET GT SCH (09:00)
[2020-09-04] MEDS: COD LIVER OIL/ZINC OXIDE OINT 113 GM TUBE TP SCH ×2 (09:00→20:34)
[2020-09-04] MEDS: DULOXETINE 20 MG CAPSULE.DR GT SCH (09:00)
[2020-09-04 20:32] VITALS: BP 118/55
[2020-09-04] MEDS: MULTIVIT, IRON, MIN NO. 8, FA TABLET GT SCH (20:34)
[2020-09-05] MEDS: JEVITY 1.2 1000 ML LIQUID GT PRN (01:00)
[2020-09-05] MEDS: PANTOPRAZOLE ORAL SUSPENSION 40 MG SUSPDR.PKT GT SCH (06:48)
[2020-09-05 07:31] VITALS: BP 117/71
[2020-09-05] MEDS: HYDROGEN PEROXIDE 3% 118 ML BOTTLE TP SCH ×2 (07:47→21:07)
[2020-09-05] MEDS: COD LIVER OIL/ZINC OXIDE OINT 113 GM TUBE TP SCH ×2 (09:01→21:23)
[2020-09-05] MEDS: VITAMINS A AND D OINT TP SCH (09:01)
[2020-09-05] MEDS: FINASTERIDE 5 MG TABLET GT SCH (09:01)
[2020-09-05] MEDS: DULOXETINE 20 MG CAPSULE.DR GT SCH (09:01)
--- NOTE | 2020-09-05 15:09 | NUR ---
NEW ORDER WAS CARRIED OUT [id number] TEST PER [facility] REQUIREMENT FROM DR KAMRAN Hughes AND IN AGREEMENT.
[2020-09-05 20:17] VITALS: BP 148/53
[2020-09-05] MEDS: MULTIVIT, IRON, MIN NO. 8, FA TABLET GT SCH (21:23)
[2020-09-06] MEDS: ONDANSETRON HCL 4 MG TABLET GT PRN (04:00)
[2020-09-06] MEDS: PANTOPRAZOLE ORAL SUSPENSION 40 MG SUSPDR.PKT GT SCH (05:29)
[2020-09-06 07:45] VITALS: BP 110/65
[2020-09-06] MEDS: VITAMINS A AND D OINT TP SCH (09:00)
[2020-09-06] MEDS: DULOXETINE 20 MG CAPSULE.DR GT SCH (09:00)
[2020-09-06] MEDS: FINASTERIDE 5 MG TABLET GT SCH (09:00)
[2020-09-06] MEDS: COD LIVER OIL/ZINC OXIDE OINT 113 GM TUBE TP SCH ×2 (09:00→20:29)
[2020-09-06] MEDS: HYDROGEN PEROXIDE 3% 118 ML BOTTLE TP SCH ×2 (09:38→21:55)
--- NOTE | 2020-09-06 16:53 | NUR ---
PT'S AWARE THAT PT. IS NEGATIVE FOR COVID 19 TEST.
[2020-09-06 20:00] VITALS: BP 121/71
[2020-09-06] MEDS: MULTIVIT, IRON, MIN NO. 8, FA TABLET GT SCH (20:29)
[2020-09-07] MEDS: JEVITY 1.2 1000 ML LIQUID GT PRN ×2 (01:29→17:51)
[2020-09-07] MEDS: PANTOPRAZOLE ORAL SUSPENSION 40 MG SUSPDR.PKT GT SCH (05:45)
[2020-09-07 07:31] VITALS: BP 126/65
[2020-09-07] MEDS: COD LIVER OIL/ZINC OXIDE OINT 113 GM TUBE TP SCH ×2 (08:10→20:38)
[2020-09-07] MEDS: FINASTERIDE 5 MG TABLET GT SCH (08:10)
[2020-09-07] MEDS: DULOXETINE 20 MG CAPSULE.DR GT SCH (08:10)
[2020-09-07] MEDS: VITAMINS A AND D OINT TP SCH (08:11)
[2020-09-07] MEDS: HYDROGEN PEROXIDE 3% 118 ML BOTTLE TP SCH ×2 (09:47→21:28)
--- NOTE | 2020-09-07 11:56 | NUR ---
WOUND CARE CONSULT: PT SEEN ON REQUEST OF POWER SYSTEM ELECTRICAL ENGINEER FOR G TUBE SITE WHICH HAS SOME IRRITATION DUE TO MOISTURE. RECOMMENDATIONS MADE FOR SKIN PROTECTION: Z GUARD EVERY SHIFT AND COVER WITH DRAIN SPONGE. SKIN TO BE KEPT CLEAN AND DRY. DISCUSSED WITH NURSING STAFF AND POWER SYSTEM ELECTRICAL ENGINEER. WILL SEE PRN. IN AGREEMENT WITH PLAN OF CARE.
--- NOTE | 2020-09-07 12:05 | NUR ---
Seen and examined by the wound vocational childcare teacher,due to gt site irritation with new orders noted.
[2020-09-07] MEDS: Z GUARD REMEDY PASTE 57 GM TUBE TOP SCH (20:38)
[2020-09-07] MEDS: MULTIVIT, IRON, MIN NO. 8, FA TABLET GT SCH (20:38)
[2020-09-07 20:49] VITALS: BP 125/64
[2020-09-08] MEDS: PANTOPRAZOLE ORAL SUSPENSION 40 MG SUSPDR.PKT GT SCH (05:37)
[2020-09-08] MEDS: HYDROGEN PEROXIDE 3% 118 ML BOTTLE TP SCH ×2 (07:45→20:35)
[2020-09-08 07:55] VITALS: BP 103/60
[2020-09-08] MEDS: COD LIVER OIL/ZINC OXIDE OINT 113 GM TUBE TP SCH ×2 (08:18→20:48)
[2020-09-08] MEDS: Z GUARD REMEDY PASTE 57 GM TUBE TOP SCH ×2 (08:18→20:48)
[2020-09-08] MEDS: VITAMINS A AND D OINT TP SCH (08:18)
[2020-09-08] MEDS: FINASTERIDE 5 MG TABLET GT SCH (08:18)
[2020-09-08] MEDS: DULOXETINE 20 MG CAPSULE.DR GT SCH (08:18)
[2020-09-08] MEDS: JEVITY 1.2 1000 ML LIQUID GT PRN (15:39)
[2020-09-08 20:19] VITALS: BP 142/77
[2020-09-08] MEDS: MULTIVIT, IRON, MIN NO. 8, FA TABLET GT SCH (20:48)
[2020-09-09] MEDS: PANTOPRAZOLE ORAL SUSPENSION 40 MG SUSPDR.PKT GT SCH (06:44)
[2020-09-09 07:37] VITALS: BP 148/68
[2020-09-09] MEDS: Z GUARD REMEDY PASTE 57 GM TUBE TOP SCH ×2 (08:27→21:41)
[2020-09-09] MEDS: VITAMINS A AND D OINT TP SCH (08:27)
[2020-09-09] MEDS: DULOXETINE 20 MG CAPSULE.DR GT SCH (08:27)
[2020-09-09] MEDS: COD LIVER OIL/ZINC OXIDE OINT 113 GM TUBE TP SCH ×2 (08:27→21:41)
[2020-09-09] MEDS: FINASTERIDE 5 MG TABLET GT SCH (08:27)
[2020-09-09] MEDS: HYDROGEN PEROXIDE 3% 118 ML BOTTLE TP SCH ×2 (09:00→21:18)
[2020-09-09 20:28] VITALS: BP 118/59
[2020-09-09] MEDS: MULTIVIT, IRON, MIN NO. 8, FA TABLET GT SCH (21:41)
[2020-09-10] MEDS: JEVITY 1.2 1000 ML LIQUID GT PRN ×2 (01:26→16:54)
[2020-09-10] MEDS: PANTOPRAZOLE ORAL SUSPENSION 40 MG SUSPDR.PKT GT SCH (05:26)
[2020-09-10 07:49] VITALS: BP 135/54
[2020-09-10] MEDS: DULOXETINE 20 MG CAPSULE.DR GT SCH (08:08)
[2020-09-10] MEDS: FINASTERIDE 5 MG TABLET GT SCH (08:09)
[2020-09-10] MEDS: VITAMINS A AND D OINT TP SCH (08:09)
[2020-09-10] MEDS: Z GUARD REMEDY PASTE 57 GM TUBE TOP SCH ×2 (08:09→20:50)
[2020-09-10] MEDS: COD LIVER OIL/ZINC OXIDE OINT 113 GM TUBE TP SCH ×2 (08:09→20:50)
[2020-09-10] MEDS: HYDROGEN PEROXIDE 3% 118 ML BOTTLE TP SCH ×2 (08:17→21:21)
[2020-09-10 20:12] VITALS: BP 121/50
[2020-09-10] MEDS: MULTIVIT, IRON, MIN NO. 8, FA TABLET GT SCH (20:50)
[2020-09-11] MEDS: PANTOPRAZOLE ORAL SUSPENSION 40 MG SUSPDR.PKT GT SCH (05:44)
[2020-09-11 08:05] VITALS: BP 135/68
[2020-09-11] MEDS: DULOXETINE 20 MG CAPSULE.DR GT SCH (08:28)
[2020-09-11] MEDS: FINASTERIDE 5 MG TABLET GT SCH (08:28)
[2020-09-11] MEDS: Z GUARD REMEDY PASTE 57 GM TUBE TOP SCH ×2 (08:29→21:26)
[2020-09-11] MEDS: COD LIVER OIL/ZINC OXIDE OINT 113 GM TUBE TP SCH ×2 (08:29→21:26)
[2020-09-11] MEDS: VITAMINS A AND D OINT TP SCH (08:29)
[2020-09-11] MEDS: HYDROGEN PEROXIDE 3% 118 ML BOTTLE TP SCH ×2 (09:13→21:10)
[2020-09-11] MEDS: JEVITY 1.2 1000 ML LIQUID GT PRN (11:39)
[2020-09-11 20:22] VITALS: BP 128/75
[2020-09-11] MEDS: MULTIVIT, IRON, MIN NO. 8, FA TABLET GT SCH (21:26)
[2020-09-12] MEDS: JEVITY 1.2 1000 ML LIQUID GT PRN ×2 (03:50→21:06)
[2020-09-12] MEDS: PANTOPRAZOLE ORAL SUSPENSION 40 MG SUSPDR.PKT GT SCH (05:51)
[2020-09-12 07:51] VITALS: BP 112/62
[2020-09-12] MEDS: HYDROGEN PEROXIDE 3% 118 ML BOTTLE TP SCH ×2 (09:00→19:03)
[2020-09-12] MEDS: FINASTERIDE 5 MG TABLET GT SCH (09:44)
[2020-09-12] MEDS: DULOXETINE 20 MG CAPSULE.DR GT SCH (09:44)
[2020-09-12] MEDS: Z GUARD REMEDY PASTE 57 GM TUBE TOP SCH ×2 (09:45→20:55)
[2020-09-12] MEDS: COD LIVER OIL/ZINC OXIDE OINT 113 GM TUBE TP SCH ×2 (09:45→20:55)
[2020-09-12] MEDS: VITAMINS A AND D OINT TP SCH (09:45)
--- NOTE | 2020-09-12 18:37 | NUR ---
Covid 19 test done today.per [facility] requirement.Responsible constitution party notified.
--- NOTE | 2020-09-12 19:02 | NUR ---
video chat provided with the family and pt. Family has no concern at this time and was so appreciative.
[2020-09-12 20:23] VITALS: BP 113/65
[2020-09-12] MEDS: MULTIVIT, IRON, MIN NO. 8, FA TABLET GT SCH (20:55)
[2020-09-13] MEDS: PANTOPRAZOLE ORAL SUSPENSION 40 MG SUSPDR.PKT GT SCH (06:18)
[2020-09-13] MEDS: HYDROGEN PEROXIDE 3% 118 ML BOTTLE TP SCH ×2 (07:04→21:12)
[2020-09-13 07:32] VITALS: BP 156/91
[2020-09-13] MEDS: FINASTERIDE 5 MG TABLET GT SCH (08:19)
[2020-09-13] MEDS: DULOXETINE 20 MG CAPSULE.DR GT SCH (08:19)
[2020-09-13] MEDS: Z GUARD REMEDY PASTE 57 GM TUBE TOP SCH ×2 (08:19→20:45)
[2020-09-13] MEDS: COD LIVER OIL/ZINC OXIDE OINT 113 GM TUBE TP SCH ×2 (08:19→20:45)
[2020-09-13] MEDS: VITAMINS A AND D OINT TP SCH (08:20)
--- NOTE | 2020-09-13 12:00 | NUR ---
SEEN BY CLAYTON Barclay AND WITH NNO.
--- NOTE | 2020-09-13 17:18 | NUR ---
PT'S AWARE THAT PT. IS NEGATIVE FOR COVID 19 TEST.
[2020-09-13] MEDS: JEVITY 1.2 1000 ML LIQUID GT PRN (17:56)
[2020-09-13] MEDS: MULTIVIT, IRON, MIN NO. 8, FA TABLET GT SCH (20:45)
[2020-09-13 20:52] VITALS: BP 140/90
[2020-09-14] MEDS: PANTOPRAZOLE ORAL SUSPENSION 40 MG SUSPDR.PKT GT SCH (06:35)
[2020-09-14 07:28] VITALS: BP 119/71
[2020-09-14] MEDS: HYDROGEN PEROXIDE 3% 118 ML BOTTLE TP SCH ×2 (07:50→21:00)
[2020-09-14] MEDS: FINASTERIDE 5 MG TABLET GT SCH (08:56)
[2020-09-14] MEDS: DULOXETINE 20 MG CAPSULE.DR GT SCH (08:56)
[2020-09-14] MEDS: COD LIVER OIL/ZINC OXIDE OINT 113 GM TUBE TP SCH ×2 (08:56→20:58)
[2020-09-14] MEDS: Z GUARD REMEDY PASTE 57 GM TUBE TOP SCH ×2 (08:56→20:58)
[2020-09-14] MEDS: VITAMINS A AND D OINT TP SCH (08:59)
[2020-09-14] MEDS: JEVITY 1.2 1000 ML LIQUID GT PRN (14:21)
--- NOTE | 2020-09-14 15:38 | NUR ---
INTERDISCIPLINARY PLAN OF CARE CONFERENCE was held today. Patient's was not available to participate in the meeting. Dr. Trujillo and the Interdisciplinary Team reviewed the current plan of care in detail. RN reported on patient's medical condition. See RN IDT conference notes. No major changes in medical condition were reported by nursing or by other disciplines. See all other disciplines IDT notes and physician's progress notes for additional details.
[2020-09-14 20:05] VITALS: BP 118/73
[2020-09-14] MEDS: MULTIVIT, IRON, MIN NO. 8, FA TABLET GT SCH (20:57)
[2020-09-15] MEDS: PANTOPRAZOLE ORAL SUSPENSION 40 MG SUSPDR.PKT GT SCH (06:04)
[2020-09-15 07:06] LABS: BASOPHILS % (AUTO) 0.4 % (0.0-2.0); EOSINOPHILS # (AUTO) 0.3 K/uL (0.0-0.7); EOSINOPHILS % (AUTO) 6.6 % (0.0-7.0); HEMATOCRIT 34.7 % (36.7-47.1); LYMPHOCYTES # (AUTO) 1.7 K/uL (20.0-40.0); MEAN CORPUSCULAR HEMOGLOBIN 30.2 uug (23.8-33.4); MEAN CORPUSCULAR HGB CONC 34 g/dL (32.5-36.3); MEAN CORPUSCULAR VOLUME 87.8 fL (73.0-96.2); MONOCYTES # (AUTO) 0.4 K/uL (2.0-10.0); MONOCYTES % (AUTO) 7.6 % (0.0-11.0); NEUTROPHILS # (AUTO) 2.6 K/uL (1.8-8.9); NEUTROPHILS % (AUTO) 51.4 % (38.5-71.5); PLATELET COUNT (AUTO) 190 K/uL (152-348); RED BLOOD CELL COUNT(AUTO) 3.96 MIL/uL (4.06-5.63); WHITE BLOOD COUNT (AUTO) 5.1 K/uL (3.6-10.2)
[2020-09-15 07:13] LABS: CREATININE 0.7 mg/dL (0.6-1.3); MAGNESIUM 2.1 mg/dL (1.8-2.4); PHOSPHOROUS 3.4 mg/dL (2.5-4.9); POTASSIUM 4.2 mmol/L (3.5-5.1)
[2020-09-15 07:29] VITALS: BP 109/60
[2020-09-15] MEDS: DULOXETINE 20 MG CAPSULE.DR GT SCH (08:38)
[2020-09-15] MEDS: Z GUARD REMEDY PASTE 57 GM TUBE TOP SCH ×2 (08:39→20:43)
[2020-09-15] MEDS: FINASTERIDE 5 MG TABLET GT SCH (08:39)
[2020-09-15] MEDS: COD LIVER OIL/ZINC OXIDE OINT 113 GM TUBE TP SCH ×2 (08:40→20:43)
[2020-09-15] MEDS: VITAMINS A AND D OINT TP SCH (08:41)
[2020-09-15] MEDS: HYDROGEN PEROXIDE 3% 118 ML BOTTLE TP SCH ×2 (09:10→21:44)
--- NOTE | 2020-09-15 18:06 | NUR ---
Seen and examined by Dr Trujillo with new orders noted,
[2020-09-15 20:00] VITALS: BP 110/70
[2020-09-15] MEDS: MULTIVIT, IRON, MIN NO. 8, FA TABLET GT SCH (20:43)
[2020-09-16] MEDS: JEVITY 1.2 1000 ML LIQUID GT PRN ×2 (01:10→21:16)
[2020-09-16] MEDS: PANTOPRAZOLE ORAL SUSPENSION 40 MG SUSPDR.PKT GT SCH (06:31)
[2020-09-16 07:48] VITALS: BP 122/71
[2020-09-16] MEDS: VITAMINS A AND D OINT TP SCH (08:25)
[2020-09-16] MEDS: FINASTERIDE 5 MG TABLET GT SCH (08:25)
[2020-09-16] MEDS: Z GUARD REMEDY PASTE 57 GM TUBE TOP SCH ×2 (08:25→21:12)
[2020-09-16] MEDS: DULOXETINE 20 MG CAPSULE.DR GT SCH (08:25)
[2020-09-16] MEDS: COD LIVER OIL/ZINC OXIDE OINT 113 GM TUBE TP SCH ×2 (08:25→21:12)
[2020-09-16] MEDS: HYDROGEN PEROXIDE 3% 118 ML BOTTLE TP SCH ×2 (09:59→21:35)
[2020-09-16 20:00] VITALS: BP 127/70
[2020-09-16] MEDS: MULTIVIT, IRON, MIN NO. 8, FA TABLET GT SCH (21:12)
[2020-09-17] MEDS: PANTOPRAZOLE ORAL SUSPENSION 40 MG SUSPDR.PKT GT SCH (05:53)
[2020-09-17 07:31] VITALS: BP 124/58
[2020-09-17] MEDS: HYDROGEN PEROXIDE 3% 118 ML BOTTLE TP SCH ×2 (08:39→21:17)
[2020-09-17] MEDS: Z GUARD REMEDY PASTE 57 GM TUBE TOP SCH ×2 (09:05→20:45)
[2020-09-17] MEDS: DULOXETINE 20 MG CAPSULE.DR GT SCH (09:05)
[2020-09-17] MEDS: COD LIVER OIL/ZINC OXIDE OINT 113 GM TUBE TP SCH ×2 (09:05→20:45)
[2020-09-17] MEDS: FINASTERIDE 5 MG TABLET GT SCH (09:05)
[2020-09-17] MEDS: VITAMINS A AND D OINT TP SCH (09:05)
[2020-09-17] MEDS: JEVITY 1.2 1000 ML LIQUID GT PRN (16:53)
[2020-09-17 20:00] VITALS: BP 106/64
[2020-09-17] MEDS: MULTIVIT, IRON, MIN NO. 8, FA TABLET GT SCH (20:45)
[2020-09-18] MEDS: PANTOPRAZOLE ORAL SUSPENSION 40 MG SUSPDR.PKT GT SCH (05:22)
[2020-09-18] MEDS: HYDROGEN PEROXIDE 3% 118 ML BOTTLE TP SCH ×2 (07:15→21:38)
[2020-09-18 07:28] VITALS: BP 110/65
[2020-09-18] MEDS: DULOXETINE 20 MG CAPSULE.DR GT SCH (08:48)
[2020-09-18] MEDS: Z GUARD REMEDY PASTE 57 GM TUBE TOP SCH ×2 (08:50→20:49)
[2020-09-18] MEDS: VITAMINS A AND D OINT TP SCH (08:50)
[2020-09-18] MEDS: COD LIVER OIL/ZINC OXIDE OINT 113 GM TUBE TP SCH ×2 (08:50→20:49)
[2020-09-18] MEDS: FINASTERIDE 5 MG TABLET GT SCH (08:50)
[2020-09-18] MEDS: JEVITY 1.2 1000 ML LIQUID GT PRN (12:36)
[2020-09-18 19:31] VITALS: BP 125/54
[2020-09-18] MEDS: MULTIVIT, IRON, MIN NO. 8, FA TABLET GT SCH (20:49)
[2020-09-19] MEDS: PANTOPRAZOLE ORAL SUSPENSION 40 MG SUSPDR.PKT GT SCH (05:17)
[2020-09-19] MEDS: HYDROGEN PEROXIDE 3% 118 ML BOTTLE TP SCH ×2 (07:20→20:07)
[2020-09-19 07:33] VITALS: BP 131/61
[2020-09-19] MEDS: COD LIVER OIL/ZINC OXIDE OINT 113 GM TUBE TP SCH ×2 (08:19→20:07)
[2020-09-19] MEDS: DULOXETINE 20 MG CAPSULE.DR GT SCH (08:19)
[2020-09-19] MEDS: FINASTERIDE 5 MG TABLET GT SCH (08:19)
[2020-09-19] MEDS: VITAMINS A AND D OINT TP SCH (08:19)
[2020-09-19] MEDS: Z GUARD REMEDY PASTE 57 GM TUBE TOP SCH ×2 (08:19→20:07)
[2020-09-19] MEDS: JEVITY 1.2 1000 ML LIQUID GT PRN (08:31)
[2020-09-19 19:45] VITALS: BP 125/70
[2020-09-19] MEDS: MULTIVIT, IRON, MIN NO. 8, FA TABLET GT SCH (20:07)
[2020-09-20] MEDS: PANTOPRAZOLE ORAL SUSPENSION 40 MG SUSPDR.PKT GT SCH (05:32)
--- NOTE | 2020-09-20 07:02 | NUR ---
Will test patient for COVID-19 today.
[2020-09-20] MEDS: HYDROGEN PEROXIDE 3% 118 ML BOTTLE TP SCH ×2 (07:15→20:12)
[2020-09-20 07:54] VITALS: BP 125/82
[2020-09-20] MEDS: DULOXETINE 20 MG CAPSULE.DR GT SCH (09:30)
[2020-09-20] MEDS: VITAMINS A AND D OINT TP SCH (09:30)
[2020-09-20] MEDS: FINASTERIDE 5 MG TABLET GT SCH (09:30)
[2020-09-20] MEDS: COD LIVER OIL/ZINC OXIDE OINT 113 GM TUBE TP SCH ×2 (09:30→20:12)
[2020-09-20] MEDS: Z GUARD REMEDY PASTE 57 GM TUBE TOP SCH ×2 (09:30→20:12)
--- NOTE | 2020-09-20 12:30 | NUR ---
SEEN BY CLAYTON JARAMILLO WITH NNO.
--- NOTE | 2020-09-20 17:29 | NUR ---
NO COVID 19 TEST REQUIRED BY [facility] TODAY.
--- NOTE | 2020-09-20 17:29 | NUR ---
PT'S AWARE THAT PER [facility] NO COVID 19 TEST REQUIRED TODAY.
[2020-09-20] MEDS: JEVITY 1.2 1000 ML LIQUID GT PRN (17:40)
[2020-09-20] MEDS: MULTIVIT, IRON, MIN NO. 8, FA TABLET GT SCH (20:12)
[2020-09-20 20:19] VITALS: BP 121/55
[2020-09-21] MEDS: PANTOPRAZOLE ORAL SUSPENSION 40 MG SUSPDR.PKT GT SCH (05:28)
[2020-09-21 08:07] VITALS: BP 130/68
[2020-09-21] MEDS: HYDROGEN PEROXIDE 3% 118 ML BOTTLE TP SCH ×2 (09:21→21:05)
[2020-09-21] MEDS: Z GUARD REMEDY PASTE 57 GM TUBE TOP SCH (09:41)
[2020-09-21] MEDS: COD LIVER OIL/ZINC OXIDE OINT 113 GM TUBE TP SCH ×2 (09:41→20:15)
[2020-09-21] MEDS: VITAMINS A AND D OINT TP SCH (09:41)
[2020-09-21] MEDS: FINASTERIDE 5 MG TABLET GT SCH (09:41)
[2020-09-21] MEDS: DULOXETINE 20 MG CAPSULE.DR GT SCH (09:41)
[2020-09-21] MEDS: JEVITY 1.2 1000 ML LIQUID GT PRN (14:30)
[2020-09-21 20:03] VITALS: BP 127/52
[2020-09-21] MEDS: MULTIVIT, IRON, MIN NO. 8, FA TABLET GT SCH (20:14)
[2020-09-22] MEDS: JEVITY 1.2 1000 ML LIQUID GT PRN (06:12)
[2020-09-22] MEDS: PANTOPRAZOLE ORAL SUSPENSION 40 MG SUSPDR.PKT GT SCH (06:12)
[2020-09-22] MEDS: HYDROGEN PEROXIDE 3% 118 ML BOTTLE TP SCH ×2 (07:34→21:15)
[2020-09-22 07:42] VITALS: BP 119/62
[2020-09-22] MEDS: COD LIVER OIL/ZINC OXIDE OINT 113 GM TUBE TP SCH ×2 (08:59→21:57)
[2020-09-22] MEDS: DULOXETINE 20 MG CAPSULE.DR GT SCH (08:59)
[2020-09-22] MEDS: FINASTERIDE 5 MG TABLET GT SCH (08:59)
[2020-09-22] MEDS: VITAMINS A AND D OINT TP SCH (09:00)
--- NOTE | 2020-09-22 17:06 | NUR ---
Seen and examined by Dr Smith ,no new orders.
--- NOTE | 2020-09-22 19:58 | NUR ---
Seen and examined by Dr Trujillo notified of the small ingrown tissue noted on the Gt Site,no new orders at this time.
[2020-09-22 20:21] VITALS: BP 125/65
[2020-09-22] MEDS: MULTIVIT, IRON, MIN NO. 8, FA TABLET GT SCH (21:57)
[2020-09-23] MEDS: JEVITY 1.2 1000 ML LIQUID GT PRN ×2 (01:00→18:03)
[2020-09-23] MEDS: PANTOPRAZOLE ORAL SUSPENSION 40 MG SUSPDR.PKT GT SCH (06:15)
[2020-09-23 06:42] LABS: CREATININE 0.7 mg/dL (0.6-1.3); MAGNESIUM 2.1 mg/dL (1.8-2.4); PHOSPHOROUS 3.7 mg/dL (2.5-4.9); POTASSIUM 4.5 mmol/L (3.5-5.1)
[2020-09-23 06:47] LABS: BASOPHILS % (AUTO) 0.3 % (0.0-2.0); EOSINOPHILS # (AUTO) 0.4 K/uL (0.0-0.7); EOSINOPHILS % (AUTO) 7.9 % (0.0-7.0); HEMATOCRIT 35.3 % (36.7-47.1); HEMOGLOBIN 11.7 g/dL (12.5-16.3); LYMPHOCYTES # (AUTO) 1.5 K/uL (20.0-40.0); MEAN CORPUSCULAR HEMOGLOBIN 29.7 uug (23.8-33.4); MEAN CORPUSCULAR HGB CONC 33 g/dL (32.5-36.3); MEAN CORPUSCULAR VOLUME 89.4 fL (73.0-96.2); MONOCYTES # (AUTO) 0.4 K/uL (2.0-10.0); MONOCYTES % (AUTO) 8.2 % (0.0-11.0); NEUTROPHILS # (AUTO) 2.8 K/uL (1.8-8.9); NEUTROPHILS % (AUTO) 54.6 % (38.5-71.5); PLATELET COUNT (AUTO) 161 K/uL (152-348); RED BLOOD CELL COUNT(AUTO) 3.95 MIL/uL (4.06-5.63); WHITE BLOOD COUNT (AUTO) 5.1 K/uL (3.6-10.2)
[2020-09-23 07:38] VITALS: BP 124/60
[2020-09-23] MEDS: FINASTERIDE 5 MG TABLET GT SCH (08:32)
[2020-09-23] MEDS: DULOXETINE 20 MG CAPSULE.DR GT SCH (08:32)
[2020-09-23] MEDS: COD LIVER OIL/ZINC OXIDE OINT 113 GM TUBE TP SCH ×2 (08:32→21:00)
[2020-09-23] MEDS: VITAMINS A AND D OINT TP SCH (08:33)
[2020-09-23] MEDS: HYDROGEN PEROXIDE 3% 118 ML BOTTLE TP SCH ×2 (09:18→21:43)
[2020-09-23 20:11] VITALS: BP 127/73
[2020-09-23] MEDS: MULTIVIT, IRON, MIN NO. 8, FA TABLET GT SCH (21:00)
[2020-09-24] MEDS: PANTOPRAZOLE ORAL SUSPENSION 40 MG SUSPDR.PKT GT SCH (05:59)
[2020-09-24 07:40] VITALS: BP 138/49
[2020-09-24] MEDS: COD LIVER OIL/ZINC OXIDE OINT 113 GM TUBE TP SCH ×2 (08:29→21:00)
[2020-09-24] MEDS: VITAMINS A AND D OINT TP SCH (08:29)
[2020-09-24] MEDS: DULOXETINE 20 MG CAPSULE.DR GT SCH (08:29)
[2020-09-24] MEDS: FINASTERIDE 5 MG TABLET GT SCH (08:29)
[2020-09-24] MEDS: HYDROGEN PEROXIDE 3% 118 ML BOTTLE TP SCH ×2 (08:57→21:20)
[2020-09-24] MEDS: JEVITY 1.2 1000 ML LIQUID GT PRN (11:30)
[2020-09-24] MEDS: MULTIVIT, IRON, MIN NO. 8, FA TABLET GT SCH (21:00)
[2020-09-24 22:41] VITALS: BP 129/56
[2020-09-25] MEDS: JEVITY 1.2 1000 ML LIQUID GT PRN (03:28)
[2020-09-25] MEDS: PANTOPRAZOLE ORAL SUSPENSION 40 MG SUSPDR.PKT GT SCH (05:47)
[2020-09-25 07:43] VITALS: BP 132/55
[2020-09-25] MEDS: FINASTERIDE 5 MG TABLET GT SCH (08:51)
[2020-09-25] MEDS: COD LIVER OIL/ZINC OXIDE OINT 113 GM TUBE TP SCH ×2 (08:51→20:55)
[2020-09-25] MEDS: DULOXETINE 20 MG CAPSULE.DR GT SCH (08:51)
[2020-09-25] MEDS: VITAMINS A AND D OINT TP SCH (08:52)
[2020-09-25] MEDS: HYDROGEN PEROXIDE 3% 118 ML BOTTLE TP SCH ×2 (09:04→20:56)
[2020-09-25] MEDS: ACETAMINOPHEN 650 MG/20 ML UDC- SA PATIENTS-PAIN ONLY GT PRN (12:01)
[2020-09-25] MEDS: MULTIVIT, IRON, MIN NO. 8, FA TABLET GT SCH (20:55)
[2020-09-25 22:24] VITALS: BP 118/50
[2020-09-26] MEDS: JEVITY 1.2 1000 ML LIQUID GT PRN (04:27)
[2020-09-26] MEDS: PANTOPRAZOLE ORAL SUSPENSION 40 MG SUSPDR.PKT GT SCH (05:02)
[2020-09-26 07:44] VITALS: BP 124/60
[2020-09-26] MEDS: FINASTERIDE 5 MG TABLET GT SCH (09:00)
[2020-09-26] MEDS: DULOXETINE 20 MG CAPSULE.DR GT SCH (09:00)
[2020-09-26] MEDS: VITAMINS A AND D OINT TP SCH (09:02)
[2020-09-26] MEDS: COD LIVER OIL/ZINC OXIDE OINT 113 GM TUBE TP SCH ×2 (09:02→21:10)
[2020-09-26] MEDS: HYDROGEN PEROXIDE 3% 118 ML BOTTLE TP SCH ×2 (09:19→20:34)
[2020-09-26 19:57] VITALS: BP 120/69
[2020-09-26] MEDS: MULTIVIT, IRON, MIN NO. 8, FA TABLET GT SCH (21:10)
[2020-09-27] MEDS: JEVITY 1.2 1000 ML LIQUID GT PRN ×2 (01:00→18:28)
[2020-09-27] MEDS: PANTOPRAZOLE ORAL SUSPENSION 40 MG SUSPDR.PKT GT SCH (06:20)
[2020-09-27 08:03] VITALS: BP 102/72
[2020-09-27] MEDS: HYDROGEN PEROXIDE 3% 118 ML BOTTLE TP SCH ×2 (08:18→18:58)
[2020-09-27] MEDS: DULOXETINE 20 MG CAPSULE.DR GT SCH (09:16)
[2020-09-27] MEDS: VITAMINS A AND D OINT TP SCH (09:17)
[2020-09-27] MEDS: FINASTERIDE 5 MG TABLET GT SCH (09:17)
[2020-09-27] MEDS: COD LIVER OIL/ZINC OXIDE OINT 113 GM TUBE TP SCH ×2 (09:17→21:54)
[2020-09-27 20:09] VITALS: BP 104/58
[2020-09-27] MEDS: MULTIVIT, IRON, MIN NO. 8, FA TABLET GT SCH (21:54)
[2020-09-28] MEDS: PANTOPRAZOLE ORAL SUSPENSION 40 MG SUSPDR.PKT GT SCH (05:51)
[2020-09-28 07:31] VITALS: BP 143/83
[2020-09-28] MEDS: DULOXETINE 20 MG CAPSULE.DR GT SCH (08:36)
[2020-09-28] MEDS: FINASTERIDE 5 MG TABLET GT SCH (08:36)
[2020-09-28] MEDS: COD LIVER OIL/ZINC OXIDE OINT 113 GM TUBE TP SCH ×2 (08:36→20:04)
[2020-09-28] MEDS: VITAMINS A AND D OINT TP SCH (08:37)
[2020-09-28] MEDS: HYDROGEN PEROXIDE 3% 118 ML BOTTLE TP SCH ×2 (09:38→20:31)
[2020-09-28] MEDS: JEVITY 1.2 1000 ML LIQUID GT PRN (12:14)
[2020-09-28] MEDS: MULTIVIT, IRON, MIN NO. 8, FA TABLET GT SCH (20:04)
[2020-09-28 20:47] VITALS: BP 119/35
[2020-09-29] MEDS: JEVITY 1.2 1000 ML LIQUID GT PRN ×2 (02:44→23:53)
[2020-09-29] MEDS: PANTOPRAZOLE ORAL SUSPENSION 40 MG SUSPDR.PKT GT SCH (06:15)
[2020-09-29] MEDS: VITAMINS A AND D OINT TP SCH (08:49)
[2020-09-29] MEDS: COD LIVER OIL/ZINC OXIDE OINT 113 GM TUBE TP SCH ×2 (08:49→20:38)
[2020-09-29] MEDS: DULOXETINE 20 MG CAPSULE.DR GT SCH (08:49)
[2020-09-29] MEDS: FINASTERIDE 5 MG TABLET GT SCH (08:49)
[2020-09-29] MEDS: HYDROGEN PEROXIDE 3% 118 ML BOTTLE TP SCH ×2 (09:33→21:01)
--- NOTE | 2020-09-29 13:30 | NUR ---
Video chat provided with the family and pt. Family has no concern at this time and was so appreciative. Patient not in any distress.
--- NOTE | 2020-09-29 19:08 | NUR ---
Seen and examined By Dr Trujillo,no new orders noted
[2020-09-29 20:00] VITALS: BP 124/55
[2020-09-29] MEDS: MULTIVIT, IRON, MIN NO. 8, FA TABLET GT SCH (20:38)
[2020-09-30] MEDS: PANTOPRAZOLE ORAL SUSPENSION 40 MG SUSPDR.PKT GT SCH (06:20)
[2020-09-30 07:35] VITALS: BP 112/68
[2020-09-30] MEDS: COD LIVER OIL/ZINC OXIDE OINT 113 GM TUBE TP SCH ×2 (09:31→20:33)
[2020-09-30] MEDS: FINASTERIDE 5 MG TABLET GT SCH (09:31)
[2020-09-30] MEDS: VITAMINS A AND D OINT TP SCH (09:31)
[2020-09-30] MEDS: DULOXETINE 20 MG CAPSULE.DR GT SCH (09:31)
[2020-09-30] MEDS: HYDROGEN PEROXIDE 3% 118 ML BOTTLE TP SCH ×2 (09:45→21:26)
--- NOTE | 2020-09-30 19:27 | NUR ---
Received pt on HT-50 ventilator with the following settings of AC-12, Vt-550, PEEP+5, FIO2-2LPM bleed-in, trached with Shiley#8 DCT trach, which is in the place and secure. No s/s of respiratory distress noted. Airway care done, pt responded to physical stimuli. HME changed. Resus. bag and back up trach at bedside. Vent and alarms checked and reset.
[2020-09-30 20:00] VITALS: BP 142/67
[2020-09-30] MEDS: MULTIVIT, IRON, MIN NO. 8, FA TABLET GT SCH (20:33)
[2020-10-01] MEDS: PANTOPRAZOLE ORAL SUSPENSION 40 MG SUSPDR.PKT GT SCH (06:18)
[2020-10-01] MEDS: HYDROGEN PEROXIDE 3% 118 ML BOTTLE TP SCH ×2 (07:47→21:20)
[2020-10-01 07:51] VITALS: BP 138/74
[2020-10-01] MEDS: DULOXETINE 20 MG CAPSULE.DR GT SCH (08:13)
[2020-10-01] MEDS: VITAMINS A AND D OINT TP SCH (08:13)
[2020-10-01] MEDS: FINASTERIDE 5 MG TABLET GT SCH (08:13)
[2020-10-01] MEDS: COD LIVER OIL/ZINC OXIDE OINT 113 GM TUBE TP SCH ×2 (08:13→21:00)
[2020-10-01] MEDS: JEVITY 1.2 1000 ML LIQUID GT PRN (14:07)
[2020-10-01 20:00] VITALS: BP 135/70
[2020-10-01] MEDS: MULTIVIT, IRON, MIN NO. 8, FA TABLET GT SCH (21:00)
[2020-10-02] MEDS: JEVITY 1.2 1000 ML LIQUID GT PRN (04:14)
[2020-10-02] MEDS: PANTOPRAZOLE ORAL SUSPENSION 40 MG SUSPDR.PKT GT SCH (05:31)
[2020-10-02] MEDS: HYDROGEN PEROXIDE 3% 118 ML BOTTLE TP SCH ×2 (07:20→21:20)
[2020-10-02 08:00] VITALS: BP 116/56
[2020-10-02] MEDS: FINASTERIDE 5 MG TABLET GT SCH (09:03)
[2020-10-02] MEDS: DULOXETINE 20 MG CAPSULE.DR GT SCH (09:03)
[2020-10-02] MEDS: MULTIVIT, IRON, MIN NO. 8, FA TABLET GT SCH (09:03)
[2020-10-02] MEDS: VITAMINS A AND D OINT TP SCH (09:03)
[2020-10-02] MEDS: COD LIVER OIL/ZINC OXIDE OINT 113 GM TUBE TP SCH ×2 (09:03→21:20)
[2020-10-02 20:09] VITALS: BP 127/71
[2020-10-03] MEDS: ACETAMINOPHEN 650 MG/20 ML UDC- SA PATIENTS-PAIN ONLY GT PRN (00:30)
[2020-10-03] MEDS: JEVITY 1.2 1000 ML LIQUID GT PRN (00:37)
[2020-10-03] MEDS: PANTOPRAZOLE ORAL SUSPENSION 40 MG SUSPDR.PKT GT SCH (05:48)
[2020-10-03 07:38] VITALS: BP 102/63
[2020-10-03] MEDS: FINASTERIDE 5 MG TABLET GT SCH (09:03)
[2020-10-03] MEDS: VITAMINS A AND D OINT TP SCH (09:03)
[2020-10-03] MEDS: COD LIVER OIL/ZINC OXIDE OINT 113 GM TUBE TP SCH ×2 (09:03→21:48)
[2020-10-03] MEDS: DULOXETINE 20 MG CAPSULE.DR GT SCH (09:03)
[2020-10-03] MEDS: HYDROGEN PEROXIDE 3% 118 ML BOTTLE TP SCH ×2 (09:52→21:02)
--- NOTE | 2020-10-03 12:13 | NUR ---
MESSAGE WAS LEFT FOR PT'S FOR ORDER FOR COVID 19 TEST PER [facility] REQUIREMENT.
[2020-10-03 20:27] VITALS: BP 126/60
[2020-10-03] MEDS: MULTIVIT, IRON, MIN NO. 8, FA TABLET GT SCH (21:48)
[2020-10-04] MEDS: JEVITY 1.2 1000 ML LIQUID GT PRN (01:05)
[2020-10-04] MEDS: PANTOPRAZOLE ORAL SUSPENSION 40 MG SUSPDR.PKT GT SCH (05:51)
[2020-10-04 07:35] VITALS: BP 127/45
[2020-10-04] MEDS: DULOXETINE 20 MG CAPSULE.DR GT SCH (09:13)
[2020-10-04] MEDS: COD LIVER OIL/ZINC OXIDE OINT 113 GM TUBE TP SCH ×2 (09:13→20:53)
[2020-10-04] MEDS: VITAMINS A AND D OINT TP SCH (09:13)
[2020-10-04] MEDS: FINASTERIDE 5 MG TABLET GT SCH (09:13)
[2020-10-04] MEDS: HYDROGEN PEROXIDE 3% 118 ML BOTTLE TP SCH ×2 (09:50→21:24)
[2020-10-04 20:01] VITALS: BP 124/69
[2020-10-04] MEDS: MULTIVIT, IRON, MIN NO. 8, FA TABLET GT SCH (20:53)
[2020-10-05] MEDS: PANTOPRAZOLE ORAL SUSPENSION 40 MG SUSPDR.PKT GT SCH (05:47)
[2020-10-05] MEDS: HYDROGEN PEROXIDE 3% 118 ML BOTTLE TP SCH ×2 (07:22→21:04)
[2020-10-05 07:24] VITALS: BP 123/75
[2020-10-05] MEDS: DULOXETINE 20 MG CAPSULE.DR GT SCH (08:31)
[2020-10-05] MEDS: VITAMINS A AND D OINT TP SCH (08:31)
[2020-10-05] MEDS: FINASTERIDE 5 MG TABLET GT SCH (08:31)
[2020-10-05] MEDS: COD LIVER OIL/ZINC OXIDE OINT 113 GM TUBE TP SCH ×2 (08:31→20:45)
--- NOTE | 2020-10-05 11:05 | NUR ---
PT'S AWARE OF NEGATIVE COVID 19 TEST.
--- NOTE | 2020-10-05 12:00 | NUR ---
Provided video chat to pt. and his with no problem noted, pt. remains comfortable, all needs attended and anticipated.
--- NOTE | 2020-10-05 19:51 | NUR ---
SEEN AND EXAMINED BY DR Nava,NO NEW ORDERS.
[2020-10-05 20:00] VITALS: BP 129/72
[2020-10-05] MEDS: MULTIVIT, IRON, MIN NO. 8, FA TABLET GT SCH (20:44)
[2020-10-06] MEDS: JEVITY 1.2 1000 ML LIQUID GT PRN (02:55)
[2020-10-06] MEDS: PANTOPRAZOLE ORAL SUSPENSION 40 MG SUSPDR.PKT GT SCH (06:18)
[2020-10-06] MEDS: HYDROGEN PEROXIDE 3% 118 ML BOTTLE TP SCH ×2 (07:20→20:57)
[2020-10-06 07:25] VITALS: BP 129/69
[2020-10-06] MEDS: DULOXETINE 20 MG CAPSULE.DR GT SCH (08:41)
[2020-10-06] MEDS: COD LIVER OIL/ZINC OXIDE OINT 113 GM TUBE TP SCH ×2 (08:42→20:54)
[2020-10-06] MEDS: FINASTERIDE 5 MG TABLET GT SCH (08:42)
[2020-10-06] MEDS: VITAMINS A AND D OINT TP SCH (08:42)
[2020-10-06 20:00] VITALS: BP 127/54
[2020-10-06] MEDS: MULTIVIT, IRON, MIN NO. 8, FA TABLET GT SCH (20:54)
[2020-10-07] MEDS: PANTOPRAZOLE ORAL SUSPENSION 40 MG SUSPDR.PKT GT SCH (05:59)
[2020-10-07] MEDS: HYDROGEN PEROXIDE 3% 118 ML BOTTLE TP SCH ×2 (07:25→21:46)
[2020-10-07 08:10] VITALS: BP 131/66
[2020-10-07] MEDS: VITAMINS A AND D OINT TP SCH (08:11)
[2020-10-07] MEDS: DULOXETINE 20 MG CAPSULE.DR GT SCH (08:11)
[2020-10-07] MEDS: FINASTERIDE 5 MG TABLET GT SCH (08:11)
[2020-10-07] MEDS: COD LIVER OIL/ZINC OXIDE OINT 113 GM TUBE TP SCH ×2 (08:11→20:50)
--- NOTE | 2020-10-07 17:20 | NUR ---
CALLED AND NOTIFIED RESPONSIBLE [employer]STITUTION PARTY OF ANNUAL PPD TEST. NOTIFIED CLARICE CUNNINGHAM OF THE PPD TEST, AND SHE OKAYED TO GIVE TEST.
[2020-10-07 20:00] VITALS: BP 125/69
[2020-10-07] MEDS: MULTIVIT, IRON, MIN NO. 8, FA TABLET GT SCH (20:50)
[2020-10-08] MEDS: JEVITY 1.2 1000 ML LIQUID GT PRN (00:54)
[2020-10-08] MEDS: PANTOPRAZOLE ORAL SUSPENSION 40 MG SUSPDR.PKT GT SCH (06:04)
[2020-10-08 07:30] VITALS: BP 113/55
[2020-10-08] MEDS: DULOXETINE 20 MG CAPSULE.DR GT SCH (08:48)
[2020-10-08] MEDS: FINASTERIDE 5 MG TABLET GT SCH (08:48)
[2020-10-08] MEDS: COD LIVER OIL/ZINC OXIDE OINT 113 GM TUBE TP SCH ×2 (08:51→20:32)
[2020-10-08] MEDS: VITAMINS A AND D OINT TP SCH (08:51)
[2020-10-08] MEDS: HYDROGEN PEROXIDE 3% 118 ML BOTTLE TP SCH ×2 (09:37→21:42)
[2020-10-08 20:12] VITALS: BP 124/69
[2020-10-08] MEDS: MULTIVIT, IRON, MIN NO. 8, FA TABLET GT SCH (20:32)
[2020-10-09] MEDS: PANTOPRAZOLE ORAL SUSPENSION 40 MG SUSPDR.PKT GT SCH (05:45)
[2020-10-09 07:58] VITALS: BP 133/71
[2020-10-09] MEDS: FINASTERIDE 5 MG TABLET GT SCH (08:16)
[2020-10-09] MEDS: COD LIVER OIL/ZINC OXIDE OINT 113 GM TUBE TP SCH ×2 (08:16→20:40)
[2020-10-09] MEDS: DULOXETINE 20 MG CAPSULE.DR GT SCH (08:16)
[2020-10-09] MEDS: VITAMINS A AND D OINT TP SCH (08:17)
[2020-10-09] MEDS: HYDROGEN PEROXIDE 3% 118 ML BOTTLE TP SCH ×2 (09:10→21:00)
[2020-10-09] MEDS: JEVITY 1.2 1000 ML LIQUID GT PRN (12:04)
--- NOTE | 2020-10-09 18:00 | NUR ---
Seen and examined by Dr Smith and Dr Trujillo with new orders noted.
[2020-10-09 20:14] VITALS: BP 126/46
[2020-10-09] MEDS: MULTIVIT, IRON, MIN NO. 8, FA TABLET GT SCH (20:40)
[2020-10-10] MEDS: JEVITY 1.2 1000 ML LIQUID GT PRN ×2 (03:15→22:56)
[2020-10-10] MEDS: PANTOPRAZOLE ORAL SUSPENSION 40 MG SUSPDR.PKT GT SCH (05:57)
[2020-10-10 07:35] LABS: CREATININE 0.7 mg/dL (0.6-1.3); MAGNESIUM 2.2 mg/dL (1.8-2.4); PHOSPHOROUS 3.7 mg/dL (2.5-4.9); POTASSIUM 4.1 mmol/L (3.5-5.1)
[2020-10-10] MEDS: HYDROGEN PEROXIDE 3% 118 ML BOTTLE TP SCH ×2 (07:39→21:29)
[2020-10-10 07:41] VITALS: BP 127/57
[2020-10-10 07:58] LABS: BASOPHILS % (AUTO) 0.3 % (0.0-2.0); EOSINOPHILS # (AUTO) 0.2 K/uL (0.0-0.7); EOSINOPHILS % (AUTO) 3.1 % (0.0-7.0); HEMATOCRIT 36.9 % (36.7-47.1); HEMOGLOBIN 12.7 g/dL (12.5-16.3); LYMPHOCYTES # (AUTO) 1.5 K/uL (20.0-40.0); LYMPHOCYTES % (AUTO) 25.6 % (20.5-51.5); MEAN CORPUSCULAR HEMOGLOBIN 30.4 uug (23.8-33.4); MEAN CORPUSCULAR HGB CONC 34 g/dL (32.5-36.3); MEAN CORPUSCULAR VOLUME 88.2 fL (73.0-96.2); MONOCYTES # (AUTO) 0.4 K/uL (2.0-10.0); MONOCYTES % (AUTO) 6.2 % (0.0-11.0); NEUTROPHILS # (AUTO) 3.9 K/uL (1.8-8.9); NEUTROPHILS % (AUTO) 64.8 % (38.5-71.5); PLATELET COUNT (AUTO) 186 K/uL (152-348); RED BLOOD CELL COUNT(AUTO) 4.19 MIL/uL (4.06-5.63)
[2020-10-10] MEDS: FINASTERIDE 5 MG TABLET GT SCH (08:19)
[2020-10-10] MEDS: DULOXETINE 20 MG CAPSULE.DR GT SCH (08:19)
[2020-10-10] MEDS: COD LIVER OIL/ZINC OXIDE OINT 113 GM TUBE TP SCH ×2 (08:19→20:28)
[2020-10-10] MEDS: VITAMINS A AND D OINT TP SCH (08:20)
[2020-10-10] MEDS: MULTIVIT, IRON, MIN NO. 8, FA TABLET GT SCH (20:28)
[2020-10-10 20:48] VITALS: BP 111/60
[2020-10-11] MEDS: PANTOPRAZOLE ORAL SUSPENSION 40 MG SUSPDR.PKT GT SCH (06:02)
--- NOTE | 2020-10-11 07:20 | NUR ---
PT PLACED ON WEANING PARAMETERS - CPAP 5, PS 10, FIO2 28%. ABG TO BE DONE IN 30 MINUTES. PT APPEARS TO BE TOLERATING AT THIS TIME. NO S/S OF RESPIRATORY DISTRESS NOTED AT THIS TIME. WILL CONTINUE TO MONITOR. RSBI - 50. AMBU BAG AND BACK UP TRACH ARE AT BEDSIDE.
[2020-10-11 07:56] VITALS: BP 127/67
[2020-10-11] MEDS: DULOXETINE 20 MG CAPSULE.DR GT SCH (08:13)
[2020-10-11] MEDS: VITAMINS A AND D OINT TP SCH (08:13)
[2020-10-11] MEDS: COD LIVER OIL/ZINC OXIDE OINT 113 GM TUBE TP SCH ×2 (08:13→21:00)
[2020-10-11] MEDS: FINASTERIDE 5 MG TABLET GT SCH (08:13)
[2020-10-11] MEDS: HYDROGEN PEROXIDE 3% 118 ML BOTTLE TP SCH ×2 (09:25→19:14)
--- NOTE | 2020-10-11 13:14 | NUR ---
Seen by Nichole ARMENTA, notified of pt's condition, abg, cxr results, patient tolerated weaning trial, new order given to continue weaning in am with cool aerosol for 2hrs, abg after.
--- NOTE | 2020-10-11 16:22 | NUR ---
notified of patient's condition, won weaning trials, covid19 will be done today, requested to be call her only if results are positive.
[2020-10-11 16:51] LABS: ABG BASE EXCESS 0.5 mmol/L; ABG HCO3 25.6 mmol/L; ABG PH 7.392 (7.350-7.450); ABG PO2 152.4 mmHg (75.0-100.0); ABG SITE LEFT BRACHIAL; ABG TOTAL HEMOGLOBIN 12.1 G/dL (13.5-18.0); CPAP,BG 5 cmH20; MetHb 0.1 % (0.0-1.5); VENT MODE VENT - CPAP
[2020-10-11 20:03] VITALS: BP 136/60
[2020-10-11] MEDS: MULTIVIT, IRON, MIN NO. 8, FA TABLET GT SCH (21:00)
[2020-10-12] MEDS: JEVITY 1.2 1000 ML LIQUID GT PRN ×2 (00:57→14:00)
[2020-10-12] MEDS: PANTOPRAZOLE ORAL SUSPENSION 40 MG SUSPDR.PKT GT SCH (06:00)
--- NOTE | 2020-10-12 06:13 | NUR ---
Per MD order pt placed on C/A FIO2-28%. No resp. distress noted at this time.
--- NOTE | 2020-10-12 06:35 | NUR ---
Patient is on weaning trials, RT placed patient on cool aerosol @ 28% Fi02 for 2 hours, no signs of any distress at this time, 02 sat @ 97%, will do ABG in after 2 hours of humidified oxygen. Will continue monitor patient.
[2020-10-12 06:50] VITALS: BP 100/55
--- NOTE | 2020-10-12 06:50 | NUR ---
Patient noted with work of breathing, 02 sat is 96% and is now 88%, suctioned with thin moderate yellow secretions, trach is intact and patent, ambubagged patient on 100%, 02 sat went up to 99%, RT at bed side, breathing treatment is now ongoing, patient is back on cool aerosol, 02 sat now is 98%, no SOB noted, will continue monitor.
--- NOTE | 2020-10-12 06:52 | NUR ---
Patient is now back on the vent, no signs of any distress at this time, will continue monitor.
[2020-10-12 07:00] VITALS: BP 100/54
[2020-10-12 07:36] VITALS: BP 110/86
[2020-10-12] MEDS: COD LIVER OIL/ZINC OXIDE OINT 113 GM TUBE TP SCH ×2 (08:00→21:29)
[2020-10-12] MEDS: VITAMINS A AND D OINT TP SCH (08:00)
[2020-10-12] MEDS: FINASTERIDE 5 MG TABLET GT SCH (08:00)
[2020-10-12] MEDS: DULOXETINE 20 MG CAPSULE.DR GT SCH (08:00)
[2020-10-12] MEDS: HYDROGEN PEROXIDE 3% 118 ML BOTTLE TP SCH ×2 (08:46→21:51)
[2020-10-12 10:01] LABS: ABG BASE EXCESS -1.6 mmol/L; ABG HCO3 26.9 mmol/L; ABG PCO2 63.8 mmHg (35.0-45.0); ABG PH 7.242 (7.350-7.450); ABG PO2 56.5 mmHg (75.0-100.0); ABG SITE LEFT BRACHIAL; ABG TOTAL HEMOGLOBIN 12.3 G/dL (13.5-18.0); MetHb 0.4 % (0.0-1.5); VENT MODE COOL AEROSOL
--- NOTE | 2020-10-12 12:00 | NUR ---
MELINA MCKEON WAS IN TO SEE PT , AWARE OF PATIENT'S ABG AND PATIENT NOT BEING ABLE TO TOLERATE WEANING TRIAL. NEW ORDERS RECEIVED AND CARRIED OUT.
--- NOTE | 2020-10-12 15:22 | NUR ---
INTERDISCIPLINARY PLAN OF CARE CONFERENCE was held today. Patient's was not able to participate in the IDT meeting. Dr. Trujillo and the Interdisciplinary Team reviewed the current plan of care in detail. Nursing reported on patient's medical condition. See nursing IDT conference notes. No major changes in medical condition were reported by nursing or by other disciplines. See all other disciplines IDT notes and physician's progress notes for additional details.
[2020-10-12 20:24] VITALS: BP 110/59
[2020-10-12] MEDS: MULTIVIT, IRON, MIN NO. 8, FA TABLET GT SCH (21:29)
[2020-10-13] MEDS: PANTOPRAZOLE ORAL SUSPENSION 40 MG SUSPDR.PKT GT SCH (06:04)
[2020-10-13] MEDS: JEVITY 1.2 1000 ML LIQUID GT PRN (06:04)
[2020-10-13] MEDS: HYDROGEN PEROXIDE 3% 118 ML BOTTLE TP SCH ×2 (07:19→21:37)
[2020-10-13 07:46] VITALS: BP 115/58
[2020-10-13] MEDS: DULOXETINE 20 MG CAPSULE.DR GT SCH (08:37)
[2020-10-13] MEDS: FINASTERIDE 5 MG TABLET GT SCH (08:37)
[2020-10-13] MEDS: VITAMINS A AND D OINT TP SCH (08:38)
[2020-10-13] MEDS: COD LIVER OIL/ZINC OXIDE OINT 113 GM TUBE TP SCH ×2 (08:38→21:18)
[2020-10-13] MEDS: NEOMY/BACITRA/POLYMYXIN B OINT UD PACKET TP SCH ×2 (10:14→21:18)
--- NOTE | 2020-10-13 15:00 | NUR ---
VIDEO CHAT DONE WITH PT'S .
--- NOTE | 2020-10-13 18:00 | NUR ---
Pt's notified regarding Covid 19 results negative.
--- NOTE | 2020-10-13 19:00 | NUR ---
Seen and examined by Dr Trujillo ,no new orders noted.
[2020-10-13 20:05] VITALS: BP 118/52
[2020-10-13] MEDS: MULTIVIT, IRON, MIN NO. 8, FA TABLET GT SCH (21:18)
[2020-10-14] MEDS: JEVITY 1.2 1000 ML LIQUID GT PRN (04:30)
[2020-10-14] MEDS: PANTOPRAZOLE ORAL SUSPENSION 40 MG SUSPDR.PKT GT SCH (05:49)
[2020-10-14 07:50] VITALS: BP 139/69
[2020-10-14] MEDS: FINASTERIDE 5 MG TABLET GT SCH (08:52)
[2020-10-14] MEDS: COD LIVER OIL/ZINC OXIDE OINT 113 GM TUBE TP SCH ×2 (08:52→20:27)
[2020-10-14] MEDS: DULOXETINE 20 MG CAPSULE.DR GT SCH (08:52)
[2020-10-14] MEDS: VITAMINS A AND D OINT TP SCH (09:00)
[2020-10-14] MEDS: NEOMY/BACITRA/POLYMYXIN B OINT UD PACKET TP SCH ×2 (09:00→20:27)
[2020-10-14] MEDS: HYDROGEN PEROXIDE 3% 118 ML BOTTLE TP SCH ×2 (09:40→20:52)
[2020-10-14 20:00] VITALS: BP 107/56
[2020-10-14] MEDS: MULTIVIT, IRON, MIN NO. 8, FA TABLET GT SCH (20:27)
[2020-10-15] MEDS: JEVITY 1.2 1000 ML LIQUID GT PRN ×2 (01:00→17:35)
[2020-10-15] MEDS: PANTOPRAZOLE ORAL SUSPENSION 40 MG SUSPDR.PKT GT SCH (05:43)
[2020-10-15 07:38] VITALS: BP 124/75
[2020-10-15] MEDS: COD LIVER OIL/ZINC OXIDE OINT 113 GM TUBE TP SCH ×2 (08:20→21:00)
[2020-10-15] MEDS: NEOMY/BACITRA/POLYMYXIN B OINT UD PACKET TP SCH ×2 (08:20→21:00)
[2020-10-15] MEDS: FINASTERIDE 5 MG TABLET GT SCH (08:20)
[2020-10-15] MEDS: DULOXETINE 20 MG CAPSULE.DR GT SCH (08:20)
[2020-10-15] MEDS: HYDROGEN PEROXIDE 3% 118 ML BOTTLE TP SCH ×2 (09:00→21:57)
[2020-10-15] MEDS: VITAMINS A AND D OINT TP SCH (09:00)
--- NOTE | 2020-10-15 11:00 | NUR ---
SEEN AND EXAMINED BY DR. APOORVA Hughes AND WITH BETHELO.
[2020-10-15 15:38] LABS: BASOPHILS % (AUTO) 0.3 % (0.0-2.0); EOSINOPHILS # (AUTO) 0.2 K/uL (0.0-0.7); EOSINOPHILS % (AUTO) 3.6 % (0.0-7.0); HEMATOCRIT 34.6 % (36.7-47.1); HEMOGLOBIN 11.7 g/dL (12.5-16.3); LYMPHOCYTES # (AUTO) 1.6 K/uL (20.0-40.0); LYMPHOCYTES % (AUTO) 29.9 % (20.5-51.5); MEAN CORPUSCULAR HEMOGLOBIN 29.8 uug (23.8-33.4); MEAN CORPUSCULAR HGB CONC 34 g/dL (32.5-36.3); MEAN CORPUSCULAR VOLUME 88.4 fL (73.0-96.2); MONOCYTES # (AUTO) 0.5 K/uL (2.0-10.0); MONOCYTES % (AUTO) 8.7 % (0.0-11.0); NEUTROPHILS # (AUTO) 3.2 K/uL (1.8-8.9); NEUTROPHILS % (AUTO) 57.5 % (38.5-71.5); PLATELET COUNT (AUTO) 175 K/uL (152-348); RED BLOOD CELL COUNT(AUTO) 3.92 MIL/uL (4.06-5.63); WHITE BLOOD COUNT (AUTO) 5.5 K/uL (3.6-10.2)
[2020-10-15 15:44] LABS: CREATININE 0.7 mg/dL (0.6-1.3); MAGNESIUM 1.9 mg/dL (1.8-2.4); PHOSPHOROUS 3.2 mg/dL (2.5-4.9); POTASSIUM 3.9 mmol/L (3.5-5.1)
[2020-10-15 19:26] VITALS: BP 135/57
[2020-10-15] MEDS: MULTIVIT, IRON, MIN NO. 8, FA TABLET GT SCH (21:00)
--- NOTE | 2020-10-16 02:00 | NUR ---
For COVID-19 testing as per [facility] requirement.
[2020-10-16] MEDS: PANTOPRAZOLE ORAL SUSPENSION 40 MG SUSPDR.PKT GT SCH (06:33)
[2020-10-16] MEDS: HYDROGEN PEROXIDE 3% 118 ML BOTTLE TP SCH ×2 (07:20→21:00)
[2020-10-16] MEDS: DULOXETINE 20 MG CAPSULE.DR GT SCH (08:53)
[2020-10-16] MEDS: FINASTERIDE 5 MG TABLET GT SCH (08:54)
[2020-10-16] MEDS: COD LIVER OIL/ZINC OXIDE OINT 113 GM TUBE TP SCH ×2 (08:55→20:10)
[2020-10-16] MEDS: VITAMINS A AND D OINT TP SCH (09:00)
[2020-10-16] MEDS: NEOMY/BACITRA/POLYMYXIN B OINT UD PACKET TP SCH ×2 (09:00→20:10)
[2020-10-16] MEDS: JEVITY 1.2 1000 ML LIQUID GT PRN (12:06)
[2020-10-16 19:35] VITALS: BP 119/46
[2020-10-16] MEDS: MULTIVIT, IRON, MIN NO. 8, FA TABLET GT SCH (20:10)
[2020-10-17] MEDS: PANTOPRAZOLE ORAL SUSPENSION 40 MG SUSPDR.PKT GT SCH (05:21)
[2020-10-17] MEDS: JEVITY 1.2 1000 ML LIQUID GT PRN (05:21)
[2020-10-17 07:58] VITALS: BP 122/65
[2020-10-17] MEDS: HYDROGEN PEROXIDE 3% 118 ML BOTTLE TP SCH ×2 (08:09→21:20)
[2020-10-17] MEDS: COD LIVER OIL/ZINC OXIDE OINT 113 GM TUBE TP SCH ×2 (08:48→21:01)
[2020-10-17] MEDS: FINASTERIDE 5 MG TABLET GT SCH (08:48)
[2020-10-17] MEDS: DULOXETINE 20 MG CAPSULE.DR GT SCH (08:48)
[2020-10-17] MEDS: VITAMINS A AND D OINT TP SCH (08:49)
[2020-10-17] MEDS: NEOMY/BACITRA/POLYMYXIN B OINT UD PACKET TP SCH ×2 (08:49→21:02)
--- NOTE | 2020-10-17 15:20 | NUR ---
PT. HAD ZOOM WITH HIS X 5 MIN.
--- NOTE | 2020-10-17 17:10 | NUR ---
PT'S AWARE OF NEGATIVE RESULT FOR COVID 19 TEST.
[2020-10-17 19:28] VITALS: BP 129/51
[2020-10-17] MEDS: MULTIVIT, IRON, MIN NO. 8, FA TABLET GT SCH (21:01)
[2020-10-18] MEDS: JEVITY 1.2 1000 ML LIQUID GT PRN ×2 (01:21→23:41)
[2020-10-18] MEDS: PANTOPRAZOLE ORAL SUSPENSION 40 MG SUSPDR.PKT GT SCH (06:12)
[2020-10-18 07:36] VITALS: BP 124/51
[2020-10-18] MEDS: COD LIVER OIL/ZINC OXIDE OINT 113 GM TUBE TP SCH ×2 (08:15→21:07)
[2020-10-18] MEDS: VITAMINS A AND D OINT TP SCH (08:15)
[2020-10-18] MEDS: FINASTERIDE 5 MG TABLET GT SCH (08:15)
[2020-10-18] MEDS: NEOMY/BACITRA/POLYMYXIN B OINT UD PACKET TP SCH ×2 (08:15→21:07)
[2020-10-18] MEDS: DULOXETINE 20 MG CAPSULE.DR GT SCH (08:15)
[2020-10-18] MEDS: HYDROGEN PEROXIDE 3% 118 ML BOTTLE TP SCH ×2 (08:32→21:20)
--- NOTE | 2020-10-18 13:36 | NUR ---
SEEN AND EXAMINED BY CLAYTON Barclay AND WITH BETHELO.
[2020-10-18 20:11] VITALS: BP 115/46
[2020-10-18] MEDS: MULTIVIT, IRON, MIN NO. 8, FA TABLET GT SCH (21:07)
[2020-10-18 22:32] VITALS: BP 115/46
[2020-10-19] MEDS: PANTOPRAZOLE ORAL SUSPENSION 40 MG SUSPDR.PKT GT SCH (05:28)
[2020-10-19 07:28] VITALS: BP 134/56
[2020-10-19] MEDS: VITAMINS A AND D OINT TP SCH (09:00)
[2020-10-19] MEDS: HYDROGEN PEROXIDE 3% 118 ML BOTTLE TP SCH ×2 (09:00→21:05)
[2020-10-19] MEDS: COD LIVER OIL/ZINC OXIDE OINT 113 GM TUBE TP SCH ×2 (09:00→20:26)
[2020-10-19] MEDS: DULOXETINE 20 MG CAPSULE.DR GT SCH (09:00)
[2020-10-19] MEDS: FINASTERIDE 5 MG TABLET GT SCH (09:00)
[2020-10-19] MEDS: NEOMY/BACITRA/POLYMYXIN B OINT UD PACKET TP SCH ×2 (09:00→20:26)
--- NOTE | 2020-10-19 13:55 | NUR ---
Seen and examined by Dr egan ,no new orders.
--- NOTE | 2020-10-19 14:20 | NUR ---
Seen and examined by Nichole Norris,no new orders.
[2020-10-19 20:00] VITALS: BP 129/66
[2020-10-19] MEDS: MULTIVIT, IRON, MIN NO. 8, FA TABLET GT SCH (20:26)
[2020-10-19] MEDS: JEVITY 1.2 1000 ML LIQUID GT PRN (22:16)
[2020-10-20] MEDS: PANTOPRAZOLE ORAL SUSPENSION 40 MG SUSPDR.PKT GT SCH (05:27)
[2020-10-20 07:26] VITALS: BP 139/67
[2020-10-20] MEDS: DULOXETINE 20 MG CAPSULE.DR GT SCH (08:51)
[2020-10-20] MEDS: FINASTERIDE 5 MG TABLET GT SCH (08:51)
[2020-10-20] MEDS: COD LIVER OIL/ZINC OXIDE OINT 113 GM TUBE TP SCH ×2 (08:52→20:41)
[2020-10-20] MEDS: VITAMINS A AND D OINT TP SCH (08:52)
[2020-10-20] MEDS: HYDROGEN PEROXIDE 3% 118 ML BOTTLE TP SCH ×2 (09:46→21:20)
[2020-10-20 20:00] VITALS: BP 125/71
[2020-10-20] MEDS: MULTIVIT, IRON, MIN NO. 8, FA TABLET GT SCH (20:41)
[2020-10-20] MEDS: ACETAMINOPHEN 650 MG/20 ML UDC- SA PATIENTS-PAIN ONLY GT PRN (20:44)
[2020-10-21] MEDS: JEVITY 1.2 1000 ML LIQUID GT PRN ×2 (01:00→22:22)
[2020-10-21] MEDS: PANTOPRAZOLE ORAL SUSPENSION 40 MG SUSPDR.PKT GT SCH (06:25)
[2020-10-21] MEDS: HYDROGEN PEROXIDE 3% 118 ML BOTTLE TP SCH ×2 (07:40→21:00)
[2020-10-21 07:41] VITALS: BP 134/68
[2020-10-21] MEDS: VITAMINS A AND D OINT TP SCH (08:50)
[2020-10-21] MEDS: FINASTERIDE 5 MG TABLET GT SCH (08:50)
[2020-10-21] MEDS: COD LIVER OIL/ZINC OXIDE OINT 113 GM TUBE TP SCH ×2 (08:50→21:00)
[2020-10-21] MEDS: DULOXETINE 20 MG CAPSULE.DR GT SCH (08:50)
[2020-10-21 20:00] VITALS: BP 134/68
[2020-10-21] MEDS: MULTIVIT, IRON, MIN NO. 8, FA TABLET GT SCH (21:00)
[2020-10-22] MEDS: PANTOPRAZOLE ORAL SUSPENSION 40 MG SUSPDR.PKT GT SCH (05:45)
[2020-10-22] MEDS: HYDROGEN PEROXIDE 3% 118 ML BOTTLE TP SCH ×2 (07:16→21:21)
[2020-10-22 07:41] VITALS: BP 130/58
[2020-10-22] MEDS: DULOXETINE 20 MG CAPSULE.DR GT SCH (08:26)
[2020-10-22] MEDS: VITAMINS A AND D OINT TP SCH (08:27)
[2020-10-22] MEDS: FINASTERIDE 5 MG TABLET GT SCH (08:27)
[2020-10-22] MEDS: COD LIVER OIL/ZINC OXIDE OINT 113 GM TUBE TP SCH ×2 (08:27→21:06)
[2020-10-22] MEDS: JEVITY 1.2 1000 ML LIQUID GT PRN (17:12)
[2020-10-22 20:03] VITALS: BP 122/76
[2020-10-22] MEDS: MULTIVIT, IRON, MIN NO. 8, FA TABLET GT SCH (21:06)
[2020-10-23] MEDS: PANTOPRAZOLE ORAL SUSPENSION 40 MG SUSPDR.PKT GT SCH (05:50)
[2020-10-23] MEDS: HYDROGEN PEROXIDE 3% 118 ML BOTTLE TP SCH ×2 (07:48→21:00)
[2020-10-23 07:54] VITALS: BP 103/48
[2020-10-23] MEDS: FINASTERIDE 5 MG TABLET GT SCH (08:43)
[2020-10-23] MEDS: DULOXETINE 20 MG CAPSULE.DR GT SCH (08:43)
[2020-10-23] MEDS: COD LIVER OIL/ZINC OXIDE OINT 113 GM TUBE TP SCH ×2 (08:43→20:55)
[2020-10-23] MEDS: VITAMINS A AND D OINT TP SCH (08:43)
[2020-10-23] MEDS: JEVITY 1.2 1000 ML LIQUID GT PRN (17:04)
[2020-10-23 20:20] VITALS: BP 108/53
[2020-10-23] MEDS: ACETAMINOPHEN 650 MG/20 ML UDC- SA PATIENTS-PAIN ONLY GT PRN (20:55)
[2020-10-23] MEDS: MULTIVIT, IRON, MIN NO. 8, FA TABLET GT SCH (20:55)
[2020-10-24] MEDS: ACETAMINOPHEN 650 MG/20 ML UDC- SA PATIENTS-PAIN ONLY GT PRN (04:27)
[2020-10-24] MEDS: POLYVINYL ALCOHOL OPHT DROPS 15 ML BOTTLE EACHEYE PRN (04:28)
[2020-10-24] MEDS: PANTOPRAZOLE ORAL SUSPENSION 40 MG SUSPDR.PKT GT SCH (06:00)
[2020-10-24 07:28] VITALS: BP 104/68
[2020-10-24] MEDS: HYDROGEN PEROXIDE 3% 118 ML BOTTLE TP SCH ×2 (07:28→19:42)
[2020-10-24] MEDS: JEVITY 1.2 1000 ML LIQUID GT PRN ×2 (08:20→12:16)
[2020-10-24] MEDS: VITAMINS A AND D OINT TP SCH (09:25)
[2020-10-24] MEDS: FINASTERIDE 5 MG TABLET GT SCH (09:25)
[2020-10-24] MEDS: DULOXETINE 20 MG CAPSULE.DR GT SCH (09:25)
[2020-10-24] MEDS: COD LIVER OIL/ZINC OXIDE OINT 113 GM TUBE TP SCH ×2 (09:25→21:00)
--- NOTE | 2020-10-24 16:00 | NUR ---
Zoom provided with Pt and .
[2020-10-24 19:50] VITALS: BP 143/50
[2020-10-24] MEDS: MULTIVIT, IRON, MIN NO. 8, FA TABLET GT SCH (21:00)
[2020-10-25] MEDS: PANTOPRAZOLE ORAL SUSPENSION 40 MG SUSPDR.PKT GT SCH (06:16)
[2020-10-25] MEDS: JEVITY 1.2 1000 ML LIQUID GT PRN (06:58)
[2020-10-25 07:29] VITALS: BP 125/45
[2020-10-25] MEDS: COD LIVER OIL/ZINC OXIDE OINT 113 GM TUBE TP SCH ×2 (08:29→21:58)
[2020-10-25] MEDS: VITAMINS A AND D OINT TP SCH (08:29)
[2020-10-25] MEDS: DULOXETINE 20 MG CAPSULE.DR GT SCH (08:29)
[2020-10-25] MEDS: FINASTERIDE 5 MG TABLET GT SCH (08:29)
[2020-10-25] MEDS: HYDROGEN PEROXIDE 3% 118 ML BOTTLE TP SCH ×2 (09:10→21:27)
--- NOTE | 2020-10-25 10:14 | NUR ---
notified result for covid19 test (negative).
[2020-10-25 20:08] VITALS: BP 123/60
[2020-10-25] MEDS: MULTIVIT, IRON, MIN NO. 8, FA TABLET GT SCH (21:58)
[2020-10-26] MEDS: JEVITY 1.2 1000 ML LIQUID GT PRN (01:24)
[2020-10-26] MEDS: PANTOPRAZOLE ORAL SUSPENSION 40 MG SUSPDR.PKT GT SCH (06:11)
[2020-10-26 07:35] VITALS: BP 143/73
[2020-10-26] MEDS: HYDROGEN PEROXIDE 3% 118 ML BOTTLE TP SCH ×2 (07:54→21:00)
[2020-10-26] MEDS: FINASTERIDE 5 MG TABLET GT SCH (09:05)
[2020-10-26] MEDS: DULOXETINE 20 MG CAPSULE.DR GT SCH (09:05)
[2020-10-26] MEDS: COD LIVER OIL/ZINC OXIDE OINT 113 GM TUBE TP SCH ×2 (09:06→20:29)
[2020-10-26] MEDS: VITAMINS A AND D OINT TP SCH (09:06)
--- NOTE | 2020-10-26 13:00 | NUR ---
Seen and examined by Nichole Norris,no new orders noted.
[2020-10-26] MEDS: ONDANSETRON HCL 4 MG TABLET GT PRN (15:51)
[2020-10-26] MEDS: MULTIVIT, IRON, MIN NO. 8, FA TABLET GT SCH (20:29)
[2020-10-26 22:56] VITALS: BP 96/48
[2020-10-27] MEDS: JEVITY 1.2 1000 ML LIQUID GT PRN (03:09)
[2020-10-27] MEDS: PANTOPRAZOLE ORAL SUSPENSION 40 MG SUSPDR.PKT GT SCH (05:17)
[2020-10-27 07:49] VITALS: BP 123/85
[2020-10-27] MEDS: VITAMINS A AND D OINT TP SCH (08:35)
[2020-10-27] MEDS: COD LIVER OIL/ZINC OXIDE OINT 113 GM TUBE TP SCH ×2 (08:35→21:13)
[2020-10-27] MEDS: FINASTERIDE 5 MG TABLET GT SCH (08:35)
[2020-10-27] MEDS: DULOXETINE 20 MG CAPSULE.DR GT SCH (08:35)
[2020-10-27] MEDS: HYDROGEN PEROXIDE 3% 118 ML BOTTLE TP SCH ×2 (09:10→21:37)
[2020-10-27] MEDS: ONDANSETRON HCL 4 MG TABLET GT PRN (14:30)
[2020-10-27 20:12] VITALS: BP 140/74
[2020-10-27 20:46] VITALS: BP 140/74
[2020-10-27] MEDS: MULTIVIT, IRON, MIN NO. 8, FA TABLET GT SCH (21:13)
[2020-10-28] MEDS: JEVITY 1.2 1000 ML LIQUID GT PRN ×2 (00:30→17:46)
[2020-10-28] MEDS: PANTOPRAZOLE ORAL SUSPENSION 40 MG SUSPDR.PKT GT SCH (06:13)
[2020-10-28 07:55] VITALS: BP 117/70
[2020-10-28] MEDS: DULOXETINE 20 MG CAPSULE.DR GT SCH (08:00)
[2020-10-28] MEDS: COD LIVER OIL/ZINC OXIDE OINT 113 GM TUBE TP SCH ×2 (08:00→20:23)
[2020-10-28] MEDS: FINASTERIDE 5 MG TABLET GT SCH (08:00)
[2020-10-28] MEDS: VITAMINS A AND D OINT TP SCH (09:00)
[2020-10-28] MEDS: HYDROGEN PEROXIDE 3% 118 ML BOTTLE TP SCH ×2 (09:10→21:05)
--- NOTE | 2020-10-28 12:32 | NUR ---
Spoke with Pt's Bobby Paul. Verbal consent given by Bobby Paul for patient to receive COVID 19 Vaccine.
[2020-10-28 20:09] VITALS: BP 116/51
[2020-10-28] MEDS: MULTIVIT, IRON, MIN NO. 8, FA TABLET GT SCH (20:23)
[2020-10-29] MEDS: PANTOPRAZOLE ORAL SUSPENSION 40 MG SUSPDR.PKT GT SCH (06:07)
[2020-10-29 07:55] VITALS: BP 116/51
[2020-10-29] MEDS: HYDROGEN PEROXIDE 3% 118 ML BOTTLE TP SCH ×2 (08:58→21:39)
[2020-10-29] MEDS: DULOXETINE 20 MG CAPSULE.DR GT SCH (09:41)
[2020-10-29] MEDS: FINASTERIDE 5 MG TABLET GT SCH (09:41)
[2020-10-29] MEDS: VITAMINS A AND D OINT TP SCH (09:42)
[2020-10-29] MEDS: COD LIVER OIL/ZINC OXIDE OINT 113 GM TUBE TP SCH ×2 (09:42→21:26)
[2020-10-29] MEDS: JEVITY 1.2 1000 ML LIQUID GT PRN (12:36)
--- NOTE | 2020-10-29 14:30 | NUR ---
Video chat provided with pt's .
[2020-10-29 20:42] VITALS: BP 110/59
[2020-10-29 20:44] VITALS: BP 110/59
[2020-10-29] MEDS: MULTIVIT, IRON, MIN NO. 8, FA TABLET GT SCH (21:26)
[2020-10-30] MEDS: JEVITY 1.2 1000 ML LIQUID GT PRN (04:33)
[2020-10-30] MEDS: PANTOPRAZOLE ORAL SUSPENSION 40 MG SUSPDR.PKT GT SCH (05:21)
[2020-10-30] MEDS: HYDROGEN PEROXIDE 3% 118 ML BOTTLE TP SCH ×2 (07:39→21:10)
[2020-10-30 07:54] VITALS: BP 125/62
[2020-10-30] MEDS: FINASTERIDE 5 MG TABLET GT SCH (08:09)
[2020-10-30] MEDS: DULOXETINE 20 MG CAPSULE.DR GT SCH (08:09)
[2020-10-30] MEDS: COD LIVER OIL/ZINC OXIDE OINT 113 GM TUBE TP SCH ×2 (08:10→20:29)
[2020-10-30] MEDS: VITAMINS A AND D OINT TP SCH (08:10)
--- NOTE | 2020-10-30 16:45 | NUR ---
PT'S CLARICE WAS CALLED AND AWARE OF COVID 19 TEST WAS NEGATIVE FROM 10/28/20.
[2020-10-30 19:55] VITALS: BP 126/46
[2020-10-30] MEDS: MULTIVIT, IRON, MIN NO. 8, FA TABLET GT SCH (20:29)
[2020-10-31] MEDS: JEVITY 1.2 1000 ML LIQUID GT PRN ×2 (00:57→23:18)
[2020-10-31] MEDS: PANTOPRAZOLE ORAL SUSPENSION 40 MG SUSPDR.PKT GT SCH (06:05)
[2020-10-31 07:47] VITALS: BP 123/50
[2020-10-31] MEDS: FINASTERIDE 5 MG TABLET GT SCH (08:14)
[2020-10-31] MEDS: DULOXETINE 20 MG CAPSULE.DR GT SCH (08:14)
[2020-10-31] MEDS: VITAMINS A AND D OINT TP SCH (08:14)
[2020-10-31] MEDS: COD LIVER OIL/ZINC OXIDE OINT 113 GM TUBE TP SCH ×2 (08:14→20:17)
[2020-10-31] MEDS: HYDROGEN PEROXIDE 3% 118 ML BOTTLE TP SCH ×2 (09:21→20:34)
[2020-10-31] MEDS: MULTIVIT, IRON, MIN NO. 8, FA TABLET GT SCH (20:17)
[2020-10-31 20:46] VITALS: BP 126/58
[2020-11-01] MEDS: PANTOPRAZOLE ORAL SUSPENSION 40 MG SUSPDR.PKT GT SCH (06:15)
[2020-11-01] MEDS: HYDROGEN PEROXIDE 3% 118 ML BOTTLE TP SCH ×2 (07:20→21:52)
[2020-11-01 07:41] VITALS: BP 121/66
[2020-11-01] MEDS: VITAMINS A AND D OINT TP SCH (08:38)
[2020-11-01] MEDS: DULOXETINE 20 MG CAPSULE.DR GT SCH (08:38)
[2020-11-01] MEDS: COD LIVER OIL/ZINC OXIDE OINT 113 GM TUBE TP SCH ×2 (08:38→20:10)
[2020-11-01] MEDS: FINASTERIDE 5 MG TABLET GT SCH (08:38)
--- NOTE | 2020-11-01 12:50 | NUR ---
PT. WAS SEEN AND EXAMINED BY CLAYTNO Barclay AND WITH BETHELO.
[2020-11-01 20:02] VITALS: BP 132/69
[2020-11-01] MEDS: MULTIVIT, IRON, MIN NO. 8, FA TABLET GT SCH (20:10)
[2020-11-01] MEDS: JEVITY 1.2 1000 ML LIQUID GT PRN (20:15)
[2020-11-02] MEDS: PANTOPRAZOLE ORAL SUSPENSION 40 MG SUSPDR.PKT GT SCH (06:15)
[2020-11-02] MEDS: HYDROGEN PEROXIDE 3% 118 ML BOTTLE TP SCH ×2 (07:29→21:20)
[2020-11-02 07:36] VITALS: BP 126/62
[2020-11-02] MEDS: DULOXETINE 20 MG CAPSULE.DR GT SCH (08:33)
[2020-11-02] MEDS: FINASTERIDE 5 MG TABLET GT SCH (08:34)
[2020-11-02] MEDS: COD LIVER OIL/ZINC OXIDE OINT 113 GM TUBE TP SCH ×2 (08:35→20:32)
[2020-11-02] MEDS: VITAMINS A AND D OINT TP SCH (08:36)
[2020-11-02] MEDS: JEVITY 1.2 1000 ML LIQUID GT PRN (15:15)
--- NOTE | 2020-11-02 19:48 | NUR ---
New orders to Give COVID vaccine x 1 carried out.
[2020-11-02 20:23] VITALS: BP 136/60
[2020-11-02] MEDS: MULTIVIT, IRON, MIN NO. 8, FA TABLET GT SCH (20:32)
[2020-11-03] MEDS: PANTOPRAZOLE ORAL SUSPENSION 40 MG SUSPDR.PKT GT SCH (06:06)
[2020-11-03 07:41] VITALS: BP 129/40
[2020-11-03] MEDS: FINASTERIDE 5 MG TABLET GT SCH (08:04)
[2020-11-03] MEDS: COD LIVER OIL/ZINC OXIDE OINT 113 GM TUBE TP SCH ×2 (08:04→21:24)
[2020-11-03] MEDS: VITAMINS A AND D OINT TP SCH (08:04)
[2020-11-03] MEDS: DULOXETINE 20 MG CAPSULE.DR GT SCH (08:04)
[2020-11-03] MEDS: HYDROGEN PEROXIDE 3% 118 ML BOTTLE TP SCH ×2 (10:07→21:20)
[2020-11-03] MEDS: JEVITY 1.2 1000 ML LIQUID GT PRN (12:30)
--- NOTE | 2020-11-03 18:30 | NUR ---
PATIENT'S WAS NOTIFIED OF ADMINISTRATION OF COVID VACCINE, NO REACTIONS NOTED AT THIS TIME.
[2020-11-03 20:00] VITALS: BP 130/55
[2020-11-03] MEDS: MULTIVIT, IRON, MIN NO. 8, FA TABLET GT SCH (21:24)
[~2020-11-04] VITALS: Ht 185.4 cm; Wt 74.8 kg
--- NOTE | 2020-11-04 02:55 | NUR ---
S/P COVID-19 vaccination, afebrile, no adverse reaction noted. Site without redness/swelling. Continue to monitor.
[2020-11-04] MEDS: PANTOPRAZOLE ORAL SUSPENSION 40 MG SUSPDR.PKT GT SCH (06:53)
[2020-11-04] MEDS: HYDROGEN PEROXIDE 3% 118 ML BOTTLE TP SCH ×2 (07:15→18:38)
[2020-11-04] MEDS: JEVITY 1.2 1000 ML LIQUID GT PRN ×2 (07:40→22:55)
[2020-11-04 08:00] VITALS: BP 126/72
[2020-11-04] MEDS: COD LIVER OIL/ZINC OXIDE OINT 113 GM TUBE TP SCH ×2 (08:29→21:00)
[2020-11-04] MEDS: DULOXETINE 20 MG CAPSULE.DR GT SCH (08:29)
[2020-11-04] MEDS: FINASTERIDE 5 MG TABLET GT SCH (08:29)
[2020-11-04] MEDS: VITAMINS A AND D OINT TP SCH (08:29)
--- NOTE | 2020-11-04 19:13 | NUR ---
no rashes or adverse reaction from moderna covid vaccine observed.
[2020-11-04 20:19] VITALS: BP 130/52
[2020-11-04] MEDS: MULTIVIT, IRON, MIN NO. 8, FA TABLET GT SCH (21:00)
--- NOTE | 2020-11-04 23:30 | NUR ---
Patient is afebrile, no signs of any adverse reactions noted from the COVID-19 vaccine.
[~2020-11-04 23:59] MED LIST changes: +ACETAMINOPHEN 650 MG SUPP.RECT RC PRN; +ALBUTEROL SULFATE 2.5 MG/3 ML NEBU NEB PRN; +COD LIVER OIL/ZINC OXIDE OINT 113 GM TUBE TP PRN; +COVID-19 VACC,MRNA(MODERNA)/PF 100 MCG/0.5 ML VIAL IM ONE; +DIATR MEGLU/DIATRIZOATE SODIUM 30 ML BOTTLE ONE; +DIATR MEGLU/DIATRIZOATE SODIUM 30 ML BOTTLE PO ONE; +DULOXETINE 20 MG CAPSULE.DR PO SCH; +HEPARIN SODIUM,PORCINE 5,000 UNITS/ML VIAL SQ SCH; +HYDROCODONE/APAP 10-325 MG TABLET PO ONE; +HYDROGEN PEROXIDE 3% 118 ML BOTTLE TP PRN; +INFLUENZA VACCINE 2020-2021 0.5 ML DISP.SYRIN IM ONE; +IPRATROPIUM BROMIDE 0.5 MG/2.5 ML NEBU NEB PRN; +MEROPENEM 0.5 G in IV NORMAL SALINE 50 ML IV SCH; +MODAFINIL 100 MG TABLET PO ONE; +MORPHINE SULFATE 2 MG/1 ML DISP.SYRIN IV ONE; +ONDANSETRON HCL 4 MG TABLET GT PRN; +POTASSIUM CHLORIDE 10 MEQ TAB.PRT.SR XX ONE; +SODIUM POLYSTYRENE SULFONATE 15 G/60 ML LIQUID UDC GT ONE; +TUBERCULIN,PURIF.PROT.DERIV. 5 TU/0.1 ML TEST ID ONE; +VANCOMYCIN IV 1,000 MG in IV DEXTROSE 5% 250 ML IV ONE; +VANCOMYCIN IV 1,000 MG in IV DEXTROSE 5% 250 ML IV SCH
[2020-11-05] MEDS: PANTOPRAZOLE ORAL SUSPENSION 40 MG SUSPDR.PKT GT SCH (05:27)
[2020-11-05 07:53] VITALS: BP 122/74
[2020-11-05] MEDS: FINASTERIDE 5 MG TABLET GT SCH (08:23)
[2020-11-05] MEDS: COD LIVER OIL/ZINC OXIDE OINT 113 GM TUBE TP SCH ×2 (08:23→20:27)
[2020-11-05] MEDS: VITAMINS A AND D OINT TP SCH (08:23)
[2020-11-05] MEDS: DULOXETINE 20 MG CAPSULE.DR GT SCH (08:23)
[2020-11-05] MEDS: HYDROGEN PEROXIDE 3% 118 ML BOTTLE TP SCH ×2 (09:00→21:49)
[2020-11-05] MEDS: JEVITY 1.2 1000 ML LIQUID GT PRN (17:48)
--- NOTE | 2020-11-05 17:55 | NUR ---
Patient remains afebrile, no signs of any adverse reactions noted from the COVID-19 vaccine.
[2020-11-05 19:28] VITALS: BP 122/54
[2020-11-05] MEDS: MULTIVIT, IRON, MIN NO. 8, FA TABLET GT SCH (20:27)
--- NOTE | 2020-11-05 23:08 | NUR ---
Patient is afebrile, no signs of adverse effects from Covid-19 vaccine.
[2020-11-06] MEDS: PANTOPRAZOLE ORAL SUSPENSION 40 MG SUSPDR.PKT GT SCH (05:27)
[2020-11-06 08:00] VITALS: BP 115/70
[2020-11-06] MEDS: DULOXETINE 20 MG CAPSULE.DR GT SCH (08:07)
[2020-11-06] MEDS: COD LIVER OIL/ZINC OXIDE OINT 113 GM TUBE TP SCH ×2 (08:07→20:39)
[2020-11-06] MEDS: FINASTERIDE 5 MG TABLET GT SCH (08:07)
[2020-11-06] MEDS: VITAMINS A AND D OINT TP SCH (08:07)
[2020-11-06] MEDS: HYDROGEN PEROXIDE 3% 118 ML BOTTLE TP SCH ×2 (09:00→21:00)
[2020-11-06] MEDS: JEVITY 1.2 1000 ML LIQUID GT PRN (11:35)
--- NOTE | 2020-11-06 18:53 | NUR ---
no adverse reaction noted to covid vaccine.
[2020-11-06 19:30] VITALS: BP 133/71
[2020-11-06] MEDS: MULTIVIT, IRON, MIN NO. 8, FA TABLET GT SCH (20:39)
[2020-11-07] MEDS: JEVITY 1.2 1000 ML LIQUID GT PRN ×2 (04:23→22:55)
[2020-11-07] MEDS: PANTOPRAZOLE ORAL SUSPENSION 40 MG SUSPDR.PKT GT SCH (05:39)
[2020-11-07 07:49] VITALS: BP 119/60
[2020-11-07] MEDS: DULOXETINE 20 MG CAPSULE.DR GT SCH (08:34)
[2020-11-07] MEDS: COD LIVER OIL/ZINC OXIDE OINT 113 GM TUBE TP SCH ×2 (08:34→20:17)
[2020-11-07] MEDS: VITAMINS A AND D OINT TP SCH (08:34)
[2020-11-07] MEDS: FINASTERIDE 5 MG TABLET GT SCH (08:34)
[2020-11-07] MEDS: HYDROGEN PEROXIDE 3% 118 ML BOTTLE TP SCH ×2 (09:10→21:10)
[2020-11-07] MEDS: MULTIVIT, IRON, MIN NO. 8, FA TABLET GT SCH (20:17)
[2020-11-07 20:46] VITALS: BP 127/67
[2020-11-08] MEDS: PANTOPRAZOLE ORAL SUSPENSION 40 MG SUSPDR.PKT GT SCH (06:10)
[2020-11-08 07:37] VITALS: BP 117/44
== END | disposition still patient (30) | DRG 207 ==
LOC: SA 11-05
PROVIDERS: ADMIT Internal Medicine Nephrology; ATTEND Internal Medicine Nephrology
PROC: 5A1955Z Respiratory Ventilation, Greater than 96 Consecutive Hours (ICD-10-PCS; principal; 2020-06-28)
DX: J96.11 Chronic respiratory failure with hypoxia (principal); G93.41 Metabolic encephalopathy; Z68.1 Body mass index [BMI] 19.9 or less, adult; Z16.11 Resistance to penicillins; E87.1 Hypo-osmolality and hyponatremia; E46 Unspecified protein-calorie malnutrition; J98.11 Atelectasis; E87.4 Mixed disorder of acid-base balance; K94.23 Gastrostomy malfunction; J96.22 Acute and chronic respiratory failure with hypercapnia; E11.22 Type 2 diabetes mellitus with diabetic chronic kidney disease; E78.5 Hyperlipidemia, unspecified; F03.90 Unspecified dementia, unspecified severity, without behavioral disturbance, psychotic disturbance, mood disturbance, and anxiety; F31.9 Bipolar disorder, unspecified; Z93.0 Tracheostomy status; N18.9 Chronic kidney disease, unspecified; N40.0 Benign prostatic hyperplasia without lower urinary tract symptoms; R13.10 Dysphagia, unspecified; I25.2 Old myocardial infarction; I25.10 Atherosclerotic heart disease of native coronary artery without angina pectoris; Z79.4 Long term (current) use of insulin; G31.83 Neurocognitive disorder with Lewy bodies; F02.80 Dementia in other diseases classified elsewhere, unspecified severity, without behavioral disturbance, psychotic disturbance, mood disturbance, and anxiety; K02.9 Dental caries, unspecified; Z99.81 Dependence on supplemental oxygen; I12.9 Hypertensive chronic kidney disease with stage 1 through stage 4 chronic kidney disease, or unspecified chronic kidney disease; Z87.11 Personal history of peptic ulcer disease; M24.50 Contracture, unspecified joint; Z79.899 Other long term (current) drug therapy; Z86.14 Personal history of Methicillin resistant Staphylococcus aureus infection; Z87.01 Personal history of pneumonia (recurrent); Z87.440 Personal history of urinary (tract) infections; A60.00 Herpesviral infection of urogenital system, unspecified; B35.9 Dermatophytosis, unspecified; R60.0 Localized edema; S62.606A Fracture of unspecified phalanx of right little finger, initial encounter for closed fracture; X58.XXXA Exposure to other specified factors, initial encounter; Y93.9 Activity, unspecified; Y92.230 Patient room in hospital as the place of occurrence of the external cause
CPT/HCPCS: 36415; 36600; 71045; 73070; 73130; 74018; 83735; 84100; 85025; 85651; 85730; 86580; 87040; 87070; 87077; 87086; 90686; 94002; 94003; 94640; 94664; A4663; C1758; G0008; J0692; J0696; J1644; J1956; J2270; J2543; J3260; J3370; J3590; J7042; J7060; Q0162; Q9963; U0003

== ENCOUNTER → 2021-04-08 | Outpatient (CLI) | payer MEDICARE, MEDICAID ==
[~2021-04-08] MED LIST changes: -ACETAMINOPHEN 650 MG SUPP.RECT RC PRN; -ALBUTEROL SULFATE 2.5 MG/3 ML NEBU NEB PRN; +CARB-300 GT; -CARB-93 GT; -COD LIVER OIL/ZINC OXIDE OINT 113 GM TUBE TP PRN; -COVID-19 VACC,MRNA(MODERNA)/PF 100 MCG/0.5 ML VIAL IM ONE; -DIATR MEGLU/DIATRIZOATE SODIUM 30 ML BOTTLE ONE; -DIATR MEGLU/DIATRIZOATE SODIUM 30 ML BOTTLE PO ONE; -DULOXETINE 20 MG CAPSULE.DR PO SCH; -HEPARIN SODIUM,PORCINE 5,000 UNITS/ML VIAL SQ SCH; -HYDROCODONE/APAP 10-325 MG TABLET PO ONE; -HYDROGEN PEROXIDE 3% 118 ML BOTTLE TP PRN; -INFLUENZA VACCINE 2020-2021 0.5 ML DISP.SYRIN IM ONE; +IOHEXOL 300MG/ML 100 ML INFUS..BTL ONE; -IPRATROPIUM BROMIDE 0.5 MG/2.5 ML NEBU NEB PRN; +IV NORMAL SALINE 250 ML IV ONE; -MEROPENEM 0.5 G in IV NORMAL SALINE 50 ML IV SCH; -MODAFINIL 100 MG TABLET PO ONE; -MORPHINE SULFATE 2 MG/1 ML DISP.SYRIN IV ONE; -ONDANSETRON HCL 4 MG TABLET GT PRN; -POTASSIUM CHLORIDE 10 MEQ TAB.PRT.SR XX ONE; -SODIUM POLYSTYRENE SULFONATE 15 G/60 ML LIQUID UDC GT ONE; +SWABABLE VALVE TRANSFER SET EA MC ONE; -TUBERCULIN,PURIF.PROT.DERIV. 5 TU/0.1 ML TEST ID ONE; -VANCOMYCIN IV 1,000 MG in IV DEXTROSE 5% 250 ML IV ONE; -VANCOMYCIN IV 1,000 MG in IV DEXTROSE 5% 250 ML IV SCH
== END | disposition home or self-care (01) ==
LOC: RAD 16:05
PROVIDERS: ATTEND Internal Medicine Nephrology
DX: S32.029A Unspecified fracture of second lumbar vertebra, initial encounter for closed fracture (principal); I25.10 Atherosclerotic heart disease of native coronary artery without angina pectoris; J90 Pleural effusion, not elsewhere classified; J98.11 Atelectasis; N20.0 Calculus of kidney; N21.0 Calculus in bladder; N40.0 Benign prostatic hyperplasia without lower urinary tract symptoms; N43.3 Hydrocele, unspecified; M85.88 Other specified disorders of bone density and structure, other site; M47.816 Spondylosis without myelopathy or radiculopathy, lumbar region; M43.8X6 Other specified deforming dorsopathies, lumbar region; Z93.1 Gastrostomy status; X58.XXXA Exposure to other specified factors, initial encounter; Y93.89 Activity, other specified; Y92.89 Other specified places as the place of occurrence of the external cause; Y99.8 Other external cause status
CPT/HCPCS: 74177; Q9967; J7050

== ENCOUNTER 2021-08-25 16:42 | Outpatient (CLI) | payer MEDICARE, OTHER ==
[~2021-08-25 16:42] MED LIST changes: -IOHEXOL 300MG/ML 100 ML INFUS..BTL ONE; -IV NORMAL SALINE 250 ML IV ONE; -SWABABLE VALVE TRANSFER SET EA MC ONE
== END 2021-08-25 23:59 | disposition home or self-care (01) ==
LOC: CT 16:42
PROVIDERS: ATTEND Internal Medicine Nephrology
DX: S32.029A Unspecified fracture of second lumbar vertebra, initial encounter for closed fracture (principal); K80.20 Calculus of gallbladder without cholecystitis without obstruction; J98.11 Atelectasis; J90 Pleural effusion, not elsewhere classified; I70.0 Atherosclerosis of aorta; N20.0 Calculus of kidney; N28.1 Cyst of kidney, acquired; L89.229 Pressure ulcer of left hip, unspecified stage; X58.XXXA Exposure to other specified factors, initial encounter; Y93.89 Activity, other specified; Y92.89 Other specified places as the place of occurrence of the external cause; Y99.8 Other external cause status

== ENCOUNTER 2022-07-10 14:39 | Outpatient (CLI) | payer MEDICARE, MEDICAID | END 2022-07-10 23:59 | disposition home or self-care (01) | LOC: CT 14:39 | PROVIDERS: ATTEND Internal Medicine Nephrology | DX: N20.0 Calculus of kidney (principal); M79.89 Other specified soft tissue disorders; J90 Pleural effusion, not elsewhere classified; K56.41 Fecal impaction; K82.8 Other specified diseases of gallbladder; I70.0 Atherosclerosis of aorta; M51.36 Other intervertebral disc degeneration, lumbar region; M41.86 Other forms of scoliosis, lumbar region; M43.8X6 Other specified deforming dorsopathies, lumbar region; L02.91 Cutaneous abscess, unspecified | CPT/HCPCS: 74150 ==

== ENCOUNTER 2022-07-24 09:54 | Outpatient (CLI) | payer MEDICARE, OTHER | END 2022-07-24 23:59 | disposition home or self-care (01) | LOC: RAD 09:54 | PROVIDERS: ATTEND Internal Medicine Nephrology | DX: K63.89 Other specified diseases of intestine (principal); K56.41 Fecal impaction | CPT/HCPCS: 74270 ==

== ENCOUNTER 2022-11-05 | Inpatient (IN) | payer MEDICARE, MEDICAID ==
[~2022-11-05] VITALS: Ht 185.4 cm; Wt 77.1 kg
[2022-11-07] MEDS ORDERED: IPRATROPIUM BROMIDE 0.5 MG/2.5 ML NEBU NEB PRN (07:30)
[2022-11-07] MEDS ORDERED: HYDROGEN PEROXIDE 3% 118 ML BOTTLE TP PRN (07:30)
[2022-11-07] MEDS ORDERED: ONDANSETRON HCL 4 MG TABLET GT PRN (07:30)
[2022-11-07] MEDS ORDERED: ACETAMINOPHEN 650 MG/20 ML UDC- SA PATIENTS-FEVER ONLY GT PRN (07:30)
[2022-11-07] MEDS ORDERED: MAG HYDROX/AL HYDROX/SIMETH 30 ML LIQUID UDC GT PRN (07:30)
[2022-11-07] MEDS ORDERED: ALBUTEROL SULFATE 2.5 MG/3 ML NEBU NEB PRN (07:30)
[2022-11-07] MEDS ORDERED: REMEDY ESSENTIAL ZINC PASTE 113 GM TP PRN (07:30)
[2022-11-07] MEDS ORDERED: LOPERAMIDE HCL 1 MG/7.5 ML LIQUID GT PRN (07:30)
[2022-11-07 08:03] VITALS: TEMP 97.7
[2022-11-07] MEDS: NEOMY/BACITRA/POLYMYXIN B OINT UD PACKET TP SCH ×2 (08:33→22:00)
[2022-11-07] MEDS: FINASTERIDE 5 MG TABLET GT SCH (08:33)
[2022-11-07] MEDS: ASCORBIC ACID 500 MG TABLET GT SCH (08:33)
[2022-11-07] MEDS: VITAMINS A AND D OINT 42 GM TUBE TP SCH (08:33)
[2022-11-07] MEDS: DULOXETINE 20 MG CAPSULE.DR GT SCH (08:33)
[2022-11-07] MEDS: REMEDY ESSENTIAL ZINC PASTE 113 GM TP SCH ×2 (08:33→21:00)
[2022-11-07] MEDS: HYDROGEN PEROXIDE 3% 118 ML BOTTLE TP SCH ×2 (09:14→21:37)
[2022-11-07] MEDS: JEVITY 1.2 1000 ML LIQUID GT PRN (10:44)
[2022-11-07] MEDS: SIMETHICONE 80 MG TAB.CHEW GT SCH ×2 (12:00→17:05)
[2022-11-07] MEDS: BACLOFEN 10 MG TABLET GT SCH ×2 (14:08→22:58)
[2022-11-07] MEDS: NUTRISOURCE FIBER 4 GM PACKET GT SCH (17:05)
[2022-11-07] MEDS: ACIDOPHILUS/BULGARICUS CHEW TAB GT SCH (17:05)
[2022-11-07 20:56] VITALS: TEMP 98.9
[2022-11-07] MEDS: MULTIVIT, IRON, MIN NO. 8, FA TABLET GT SCH (21:00)
[2022-11-07] MEDS: PROTEIN SUPPLEMENT (PROSTAT) 30 ML LIQUID GT SCH (21:00)
[2022-11-08] MEDS: BACLOFEN 10 MG TABLET GT SCH ×3 (05:09→22:59)
[2022-11-08] MEDS: OMEPRAZOLE 20 MG CAPSULE.DR GT SCH (05:09)
[2022-11-08] MEDS: NUTRISOURCE FIBER 4 GM PACKET GT SCH ×2 (05:09→17:28)
[2022-11-08] MEDS: SIMETHICONE 80 MG TAB.CHEW GT SCH ×4 (05:09→17:28)
[2022-11-08] MEDS: ACIDOPHILUS/BULGARICUS CHEW TAB GT SCH ×2 (05:09→17:28)
[2022-11-08 07:39] VITALS: TEMP 97.7
[2022-11-08] MEDS: HYDROGEN PEROXIDE 3% 118 ML BOTTLE TP SCH ×2 (09:00→19:36)
[2022-11-08] MEDS: VITAMINS A AND D OINT 42 GM TUBE TP SCH (09:31)
[2022-11-08] MEDS: FINASTERIDE 5 MG TABLET GT SCH (09:31)
[2022-11-08] MEDS: ASCORBIC ACID 500 MG TABLET GT SCH (09:31)
[2022-11-08] MEDS: REMEDY ESSENTIAL ZINC PASTE 113 GM TP SCH ×2 (09:31→20:03)
[2022-11-08] MEDS: DULOXETINE 20 MG CAPSULE.DR GT SCH (09:31)
[2022-11-08] MEDS: NEOMY/BACITRA/POLYMYXIN B OINT UD PACKET TP SCH ×2 (09:31→20:03)
[2022-11-08] MEDS: MULTIVIT, IRON, MIN NO. 8, FA TABLET GT SCH (20:03)
[2022-11-08] MEDS: PROTEIN SUPPLEMENT (PROSTAT) 30 ML LIQUID GT SCH (20:03)
[2022-11-08 20:15] VITALS: TEMP 97.5
[2022-11-09] MEDS: SIMETHICONE 80 MG TAB.CHEW GT SCH ×5 (00:45→23:25)
[2022-11-09] MEDS: JEVITY 1.2 1000 ML LIQUID GT PRN ×2 (00:56→20:34)
[2022-11-09] MEDS: OMEPRAZOLE 20 MG CAPSULE.DR GT SCH (06:43)
[2022-11-09] MEDS: BACLOFEN 10 MG TABLET GT SCH ×3 (06:43→22:00)
[2022-11-09] MEDS: ACIDOPHILUS/BULGARICUS CHEW TAB GT SCH ×2 (06:43→18:10)
[2022-11-09] MEDS: NUTRISOURCE FIBER 4 GM PACKET GT SCH ×2 (06:43→18:10)
[2022-11-09 07:56] VITALS: TEMP 98.4
[2022-11-09] MEDS: FINASTERIDE 5 MG TABLET GT SCH (08:14)
[2022-11-09] MEDS: REMEDY ESSENTIAL ZINC PASTE 113 GM TP SCH ×2 (08:14→20:32)
[2022-11-09] MEDS: NEOMY/BACITRA/POLYMYXIN B OINT UD PACKET TP SCH ×2 (08:14→20:32)
[2022-11-09] MEDS: ASCORBIC ACID 500 MG TABLET GT SCH (08:14)
[2022-11-09] MEDS: DULOXETINE 20 MG CAPSULE.DR GT SCH (08:14)
[2022-11-09] MEDS: VITAMINS A AND D OINT 42 GM TUBE TP SCH (08:15)
[2022-11-09] MEDS: HYDROGEN PEROXIDE 3% 118 ML BOTTLE TP SCH ×2 (09:50→21:38)
[2022-11-09 20:00] VITALS: TEMP 97.8
[2022-11-09] MEDS: PROTEIN SUPPLEMENT (PROSTAT) 30 ML LIQUID GT SCH (20:32)
[2022-11-09] MEDS: MULTIVIT, IRON, MIN NO. 8, FA TABLET GT SCH (20:32)
[2022-11-10] MEDS: SIMETHICONE 80 MG TAB.CHEW GT SCH ×3 (06:06→17:14)
[2022-11-10] MEDS: BACLOFEN 10 MG TABLET GT SCH ×3 (06:06→21:05)
[2022-11-10] MEDS: ACIDOPHILUS/BULGARICUS CHEW TAB GT SCH ×2 (06:06→17:14)
[2022-11-10] MEDS: NUTRISOURCE FIBER 4 GM PACKET GT SCH ×2 (06:07→17:14)
[2022-11-10] MEDS: OMEPRAZOLE 20 MG CAPSULE.DR GT SCH (06:07)
[2022-11-10 07:58] VITALS: TEMP 98.5
[2022-11-10] MEDS: DULOXETINE 20 MG CAPSULE.DR GT SCH (08:43)
[2022-11-10] MEDS: FINASTERIDE 5 MG TABLET GT SCH (08:43)
[2022-11-10] MEDS: ASCORBIC ACID 500 MG TABLET GT SCH (08:43)
[2022-11-10] MEDS: REMEDY ESSENTIAL ZINC PASTE 113 GM TP SCH ×2 (09:00→20:58)
[2022-11-10] MEDS: NEOMY/BACITRA/POLYMYXIN B OINT UD PACKET TP SCH ×2 (09:00→20:58)
[2022-11-10] MEDS: VITAMINS A AND D OINT 42 GM TUBE TP SCH (09:00)
[2022-11-10] MEDS: HYDROGEN PEROXIDE 3% 118 ML BOTTLE TP SCH ×2 (09:12→21:45)
[2022-11-10] MEDS: HARRIS FLUSH ENEMA PR PRN (09:26)
[2022-11-10 20:00] VITALS: TEMP 98
[2022-11-10] MEDS: PROTEIN SUPPLEMENT (PROSTAT) 30 ML LIQUID GT SCH (20:57)
[2022-11-10] MEDS: MULTIVIT, IRON, MIN NO. 8, FA TABLET GT SCH (20:58)
[2022-11-11] MEDS: ACIDOPHILUS/BULGARICUS CHEW TAB GT SCH ×2 (05:10→17:13)
[2022-11-11] MEDS: SIMETHICONE 80 MG TAB.CHEW GT SCH ×4 (05:11→17:13)
[2022-11-11] MEDS: BACLOFEN 10 MG TABLET GT SCH ×3 (05:11→22:31)
[2022-11-11] MEDS: NUTRISOURCE FIBER 4 GM PACKET GT SCH ×2 (05:11→17:13)
[2022-11-11] MEDS: OMEPRAZOLE 20 MG CAPSULE.DR GT SCH (05:12)
[2022-11-11 07:36] VITALS: TEMP 98.7
[2022-11-11] MEDS: FINASTERIDE 5 MG TABLET GT SCH (08:33)
[2022-11-11] MEDS: VITAMINS A AND D OINT 42 GM TUBE TP SCH (08:33)
[2022-11-11] MEDS: REMEDY ESSENTIAL ZINC PASTE 113 GM TP SCH ×2 (08:33→21:00)
[2022-11-11] MEDS: NEOMY/BACITRA/POLYMYXIN B OINT UD PACKET TP SCH ×2 (08:33→21:00)
[2022-11-11] MEDS: ASCORBIC ACID 500 MG TABLET GT SCH (08:33)
[2022-11-11] MEDS: DULOXETINE 20 MG CAPSULE.DR GT SCH (08:33)
[2022-11-11] MEDS: HYDROGEN PEROXIDE 3% 118 ML BOTTLE TP SCH ×2 (08:43→21:00)
[2022-11-11 20:00] VITALS: TEMP 98.8
[2022-11-11] MEDS: MULTIVIT, IRON, MIN NO. 8, FA TABLET GT SCH (21:00)
[2022-11-11] MEDS: PROTEIN SUPPLEMENT (PROSTAT) 30 ML LIQUID GT SCH (21:00)
[2022-11-12] MEDS: BACLOFEN 10 MG TABLET GT SCH ×3 (05:58→22:23)
[2022-11-12] MEDS: ACIDOPHILUS/BULGARICUS CHEW TAB GT SCH ×2 (05:58→17:36)
[2022-11-12] MEDS: SIMETHICONE 80 MG TAB.CHEW GT SCH ×4 (05:59→17:36)
[2022-11-12] MEDS: NUTRISOURCE FIBER 4 GM PACKET GT SCH ×2 (05:59→17:36)
[2022-11-12] MEDS: OMEPRAZOLE 20 MG CAPSULE.DR GT SCH (06:01)
[2022-11-12] MEDS: FINASTERIDE 5 MG TABLET GT SCH (08:24)
[2022-11-12] MEDS: DULOXETINE 20 MG CAPSULE.DR GT SCH (08:24)
[2022-11-12] MEDS: ASCORBIC ACID 500 MG TABLET GT SCH (08:24)
[2022-11-12] MEDS: REMEDY ESSENTIAL ZINC PASTE 113 GM TP SCH ×2 (08:25→21:00)
[2022-11-12] MEDS: VITAMINS A AND D OINT 42 GM TUBE TP SCH (08:25)
[2022-11-12] MEDS: NEOMY/BACITRA/POLYMYXIN B OINT UD PACKET TP SCH ×2 (08:25→21:00)
[2022-11-12] MEDS: HYDROGEN PEROXIDE 3% 118 ML BOTTLE TP SCH ×2 (09:26→21:00)
[2022-11-12 11:36] VITALS: TEMP 98.3
[2022-11-12 20:00] VITALS: TEMP 98.4
[2022-11-12] MEDS: PROTEIN SUPPLEMENT (PROSTAT) 30 ML LIQUID GT SCH (21:00)
[2022-11-12] MEDS: MULTIVIT, IRON, MIN NO. 8, FA TABLET GT SCH (21:00)
[2022-11-13] MEDS: SIMETHICONE 80 MG TAB.CHEW GT SCH ×4 (00:25→17:31)
[2022-11-13] MEDS: NUTRISOURCE FIBER 4 GM PACKET GT SCH ×2 (05:39→17:31)
[2022-11-13] MEDS: OMEPRAZOLE 20 MG CAPSULE.DR GT SCH (05:39)
[2022-11-13] MEDS: BACLOFEN 10 MG TABLET GT SCH ×3 (05:39→22:00)
[2022-11-13] MEDS: ACIDOPHILUS/BULGARICUS CHEW TAB GT SCH ×2 (05:39→17:31)
[2022-11-13 08:24] LABS: CALCIUM 9.1 mg/dL (8.5-10.1); CREATININE 0.6 mg/dL (0.6-1.3); MAGNESIUM 2.1 mg/dL (1.8-2.4); PHOSPHOROUS 3.9 mg/dL (2.5-4.9); POTASSIUM 5.6 mmol/L (3.5-5.1)
[2022-11-13 09:00] LABS: BASOPHILS % (AUTO) 0.5 % (0.0-2.0); EOSINOPHILS # (AUTO) 0.4 K/uL (0.0-0.7); EOSINOPHILS % (AUTO) 7.8 % (0.0-7.0); HEMATOCRIT 38.6 % (36.7-47.1); HEMOGLOBIN 12.9 g/dL (12.5-16.3); LYMPHOCYTES # (AUTO) 1.8 K/uL (0.8-4.8); LYMPHOCYTES % (AUTO) 31.3 % (20.5-51.5); MEAN CORPUSCULAR HEMOGLOBIN 28.9 uug (23.8-33.4); MEAN CORPUSCULAR HGB CONC 33 g/dL (32.5-36.3); MEAN CORPUSCULAR VOLUME 86.6 fL (73.0-96.2); MONOCYTES # (AUTO) 0.5 K/uL (0.1-1.30); MONOCYTES % (AUTO) 8.1 % (0.0-11.0); NEUTROPHILS # (AUTO) 2.9 K/uL (1.8-8.9); NEUTROPHILS % (AUTO) 52.3 % (38.5-71.5); PLATELET COUNT (AUTO) 219 K/uL (152-348); RED BLOOD CELL COUNT(AUTO) 4.46 MIL/uL (4.06-5.63); RED CELL DISTRIBUTION WIDTH 14.9 % (12.1-16.2); WHITE BLOOD COUNT (AUTO) 5.6 K/uL (3.6-10.2)
[2022-11-13] MEDS: VITAMINS A AND D OINT 42 GM TUBE TP SCH (09:23)
[2022-11-13] MEDS: NEOMY/BACITRA/POLYMYXIN B OINT UD PACKET TP SCH ×2 (09:23→21:00)
[2022-11-13] MEDS: ASCORBIC ACID 500 MG TABLET GT SCH (09:23)
[2022-11-13] MEDS: FINASTERIDE 5 MG TABLET GT SCH (09:23)
[2022-11-13] MEDS: REMEDY ESSENTIAL ZINC PASTE 113 GM TP SCH ×2 (09:23→21:00)
[2022-11-13] MEDS: DULOXETINE 20 MG CAPSULE.DR GT SCH (09:23)
[2022-11-13] MEDS: HYDROGEN PEROXIDE 3% 118 ML BOTTLE TP SCH ×2 (09:55→21:00)
[2022-11-13 11:18] VITALS: TEMP 99.6
[2022-11-13] MEDS: JEVITY 1.2 1000 ML LIQUID GT PRN (13:54)
[2022-11-13] MEDS: PROTEIN SUPPLEMENT (PROSTAT) 30 ML LIQUID GT SCH (21:00)
[2022-11-13] MEDS: MULTIVIT, IRON, MIN NO. 8, FA TABLET GT SCH (21:00)
[2022-11-13 21:31] VITALS: TEMP 98.5
[2022-11-14] MEDS: ACIDOPHILUS/BULGARICUS CHEW TAB GT SCH ×2 (06:00→18:20)
[2022-11-14] MEDS: SIMETHICONE 80 MG TAB.CHEW GT SCH ×4 (06:00→18:20)
[2022-11-14] MEDS: BACLOFEN 10 MG TABLET GT SCH ×3 (06:00→22:34)
[2022-11-14] MEDS: NUTRISOURCE FIBER 4 GM PACKET GT SCH ×2 (06:00→13:14)
[2022-11-14] MEDS: OMEPRAZOLE 20 MG CAPSULE.DR GT SCH (06:00)
[2022-11-14] MEDS: HYDROGEN PEROXIDE 3% 118 ML BOTTLE TP SCH ×2 (07:41→20:21)
[2022-11-14] MEDS: DULOXETINE 20 MG CAPSULE.DR GT SCH (08:52)
[2022-11-14] MEDS: FINASTERIDE 5 MG TABLET GT SCH (08:52)
[2022-11-14] MEDS: NEOMY/BACITRA/POLYMYXIN B OINT UD PACKET TP SCH ×2 (08:53→21:00)
[2022-11-14] MEDS: ASCORBIC ACID 500 MG TABLET GT SCH (08:53)
[2022-11-14] MEDS: REMEDY ESSENTIAL ZINC PASTE 113 GM TP SCH ×2 (08:53→21:00)
[2022-11-14] MEDS: VITAMINS A AND D OINT 42 GM TUBE TP SCH (08:53)
[2022-11-14 11:15] VITALS: TEMP 98.2
[2022-11-14 11:35] VITALS: O2SAT 99
[2022-11-14] MEDS: MAGNESIUM HYDROXIDE 30 ML LIQUID UDC GT PRN (16:51)
[2022-11-14] MEDS: SODIUM POLYSTYRENE SULFONATE 15 G/60 ML LIQUID UDC GT SCH ×2 (18:35→22:34)
[2022-11-14] MEDS: PROTEIN SUPPLEMENT (PROSTAT) 30 ML LIQUID GT SCH (21:00)
[2022-11-14] MEDS: MULTIVIT, IRON, MIN NO. 8, FA TABLET GT SCH (21:00)
[2022-11-15 01:22] VITALS: TEMP 97.6
[2022-11-15] MEDS: ACIDOPHILUS/BULGARICUS CHEW TAB GT SCH ×2 (06:13→17:36)
[2022-11-15] MEDS: BACLOFEN 10 MG TABLET GT SCH ×3 (06:14→21:03)
[2022-11-15] MEDS: OMEPRAZOLE 20 MG CAPSULE.DR GT SCH (06:14)
[2022-11-15] MEDS: SIMETHICONE 80 MG TAB.CHEW GT SCH ×4 (06:14→17:36)
[2022-11-15] MEDS: NUTRISOURCE FIBER 4 GM PACKET GT SCH ×2 (06:14→17:36)
[2022-11-15 07:42] VITALS: TEMP 98.8
[2022-11-15] MEDS: REMEDY ESSENTIAL ZINC PASTE 113 GM TP SCH ×2 (08:58→21:03)
[2022-11-15] MEDS: NEOMY/BACITRA/POLYMYXIN B OINT UD PACKET TP SCH ×2 (08:58→21:03)
[2022-11-15] MEDS: DULOXETINE 20 MG CAPSULE.DR GT SCH (08:58)
[2022-11-15] MEDS: ASCORBIC ACID 500 MG TABLET GT SCH (08:58)
[2022-11-15] MEDS: VITAMINS A AND D OINT 42 GM TUBE TP SCH (08:58)
[2022-11-15] MEDS: FINASTERIDE 5 MG TABLET GT SCH (08:58)
[2022-11-15] MEDS: HYDROGEN PEROXIDE 3% 118 ML BOTTLE TP SCH ×3 (09:06→21:27)
[2022-11-15 20:00] VITALS: TEMP 98.1
[2022-11-15] MEDS: PROTEIN SUPPLEMENT (PROSTAT) 30 ML LIQUID GT SCH (21:03)
[2022-11-15] MEDS: MULTIVIT, IRON, MIN NO. 8, FA TABLET GT SCH (21:03)
[2022-11-16] MEDS: SIMETHICONE 80 MG TAB.CHEW GT SCH ×4 (00:40→17:02)
[2022-11-16] MEDS: HARRIS FLUSH ENEMA PR PRN (01:02)
[2022-11-16] MEDS: JEVITY 1.2 1000 ML LIQUID GT PRN ×2 (04:34→19:58)
[2022-11-16] MEDS: OMEPRAZOLE 20 MG CAPSULE.DR GT SCH (05:29)
[2022-11-16] MEDS: ACIDOPHILUS/BULGARICUS CHEW TAB GT SCH ×2 (05:29→17:02)
[2022-11-16] MEDS: NUTRISOURCE FIBER 4 GM PACKET GT SCH ×2 (05:29→17:02)
[2022-11-16] MEDS: BACLOFEN 10 MG TABLET GT SCH ×3 (05:29→22:00)
[2022-11-16 07:48] VITALS: TEMP 97.6
[2022-11-16] MEDS: HYDROGEN PEROXIDE 3% 118 ML BOTTLE TP SCH (08:28)
[2022-11-16] MEDS: DULOXETINE 20 MG CAPSULE.DR GT SCH (09:08)
[2022-11-16] MEDS: FINASTERIDE 5 MG TABLET GT SCH (09:09)
[2022-11-16] MEDS: NEOMY/BACITRA/POLYMYXIN B OINT UD PACKET TP SCH ×2 (09:09→21:00)
[2022-11-16] MEDS: ASCORBIC ACID 500 MG TABLET GT SCH (09:09)
[2022-11-16] MEDS: VITAMINS A AND D OINT 42 GM TUBE TP SCH (09:09)
[2022-11-16] MEDS: REMEDY ESSENTIAL ZINC PASTE 113 GM TP SCH ×2 (09:09→21:00)
[2022-11-16 20:00] VITALS: TEMP 98.1
[2022-11-16] MEDS: PROTEIN SUPPLEMENT (PROSTAT) 30 ML LIQUID GT SCH (21:00)
[2022-11-16] MEDS: MULTIVIT, IRON, MIN NO. 8, FA TABLET GT SCH (21:00)
[2022-11-17] MEDS: ACIDOPHILUS/BULGARICUS CHEW TAB GT SCH ×2 (05:47→17:05)
[2022-11-17] MEDS: SIMETHICONE 80 MG TAB.CHEW GT SCH ×4 (05:47→17:05)
[2022-11-17] MEDS: NUTRISOURCE FIBER 4 GM PACKET GT SCH ×2 (05:47→18:05)
[2022-11-17] MEDS: BACLOFEN 10 MG TABLET GT SCH ×3 (05:47→21:39)
[2022-11-17] MEDS: OMEPRAZOLE 20 MG CAPSULE.DR GT SCH (05:47)
[2022-11-17 07:41] VITALS: TEMP 98
[2022-11-17] MEDS: HYDROGEN PEROXIDE 3% 118 ML BOTTLE TP SCH ×2 (08:10→21:13)
[2022-11-17] MEDS: VITAMINS A AND D OINT 42 GM TUBE TP SCH (08:38)
[2022-11-17] MEDS: NEOMY/BACITRA/POLYMYXIN B OINT UD PACKET TP SCH ×2 (08:38→20:12)
[2022-11-17] MEDS: ASCORBIC ACID 500 MG TABLET GT SCH (08:38)
[2022-11-17] MEDS: FINASTERIDE 5 MG TABLET GT SCH (08:38)
[2022-11-17] MEDS: REMEDY ESSENTIAL ZINC PASTE 113 GM TP SCH ×2 (08:38→20:11)
[2022-11-17] MEDS: DULOXETINE 20 MG CAPSULE.DR GT SCH (08:38)
[2022-11-17] MEDS: JEVITY 1.2 1000 ML LIQUID GT PRN (17:06)
[2022-11-17 20:00] VITALS: TEMP 98.1
[2022-11-17] MEDS: MULTIVIT, IRON, MIN NO. 8, FA TABLET GT SCH (20:11)
[2022-11-17] MEDS: PROTEIN SUPPLEMENT (PROSTAT) 30 ML LIQUID GT SCH (20:11)
[2022-11-18] MEDS: ACIDOPHILUS/BULGARICUS CHEW TAB GT SCH ×2 (05:35→18:06)
[2022-11-18] MEDS: BACLOFEN 10 MG TABLET GT SCH ×3 (05:35→22:13)
[2022-11-18] MEDS: OMEPRAZOLE 20 MG CAPSULE.DR GT SCH (05:35)
[2022-11-18] MEDS: NUTRISOURCE FIBER 4 GM PACKET GT SCH ×2 (05:35→18:06)
[2022-11-18] MEDS: SIMETHICONE 80 MG TAB.CHEW GT SCH ×4 (05:35→18:06)
[2022-11-18] MEDS: HYDROGEN PEROXIDE 3% 118 ML BOTTLE TP SCH ×2 (07:43→21:10)
[2022-11-18 07:47] VITALS: TEMP 99.1
[2022-11-18] MEDS: FINASTERIDE 5 MG TABLET GT SCH (08:37)
[2022-11-18] MEDS: REMEDY ESSENTIAL ZINC PASTE 113 GM TP SCH ×2 (08:37→20:37)
[2022-11-18] MEDS: DULOXETINE 20 MG CAPSULE.DR GT SCH (08:37)
[2022-11-18] MEDS: ASCORBIC ACID 500 MG TABLET GT SCH (08:37)
[2022-11-18] MEDS: NEOMY/BACITRA/POLYMYXIN B OINT UD PACKET TP SCH ×2 (08:38→20:37)
[2022-11-18] MEDS: VITAMINS A AND D OINT 42 GM TUBE TP SCH (08:38)
[2022-11-18] MEDS: JEVITY 1.2 1000 ML LIQUID GT PRN (12:42)
[2022-11-18 20:00] VITALS: TEMP 97.9
[2022-11-18] MEDS: PROTEIN SUPPLEMENT (PROSTAT) 30 ML LIQUID GT SCH (20:37)
[2022-11-18] MEDS: MULTIVIT, IRON, MIN NO. 8, FA TABLET GT SCH (20:37)
[2022-11-19] MEDS: BACLOFEN 10 MG TABLET GT SCH ×3 (05:28→22:41)
[2022-11-19] MEDS: SIMETHICONE 80 MG TAB.CHEW GT SCH ×4 (05:28→17:32)
[2022-11-19] MEDS: ACIDOPHILUS/BULGARICUS CHEW TAB GT SCH ×2 (05:28→17:32)
[2022-11-19] MEDS: NUTRISOURCE FIBER 4 GM PACKET GT SCH ×2 (05:28→17:32)
[2022-11-19] MEDS: OMEPRAZOLE 20 MG CAPSULE.DR GT SCH (05:28)
[2022-11-19 07:44] VITALS: TEMP 98.7
[2022-11-19] MEDS: REMEDY ESSENTIAL ZINC PASTE 113 GM TP SCH ×2 (08:25→20:27)
[2022-11-19] MEDS: FINASTERIDE 5 MG TABLET GT SCH (08:25)
[2022-11-19] MEDS: DULOXETINE 20 MG CAPSULE.DR GT SCH (08:25)
[2022-11-19] MEDS: ASCORBIC ACID 500 MG TABLET GT SCH (08:25)
[2022-11-19] MEDS: VITAMINS A AND D OINT 42 GM TUBE TP SCH (08:25)
[2022-11-19] MEDS: JEVITY 1.2 1000 ML LIQUID GT PRN (08:26)
[2022-11-19] MEDS: HYDROGEN PEROXIDE 3% 118 ML BOTTLE TP SCH ×2 (09:28→21:47)
[2022-11-19 19:59] VITALS: TEMP 98.4
[2022-11-19] MEDS: PROTEIN SUPPLEMENT (PROSTAT) 30 ML LIQUID GT SCH (20:27)
[2022-11-19] MEDS: MULTIVIT, IRON, MIN NO. 8, FA TABLET GT SCH (20:27)
[2022-11-20] MEDS: SIMETHICONE 80 MG TAB.CHEW GT SCH ×5 (00:36→23:48)
[2022-11-20] MEDS: JEVITY 1.2 1000 ML LIQUID GT PRN ×2 (00:36→18:33)
[2022-11-20] MEDS: ACIDOPHILUS/BULGARICUS CHEW TAB GT SCH ×2 (05:33→17:19)
[2022-11-20] MEDS: BACLOFEN 10 MG TABLET GT SCH ×3 (05:33→22:00)
[2022-11-20] MEDS: NUTRISOURCE FIBER 4 GM PACKET GT SCH ×2 (05:33→17:19)
[2022-11-20] MEDS: OMEPRAZOLE 20 MG CAPSULE.DR GT SCH (05:33)
[2022-11-20] MEDS: HYDROGEN PEROXIDE 3% 118 ML BOTTLE TP SCH ×2 (07:21→21:22)
[2022-11-20 07:25] VITALS: TEMP 97.6
[2022-11-20 08:08] LABS: BASOPHILS # (AUTO) 0.1 K/UL (0.0-0.2); BASOPHILS % (AUTO) 0.6 % (0.0-2.0); EOSINOPHILS # (AUTO) 0.4 K/uL (0.0-0.7); HEMATOCRIT 39.7 % (36.7-47.1); HEMOGLOBIN 13.3 g/dL (12.5-16.3); LYMPHOCYTES # (AUTO) 2.6 K/uL (0.8-4.8); LYMPHOCYTES % (AUTO) 28.6 % (20.5-51.5); MEAN CORPUSCULAR HGB CONC 34 g/dL (32.5-36.3); MEAN CORPUSCULAR VOLUME 86.6 fL (73.0-96.2); MONOCYTES # (AUTO) 0.6 K/uL (0.1-1.30); MONOCYTES % (AUTO) 6.9 % (0.0-11.0); NEUTROPHILS # (AUTO) 5.3 K/uL (1.8-8.9); NEUTROPHILS % (AUTO) 58.9 % (38.5-71.5); PLATELET COUNT (AUTO) 190 K/uL (152-348); RED BLOOD CELL COUNT(AUTO) 4.58 MIL/uL (4.06-5.63); RED CELL DISTRIBUTION WIDTH 14.7 % (12.1-16.2); WHITE BLOOD COUNT (AUTO) 8.9 K/uL (3.6-10.2)
[2022-11-20 08:30] LABS: CALCIUM 9.4 mg/dL (8.5-10.1); CREATININE 0.6 mg/dL (0.6-1.3); MAGNESIUM 2.2 mg/dL (1.8-2.4); PHOSPHOROUS 3.5 mg/dL (2.5-4.9); POTASSIUM 4.7 mmol/L (3.5-5.1)
[2022-11-20] MEDS: REMEDY ESSENTIAL ZINC PASTE 113 GM TP SCH ×2 (08:45→21:00)
[2022-11-20] MEDS: ASCORBIC ACID 500 MG TABLET GT SCH (08:45)
[2022-11-20] MEDS: FINASTERIDE 5 MG TABLET GT SCH (08:45)
[2022-11-20] MEDS: DULOXETINE 20 MG CAPSULE.DR GT SCH (08:45)
[2022-11-20] MEDS: VITAMINS A AND D OINT 42 GM TUBE TP SCH (08:45)
[2022-11-20 09:10] LABS: DIFFERENTIAL COMMENT 1
[2022-11-20 20:11] VITALS: TEMP 99
[2022-11-20] MEDS: MULTIVIT, IRON, MIN NO. 8, FA TABLET GT SCH (21:00)
[2022-11-20] MEDS: PROTEIN SUPPLEMENT (PROSTAT) 30 ML LIQUID GT SCH (21:00)
[2022-11-21] MEDS: SIMETHICONE 80 MG TAB.CHEW GT SCH ×3 (06:46→17:06)
[2022-11-21] MEDS: BACLOFEN 10 MG TABLET GT SCH ×3 (06:46→21:38)
[2022-11-21] MEDS: NUTRISOURCE FIBER 4 GM PACKET GT SCH ×2 (06:46→17:06)
[2022-11-21] MEDS: OMEPRAZOLE 20 MG CAPSULE.DR GT SCH (06:46)
[2022-11-21] MEDS: ACIDOPHILUS/BULGARICUS CHEW TAB GT SCH ×2 (06:54→17:06)
[2022-11-21 07:18] VITALS: TEMP 98.4
[2022-11-21] MEDS: HYDROGEN PEROXIDE 3% 118 ML BOTTLE TP SCH ×2 (07:18→21:00)
[2022-11-21 08:51] LABS: CALCIUM 9.1 mg/dL (8.5-10.1); CREATININE 0.6 mg/dL (0.6-1.3); POTASSIUM 4.1 mmol/L (3.5-5.1)
[2022-11-21] MEDS: FINASTERIDE 5 MG TABLET GT SCH (08:55)
[2022-11-21] MEDS: DULOXETINE 20 MG CAPSULE.DR GT SCH (08:55)
[2022-11-21] MEDS: ASCORBIC ACID 500 MG TABLET GT SCH (08:55)
[2022-11-21] MEDS: REMEDY ESSENTIAL ZINC PASTE 113 GM TP SCH ×2 (08:56→21:38)
[2022-11-21] MEDS: VITAMINS A AND D OINT 42 GM TUBE TP SCH (08:56)
[2022-11-21] MEDS: JEVITY 1.2 1000 ML LIQUID GT PRN (15:26)
[2022-11-21 20:04] VITALS: TEMP 99.8
[2022-11-21] MEDS: PROTEIN SUPPLEMENT (PROSTAT) 30 ML LIQUID GT SCH (21:37)
[2022-11-21] MEDS: MULTIVIT, IRON, MIN NO. 8, FA TABLET GT SCH (21:38)
[2022-11-22] MEDS: OMEPRAZOLE 20 MG CAPSULE.DR GT SCH (05:09)
[2022-11-22] MEDS: NUTRISOURCE FIBER 4 GM PACKET GT SCH ×2 (05:09→17:04)
[2022-11-22] MEDS: BACLOFEN 10 MG TABLET GT SCH ×3 (05:09→22:02)
[2022-11-22] MEDS: SIMETHICONE 80 MG TAB.CHEW GT SCH ×5 (05:09→23:06)
[2022-11-22] MEDS: ACIDOPHILUS/BULGARICUS CHEW TAB GT SCH ×2 (05:09→17:04)
[2022-11-22 07:30] VITALS: TEMP 97.6
[2022-11-22] MEDS: REMEDY ESSENTIAL ZINC PASTE 113 GM TP SCH ×2 (08:48→20:15)
[2022-11-22] MEDS: ASCORBIC ACID 500 MG TABLET GT SCH (08:48)
[2022-11-22] MEDS: VITAMINS A AND D OINT 42 GM TUBE TP SCH (08:48)
[2022-11-22] MEDS: FINASTERIDE 5 MG TABLET GT SCH (08:48)
[2022-11-22] MEDS: DULOXETINE 20 MG CAPSULE.DR GT SCH (08:48)
[2022-11-22] MEDS: HYDROGEN PEROXIDE 3% 118 ML BOTTLE TP SCH ×2 (09:22→21:25)
[2022-11-22] MEDS: JEVITY 1.2 1000 ML LIQUID GT PRN (11:20)
[2022-11-22 20:10] VITALS: TEMP 99.4
[2022-11-22] MEDS: PROTEIN SUPPLEMENT (PROSTAT) 30 ML LIQUID GT SCH (20:15)
[2022-11-22] MEDS: MULTIVIT, IRON, MIN NO. 8, FA TABLET GT SCH (20:15)
[2022-11-23] MEDS: JEVITY 1.2 1000 ML LIQUID GT PRN (03:00)
[2022-11-23] MEDS: SIMETHICONE 80 MG TAB.CHEW GT SCH ×4 (06:17→22:34)
[2022-11-23] MEDS: ACIDOPHILUS/BULGARICUS CHEW TAB GT SCH ×2 (06:17→17:16)
[2022-11-23] MEDS: OMEPRAZOLE 20 MG CAPSULE.DR GT SCH (06:17)
[2022-11-23] MEDS: BACLOFEN 10 MG TABLET GT SCH ×3 (06:17→22:34)
[2022-11-23] MEDS: NUTRISOURCE FIBER 4 GM PACKET GT SCH ×2 (06:17→17:16)
[2022-11-23] MEDS: HYDROGEN PEROXIDE 3% 118 ML BOTTLE TP SCH ×2 (07:27→19:10)
[2022-11-23 07:47] VITALS: TEMP 98.8
[2022-11-23] MEDS: DULOXETINE 20 MG CAPSULE.DR GT SCH (08:13)
[2022-11-23] MEDS: FINASTERIDE 5 MG TABLET GT SCH (08:13)
[2022-11-23] MEDS: VITAMINS A AND D OINT 42 GM TUBE TP SCH (08:13)
[2022-11-23] MEDS: REMEDY ESSENTIAL ZINC PASTE 113 GM TP SCH ×2 (08:13→21:00)
[2022-11-23] MEDS: ASCORBIC ACID 500 MG TABLET GT SCH (08:13)
[2022-11-23 20:04] VITALS: TEMP 98.3
[2022-11-23] MEDS: PROTEIN SUPPLEMENT (PROSTAT) 30 ML LIQUID GT SCH (21:00)
[2022-11-23] MEDS: MULTIVIT, IRON, MIN NO. 8, FA TABLET GT SCH (21:00)
[2022-11-24] MEDS: OMEPRAZOLE 20 MG CAPSULE.DR GT SCH (06:42)
[2022-11-24] MEDS: ACIDOPHILUS/BULGARICUS CHEW TAB GT SCH ×2 (06:42→17:11)
[2022-11-24] MEDS: BACLOFEN 10 MG TABLET GT SCH ×3 (06:42→22:32)
[2022-11-24] MEDS: SIMETHICONE 80 MG TAB.CHEW GT SCH ×3 (06:43→17:11)
[2022-11-24] MEDS: NUTRISOURCE FIBER 4 GM PACKET GT SCH ×2 (06:43→17:11)
[2022-11-24 07:48] VITALS: TEMP 97.6
[2022-11-24] MEDS: HYDROGEN PEROXIDE 3% 118 ML BOTTLE TP SCH ×2 (08:30→19:10)
[2022-11-24] MEDS: REMEDY ESSENTIAL ZINC PASTE 113 GM TP SCH ×2 (08:36→21:00)
[2022-11-24] MEDS: FINASTERIDE 5 MG TABLET GT SCH (08:36)
[2022-11-24] MEDS: VITAMINS A AND D OINT 42 GM TUBE TP SCH (08:36)
[2022-11-24] MEDS: DULOXETINE 20 MG CAPSULE.DR GT SCH (08:36)
[2022-11-24] MEDS: ASCORBIC ACID 500 MG TABLET GT SCH (08:36)
[2022-11-24 20:10] VITALS: TEMP 98.7
[2022-11-24] MEDS: PROTEIN SUPPLEMENT (PROSTAT) 30 ML LIQUID GT SCH (21:00)
[2022-11-24] MEDS: MULTIVIT, IRON, MIN NO. 8, FA TABLET GT SCH (21:00)
[2022-11-25] MEDS: SIMETHICONE 80 MG TAB.CHEW GT SCH ×4 (00:54→17:43)
[2022-11-25] MEDS: JEVITY 1.2 1000 ML LIQUID GT PRN (03:00)
[2022-11-25] MEDS: ACIDOPHILUS/BULGARICUS CHEW TAB GT SCH ×2 (06:35→17:43)
[2022-11-25] MEDS: NUTRISOURCE FIBER 4 GM PACKET GT SCH ×2 (06:35→17:43)
[2022-11-25] MEDS: OMEPRAZOLE 20 MG CAPSULE.DR GT SCH (06:35)
[2022-11-25] MEDS: BACLOFEN 10 MG TABLET GT SCH ×3 (06:35→22:00)
[2022-11-25] MEDS: HYDROGEN PEROXIDE 3% 118 ML BOTTLE TP SCH ×2 (07:10→19:01)
[2022-11-25 07:58] VITALS: TEMP 98.4
[2022-11-25] MEDS: FINASTERIDE 5 MG TABLET GT SCH (09:56)
[2022-11-25] MEDS: DULOXETINE 20 MG CAPSULE.DR GT SCH (09:56)
[2022-11-25] MEDS: VITAMINS A AND D OINT 42 GM TUBE TP SCH (09:57)
[2022-11-25] MEDS: ASCORBIC ACID 500 MG TABLET GT SCH (09:57)
[2022-11-25] MEDS: REMEDY ESSENTIAL ZINC PASTE 113 GM TP SCH ×2 (09:57→21:00)
[2022-11-25 19:46] VITALS: TEMP 98.1
[2022-11-25] MEDS: PROTEIN SUPPLEMENT (PROSTAT) 30 ML LIQUID GT SCH (21:00)
[2022-11-25] MEDS: MULTIVIT, IRON, MIN NO. 8, FA TABLET GT SCH (21:00)
[2022-11-26] MEDS: SIMETHICONE 80 MG TAB.CHEW GT SCH ×5 (00:09→23:35)
[2022-11-26] MEDS: JEVITY 1.2 1000 ML LIQUID GT PRN (04:00)
[2022-11-26] MEDS: BACLOFEN 10 MG TABLET GT SCH ×3 (06:30→22:00)
[2022-11-26] MEDS: ACIDOPHILUS/BULGARICUS CHEW TAB GT SCH ×2 (06:30→17:06)
[2022-11-26] MEDS: NUTRISOURCE FIBER 4 GM PACKET GT SCH ×2 (06:30→17:06)
[2022-11-26] MEDS: OMEPRAZOLE 20 MG CAPSULE.DR GT SCH (06:30)
[2022-11-26] MEDS: REMEDY ESSENTIAL ZINC PASTE 113 GM TP SCH ×2 (08:30→21:00)
[2022-11-26] MEDS: ASCORBIC ACID 500 MG TABLET GT SCH (08:30)
[2022-11-26] MEDS: VITAMINS A AND D OINT 42 GM TUBE TP SCH (08:30)
[2022-11-26] MEDS: DULOXETINE 20 MG CAPSULE.DR GT SCH (08:30)
[2022-11-26] MEDS: FINASTERIDE 5 MG TABLET GT SCH (08:30)
[2022-11-26] MEDS: HYDROGEN PEROXIDE 3% 118 ML BOTTLE TP SCH ×2 (09:42→21:11)
[2022-11-26 11:56] VITALS: TEMP 98.9
[2022-11-26 20:00] VITALS: TEMP 97.5
[2022-11-26] MEDS: PROTEIN SUPPLEMENT (PROSTAT) 30 ML LIQUID GT SCH (21:00)
[2022-11-26] MEDS: MULTIVIT, IRON, MIN NO. 8, FA TABLET GT SCH (21:00)
[2022-11-27] MEDS: JEVITY 1.2 1000 ML LIQUID GT PRN (05:00)
[2022-11-27] MEDS: BACLOFEN 10 MG TABLET GT SCH ×3 (06:25→22:42)
[2022-11-27] MEDS: OMEPRAZOLE 20 MG CAPSULE.DR GT SCH (06:25)
[2022-11-27] MEDS: NUTRISOURCE FIBER 4 GM PACKET GT SCH ×2 (06:25→17:05)
[2022-11-27] MEDS: ACIDOPHILUS/BULGARICUS CHEW TAB GT SCH ×2 (06:25→17:05)
[2022-11-27] MEDS: SIMETHICONE 80 MG TAB.CHEW GT SCH ×4 (06:25→22:42)
[2022-11-27 07:22] VITALS: TEMP 97.7
[2022-11-27] MEDS: FINASTERIDE 5 MG TABLET GT SCH (09:24)
[2022-11-27] MEDS: DULOXETINE 20 MG CAPSULE.DR GT SCH (09:24)
[2022-11-27] MEDS: ASCORBIC ACID 500 MG TABLET GT SCH (09:25)
[2022-11-27] MEDS: VITAMINS A AND D OINT 42 GM TUBE TP SCH (09:25)
[2022-11-27] MEDS: REMEDY ESSENTIAL ZINC PASTE 113 GM TP SCH ×2 (09:25→21:00)
[2022-11-27] MEDS: HYDROGEN PEROXIDE 3% 118 ML BOTTLE TP SCH ×2 (09:37→21:00)
[2022-11-27] MEDS: NEOMY/BACITRA/POLYMYXIN B OINT UD PACKET TP SCH (10:15)
[2022-11-27 19:57] VITALS: TEMP 98.9
[2022-11-27] MEDS: MULTIVIT, IRON, MIN NO. 8, FA TABLET GT SCH (21:00)
[2022-11-27] MEDS: PROTEIN SUPPLEMENT (PROSTAT) 30 ML LIQUID GT SCH (21:00)
[2022-11-28] MEDS: JEVITY 1.2 1000 ML LIQUID GT PRN ×2 (02:00→17:34)
[2022-11-28] MEDS: ACIDOPHILUS/BULGARICUS CHEW TAB GT SCH ×2 (06:41→17:34)
[2022-11-28] MEDS: SIMETHICONE 80 MG TAB.CHEW GT SCH ×3 (06:41→17:34)
[2022-11-28] MEDS: NUTRISOURCE FIBER 4 GM PACKET GT SCH ×2 (06:41→17:34)
[2022-11-28] MEDS: OMEPRAZOLE 20 MG CAPSULE.DR GT SCH (06:41)
[2022-11-28] MEDS: BACLOFEN 10 MG TABLET GT SCH ×3 (06:41→22:03)
[2022-11-28] MEDS: HYDROGEN PEROXIDE 3% 118 ML BOTTLE TP SCH ×2 (07:15→21:00)
[2022-11-28 07:26] VITALS: TEMP 99.2
[2022-11-28] MEDS: FINASTERIDE 5 MG TABLET GT SCH (08:52)
[2022-11-28] MEDS: DULOXETINE 20 MG CAPSULE.DR GT SCH (08:52)
[2022-11-28] MEDS: ASCORBIC ACID 500 MG TABLET GT SCH (08:52)
[2022-11-28] MEDS: REMEDY ESSENTIAL ZINC PASTE 113 GM TP SCH ×2 (08:53→21:00)
[2022-11-28] MEDS: VITAMINS A AND D OINT 42 GM TUBE TP SCH (08:53)
[2022-11-28] MEDS: NEOMY/BACITRA/POLYMYXIN B OINT UD PACKET TP SCH (09:00)
[2022-11-28 19:55] VITALS: TEMP 98.9
[2022-11-28] MEDS: PROTEIN SUPPLEMENT (PROSTAT) 30 ML LIQUID GT SCH (21:00)
[2022-11-28] MEDS: MULTIVIT, IRON, MIN NO. 8, FA TABLET GT SCH (21:00)
[2022-11-29] MEDS: SIMETHICONE 80 MG TAB.CHEW GT SCH ×4 (00:40→17:18)
[2022-11-29] MEDS: NUTRISOURCE FIBER 4 GM PACKET GT SCH ×2 (06:34→17:18)
[2022-11-29] MEDS: ACIDOPHILUS/BULGARICUS CHEW TAB GT SCH ×2 (06:34→17:18)
[2022-11-29] MEDS: OMEPRAZOLE 20 MG CAPSULE.DR GT SCH (06:34)
[2022-11-29] MEDS: BACLOFEN 10 MG TABLET GT SCH ×3 (06:34→21:27)
[2022-11-29 07:22] VITALS: TEMP 98.2
[2022-11-29] MEDS: HYDROGEN PEROXIDE 3% 118 ML BOTTLE TP SCH ×2 (09:06→19:16)
[2022-11-29] MEDS: DULOXETINE 20 MG CAPSULE.DR GT SCH (09:31)
[2022-11-29] MEDS: FINASTERIDE 5 MG TABLET GT SCH (09:31)
[2022-11-29] MEDS: REMEDY ESSENTIAL ZINC PASTE 113 GM TP SCH ×2 (09:33→21:27)
[2022-11-29] MEDS: VITAMINS A AND D OINT 42 GM TUBE TP SCH (09:33)
[2022-11-29] MEDS: NEOMY/BACITRA/POLYMYXIN B OINT UD PACKET TP SCH (09:33)
[2022-11-29] MEDS: ASCORBIC ACID 500 MG TABLET GT SCH (09:33)
[2022-11-29] MEDS: JEVITY 1.2 1000 ML LIQUID GT PRN (12:15)
[2022-11-29 20:22] VITALS: TEMP 98.4
[2022-11-29] MEDS: PROTEIN SUPPLEMENT (PROSTAT) 30 ML LIQUID GT SCH (21:27)
[2022-11-29] MEDS: MULTIVIT, IRON, MIN NO. 8, FA TABLET GT SCH (21:27)
[2022-11-30] MEDS: SIMETHICONE 80 MG TAB.CHEW GT SCH ×4 (00:06→18:32)
[2022-11-30] MEDS: OMEPRAZOLE 20 MG CAPSULE.DR GT SCH (06:53)
[2022-11-30] MEDS: ACIDOPHILUS/BULGARICUS CHEW TAB GT SCH ×2 (06:53→18:32)
[2022-11-30] MEDS: BACLOFEN 10 MG TABLET GT SCH ×3 (06:53→22:01)
[2022-11-30] MEDS: NUTRISOURCE FIBER 4 GM PACKET GT SCH ×2 (06:53→18:32)
[2022-11-30 07:54] VITALS: TEMP 98.8
[2022-11-30] MEDS: HYDROGEN PEROXIDE 3% 118 ML BOTTLE TP SCH ×2 (08:07→21:27)
[2022-11-30] MEDS: ASCORBIC ACID 500 MG TABLET GT SCH (09:19)
[2022-11-30] MEDS: REMEDY ESSENTIAL ZINC PASTE 113 GM TP SCH ×2 (09:19→20:43)
[2022-11-30] MEDS: NEOMY/BACITRA/POLYMYXIN B OINT UD PACKET TP SCH (09:19)
[2022-11-30] MEDS: DULOXETINE 20 MG CAPSULE.DR GT SCH (09:19)
[2022-11-30] MEDS: VITAMINS A AND D OINT 42 GM TUBE TP SCH (09:19)
[2022-11-30] MEDS: FINASTERIDE 5 MG TABLET GT SCH (09:19)
[2022-11-30] MEDS: JEVITY 1.2 1000 ML LIQUID GT PRN (16:26)
[2022-11-30 20:27] VITALS: TEMP 98.5
[2022-11-30] MEDS: PROTEIN SUPPLEMENT (PROSTAT) 30 ML LIQUID GT SCH (20:43)
[2022-11-30] MEDS: MULTIVIT, IRON, MIN NO. 8, FA TABLET GT SCH (20:43)
[2022-12-01] MEDS: SIMETHICONE 80 MG TAB.CHEW GT SCH ×5 (00:14→23:04)
[2022-12-01] MEDS: BACLOFEN 10 MG TABLET GT SCH ×3 (05:53→21:14)
[2022-12-01] MEDS: ACIDOPHILUS/BULGARICUS CHEW TAB GT SCH ×2 (05:53→17:35)
[2022-12-01] MEDS: OMEPRAZOLE 20 MG CAPSULE.DR GT SCH (05:53)
[2022-12-01] MEDS: NUTRISOURCE FIBER 4 GM PACKET GT SCH ×2 (05:53→17:35)
[2022-12-01] MEDS: HYDROGEN PEROXIDE 3% 118 ML BOTTLE TP SCH ×2 (07:20→21:18)
[2022-12-01 07:45] VITALS: TEMP 98.5
[2022-12-01] MEDS: DULOXETINE 20 MG CAPSULE.DR GT SCH (08:55)
[2022-12-01] MEDS: FINASTERIDE 5 MG TABLET GT SCH (08:55)
[2022-12-01] MEDS: NEOMY/BACITRA/POLYMYXIN B OINT UD PACKET TP SCH (08:56)
[2022-12-01] MEDS: ASCORBIC ACID 500 MG TABLET GT SCH (08:56)
[2022-12-01] MEDS: REMEDY ESSENTIAL ZINC PASTE 113 GM TP SCH ×2 (08:56→21:14)
[2022-12-01] MEDS: VITAMINS A AND D OINT 42 GM TUBE TP SCH (08:56)
[2022-12-01 20:16] VITALS: TEMP 99
[2022-12-01] MEDS: PROTEIN SUPPLEMENT (PROSTAT) 30 ML LIQUID GT SCH (21:00)
[2022-12-01] MEDS: MULTIVIT, IRON, MIN NO. 8, FA TABLET GT SCH (21:14)
[2022-12-02] MEDS: JEVITY 1.2 1000 ML LIQUID GT PRN (01:34)
[2022-12-02] MEDS: ACIDOPHILUS/BULGARICUS CHEW TAB GT SCH ×2 (05:16→17:29)
[2022-12-02] MEDS: OMEPRAZOLE 20 MG CAPSULE.DR GT SCH (05:16)
[2022-12-02] MEDS: NUTRISOURCE FIBER 4 GM PACKET GT SCH ×2 (05:16→17:29)
[2022-12-02] MEDS: BACLOFEN 10 MG TABLET GT SCH ×3 (05:16→22:11)
[2022-12-02] MEDS: SIMETHICONE 80 MG TAB.CHEW GT SCH ×4 (05:16→23:36)
[2022-12-02 07:45] VITALS: TEMP 98.7
[2022-12-02] MEDS: REMEDY ESSENTIAL ZINC PASTE 113 GM TP SCH ×2 (09:02→20:24)
[2022-12-02] MEDS: FINASTERIDE 5 MG TABLET GT SCH (09:02)
[2022-12-02] MEDS: DULOXETINE 20 MG CAPSULE.DR GT SCH (09:02)
[2022-12-02] MEDS: ASCORBIC ACID 500 MG TABLET GT SCH (09:02)
[2022-12-02] MEDS: NEOMY/BACITRA/POLYMYXIN B OINT UD PACKET TP SCH (09:02)
[2022-12-02] MEDS: VITAMINS A AND D OINT 42 GM TUBE TP SCH (09:03)
[2022-12-02] MEDS: HYDROGEN PEROXIDE 3% 118 ML BOTTLE TP SCH ×2 (09:07→21:12)
[2022-12-02 20:16] VITALS: TEMP 98.6
[2022-12-02] MEDS: MULTIVIT, IRON, MIN NO. 8, FA TABLET GT SCH (20:24)
[2022-12-02] MEDS: PROTEIN SUPPLEMENT (PROSTAT) 30 ML LIQUID GT SCH (20:24)
[2022-12-03] MEDS: BACLOFEN 10 MG TABLET GT SCH ×3 (05:11→22:38)
[2022-12-03] MEDS: JEVITY 1.2 1000 ML LIQUID GT PRN (05:11)
[2022-12-03] MEDS: OMEPRAZOLE 20 MG CAPSULE.DR GT SCH (05:11)
[2022-12-03] MEDS: SIMETHICONE 80 MG TAB.CHEW GT SCH ×4 (05:11→23:19)
[2022-12-03] MEDS: NUTRISOURCE FIBER 4 GM PACKET GT SCH ×2 (05:11→18:08)
[2022-12-03] MEDS: ACIDOPHILUS/BULGARICUS CHEW TAB GT SCH ×2 (05:11→18:08)
[2022-12-03 08:03] VITALS: TEMP 98.7
[2022-12-03] MEDS: DULOXETINE 20 MG CAPSULE.DR GT SCH (08:36)
[2022-12-03] MEDS: FINASTERIDE 5 MG TABLET GT SCH (08:38)
[2022-12-03] MEDS: ASCORBIC ACID 500 MG TABLET GT SCH (08:39)
[2022-12-03] MEDS: REMEDY ESSENTIAL ZINC PASTE 113 GM TP SCH ×2 (08:40→20:31)
[2022-12-03] MEDS: NEOMY/BACITRA/POLYMYXIN B OINT UD PACKET TP SCH (08:41)
[2022-12-03] MEDS: VITAMINS A AND D OINT 42 GM TUBE TP SCH (08:42)
[2022-12-03] MEDS: HYDROGEN PEROXIDE 3% 118 ML BOTTLE TP SCH ×2 (09:00→21:02)
[2022-12-03 20:27] VITALS: TEMP 98.8
[2022-12-03] MEDS: MULTIVIT, IRON, MIN NO. 8, FA TABLET GT SCH (20:31)
[2022-12-03] MEDS: PROTEIN SUPPLEMENT (PROSTAT) 30 ML LIQUID GT SCH (20:31)
[2022-12-04] MEDS: OMEPRAZOLE 20 MG CAPSULE.DR GT SCH (05:44)
[2022-12-04] MEDS: NUTRISOURCE FIBER 4 GM PACKET GT SCH ×2 (05:44→17:20)
[2022-12-04] MEDS: BACLOFEN 10 MG TABLET GT SCH ×3 (05:44→21:45)
[2022-12-04] MEDS: ACIDOPHILUS/BULGARICUS CHEW TAB GT SCH ×2 (05:44→17:20)
[2022-12-04] MEDS: SIMETHICONE 80 MG TAB.CHEW GT SCH ×4 (05:44→23:41)
[2022-12-04 07:25] VITALS: TEMP 98.7
[2022-12-04] MEDS: NEOMY/BACITRA/POLYMYXIN B OINT UD PACKET TP SCH (08:29)
[2022-12-04] MEDS: DULOXETINE 20 MG CAPSULE.DR GT SCH (08:29)
[2022-12-04] MEDS: FINASTERIDE 5 MG TABLET GT SCH (08:29)
[2022-12-04] MEDS: ASCORBIC ACID 500 MG TABLET GT SCH (08:29)
[2022-12-04] MEDS: VITAMINS A AND D OINT 42 GM TUBE TP SCH (08:29)
[2022-12-04] MEDS: REMEDY ESSENTIAL ZINC PASTE 113 GM TP SCH ×2 (08:29→20:16)
[2022-12-04] MEDS: HYDROGEN PEROXIDE 3% 118 ML BOTTLE TP SCH ×2 (09:39→21:00)
[2022-12-04] MEDS: JEVITY 1.2 1000 ML LIQUID GT PRN (14:47)
[2022-12-04] MEDS: PROTEIN SUPPLEMENT (PROSTAT) 30 ML LIQUID GT SCH (20:16)
[2022-12-04] MEDS: MULTIVIT, IRON, MIN NO. 8, FA TABLET GT SCH (20:16)
[2022-12-04 20:25] VITALS: TEMP 98.7
[2022-12-05] MEDS: ACIDOPHILUS/BULGARICUS CHEW TAB GT SCH ×2 (05:27→17:03)
[2022-12-05] MEDS: SIMETHICONE 80 MG TAB.CHEW GT SCH ×3 (05:27→17:03)
[2022-12-05] MEDS: NUTRISOURCE FIBER 4 GM PACKET GT SCH ×2 (05:27→17:03)
[2022-12-05] MEDS: OMEPRAZOLE 20 MG CAPSULE.DR GT SCH (05:27)
[2022-12-05] MEDS: BACLOFEN 10 MG TABLET GT SCH ×3 (05:27→22:33)
[2022-12-05 07:21] VITALS: TEMP 98.5
[2022-12-05] MEDS: ASCORBIC ACID 500 MG TABLET GT SCH (08:36)
[2022-12-05] MEDS: DULOXETINE 20 MG CAPSULE.DR GT SCH (08:36)
[2022-12-05] MEDS: FINASTERIDE 5 MG TABLET GT SCH (08:36)
[2022-12-05] MEDS: REMEDY ESSENTIAL ZINC PASTE 113 GM TP SCH ×2 (08:37→20:19)
[2022-12-05] MEDS: NEOMY/BACITRA/POLYMYXIN B OINT UD PACKET TP SCH (08:37)
[2022-12-05] MEDS: VITAMINS A AND D OINT 42 GM TUBE TP SCH (08:37)
[2022-12-05] MEDS: HYDROGEN PEROXIDE 3% 118 ML BOTTLE TP SCH ×2 (09:54→19:28)
[2022-12-05] MEDS: JEVITY 1.2 1000 ML LIQUID GT PRN (13:04)
[2022-12-05 19:50] VITALS: TEMP 98
[2022-12-05] MEDS: PROTEIN SUPPLEMENT (PROSTAT) 30 ML LIQUID GT SCH (20:18)
[2022-12-05] MEDS: MULTIVIT, IRON, MIN NO. 8, FA TABLET GT SCH (20:18)
[2022-12-06] MEDS: OMEPRAZOLE 20 MG CAPSULE.DR GT SCH (06:28)
[2022-12-06] MEDS: JEVITY 1.2 1000 ML LIQUID GT PRN (06:28)
[2022-12-06] MEDS: NUTRISOURCE FIBER 4 GM PACKET GT SCH ×2 (06:28→18:45)
[2022-12-06] MEDS: BACLOFEN 10 MG TABLET GT SCH ×3 (06:28→21:48)
[2022-12-06] MEDS: ACIDOPHILUS/BULGARICUS CHEW TAB GT SCH ×2 (06:28→18:45)
[2022-12-06] MEDS: SIMETHICONE 80 MG TAB.CHEW GT SCH ×4 (06:28→18:45)
[2022-12-06 07:26] VITALS: TEMP 98.2
[2022-12-06] MEDS: FINASTERIDE 5 MG TABLET GT SCH (09:00)
[2022-12-06] MEDS: ASCORBIC ACID 500 MG TABLET GT SCH (09:00)
[2022-12-06] MEDS: NEOMY/BACITRA/POLYMYXIN B OINT UD PACKET TP SCH (09:00)
[2022-12-06] MEDS: REMEDY ESSENTIAL ZINC PASTE 113 GM TP SCH ×2 (09:00→20:21)
[2022-12-06] MEDS: VITAMINS A AND D OINT 42 GM TUBE TP SCH (09:00)
[2022-12-06] MEDS: DULOXETINE 20 MG CAPSULE.DR GT SCH (09:00)
[2022-12-06] MEDS: HYDROGEN PEROXIDE 3% 118 ML BOTTLE TP SCH ×2 (09:22→21:55)
[2022-12-06 19:42] VITALS: TEMP 98.9
[2022-12-06] MEDS: PROTEIN SUPPLEMENT (PROSTAT) 30 ML LIQUID GT SCH (20:20)
[2022-12-06] MEDS: MULTIVIT, IRON, MIN NO. 8, FA TABLET GT SCH (20:20)
[2022-12-07] MEDS: JEVITY 1.2 1000 ML LIQUID GT PRN (01:50)
[2022-12-07] MEDS: BACLOFEN 10 MG TABLET GT SCH ×3 (06:15→22:20)
[2022-12-07] MEDS: NUTRISOURCE FIBER 4 GM PACKET GT SCH ×2 (06:15→17:06)
[2022-12-07] MEDS: ACIDOPHILUS/BULGARICUS CHEW TAB GT SCH ×2 (06:15→17:06)
[2022-12-07] MEDS: SIMETHICONE 80 MG TAB.CHEW GT SCH ×4 (06:15→17:06)
[2022-12-07] MEDS: OMEPRAZOLE 20 MG CAPSULE.DR GT SCH (06:15)
[2022-12-07 07:30] VITALS: TEMP 97.1
[2022-12-07 07:30] LABS: BASOPHILS % (AUTO) 0.3 % (0.0-2.0); EOSINOPHILS # (AUTO) 0.2 K/uL (0.0-0.7); HEMATOCRIT 36.5 % (36.7-47.1); HEMOGLOBIN 12.4 g/dL (12.5-16.3); LYMPHOCYTES # (AUTO) 1.8 K/uL (0.8-4.8); LYMPHOCYTES % (AUTO) 20.3 % (20.5-51.5); MEAN CORPUSCULAR HEMOGLOBIN 28.9 uug (23.8-33.4); MEAN CORPUSCULAR HGB CONC 34 g/dL (32.5-36.3); MEAN CORPUSCULAR VOLUME 84.9 fL (73.0-96.2); MONOCYTES # (AUTO) 0.6 K/uL (0.1-1.30); MONOCYTES % (AUTO) 6.8 % (0.0-11.0); NEUTROPHILS # (AUTO) 6.1 K/uL (1.8-8.9); NEUTROPHILS % (AUTO) 70.6 % (38.5-71.5); PLATELET COUNT (AUTO) 296 K/uL (152-348); RED CELL DISTRIBUTION WIDTH 13.7 % (12.1-16.2); WHITE BLOOD COUNT (AUTO) 8.7 K/uL (3.6-10.2)
[2022-12-07 07:48] LABS: CALCIUM 8.8 mg/dL (8.5-10.1); CREATININE 0.7 mg/dL (0.6-1.3); MAGNESIUM 2.1 mg/dL (1.8-2.4); PHOSPHOROUS 3.8 mg/dL (2.5-4.9); POTASSIUM 4.2 mmol/L (3.5-5.1)
[2022-12-07 07:50] LABS: DIFFERENTIAL COMMENT 1
[2022-12-07] MEDS: REMEDY ESSENTIAL ZINC PASTE 113 GM TP SCH ×2 (08:37→20:23)
[2022-12-07] MEDS: FINASTERIDE 5 MG TABLET GT SCH (08:37)
[2022-12-07] MEDS: ASCORBIC ACID 500 MG TABLET GT SCH (08:37)
[2022-12-07] MEDS: DULOXETINE 20 MG CAPSULE.DR GT SCH (08:37)
[2022-12-07] MEDS: POLYVINYL ALCOHOL OPHT DROPS 15 ML BOTTLE EACHEYE PRN (08:37)
[2022-12-07] MEDS: VITAMINS A AND D OINT 42 GM TUBE TP SCH (08:37)
[2022-12-07] MEDS: HYDROGEN PEROXIDE 3% 118 ML BOTTLE TP SCH ×2 (09:00→19:29)
[2022-12-07] MEDS ORDERED: DIATR MEGLU/DIATRIZOATE SODIUM 30 ML BOTTLE PO ONE (18:27)
[2022-12-07 19:52] VITALS: TEMP 99.1
[2022-12-07] MEDS: PROTEIN SUPPLEMENT (PROSTAT) 30 ML LIQUID GT SCH (20:22)
[2022-12-07] MEDS: MULTIVIT, IRON, MIN NO. 8, FA TABLET GT SCH (20:22)
[2022-12-08] MEDS: ACIDOPHILUS/BULGARICUS CHEW TAB GT SCH ×2 (06:17→17:16)
[2022-12-08] MEDS: SIMETHICONE 80 MG TAB.CHEW GT SCH ×5 (06:17→23:24)
[2022-12-08] MEDS: OMEPRAZOLE 20 MG CAPSULE.DR GT SCH (06:17)
[2022-12-08] MEDS: BACLOFEN 10 MG TABLET GT SCH ×3 (06:17→22:00)
[2022-12-08] MEDS: NUTRISOURCE FIBER 4 GM PACKET GT SCH ×2 (06:17→17:16)
[2022-12-08 07:59] VITALS: TEMP 98.6
[2022-12-08] MEDS: HYDROGEN PEROXIDE 3% 118 ML BOTTLE TP SCH ×2 (08:37→18:55)
[2022-12-08] MEDS: DULOXETINE 20 MG CAPSULE.DR GT SCH (09:13)
[2022-12-08] MEDS: ASCORBIC ACID 500 MG TABLET GT SCH (09:13)
[2022-12-08] MEDS: FINASTERIDE 5 MG TABLET GT SCH (09:13)
[2022-12-08] MEDS: REMEDY ESSENTIAL ZINC PASTE 113 GM TP SCH ×2 (09:14→21:00)
[2022-12-08] MEDS: VITAMINS A AND D OINT 42 GM TUBE TP SCH (09:14)
[2022-12-08] MEDS: JEVITY 1.2 1000 ML LIQUID GT PRN (12:41)
[2022-12-08 19:54] VITALS: TEMP 98
[2022-12-08] MEDS: PROTEIN SUPPLEMENT (PROSTAT) 30 ML LIQUID GT SCH (21:00)
[2022-12-08] MEDS: MULTIVIT, IRON, MIN NO. 8, FA TABLET GT SCH (21:00)
[2022-12-09] MEDS: NUTRISOURCE FIBER 4 GM PACKET GT SCH ×2 (06:35→18:06)
[2022-12-09] MEDS: SIMETHICONE 80 MG TAB.CHEW GT SCH ×4 (06:35→23:15)
[2022-12-09] MEDS: BACLOFEN 10 MG TABLET GT SCH ×3 (06:35→22:00)
[2022-12-09] MEDS: OMEPRAZOLE 20 MG CAPSULE.DR GT SCH (06:35)
[2022-12-09] MEDS: ACIDOPHILUS/BULGARICUS CHEW TAB GT SCH ×2 (06:35→18:06)
[2022-12-09] MEDS: HYDROGEN PEROXIDE 3% 118 ML BOTTLE TP SCH ×2 (07:31→21:28)
[2022-12-09 07:55] VITALS: TEMP 98
[2022-12-09] MEDS: FINASTERIDE 5 MG TABLET GT SCH (09:11)
[2022-12-09] MEDS: ASCORBIC ACID 500 MG TABLET GT SCH (09:11)
[2022-12-09] MEDS: REMEDY ESSENTIAL ZINC PASTE 113 GM TP SCH ×2 (09:11→20:44)
[2022-12-09] MEDS: DULOXETINE 20 MG CAPSULE.DR GT SCH (09:11)
[2022-12-09] MEDS: VITAMINS A AND D OINT 42 GM TUBE TP SCH (09:12)
[2022-12-09 19:49] VITALS: TEMP 98.4
[2022-12-09] MEDS: MULTIVIT, IRON, MIN NO. 8, FA TABLET GT SCH (20:43)
[2022-12-09] MEDS: PROTEIN SUPPLEMENT (PROSTAT) 30 ML LIQUID GT SCH (20:43)
[2022-12-10] MEDS: BACLOFEN 10 MG TABLET GT SCH ×3 (06:08→22:20)
[2022-12-10] MEDS: ACIDOPHILUS/BULGARICUS CHEW TAB GT SCH ×2 (06:08→17:00)
[2022-12-10] MEDS: NUTRISOURCE FIBER 4 GM PACKET GT SCH ×2 (06:08→17:00)
[2022-12-10] MEDS: OMEPRAZOLE 20 MG CAPSULE.DR GT SCH (06:09)
[2022-12-10] MEDS: SIMETHICONE 80 MG TAB.CHEW GT SCH ×3 (06:10→17:00)
[2022-12-10 07:50] VITALS: TEMP 98.4
[2022-12-10] MEDS: ASCORBIC ACID 500 MG TABLET GT SCH (08:52)
[2022-12-10] MEDS: DULOXETINE 20 MG CAPSULE.DR GT SCH (08:52)
[2022-12-10] MEDS: FINASTERIDE 5 MG TABLET GT SCH (08:52)
[2022-12-10] MEDS: REMEDY ESSENTIAL ZINC PASTE 113 GM TP SCH ×2 (08:53→21:00)
[2022-12-10] MEDS: VITAMINS A AND D OINT 42 GM TUBE TP SCH (08:53)
[2022-12-10] MEDS: HYDROGEN PEROXIDE 3% 118 ML BOTTLE TP SCH ×2 (09:00→21:13)
[2022-12-10 20:18] VITALS: TEMP 98.7
[2022-12-10] MEDS: MULTIVIT, IRON, MIN NO. 8, FA TABLET GT SCH (21:00)
[2022-12-10] MEDS: PROTEIN SUPPLEMENT (PROSTAT) 30 ML LIQUID GT SCH (21:00)
[2022-12-10] MEDS: JEVITY 1.2 1000 ML LIQUID GT PRN (22:21)
[2022-12-11] MEDS: SIMETHICONE 80 MG TAB.CHEW GT SCH ×4 (00:20→17:13)
[2022-12-11] MEDS: OMEPRAZOLE 20 MG CAPSULE.DR GT SCH (06:29)
[2022-12-11] MEDS: NUTRISOURCE FIBER 4 GM PACKET GT SCH ×2 (06:29→17:13)
[2022-12-11] MEDS: ACIDOPHILUS/BULGARICUS CHEW TAB GT SCH ×2 (06:29→17:13)
[2022-12-11] MEDS: BACLOFEN 10 MG TABLET GT SCH ×3 (06:29→22:00)
[2022-12-11 07:23] VITALS: TEMP 97.4
[2022-12-11] MEDS: VITAMINS A AND D OINT 42 GM TUBE TP SCH (09:00)
[2022-12-11] MEDS: REMEDY ESSENTIAL ZINC PASTE 113 GM TP SCH ×2 (09:00→21:00)
[2022-12-11] MEDS: HYDROGEN PEROXIDE 3% 118 ML BOTTLE TP SCH ×2 (09:10→21:02)
[2022-12-11] MEDS: FINASTERIDE 5 MG TABLET GT SCH (10:30)
[2022-12-11] MEDS: ASCORBIC ACID 500 MG TABLET GT SCH (10:30)
[2022-12-11] MEDS: DULOXETINE 20 MG CAPSULE.DR GT SCH (10:30)
[2022-12-11 20:38] VITALS: TEMP 98.5
[2022-12-11] MEDS: MULTIVIT, IRON, MIN NO. 8, FA TABLET GT SCH (21:00)
[2022-12-11] MEDS: PROTEIN SUPPLEMENT (PROSTAT) 30 ML LIQUID GT SCH (21:00)
[2022-12-12] MEDS: SIMETHICONE 80 MG TAB.CHEW GT SCH ×4 (00:43→17:44)
[2022-12-12] MEDS: OMEPRAZOLE 20 MG CAPSULE.DR GT SCH (06:00)
[2022-12-12] MEDS: NUTRISOURCE FIBER 4 GM PACKET GT SCH ×2 (06:00→17:44)
[2022-12-12] MEDS: BACLOFEN 10 MG TABLET GT SCH ×3 (06:00→22:42)
[2022-12-12] MEDS: ACIDOPHILUS/BULGARICUS CHEW TAB GT SCH ×2 (06:00→17:44)
[2022-12-12 07:10] VITALS: TEMP 98.5
[2022-12-12] MEDS: HYDROGEN PEROXIDE 3% 118 ML BOTTLE TP SCH ×2 (07:37→21:00)
[2022-12-12] MEDS: ASCORBIC ACID 500 MG TABLET GT SCH (09:00)
[2022-12-12] MEDS: DULOXETINE 20 MG CAPSULE.DR GT SCH (09:00)
[2022-12-12] MEDS: REMEDY ESSENTIAL ZINC PASTE 113 GM TP SCH ×2 (09:00→21:00)
[2022-12-12] MEDS: FINASTERIDE 5 MG TABLET GT SCH (09:00)
[2022-12-12] MEDS: VITAMINS A AND D OINT 42 GM TUBE TP SCH (09:00)
[2022-12-12 20:12] VITALS: TEMP 98.5
[2022-12-12] MEDS: PROTEIN SUPPLEMENT (PROSTAT) 30 ML LIQUID GT SCH (21:00)
[2022-12-12] MEDS: MULTIVIT, IRON, MIN NO. 8, FA TABLET GT SCH (21:00)
[2022-12-13] MEDS: BACLOFEN 10 MG TABLET GT SCH ×3 (06:56→22:40)
[2022-12-13] MEDS: ACIDOPHILUS/BULGARICUS CHEW TAB GT SCH ×2 (06:56→17:13)
[2022-12-13] MEDS: NUTRISOURCE FIBER 4 GM PACKET GT SCH ×2 (06:56→17:13)
[2022-12-13] MEDS: OMEPRAZOLE 20 MG CAPSULE.DR GT SCH (06:56)
[2022-12-13] MEDS: SIMETHICONE 80 MG TAB.CHEW GT SCH ×4 (06:56→17:13)
[2022-12-13 07:23] VITALS: TEMP 97.7
[2022-12-13] MEDS: DULOXETINE 20 MG CAPSULE.DR GT SCH (08:42)
[2022-12-13] MEDS: FINASTERIDE 5 MG TABLET GT SCH (08:42)
[2022-12-13] MEDS: ASCORBIC ACID 500 MG TABLET GT SCH (08:43)
[2022-12-13] MEDS: VITAMINS A AND D OINT 42 GM TUBE TP SCH (08:44)
[2022-12-13] MEDS: REMEDY ESSENTIAL ZINC PASTE 113 GM TP SCH ×2 (08:44→21:00)
[2022-12-13] MEDS: HYDROGEN PEROXIDE 3% 118 ML BOTTLE TP SCH ×2 (09:07→21:43)
[2022-12-13 20:42] VITALS: TEMP 98.6
[2022-12-13] MEDS: MULTIVIT, IRON, MIN NO. 8, FA TABLET GT SCH (21:00)
[2022-12-13] MEDS: PROTEIN SUPPLEMENT (PROSTAT) 30 ML LIQUID GT SCH (21:00)
[2022-12-14] MEDS: SIMETHICONE 80 MG TAB.CHEW GT SCH ×4 (00:19→18:15)
[2022-12-14] MEDS: ACIDOPHILUS/BULGARICUS CHEW TAB GT SCH ×2 (06:35→18:15)
[2022-12-14] MEDS: NUTRISOURCE FIBER 4 GM PACKET GT SCH ×2 (06:35→18:15)
[2022-12-14] MEDS: OMEPRAZOLE 20 MG CAPSULE.DR GT SCH (06:35)
[2022-12-14] MEDS: BACLOFEN 10 MG TABLET GT SCH ×3 (06:35→22:07)
[2022-12-14 07:53] VITALS: TEMP 97.6
[2022-12-14] MEDS: DULOXETINE 20 MG CAPSULE.DR GT SCH (08:43)
[2022-12-14] MEDS: FINASTERIDE 5 MG TABLET GT SCH (08:43)
[2022-12-14] MEDS: ASCORBIC ACID 500 MG TABLET GT SCH (08:44)
[2022-12-14] MEDS: REMEDY ESSENTIAL ZINC PASTE 113 GM TP SCH ×2 (08:45→20:30)
[2022-12-14] MEDS: VITAMINS A AND D OINT 42 GM TUBE TP SCH (08:45)
[2022-12-14] MEDS: HYDROGEN PEROXIDE 3% 118 ML BOTTLE TP SCH ×2 (09:16→20:50)
[2022-12-14 19:55] VITALS: TEMP 98.8
[2022-12-14] MEDS: MULTIVIT, IRON, MIN NO. 8, FA TABLET GT SCH (20:30)
[2022-12-14] MEDS: PROTEIN SUPPLEMENT (PROSTAT) 30 ML LIQUID GT SCH (20:30)
[2022-12-15] MEDS: SIMETHICONE 80 MG TAB.CHEW GT SCH ×4 (00:46→17:27)
[2022-12-15] MEDS: JEVITY 1.2 1000 ML LIQUID GT PRN ×2 (02:58→22:44)
[2022-12-15] MEDS: ACIDOPHILUS/BULGARICUS CHEW TAB GT SCH ×2 (06:24→17:27)
[2022-12-15] MEDS: OMEPRAZOLE 20 MG CAPSULE.DR GT SCH (06:24)
[2022-12-15] MEDS: NUTRISOURCE FIBER 4 GM PACKET GT SCH ×2 (06:24→17:27)
[2022-12-15] MEDS: BACLOFEN 10 MG TABLET GT SCH ×3 (06:24→22:14)
[2022-12-15] MEDS: HYDROGEN PEROXIDE 3% 118 ML BOTTLE TP SCH ×2 (07:27→21:25)
[2022-12-15 07:46] VITALS: TEMP 97.7
[2022-12-15] MEDS: VITAMINS A AND D OINT 42 GM TUBE TP SCH (09:12)
[2022-12-15] MEDS: REMEDY ESSENTIAL ZINC PASTE 113 GM TP SCH ×2 (09:12→20:31)
[2022-12-15] MEDS: DULOXETINE 20 MG CAPSULE.DR GT SCH (09:12)
[2022-12-15] MEDS: ASCORBIC ACID 500 MG TABLET GT SCH (09:12)
[2022-12-15] MEDS: FINASTERIDE 5 MG TABLET GT SCH (09:12)
[2022-12-15 15:10] VITALS: O2SAT 99
[2022-12-15 20:00] VITALS: TEMP 98.8
[2022-12-15] MEDS: PROTEIN SUPPLEMENT (PROSTAT) 30 ML LIQUID GT SCH (20:31)
[2022-12-15] MEDS: MULTIVIT, IRON, MIN NO. 8, FA TABLET GT SCH (20:31)
[2022-12-16] MEDS: ACIDOPHILUS/BULGARICUS CHEW TAB GT SCH ×2 (05:30→17:51)
[2022-12-16] MEDS: OMEPRAZOLE 20 MG CAPSULE.DR GT SCH (05:30)
[2022-12-16] MEDS: BACLOFEN 10 MG TABLET GT SCH ×3 (05:30→22:00)
[2022-12-16] MEDS: SIMETHICONE 80 MG TAB.CHEW GT SCH ×5 (05:30→23:07)
[2022-12-16] MEDS: NUTRISOURCE FIBER 4 GM PACKET GT SCH ×2 (05:30→17:51)
[2022-12-16] MEDS: HYDROGEN PEROXIDE 3% 118 ML BOTTLE TP SCH ×2 (07:20→21:02)
[2022-12-16 07:44] VITALS: TEMP 98.8
[2022-12-16] MEDS: REMEDY ESSENTIAL ZINC PASTE 113 GM TP SCH ×2 (09:02→20:05)
[2022-12-16] MEDS: FINASTERIDE 5 MG TABLET GT SCH (09:02)
[2022-12-16] MEDS: ASCORBIC ACID 500 MG TABLET GT SCH (09:02)
[2022-12-16] MEDS: DULOXETINE 20 MG CAPSULE.DR GT SCH (09:02)
[2022-12-16] MEDS: VITAMINS A AND D OINT 42 GM TUBE TP SCH (09:03)
[2022-12-16] MEDS: HARRIS FLUSH ENEMA PR PRN (17:51)
[2022-12-16] MEDS: JEVITY 1.2 1000 ML LIQUID GT PRN (17:51)
[2022-12-16 20:00] VITALS: TEMP 98.4
[2022-12-16] MEDS: MULTIVIT, IRON, MIN NO. 8, FA TABLET GT SCH (20:05)
[2022-12-16] MEDS: PROTEIN SUPPLEMENT (PROSTAT) 30 ML LIQUID GT SCH (20:05)
[2022-12-17] MEDS: ACIDOPHILUS/BULGARICUS CHEW TAB GT SCH ×2 (05:17→17:05)
[2022-12-17] MEDS: BACLOFEN 10 MG TABLET GT SCH ×3 (05:17→22:00)
[2022-12-17] MEDS: OMEPRAZOLE 20 MG CAPSULE.DR GT SCH (05:18)
[2022-12-17] MEDS: SIMETHICONE 80 MG TAB.CHEW GT SCH ×3 (05:18→17:05)
[2022-12-17] MEDS: NUTRISOURCE FIBER 4 GM PACKET GT SCH ×2 (05:18→17:05)
[2022-12-17 07:51] VITALS: TEMP 97.8
[2022-12-17] MEDS: HYDROGEN PEROXIDE 3% 118 ML BOTTLE TP SCH ×2 (08:13→21:08)
[2022-12-17] MEDS: DULOXETINE 20 MG CAPSULE.DR GT SCH (09:20)
[2022-12-17] MEDS: FINASTERIDE 5 MG TABLET GT SCH (09:20)
[2022-12-17] MEDS: VITAMINS A AND D OINT 42 GM TUBE TP SCH (09:20)
[2022-12-17] MEDS: ASCORBIC ACID 500 MG TABLET GT SCH (09:20)
[2022-12-17] MEDS: REMEDY ESSENTIAL ZINC PASTE 113 GM TP SCH ×2 (09:20→21:00)
[2022-12-17] MEDS: PROTEIN SUPPLEMENT (PROSTAT) 30 ML LIQUID GT SCH (21:00)
[2022-12-17] MEDS: MULTIVIT, IRON, MIN NO. 8, FA TABLET GT SCH (21:00)
[2022-12-18] MEDS: SIMETHICONE 80 MG TAB.CHEW GT SCH ×5 (00:50→23:48)
[2022-12-18] MEDS: BACLOFEN 10 MG TABLET GT SCH ×3 (06:00→21:57)
[2022-12-18] MEDS: NUTRISOURCE FIBER 4 GM PACKET GT SCH ×2 (06:00→17:11)
[2022-12-18] MEDS: OMEPRAZOLE 20 MG CAPSULE.DR GT SCH (06:00)
[2022-12-18] MEDS: ACIDOPHILUS/BULGARICUS CHEW TAB GT SCH ×2 (06:00→17:11)
[2022-12-18 08:03] VITALS: TEMP 98.9
[2022-12-18] MEDS: DULOXETINE 20 MG CAPSULE.DR GT SCH (08:21)
[2022-12-18] MEDS: FINASTERIDE 5 MG TABLET GT SCH (08:21)
[2022-12-18] MEDS: VITAMINS A AND D OINT 42 GM TUBE TP SCH (08:21)
[2022-12-18] MEDS: POLYVINYL ALCOHOL OPHT DROPS 15 ML BOTTLE EACHEYE PRN (08:21)
[2022-12-18] MEDS: REMEDY ESSENTIAL ZINC PASTE 113 GM TP SCH ×2 (08:21→20:29)
[2022-12-18] MEDS: ASCORBIC ACID 500 MG TABLET GT SCH (08:21)
[2022-12-18] MEDS: HYDROGEN PEROXIDE 3% 118 ML BOTTLE TP SCH ×2 (09:38→21:57)
[2022-12-18 20:00] VITALS: TEMP 98
[2022-12-18] MEDS: PROTEIN SUPPLEMENT (PROSTAT) 30 ML LIQUID GT SCH (20:29)
[2022-12-18] MEDS: MULTIVIT, IRON, MIN NO. 8, FA TABLET GT SCH (20:29)
[2022-12-19] MEDS: ACIDOPHILUS/BULGARICUS CHEW TAB GT SCH ×2 (06:05→17:27)
[2022-12-19] MEDS: NUTRISOURCE FIBER 4 GM PACKET GT SCH ×2 (06:05→17:27)
[2022-12-19] MEDS: SIMETHICONE 80 MG TAB.CHEW GT SCH ×3 (06:05→17:27)
[2022-12-19] MEDS: OMEPRAZOLE 20 MG CAPSULE.DR GT SCH (06:05)
[2022-12-19] MEDS: BACLOFEN 10 MG TABLET GT SCH ×3 (06:05→22:14)
[2022-12-19 07:19] VITALS: TEMP 98.4
[2022-12-19] MEDS: ASCORBIC ACID 500 MG TABLET GT SCH (08:21)
[2022-12-19] MEDS: DULOXETINE 20 MG CAPSULE.DR GT SCH (08:21)
[2022-12-19] MEDS: REMEDY ESSENTIAL ZINC PASTE 113 GM TP SCH ×2 (08:21→20:21)
[2022-12-19] MEDS: FINASTERIDE 5 MG TABLET GT SCH (08:21)
[2022-12-19] MEDS: VITAMINS A AND D OINT 42 GM TUBE TP SCH (08:22)
[2022-12-19] MEDS: HYDROGEN PEROXIDE 3% 118 ML BOTTLE TP SCH ×2 (08:35→21:11)
[2022-12-19 20:00] VITALS: TEMP 97.9
[2022-12-19] MEDS: PROTEIN SUPPLEMENT (PROSTAT) 30 ML LIQUID GT SCH (20:20)
[2022-12-19] MEDS: MULTIVIT, IRON, MIN NO. 8, FA TABLET GT SCH (20:21)
[2022-12-20] MEDS: SIMETHICONE 80 MG TAB.CHEW GT SCH ×4 (00:05→18:20)
[2022-12-20] MEDS: JEVITY 1.2 1000 ML LIQUID GT PRN (01:25)
[2022-12-20] MEDS: ACIDOPHILUS/BULGARICUS CHEW TAB GT SCH ×2 (05:49→18:20)
[2022-12-20] MEDS: BACLOFEN 10 MG TABLET GT SCH ×3 (05:50→22:28)
[2022-12-20] MEDS: NUTRISOURCE FIBER 4 GM PACKET GT SCH ×2 (05:50→18:20)
[2022-12-20] MEDS: OMEPRAZOLE 20 MG CAPSULE.DR GT SCH (05:50)
[2022-12-20 08:00] VITALS: TEMP 98.2
[2022-12-20] MEDS: HYDROGEN PEROXIDE 3% 118 ML BOTTLE TP SCH ×2 (08:16→21:19)
[2022-12-20] MEDS: FINASTERIDE 5 MG TABLET GT SCH (08:21)
[2022-12-20] MEDS: REMEDY ESSENTIAL ZINC PASTE 113 GM TP SCH ×2 (08:21→20:29)
[2022-12-20] MEDS: VITAMINS A AND D OINT 42 GM TUBE TP SCH (08:21)
[2022-12-20] MEDS: ASCORBIC ACID 500 MG TABLET GT SCH (08:21)
[2022-12-20] MEDS: DULOXETINE 20 MG CAPSULE.DR GT SCH (08:21)
[2022-12-20 20:00] VITALS: TEMP 98
[2022-12-20] MEDS: MULTIVIT, IRON, MIN NO. 8, FA TABLET GT SCH (20:29)
[2022-12-20] MEDS: PROTEIN SUPPLEMENT (PROSTAT) 30 ML LIQUID GT SCH (20:30)
[2022-12-21] MEDS: SIMETHICONE 80 MG TAB.CHEW GT SCH ×4 (00:27→17:28)
[2022-12-21] MEDS: JEVITY 1.2 1000 ML LIQUID GT PRN (03:20)
[2022-12-21] MEDS: NUTRISOURCE FIBER 4 GM PACKET GT SCH ×2 (05:59→17:28)
[2022-12-21] MEDS: BACLOFEN 10 MG TABLET GT SCH ×3 (05:59→21:40)
[2022-12-21] MEDS: ACIDOPHILUS/BULGARICUS CHEW TAB GT SCH ×2 (05:59→17:28)
[2022-12-21] MEDS: OMEPRAZOLE 20 MG CAPSULE.DR GT SCH (05:59)
[2022-12-21] MEDS: HYDROGEN PEROXIDE 3% 118 ML BOTTLE TP SCH ×2 (07:21→19:10)
[2022-12-21 07:41] VITALS: TEMP 97.6
[2022-12-21] MEDS: ASCORBIC ACID 500 MG TABLET GT SCH (08:42)
[2022-12-21] MEDS: VITAMINS A AND D OINT 42 GM TUBE TP SCH (08:42)
[2022-12-21] MEDS: DULOXETINE 20 MG CAPSULE.DR GT SCH (08:42)
[2022-12-21] MEDS: REMEDY ESSENTIAL ZINC PASTE 113 GM TP SCH ×2 (08:42→20:06)
[2022-12-21] MEDS: FINASTERIDE 5 MG TABLET GT SCH (08:42)
[2022-12-21 20:00] VITALS: TEMP 98.1
[2022-12-21] MEDS: PROTEIN SUPPLEMENT (PROSTAT) 30 ML LIQUID GT SCH (20:06)
[2022-12-21] MEDS: MULTIVIT, IRON, MIN NO. 8, FA TABLET GT SCH (20:06)
[2022-12-22] MEDS: SIMETHICONE 80 MG TAB.CHEW GT SCH ×4 (00:35→17:16)
[2022-12-22] MEDS: BACLOFEN 10 MG TABLET GT SCH ×3 (06:02→22:15)
[2022-12-22] MEDS: NUTRISOURCE FIBER 4 GM PACKET GT SCH ×2 (06:02→17:16)
[2022-12-22] MEDS: ACIDOPHILUS/BULGARICUS CHEW TAB GT SCH ×2 (06:02→17:16)
[2022-12-22] MEDS: OMEPRAZOLE 20 MG CAPSULE.DR GT SCH (06:02)
[2022-12-22 07:52] VITALS: TEMP 97.9
[2022-12-22] MEDS: HYDROGEN PEROXIDE 3% 118 ML BOTTLE TP SCH ×2 (09:00→19:17)
[2022-12-22] MEDS: FINASTERIDE 5 MG TABLET GT SCH (09:15)
[2022-12-22] MEDS: DULOXETINE 20 MG CAPSULE.DR GT SCH (09:15)
[2022-12-22] MEDS: ASCORBIC ACID 500 MG TABLET GT SCH (09:15)
[2022-12-22] MEDS: VITAMINS A AND D OINT 42 GM TUBE TP SCH (09:15)
[2022-12-22] MEDS: REMEDY ESSENTIAL ZINC PASTE 113 GM TP SCH ×2 (09:15→20:37)
[2022-12-22] MEDS: JEVITY 1.2 1000 ML LIQUID GT PRN (09:33)
[2022-12-22] MEDS: MAGNESIUM HYDROXIDE 30 ML LIQUID UDC GT PRN (15:20)
[2022-12-22] MEDS: HARRIS FLUSH ENEMA PR PRN (17:08)
[2022-12-22] MEDS: PROTEIN SUPPLEMENT (PROSTAT) 30 ML LIQUID GT SCH (20:37)
[2022-12-22] MEDS: MULTIVIT, IRON, MIN NO. 8, FA TABLET GT SCH (20:37)
[2022-12-22 20:47] VITALS: TEMP 99.2
[2022-12-23] MEDS: SIMETHICONE 80 MG TAB.CHEW GT SCH ×4 (00:17→17:37)
[2022-12-23] MEDS: ACIDOPHILUS/BULGARICUS CHEW TAB GT SCH ×2 (05:20→17:37)
[2022-12-23] MEDS: NUTRISOURCE FIBER 4 GM PACKET GT SCH ×2 (05:20→17:37)
[2022-12-23] MEDS: BACLOFEN 10 MG TABLET GT SCH ×3 (05:20→22:05)
[2022-12-23] MEDS: OMEPRAZOLE 20 MG CAPSULE.DR GT SCH (05:20)
[2022-12-23 08:00] VITALS: TEMP 98.8
[2022-12-23] MEDS: HYDROGEN PEROXIDE 3% 118 ML BOTTLE TP SCH ×2 (08:17→20:56)
[2022-12-23] MEDS: DULOXETINE 20 MG CAPSULE.DR GT SCH (08:52)
[2022-12-23] MEDS: VITAMINS A AND D OINT 42 GM TUBE TP SCH (08:52)
[2022-12-23] MEDS: REMEDY ESSENTIAL ZINC PASTE 113 GM TP SCH ×2 (08:52→20:35)
[2022-12-23] MEDS: ASCORBIC ACID 500 MG TABLET GT SCH (08:52)
[2022-12-23] MEDS: FINASTERIDE 5 MG TABLET GT SCH (08:52)
[2022-12-23 20:18] VITALS: TEMP 98.9
[2022-12-23] MEDS: PROTEIN SUPPLEMENT (PROSTAT) 30 ML LIQUID GT SCH (20:35)
[2022-12-23] MEDS: MULTIVIT, IRON, MIN NO. 8, FA TABLET GT SCH (20:35)
[2022-12-23] MEDS: JEVITY 1.2 1000 ML LIQUID GT PRN (22:48)
[2022-12-24] MEDS: SIMETHICONE 80 MG TAB.CHEW GT SCH ×5 (00:49→23:32)
[2022-12-24] MEDS: OMEPRAZOLE 20 MG CAPSULE.DR GT SCH (05:46)
[2022-12-24] MEDS: ACIDOPHILUS/BULGARICUS CHEW TAB GT SCH ×2 (05:46→17:19)
[2022-12-24] MEDS: NUTRISOURCE FIBER 4 GM PACKET GT SCH ×2 (05:46→17:19)
[2022-12-24] MEDS: BACLOFEN 10 MG TABLET GT SCH ×3 (05:46→22:00)
[2022-12-24 07:33] VITALS: TEMP 97.8
[2022-12-24] MEDS: HYDROGEN PEROXIDE 3% 118 ML BOTTLE TP SCH ×2 (08:35→21:00)
[2022-12-24] MEDS: DULOXETINE 20 MG CAPSULE.DR GT SCH (09:09)
[2022-12-24] MEDS: VITAMINS A AND D OINT 42 GM TUBE TP SCH (09:09)
[2022-12-24] MEDS: ASCORBIC ACID 500 MG TABLET GT SCH (09:09)
[2022-12-24] MEDS: FINASTERIDE 5 MG TABLET GT SCH (09:09)
[2022-12-24] MEDS: REMEDY ESSENTIAL ZINC PASTE 113 GM TP SCH ×2 (09:09→21:00)
[2022-12-24 20:50] VITALS: TEMP 98
[2022-12-24] MEDS: PROTEIN SUPPLEMENT (PROSTAT) 30 ML LIQUID GT SCH (21:00)
[2022-12-24] MEDS: MULTIVIT, IRON, MIN NO. 8, FA TABLET GT SCH (21:00)
[2022-12-25] MEDS: ACIDOPHILUS/BULGARICUS CHEW TAB GT SCH ×2 (05:52→17:28)
[2022-12-25] MEDS: BACLOFEN 10 MG TABLET GT SCH ×3 (05:52→22:06)
[2022-12-25] MEDS: SIMETHICONE 80 MG TAB.CHEW GT SCH ×3 (05:55→17:28)
[2022-12-25] MEDS: OMEPRAZOLE 20 MG CAPSULE.DR GT SCH (05:55)
[2022-12-25] MEDS: NUTRISOURCE FIBER 4 GM PACKET GT SCH ×2 (05:57→17:28)
[2022-12-25 08:00] VITALS: TEMP 98
[2022-12-25] MEDS: ASCORBIC ACID 500 MG TABLET GT SCH (08:45)
[2022-12-25] MEDS: DULOXETINE 20 MG CAPSULE.DR GT SCH (08:45)
[2022-12-25] MEDS: FINASTERIDE 5 MG TABLET GT SCH (08:45)
[2022-12-25] MEDS: VITAMINS A AND D OINT 42 GM TUBE TP SCH (08:45)
[2022-12-25] MEDS: REMEDY ESSENTIAL ZINC PASTE 113 GM TP SCH ×2 (08:45→20:01)
[2022-12-25] MEDS: HYDROGEN PEROXIDE 3% 118 ML BOTTLE TP SCH ×2 (09:00→21:00)
[2022-12-25] MEDS: MULTIVIT, IRON, MIN NO. 8, FA TABLET GT SCH (20:01)
[2022-12-25] MEDS: PROTEIN SUPPLEMENT (PROSTAT) 30 ML LIQUID GT SCH (20:01)
[2022-12-25 20:19] VITALS: TEMP 98.8
[2022-12-26] MEDS: BACLOFEN 10 MG TABLET GT SCH ×3 (05:13→21:56)
[2022-12-26] MEDS: ACIDOPHILUS/BULGARICUS CHEW TAB GT SCH ×2 (05:13→17:34)
[2022-12-26] MEDS: SIMETHICONE 80 MG TAB.CHEW GT SCH ×4 (05:13→17:34)
[2022-12-26] MEDS: OMEPRAZOLE 20 MG CAPSULE.DR GT SCH (05:13)
[2022-12-26] MEDS: NUTRISOURCE FIBER 4 GM PACKET GT SCH ×2 (05:13→17:34)
[2022-12-26] MEDS: HYDROGEN PEROXIDE 3% 118 ML BOTTLE TP SCH ×2 (07:43→20:47)
[2022-12-26 08:00] VITALS: TEMP 98
[2022-12-26] MEDS: REMEDY ESSENTIAL ZINC PASTE 113 GM TP SCH ×2 (08:35→20:12)
[2022-12-26] MEDS: VITAMINS A AND D OINT 42 GM TUBE TP SCH (08:35)
[2022-12-26] MEDS: ASCORBIC ACID 500 MG TABLET GT SCH (08:35)
[2022-12-26] MEDS: DULOXETINE 20 MG CAPSULE.DR GT SCH (08:35)
[2022-12-26] MEDS: FINASTERIDE 5 MG TABLET GT SCH (08:35)
[2022-12-26] MEDS: PROTEIN SUPPLEMENT (PROSTAT) 30 ML LIQUID GT SCH (20:12)
[2022-12-26] MEDS: MULTIVIT, IRON, MIN NO. 8, FA TABLET GT SCH (20:12)
[2022-12-26 20:28] VITALS: TEMP 99.4
[2022-12-27] MEDS: SIMETHICONE 80 MG TAB.CHEW GT SCH ×5 (00:45→23:59)
[2022-12-27] MEDS: JEVITY 1.2 1000 ML LIQUID GT PRN (00:58)
[2022-12-27] MEDS: BACLOFEN 10 MG TABLET GT SCH ×3 (05:16→22:26)
[2022-12-27] MEDS: NUTRISOURCE FIBER 4 GM PACKET GT SCH ×2 (05:16→17:45)
[2022-12-27] MEDS: ACIDOPHILUS/BULGARICUS CHEW TAB GT SCH ×2 (05:16→17:45)
[2022-12-27] MEDS: OMEPRAZOLE 20 MG CAPSULE.DR GT SCH (05:16)
[2022-12-27 07:39] VITALS: TEMP 97.5
[2022-12-27] MEDS: HYDROGEN PEROXIDE 3% 118 ML BOTTLE TP SCH ×2 (08:09→21:00)
[2022-12-27] MEDS: ASCORBIC ACID 500 MG TABLET GT SCH (08:46)
[2022-12-27] MEDS: REMEDY ESSENTIAL ZINC PASTE 113 GM TP SCH ×2 (08:46→21:00)
[2022-12-27] MEDS: DULOXETINE 20 MG CAPSULE.DR GT SCH (08:46)
[2022-12-27] MEDS: FINASTERIDE 5 MG TABLET GT SCH (08:46)
[2022-12-27] MEDS: VITAMINS A AND D OINT 42 GM TUBE TP SCH (08:47)
[2022-12-27] MEDS: PROTEIN SUPPLEMENT (PROSTAT) 30 ML LIQUID GT SCH (21:00)
[2022-12-27] MEDS: MULTIVIT, IRON, MIN NO. 8, FA TABLET GT SCH (21:20)
[2022-12-27 21:26] VITALS: TEMP 98.4
[2022-12-28] MEDS: BACLOFEN 10 MG TABLET GT SCH ×3 (06:51→22:09)
[2022-12-28] MEDS: ACIDOPHILUS/BULGARICUS CHEW TAB GT SCH ×2 (06:51→18:27)
[2022-12-28] MEDS: NUTRISOURCE FIBER 4 GM PACKET GT SCH ×2 (06:52→18:27)
[2022-12-28] MEDS: SIMETHICONE 80 MG TAB.CHEW GT SCH ×3 (06:52→18:27)
[2022-12-28] MEDS: OMEPRAZOLE 20 MG CAPSULE.DR GT SCH (06:53)
[2022-12-28 07:55] VITALS: TEMP 98.7
[2022-12-28 07:56] VITALS: TEMP 98.6
[2022-12-28] MEDS: HYDROGEN PEROXIDE 3% 118 ML BOTTLE TP SCH ×2 (08:42→19:16)
[2022-12-28] MEDS: FINASTERIDE 5 MG TABLET GT SCH (08:54)
[2022-12-28] MEDS: VITAMINS A AND D OINT 42 GM TUBE TP SCH (08:54)
[2022-12-28] MEDS: DULOXETINE 20 MG CAPSULE.DR GT SCH (08:54)
[2022-12-28] MEDS: ASCORBIC ACID 500 MG TABLET GT SCH (08:54)
[2022-12-28] MEDS: REMEDY ESSENTIAL ZINC PASTE 113 GM TP SCH ×2 (08:54→20:22)
[2022-12-28 20:01] VITALS: TEMP 98.6
[2022-12-28] MEDS: MULTIVIT, IRON, MIN NO. 8, FA TABLET GT SCH (20:22)
[2022-12-28] MEDS: PROTEIN SUPPLEMENT (PROSTAT) 30 ML LIQUID GT SCH (20:22)
[2022-12-29] MEDS: SIMETHICONE 80 MG TAB.CHEW GT SCH ×4 (00:56→18:13)
[2022-12-29] MEDS: OMEPRAZOLE 20 MG CAPSULE.DR GT SCH (05:11)
[2022-12-29] MEDS: BACLOFEN 10 MG TABLET GT SCH ×3 (05:11→21:19)
[2022-12-29] MEDS: NUTRISOURCE FIBER 4 GM PACKET GT SCH ×2 (05:11→18:13)
[2022-12-29] MEDS: ACIDOPHILUS/BULGARICUS CHEW TAB GT SCH ×2 (05:11→18:13)
[2022-12-29 08:00] VITALS: TEMP 98
[2022-12-29] MEDS: VITAMINS A AND D OINT 42 GM TUBE TP SCH (09:00)
[2022-12-29] MEDS: FINASTERIDE 5 MG TABLET GT SCH (09:00)
[2022-12-29] MEDS: REMEDY ESSENTIAL ZINC PASTE 113 GM TP SCH ×2 (09:00→21:18)
[2022-12-29] MEDS: DULOXETINE 20 MG CAPSULE.DR GT SCH (09:00)
[2022-12-29] MEDS: ASCORBIC ACID 500 MG TABLET GT SCH (09:00)
[2022-12-29] MEDS: HYDROGEN PEROXIDE 3% 118 ML BOTTLE TP SCH ×2 (09:00→21:55)
[2022-12-29] MEDS: ACETAMINOPHEN 650 MG/20 ML UDC- SA PATIENTS-PAIN ONLY GT PRN (11:25)
[2022-12-29 20:38] VITALS: TEMP 97.5
[2022-12-29] MEDS: PROTEIN SUPPLEMENT (PROSTAT) 30 ML LIQUID GT SCH (21:00)
[2022-12-29] MEDS: MULTIVIT, IRON, MIN NO. 8, FA TABLET GT SCH (21:18)
[2022-12-30] MEDS: ACIDOPHILUS/BULGARICUS CHEW TAB GT SCH ×2 (06:08→17:18)
[2022-12-30] MEDS: SIMETHICONE 80 MG TAB.CHEW GT SCH ×5 (06:08→23:22)
[2022-12-30] MEDS: OMEPRAZOLE 20 MG CAPSULE.DR GT SCH (06:09)
[2022-12-30] MEDS: BACLOFEN 10 MG TABLET GT SCH ×3 (06:09→22:00)
[2022-12-30] MEDS: NUTRISOURCE FIBER 4 GM PACKET GT SCH ×2 (06:09→17:18)
[2022-12-30] MEDS: JEVITY 1.2 1000 ML LIQUID GT PRN ×2 (06:14→23:24)
[2022-12-30 07:45] VITALS: TEMP 97.3
[2022-12-30] MEDS: ASCORBIC ACID 500 MG TABLET GT SCH (08:09)
[2022-12-30] MEDS: DULOXETINE 20 MG CAPSULE.DR GT SCH (08:09)
[2022-12-30] MEDS: FINASTERIDE 5 MG TABLET GT SCH (08:09)
[2022-12-30] MEDS: REMEDY ESSENTIAL ZINC PASTE 113 GM TP SCH ×2 (08:10→20:50)
[2022-12-30] MEDS: VITAMINS A AND D OINT 42 GM TUBE TP SCH (08:10)
[2022-12-30] MEDS: HYDROGEN PEROXIDE 3% 118 ML BOTTLE TP SCH ×2 (08:36→18:08)
[2022-12-30 20:00] VITALS: TEMP 98
[2022-12-30] MEDS: PROTEIN SUPPLEMENT (PROSTAT) 30 ML LIQUID GT SCH (20:50)
[2022-12-30] MEDS: MULTIVIT, IRON, MIN NO. 8, FA TABLET GT SCH (20:50)
[2022-12-31] MEDS: SIMETHICONE 80 MG TAB.CHEW GT SCH ×4 (06:00→23:00)
[2022-12-31] MEDS: NUTRISOURCE FIBER 4 GM PACKET GT SCH ×2 (06:00→17:43)
[2022-12-31] MEDS: BACLOFEN 10 MG TABLET GT SCH ×3 (06:00→22:58)
[2022-12-31] MEDS: OMEPRAZOLE 20 MG CAPSULE.DR GT SCH (06:00)
[2022-12-31] MEDS: ACIDOPHILUS/BULGARICUS CHEW TAB GT SCH ×2 (06:00→17:43)
[2022-12-31] MEDS ORDERED: DIATR MEGLU/DIATRIZOATE SODIUM 30 ML BOTTLE ONE (06:52)
[2022-12-31 07:57] VITALS: TEMP 97.8
[2022-12-31] MEDS: REMEDY ESSENTIAL ZINC PASTE 113 GM TP SCH ×2 (08:32→20:54)
[2022-12-31] MEDS: DULOXETINE 20 MG CAPSULE.DR GT SCH (08:32)
[2022-12-31] MEDS: ASCORBIC ACID 500 MG TABLET GT SCH (08:32)
[2022-12-31] MEDS: VITAMINS A AND D OINT 42 GM TUBE TP SCH (08:32)
[2022-12-31] MEDS: FINASTERIDE 5 MG TABLET GT SCH (08:32)
[2022-12-31] MEDS: HYDROGEN PEROXIDE 3% 118 ML BOTTLE TP SCH ×2 (09:00→21:00)
[2022-12-31] MEDS: MAGNESIUM HYDROXIDE 30 ML LIQUID UDC GT PRN (09:11)
[2022-12-31] MEDS: JEVITY 1.2 1000 ML LIQUID GT PRN (17:44)
[2022-12-31 20:37] VITALS: TEMP 97.9
[2022-12-31] MEDS: PROTEIN SUPPLEMENT (PROSTAT) 30 ML LIQUID GT SCH (20:53)
[2022-12-31] MEDS: MULTIVIT, IRON, MIN NO. 8, FA TABLET GT SCH (20:53)
[2023-01-01] MEDS: ACIDOPHILUS/BULGARICUS CHEW TAB GT SCH ×2 (06:18→17:20)
[2023-01-01] MEDS: BACLOFEN 10 MG TABLET GT SCH ×3 (06:18→22:09)
[2023-01-01] MEDS: NUTRISOURCE FIBER 4 GM PACKET GT SCH ×2 (06:18→17:20)
[2023-01-01] MEDS: SIMETHICONE 80 MG TAB.CHEW GT SCH ×3 (06:18→17:20)
[2023-01-01] MEDS: OMEPRAZOLE 20 MG CAPSULE.DR GT SCH (06:18)
[2023-01-01 07:21] VITALS: TEMP 98.7
[2023-01-01] MEDS: ASCORBIC ACID 500 MG TABLET GT SCH (08:43)
[2023-01-01] MEDS: DULOXETINE 20 MG CAPSULE.DR GT SCH (08:43)
[2023-01-01] MEDS: FINASTERIDE 5 MG TABLET GT SCH (08:43)
[2023-01-01] MEDS: REMEDY ESSENTIAL ZINC PASTE 113 GM TP SCH ×2 (09:00→20:51)
[2023-01-01] MEDS: VITAMINS A AND D OINT 42 GM TUBE TP SCH (09:00)
[2023-01-01] MEDS: HYDROGEN PEROXIDE 3% 118 ML BOTTLE TP SCH ×2 (09:28→21:38)
[2023-01-01 20:00] VITALS: TEMP 98.1
[2023-01-01] MEDS: PROTEIN SUPPLEMENT (PROSTAT) 30 ML LIQUID GT SCH (20:51)
[2023-01-01] MEDS: MULTIVIT, IRON, MIN NO. 8, FA TABLET GT SCH (20:51)
[2023-01-02] MEDS: SIMETHICONE 80 MG TAB.CHEW GT SCH ×4 (00:38→17:15)
[2023-01-02] MEDS: BACLOFEN 10 MG TABLET GT SCH ×3 (05:59→22:02)
[2023-01-02] MEDS: ACIDOPHILUS/BULGARICUS CHEW TAB GT SCH ×2 (05:59→17:15)
[2023-01-02] MEDS: OMEPRAZOLE 20 MG CAPSULE.DR GT SCH (05:59)
[2023-01-02] MEDS: NUTRISOURCE FIBER 4 GM PACKET GT SCH ×2 (05:59→17:15)
[2023-01-02] MEDS: JEVITY 1.2 1000 ML LIQUID GT PRN ×2 (05:59→14:12)
[2023-01-02 07:20] VITALS: TEMP 98.7
[2023-01-02] MEDS: FINASTERIDE 5 MG TABLET GT SCH (08:22)
[2023-01-02] MEDS: DULOXETINE 20 MG CAPSULE.DR GT SCH (08:22)
[2023-01-02] MEDS: ASCORBIC ACID 500 MG TABLET GT SCH (08:23)
[2023-01-02] MEDS: VITAMINS A AND D OINT 42 GM TUBE TP SCH (08:26)
[2023-01-02] MEDS: REMEDY ESSENTIAL ZINC PASTE 113 GM TP SCH ×2 (08:26→20:39)
[2023-01-02] MEDS: HYDROGEN PEROXIDE 3% 118 ML BOTTLE TP SCH ×2 (09:19→21:24)
[2023-01-02] MEDS: PROTEIN SUPPLEMENT (PROSTAT) 30 ML LIQUID GT SCH (20:37)
[2023-01-02] MEDS: MULTIVIT, IRON, MIN NO. 8, FA TABLET GT SCH (20:39)
[2023-01-02 21:13] VITALS: TEMP 98.9
[2023-01-03] MEDS: SIMETHICONE 80 MG TAB.CHEW GT SCH ×4 (00:54→17:27)
[2023-01-03] MEDS: JEVITY 1.2 1000 ML LIQUID GT PRN (06:44)
[2023-01-03] MEDS: NUTRISOURCE FIBER 4 GM PACKET GT SCH ×2 (06:44→17:27)
[2023-01-03] MEDS: OMEPRAZOLE 20 MG CAPSULE.DR GT SCH (06:44)
[2023-01-03] MEDS: BACLOFEN 10 MG TABLET GT SCH ×3 (06:44→21:31)
[2023-01-03] MEDS: ACIDOPHILUS/BULGARICUS CHEW TAB GT SCH ×2 (06:44→17:27)
[2023-01-03 08:00] VITALS: TEMP 98.2
[2023-01-03] MEDS: ASCORBIC ACID 500 MG TABLET GT SCH (08:38)
[2023-01-03] MEDS: REMEDY ESSENTIAL ZINC PASTE 113 GM TP SCH ×2 (08:38→21:31)
[2023-01-03] MEDS: VITAMINS A AND D OINT 42 GM TUBE TP SCH (08:38)
[2023-01-03] MEDS: FINASTERIDE 5 MG TABLET GT SCH (08:38)
[2023-01-03] MEDS: DULOXETINE 20 MG CAPSULE.DR GT SCH (08:38)
[2023-01-03] MEDS: HYDROGEN PEROXIDE 3% 118 ML BOTTLE TP SCH ×2 (09:16→19:13)
[2023-01-03 20:17] VITALS: TEMP 98
[2023-01-03] MEDS: PROTEIN SUPPLEMENT (PROSTAT) 30 ML LIQUID GT SCH (21:00)
[2023-01-03] MEDS: MULTIVIT, IRON, MIN NO. 8, FA TABLET GT SCH (21:31)
[2023-01-04] MEDS: SIMETHICONE 80 MG TAB.CHEW GT SCH ×4 (00:31→17:02)
[2023-01-04] MEDS: BACLOFEN 10 MG TABLET GT SCH ×3 (05:15→21:06)
[2023-01-04] MEDS: ACIDOPHILUS/BULGARICUS CHEW TAB GT SCH ×2 (05:15→17:02)
[2023-01-04] MEDS: NUTRISOURCE FIBER 4 GM PACKET GT SCH ×2 (05:15→17:02)
[2023-01-04] MEDS: OMEPRAZOLE 20 MG CAPSULE.DR GT SCH (05:15)
[2023-01-04 06:58] LABS: BASOPHILS % (AUTO) 0.4 % (0.0-2.0); EOSINOPHILS # (AUTO) 0.1 K/uL (0.0-0.7); EOSINOPHILS % (AUTO) 1.6 % (0.0-7.0); HEMATOCRIT 43.2 % (36.7-47.1); HEMOGLOBIN 14.2 g/dL (12.5-16.3); LYMPHOCYTES # (AUTO) 1.5 K/uL (0.8-4.8); LYMPHOCYTES % (AUTO) 16.9 % (20.5-51.5); MEAN CORPUSCULAR HEMOGLOBIN 28.3 uug (23.8-33.4); MEAN CORPUSCULAR HGB CONC 33 g/dL (32.5-36.3); MEAN CORPUSCULAR VOLUME 86.1 fL (73.0-96.2); MONOCYTES # (AUTO) 0.5 K/uL (0.1-1.30); MONOCYTES % (AUTO) 5.6 % (0.0-11.0); NEUTROPHILS # (AUTO) 6.7 K/uL (1.8-8.9); NEUTROPHILS % (AUTO) 75.5 % (38.5-71.5); PLATELET COUNT (AUTO) 83 K/uL (152-348); RED BLOOD CELL COUNT(AUTO) 5.01 MIL/uL (4.06-5.63); RED CELL DISTRIBUTION WIDTH 14.5 % (12.1-16.2); WHITE BLOOD COUNT (AUTO) 8.9 K/uL (3.6-10.2)
[2023-01-04 07:19] LABS: CALCIUM 9.1 mg/dL (8.5-10.1); CARBON DIOXIDE 25 mmol/L (21-32); CHLORIDE 101 mmol/L (98-107); CREATININE 0.6 mg/dL (0.6-1.3); GLUCOSE 102 mg/dL (74-106); MAGNESIUM 1.9 mg/dL (1.8-2.4); PHOSPHOROUS 3.2 mg/dL (2.5-4.9); POTASSIUM 4.1 mmol/L (3.5-5.1); SODIUM SERUM 135 mmol/L (136-145); UREA NITROGEN, BLOOD 21 mg/dL (7-18)
[2023-01-04 07:58] LABS: DIFFERENTIAL COMMENT 1
[2023-01-04 08:00] VITALS: TEMP 98.6
[2023-01-04] MEDS: HYDROGEN PEROXIDE 3% 118 ML BOTTLE TP SCH ×2 (08:57→19:14)
[2023-01-04] MEDS: ASCORBIC ACID 500 MG TABLET GT SCH (09:16)
[2023-01-04] MEDS: FINASTERIDE 5 MG TABLET GT SCH (09:16)
[2023-01-04] MEDS: DULOXETINE 20 MG CAPSULE.DR GT SCH (09:16)
[2023-01-04] MEDS: VITAMINS A AND D OINT 42 GM TUBE TP SCH (09:17)
[2023-01-04] MEDS: REMEDY ESSENTIAL ZINC PASTE 113 GM TP SCH ×2 (09:17→21:05)
[2023-01-04] MEDS: JEVITY 1.2 1000 ML LIQUID GT PRN (09:25)
[2023-01-04 20:00] VITALS: TEMP 98.1
[2023-01-04] MEDS: PROTEIN SUPPLEMENT (PROSTAT) 30 ML LIQUID GT SCH (21:05)
[2023-01-04] MEDS: MULTIVIT, IRON, MIN NO. 8, FA TABLET GT SCH (21:05)
[2023-01-05] MEDS: SIMETHICONE 80 MG TAB.CHEW GT SCH ×4 (00:08→17:37)
[2023-01-05] MEDS: JEVITY 1.2 1000 ML LIQUID GT PRN (03:45)
[2023-01-05] MEDS: BACLOFEN 10 MG TABLET GT SCH ×3 (05:50→22:05)
[2023-01-05] MEDS: OMEPRAZOLE 20 MG CAPSULE.DR GT SCH (05:50)
[2023-01-05] MEDS: ACIDOPHILUS/BULGARICUS CHEW TAB GT SCH ×2 (05:50→17:37)
[2023-01-05] MEDS: NUTRISOURCE FIBER 4 GM PACKET GT SCH ×2 (05:50→17:37)
[2023-01-05] MEDS: HYDROGEN PEROXIDE 3% 118 ML BOTTLE TP SCH ×2 (07:20→21:17)
[2023-01-05 07:43] VITALS: TEMP 97.9
[2023-01-05] MEDS: ASCORBIC ACID 500 MG TABLET GT SCH (08:57)
[2023-01-05] MEDS: VITAMINS A AND D OINT 42 GM TUBE TP SCH (08:57)
[2023-01-05] MEDS: REMEDY ESSENTIAL ZINC PASTE 113 GM TP SCH ×2 (08:57→20:42)
[2023-01-05] MEDS: FINASTERIDE 5 MG TABLET GT SCH (08:57)
[2023-01-05] MEDS: DULOXETINE 20 MG CAPSULE.DR GT SCH (08:57)
[2023-01-05 20:00] VITALS: TEMP 98.1
[2023-01-05] MEDS: PROTEIN SUPPLEMENT (PROSTAT) 30 ML LIQUID GT SCH (20:42)
[2023-01-05] MEDS: MULTIVIT, IRON, MIN NO. 8, FA TABLET GT SCH (20:42)
[2023-01-06] MEDS: JEVITY 1.2 1000 ML LIQUID GT PRN (00:41)
[2023-01-06] MEDS: SIMETHICONE 80 MG TAB.CHEW GT SCH ×5 (00:41→23:59)
[2023-01-06] MEDS: ACIDOPHILUS/BULGARICUS CHEW TAB GT SCH ×2 (05:13→17:32)
[2023-01-06] MEDS: OMEPRAZOLE 20 MG CAPSULE.DR GT SCH (05:15)
[2023-01-06] MEDS: BACLOFEN 10 MG TABLET GT SCH ×3 (05:15→21:40)
[2023-01-06] MEDS: NUTRISOURCE FIBER 4 GM PACKET GT SCH ×2 (05:15→17:32)
[2023-01-06 07:49] VITALS: TEMP 97.5
[2023-01-06] MEDS: HYDROGEN PEROXIDE 3% 118 ML BOTTLE TP SCH ×2 (08:55→21:18)
[2023-01-06] MEDS: DULOXETINE 20 MG CAPSULE.DR GT SCH (09:12)
[2023-01-06] MEDS: REMEDY ESSENTIAL ZINC PASTE 113 GM TP SCH ×2 (09:13→20:30)
[2023-01-06] MEDS: ASCORBIC ACID 500 MG TABLET GT SCH (09:13)
[2023-01-06] MEDS: FINASTERIDE 5 MG TABLET GT SCH (09:13)
[2023-01-06] MEDS: VITAMINS A AND D OINT 42 GM TUBE TP SCH (09:13)
[2023-01-06 20:00] VITALS: TEMP 97.6
[2023-01-06] MEDS: PROTEIN SUPPLEMENT (PROSTAT) 30 ML LIQUID GT SCH (20:30)
[2023-01-06] MEDS: MULTIVIT, IRON, MIN NO. 8, FA TABLET GT SCH (20:30)
[2023-01-06] MEDS: HARRIS FLUSH ENEMA PR PRN (22:20)
[2023-01-07] MEDS: NUTRISOURCE FIBER 4 GM PACKET GT SCH ×2 (05:35→18:05)
[2023-01-07] MEDS: OMEPRAZOLE 20 MG CAPSULE.DR GT SCH (05:35)
[2023-01-07] MEDS: BACLOFEN 10 MG TABLET GT SCH ×3 (05:35→21:53)
[2023-01-07] MEDS: SIMETHICONE 80 MG TAB.CHEW GT SCH ×3 (05:35→18:05)
[2023-01-07] MEDS: ACIDOPHILUS/BULGARICUS CHEW TAB GT SCH ×2 (05:35→18:05)
[2023-01-07 07:37] VITALS: TEMP 98.7
[2023-01-07] MEDS: HYDROGEN PEROXIDE 3% 118 ML BOTTLE TP SCH ×2 (09:24→19:23)
[2023-01-07] MEDS: ASCORBIC ACID 500 MG TABLET GT SCH (09:38)
[2023-01-07] MEDS: FINASTERIDE 5 MG TABLET GT SCH (09:38)
[2023-01-07] MEDS: DULOXETINE 20 MG CAPSULE.DR GT SCH (09:38)
[2023-01-07] MEDS: REMEDY ESSENTIAL ZINC PASTE 113 GM TP SCH ×2 (09:39→20:45)
[2023-01-07] MEDS: VITAMINS A AND D OINT 42 GM TUBE TP SCH (09:39)
[2023-01-07 20:05] VITALS: TEMP 98.5
[2023-01-07] MEDS: MULTIVIT, IRON, MIN NO. 8, FA TABLET GT SCH (20:45)
[2023-01-07] MEDS: PROTEIN SUPPLEMENT (PROSTAT) 30 ML LIQUID GT SCH (20:45)
[2023-01-08] MEDS: SIMETHICONE 80 MG TAB.CHEW GT SCH ×4 (00:06→17:19)
[2023-01-08] MEDS: JEVITY 1.2 1000 ML LIQUID GT PRN (01:24)
[2023-01-08] MEDS: ACIDOPHILUS/BULGARICUS CHEW TAB GT SCH ×2 (05:28→17:19)
[2023-01-08] MEDS: NUTRISOURCE FIBER 4 GM PACKET GT SCH ×2 (05:28→17:19)
[2023-01-08] MEDS: OMEPRAZOLE 20 MG CAPSULE.DR GT SCH (05:28)
[2023-01-08] MEDS: BACLOFEN 10 MG TABLET GT SCH ×3 (05:28→21:06)
[2023-01-08 07:50] VITALS: TEMP 98.2
[2023-01-08] MEDS: HYDROGEN PEROXIDE 3% 118 ML BOTTLE TP SCH ×2 (08:55→21:27)
[2023-01-08] MEDS: FINASTERIDE 5 MG TABLET GT SCH (09:06)
[2023-01-08] MEDS: DULOXETINE 20 MG CAPSULE.DR GT SCH (09:06)
[2023-01-08] MEDS: REMEDY ESSENTIAL ZINC PASTE 113 GM TP SCH ×2 (09:07→20:50)
[2023-01-08] MEDS: VITAMINS A AND D OINT 42 GM TUBE TP SCH (09:07)
[2023-01-08] MEDS: ASCORBIC ACID 500 MG TABLET GT SCH (09:07)
[2023-01-08 20:27] VITALS: TEMP 98.4
[2023-01-08] MEDS: MULTIVIT, IRON, MIN NO. 8, FA TABLET GT SCH (20:50)
[2023-01-08] MEDS: PROTEIN SUPPLEMENT (PROSTAT) 30 ML LIQUID GT SCH (20:50)
[2023-01-09] MEDS: SIMETHICONE 80 MG TAB.CHEW GT SCH ×4 (00:55→18:06)
[2023-01-09] MEDS: JEVITY 1.2 1000 ML LIQUID GT PRN (04:46)
[2023-01-09] MEDS: NUTRISOURCE FIBER 4 GM PACKET GT SCH ×2 (05:32→18:06)
[2023-01-09] MEDS: ACIDOPHILUS/BULGARICUS CHEW TAB GT SCH ×2 (05:32→18:06)
[2023-01-09] MEDS: OMEPRAZOLE 20 MG CAPSULE.DR GT SCH (05:32)
[2023-01-09] MEDS: BACLOFEN 10 MG TABLET GT SCH ×3 (05:32→21:56)
[2023-01-09 08:00] VITALS: TEMP 98
[2023-01-09] MEDS: ASCORBIC ACID 500 MG TABLET GT SCH (08:55)
[2023-01-09] MEDS: DULOXETINE 20 MG CAPSULE.DR GT SCH (08:55)
[2023-01-09] MEDS: FINASTERIDE 5 MG TABLET GT SCH (08:55)
[2023-01-09] MEDS: VITAMINS A AND D OINT 42 GM TUBE TP SCH (08:56)
[2023-01-09] MEDS: REMEDY ESSENTIAL ZINC PASTE 113 GM TP SCH ×2 (08:56→20:21)
[2023-01-09] MEDS: HYDROGEN PEROXIDE 3% 118 ML BOTTLE TP SCH ×2 (09:38→21:31)
[2023-01-09 20:01] VITALS: TEMP 98.5
[2023-01-09] MEDS: PROTEIN SUPPLEMENT (PROSTAT) 30 ML LIQUID GT SCH (20:19)
[2023-01-09] MEDS: MULTIVIT, IRON, MIN NO. 8, FA TABLET GT SCH (20:19)
[2023-01-10] MEDS: HARRIS FLUSH ENEMA PR PRN (02:00)
[2023-01-10] MEDS: BACLOFEN 10 MG TABLET GT SCH ×3 (05:27→21:57)
[2023-01-10] MEDS: NUTRISOURCE FIBER 4 GM PACKET GT SCH ×2 (05:27→17:19)
[2023-01-10] MEDS: OMEPRAZOLE 20 MG CAPSULE.DR GT SCH (05:27)
[2023-01-10] MEDS: ACIDOPHILUS/BULGARICUS CHEW TAB GT SCH ×2 (05:27→17:19)
[2023-01-10] MEDS: SIMETHICONE 80 MG TAB.CHEW GT SCH ×4 (05:27→17:19)
[2023-01-10 08:00] VITALS: TEMP 97.2
[2023-01-10] MEDS: DULOXETINE 20 MG CAPSULE.DR GT SCH (08:28)
[2023-01-10] MEDS: FINASTERIDE 5 MG TABLET GT SCH (08:28)
[2023-01-10] MEDS: ASCORBIC ACID 500 MG TABLET GT SCH (08:28)
[2023-01-10] MEDS: REMEDY ESSENTIAL ZINC PASTE 113 GM TP SCH ×2 (09:23→20:15)
[2023-01-10] MEDS: VITAMINS A AND D OINT 42 GM TUBE TP SCH (09:23)
[2023-01-10] MEDS: HYDROGEN PEROXIDE 3% 118 ML BOTTLE TP SCH ×2 (09:32→19:18)
[2023-01-10] MEDS: JEVITY 1.2 1000 ML LIQUID GT PRN (10:51)
[2023-01-10 20:00] VITALS: TEMP 99.1
[2023-01-10] MEDS: PROTEIN SUPPLEMENT (PROSTAT) 30 ML LIQUID GT SCH (20:14)
[2023-01-10] MEDS: MULTIVIT, IRON, MIN NO. 8, FA TABLET GT SCH (20:15)
[2023-01-11] MEDS: JEVITY 1.2 1000 ML LIQUID GT PRN (05:00)
[2023-01-11] MEDS: BACLOFEN 10 MG TABLET GT SCH ×3 (06:28→22:12)
[2023-01-11] MEDS: OMEPRAZOLE 20 MG CAPSULE.DR GT SCH (06:28)
[2023-01-11] MEDS: SIMETHICONE 80 MG TAB.CHEW GT SCH ×4 (06:28→17:41)
[2023-01-11] MEDS: ACIDOPHILUS/BULGARICUS CHEW TAB GT SCH ×2 (06:28→17:41)
[2023-01-11] MEDS: NUTRISOURCE FIBER 4 GM PACKET GT SCH ×2 (06:28→17:41)
[2023-01-11 08:00] VITALS: TEMP 98.2
[2023-01-11] MEDS: DULOXETINE 20 MG CAPSULE.DR GT SCH (08:56)
[2023-01-11] MEDS: FINASTERIDE 5 MG TABLET GT SCH (08:56)
[2023-01-11] MEDS: ASCORBIC ACID 500 MG TABLET GT SCH (08:56)
[2023-01-11] MEDS: REMEDY ESSENTIAL ZINC PASTE 113 GM TP SCH ×2 (09:00→20:18)
[2023-01-11] MEDS: HYDROGEN PEROXIDE 3% 118 ML BOTTLE TP SCH ×2 (09:00→19:07)
[2023-01-11] MEDS: VITAMINS A AND D OINT 42 GM TUBE TP SCH (09:00)
[2023-01-11 20:00] VITALS: TEMP 98.1
[2023-01-11] MEDS: MULTIVIT, IRON, MIN NO. 8, FA TABLET GT SCH (20:17)
[2023-01-11] MEDS: PROTEIN SUPPLEMENT (PROSTAT) 30 ML LIQUID GT SCH (20:17)
[2023-01-12] MEDS: ACIDOPHILUS/BULGARICUS CHEW TAB GT SCH ×2 (05:17→17:23)
[2023-01-12] MEDS: NUTRISOURCE FIBER 4 GM PACKET GT SCH ×2 (05:18→17:23)
[2023-01-12] MEDS: BACLOFEN 10 MG TABLET GT SCH ×3 (05:18→21:47)
[2023-01-12] MEDS: OMEPRAZOLE 20 MG CAPSULE.DR GT SCH (05:18)
[2023-01-12] MEDS: SIMETHICONE 80 MG TAB.CHEW GT SCH ×5 (05:18→23:50)
[2023-01-12] MEDS: HYDROGEN PEROXIDE 3% 118 ML BOTTLE TP SCH ×2 (07:26→21:23)
[2023-01-12 07:48] VITALS: TEMP 98.7
[2023-01-12] MEDS: DULOXETINE 20 MG CAPSULE.DR GT SCH (09:24)
[2023-01-12] MEDS: FINASTERIDE 5 MG TABLET GT SCH (09:24)
[2023-01-12] MEDS: ASCORBIC ACID 500 MG TABLET GT SCH (09:25)
[2023-01-12] MEDS: REMEDY ESSENTIAL ZINC PASTE 113 GM TP SCH ×2 (09:25→20:03)
[2023-01-12] MEDS: VITAMINS A AND D OINT 42 GM TUBE TP SCH (09:26)
[2023-01-12] MEDS: JEVITY 1.2 1000 ML LIQUID GT PRN (13:21)
[2023-01-12 16:31] VITALS: O2SAT 99
[2023-01-12 20:00] VITALS: TEMP 98
[2023-01-12] MEDS: PROTEIN SUPPLEMENT (PROSTAT) 30 ML LIQUID GT SCH (20:03)
[2023-01-12] MEDS: MULTIVIT, IRON, MIN NO. 8, FA TABLET GT SCH (20:03)
[2023-01-13] MEDS: ACIDOPHILUS/BULGARICUS CHEW TAB GT SCH ×2 (05:25→17:31)
[2023-01-13] MEDS: BACLOFEN 10 MG TABLET GT SCH ×3 (05:25→21:10)
[2023-01-13] MEDS: OMEPRAZOLE 20 MG CAPSULE.DR GT SCH (05:25)
[2023-01-13] MEDS: SIMETHICONE 80 MG TAB.CHEW GT SCH ×3 (05:25→17:31)
[2023-01-13] MEDS: NUTRISOURCE FIBER 4 GM PACKET GT SCH ×2 (05:25→17:31)
[2023-01-13] MEDS: HYDROGEN PEROXIDE 3% 118 ML BOTTLE TP SCH ×2 (07:20→20:52)
[2023-01-13 07:37] VITALS: TEMP 98
[2023-01-13] MEDS: ASCORBIC ACID 500 MG TABLET GT SCH (09:32)
[2023-01-13] MEDS: DULOXETINE 20 MG CAPSULE.DR GT SCH (09:32)
[2023-01-13] MEDS: FINASTERIDE 5 MG TABLET GT SCH (09:32)
[2023-01-13] MEDS: REMEDY ESSENTIAL ZINC PASTE 113 GM TP SCH ×2 (09:33→21:10)
[2023-01-13] MEDS: VITAMINS A AND D OINT 42 GM TUBE TP SCH (09:33)
[2023-01-13 20:00] VITALS: TEMP 97.7
[2023-01-13] MEDS: MULTIVIT, IRON, MIN NO. 8, FA TABLET GT SCH (21:10)
[2023-01-13] MEDS: PROTEIN SUPPLEMENT (PROSTAT) 30 ML LIQUID GT SCH (21:10)
[2023-01-14] MEDS: SIMETHICONE 80 MG TAB.CHEW GT SCH ×4 (00:51→17:40)
[2023-01-14] MEDS: BACLOFEN 10 MG TABLET GT SCH ×3 (05:30→21:27)
[2023-01-14] MEDS: ACIDOPHILUS/BULGARICUS CHEW TAB GT SCH ×2 (05:30→17:39)
[2023-01-14] MEDS: OMEPRAZOLE 20 MG CAPSULE.DR GT SCH (05:30)
[2023-01-14] MEDS: NUTRISOURCE FIBER 4 GM PACKET GT SCH ×2 (05:30→17:40)
[2023-01-14 07:44] VITALS: TEMP 98.9
[2023-01-14] MEDS: DULOXETINE 20 MG CAPSULE.DR GT SCH (08:20)
[2023-01-14] MEDS: VITAMINS A AND D OINT 42 GM TUBE TP SCH (08:21)
[2023-01-14] MEDS: REMEDY ESSENTIAL ZINC PASTE 113 GM TP SCH ×2 (08:21→21:26)
[2023-01-14] MEDS: ASCORBIC ACID 500 MG TABLET GT SCH (08:21)
[2023-01-14] MEDS: FINASTERIDE 5 MG TABLET GT SCH (08:21)
[2023-01-14] MEDS: HYDROGEN PEROXIDE 3% 118 ML BOTTLE TP SCH ×2 (09:00→21:05)
[2023-01-14] MEDS: JEVITY 1.2 1000 ML LIQUID GT PRN (11:13)
[2023-01-14] MEDS: MAGNESIUM HYDROXIDE 30 ML LIQUID UDC GT PRN (12:19)
[2023-01-14] MEDS: HARRIS FLUSH ENEMA PR PRN (14:06)
[2023-01-14 20:25] VITALS: TEMP 99.1
[2023-01-14] MEDS: MULTIVIT, IRON, MIN NO. 8, FA TABLET GT SCH (21:26)
[2023-01-14] MEDS: PROTEIN SUPPLEMENT (PROSTAT) 30 ML LIQUID GT SCH (21:26)
[2023-01-15] MEDS: BACLOFEN 10 MG TABLET GT SCH ×3 (05:44→22:12)
[2023-01-15] MEDS: OMEPRAZOLE 20 MG CAPSULE.DR GT SCH (05:44)
[2023-01-15] MEDS: NUTRISOURCE FIBER 4 GM PACKET GT SCH ×2 (05:44→17:27)
[2023-01-15] MEDS: SIMETHICONE 80 MG TAB.CHEW GT SCH ×4 (05:44→17:27)
[2023-01-15] MEDS: ACIDOPHILUS/BULGARICUS CHEW TAB GT SCH ×2 (05:44→17:27)
[2023-01-15 08:00] VITALS: TEMP 98.1
[2023-01-15] MEDS: VITAMINS A AND D OINT 42 GM TUBE TP SCH (09:13)
[2023-01-15] MEDS: REMEDY ESSENTIAL ZINC PASTE 113 GM TP SCH ×2 (09:13→20:27)
[2023-01-15] MEDS: FINASTERIDE 5 MG TABLET GT SCH (09:13)
[2023-01-15] MEDS: ASCORBIC ACID 500 MG TABLET GT SCH (09:13)
[2023-01-15] MEDS: DULOXETINE 20 MG CAPSULE.DR GT SCH (09:13)
[2023-01-15] MEDS: HYDROGEN PEROXIDE 3% 118 ML BOTTLE TP SCH ×2 (09:49→21:09)
[2023-01-15] MEDS: JEVITY 1.2 1000 ML LIQUID GT PRN (17:27)
[2023-01-15] MEDS: MULTIVIT, IRON, MIN NO. 8, FA TABLET GT SCH (20:27)
[2023-01-15] MEDS: PROTEIN SUPPLEMENT (PROSTAT) 30 ML LIQUID GT SCH (20:27)
[2023-01-15 21:06] VITALS: TEMP 98.7
[2023-01-16] MEDS: SIMETHICONE 80 MG TAB.CHEW GT SCH ×5 (00:47→23:28)
[2023-01-16] MEDS: OMEPRAZOLE 20 MG CAPSULE.DR GT SCH (05:17)
[2023-01-16] MEDS: BACLOFEN 10 MG TABLET GT SCH ×3 (05:17→22:51)
[2023-01-16] MEDS: ACIDOPHILUS/BULGARICUS CHEW TAB GT SCH ×2 (05:17→17:05)
[2023-01-16] MEDS: NUTRISOURCE FIBER 4 GM PACKET GT SCH ×2 (05:17→17:05)
[2023-01-16] MEDS: POLYVINYL ALCOHOL OPHT DROPS 15 ML BOTTLE EACHEYE PRN (05:18)
[2023-01-16] MEDS: HYDROGEN PEROXIDE 3% 118 ML BOTTLE TP SCH ×2 (07:20→21:53)
[2023-01-16 08:00] VITALS: TEMP 98.6
[2023-01-16] MEDS: FINASTERIDE 5 MG TABLET GT SCH (09:00)
[2023-01-16] MEDS: ASCORBIC ACID 500 MG TABLET GT SCH (09:00)
[2023-01-16] MEDS: VITAMINS A AND D OINT 42 GM TUBE TP SCH (09:00)
[2023-01-16] MEDS: REMEDY ESSENTIAL ZINC PASTE 113 GM TP SCH ×2 (09:00→20:35)
[2023-01-16] MEDS: DULOXETINE 20 MG CAPSULE.DR GT SCH (09:00)
[2023-01-16 19:59] VITALS: TEMP 98.6
[2023-01-16] MEDS: PROTEIN SUPPLEMENT (PROSTAT) 30 ML LIQUID GT SCH (20:34)
[2023-01-16] MEDS: MULTIVIT, IRON, MIN NO. 8, FA TABLET GT SCH (20:34)
[2023-01-16] MEDS: JEVITY 1.2 1000 ML LIQUID GT PRN (22:52)
[2023-01-17] MEDS: BACLOFEN 10 MG TABLET GT SCH ×3 (06:19→22:34)
[2023-01-17] MEDS: SIMETHICONE 80 MG TAB.CHEW GT SCH ×4 (06:19→23:30)
[2023-01-17] MEDS: NUTRISOURCE FIBER 4 GM PACKET GT SCH ×2 (06:19→17:16)
[2023-01-17] MEDS: ACIDOPHILUS/BULGARICUS CHEW TAB GT SCH ×2 (06:19→17:16)
[2023-01-17] MEDS: OMEPRAZOLE 20 MG CAPSULE.DR GT SCH (06:19)
[2023-01-17 08:00] VITALS: TEMP 98.1
[2023-01-17] MEDS: HYDROGEN PEROXIDE 3% 118 ML BOTTLE TP SCH ×2 (08:34→21:12)
[2023-01-17] MEDS: ASCORBIC ACID 500 MG TABLET GT SCH (09:35)
[2023-01-17] MEDS: FINASTERIDE 5 MG TABLET GT SCH (09:35)
[2023-01-17] MEDS: DULOXETINE 20 MG CAPSULE.DR GT SCH (09:35)
[2023-01-17] MEDS: VITAMINS A AND D OINT 42 GM TUBE TP SCH (09:36)
[2023-01-17] MEDS: REMEDY ESSENTIAL ZINC PASTE 113 GM TP SCH ×2 (09:36→20:36)
[2023-01-17] MEDS: MULTIVIT, IRON, MIN NO. 8, FA TABLET GT SCH (20:36)
[2023-01-17] MEDS: PROTEIN SUPPLEMENT (PROSTAT) 30 ML LIQUID GT SCH (20:36)
[2023-01-17 21:17] VITALS: TEMP 98.3
[2023-01-18] MEDS: JEVITY 1.2 1000 ML LIQUID GT PRN (01:34)
[2023-01-18] MEDS: SIMETHICONE 80 MG TAB.CHEW GT SCH ×4 (05:25→23:33)
[2023-01-18] MEDS: BACLOFEN 10 MG TABLET GT SCH ×3 (05:25→22:00)
[2023-01-18] MEDS: OMEPRAZOLE 20 MG CAPSULE.DR GT SCH (05:25)
[2023-01-18] MEDS: ACIDOPHILUS/BULGARICUS CHEW TAB GT SCH ×2 (05:25→17:18)
[2023-01-18] MEDS: NUTRISOURCE FIBER 4 GM PACKET GT SCH ×2 (05:25→17:18)
[2023-01-18 08:00] VITALS: TEMP 97.8
[2023-01-18] MEDS: ASCORBIC ACID 500 MG TABLET GT SCH (08:55)
[2023-01-18] MEDS: FINASTERIDE 5 MG TABLET GT SCH (08:55)
[2023-01-18] MEDS: DULOXETINE 20 MG CAPSULE.DR GT SCH (08:55)
[2023-01-18] MEDS: VITAMINS A AND D OINT 42 GM TUBE TP SCH (08:56)
[2023-01-18] MEDS: REMEDY ESSENTIAL ZINC PASTE 113 GM TP SCH ×2 (08:56→20:20)
[2023-01-18] MEDS: HYDROGEN PEROXIDE 3% 118 ML BOTTLE TP SCH ×2 (09:26→19:10)
[2023-01-18 19:54] VITALS: TEMP 98.6
[2023-01-18] MEDS: PROTEIN SUPPLEMENT (PROSTAT) 30 ML LIQUID GT SCH (20:20)
[2023-01-18] MEDS: MULTIVIT, IRON, MIN NO. 8, FA TABLET GT SCH (20:20)
[2023-01-19] MEDS: ACIDOPHILUS/BULGARICUS CHEW TAB GT SCH ×2 (06:19→18:14)
[2023-01-19] MEDS: SIMETHICONE 80 MG TAB.CHEW GT SCH ×4 (06:19→23:15)
[2023-01-19] MEDS: OMEPRAZOLE 20 MG CAPSULE.DR GT SCH (06:19)
[2023-01-19] MEDS: BACLOFEN 10 MG TABLET GT SCH ×3 (06:19→22:00)
[2023-01-19] MEDS: NUTRISOURCE FIBER 4 GM PACKET GT SCH ×2 (06:19→18:14)
[2023-01-19] MEDS: HYDROGEN PEROXIDE 3% 118 ML BOTTLE TP SCH ×2 (07:20→19:15)
[2023-01-19 07:30] VITALS: TEMP 99.1
[2023-01-19] MEDS: DULOXETINE 20 MG CAPSULE.DR GT SCH (08:48)
[2023-01-19] MEDS: FINASTERIDE 5 MG TABLET GT SCH (08:48)
[2023-01-19] MEDS: REMEDY ESSENTIAL ZINC PASTE 113 GM TP SCH ×2 (08:49→21:00)
[2023-01-19] MEDS: ASCORBIC ACID 500 MG TABLET GT SCH (08:49)
[2023-01-19] MEDS: VITAMINS A AND D OINT 42 GM TUBE TP SCH (08:49)
[2023-01-19] MEDS: JEVITY 1.2 1000 ML LIQUID GT PRN (12:34)
[2023-01-19 20:00] VITALS: TEMP 98.6
[2023-01-19] MEDS: MULTIVIT, IRON, MIN NO. 8, FA TABLET GT SCH (21:00)
[2023-01-19] MEDS: PROTEIN SUPPLEMENT (PROSTAT) 30 ML LIQUID GT SCH (21:00)
[2023-01-20] MEDS: SIMETHICONE 80 MG TAB.CHEW GT SCH ×4 (06:00→21:42)
[2023-01-20] MEDS: OMEPRAZOLE 20 MG CAPSULE.DR GT SCH (06:00)
[2023-01-20] MEDS: ACIDOPHILUS/BULGARICUS CHEW TAB GT SCH ×2 (06:00→17:17)
[2023-01-20] MEDS: NUTRISOURCE FIBER 4 GM PACKET GT SCH ×2 (06:00→17:17)
[2023-01-20] MEDS: BACLOFEN 10 MG TABLET GT SCH ×3 (06:00→21:41)
[2023-01-20 07:38] VITALS: TEMP 98.1
[2023-01-20] MEDS: FINASTERIDE 5 MG TABLET GT SCH (09:19)
[2023-01-20] MEDS: DULOXETINE 20 MG CAPSULE.DR GT SCH (09:19)
[2023-01-20] MEDS: VITAMINS A AND D OINT 42 GM TUBE TP SCH (09:20)
[2023-01-20] MEDS: REMEDY ESSENTIAL ZINC PASTE 113 GM TP SCH ×2 (09:20→21:40)
[2023-01-20] MEDS: ASCORBIC ACID 500 MG TABLET GT SCH (09:20)
[2023-01-20] MEDS: HYDROGEN PEROXIDE 3% 118 ML BOTTLE TP SCH ×2 (09:30→19:11)
[2023-01-20] MEDS: JEVITY 1.2 1000 ML LIQUID GT PRN (13:13)
[2023-01-20 20:00] VITALS: TEMP 98.4
[2023-01-20] MEDS: MULTIVIT, IRON, MIN NO. 8, FA TABLET GT SCH (21:40)
[2023-01-20] MEDS: PROTEIN SUPPLEMENT (PROSTAT) 30 ML LIQUID GT SCH (21:40)
[2023-01-21] MEDS: NUTRISOURCE FIBER 4 GM PACKET GT SCH ×2 (06:26→17:42)
[2023-01-21] MEDS: ACIDOPHILUS/BULGARICUS CHEW TAB GT SCH ×2 (06:26→17:41)
[2023-01-21] MEDS: BACLOFEN 10 MG TABLET GT SCH ×3 (06:27→21:18)
[2023-01-21] MEDS: SIMETHICONE 80 MG TAB.CHEW GT SCH ×4 (06:27→23:01)
[2023-01-21] MEDS: OMEPRAZOLE 20 MG CAPSULE.DR GT SCH (06:27)
[2023-01-21 07:43] VITALS: TEMP 97.4
[2023-01-21] MEDS: HYDROGEN PEROXIDE 3% 118 ML BOTTLE TP SCH ×2 (09:04→19:06)
[2023-01-21] MEDS: FINASTERIDE 5 MG TABLET GT SCH (09:30)
[2023-01-21] MEDS: REMEDY ESSENTIAL ZINC PASTE 113 GM TP SCH ×2 (09:30→20:12)
[2023-01-21] MEDS: VITAMINS A AND D OINT 42 GM TUBE TP SCH (09:30)
[2023-01-21] MEDS: ASCORBIC ACID 500 MG TABLET GT SCH (09:30)
[2023-01-21] MEDS: DULOXETINE 20 MG CAPSULE.DR GT SCH (09:30)
[2023-01-21 19:54] VITALS: TEMP 98.2
[2023-01-21] MEDS: PROTEIN SUPPLEMENT (PROSTAT) 30 ML LIQUID GT SCH (20:12)
[2023-01-21] MEDS: MULTIVIT, IRON, MIN NO. 8, FA TABLET GT SCH (20:12)
[2023-01-21] MEDS: JEVITY 1.2 1000 ML LIQUID GT PRN (22:45)
[2023-01-22] MEDS: BACLOFEN 10 MG TABLET GT SCH ×3 (05:33→22:27)
[2023-01-22] MEDS: OMEPRAZOLE 20 MG CAPSULE.DR GT SCH (05:33)
[2023-01-22] MEDS: NUTRISOURCE FIBER 4 GM PACKET GT SCH ×2 (05:33→17:56)
[2023-01-22] MEDS: ACIDOPHILUS/BULGARICUS CHEW TAB GT SCH ×2 (05:33→17:46)
[2023-01-22] MEDS: SIMETHICONE 80 MG TAB.CHEW GT SCH ×4 (05:33→23:06)
[2023-01-22 07:35] VITALS: TEMP 98.7
[2023-01-22] MEDS: FINASTERIDE 5 MG TABLET GT SCH (08:23)
[2023-01-22] MEDS: DULOXETINE 20 MG CAPSULE.DR GT SCH (08:23)
[2023-01-22] MEDS: VITAMINS A AND D OINT 42 GM TUBE TP SCH (08:24)
[2023-01-22] MEDS: REMEDY ESSENTIAL ZINC PASTE 113 GM TP SCH ×2 (08:24→20:29)
[2023-01-22] MEDS: ASCORBIC ACID 500 MG TABLET GT SCH (08:24)
[2023-01-22] MEDS: HYDROGEN PEROXIDE 3% 118 ML BOTTLE TP SCH ×2 (09:21→21:00)
[2023-01-22] MEDS: JEVITY 1.2 1000 ML LIQUID GT PRN (17:37)
[2023-01-22] MEDS: MULTIVIT, IRON, MIN NO. 8, FA TABLET GT SCH (20:29)
[2023-01-22 20:30] VITALS: TEMP 100.2
[2023-01-22] MEDS: ACETAMINOPHEN 650 MG/20 ML UDC- SA PATIENTS-PAIN ONLY GT PRN (20:30)
[2023-01-22] MEDS: PROTEIN SUPPLEMENT (PROSTAT) 30 ML LIQUID GT SCH (20:30)
[2023-01-22 22:00] VITALS: TEMP 98.5
[2023-01-22 22:30] VITALS: TEMP 98.5
[2023-01-23] MEDS: SIMETHICONE 80 MG TAB.CHEW GT SCH ×3 (05:11→17:20)
[2023-01-23] MEDS: BACLOFEN 10 MG TABLET GT SCH ×3 (05:11→22:21)
[2023-01-23] MEDS: ACIDOPHILUS/BULGARICUS CHEW TAB GT SCH ×2 (05:11→17:20)
[2023-01-23] MEDS: OMEPRAZOLE 20 MG CAPSULE.DR GT SCH (05:12)
[2023-01-23] MEDS: NUTRISOURCE FIBER 4 GM PACKET GT SCH ×2 (05:12→17:20)
[2023-01-23 06:00] VITALS: TEMP 98.2
[2023-01-23] MEDS: JEVITY 1.2 1000 ML LIQUID GT PRN (06:28)
[2023-01-23 07:26] VITALS: TEMP 99.2
[2023-01-23] MEDS: HYDROGEN PEROXIDE 3% 118 ML BOTTLE TP SCH ×2 (08:35→20:48)
[2023-01-23] MEDS: DULOXETINE 20 MG CAPSULE.DR GT SCH (08:37)
[2023-01-23] MEDS: VITAMINS A AND D OINT 42 GM TUBE TP SCH (08:38)
[2023-01-23] MEDS: FINASTERIDE 5 MG TABLET GT SCH (08:38)
[2023-01-23] MEDS: ASCORBIC ACID 500 MG TABLET GT SCH (08:38)
[2023-01-23] MEDS: REMEDY ESSENTIAL ZINC PASTE 113 GM TP SCH ×2 (08:38→21:00)
[2023-01-23] MEDS: MAGNESIUM HYDROXIDE 30 ML LIQUID UDC GT PRN (09:00)
[2023-01-23] MEDS: HARRIS FLUSH ENEMA PR PRN (11:30)
[2023-01-23] MEDS: BISACODYL 10 MG SUPP.RECT RC PRN (12:15)
[2023-01-23 20:00] VITALS: TEMP 97.9
[2023-01-23] MEDS: MULTIVIT, IRON, MIN NO. 8, FA TABLET GT SCH (21:00)
[2023-01-23] MEDS: PROTEIN SUPPLEMENT (PROSTAT) 30 ML LIQUID GT SCH (21:00)
[2023-01-24] MEDS: OMEPRAZOLE 20 MG CAPSULE.DR GT SCH (06:17)
[2023-01-24] MEDS: ACIDOPHILUS/BULGARICUS CHEW TAB GT SCH ×2 (06:17→17:37)
[2023-01-24] MEDS: BACLOFEN 10 MG TABLET GT SCH ×3 (06:17→21:04)
[2023-01-24] MEDS: SIMETHICONE 80 MG TAB.CHEW GT SCH ×4 (06:17→17:37)
[2023-01-24] MEDS: NUTRISOURCE FIBER 4 GM PACKET GT SCH ×2 (06:17→17:38)
[2023-01-24 07:33] VITALS: TEMP 98.1
[2023-01-24] MEDS: FINASTERIDE 5 MG TABLET GT SCH (08:23)
[2023-01-24] MEDS: ASCORBIC ACID 500 MG TABLET GT SCH (08:23)
[2023-01-24] MEDS: DULOXETINE 20 MG CAPSULE.DR GT SCH (08:23)
[2023-01-24] MEDS: VITAMINS A AND D OINT 42 GM TUBE TP SCH (08:24)
[2023-01-24] MEDS: REMEDY ESSENTIAL ZINC PASTE 113 GM TP SCH ×2 (08:24→20:39)
[2023-01-24] MEDS: HYDROGEN PEROXIDE 3% 118 ML BOTTLE TP SCH ×2 (09:29→21:28)
[2023-01-24 19:41] VITALS: TEMP 98.3
[2023-01-24] MEDS: PROTEIN SUPPLEMENT (PROSTAT) 30 ML LIQUID GT SCH (20:39)
[2023-01-24] MEDS: MULTIVIT, IRON, MIN NO. 8, FA TABLET GT SCH (20:39)
[2023-01-25] MEDS: BACLOFEN 10 MG TABLET GT SCH ×3 (06:17→21:56)
[2023-01-25] MEDS: ACIDOPHILUS/BULGARICUS CHEW TAB GT SCH ×2 (06:17→17:07)
[2023-01-25] MEDS: SIMETHICONE 80 MG TAB.CHEW GT SCH ×4 (06:17→17:12)
[2023-01-25] MEDS: NUTRISOURCE FIBER 4 GM PACKET GT SCH ×2 (06:17→17:09)
[2023-01-25] MEDS: OMEPRAZOLE 20 MG CAPSULE.DR GT SCH (06:17)
[2023-01-25 07:40] VITALS: TEMP 98.4
[2023-01-25] MEDS: FINASTERIDE 5 MG TABLET GT SCH (09:24)
[2023-01-25] MEDS: DULOXETINE 20 MG CAPSULE.DR GT SCH (09:24)
[2023-01-25] MEDS: REMEDY ESSENTIAL ZINC PASTE 113 GM TP SCH ×2 (09:24→20:24)
[2023-01-25] MEDS: ASCORBIC ACID 500 MG TABLET GT SCH (09:24)
[2023-01-25] MEDS: VITAMINS A AND D OINT 42 GM TUBE TP SCH (09:24)
[2023-01-25] MEDS: HYDROGEN PEROXIDE 3% 118 ML BOTTLE TP SCH ×2 (09:27→19:06)
[2023-01-25] MEDS: JEVITY 1.2 1000 ML LIQUID GT PRN (12:24)
[2023-01-25 20:00] VITALS: TEMP 98.5
[2023-01-25] MEDS: PROTEIN SUPPLEMENT (PROSTAT) 30 ML LIQUID GT SCH (20:24)
[2023-01-25] MEDS: MULTIVIT, IRON, MIN NO. 8, FA TABLET GT SCH (20:24)
[2023-01-26] MEDS: NUTRISOURCE FIBER 4 GM PACKET GT SCH ×2 (05:07→17:30)
[2023-01-26] MEDS: OMEPRAZOLE 20 MG CAPSULE.DR GT SCH (05:07)
[2023-01-26] MEDS: BACLOFEN 10 MG TABLET GT SCH ×3 (05:07→21:49)
[2023-01-26] MEDS: ACIDOPHILUS/BULGARICUS CHEW TAB GT SCH ×2 (05:07→17:30)
[2023-01-26] MEDS: SIMETHICONE 80 MG TAB.CHEW GT SCH ×5 (05:07→23:05)
[2023-01-26] MEDS: JEVITY 1.2 1000 ML LIQUID GT PRN ×2 (05:07→22:17)
[2023-01-26] MEDS: HYDROGEN PEROXIDE 3% 118 ML BOTTLE TP SCH ×2 (07:20→18:20)
[2023-01-26 07:39] VITALS: TEMP 98.5
[2023-01-26] MEDS: FINASTERIDE 5 MG TABLET GT SCH (08:58)
[2023-01-26] MEDS: REMEDY ESSENTIAL ZINC PASTE 113 GM TP SCH ×2 (08:58→21:49)
[2023-01-26] MEDS: ASCORBIC ACID 500 MG TABLET GT SCH (08:58)
[2023-01-26] MEDS: DULOXETINE 20 MG CAPSULE.DR GT SCH (08:58)
[2023-01-26] MEDS: VITAMINS A AND D OINT 42 GM TUBE TP SCH (08:58)
[2023-01-26 20:12] VITALS: TEMP 98.4
[2023-01-26] MEDS: PROTEIN SUPPLEMENT (PROSTAT) 30 ML LIQUID GT SCH (21:49)
[2023-01-26] MEDS: MULTIVIT, IRON, MIN NO. 8, FA TABLET GT SCH (21:49)
[2023-01-27] MEDS: BACLOFEN 10 MG TABLET GT SCH ×3 (05:30→21:55)
[2023-01-27] MEDS: OMEPRAZOLE 20 MG CAPSULE.DR GT SCH (05:30)
[2023-01-27] MEDS: NUTRISOURCE FIBER 4 GM PACKET GT SCH ×2 (05:30→18:02)
[2023-01-27] MEDS: SIMETHICONE 80 MG TAB.CHEW GT SCH ×4 (05:30→23:10)
[2023-01-27] MEDS: ACIDOPHILUS/BULGARICUS CHEW TAB GT SCH ×2 (05:30→18:01)
[2023-01-27 08:25] VITALS: TEMP 98.2
[2023-01-27] MEDS: ASCORBIC ACID 500 MG TABLET GT SCH (09:25)
[2023-01-27] MEDS: FINASTERIDE 5 MG TABLET GT SCH (09:25)
[2023-01-27] MEDS: DULOXETINE 20 MG CAPSULE.DR GT SCH (09:25)
[2023-01-27] MEDS: REMEDY ESSENTIAL ZINC PASTE 113 GM TP SCH ×2 (09:25→20:15)
[2023-01-27] MEDS: VITAMINS A AND D OINT 42 GM TUBE TP SCH (09:25)
[2023-01-27] MEDS: HYDROGEN PEROXIDE 3% 118 ML BOTTLE TP SCH ×2 (09:42→21:47)
[2023-01-27] MEDS: JEVITY 1.2 1000 ML LIQUID GT PRN (15:57)
[2023-01-27] MEDS: MULTIVIT, IRON, MIN NO. 8, FA TABLET GT SCH (20:15)
[2023-01-27] MEDS: PROTEIN SUPPLEMENT (PROSTAT) 30 ML LIQUID GT SCH (20:15)
[2023-01-27 20:23] VITALS: TEMP 97.8
[2023-01-28] MEDS: ACIDOPHILUS/BULGARICUS CHEW TAB GT SCH ×2 (05:43→17:27)
[2023-01-28] MEDS: SIMETHICONE 80 MG TAB.CHEW GT SCH ×3 (05:43→17:27)
[2023-01-28] MEDS: NUTRISOURCE FIBER 4 GM PACKET GT SCH ×2 (05:43→17:28)
[2023-01-28] MEDS: OMEPRAZOLE 20 MG CAPSULE.DR GT SCH (05:43)
[2023-01-28] MEDS: BACLOFEN 10 MG TABLET GT SCH ×3 (05:43→21:32)
[2023-01-28 07:30] VITALS: TEMP 99.4
[2023-01-28] MEDS: REMEDY ESSENTIAL ZINC PASTE 113 GM TP SCH ×2 (09:06→20:07)
[2023-01-28] MEDS: FINASTERIDE 5 MG TABLET GT SCH (09:06)
[2023-01-28] MEDS: DULOXETINE 20 MG CAPSULE.DR GT SCH (09:06)
[2023-01-28] MEDS: ASCORBIC ACID 500 MG TABLET GT SCH (09:06)
[2023-01-28] MEDS: VITAMINS A AND D OINT 42 GM TUBE TP SCH (09:07)
[2023-01-28] MEDS: HYDROGEN PEROXIDE 3% 118 ML BOTTLE TP SCH ×2 (09:20→22:54)
[2023-01-28] MEDS: JEVITY 1.2 1000 ML LIQUID GT PRN (11:40)
[2023-01-28 19:51] VITALS: TEMP 98.5
[2023-01-28] MEDS: MULTIVIT, IRON, MIN NO. 8, FA TABLET GT SCH (20:07)
[2023-01-28] MEDS: PROTEIN SUPPLEMENT (PROSTAT) 30 ML LIQUID GT SCH (20:07)
[2023-01-29] MEDS: SIMETHICONE 80 MG TAB.CHEW GT SCH ×4 (00:37→17:13)
[2023-01-29] MEDS: JEVITY 1.2 1000 ML LIQUID GT PRN ×2 (00:46→17:38)
[2023-01-29] MEDS: NUTRISOURCE FIBER 4 GM PACKET GT SCH ×2 (05:25→17:12)
[2023-01-29] MEDS: ACIDOPHILUS/BULGARICUS CHEW TAB GT SCH ×2 (05:25→17:12)
[2023-01-29] MEDS: BACLOFEN 10 MG TABLET GT SCH ×3 (05:25→22:41)
[2023-01-29] MEDS: OMEPRAZOLE 20 MG CAPSULE.DR GT SCH (05:25)
[2023-01-29 06:55] LABS: BASOPHILS % (AUTO) 0.6 % (0.0-2.0); EOSINOPHILS # (AUTO) 0.1 K/uL (0.0-0.7); EOSINOPHILS % (AUTO) 2.7 % (0.0-7.0); HEMOGLOBIN 12.1 g/dL (12.5-16.3); LYMPHOCYTES # (AUTO) 1.5 K/uL (0.8-4.8); LYMPHOCYTES % (AUTO) 29.6 % (20.5-51.5); MEAN CORPUSCULAR HEMOGLOBIN 28.3 uug (23.8-33.4); MEAN CORPUSCULAR HGB CONC 33 g/dL (32.5-36.3); MEAN CORPUSCULAR VOLUME 86.1 fL (73.0-96.2); MONOCYTES # (AUTO) 0.4 K/uL (0.1-1.30); MONOCYTES % (AUTO) 7.9 % (0.0-11.0); NEUTROPHILS # (AUTO) 3.1 K/uL (1.8-8.9); NEUTROPHILS % (AUTO) 59.2 % (38.5-71.5); PLATELET COUNT (AUTO) 211 K/uL (152-348); RED BLOOD CELL COUNT(AUTO) 4.29 MIL/uL (4.06-5.63); RED CELL DISTRIBUTION WIDTH 14.4 % (12.1-16.2); WHITE BLOOD COUNT (AUTO) 5.2 K/uL (3.6-10.2)
[2023-01-29 07:25] LABS: ALANINE AMINOTRANSFERASE 27 U/L (16-63); ALBUMIN 2.9 g/dL (3.4-5.0); ALKALINE PHOSPHATASE 111 U/L (50-136); ASPARTATE AMINOTRANSFERASE 18 U/L (15-37); BILIRUBIN,TOTAL 0.2 mg/dL (0.2-1.0); CALCIUM 9.1 mg/dL (8.5-10.1); CARBON DIOXIDE 27 mmol/L (21-32); CHLORIDE 103 mmol/L (98-107); CREATININE 0.6 mg/dL (0.6-1.3); GLUCOSE 130 mg/dL (74-106); MAGNESIUM 2.1 mg/dL (1.8-2.4); PHOSPHOROUS 3.8 mg/dL (2.5-4.9); POTASSIUM 4.3 mmol/L (3.5-5.1); SODIUM SERUM 138 mmol/L (136-145); TOTAL PROTEIN, SERUM 6.8 g/dL (6.4-8.2); UREA NITROGEN, BLOOD 32 mg/dL (7-18)
[2023-01-29 07:28] LABS: DIFFERENTIAL COMMENT 1
[2023-01-29 07:40] VITALS: TEMP 97.8
[2023-01-29] MEDS: VITAMINS A AND D OINT 42 GM TUBE TP SCH (09:00)
[2023-01-29] MEDS: ASCORBIC ACID 500 MG TABLET GT SCH (09:00)
[2023-01-29] MEDS: FINASTERIDE 5 MG TABLET GT SCH (09:00)
[2023-01-29] MEDS: DULOXETINE 20 MG CAPSULE.DR GT SCH (09:00)
[2023-01-29] MEDS: REMEDY ESSENTIAL ZINC PASTE 113 GM TP SCH ×2 (09:00→20:35)
[2023-01-29] MEDS: HYDROGEN PEROXIDE 3% 118 ML BOTTLE TP SCH ×2 (09:46→21:37)
[2023-01-29] MEDS: POLYVINYL ALCOHOL OPHT DROPS 15 ML BOTTLE EACHEYE PRN (17:14)
[2023-01-29 19:59] VITALS: TEMP 98.3
[2023-01-29] MEDS: MULTIVIT, IRON, MIN NO. 8, FA TABLET GT SCH (20:34)
[2023-01-29] MEDS: PROTEIN SUPPLEMENT (PROSTAT) 30 ML LIQUID GT SCH (20:34)
[2023-01-30] MEDS: OMEPRAZOLE 20 MG CAPSULE.DR GT SCH (06:48)
[2023-01-30] MEDS: BACLOFEN 10 MG TABLET GT SCH ×3 (06:48→21:32)
[2023-01-30] MEDS: ACIDOPHILUS/BULGARICUS CHEW TAB GT SCH ×2 (06:48→17:48)
[2023-01-30] MEDS: NUTRISOURCE FIBER 4 GM PACKET GT SCH ×2 (06:48→17:48)
[2023-01-30] MEDS: SIMETHICONE 80 MG TAB.CHEW GT SCH ×4 (06:48→17:48)
[2023-01-30] MEDS: HYDROGEN PEROXIDE 3% 118 ML BOTTLE TP SCH ×2 (07:20→19:12)
[2023-01-30 07:31] VITALS: TEMP 98.7
[2023-01-30] MEDS: FINASTERIDE 5 MG TABLET GT SCH (08:29)
[2023-01-30] MEDS: DULOXETINE 20 MG CAPSULE.DR GT SCH (08:29)
[2023-01-30] MEDS: ASCORBIC ACID 500 MG TABLET GT SCH (08:30)
[2023-01-30] MEDS: REMEDY ESSENTIAL ZINC PASTE 113 GM TP SCH ×2 (08:30→21:32)
[2023-01-30] MEDS: VITAMINS A AND D OINT 42 GM TUBE TP SCH (08:30)
[2023-01-30 20:12] VITALS: TEMP 98
[2023-01-30] MEDS: PROTEIN SUPPLEMENT (PROSTAT) 30 ML LIQUID GT SCH (21:29)
[2023-01-30] MEDS: MULTIVIT, IRON, MIN NO. 8, FA TABLET GT SCH (21:30)
[2023-01-31] MEDS: ACIDOPHILUS/BULGARICUS CHEW TAB GT SCH ×2 (05:43→17:21)
[2023-01-31] MEDS: BACLOFEN 10 MG TABLET GT SCH ×3 (05:43→21:37)
[2023-01-31] MEDS: NUTRISOURCE FIBER 4 GM PACKET GT SCH ×2 (05:43→17:21)
[2023-01-31] MEDS: OMEPRAZOLE 20 MG CAPSULE.DR GT SCH (05:43)
[2023-01-31] MEDS: JEVITY 1.2 1000 ML LIQUID GT PRN (06:04)
[2023-01-31] MEDS: SIMETHICONE 80 MG TAB.CHEW GT SCH ×4 (06:04→17:21)
[2023-01-31 07:50] VITALS: TEMP 98.5
[2023-01-31] MEDS: FINASTERIDE 5 MG TABLET GT SCH (08:30)
[2023-01-31] MEDS: DULOXETINE 20 MG CAPSULE.DR GT SCH (08:30)
[2023-01-31] MEDS: ASCORBIC ACID 500 MG TABLET GT SCH (08:30)
[2023-01-31] MEDS: VITAMINS A AND D OINT 42 GM TUBE TP SCH (08:31)
[2023-01-31] MEDS: REMEDY ESSENTIAL ZINC PASTE 113 GM TP SCH ×2 (08:31→21:37)
[2023-01-31] MEDS: HYDROGEN PEROXIDE 3% 118 ML BOTTLE TP SCH ×2 (08:37→20:42)
[2023-01-31] MEDS: PROTEIN SUPPLEMENT (PROSTAT) 30 ML LIQUID GT SCH (21:36)
[2023-01-31] MEDS: MULTIVIT, IRON, MIN NO. 8, FA TABLET GT SCH (21:37)
[2023-01-31 22:02] VITALS: TEMP 99
[2023-02-01] MEDS: JEVITY 1.2 1000 ML LIQUID GT PRN ×2 (01:00→15:57)
[2023-02-01] MEDS: ACIDOPHILUS/BULGARICUS CHEW TAB GT SCH ×2 (05:31→17:12)
[2023-02-01] MEDS: NUTRISOURCE FIBER 4 GM PACKET GT SCH ×2 (05:32→17:12)
[2023-02-01] MEDS: BACLOFEN 10 MG TABLET GT SCH ×3 (05:32→21:32)
[2023-02-01] MEDS: OMEPRAZOLE 20 MG CAPSULE.DR GT SCH (05:32)
[2023-02-01] MEDS: SIMETHICONE 80 MG TAB.CHEW GT SCH ×4 (06:18→17:12)
[2023-02-01 08:01] VITALS: TEMP 99.3
[2023-02-01] MEDS: HYDROGEN PEROXIDE 3% 118 ML BOTTLE TP SCH ×2 (09:01→21:12)
[2023-02-01] MEDS: FINASTERIDE 5 MG TABLET GT SCH (09:47)
[2023-02-01] MEDS: VITAMINS A AND D OINT 42 GM TUBE TP SCH (09:47)
[2023-02-01] MEDS: DULOXETINE 20 MG CAPSULE.DR GT SCH (09:47)
[2023-02-01] MEDS: REMEDY ESSENTIAL ZINC PASTE 113 GM TP SCH ×2 (09:47→21:32)
[2023-02-01] MEDS: ASCORBIC ACID 500 MG TABLET GT SCH (09:47)
[2023-02-01 20:43] VITALS: TEMP 99
[2023-02-01] MEDS: PROTEIN SUPPLEMENT (PROSTAT) 30 ML LIQUID GT SCH (21:31)
[2023-02-01] MEDS: MULTIVIT, IRON, MIN NO. 8, FA TABLET GT SCH (21:32)
[2023-02-02] MEDS: SIMETHICONE 80 MG TAB.CHEW GT SCH ×4 (00:24→17:29)
[2023-02-02] MEDS: BACLOFEN 10 MG TABLET GT SCH ×3 (05:22→22:00)
[2023-02-02] MEDS: NUTRISOURCE FIBER 4 GM PACKET GT SCH ×2 (05:22→17:29)
[2023-02-02] MEDS: OMEPRAZOLE 20 MG CAPSULE.DR GT SCH (05:22)
[2023-02-02] MEDS: ACIDOPHILUS/BULGARICUS CHEW TAB GT SCH ×2 (05:22→17:29)
[2023-02-02] MEDS: JEVITY 1.2 1000 ML LIQUID GT PRN (06:51)
[2023-02-02] MEDS: HYDROGEN PEROXIDE 3% 118 ML BOTTLE TP SCH ×2 (07:20→20:29)
[2023-02-02 08:00] VITALS: TEMP 99
[2023-02-02] MEDS: DULOXETINE 20 MG CAPSULE.DR GT SCH (09:28)
[2023-02-02] MEDS: REMEDY ESSENTIAL ZINC PASTE 113 GM TP SCH ×2 (09:28→21:00)
[2023-02-02] MEDS: FINASTERIDE 5 MG TABLET GT SCH (09:28)
[2023-02-02] MEDS: VITAMINS A AND D OINT 42 GM TUBE TP SCH (09:28)
[2023-02-02] MEDS: ASCORBIC ACID 500 MG TABLET GT SCH (09:28)
[2023-02-02 20:41] VITALS: TEMP 98.7
[2023-02-02] MEDS: MULTIVIT, IRON, MIN NO. 8, FA TABLET GT SCH (21:00)
[2023-02-02] MEDS: PROTEIN SUPPLEMENT (PROSTAT) 30 ML LIQUID GT SCH (21:00)
[2023-02-03] MEDS: ACIDOPHILUS/BULGARICUS CHEW TAB GT SCH ×2 (02:03→17:06)
[2023-02-03] MEDS: OMEPRAZOLE 20 MG CAPSULE.DR GT SCH (06:35)
[2023-02-03] MEDS: NUTRISOURCE FIBER 4 GM PACKET GT SCH ×2 (06:35→17:06)
[2023-02-03] MEDS: BACLOFEN 10 MG TABLET GT SCH ×3 (06:35→22:38)
[2023-02-03] MEDS: SIMETHICONE 80 MG TAB.CHEW GT SCH ×5 (06:35→23:36)
[2023-02-03 08:00] VITALS: TEMP 98
[2023-02-03] MEDS: HYDROGEN PEROXIDE 3% 118 ML BOTTLE TP SCH ×2 (09:37→21:00)
[2023-02-03] MEDS: ASCORBIC ACID 500 MG TABLET GT SCH (09:48)
[2023-02-03] MEDS: REMEDY ESSENTIAL ZINC PASTE 113 GM TP SCH ×2 (09:48→21:00)
[2023-02-03] MEDS: FINASTERIDE 5 MG TABLET GT SCH (09:48)
[2023-02-03] MEDS: VITAMINS A AND D OINT 42 GM TUBE TP SCH (09:48)
[2023-02-03] MEDS: DULOXETINE 20 MG CAPSULE.DR GT SCH (09:48)
[2023-02-03] MEDS: JEVITY 1.2 1000 ML LIQUID GT PRN (17:18)
[2023-02-03 20:24] VITALS: TEMP 98.8
[2023-02-03] MEDS: MULTIVIT, IRON, MIN NO. 8, FA TABLET GT SCH (21:00)
[2023-02-03] MEDS: PROTEIN SUPPLEMENT (PROSTAT) 30 ML LIQUID GT SCH (21:00)
[2023-02-04] MEDS: BACLOFEN 10 MG TABLET GT SCH ×3 (06:17→22:07)
[2023-02-04] MEDS: SIMETHICONE 80 MG TAB.CHEW GT SCH ×4 (06:17→23:57)
[2023-02-04] MEDS: ACIDOPHILUS/BULGARICUS CHEW TAB GT SCH ×2 (06:18→17:39)
[2023-02-04] MEDS: NUTRISOURCE FIBER 4 GM PACKET GT SCH ×2 (06:18→17:39)
[2023-02-04] MEDS: OMEPRAZOLE 20 MG CAPSULE.DR GT SCH (06:18)
[2023-02-04] MEDS: HYDROGEN PEROXIDE 3% 118 ML BOTTLE TP SCH ×2 (07:34→21:11)
[2023-02-04 07:44] VITALS: TEMP 98.6
[2023-02-04] MEDS: VITAMINS A AND D OINT 42 GM TUBE TP SCH (09:18)
[2023-02-04] MEDS: REMEDY ESSENTIAL ZINC PASTE 113 GM TP SCH ×2 (09:18→20:22)
[2023-02-04] MEDS: FINASTERIDE 5 MG TABLET GT SCH (09:18)
[2023-02-04] MEDS: DULOXETINE 20 MG CAPSULE.DR GT SCH (09:18)
[2023-02-04] MEDS: ASCORBIC ACID 500 MG TABLET GT SCH (09:18)
[2023-02-04] MEDS: MULTIVIT, IRON, MIN NO. 8, FA TABLET GT SCH (20:22)
[2023-02-04] MEDS: PROTEIN SUPPLEMENT (PROSTAT) 30 ML LIQUID GT SCH (20:22)
[2023-02-04 20:38] VITALS: TEMP 98.3
[2023-02-05] MEDS: JEVITY 1.2 1000 ML LIQUID GT PRN ×2 (01:06→18:08)
[2023-02-05] MEDS: SIMETHICONE 80 MG TAB.CHEW GT SCH ×3 (05:45→18:07)
[2023-02-05] MEDS: BACLOFEN 10 MG TABLET GT SCH ×3 (05:45→22:09)
[2023-02-05] MEDS: NUTRISOURCE FIBER 4 GM PACKET GT SCH ×2 (05:45→18:07)
[2023-02-05] MEDS: OMEPRAZOLE 20 MG CAPSULE.DR GT SCH (05:45)
[2023-02-05] MEDS: ACIDOPHILUS/BULGARICUS CHEW TAB GT SCH ×2 (05:45→18:07)
[2023-02-05 07:26] LABS: BASOPHILS % (AUTO) 0.4 % (0.0-2.0); EOSINOPHILS # (AUTO) 0.2 K/uL (0.0-0.7); EOSINOPHILS % (AUTO) 2.9 % (0.0-7.0); HEMATOCRIT 37.6 % (36.7-47.1); HEMOGLOBIN 12.5 g/dL (12.5-16.3); LYMPHOCYTES # (AUTO) 1.6 K/uL (0.8-4.8); LYMPHOCYTES % (AUTO) 28.6 % (20.5-51.5); MEAN CORPUSCULAR HEMOGLOBIN 28.6 uug (23.8-33.4); MEAN CORPUSCULAR HGB CONC 33 g/dL (32.5-36.3); MONOCYTES # (AUTO) 0.4 K/uL (0.1-1.30); MONOCYTES % (AUTO) 6.8 % (0.0-11.0); NEUTROPHILS # (AUTO) 3.4 K/uL (1.8-8.9); NEUTROPHILS % (AUTO) 61.3 % (38.5-71.5); PLATELET COUNT (AUTO) 192 K/uL (152-348); RED BLOOD CELL COUNT(AUTO) 4.37 MIL/uL (4.06-5.63); RED CELL DISTRIBUTION WIDTH 14.7 % (12.1-16.2); WHITE BLOOD COUNT (AUTO) 5.5 K/uL (3.6-10.2)
[2023-02-05 07:39] LABS: CALCIUM 8.7 mg/dL (8.5-10.1); CARBON DIOXIDE 27 mmol/L (21-32); CHLORIDE 104 mmol/L (98-107); CREATININE 0.6 mg/dL (0.6-1.3); GLUCOSE 113 mg/dL (74-106); PHOSPHOROUS 3.7 mg/dL (2.5-4.9); POTASSIUM 4.4 mmol/L (3.5-5.1); SODIUM SERUM 138 mmol/L (136-145); UREA NITROGEN, BLOOD 31 mg/dL (7-18)
[2023-02-05 08:00] VITALS: TEMP 98.6
[2023-02-05] MEDS: FINASTERIDE 5 MG TABLET GT SCH (08:43)
[2023-02-05] MEDS: ASCORBIC ACID 500 MG TABLET GT SCH (08:43)
[2023-02-05] MEDS: DULOXETINE 20 MG CAPSULE.DR GT SCH (08:43)
[2023-02-05] MEDS: VITAMINS A AND D OINT 42 GM TUBE TP SCH (08:44)
[2023-02-05] MEDS: REMEDY ESSENTIAL ZINC PASTE 113 GM TP SCH ×2 (08:44→20:31)
[2023-02-05 08:49] LABS: DIFFERENTIAL COMMENT 1
[2023-02-05] MEDS: HYDROGEN PEROXIDE 3% 118 ML BOTTLE TP SCH ×2 (09:23→21:38)
[2023-02-05 20:07] VITALS: TEMP 98.4
[2023-02-05] MEDS: PROTEIN SUPPLEMENT (PROSTAT) 30 ML LIQUID GT SCH (20:31)
[2023-02-05] MEDS: MULTIVIT, IRON, MIN NO. 8, FA TABLET GT SCH (20:31)
[2023-02-06] MEDS: SIMETHICONE 80 MG TAB.CHEW GT SCH ×5 (00:44→23:34)
[2023-02-06] MEDS: NUTRISOURCE FIBER 4 GM PACKET GT SCH ×2 (05:56→17:20)
[2023-02-06] MEDS: ACIDOPHILUS/BULGARICUS CHEW TAB GT SCH ×2 (05:56→17:20)
[2023-02-06] MEDS: BACLOFEN 10 MG TABLET GT SCH ×3 (05:56→22:31)
[2023-02-06] MEDS: OMEPRAZOLE 20 MG CAPSULE.DR GT SCH (05:56)
[2023-02-06 08:00] VITALS: TEMP 98.2
[2023-02-06] MEDS: FINASTERIDE 5 MG TABLET GT SCH (08:37)
[2023-02-06] MEDS: DULOXETINE 20 MG CAPSULE.DR GT SCH (08:37)
[2023-02-06] MEDS: ASCORBIC ACID 500 MG TABLET GT SCH (08:37)
[2023-02-06] MEDS: VITAMINS A AND D OINT 42 GM TUBE TP SCH (08:38)
[2023-02-06] MEDS: REMEDY ESSENTIAL ZINC PASTE 113 GM TP SCH ×2 (08:38→20:42)
[2023-02-06] MEDS: HYDROGEN PEROXIDE 3% 118 ML BOTTLE TP SCH ×2 (09:10→21:42)
[2023-02-06] MEDS: JEVITY 1.2 1000 ML LIQUID GT PRN (12:04)
[2023-02-06 20:01] VITALS: TEMP 98
[2023-02-06] MEDS: PROTEIN SUPPLEMENT (PROSTAT) 30 ML LIQUID GT SCH (20:42)
[2023-02-06] MEDS: MULTIVIT, IRON, MIN NO. 8, FA TABLET GT SCH (20:42)
[2023-02-07] MEDS: NUTRISOURCE FIBER 4 GM PACKET GT SCH ×2 (05:38→18:01)
[2023-02-07] MEDS: OMEPRAZOLE 20 MG CAPSULE.DR GT SCH (05:38)
[2023-02-07] MEDS: BACLOFEN 10 MG TABLET GT SCH ×3 (05:38→22:29)
[2023-02-07] MEDS: SIMETHICONE 80 MG TAB.CHEW GT SCH ×4 (05:38→23:48)
[2023-02-07] MEDS: ACIDOPHILUS/BULGARICUS CHEW TAB GT SCH ×2 (05:38→18:00)
[2023-02-07 07:52] VITALS: TEMP 97.4
[2023-02-07] MEDS: FINASTERIDE 5 MG TABLET GT SCH (08:35)
[2023-02-07] MEDS: DULOXETINE 20 MG CAPSULE.DR GT SCH (08:35)
[2023-02-07] MEDS: VITAMINS A AND D OINT 42 GM TUBE TP SCH (08:36)
[2023-02-07] MEDS: ASCORBIC ACID 500 MG TABLET GT SCH (08:36)
[2023-02-07] MEDS: HYDROGEN PEROXIDE 3% 118 ML BOTTLE TP SCH ×2 (08:36→19:09)
[2023-02-07] MEDS: REMEDY ESSENTIAL ZINC PASTE 113 GM TP SCH ×2 (08:36→20:32)
[2023-02-07] MEDS: PROTEIN SUPPLEMENT (PROSTAT) 30 ML LIQUID GT SCH (20:32)
[2023-02-07] MEDS: MULTIVIT, IRON, MIN NO. 8, FA TABLET GT SCH (20:32)
[2023-02-07 20:44] VITALS: TEMP 98
[2023-02-08] MEDS: JEVITY 1.2 1000 ML LIQUID GT PRN (03:00)
[2023-02-08] MEDS: ACIDOPHILUS/BULGARICUS CHEW TAB GT SCH ×2 (05:31→18:34)
[2023-02-08] MEDS: BACLOFEN 10 MG TABLET GT SCH ×3 (05:31→22:09)
[2023-02-08] MEDS: SIMETHICONE 80 MG TAB.CHEW GT SCH ×3 (05:31→18:34)
[2023-02-08] MEDS: OMEPRAZOLE 20 MG CAPSULE.DR GT SCH (05:31)
[2023-02-08] MEDS: NUTRISOURCE FIBER 4 GM PACKET GT SCH ×2 (05:31→18:34)
[2023-02-08 07:58] VITALS: TEMP 98.3
[2023-02-08] MEDS: HYDROGEN PEROXIDE 3% 118 ML BOTTLE TP SCH ×2 (08:09→21:00)
[2023-02-08] MEDS: REMEDY ESSENTIAL ZINC PASTE 113 GM TP SCH ×2 (09:00→20:53)
[2023-02-08] MEDS: ASCORBIC ACID 500 MG TABLET GT SCH (09:00)
[2023-02-08] MEDS: FINASTERIDE 5 MG TABLET GT SCH (09:00)
[2023-02-08] MEDS: VITAMINS A AND D OINT 42 GM TUBE TP SCH (09:00)
[2023-02-08] MEDS: DULOXETINE 20 MG CAPSULE.DR GT SCH (09:00)
[2023-02-08 20:00] VITALS: TEMP 98.8
[2023-02-08] MEDS: MULTIVIT, IRON, MIN NO. 8, FA TABLET GT SCH (20:53)
[2023-02-08] MEDS: PROTEIN SUPPLEMENT (PROSTAT) 30 ML LIQUID GT SCH (20:53)
[2023-02-09] MEDS: SIMETHICONE 80 MG TAB.CHEW GT SCH ×4 (06:06→17:42)
[2023-02-09] MEDS: OMEPRAZOLE 20 MG CAPSULE.DR GT SCH (06:06)
[2023-02-09] MEDS: BACLOFEN 10 MG TABLET GT SCH ×3 (06:06→22:26)
[2023-02-09] MEDS: NUTRISOURCE FIBER 4 GM PACKET GT SCH ×2 (06:06→17:42)
[2023-02-09] MEDS: ACIDOPHILUS/BULGARICUS CHEW TAB GT SCH ×2 (06:06→17:42)
[2023-02-09 07:42] VITALS: TEMP 97.9
[2023-02-09] MEDS: HYDROGEN PEROXIDE 3% 118 ML BOTTLE TP SCH ×2 (07:56→23:21)
[2023-02-09] MEDS: DULOXETINE 20 MG CAPSULE.DR GT SCH (08:29)
[2023-02-09] MEDS: REMEDY ESSENTIAL ZINC PASTE 113 GM TP SCH ×2 (08:30→21:00)
[2023-02-09] MEDS: VITAMINS A AND D OINT 42 GM TUBE TP SCH (08:30)
[2023-02-09] MEDS: FINASTERIDE 5 MG TABLET GT SCH (08:30)
[2023-02-09] MEDS: ASCORBIC ACID 500 MG TABLET GT SCH (08:30)
[2023-02-09] MEDS: JEVITY 1.2 1000 ML LIQUID GT PRN (13:29)
[2023-02-09 20:54] VITALS: TEMP 98
[2023-02-09] MEDS: PROTEIN SUPPLEMENT (PROSTAT) 30 ML LIQUID GT SCH (21:00)
[2023-02-09] MEDS: MULTIVIT, IRON, MIN NO. 8, FA TABLET GT SCH (21:00)
[2023-02-10] MEDS: ACIDOPHILUS/BULGARICUS CHEW TAB GT SCH ×2 (06:42→17:18)
[2023-02-10] MEDS: SIMETHICONE 80 MG TAB.CHEW GT SCH ×4 (06:43→17:18)
[2023-02-10] MEDS: BACLOFEN 10 MG TABLET GT SCH ×3 (06:43→21:10)
[2023-02-10] MEDS: OMEPRAZOLE 20 MG CAPSULE.DR GT SCH (06:45)
[2023-02-10] MEDS: NUTRISOURCE FIBER 4 GM PACKET GT SCH ×2 (06:45→17:18)
[2023-02-10] MEDS: JEVITY 1.2 1000 ML LIQUID GT PRN (06:46)
[2023-02-10 07:36] VITALS: TEMP 98.6
[2023-02-10] MEDS: DULOXETINE 20 MG CAPSULE.DR GT SCH (08:56)
[2023-02-10] MEDS: VITAMINS A AND D OINT 42 GM TUBE TP SCH (08:56)
[2023-02-10] MEDS: ASCORBIC ACID 500 MG TABLET GT SCH (08:56)
[2023-02-10] MEDS: REMEDY ESSENTIAL ZINC PASTE 113 GM TP SCH ×2 (08:56→21:10)
[2023-02-10] MEDS: FINASTERIDE 5 MG TABLET GT SCH (08:56)
[2023-02-10] MEDS: HYDROGEN PEROXIDE 3% 118 ML BOTTLE TP SCH ×2 (09:42→21:04)
[2023-02-10 20:47] VITALS: TEMP 98.2
[2023-02-10] MEDS: PROTEIN SUPPLEMENT (PROSTAT) 30 ML LIQUID GT SCH (21:10)
[2023-02-10] MEDS: MULTIVIT, IRON, MIN NO. 8, FA TABLET GT SCH (21:10)
[2023-02-11] MEDS: JEVITY 1.2 1000 ML LIQUID GT PRN ×2 (01:27→18:03)
[2023-02-11] MEDS: ACIDOPHILUS/BULGARICUS CHEW TAB GT SCH ×2 (05:56→17:14)
[2023-02-11] MEDS: SIMETHICONE 80 MG TAB.CHEW GT SCH ×4 (05:56→17:14)
[2023-02-11] MEDS: BACLOFEN 10 MG TABLET GT SCH ×3 (05:56→22:27)
[2023-02-11] MEDS: OMEPRAZOLE 20 MG CAPSULE.DR GT SCH (05:56)
[2023-02-11] MEDS: NUTRISOURCE FIBER 4 GM PACKET GT SCH ×2 (05:56→17:14)
[2023-02-11 07:48] VITALS: TEMP 98.1
[2023-02-11] MEDS: DULOXETINE 20 MG CAPSULE.DR GT SCH (08:52)
[2023-02-11] MEDS: REMEDY ESSENTIAL ZINC PASTE 113 GM TP SCH ×2 (08:53→21:00)
[2023-02-11] MEDS: ASCORBIC ACID 500 MG TABLET GT SCH (08:53)
[2023-02-11] MEDS: FINASTERIDE 5 MG TABLET GT SCH (08:53)
[2023-02-11] MEDS: VITAMINS A AND D OINT 42 GM TUBE TP SCH (08:53)
[2023-02-11] MEDS: HYDROGEN PEROXIDE 3% 118 ML BOTTLE TP SCH ×2 (09:40→21:00)
[2023-02-11 20:13] VITALS: TEMP 98.2
[2023-02-11] MEDS: PROTEIN SUPPLEMENT (PROSTAT) 30 ML LIQUID GT SCH (21:00)
[2023-02-11] MEDS: MULTIVIT, IRON, MIN NO. 8, FA TABLET GT SCH (21:00)
[2023-02-12] MEDS: BACLOFEN 10 MG TABLET GT SCH ×3 (06:00→21:02)
[2023-02-12] MEDS: SIMETHICONE 80 MG TAB.CHEW GT SCH ×4 (06:00→17:22)
[2023-02-12] MEDS: OMEPRAZOLE 20 MG CAPSULE.DR GT SCH (06:00)
[2023-02-12] MEDS: NUTRISOURCE FIBER 4 GM PACKET GT SCH ×2 (06:00→17:22)
[2023-02-12] MEDS: ACIDOPHILUS/BULGARICUS CHEW TAB GT SCH ×2 (06:00→17:22)
[2023-02-12 07:31] VITALS: TEMP 98.4
[2023-02-12] MEDS: FINASTERIDE 5 MG TABLET GT SCH (08:46)
[2023-02-12] MEDS: DULOXETINE 20 MG CAPSULE.DR GT SCH (08:46)
[2023-02-12] MEDS: REMEDY ESSENTIAL ZINC PASTE 113 GM TP SCH ×2 (08:46→20:11)
[2023-02-12] MEDS: VITAMINS A AND D OINT 42 GM TUBE TP SCH (08:46)
[2023-02-12] MEDS: ASCORBIC ACID 500 MG TABLET GT SCH (08:46)
[2023-02-12] MEDS: HYDROGEN PEROXIDE 3% 118 ML BOTTLE TP SCH ×2 (09:19→21:13)
[2023-02-12] MEDS: JEVITY 1.2 1000 ML LIQUID GT PRN (09:38)
[2023-02-12 10:00] VITALS: O2SAT 99
[2023-02-12 20:00] VITALS: TEMP 98.8
[2023-02-12] MEDS: MULTIVIT, IRON, MIN NO. 8, FA TABLET GT SCH (20:10)
[2023-02-12] MEDS: PROTEIN SUPPLEMENT (PROSTAT) 30 ML LIQUID GT SCH (20:10)
[2023-02-13] MEDS: SIMETHICONE 80 MG TAB.CHEW GT SCH ×4 (00:07→17:36)
[2023-02-13] MEDS: JEVITY 1.2 1000 ML LIQUID GT PRN (00:09)
[2023-02-13] MEDS: OMEPRAZOLE 20 MG CAPSULE.DR GT SCH (05:12)
[2023-02-13] MEDS: BACLOFEN 10 MG TABLET GT SCH ×3 (05:12→22:23)
[2023-02-13] MEDS: ACIDOPHILUS/BULGARICUS CHEW TAB GT SCH ×2 (05:12→17:36)
[2023-02-13] MEDS: NUTRISOURCE FIBER 4 GM PACKET GT SCH ×2 (05:12→17:36)
[2023-02-13] MEDS: HYDROGEN PEROXIDE 3% 118 ML BOTTLE TP SCH ×2 (08:14→20:43)
[2023-02-13] MEDS: DULOXETINE 20 MG CAPSULE.DR GT SCH (08:55)
[2023-02-13] MEDS: ASCORBIC ACID 500 MG TABLET GT SCH (08:56)
[2023-02-13] MEDS: REMEDY ESSENTIAL ZINC PASTE 113 GM TP SCH ×2 (08:56→20:31)
[2023-02-13] MEDS: VITAMINS A AND D OINT 42 GM TUBE TP SCH (08:56)
[2023-02-13] MEDS: FINASTERIDE 5 MG TABLET GT SCH (08:56)
[2023-02-13 09:16] VITALS: TEMP 99.9
[2023-02-13] MEDS: HARRIS FLUSH ENEMA PR PRN (17:04)
[2023-02-13 19:51] VITALS: TEMP 98.5
[2023-02-13] MEDS: MULTIVIT, IRON, MIN NO. 8, FA TABLET GT SCH (20:31)
[2023-02-13] MEDS: PROTEIN SUPPLEMENT (PROSTAT) 30 ML LIQUID GT SCH (20:31)
[2023-02-14] MEDS: SIMETHICONE 80 MG TAB.CHEW GT SCH ×4 (00:15→17:03)
[2023-02-14] MEDS: BACLOFEN 10 MG TABLET GT SCH ×3 (06:06→22:24)
[2023-02-14] MEDS: OMEPRAZOLE 20 MG CAPSULE.DR GT SCH (06:06)
[2023-02-14] MEDS: NUTRISOURCE FIBER 4 GM PACKET GT SCH ×2 (06:06→17:03)
[2023-02-14] MEDS: ACIDOPHILUS/BULGARICUS CHEW TAB GT SCH ×2 (06:06→17:03)
[2023-02-14] MEDS: DULOXETINE 20 MG CAPSULE.DR GT SCH (08:27)
[2023-02-14] MEDS: ASCORBIC ACID 500 MG TABLET GT SCH (08:27)
[2023-02-14] MEDS: FINASTERIDE 5 MG TABLET GT SCH (08:27)
[2023-02-14] MEDS: REMEDY ESSENTIAL ZINC PASTE 113 GM TP SCH ×2 (08:27→20:36)
[2023-02-14] MEDS: VITAMINS A AND D OINT 42 GM TUBE TP SCH (08:27)
[2023-02-14 09:10] VITALS: TEMP 98.2
[2023-02-14] MEDS: HYDROGEN PEROXIDE 3% 118 ML BOTTLE TP SCH ×2 (09:15→20:49)
[2023-02-14] MEDS: JEVITY 1.2 1000 ML LIQUID GT PRN (12:45)
[2023-02-14 19:53] VITALS: TEMP 99
[2023-02-14] MEDS: MULTIVIT, IRON, MIN NO. 8, FA TABLET GT SCH (20:36)
[2023-02-14] MEDS: PROTEIN SUPPLEMENT (PROSTAT) 30 ML LIQUID GT SCH (20:36)
[2023-02-15] MEDS: SIMETHICONE 80 MG TAB.CHEW GT SCH ×4 (00:15→17:34)
[2023-02-15] MEDS: JEVITY 1.2 1000 ML LIQUID GT PRN ×2 (04:44→22:42)
[2023-02-15] MEDS: OMEPRAZOLE 20 MG CAPSULE.DR GT SCH (05:55)
[2023-02-15] MEDS: BACLOFEN 10 MG TABLET GT SCH ×3 (05:55→22:10)
[2023-02-15] MEDS: NUTRISOURCE FIBER 4 GM PACKET GT SCH ×2 (05:55→17:34)
[2023-02-15] MEDS: ACIDOPHILUS/BULGARICUS CHEW TAB GT SCH ×2 (05:55→17:34)
[2023-02-15 08:10] VITALS: TEMP 97.7
[2023-02-15] MEDS: HYDROGEN PEROXIDE 3% 118 ML BOTTLE TP SCH ×2 (09:00→22:04)
[2023-02-15] MEDS: ASCORBIC ACID 500 MG TABLET GT SCH (09:00)
[2023-02-15] MEDS: FINASTERIDE 5 MG TABLET GT SCH (09:00)
[2023-02-15] MEDS: REMEDY ESSENTIAL ZINC PASTE 113 GM TP SCH ×2 (09:00→20:57)
[2023-02-15] MEDS: DULOXETINE 20 MG CAPSULE.DR GT SCH (09:00)
[2023-02-15] MEDS: VITAMINS A AND D OINT 42 GM TUBE TP SCH (09:00)
[2023-02-15 20:00] VITALS: TEMP 98
[2023-02-15] MEDS: PROTEIN SUPPLEMENT (PROSTAT) 30 ML LIQUID GT SCH (20:57)
[2023-02-15] MEDS: MULTIVIT, IRON, MIN NO. 8, FA TABLET GT SCH (20:57)
[2023-02-16] MEDS: SIMETHICONE 80 MG TAB.CHEW GT SCH ×4 (00:39→17:47)
[2023-02-16] MEDS: BACLOFEN 10 MG TABLET GT SCH ×3 (05:06→22:42)
[2023-02-16] MEDS: ACIDOPHILUS/BULGARICUS CHEW TAB GT SCH ×2 (05:06→17:47)
[2023-02-16] MEDS: OMEPRAZOLE 20 MG CAPSULE.DR GT SCH (05:07)
[2023-02-16] MEDS: NUTRISOURCE FIBER 4 GM PACKET GT SCH ×2 (05:07→17:47)
[2023-02-16 07:44] VITALS: TEMP 99.3
[2023-02-16] MEDS: HYDROGEN PEROXIDE 3% 118 ML BOTTLE TP SCH ×2 (09:08→19:24)
[2023-02-16] MEDS: ASCORBIC ACID 500 MG TABLET GT SCH (09:40)
[2023-02-16] MEDS: DULOXETINE 20 MG CAPSULE.DR GT SCH (09:40)
[2023-02-16] MEDS: VITAMINS A AND D OINT 42 GM TUBE TP SCH (09:40)
[2023-02-16] MEDS: REMEDY ESSENTIAL ZINC PASTE 113 GM TP SCH ×2 (09:40→20:36)
[2023-02-16] MEDS: FINASTERIDE 5 MG TABLET GT SCH (09:40)
[2023-02-16] MEDS: JEVITY 1.2 1000 ML LIQUID GT PRN (16:37)
[2023-02-16 20:00] VITALS: TEMP 98
[2023-02-16] MEDS: MULTIVIT, IRON, MIN NO. 8, FA TABLET GT SCH (20:35)
[2023-02-16] MEDS: PROTEIN SUPPLEMENT (PROSTAT) 30 ML LIQUID GT SCH (20:35)
[2023-02-17] MEDS: SIMETHICONE 80 MG TAB.CHEW GT SCH ×4 (00:04→18:17)
[2023-02-17] MEDS: OMEPRAZOLE 20 MG CAPSULE.DR GT SCH (05:51)
[2023-02-17] MEDS: NUTRISOURCE FIBER 4 GM PACKET GT SCH ×2 (05:51→18:17)
[2023-02-17] MEDS: BACLOFEN 10 MG TABLET GT SCH ×3 (05:51→22:43)
[2023-02-17] MEDS: ACIDOPHILUS/BULGARICUS CHEW TAB GT SCH ×2 (05:51→18:17)
[2023-02-17 07:48] VITALS: TEMP 99
[2023-02-17] MEDS: HYDROGEN PEROXIDE 3% 118 ML BOTTLE TP SCH ×2 (09:36→21:02)
[2023-02-17] MEDS: FINASTERIDE 5 MG TABLET GT SCH (09:47)
[2023-02-17] MEDS: DULOXETINE 20 MG CAPSULE.DR GT SCH (09:47)
[2023-02-17] MEDS: VITAMINS A AND D OINT 42 GM TUBE TP SCH (09:47)
[2023-02-17] MEDS: REMEDY ESSENTIAL ZINC PASTE 113 GM TP SCH ×2 (09:47→21:00)
[2023-02-17] MEDS: ASCORBIC ACID 500 MG TABLET GT SCH (09:47)
[2023-02-17] MEDS: JEVITY 1.2 1000 ML LIQUID GT PRN (12:07)
[2023-02-17 20:00] VITALS: TEMP 98
[2023-02-17] MEDS: MULTIVIT, IRON, MIN NO. 8, FA TABLET GT SCH (21:00)
[2023-02-17] MEDS: PROTEIN SUPPLEMENT (PROSTAT) 30 ML LIQUID GT SCH (21:00)
[2023-02-18] MEDS: SIMETHICONE 80 MG TAB.CHEW GT SCH ×4 (00:10→17:29)
[2023-02-18] MEDS: JEVITY 1.2 1000 ML LIQUID GT PRN (04:00)
[2023-02-18] MEDS: NUTRISOURCE FIBER 4 GM PACKET GT SCH ×2 (05:56→17:29)
[2023-02-18] MEDS: ACIDOPHILUS/BULGARICUS CHEW TAB GT SCH ×2 (05:56→17:29)
[2023-02-18] MEDS: BACLOFEN 10 MG TABLET GT SCH ×3 (05:56→21:07)
[2023-02-18] MEDS: OMEPRAZOLE 20 MG CAPSULE.DR GT SCH (05:57)
[2023-02-18 08:06] VITALS: TEMP 98.7
[2023-02-18] MEDS: DULOXETINE 20 MG CAPSULE.DR GT SCH (08:58)
[2023-02-18] MEDS: REMEDY ESSENTIAL ZINC PASTE 113 GM TP SCH ×2 (08:58→20:50)
[2023-02-18] MEDS: FINASTERIDE 5 MG TABLET GT SCH (08:58)
[2023-02-18] MEDS: ASCORBIC ACID 500 MG TABLET GT SCH (08:58)
[2023-02-18] MEDS: VITAMINS A AND D OINT 42 GM TUBE TP SCH (09:05)
[2023-02-18] MEDS: HYDROGEN PEROXIDE 3% 118 ML BOTTLE TP SCH ×2 (09:15→21:00)
[2023-02-18 20:00] VITALS: TEMP 98.7
[2023-02-18] MEDS: MULTIVIT, IRON, MIN NO. 8, FA TABLET GT SCH (20:46)
[2023-02-18] MEDS: PROTEIN SUPPLEMENT (PROSTAT) 30 ML LIQUID GT SCH (20:46)
[2023-02-19] MEDS: HARRIS FLUSH ENEMA PR PRN (03:30)
[2023-02-19] MEDS: OMEPRAZOLE 20 MG CAPSULE.DR GT SCH (06:20)
[2023-02-19] MEDS: NUTRISOURCE FIBER 4 GM PACKET GT SCH ×2 (06:20→17:08)
[2023-02-19] MEDS: BACLOFEN 10 MG TABLET GT SCH ×3 (06:20→21:24)
[2023-02-19] MEDS: SIMETHICONE 80 MG TAB.CHEW GT SCH ×4 (06:20→17:08)
[2023-02-19] MEDS: ACIDOPHILUS/BULGARICUS CHEW TAB GT SCH ×2 (06:20→17:08)
[2023-02-19 08:00] VITALS: TEMP 97.5
[2023-02-19] MEDS: DULOXETINE 20 MG CAPSULE.DR GT SCH (08:12)
[2023-02-19] MEDS: VITAMINS A AND D OINT 42 GM TUBE TP SCH (08:12)
[2023-02-19] MEDS: ASCORBIC ACID 500 MG TABLET GT SCH (08:12)
[2023-02-19] MEDS: FINASTERIDE 5 MG TABLET GT SCH (08:12)
[2023-02-19] MEDS: REMEDY ESSENTIAL ZINC PASTE 113 GM TP SCH ×2 (08:12→21:24)
[2023-02-19] MEDS: HYDROGEN PEROXIDE 3% 118 ML BOTTLE TP SCH ×2 (09:00→21:32)
[2023-02-19] MEDS: JEVITY 1.2 1000 ML LIQUID GT PRN (13:48)
[2023-02-19 20:00] VITALS: TEMP 98.5
[2023-02-19] MEDS: PROTEIN SUPPLEMENT (PROSTAT) 30 ML LIQUID GT SCH (21:22)
[2023-02-19] MEDS: MULTIVIT, IRON, MIN NO. 8, FA TABLET GT SCH (21:22)
[2023-02-20] MEDS: JEVITY 1.2 1000 ML LIQUID GT PRN (05:00)
[2023-02-20] MEDS: NUTRISOURCE FIBER 4 GM PACKET GT SCH ×2 (05:52→17:02)
[2023-02-20] MEDS: ACIDOPHILUS/BULGARICUS CHEW TAB GT SCH ×2 (05:52→17:02)
[2023-02-20] MEDS: OMEPRAZOLE 20 MG CAPSULE.DR GT SCH (05:52)
[2023-02-20] MEDS: SIMETHICONE 80 MG TAB.CHEW GT SCH ×4 (05:52→17:02)
[2023-02-20] MEDS: BACLOFEN 10 MG TABLET GT SCH ×3 (05:52→21:23)
[2023-02-20 07:15] VITALS: TEMP 98.7
[2023-02-20] MEDS: FINASTERIDE 5 MG TABLET GT SCH (08:39)
[2023-02-20] MEDS: VITAMINS A AND D OINT 42 GM TUBE TP SCH (08:39)
[2023-02-20] MEDS: DULOXETINE 20 MG CAPSULE.DR GT SCH (08:39)
[2023-02-20] MEDS: REMEDY ESSENTIAL ZINC PASTE 113 GM TP SCH ×2 (08:39→21:23)
[2023-02-20] MEDS: ASCORBIC ACID 500 MG TABLET GT SCH (08:39)
[2023-02-20] MEDS: HYDROGEN PEROXIDE 3% 118 ML BOTTLE TP SCH ×2 (09:01→21:00)
[2023-02-20] MEDS: HARRIS FLUSH ENEMA PR PRN (13:54)
[2023-02-20 20:00] VITALS: TEMP 98.1
[2023-02-20] MEDS: PROTEIN SUPPLEMENT (PROSTAT) 30 ML LIQUID GT SCH (21:19)
[2023-02-20] MEDS: MULTIVIT, IRON, MIN NO. 8, FA TABLET GT SCH (21:20)
[2023-02-21] MEDS: JEVITY 1.2 1000 ML LIQUID GT PRN ×2 (01:41→22:42)
[2023-02-21] MEDS: SIMETHICONE 80 MG TAB.CHEW GT SCH ×4 (05:59→17:17)
[2023-02-21] MEDS: NUTRISOURCE FIBER 4 GM PACKET GT SCH ×2 (05:59→17:17)
[2023-02-21] MEDS: ACIDOPHILUS/BULGARICUS CHEW TAB GT SCH ×2 (05:59→17:16)
[2023-02-21] MEDS: OMEPRAZOLE 20 MG CAPSULE.DR GT SCH (05:59)
[2023-02-21] MEDS: BACLOFEN 10 MG TABLET GT SCH ×3 (05:59→21:58)
[2023-02-21 07:21] VITALS: TEMP 99.5
[2023-02-21] MEDS: HYDROGEN PEROXIDE 3% 118 ML BOTTLE TP SCH ×2 (09:38→21:04)
[2023-02-21] MEDS: FINASTERIDE 5 MG TABLET GT SCH (09:47)
[2023-02-21] MEDS: REMEDY ESSENTIAL ZINC PASTE 113 GM TP SCH ×2 (09:47→20:54)
[2023-02-21] MEDS: DULOXETINE 20 MG CAPSULE.DR GT SCH (09:47)
[2023-02-21] MEDS: VITAMINS A AND D OINT 42 GM TUBE TP SCH (09:47)
[2023-02-21] MEDS: ASCORBIC ACID 500 MG TABLET GT SCH (09:47)
[2023-02-21 20:00] VITALS: TEMP 98
[2023-02-21] MEDS: PROTEIN SUPPLEMENT (PROSTAT) 30 ML LIQUID GT SCH (20:53)
[2023-02-21] MEDS: MULTIVIT, IRON, MIN NO. 8, FA TABLET GT SCH (20:53)
[2023-02-22] MEDS: ACIDOPHILUS/BULGARICUS CHEW TAB GT SCH ×2 (05:41→17:00)
[2023-02-22] MEDS: SIMETHICONE 80 MG TAB.CHEW GT SCH ×4 (05:41→17:00)
[2023-02-22] MEDS: NUTRISOURCE FIBER 4 GM PACKET GT SCH ×2 (05:41→17:00)
[2023-02-22] MEDS: OMEPRAZOLE 20 MG CAPSULE.DR GT SCH (05:41)
[2023-02-22] MEDS: BACLOFEN 10 MG TABLET GT SCH ×3 (05:41→21:18)
[2023-02-22 07:50] VITALS: TEMP 98.7
[2023-02-22] MEDS: HYDROGEN PEROXIDE 3% 118 ML BOTTLE TP SCH ×2 (08:18→21:54)
[2023-02-22] MEDS: DULOXETINE 20 MG CAPSULE.DR GT SCH (09:30)
[2023-02-22] MEDS: FINASTERIDE 5 MG TABLET GT SCH (09:33)
[2023-02-22] MEDS: REMEDY ESSENTIAL ZINC PASTE 113 GM TP SCH ×2 (09:34→21:18)
[2023-02-22] MEDS: VITAMINS A AND D OINT 42 GM TUBE TP SCH (09:34)
[2023-02-22] MEDS: ASCORBIC ACID 500 MG TABLET GT SCH (09:34)
[2023-02-22] MEDS: JEVITY 1.2 1000 ML LIQUID GT PRN (18:44)
[2023-02-22 20:16] VITALS: TEMP 98
[2023-02-22] MEDS: PROTEIN SUPPLEMENT (PROSTAT) 30 ML LIQUID GT SCH (21:14)
[2023-02-22] MEDS: MULTIVIT, IRON, MIN NO. 8, FA TABLET GT SCH (21:15)
[2023-02-23] MEDS: HARRIS FLUSH ENEMA PR PRN (04:14)
[2023-02-23] MEDS: OMEPRAZOLE 20 MG CAPSULE.DR GT SCH (05:36)
[2023-02-23] MEDS: BACLOFEN 10 MG TABLET GT SCH ×3 (05:36→21:46)
[2023-02-23] MEDS: ACIDOPHILUS/BULGARICUS CHEW TAB GT SCH ×2 (05:36→17:37)
[2023-02-23] MEDS: NUTRISOURCE FIBER 4 GM PACKET GT SCH ×2 (05:36→17:37)
[2023-02-23] MEDS: SIMETHICONE 80 MG TAB.CHEW GT SCH ×4 (05:37→17:37)
[2023-02-23 07:54] VITALS: TEMP 98.9
[2023-02-23] MEDS: DULOXETINE 20 MG CAPSULE.DR GT SCH (08:43)
[2023-02-23] MEDS: FINASTERIDE 5 MG TABLET GT SCH (08:43)
[2023-02-23] MEDS: ASCORBIC ACID 500 MG TABLET GT SCH (08:44)
[2023-02-23] MEDS: REMEDY ESSENTIAL ZINC PASTE 113 GM TP SCH ×2 (08:44→21:45)
[2023-02-23] MEDS: VITAMINS A AND D OINT 42 GM TUBE TP SCH (08:44)
[2023-02-23] MEDS: HYDROGEN PEROXIDE 3% 118 ML BOTTLE TP SCH ×2 (09:57→23:05)
[2023-02-23 20:00] VITALS: TEMP 98.3
[2023-02-23] MEDS: PROTEIN SUPPLEMENT (PROSTAT) 30 ML LIQUID GT SCH (21:45)
[2023-02-23] MEDS: MULTIVIT, IRON, MIN NO. 8, FA TABLET GT SCH (21:45)
[2023-02-24] MEDS: SIMETHICONE 80 MG TAB.CHEW GT SCH ×4 (00:48→18:06)
[2023-02-24] MEDS: ACIDOPHILUS/BULGARICUS CHEW TAB GT SCH ×2 (05:40→18:06)
[2023-02-24] MEDS: BACLOFEN 10 MG TABLET GT SCH ×3 (05:40→21:14)
[2023-02-24] MEDS: OMEPRAZOLE 20 MG CAPSULE.DR GT SCH (05:40)
[2023-02-24] MEDS: NUTRISOURCE FIBER 4 GM PACKET GT SCH ×2 (05:40→18:06)
[2023-02-24 07:43] VITALS: TEMP 97.7
[2023-02-24] MEDS: REMEDY ESSENTIAL ZINC PASTE 113 GM TP SCH ×2 (08:36→21:13)
[2023-02-24] MEDS: FINASTERIDE 5 MG TABLET GT SCH (08:36)
[2023-02-24] MEDS: VITAMINS A AND D OINT 42 GM TUBE TP SCH (08:36)
[2023-02-24] MEDS: DULOXETINE 20 MG CAPSULE.DR GT SCH (08:36)
[2023-02-24] MEDS: ASCORBIC ACID 500 MG TABLET GT SCH (08:36)
[2023-02-24] MEDS: HYDROGEN PEROXIDE 3% 118 ML BOTTLE TP SCH ×2 (08:56→21:17)
[2023-02-24 20:00] VITALS: TEMP 98.1
[2023-02-24] MEDS: PROTEIN SUPPLEMENT (PROSTAT) 30 ML LIQUID GT SCH (21:13)
[2023-02-24] MEDS: MULTIVIT, IRON, MIN NO. 8, FA TABLET GT SCH (21:13)
[2023-02-25] MEDS: OMEPRAZOLE 20 MG CAPSULE.DR GT SCH (05:55)
[2023-02-25] MEDS: SIMETHICONE 80 MG TAB.CHEW GT SCH ×4 (05:55→17:45)
[2023-02-25] MEDS: NUTRISOURCE FIBER 4 GM PACKET GT SCH ×2 (05:55→17:46)
[2023-02-25] MEDS: BACLOFEN 10 MG TABLET GT SCH ×3 (05:55→21:11)
[2023-02-25] MEDS: ACIDOPHILUS/BULGARICUS CHEW TAB GT SCH ×2 (05:55→17:44)
[2023-02-25 07:30] VITALS: TEMP 98.9
[2023-02-25] MEDS: DULOXETINE 20 MG CAPSULE.DR GT SCH (08:50)
[2023-02-25] MEDS: FINASTERIDE 5 MG TABLET GT SCH (08:51)
[2023-02-25] MEDS: REMEDY ESSENTIAL ZINC PASTE 113 GM TP SCH ×2 (08:52→21:11)
[2023-02-25] MEDS: VITAMINS A AND D OINT 42 GM TUBE TP SCH (08:52)
[2023-02-25] MEDS: ASCORBIC ACID 500 MG TABLET GT SCH (08:52)
[2023-02-25] MEDS: HYDROGEN PEROXIDE 3% 118 ML BOTTLE TP SCH ×2 (09:49→21:11)
[2023-02-25] MEDS: HARRIS FLUSH ENEMA PR PRN (11:21)
[2023-02-25 20:00] VITALS: TEMP 98.2
[2023-02-25] MEDS: PROTEIN SUPPLEMENT (PROSTAT) 30 ML LIQUID GT SCH (21:11)
[2023-02-25] MEDS: MULTIVIT, IRON, MIN NO. 8, FA TABLET GT SCH (21:14)
[2023-02-26] MEDS: ACIDOPHILUS/BULGARICUS CHEW TAB GT SCH ×2 (06:43→18:12)
[2023-02-26] MEDS: SIMETHICONE 80 MG TAB.CHEW GT SCH ×4 (06:44→18:12)
[2023-02-26] MEDS: BACLOFEN 10 MG TABLET GT SCH ×3 (06:44→21:47)
[2023-02-26] MEDS: NUTRISOURCE FIBER 4 GM PACKET GT SCH ×2 (06:44→18:12)
[2023-02-26] MEDS: OMEPRAZOLE 20 MG CAPSULE.DR GT SCH (06:45)
[2023-02-26 07:41] VITALS: TEMP 98.5
[2023-02-26] MEDS: DULOXETINE 20 MG CAPSULE.DR GT SCH (08:45)
[2023-02-26] MEDS: FINASTERIDE 5 MG TABLET GT SCH (08:45)
[2023-02-26] MEDS: ASCORBIC ACID 500 MG TABLET GT SCH (08:45)
[2023-02-26] MEDS: REMEDY ESSENTIAL ZINC PASTE 113 GM TP SCH ×2 (08:45→20:49)
[2023-02-26] MEDS: VITAMINS A AND D OINT 42 GM TUBE TP SCH (08:45)
[2023-02-26] MEDS: HYDROGEN PEROXIDE 3% 118 ML BOTTLE TP SCH ×2 (09:05→21:00)
[2023-02-26 20:00] VITALS: TEMP 98
[2023-02-26] MEDS: PROTEIN SUPPLEMENT (PROSTAT) 30 ML LIQUID GT SCH (20:48)
[2023-02-26] MEDS: MULTIVIT, IRON, MIN NO. 8, FA TABLET GT SCH (20:49)
[2023-02-27] MEDS: SIMETHICONE 80 MG TAB.CHEW GT SCH ×4 (00:41→17:01)
[2023-02-27] MEDS: BACLOFEN 10 MG TABLET GT SCH ×3 (06:02→21:45)
[2023-02-27] MEDS: OMEPRAZOLE 20 MG CAPSULE.DR GT SCH (06:02)
[2023-02-27] MEDS: NUTRISOURCE FIBER 4 GM PACKET GT SCH ×2 (06:02→17:01)
[2023-02-27] MEDS: ACIDOPHILUS/BULGARICUS CHEW TAB GT SCH ×2 (06:02→17:01)
[2023-02-27] MEDS: HYDROGEN PEROXIDE 3% 118 ML BOTTLE TP SCH ×2 (07:15→19:18)
[2023-02-27 07:20] VITALS: TEMP 98.7
[2023-02-27] MEDS: FINASTERIDE 5 MG TABLET GT SCH (09:11)
[2023-02-27] MEDS: REMEDY ESSENTIAL ZINC PASTE 113 GM TP SCH ×2 (09:11→20:48)
[2023-02-27] MEDS: VITAMINS A AND D OINT 42 GM TUBE TP SCH (09:11)
[2023-02-27] MEDS: DULOXETINE 20 MG CAPSULE.DR GT SCH (09:11)
[2023-02-27] MEDS: ASCORBIC ACID 500 MG TABLET GT SCH (09:11)
[2023-02-27 20:00] VITALS: TEMP 98.1
[2023-02-27] MEDS: MULTIVIT, IRON, MIN NO. 8, FA TABLET GT SCH (20:48)
[2023-02-27] MEDS: PROTEIN SUPPLEMENT (PROSTAT) 30 ML LIQUID GT SCH (20:48)
[2023-02-28] MEDS: SIMETHICONE 80 MG TAB.CHEW GT SCH ×5 (00:41→21:00)
[2023-02-28] MEDS: OMEPRAZOLE 20 MG CAPSULE.DR GT SCH (06:09)
[2023-02-28] MEDS: ACIDOPHILUS/BULGARICUS CHEW TAB GT SCH ×2 (06:09→17:30)
[2023-02-28] MEDS: NUTRISOURCE FIBER 4 GM PACKET GT SCH ×2 (06:09→17:30)
[2023-02-28] MEDS: BACLOFEN 10 MG TABLET GT SCH ×3 (06:09→22:15)
[2023-02-28 08:00] VITALS: TEMP 98.2
[2023-02-28] MEDS: ASCORBIC ACID 500 MG TABLET GT SCH (08:41)
[2023-02-28] MEDS: FINASTERIDE 5 MG TABLET GT SCH (08:41)
[2023-02-28] MEDS: REMEDY ESSENTIAL ZINC PASTE 113 GM TP SCH ×2 (08:41→21:00)
[2023-02-28] MEDS: DULOXETINE 20 MG CAPSULE.DR GT SCH (08:41)
[2023-02-28] MEDS: VITAMINS A AND D OINT 42 GM TUBE TP SCH (08:41)
[2023-02-28] MEDS: HYDROGEN PEROXIDE 3% 118 ML BOTTLE TP SCH ×2 (08:43→20:57)
[2023-02-28 20:00] VITALS: TEMP 98.1
[2023-02-28] MEDS: PROTEIN SUPPLEMENT (PROSTAT) 30 ML LIQUID GT SCH (21:00)
[2023-02-28] MEDS: MULTIVIT, IRON, MIN NO. 8, FA TABLET GT SCH (21:00)
[2023-03-01] MEDS: JEVITY 1.2 1000 ML LIQUID GT PRN (01:18)
[2023-03-01] MEDS: NUTRISOURCE FIBER 4 GM PACKET GT SCH ×2 (06:16→18:37)
[2023-03-01] MEDS: SIMETHICONE 80 MG TAB.CHEW GT SCH ×3 (06:18→18:37)
[2023-03-01] MEDS: BACLOFEN 10 MG TABLET GT SCH ×3 (06:18→21:06)
[2023-03-01] MEDS: OMEPRAZOLE 20 MG CAPSULE.DR GT SCH (06:19)
[2023-03-01] MEDS: ACIDOPHILUS/BULGARICUS CHEW TAB GT SCH ×2 (06:19→18:37)
[2023-03-01] MEDS: HYDROGEN PEROXIDE 3% 118 ML BOTTLE TP SCH ×2 (07:22→21:00)
[2023-03-01 08:00] VITALS: TEMP 98
[2023-03-01] MEDS: DULOXETINE 20 MG CAPSULE.DR GT SCH (08:40)
[2023-03-01] MEDS: FINASTERIDE 5 MG TABLET GT SCH (08:40)
[2023-03-01] MEDS: ASCORBIC ACID 500 MG TABLET GT SCH (08:40)
[2023-03-01] MEDS: REMEDY ESSENTIAL ZINC PASTE 113 GM TP SCH ×2 (08:40→20:52)
[2023-03-01] MEDS: VITAMINS A AND D OINT 42 GM TUBE TP SCH (08:41)
[2023-03-01 20:00] VITALS: TEMP 98
[2023-03-01] MEDS: PROTEIN SUPPLEMENT (PROSTAT) 30 ML LIQUID GT SCH (20:52)
[2023-03-01] MEDS: MULTIVIT, IRON, MIN NO. 8, FA TABLET GT SCH (20:52)
[2023-03-02] MEDS: SIMETHICONE 80 MG TAB.CHEW GT SCH ×4 (00:45→17:31)
[2023-03-02] MEDS: BACLOFEN 10 MG TABLET GT SCH ×3 (05:34→21:55)
[2023-03-02] MEDS: OMEPRAZOLE 20 MG CAPSULE.DR GT SCH (05:34)
[2023-03-02] MEDS: NUTRISOURCE FIBER 4 GM PACKET GT SCH ×2 (05:34→17:31)
[2023-03-02] MEDS: ACIDOPHILUS/BULGARICUS CHEW TAB GT SCH ×2 (05:34→17:31)
[2023-03-02 07:25] VITALS: TEMP 98.8
[2023-03-02] MEDS: HYDROGEN PEROXIDE 3% 118 ML BOTTLE TP SCH ×2 (07:56→19:02)
[2023-03-02] MEDS: ASCORBIC ACID 500 MG TABLET GT SCH (08:43)
[2023-03-02] MEDS: FINASTERIDE 5 MG TABLET GT SCH (08:43)
[2023-03-02] MEDS: DULOXETINE 20 MG CAPSULE.DR GT SCH (08:43)
[2023-03-02] MEDS: REMEDY ESSENTIAL ZINC PASTE 113 GM TP SCH ×2 (08:44→20:33)
[2023-03-02] MEDS: VITAMINS A AND D OINT 42 GM TUBE TP SCH (08:44)
[2023-03-02] MEDS: JEVITY 1.2 1000 ML LIQUID GT PRN (14:03)
[2023-03-02] MEDS: MULTIVIT, IRON, MIN NO. 8, FA TABLET GT SCH (20:33)
[2023-03-02] MEDS: PROTEIN SUPPLEMENT (PROSTAT) 30 ML LIQUID GT SCH (20:33)
[2023-03-02 20:49] VITALS: TEMP 97.9
[2023-03-03] MEDS: SIMETHICONE 80 MG TAB.CHEW GT SCH ×5 (00:39→23:34)
[2023-03-03] MEDS: BACLOFEN 10 MG TABLET GT SCH ×3 (05:33→22:02)
[2023-03-03] MEDS: NUTRISOURCE FIBER 4 GM PACKET GT SCH ×2 (05:33→17:50)
[2023-03-03] MEDS: ACIDOPHILUS/BULGARICUS CHEW TAB GT SCH ×2 (05:33→17:49)
[2023-03-03] MEDS: OMEPRAZOLE 20 MG CAPSULE.DR GT SCH (05:33)
[2023-03-03 07:59] VITALS: TEMP 98.8
[2023-03-03] MEDS: DULOXETINE 20 MG CAPSULE.DR GT SCH (08:28)
[2023-03-03] MEDS: FINASTERIDE 5 MG TABLET GT SCH (08:29)
[2023-03-03] MEDS: ASCORBIC ACID 500 MG TABLET GT SCH (08:29)
[2023-03-03] MEDS: REMEDY ESSENTIAL ZINC PASTE 113 GM TP SCH ×2 (08:30→20:36)
[2023-03-03] MEDS: VITAMINS A AND D OINT 42 GM TUBE TP SCH (08:30)
[2023-03-03] MEDS: JEVITY 1.2 1000 ML LIQUID GT PRN (08:31)
[2023-03-03] MEDS: HYDROGEN PEROXIDE 3% 118 ML BOTTLE TP SCH ×2 (09:00→19:07)
[2023-03-03] MEDS: MULTIVIT, IRON, MIN NO. 8, FA TABLET GT SCH (20:36)
[2023-03-03] MEDS: PROTEIN SUPPLEMENT (PROSTAT) 30 ML LIQUID GT SCH (20:36)
[2023-03-03 21:45] VITALS: TEMP 98.8
[2023-03-04] MEDS: JEVITY 1.2 1000 ML LIQUID GT PRN (03:41)
[2023-03-04] MEDS: OMEPRAZOLE 20 MG CAPSULE.DR GT SCH (05:40)
[2023-03-04] MEDS: ACIDOPHILUS/BULGARICUS CHEW TAB GT SCH ×2 (05:40→17:20)
[2023-03-04] MEDS: SIMETHICONE 80 MG TAB.CHEW GT SCH ×3 (05:40→17:21)
[2023-03-04] MEDS: NUTRISOURCE FIBER 4 GM PACKET GT SCH ×2 (05:40→17:21)
[2023-03-04] MEDS: BACLOFEN 10 MG TABLET GT SCH ×3 (05:40→21:47)
[2023-03-04 07:36] VITALS: TEMP 98.4
[2023-03-04] MEDS: DULOXETINE 20 MG CAPSULE.DR GT SCH (09:00)
[2023-03-04] MEDS: ASCORBIC ACID 500 MG TABLET GT SCH (09:00)
[2023-03-04] MEDS: VITAMINS A AND D OINT 42 GM TUBE TP SCH (09:00)
[2023-03-04] MEDS: FINASTERIDE 5 MG TABLET GT SCH (09:00)
[2023-03-04] MEDS: REMEDY ESSENTIAL ZINC PASTE 113 GM TP SCH ×2 (09:00→20:21)
[2023-03-04] MEDS: HYDROGEN PEROXIDE 3% 118 ML BOTTLE TP SCH ×2 (09:07→20:55)
[2023-03-04 19:59] VITALS: TEMP 98.2
[2023-03-04] MEDS: PROTEIN SUPPLEMENT (PROSTAT) 30 ML LIQUID GT SCH (20:21)
[2023-03-04] MEDS: MULTIVIT, IRON, MIN NO. 8, FA TABLET GT SCH (20:21)
[2023-03-05] MEDS: JEVITY 1.2 1000 ML LIQUID GT PRN (00:16)
[2023-03-05] MEDS: SIMETHICONE 80 MG TAB.CHEW GT SCH ×4 (00:16→17:23)
[2023-03-05] MEDS: BACLOFEN 10 MG TABLET GT SCH ×3 (05:35→22:04)
[2023-03-05] MEDS: NUTRISOURCE FIBER 4 GM PACKET GT SCH ×2 (05:35→17:24)
[2023-03-05] MEDS: OMEPRAZOLE 20 MG CAPSULE.DR GT SCH (05:35)
[2023-03-05] MEDS: ACIDOPHILUS/BULGARICUS CHEW TAB GT SCH ×2 (05:35→17:23)
[2023-03-05 07:21] VITALS: TEMP 99.1
[2023-03-05] MEDS: HYDROGEN PEROXIDE 3% 118 ML BOTTLE TP SCH ×2 (09:01→21:00)
[2023-03-05] MEDS: FINASTERIDE 5 MG TABLET GT SCH (09:33)
[2023-03-05] MEDS: DULOXETINE 20 MG CAPSULE.DR GT SCH (09:33)
[2023-03-05] MEDS: REMEDY ESSENTIAL ZINC PASTE 113 GM TP SCH ×2 (09:33→20:44)
[2023-03-05] MEDS: VITAMINS A AND D OINT 42 GM TUBE TP SCH (09:33)
[2023-03-05] MEDS: ASCORBIC ACID 500 MG TABLET GT SCH (09:33)
[2023-03-05 19:52] VITALS: TEMP 98.4
[2023-03-05] MEDS: MULTIVIT, IRON, MIN NO. 8, FA TABLET GT SCH (20:43)
[2023-03-05] MEDS: PROTEIN SUPPLEMENT (PROSTAT) 30 ML LIQUID GT SCH (20:43)
[2023-03-06] MEDS: SIMETHICONE 80 MG TAB.CHEW GT SCH ×4 (00:35→17:13)
[2023-03-06] MEDS: JEVITY 1.2 1000 ML LIQUID GT PRN (00:36)
[2023-03-06] MEDS: ACIDOPHILUS/BULGARICUS CHEW TAB GT SCH ×2 (05:32→17:13)
[2023-03-06] MEDS: OMEPRAZOLE 20 MG CAPSULE.DR GT SCH (05:32)
[2023-03-06] MEDS: BACLOFEN 10 MG TABLET GT SCH ×3 (05:32→21:53)
[2023-03-06] MEDS: NUTRISOURCE FIBER 4 GM PACKET GT SCH ×2 (05:32→17:13)
[2023-03-06] MEDS: HYDROGEN PEROXIDE 3% 118 ML BOTTLE TP SCH ×2 (07:42→21:53)
[2023-03-06 08:04] VITALS: TEMP 98.3
[2023-03-06] MEDS: FINASTERIDE 5 MG TABLET GT SCH (08:44)
[2023-03-06] MEDS: REMEDY ESSENTIAL ZINC PASTE 113 GM TP SCH ×2 (08:44→21:53)
[2023-03-06] MEDS: VITAMINS A AND D OINT 42 GM TUBE TP SCH (08:44)
[2023-03-06] MEDS: ASCORBIC ACID 500 MG TABLET GT SCH (08:44)
[2023-03-06] MEDS: DULOXETINE 20 MG CAPSULE.DR GT SCH (08:44)
[2023-03-06] MEDS: HARRIS FLUSH ENEMA PR PRN (15:18)
[2023-03-06 20:01] VITALS: TEMP 98.3
[2023-03-06] MEDS: MULTIVIT, IRON, MIN NO. 8, FA TABLET GT SCH (21:52)
[2023-03-06] MEDS: PROTEIN SUPPLEMENT (PROSTAT) 30 ML LIQUID GT SCH (21:52)
[2023-03-07] MEDS: BACLOFEN 10 MG TABLET GT SCH ×3 (06:30→22:00)
[2023-03-07] MEDS: ACIDOPHILUS/BULGARICUS CHEW TAB GT SCH ×2 (06:30→17:26)
[2023-03-07] MEDS: SIMETHICONE 80 MG TAB.CHEW GT SCH ×4 (06:31→17:26)
[2023-03-07] MEDS: OMEPRAZOLE 20 MG CAPSULE.DR GT SCH (06:31)
[2023-03-07] MEDS: NUTRISOURCE FIBER 4 GM PACKET GT SCH ×2 (06:31→17:26)
[2023-03-07] MEDS: JEVITY 1.2 1000 ML LIQUID GT PRN (07:17)
[2023-03-07 07:33] VITALS: TEMP 98.8
[2023-03-07] MEDS: HYDROGEN PEROXIDE 3% 118 ML BOTTLE TP SCH ×2 (08:31→20:28)
[2023-03-07] MEDS: VITAMINS A AND D OINT 42 GM TUBE TP SCH (08:50)
[2023-03-07] MEDS: ASCORBIC ACID 500 MG TABLET GT SCH (08:50)
[2023-03-07] MEDS: DULOXETINE 20 MG CAPSULE.DR GT SCH (08:50)
[2023-03-07] MEDS: REMEDY ESSENTIAL ZINC PASTE 113 GM TP SCH ×2 (08:50→20:43)
[2023-03-07] MEDS: FINASTERIDE 5 MG TABLET GT SCH (08:50)
[2023-03-07 19:59] VITALS: TEMP 98.6
[2023-03-07] MEDS: PROTEIN SUPPLEMENT (PROSTAT) 30 ML LIQUID GT SCH (20:43)
[2023-03-07] MEDS: MULTIVIT, IRON, MIN NO. 8, FA TABLET GT SCH (20:43)
[2023-03-08] MEDS: SIMETHICONE 80 MG TAB.CHEW GT SCH ×5 (00:23→22:55)
[2023-03-08] MEDS: NUTRISOURCE FIBER 4 GM PACKET GT SCH ×2 (05:36→17:34)
[2023-03-08] MEDS: BACLOFEN 10 MG TABLET GT SCH ×3 (05:36→22:55)
[2023-03-08] MEDS: OMEPRAZOLE 20 MG CAPSULE.DR GT SCH (05:36)
[2023-03-08] MEDS: ACIDOPHILUS/BULGARICUS CHEW TAB GT SCH ×2 (05:36→17:34)
[2023-03-08] MEDS: HYDROGEN PEROXIDE 3% 118 ML BOTTLE TP SCH ×2 (07:28→21:00)
[2023-03-08 07:54] VITALS: TEMP 99.3
[2023-03-08] MEDS: ASCORBIC ACID 500 MG TABLET GT SCH (08:50)
[2023-03-08] MEDS: FINASTERIDE 5 MG TABLET GT SCH (08:50)
[2023-03-08] MEDS: VITAMINS A AND D OINT 42 GM TUBE TP SCH (08:50)
[2023-03-08] MEDS: DULOXETINE 20 MG CAPSULE.DR GT SCH (08:50)
[2023-03-08] MEDS: REMEDY ESSENTIAL ZINC PASTE 113 GM TP SCH ×2 (08:50→21:00)
[2023-03-08 20:52] VITALS: TEMP 97.8
[2023-03-08] MEDS: PROTEIN SUPPLEMENT (PROSTAT) 30 ML LIQUID GT SCH (21:00)
[2023-03-08] MEDS: MULTIVIT, IRON, MIN NO. 8, FA TABLET GT SCH (21:00)
[2023-03-09] MEDS: ACIDOPHILUS/BULGARICUS CHEW TAB GT SCH ×2 (06:56→18:23)
[2023-03-09] MEDS: SIMETHICONE 80 MG TAB.CHEW GT SCH ×3 (06:57→18:23)
[2023-03-09] MEDS: NUTRISOURCE FIBER 4 GM PACKET GT SCH ×2 (06:57→18:23)
[2023-03-09] MEDS: OMEPRAZOLE 20 MG CAPSULE.DR GT SCH (06:58)
[2023-03-09] MEDS: BACLOFEN 10 MG TABLET GT SCH ×3 (06:58→22:00)
[2023-03-09 07:47] VITALS: TEMP 99.1
[2023-03-09] MEDS: VITAMINS A AND D OINT 42 GM TUBE TP SCH (09:22)
[2023-03-09] MEDS: ASCORBIC ACID 500 MG TABLET GT SCH (09:22)
[2023-03-09] MEDS: REMEDY ESSENTIAL ZINC PASTE 113 GM TP SCH ×2 (09:22→20:30)
[2023-03-09] MEDS: FINASTERIDE 5 MG TABLET GT SCH (09:22)
[2023-03-09] MEDS: DULOXETINE 20 MG CAPSULE.DR GT SCH (09:22)
[2023-03-09] MEDS: HYDROGEN PEROXIDE 3% 118 ML BOTTLE TP SCH ×2 (10:16→21:01)
[2023-03-09] MEDS: JEVITY 1.2 1000 ML LIQUID GT PRN (13:08)
[2023-03-09] MEDS: PROTEIN SUPPLEMENT (PROSTAT) 30 ML LIQUID GT SCH (20:29)
[2023-03-09] MEDS: MULTIVIT, IRON, MIN NO. 8, FA TABLET GT SCH (20:30)
[2023-03-09 21:00] VITALS: TEMP 98.2
[2023-03-10] MEDS: BACLOFEN 10 MG TABLET GT SCH ×3 (06:07→21:51)
[2023-03-10] MEDS: NUTRISOURCE FIBER 4 GM PACKET GT SCH ×2 (06:07→17:05)
[2023-03-10] MEDS: OMEPRAZOLE 20 MG CAPSULE.DR GT SCH (06:07)
[2023-03-10] MEDS: SIMETHICONE 80 MG TAB.CHEW GT SCH ×4 (06:07→17:05)
[2023-03-10] MEDS: ACIDOPHILUS/BULGARICUS CHEW TAB GT SCH ×2 (06:07→17:05)
[2023-03-10] MEDS: HYDROGEN PEROXIDE 3% 118 ML BOTTLE TP SCH ×2 (07:29→21:00)
[2023-03-10 08:00] VITALS: BP 134/81; TEMP 98.6; O2SAT 100
[2023-03-10] MEDS: DULOXETINE 20 MG CAPSULE.DR GT SCH (08:46)
[2023-03-10] MEDS: FINASTERIDE 5 MG TABLET GT SCH (08:47)
[2023-03-10] MEDS: VITAMINS A AND D OINT 42 GM TUBE TP SCH (08:51)
[2023-03-10] MEDS: ASCORBIC ACID 500 MG TABLET GT SCH (08:51)
[2023-03-10] MEDS: REMEDY ESSENTIAL ZINC PASTE 113 GM TP SCH ×2 (08:51→21:00)
[2023-03-10] MEDS: PROTEIN SUPPLEMENT (PROSTAT) 30 ML LIQUID GT SCH (21:00)
[2023-03-10] MEDS: MULTIVIT, IRON, MIN NO. 8, FA TABLET GT SCH (21:00)
[2023-03-10 21:48] VITALS: TEMP 98.9
[2023-03-11] MEDS: ACIDOPHILUS/BULGARICUS CHEW TAB GT SCH ×2 (06:00→17:16)
[2023-03-11] MEDS: BACLOFEN 10 MG TABLET GT SCH ×3 (06:00→22:18)
[2023-03-11] MEDS: OMEPRAZOLE 20 MG CAPSULE.DR GT SCH (06:00)
[2023-03-11] MEDS: SIMETHICONE 80 MG TAB.CHEW GT SCH ×4 (06:00→17:16)
[2023-03-11] MEDS: NUTRISOURCE FIBER 4 GM PACKET GT SCH ×2 (06:00→17:16)
[2023-03-11 07:47] VITALS: TEMP 98.6
[2023-03-11] MEDS: FINASTERIDE 5 MG TABLET GT SCH (08:43)
[2023-03-11] MEDS: REMEDY ESSENTIAL ZINC PASTE 113 GM TP SCH ×2 (08:43→20:01)
[2023-03-11] MEDS: ASCORBIC ACID 500 MG TABLET GT SCH (08:43)
[2023-03-11] MEDS: VITAMINS A AND D OINT 42 GM TUBE TP SCH (08:43)
[2023-03-11] MEDS: DULOXETINE 20 MG CAPSULE.DR GT SCH (08:43)
[2023-03-11] MEDS: HYDROGEN PEROXIDE 3% 118 ML BOTTLE TP SCH ×2 (09:00→20:58)
[2023-03-11] MEDS: PROTEIN SUPPLEMENT (PROSTAT) 30 ML LIQUID GT SCH (20:01)
[2023-03-11] MEDS: MULTIVIT, IRON, MIN NO. 8, FA TABLET GT SCH (20:01)
[2023-03-11 20:12] VITALS: TEMP 98.5
[2023-03-11] MEDS: JEVITY 1.2 1000 ML LIQUID GT PRN (20:20)
[2023-03-12] MEDS: SIMETHICONE 80 MG TAB.CHEW GT SCH ×4 (00:10→17:43)
[2023-03-12] MEDS: BACLOFEN 10 MG TABLET GT SCH ×3 (05:39→22:00)
[2023-03-12] MEDS: NUTRISOURCE FIBER 4 GM PACKET GT SCH ×2 (05:39→17:44)
[2023-03-12] MEDS: ACIDOPHILUS/BULGARICUS CHEW TAB GT SCH ×2 (05:39→17:43)
[2023-03-12] MEDS: OMEPRAZOLE 20 MG CAPSULE.DR GT SCH (05:39)
[2023-03-12 07:46] VITALS: TEMP 99.6
[2023-03-12] MEDS: FINASTERIDE 5 MG TABLET GT SCH (08:25)
[2023-03-12] MEDS: DULOXETINE 20 MG CAPSULE.DR GT SCH (08:25)
[2023-03-12] MEDS: ASCORBIC ACID 500 MG TABLET GT SCH (08:25)
[2023-03-12] MEDS: HYDROGEN PEROXIDE 3% 118 ML BOTTLE TP SCH ×2 (09:00→21:21)
[2023-03-12] MEDS: VITAMINS A AND D OINT 42 GM TUBE TP SCH (09:59)
[2023-03-12] MEDS: REMEDY ESSENTIAL ZINC PASTE 113 GM TP SCH ×2 (09:59→20:27)
[2023-03-12] MEDS: JEVITY 1.2 1000 ML LIQUID GT PRN (14:03)
[2023-03-12 20:12] VITALS: TEMP 98
[2023-03-12] MEDS: MULTIVIT, IRON, MIN NO. 8, FA TABLET GT SCH (20:26)
[2023-03-12] MEDS: PROTEIN SUPPLEMENT (PROSTAT) 30 ML LIQUID GT SCH (20:26)
[2023-03-13] MEDS: HARRIS FLUSH ENEMA PR PRN (05:00)
[2023-03-13] MEDS: BACLOFEN 10 MG TABLET GT SCH ×3 (05:41→22:00)
[2023-03-13] MEDS: ACIDOPHILUS/BULGARICUS CHEW TAB GT SCH ×2 (05:41→17:09)
[2023-03-13] MEDS: NUTRISOURCE FIBER 4 GM PACKET GT SCH ×2 (05:42→17:09)
[2023-03-13] MEDS: OMEPRAZOLE 20 MG CAPSULE.DR GT SCH (05:42)
[2023-03-13] MEDS: SIMETHICONE 80 MG TAB.CHEW GT SCH ×4 (06:12→17:09)
[2023-03-13] MEDS: JEVITY 1.2 1000 ML LIQUID GT PRN (06:12)
[2023-03-13 07:24] VITALS: TEMP 97.6
[2023-03-13] MEDS: HYDROGEN PEROXIDE 3% 118 ML BOTTLE TP SCH ×2 (09:00→21:34)
[2023-03-13] MEDS: DULOXETINE 20 MG CAPSULE.DR GT SCH (09:02)
[2023-03-13] MEDS: ASCORBIC ACID 500 MG TABLET GT SCH (09:02)
[2023-03-13] MEDS: FINASTERIDE 5 MG TABLET GT SCH (09:02)
[2023-03-13] MEDS: REMEDY ESSENTIAL ZINC PASTE 113 GM TP SCH ×2 (09:03→20:24)
[2023-03-13] MEDS: VITAMINS A AND D OINT 42 GM TUBE TP SCH (09:03)
[2023-03-13 19:56] VITALS: TEMP 98.4
[2023-03-13] MEDS: PROTEIN SUPPLEMENT (PROSTAT) 30 ML LIQUID GT SCH (20:23)
[2023-03-13] MEDS: MULTIVIT, IRON, MIN NO. 8, FA TABLET GT SCH (20:23)
[2023-03-14] MEDS: JEVITY 1.2 1000 ML LIQUID GT PRN (01:00)
[2023-03-14] MEDS: SIMETHICONE 80 MG TAB.CHEW GT SCH ×4 (06:07→17:43)
[2023-03-14] MEDS: ACIDOPHILUS/BULGARICUS CHEW TAB GT SCH ×2 (06:07→17:43)
[2023-03-14] MEDS: BACLOFEN 10 MG TABLET GT SCH ×3 (06:07→22:33)
[2023-03-14] MEDS: NUTRISOURCE FIBER 4 GM PACKET GT SCH ×2 (06:07→17:43)
[2023-03-14] MEDS: OMEPRAZOLE 20 MG CAPSULE.DR GT SCH (06:07)
[2023-03-14 07:03] LABS: BASOPHILS % (AUTO) 0.5 % (0.0-2.0); DIFFERENTIAL COMMENT 1; EOSINOPHILS # (AUTO) 0.2 K/uL (0.0-0.7); EOSINOPHILS % (AUTO) 3.3 % (0.0-7.0); HEMOGLOBIN 12.6 g/dL (12.5-16.3); LYMPHOCYTES # (AUTO) 1.7 K/uL (0.8-4.8); LYMPHOCYTES % (AUTO) 30.7 % (20.5-51.5); MEAN CORPUSCULAR HEMOGLOBIN 28.2 uug (23.8-33.4); MEAN CORPUSCULAR HGB CONC 33 g/dL (32.5-36.3); MEAN CORPUSCULAR VOLUME 85.1 fL (73.0-96.2); MONOCYTES # (AUTO) 0.4 K/uL (0.1-1.30); MONOCYTES % (AUTO) 8.1 % (0.0-11.0); NEUTROPHILS # (AUTO) 3.1 K/uL (1.8-8.9); NEUTROPHILS % (AUTO) 57.4 % (38.5-71.5); PLATELET COUNT (AUTO) 239 K/uL (152-348); RED BLOOD CELL COUNT(AUTO) 4.46 MIL/uL (4.06-5.63); RED CELL DISTRIBUTION WIDTH 13.9 % (12.1-16.2); WHITE BLOOD COUNT (AUTO) 5.5 K/uL (3.6-10.2)
[2023-03-14 07:26] VITALS: TEMP 98.3
[2023-03-14 08:14] LABS: CARBON DIOXIDE 26 mmol/L (21-32); CHLORIDE 102 mmol/L (98-107); CREATININE 0.6 mg/dL (0.6-1.3); GLUCOSE 111 mg/dL (74-106); MAGNESIUM 2.1 mg/dL (1.8-2.4); PHOSPHOROUS 3.6 mg/dL (2.5-4.9); POTASSIUM 4.3 mmol/L (3.5-5.1); SODIUM SERUM 136 mmol/L (136-145); UREA NITROGEN, BLOOD 31 mg/dL (7-18)
[2023-03-14] MEDS: FINASTERIDE 5 MG TABLET GT SCH (08:44)
[2023-03-14] MEDS: VITAMINS A AND D OINT 42 GM TUBE TP SCH (08:44)
[2023-03-14] MEDS: ASCORBIC ACID 500 MG TABLET GT SCH (08:44)
[2023-03-14] MEDS: REMEDY ESSENTIAL ZINC PASTE 113 GM TP SCH ×2 (08:44→20:18)
[2023-03-14] MEDS: DULOXETINE 20 MG CAPSULE.DR GT SCH (08:44)
[2023-03-14] MEDS: HYDROGEN PEROXIDE 3% 118 ML BOTTLE TP SCH ×2 (09:03→20:46)
[2023-03-14 09:25] VITALS: O2SAT 99
[2023-03-14 20:13] VITALS: TEMP 98
[2023-03-14] MEDS: MULTIVIT, IRON, MIN NO. 8, FA TABLET GT SCH (20:18)
[2023-03-14] MEDS: PROTEIN SUPPLEMENT (PROSTAT) 30 ML LIQUID GT SCH (20:18)
[2023-03-14] MEDS: HARRIS FLUSH ENEMA PR PRN (22:00)
[2023-03-15] MEDS: BACLOFEN 10 MG TABLET GT SCH ×3 (05:47→22:14)
[2023-03-15] MEDS: OMEPRAZOLE 20 MG CAPSULE.DR GT SCH (05:47)
[2023-03-15] MEDS: ACIDOPHILUS/BULGARICUS CHEW TAB GT SCH ×2 (05:47→18:14)
[2023-03-15] MEDS: NUTRISOURCE FIBER 4 GM PACKET GT SCH ×2 (05:47→18:14)
[2023-03-15] MEDS: SIMETHICONE 80 MG TAB.CHEW GT SCH ×4 (05:47→18:14)
[2023-03-15] MEDS: HYDROGEN PEROXIDE 3% 118 ML BOTTLE TP SCH ×2 (07:45→19:23)
[2023-03-15] MEDS: VITAMINS A AND D OINT 42 GM TUBE TP SCH (08:46)
[2023-03-15] MEDS: REMEDY ESSENTIAL ZINC PASTE 113 GM TP SCH ×2 (08:46→20:24)
[2023-03-15] MEDS: FINASTERIDE 5 MG TABLET GT SCH (08:46)
[2023-03-15] MEDS: ASCORBIC ACID 500 MG TABLET GT SCH (08:46)
[2023-03-15] MEDS: DULOXETINE 20 MG CAPSULE.DR GT SCH (08:46)
[2023-03-15 20:01] VITALS: TEMP 98.8
[2023-03-15] MEDS: PROTEIN SUPPLEMENT (PROSTAT) 30 ML LIQUID GT SCH (20:23)
[2023-03-15] MEDS: MULTIVIT, IRON, MIN NO. 8, FA TABLET GT SCH (20:24)
[2023-03-16] MEDS: JEVITY 1.2 1000 ML LIQUID GT PRN ×2 (04:35→22:42)
[2023-03-16] MEDS: SIMETHICONE 80 MG TAB.CHEW GT SCH ×4 (06:27→17:35)
[2023-03-16] MEDS: BACLOFEN 10 MG TABLET GT SCH ×3 (06:27→22:33)
[2023-03-16] MEDS: ACIDOPHILUS/BULGARICUS CHEW TAB GT SCH ×2 (06:27→17:35)
[2023-03-16] MEDS: NUTRISOURCE FIBER 4 GM PACKET GT SCH ×2 (06:28→17:35)
[2023-03-16] MEDS: OMEPRAZOLE 20 MG CAPSULE.DR GT SCH (06:28)
[2023-03-16 07:47] VITALS: TEMP 98.7
[2023-03-16] MEDS: HYDROGEN PEROXIDE 3% 118 ML BOTTLE TP SCH ×2 (09:45→19:17)
[2023-03-16] MEDS: REMEDY ESSENTIAL ZINC PASTE 113 GM TP SCH ×2 (09:45→20:12)
[2023-03-16] MEDS: DULOXETINE 20 MG CAPSULE.DR GT SCH (09:45)
[2023-03-16] MEDS: ASCORBIC ACID 500 MG TABLET GT SCH (09:45)
[2023-03-16] MEDS: FINASTERIDE 5 MG TABLET GT SCH (09:45)
[2023-03-16] MEDS: VITAMINS A AND D OINT 42 GM TUBE TP SCH (09:45)
[2023-03-16] MEDS: PROTEIN SUPPLEMENT (PROSTAT) 30 ML LIQUID GT SCH (20:12)
[2023-03-16] MEDS: MULTIVIT, IRON, MIN NO. 8, FA TABLET GT SCH (20:12)
[2023-03-16 20:16] VITALS: TEMP 99
[2023-03-17] MEDS: HARRIS FLUSH ENEMA PR PRN (03:00)
[2023-03-17] MEDS: NUTRISOURCE FIBER 4 GM PACKET GT SCH ×2 (06:09→17:37)
[2023-03-17] MEDS: SIMETHICONE 80 MG TAB.CHEW GT SCH ×5 (06:09→23:46)
[2023-03-17] MEDS: BACLOFEN 10 MG TABLET GT SCH ×3 (06:09→21:34)
[2023-03-17] MEDS: ACIDOPHILUS/BULGARICUS CHEW TAB GT SCH ×2 (06:09→17:37)
[2023-03-17] MEDS: OMEPRAZOLE 20 MG CAPSULE.DR GT SCH (06:09)
[2023-03-17 07:43] VITALS: TEMP 98.5
[2023-03-17] MEDS: HYDROGEN PEROXIDE 3% 118 ML BOTTLE TP SCH ×2 (08:57→21:21)
[2023-03-17] MEDS: FINASTERIDE 5 MG TABLET GT SCH (09:28)
[2023-03-17] MEDS: DULOXETINE 20 MG CAPSULE.DR GT SCH (09:28)
[2023-03-17] MEDS: ASCORBIC ACID 500 MG TABLET GT SCH (09:28)
[2023-03-17] MEDS: REMEDY ESSENTIAL ZINC PASTE 113 GM TP SCH ×2 (09:28→21:32)
[2023-03-17] MEDS: VITAMINS A AND D OINT 42 GM TUBE TP SCH (09:28)
[2023-03-17 20:34] VITALS: TEMP 97.8
[2023-03-17] MEDS: PROTEIN SUPPLEMENT (PROSTAT) 30 ML LIQUID GT SCH (21:32)
[2023-03-17] MEDS: MULTIVIT, IRON, MIN NO. 8, FA TABLET GT SCH (21:32)
[2023-03-18] MEDS: SIMETHICONE 80 MG TAB.CHEW GT SCH ×4 (05:51→23:47)
[2023-03-18] MEDS: OMEPRAZOLE 20 MG CAPSULE.DR GT SCH (05:51)
[2023-03-18] MEDS: ACIDOPHILUS/BULGARICUS CHEW TAB GT SCH ×2 (05:51→17:05)
[2023-03-18] MEDS: NUTRISOURCE FIBER 4 GM PACKET GT SCH ×2 (05:51→17:05)
[2023-03-18] MEDS: BACLOFEN 10 MG TABLET GT SCH ×3 (05:51→22:00)
[2023-03-18 07:34] VITALS: TEMP 99.3
[2023-03-18] MEDS: FINASTERIDE 5 MG TABLET GT SCH (08:53)
[2023-03-18] MEDS: DULOXETINE 20 MG CAPSULE.DR GT SCH (08:53)
[2023-03-18] MEDS: ASCORBIC ACID 500 MG TABLET GT SCH (08:53)
[2023-03-18] MEDS: VITAMINS A AND D OINT 42 GM TUBE TP SCH (08:53)
[2023-03-18] MEDS: REMEDY ESSENTIAL ZINC PASTE 113 GM TP SCH ×2 (08:53→21:00)
[2023-03-18] MEDS: HYDROGEN PEROXIDE 3% 118 ML BOTTLE TP SCH ×2 (09:49→21:00)
[2023-03-18 20:24] VITALS: TEMP 99.2
[2023-03-18] MEDS: PROTEIN SUPPLEMENT (PROSTAT) 30 ML LIQUID GT SCH (21:00)
[2023-03-18] MEDS: MULTIVIT, IRON, MIN NO. 8, FA TABLET GT SCH (21:00)
[2023-03-19] MEDS: ACIDOPHILUS/BULGARICUS CHEW TAB GT SCH ×2 (06:48→18:25)
[2023-03-19] MEDS: NUTRISOURCE FIBER 4 GM PACKET GT SCH ×2 (06:51→18:25)
[2023-03-19] MEDS: SIMETHICONE 80 MG TAB.CHEW GT SCH ×3 (06:51→18:25)
[2023-03-19] MEDS: OMEPRAZOLE 20 MG CAPSULE.DR GT SCH (06:52)
[2023-03-19] MEDS: BACLOFEN 10 MG TABLET GT SCH ×3 (06:55→22:21)
[2023-03-19 07:26] VITALS: TEMP 99
[2023-03-19] MEDS: VITAMINS A AND D OINT 42 GM TUBE TP SCH (09:00)
[2023-03-19] MEDS: REMEDY ESSENTIAL ZINC PASTE 113 GM TP SCH ×2 (09:00→20:37)
[2023-03-19] MEDS: ASCORBIC ACID 500 MG TABLET GT SCH (09:00)
[2023-03-19] MEDS: DULOXETINE 20 MG CAPSULE.DR GT SCH (09:00)
[2023-03-19] MEDS: FINASTERIDE 5 MG TABLET GT SCH (09:00)
[2023-03-19] MEDS: HYDROGEN PEROXIDE 3% 118 ML BOTTLE TP SCH ×2 (09:05→21:00)
[2023-03-19 19:52] VITALS: TEMP 98.4
[2023-03-19] MEDS: PROTEIN SUPPLEMENT (PROSTAT) 30 ML LIQUID GT SCH (20:37)
[2023-03-19] MEDS: MULTIVIT, IRON, MIN NO. 8, FA TABLET GT SCH (20:37)
[2023-03-20] MEDS: SIMETHICONE 80 MG TAB.CHEW GT SCH ×5 (00:46→23:48)
[2023-03-20] MEDS: JEVITY 1.2 1000 ML LIQUID GT PRN ×2 (01:42→18:46)
[2023-03-20] MEDS: NUTRISOURCE FIBER 4 GM PACKET GT SCH ×2 (05:46→17:15)
[2023-03-20] MEDS: BACLOFEN 10 MG TABLET GT SCH ×3 (05:46→22:28)
[2023-03-20] MEDS: OMEPRAZOLE 20 MG CAPSULE.DR GT SCH (05:46)
[2023-03-20] MEDS: ACIDOPHILUS/BULGARICUS CHEW TAB GT SCH ×2 (05:46→17:15)
[2023-03-20 07:22] VITALS: TEMP 98.7
[2023-03-20] MEDS: HYDROGEN PEROXIDE 3% 118 ML BOTTLE TP SCH ×2 (08:10→21:00)
[2023-03-20] MEDS: DULOXETINE 20 MG CAPSULE.DR GT SCH (08:24)
[2023-03-20] MEDS: FINASTERIDE 5 MG TABLET GT SCH (08:24)
[2023-03-20] MEDS: REMEDY ESSENTIAL ZINC PASTE 113 GM TP SCH ×2 (08:25→21:00)
[2023-03-20] MEDS: VITAMINS A AND D OINT 42 GM TUBE TP SCH (08:25)
[2023-03-20] MEDS: ASCORBIC ACID 500 MG TABLET GT SCH (08:25)
[2023-03-20 20:10] VITALS: TEMP 98.5
[2023-03-20] MEDS: MULTIVIT, IRON, MIN NO. 8, FA TABLET GT SCH (21:00)
[2023-03-20] MEDS: PROTEIN SUPPLEMENT (PROSTAT) 30 ML LIQUID GT SCH (21:00)
[2023-03-21] MEDS: NUTRISOURCE FIBER 4 GM PACKET GT SCH ×2 (05:52→18:12)
[2023-03-21] MEDS: BACLOFEN 10 MG TABLET GT SCH ×3 (05:52→22:00)
[2023-03-21] MEDS: OMEPRAZOLE 20 MG CAPSULE.DR GT SCH (05:52)
[2023-03-21] MEDS: ACIDOPHILUS/BULGARICUS CHEW TAB GT SCH ×2 (05:52→18:12)
[2023-03-21] MEDS: SIMETHICONE 80 MG TAB.CHEW GT SCH ×3 (05:52→18:12)
[2023-03-21 07:28] VITALS: TEMP 98.9
[2023-03-21] MEDS: ASCORBIC ACID 500 MG TABLET GT SCH (08:29)
[2023-03-21] MEDS: FINASTERIDE 5 MG TABLET GT SCH (08:29)
[2023-03-21] MEDS: DULOXETINE 20 MG CAPSULE.DR GT SCH (08:29)
[2023-03-21] MEDS: VITAMINS A AND D OINT 42 GM TUBE TP SCH (08:30)
[2023-03-21] MEDS: REMEDY ESSENTIAL ZINC PASTE 113 GM TP SCH ×2 (08:30→20:24)
[2023-03-21] MEDS: HYDROGEN PEROXIDE 3% 118 ML BOTTLE TP SCH ×2 (09:10→21:00)
[2023-03-21 20:20] VITALS: TEMP 98.1
[2023-03-21] MEDS: MULTIVIT, IRON, MIN NO. 8, FA TABLET GT SCH (20:23)
[2023-03-21] MEDS: PROTEIN SUPPLEMENT (PROSTAT) 30 ML LIQUID GT SCH (20:23)
[2023-03-22] MEDS: BACLOFEN 10 MG TABLET GT SCH ×3 (05:24→21:50)
[2023-03-22] MEDS: ACIDOPHILUS/BULGARICUS CHEW TAB GT SCH ×2 (05:24→17:58)
[2023-03-22] MEDS: OMEPRAZOLE 20 MG CAPSULE.DR GT SCH (05:24)
[2023-03-22] MEDS: SIMETHICONE 80 MG TAB.CHEW GT SCH ×4 (05:24→17:58)
[2023-03-22] MEDS: NUTRISOURCE FIBER 4 GM PACKET GT SCH ×2 (05:24→17:58)
[2023-03-22 07:48] VITALS: TEMP 97.3
[2023-03-22] MEDS: FINASTERIDE 5 MG TABLET GT SCH (08:40)
[2023-03-22] MEDS: DULOXETINE 20 MG CAPSULE.DR GT SCH (08:40)
[2023-03-22] MEDS: REMEDY ESSENTIAL ZINC PASTE 113 GM TP SCH ×2 (08:41→20:37)
[2023-03-22] MEDS: VITAMINS A AND D OINT 42 GM TUBE TP SCH (08:41)
[2023-03-22] MEDS: ASCORBIC ACID 500 MG TABLET GT SCH (08:42)
[2023-03-22] MEDS: HYDROGEN PEROXIDE 3% 118 ML BOTTLE TP SCH ×2 (09:00→21:00)
[2023-03-22 20:00] VITALS: TEMP 98
[2023-03-22] MEDS: PROTEIN SUPPLEMENT (PROSTAT) 30 ML LIQUID GT SCH (20:37)
[2023-03-22] MEDS: MULTIVIT, IRON, MIN NO. 8, FA TABLET GT SCH (20:37)
[2023-03-23] MEDS: SIMETHICONE 80 MG TAB.CHEW GT SCH ×4 (00:41→17:18)
[2023-03-23] MEDS: HARRIS FLUSH ENEMA PR PRN (01:32)
[2023-03-23] MEDS: JEVITY 1.2 1000 ML LIQUID GT PRN (04:10)
[2023-03-23] MEDS: NUTRISOURCE FIBER 4 GM PACKET GT SCH ×2 (05:51→17:19)
[2023-03-23] MEDS: ACIDOPHILUS/BULGARICUS CHEW TAB GT SCH ×2 (05:51→17:18)
[2023-03-23] MEDS: BACLOFEN 10 MG TABLET GT SCH ×3 (05:51→21:50)
[2023-03-23] MEDS: OMEPRAZOLE 20 MG CAPSULE.DR GT SCH (05:52)
[2023-03-23] MEDS: HYDROGEN PEROXIDE 3% 118 ML BOTTLE TP SCH ×2 (07:20→21:28)
[2023-03-23 07:44] VITALS: TEMP 98.4
[2023-03-23] MEDS: FINASTERIDE 5 MG TABLET GT SCH (08:33)
[2023-03-23] MEDS: ASCORBIC ACID 500 MG TABLET GT SCH (08:33)
[2023-03-23] MEDS: DULOXETINE 20 MG CAPSULE.DR GT SCH (08:33)
[2023-03-23] MEDS: REMEDY ESSENTIAL ZINC PASTE 113 GM TP SCH ×2 (08:33→20:30)
[2023-03-23] MEDS: VITAMINS A AND D OINT 42 GM TUBE TP SCH (08:34)
[2023-03-23 20:00] VITALS: TEMP 98.1
[2023-03-23] MEDS: MULTIVIT, IRON, MIN NO. 8, FA TABLET GT SCH (20:30)
[2023-03-23] MEDS: PROTEIN SUPPLEMENT (PROSTAT) 30 ML LIQUID GT SCH (20:30)
[2023-03-24] MEDS: JEVITY 1.2 1000 ML LIQUID GT PRN ×2 (00:15→17:02)
[2023-03-24] MEDS: SIMETHICONE 80 MG TAB.CHEW GT SCH ×4 (00:15→17:01)
[2023-03-24] MEDS: NUTRISOURCE FIBER 4 GM PACKET GT SCH ×2 (05:37→17:01)
[2023-03-24] MEDS: OMEPRAZOLE 20 MG CAPSULE.DR GT SCH (05:37)
[2023-03-24] MEDS: BACLOFEN 10 MG TABLET GT SCH ×3 (05:37→21:28)
[2023-03-24] MEDS: ACIDOPHILUS/BULGARICUS CHEW TAB GT SCH ×2 (05:37→17:01)
[2023-03-24 07:50] VITALS: TEMP 98.2
[2023-03-24] MEDS: FINASTERIDE 5 MG TABLET GT SCH (08:19)
[2023-03-24] MEDS: DULOXETINE 20 MG CAPSULE.DR GT SCH (08:19)
[2023-03-24] MEDS: REMEDY ESSENTIAL ZINC PASTE 113 GM TP SCH ×2 (08:20→21:28)
[2023-03-24] MEDS: ASCORBIC ACID 500 MG TABLET GT SCH (08:20)
[2023-03-24] MEDS: VITAMINS A AND D OINT 42 GM TUBE TP SCH (08:20)
[2023-03-24] MEDS: HYDROGEN PEROXIDE 3% 118 ML BOTTLE TP SCH ×2 (09:30→23:26)
[2023-03-24] MEDS: HARRIS FLUSH ENEMA PR PRN (15:05)
[2023-03-24 20:00] VITALS: TEMP 98
[2023-03-24] MEDS: MULTIVIT, IRON, MIN NO. 8, FA TABLET GT SCH (21:28)
[2023-03-24] MEDS: PROTEIN SUPPLEMENT (PROSTAT) 30 ML LIQUID GT SCH (21:28)
[2023-03-25] MEDS: SIMETHICONE 80 MG TAB.CHEW GT SCH ×4 (00:31→17:24)
[2023-03-25] MEDS: NUTRISOURCE FIBER 4 GM PACKET GT SCH ×2 (05:05→17:24)
[2023-03-25] MEDS: ACIDOPHILUS/BULGARICUS CHEW TAB GT SCH ×2 (05:05→17:24)
[2023-03-25] MEDS: OMEPRAZOLE 20 MG CAPSULE.DR GT SCH (05:05)
[2023-03-25] MEDS: BACLOFEN 10 MG TABLET GT SCH ×3 (05:05→21:18)
[2023-03-25] MEDS: HYDROGEN PEROXIDE 3% 118 ML BOTTLE TP SCH ×2 (07:16→20:41)
[2023-03-25 07:59] VITALS: TEMP 98.9
[2023-03-25] MEDS: FINASTERIDE 5 MG TABLET GT SCH (08:47)
[2023-03-25] MEDS: VITAMINS A AND D OINT 42 GM TUBE TP SCH (08:47)
[2023-03-25] MEDS: DULOXETINE 20 MG CAPSULE.DR GT SCH (08:47)
[2023-03-25] MEDS: ASCORBIC ACID 500 MG TABLET GT SCH (08:47)
[2023-03-25] MEDS: REMEDY ESSENTIAL ZINC PASTE 113 GM TP SCH ×2 (08:47→21:18)
[2023-03-25] MEDS: JEVITY 1.2 1000 ML LIQUID GT PRN (10:53)
[2023-03-25 20:19] VITALS: TEMP 97.5
[2023-03-25] MEDS: PROTEIN SUPPLEMENT (PROSTAT) 30 ML LIQUID GT SCH (21:18)
[2023-03-25] MEDS: MULTIVIT, IRON, MIN NO. 8, FA TABLET GT SCH (21:18)
[2023-03-26] MEDS: JEVITY 1.2 1000 ML LIQUID GT PRN (02:46)
[2023-03-26] MEDS: BACLOFEN 10 MG TABLET GT SCH ×3 (05:33→22:05)
[2023-03-26] MEDS: ACIDOPHILUS/BULGARICUS CHEW TAB GT SCH ×2 (05:33→18:27)
[2023-03-26] MEDS: SIMETHICONE 80 MG TAB.CHEW GT SCH ×4 (05:33→18:27)
[2023-03-26] MEDS: OMEPRAZOLE 20 MG CAPSULE.DR GT SCH (05:33)
[2023-03-26] MEDS: NUTRISOURCE FIBER 4 GM PACKET GT SCH ×2 (05:33→18:27)
[2023-03-26 07:23] VITALS: TEMP 99.4
[2023-03-26] MEDS: VITAMINS A AND D OINT 42 GM TUBE TP SCH (08:10)
[2023-03-26] MEDS: REMEDY ESSENTIAL ZINC PASTE 113 GM TP SCH ×2 (08:10→21:00)
[2023-03-26] MEDS: FINASTERIDE 5 MG TABLET GT SCH (08:10)
[2023-03-26] MEDS: ASCORBIC ACID 500 MG TABLET GT SCH (08:10)
[2023-03-26] MEDS: DULOXETINE 20 MG CAPSULE.DR GT SCH (08:10)
[2023-03-26] MEDS: HYDROGEN PEROXIDE 3% 118 ML BOTTLE TP SCH ×2 (09:00→18:53)
[2023-03-26] MEDS: HARRIS FLUSH ENEMA PR PRN (18:27)
[2023-03-26 19:43] VITALS: TEMP 98.7
[2023-03-26] MEDS: MULTIVIT, IRON, MIN NO. 8, FA TABLET GT SCH (21:00)
[2023-03-26] MEDS: PROTEIN SUPPLEMENT (PROSTAT) 30 ML LIQUID GT SCH (21:00)
[2023-03-27] MEDS: BACLOFEN 10 MG TABLET GT SCH ×3 (05:13→21:18)
[2023-03-27] MEDS: ACIDOPHILUS/BULGARICUS CHEW TAB GT SCH ×2 (05:13→18:04)
[2023-03-27] MEDS: NUTRISOURCE FIBER 4 GM PACKET GT SCH ×2 (05:13→18:04)
[2023-03-27] MEDS: SIMETHICONE 80 MG TAB.CHEW GT SCH ×4 (05:13→18:04)
[2023-03-27] MEDS: OMEPRAZOLE 20 MG CAPSULE.DR GT SCH (05:35)
[2023-03-27 07:21] VITALS: TEMP 98.2
[2023-03-27] MEDS: HYDROGEN PEROXIDE 3% 118 ML BOTTLE TP SCH ×2 (08:23→21:00)
[2023-03-27] MEDS: FINASTERIDE 5 MG TABLET GT SCH (08:29)
[2023-03-27] MEDS: DULOXETINE 20 MG CAPSULE.DR GT SCH (08:29)
[2023-03-27] MEDS: VITAMINS A AND D OINT 42 GM TUBE TP SCH (08:29)
[2023-03-27] MEDS: REMEDY ESSENTIAL ZINC PASTE 113 GM TP SCH ×2 (08:29→21:17)
[2023-03-27] MEDS: ASCORBIC ACID 500 MG TABLET GT SCH (08:29)
[2023-03-27 20:03] VITALS: TEMP 98.1
[2023-03-27] MEDS: PROTEIN SUPPLEMENT (PROSTAT) 30 ML LIQUID GT SCH (21:16)
[2023-03-27] MEDS: MULTIVIT, IRON, MIN NO. 8, FA TABLET GT SCH (21:17)
[2023-03-28] MEDS: JEVITY 1.2 1000 ML LIQUID GT PRN ×2 (04:50→22:56)
[2023-03-28] MEDS: SIMETHICONE 80 MG TAB.CHEW GT SCH ×5 (06:44→23:11)
[2023-03-28] MEDS: NUTRISOURCE FIBER 4 GM PACKET GT SCH ×2 (06:44→18:25)
[2023-03-28] MEDS: OMEPRAZOLE 20 MG CAPSULE.DR GT SCH (06:44)
[2023-03-28] MEDS: BACLOFEN 10 MG TABLET GT SCH ×3 (06:44→21:20)
[2023-03-28] MEDS: ACIDOPHILUS/BULGARICUS CHEW TAB GT SCH ×3 (06:44→23:11)
[2023-03-28 07:57] VITALS: TEMP 98.6
[2023-03-28] MEDS: HYDROGEN PEROXIDE 3% 118 ML BOTTLE TP SCH ×2 (08:48→21:00)
[2023-03-28] MEDS: DULOXETINE 20 MG CAPSULE.DR GT SCH (09:04)
[2023-03-28] MEDS: VITAMINS A AND D OINT 42 GM TUBE TP SCH (09:04)
[2023-03-28] MEDS: ASCORBIC ACID 500 MG TABLET GT SCH (09:04)
[2023-03-28] MEDS: FINASTERIDE 5 MG TABLET GT SCH (09:04)
[2023-03-28] MEDS: REMEDY ESSENTIAL ZINC PASTE 113 GM TP SCH ×2 (09:04→21:20)
[2023-03-28 20:48] VITALS: TEMP 98.4
[2023-03-28] MEDS: PROTEIN SUPPLEMENT (PROSTAT) 30 ML LIQUID GT SCH (21:18)
[2023-03-28] MEDS: MULTIVIT, IRON, MIN NO. 8, FA TABLET GT SCH (21:19)
[2023-03-28] MEDS: HARRIS FLUSH ENEMA PR PRN (22:00)
[2023-03-29] MEDS: NUTRISOURCE FIBER 4 GM PACKET GT SCH ×2 (05:47→17:36)
[2023-03-29] MEDS: SIMETHICONE 80 MG TAB.CHEW GT SCH ×3 (05:47→17:36)
[2023-03-29] MEDS: OMEPRAZOLE 20 MG CAPSULE.DR GT SCH (05:47)
[2023-03-29] MEDS: BACLOFEN 10 MG TABLET GT SCH ×3 (05:47→22:01)
[2023-03-29 07:32] VITALS: TEMP 97.7
[2023-03-29] MEDS: DULOXETINE 20 MG CAPSULE.DR GT SCH (08:46)
[2023-03-29] MEDS: REMEDY ESSENTIAL ZINC PASTE 113 GM TP SCH ×2 (08:46→20:31)
[2023-03-29] MEDS: VITAMINS A AND D OINT 42 GM TUBE TP SCH (08:46)
[2023-03-29] MEDS: ASCORBIC ACID 500 MG TABLET GT SCH (08:46)
[2023-03-29] MEDS: FINASTERIDE 5 MG TABLET GT SCH (08:46)
[2023-03-29] MEDS: HYDROGEN PEROXIDE 3% 118 ML BOTTLE TP SCH ×2 (09:00→19:15)
[2023-03-29] MEDS: ACIDOPHILUS/BULGARICUS CHEW TAB GT SCH (17:36)
[2023-03-29] MEDS: JEVITY 1.2 1000 ML LIQUID GT PRN (17:45)
[2023-03-29 19:36] VITALS: TEMP 97.8
[2023-03-29] MEDS: MULTIVIT, IRON, MIN NO. 8, FA TABLET GT SCH (20:29)
[2023-03-29] MEDS: PROTEIN SUPPLEMENT (PROSTAT) 30 ML LIQUID GT SCH (20:29)
[2023-03-30] MEDS: ACIDOPHILUS/BULGARICUS CHEW TAB GT SCH ×2 (05:45→17:52)
[2023-03-30] MEDS: SIMETHICONE 80 MG TAB.CHEW GT SCH ×4 (05:45→17:52)
[2023-03-30] MEDS: BACLOFEN 10 MG TABLET GT SCH ×3 (05:45→21:31)
[2023-03-30] MEDS: NUTRISOURCE FIBER 4 GM PACKET GT SCH ×2 (05:45→17:52)
[2023-03-30] MEDS: OMEPRAZOLE 20 MG CAPSULE.DR GT SCH (05:45)
[2023-03-30] MEDS: HYDROGEN PEROXIDE 3% 118 ML BOTTLE TP SCH ×2 (07:20→19:13)
[2023-03-30 07:37] VITALS: TEMP 98.7
[2023-03-30] MEDS: VITAMINS A AND D OINT 42 GM TUBE TP SCH (08:34)
[2023-03-30] MEDS: REMEDY ESSENTIAL ZINC PASTE 113 GM TP SCH ×2 (08:34→21:31)
[2023-03-30] MEDS: ASCORBIC ACID 500 MG TABLET GT SCH (08:34)
[2023-03-30] MEDS: DULOXETINE 20 MG CAPSULE.DR GT SCH (08:34)
[2023-03-30] MEDS: FINASTERIDE 5 MG TABLET GT SCH (08:34)
[2023-03-30] MEDS: JEVITY 1.2 1000 ML LIQUID GT PRN (14:40)
[2023-03-30 19:57] VITALS: TEMP 97.7
[2023-03-30] MEDS: PROTEIN SUPPLEMENT (PROSTAT) 30 ML LIQUID GT SCH (21:31)
[2023-03-30] MEDS: MULTIVIT, IRON, MIN NO. 8, FA TABLET GT SCH (21:31)
[2023-03-31] MEDS: BACLOFEN 10 MG TABLET GT SCH ×3 (05:25→22:37)
[2023-03-31] MEDS: SIMETHICONE 80 MG TAB.CHEW GT SCH ×4 (05:25→17:04)
[2023-03-31] MEDS: OMEPRAZOLE 20 MG CAPSULE.DR GT SCH (05:25)
[2023-03-31] MEDS: ACIDOPHILUS/BULGARICUS CHEW TAB GT SCH ×2 (05:25→17:04)
[2023-03-31] MEDS: NUTRISOURCE FIBER 4 GM PACKET GT SCH ×2 (05:25→17:04)
[2023-03-31] MEDS: JEVITY 1.2 1000 ML LIQUID GT PRN (06:30)
[2023-03-31] MEDS: ASCORBIC ACID 500 MG TABLET GT SCH (08:27)
[2023-03-31] MEDS: VITAMINS A AND D OINT 42 GM TUBE TP SCH (08:27)
[2023-03-31] MEDS: REMEDY ESSENTIAL ZINC PASTE 113 GM TP SCH ×2 (08:27→21:00)
[2023-03-31] MEDS: DULOXETINE 20 MG CAPSULE.DR GT SCH (08:27)
[2023-03-31] MEDS: FINASTERIDE 5 MG TABLET GT SCH (08:27)
[2023-03-31] MEDS: HYDROGEN PEROXIDE 3% 118 ML BOTTLE TP SCH ×2 (09:23→19:17)
[2023-03-31 11:54] VITALS: TEMP 98.2
[2023-03-31 20:32] VITALS: TEMP 98.4
[2023-03-31] MEDS: PROTEIN SUPPLEMENT (PROSTAT) 30 ML LIQUID GT SCH (21:00)
[2023-03-31] MEDS: MULTIVIT, IRON, MIN NO. 8, FA TABLET GT SCH (21:00)
[2023-04-01] MEDS: JEVITY 1.2 1000 ML LIQUID GT PRN ×2 (01:23→18:27)
[2023-04-01] MEDS: NUTRISOURCE FIBER 4 GM PACKET GT SCH ×2 (06:38→17:13)
[2023-04-01] MEDS: ACIDOPHILUS/BULGARICUS CHEW TAB GT SCH ×2 (06:38→17:13)
[2023-04-01] MEDS: BACLOFEN 10 MG TABLET GT SCH ×3 (06:38→21:29)
[2023-04-01] MEDS: SIMETHICONE 80 MG TAB.CHEW GT SCH ×4 (06:39→17:13)
[2023-04-01] MEDS: OMEPRAZOLE 20 MG CAPSULE.DR GT SCH (06:39)
[2023-04-01 08:00] VITALS: TEMP 98.2
[2023-04-01] MEDS: FINASTERIDE 5 MG TABLET GT SCH (08:51)
[2023-04-01] MEDS: ASCORBIC ACID 500 MG TABLET GT SCH (08:51)
[2023-04-01] MEDS: VITAMINS A AND D OINT 42 GM TUBE TP SCH (08:51)
[2023-04-01] MEDS: REMEDY ESSENTIAL ZINC PASTE 113 GM TP SCH ×2 (08:51→21:28)
[2023-04-01] MEDS: DULOXETINE 20 MG CAPSULE.DR GT SCH (08:51)
[2023-04-01] MEDS: HYDROGEN PEROXIDE 3% 118 ML BOTTLE TP SCH ×2 (10:23→21:03)
[2023-04-01 20:00] VITALS: TEMP 98.2
[2023-04-01] MEDS: MULTIVIT, IRON, MIN NO. 8, FA TABLET GT SCH (21:28)
[2023-04-01] MEDS: PROTEIN SUPPLEMENT (PROSTAT) 30 ML LIQUID GT SCH (21:28)
[2023-04-02] MEDS: NUTRISOURCE FIBER 4 GM PACKET GT SCH ×2 (06:05→17:52)
[2023-04-02] MEDS: OMEPRAZOLE 20 MG CAPSULE.DR GT SCH (06:05)
[2023-04-02] MEDS: SIMETHICONE 80 MG TAB.CHEW GT SCH ×4 (06:06→17:52)
[2023-04-02] MEDS: BACLOFEN 10 MG TABLET GT SCH ×3 (06:07→22:51)
[2023-04-02] MEDS: ACIDOPHILUS/BULGARICUS CHEW TAB GT SCH ×2 (06:08→17:52)
[2023-04-02 08:00] VITALS: TEMP 97.9
[2023-04-02] MEDS: FINASTERIDE 5 MG TABLET GT SCH (08:40)
[2023-04-02] MEDS: DULOXETINE 20 MG CAPSULE.DR GT SCH (08:40)
[2023-04-02] MEDS: ASCORBIC ACID 500 MG TABLET GT SCH (08:40)
[2023-04-02] MEDS: VITAMINS A AND D OINT 42 GM TUBE TP SCH (08:41)
[2023-04-02] MEDS: REMEDY ESSENTIAL ZINC PASTE 113 GM TP SCH ×2 (08:41→20:00)
[2023-04-02] MEDS: HYDROGEN PEROXIDE 3% 118 ML BOTTLE TP SCH ×2 (09:51→21:00)
[2023-04-02] MEDS: JEVITY 1.2 1000 ML LIQUID GT PRN (12:01)
[2023-04-02] MEDS: PROTEIN SUPPLEMENT (PROSTAT) 30 ML LIQUID GT SCH (20:00)
[2023-04-02] MEDS: MULTIVIT, IRON, MIN NO. 8, FA TABLET GT SCH (20:00)
[2023-04-02 20:22] VITALS: TEMP 98.4
[2023-04-03] MEDS: SIMETHICONE 80 MG TAB.CHEW GT SCH ×4 (00:41→17:06)
[2023-04-03] MEDS: JEVITY 1.2 1000 ML LIQUID GT PRN (02:17)
[2023-04-03] MEDS: HARRIS FLUSH ENEMA PR PRN (03:00)
[2023-04-03] MEDS: NUTRISOURCE FIBER 4 GM PACKET GT SCH ×2 (05:07→17:06)
[2023-04-03] MEDS: BACLOFEN 10 MG TABLET GT SCH ×3 (05:07→21:47)
[2023-04-03] MEDS: ACIDOPHILUS/BULGARICUS CHEW TAB GT SCH ×2 (05:07→17:06)
[2023-04-03] MEDS: OMEPRAZOLE 20 MG CAPSULE.DR GT SCH (05:07)
[2023-04-03 07:24] VITALS: TEMP 98.3
[2023-04-03] MEDS: HYDROGEN PEROXIDE 3% 118 ML BOTTLE TP SCH ×2 (07:29→21:00)
[2023-04-03] MEDS: FINASTERIDE 5 MG TABLET GT SCH (08:14)
[2023-04-03] MEDS: ASCORBIC ACID 500 MG TABLET GT SCH (08:14)
[2023-04-03] MEDS: REMEDY ESSENTIAL ZINC PASTE 113 GM TP SCH ×2 (08:14→21:47)
[2023-04-03] MEDS: DULOXETINE 20 MG CAPSULE.DR GT SCH (08:14)
[2023-04-03] MEDS: VITAMINS A AND D OINT 42 GM TUBE TP SCH (08:14)
[2023-04-03 19:52] VITALS: TEMP 98.7
[2023-04-03] MEDS: PROTEIN SUPPLEMENT (PROSTAT) 30 ML LIQUID GT SCH (21:46)
[2023-04-03] MEDS: MULTIVIT, IRON, MIN NO. 8, FA TABLET GT SCH (21:46)
[2023-04-04] MEDS: JEVITY 1.2 1000 ML LIQUID GT PRN ×2 (00:12→18:32)
[2023-04-04] MEDS: SIMETHICONE 80 MG TAB.CHEW GT SCH ×4 (00:12→17:47)
[2023-04-04] MEDS: BACLOFEN 10 MG TABLET GT SCH ×3 (05:10→21:38)
[2023-04-04] MEDS: NUTRISOURCE FIBER 4 GM PACKET GT SCH ×2 (05:10→17:47)
[2023-04-04] MEDS: OMEPRAZOLE 20 MG CAPSULE.DR GT SCH (05:10)
[2023-04-04] MEDS: ACIDOPHILUS/BULGARICUS CHEW TAB GT SCH ×2 (05:10→17:47)
[2023-04-04 07:34] VITALS: TEMP 98.7
[2023-04-04] MEDS: HYDROGEN PEROXIDE 3% 118 ML BOTTLE TP SCH ×2 (08:55→20:27)
[2023-04-04] MEDS: REMEDY ESSENTIAL ZINC PASTE 113 GM TP SCH ×2 (09:33→20:33)
[2023-04-04] MEDS: VITAMINS A AND D OINT 42 GM TUBE TP SCH (09:33)
[2023-04-04] MEDS: ACETAMINOPHEN 650 MG/20 ML UDC- SA PATIENTS-PAIN ONLY GT PRN (09:33)
[2023-04-04] MEDS: DULOXETINE 20 MG CAPSULE.DR GT SCH (09:33)
[2023-04-04] MEDS: ASCORBIC ACID 500 MG TABLET GT SCH (09:33)
[2023-04-04] MEDS: FINASTERIDE 5 MG TABLET GT SCH (09:33)
[2023-04-04 20:08] VITALS: TEMP 98.8
[2023-04-04] MEDS: MULTIVIT, IRON, MIN NO. 8, FA TABLET GT SCH (20:33)
[2023-04-04] MEDS: PROTEIN SUPPLEMENT (PROSTAT) 30 ML LIQUID GT SCH (20:33)
[2023-04-05] MEDS: HARRIS FLUSH ENEMA PR PRN (02:00)
[2023-04-05] MEDS: OMEPRAZOLE 20 MG CAPSULE.DR GT SCH (06:15)
[2023-04-05] MEDS: ACIDOPHILUS/BULGARICUS CHEW TAB GT SCH ×2 (06:15→17:11)
[2023-04-05] MEDS: BACLOFEN 10 MG TABLET GT SCH ×3 (06:15→21:00)
[2023-04-05] MEDS: SIMETHICONE 80 MG TAB.CHEW GT SCH ×4 (06:15→17:11)
[2023-04-05] MEDS: NUTRISOURCE FIBER 4 GM PACKET GT SCH ×2 (06:15→17:11)
[2023-04-05 07:54] VITALS: TEMP 98.1
[2023-04-05] MEDS: HYDROGEN PEROXIDE 3% 118 ML BOTTLE TP SCH ×2 (09:00→21:00)
[2023-04-05] MEDS: VITAMINS A AND D OINT 42 GM TUBE TP SCH (09:15)
[2023-04-05] MEDS: REMEDY ESSENTIAL ZINC PASTE 113 GM TP SCH ×2 (09:15→21:00)
[2023-04-05] MEDS: DULOXETINE 20 MG CAPSULE.DR GT SCH (09:15)
[2023-04-05] MEDS: ASCORBIC ACID 500 MG TABLET GT SCH (09:15)
[2023-04-05] MEDS: FINASTERIDE 5 MG TABLET GT SCH (09:15)
[2023-04-05 20:00] VITALS: TEMP 97.8
[2023-04-05] MEDS: PROTEIN SUPPLEMENT (PROSTAT) 30 ML LIQUID GT SCH (20:59)
[2023-04-05] MEDS: MULTIVIT, IRON, MIN NO. 8, FA TABLET GT SCH (20:59)
[2023-04-06] MEDS: JEVITY 1.2 1000 ML LIQUID GT PRN (04:30)
[2023-04-06] MEDS: ACIDOPHILUS/BULGARICUS CHEW TAB GT SCH ×2 (06:21→18:05)
[2023-04-06] MEDS: SIMETHICONE 80 MG TAB.CHEW GT SCH ×5 (06:21→22:15)
[2023-04-06] MEDS: BACLOFEN 10 MG TABLET GT SCH ×3 (06:21→22:14)
[2023-04-06] MEDS: OMEPRAZOLE 20 MG CAPSULE.DR GT SCH (06:21)
[2023-04-06] MEDS: NUTRISOURCE FIBER 4 GM PACKET GT SCH ×2 (06:21→18:05)
[2023-04-06] MEDS: HYDROGEN PEROXIDE 3% 118 ML BOTTLE TP SCH ×2 (07:20→19:06)
[2023-04-06 08:00] VITALS: TEMP 98.2
[2023-04-06] MEDS: DULOXETINE 20 MG CAPSULE.DR GT SCH (08:17)
[2023-04-06] MEDS: FINASTERIDE 5 MG TABLET GT SCH (08:18)
[2023-04-06] MEDS: ASCORBIC ACID 500 MG TABLET GT SCH (08:18)
[2023-04-06] MEDS: VITAMINS A AND D OINT 42 GM TUBE TP SCH (08:18)
[2023-04-06] MEDS: REMEDY ESSENTIAL ZINC PASTE 113 GM TP SCH ×2 (08:18→21:00)
[2023-04-06 20:44] VITALS: TEMP 98.1
[2023-04-06] MEDS: MULTIVIT, IRON, MIN NO. 8, FA TABLET GT SCH (21:00)
[2023-04-06] MEDS: PROTEIN SUPPLEMENT (PROSTAT) 30 ML LIQUID GT SCH (21:00)
[2023-04-07] MEDS: JEVITY 1.2 1000 ML LIQUID GT PRN ×2 (00:12→18:01)
[2023-04-07] MEDS: SIMETHICONE 80 MG TAB.CHEW GT SCH ×4 (06:12→22:32)
[2023-04-07] MEDS: OMEPRAZOLE 20 MG CAPSULE.DR GT SCH (06:12)
[2023-04-07] MEDS: BACLOFEN 10 MG TABLET GT SCH ×3 (06:12→22:32)
[2023-04-07] MEDS: ACIDOPHILUS/BULGARICUS CHEW TAB GT SCH ×2 (06:12→17:45)
[2023-04-07] MEDS: NUTRISOURCE FIBER 4 GM PACKET GT SCH ×2 (06:12→17:45)
[2023-04-07] MEDS: HYDROGEN PEROXIDE 3% 118 ML BOTTLE TP SCH ×2 (07:20→19:03)
[2023-04-07 07:38] VITALS: TEMP 98.3
[2023-04-07] MEDS: DULOXETINE 20 MG CAPSULE.DR GT SCH (09:01)
[2023-04-07] MEDS: REMEDY ESSENTIAL ZINC PASTE 113 GM TP SCH ×2 (09:02→21:00)
[2023-04-07] MEDS: ASCORBIC ACID 500 MG TABLET GT SCH (09:02)
[2023-04-07] MEDS: VITAMINS A AND D OINT 42 GM TUBE TP SCH (09:02)
[2023-04-07] MEDS: FINASTERIDE 5 MG TABLET GT SCH (09:02)
[2023-04-07] MEDS: HARRIS FLUSH ENEMA PR PRN (18:02)
[2023-04-07 20:56] VITALS: TEMP 98
[2023-04-07] MEDS: MULTIVIT, IRON, MIN NO. 8, FA TABLET GT SCH (21:00)
[2023-04-07] MEDS: PROTEIN SUPPLEMENT (PROSTAT) 30 ML LIQUID GT SCH (21:00)
[2023-04-08] MEDS: ACIDOPHILUS/BULGARICUS CHEW TAB GT SCH ×2 (05:00→17:38)
[2023-04-08] MEDS: SIMETHICONE 80 MG TAB.CHEW GT SCH ×3 (05:00→17:38)
[2023-04-08] MEDS: OMEPRAZOLE 20 MG CAPSULE.DR GT SCH (05:00)
[2023-04-08] MEDS: NUTRISOURCE FIBER 4 GM PACKET GT SCH ×2 (05:00→17:38)
[2023-04-08] MEDS: BACLOFEN 10 MG TABLET GT SCH ×3 (05:00→21:59)
[2023-04-08 07:42] VITALS: TEMP 98.5
[2023-04-08] MEDS: DULOXETINE 20 MG CAPSULE.DR GT SCH (08:33)
[2023-04-08] MEDS: VITAMINS A AND D OINT 42 GM TUBE TP SCH (08:33)
[2023-04-08] MEDS: ASCORBIC ACID 500 MG TABLET GT SCH (08:33)
[2023-04-08] MEDS: REMEDY ESSENTIAL ZINC PASTE 113 GM TP SCH ×2 (08:33→20:35)
[2023-04-08] MEDS: FINASTERIDE 5 MG TABLET GT SCH (08:33)
[2023-04-08] MEDS: HYDROGEN PEROXIDE 3% 118 ML BOTTLE TP SCH ×2 (09:39→20:07)
[2023-04-08] MEDS: JEVITY 1.2 1000 ML LIQUID GT PRN (13:52)
[2023-04-08 20:26] VITALS: TEMP 98.2
[2023-04-08] MEDS: MULTIVIT, IRON, MIN NO. 8, FA TABLET GT SCH (20:35)
[2023-04-08] MEDS: PROTEIN SUPPLEMENT (PROSTAT) 30 ML LIQUID GT SCH (20:35)
[2023-04-09] MEDS: OMEPRAZOLE 20 MG CAPSULE.DR GT SCH (05:23)
[2023-04-09] MEDS: NUTRISOURCE FIBER 4 GM PACKET GT SCH ×2 (05:23→17:47)
[2023-04-09] MEDS: SIMETHICONE 80 MG TAB.CHEW GT SCH ×4 (05:23→17:47)
[2023-04-09] MEDS: BACLOFEN 10 MG TABLET GT SCH ×3 (05:23→21:42)
[2023-04-09] MEDS: ACIDOPHILUS/BULGARICUS CHEW TAB GT SCH ×2 (05:23→17:47)
[2023-04-09 06:54] LABS: BASOPHILS % (AUTO) 0.5 % (0.0-2.0); EOSINOPHILS # (AUTO) 0.2 K/uL (0.0-0.7); EOSINOPHILS % (AUTO) 3.5 % (0.0-7.0); HEMATOCRIT 39.4 % (36.7-47.1); HEMOGLOBIN 13.1 g/dL (12.5-16.3); LYMPHOCYTES # (AUTO) 1.5 K/uL (0.8-4.8); LYMPHOCYTES % (AUTO) 24.6 % (20.5-51.5); MEAN CORPUSCULAR HEMOGLOBIN 28.4 uug (23.8-33.4); MEAN CORPUSCULAR HGB CONC 33 g/dL (32.5-36.3); MEAN CORPUSCULAR VOLUME 85.6 fL (73.0-96.2); MONOCYTES # (AUTO) 0.5 K/uL (0.1-1.30); MONOCYTES % (AUTO) 8.7 % (0.0-11.0); NEUTROPHILS # (AUTO) 3.9 K/uL (1.8-8.9); NEUTROPHILS % (AUTO) 62.7 % (38.5-71.5); PLATELET COUNT (AUTO) 164 K/uL (152-348); RED CELL DISTRIBUTION WIDTH 14.2 % (12.1-16.2); WHITE BLOOD COUNT (AUTO) 6.2 K/uL (3.6-10.2)
[2023-04-09 07:07] LABS: DIFFERENTIAL COMMENT 1
[2023-04-09 07:17] LABS: CALCIUM 8.5 mg/dL (8.5-10.1); CREATININE 0.6 mg/dL (0.6-1.3); PHOSPHOROUS 3.4 mg/dL (2.5-4.9); POTASSIUM 4.2 mmol/L (3.5-5.1)
[2023-04-09 07:26] VITALS: TEMP 98.3
[2023-04-09] MEDS: VITAMINS A AND D OINT 42 GM TUBE TP SCH (09:09)
[2023-04-09] MEDS: REMEDY ESSENTIAL ZINC PASTE 113 GM TP SCH ×2 (09:09→21:42)
[2023-04-09] MEDS: ASCORBIC ACID 500 MG TABLET GT SCH (09:09)
[2023-04-09] MEDS: FINASTERIDE 5 MG TABLET GT SCH (09:09)
[2023-04-09] MEDS: DULOXETINE 20 MG CAPSULE.DR GT SCH (09:09)
[2023-04-09] MEDS: HYDROGEN PEROXIDE 3% 118 ML BOTTLE TP SCH ×2 (09:26→21:13)
[2023-04-09 20:16] VITALS: TEMP 98.5
[2023-04-09] MEDS: PROTEIN SUPPLEMENT (PROSTAT) 30 ML LIQUID GT SCH (21:42)
[2023-04-09] MEDS: MULTIVIT, IRON, MIN NO. 8, FA TABLET GT SCH (21:42)
[2023-04-10] MEDS: SIMETHICONE 80 MG TAB.CHEW GT SCH ×4 (00:41→18:07)
[2023-04-10] MEDS: BACLOFEN 10 MG TABLET GT SCH ×3 (06:53→22:05)
[2023-04-10] MEDS: ACIDOPHILUS/BULGARICUS CHEW TAB GT SCH ×2 (06:53→18:07)
[2023-04-10] MEDS: NUTRISOURCE FIBER 4 GM PACKET GT SCH ×2 (06:54→18:07)
[2023-04-10] MEDS: OMEPRAZOLE 20 MG CAPSULE.DR GT SCH (06:54)
[2023-04-10] MEDS: HYDROGEN PEROXIDE 3% 118 ML BOTTLE TP SCH ×2 (07:20→21:00)
[2023-04-10 07:22] VITALS: TEMP 98.7
[2023-04-10] MEDS: ASCORBIC ACID 500 MG TABLET GT SCH (08:30)
[2023-04-10] MEDS: VITAMINS A AND D OINT 42 GM TUBE TP SCH (08:30)
[2023-04-10] MEDS: DULOXETINE 20 MG CAPSULE.DR GT SCH (08:30)
[2023-04-10] MEDS: REMEDY ESSENTIAL ZINC PASTE 113 GM TP SCH ×3 (08:30→20:29)
[2023-04-10] MEDS: FINASTERIDE 5 MG TABLET GT SCH (08:30)
[2023-04-10] MEDS: PROTEIN SUPPLEMENT (PROSTAT) 30 ML LIQUID GT SCH (20:29)
[2023-04-10] MEDS: MULTIVIT, IRON, MIN NO. 8, FA TABLET GT SCH (20:29)
[2023-04-10 21:00] VITALS: TEMP 98.6
[2023-04-11] MEDS: SIMETHICONE 80 MG TAB.CHEW GT SCH ×5 (00:29→23:12)
[2023-04-11] MEDS: BACLOFEN 10 MG TABLET GT SCH ×3 (06:47→22:00)
[2023-04-11] MEDS: ACIDOPHILUS/BULGARICUS CHEW TAB GT SCH ×2 (06:47→18:01)
[2023-04-11] MEDS: OMEPRAZOLE 20 MG CAPSULE.DR GT SCH (06:47)
[2023-04-11] MEDS: NUTRISOURCE FIBER 4 GM PACKET GT SCH ×2 (06:47→18:02)
[2023-04-11] MEDS: JEVITY 1.2 1000 ML LIQUID GT PRN (07:09)
[2023-04-11 08:00] VITALS: TEMP 98.9
[2023-04-11] MEDS: HYDROGEN PEROXIDE 3% 118 ML BOTTLE TP SCH ×2 (08:17→21:00)
[2023-04-11] MEDS: REMEDY ESSENTIAL ZINC PASTE 113 GM TP SCH ×4 (08:29→20:46)
[2023-04-11] MEDS: DULOXETINE 20 MG CAPSULE.DR GT SCH (08:29)
[2023-04-11] MEDS: ASCORBIC ACID 500 MG TABLET GT SCH (08:29)
[2023-04-11] MEDS: FINASTERIDE 5 MG TABLET GT SCH (08:29)
[2023-04-11] MEDS: VITAMINS A AND D OINT 42 GM TUBE TP SCH (08:30)
[2023-04-11 19:58] VITALS: TEMP 98.8
[2023-04-11] MEDS: PROTEIN SUPPLEMENT (PROSTAT) 30 ML LIQUID GT SCH (20:46)
[2023-04-11] MEDS: MULTIVIT, IRON, MIN NO. 8, FA TABLET GT SCH (20:46)
[2023-04-12] MEDS: JEVITY 1.2 1000 ML LIQUID GT PRN (05:41)
[2023-04-12] MEDS: SIMETHICONE 80 MG TAB.CHEW GT SCH ×3 (05:41→17:18)
[2023-04-12] MEDS: BACLOFEN 10 MG TABLET GT SCH ×3 (05:41→22:31)
[2023-04-12] MEDS: OMEPRAZOLE 20 MG CAPSULE.DR GT SCH (05:41)
[2023-04-12] MEDS: NUTRISOURCE FIBER 4 GM PACKET GT SCH ×2 (05:41→17:18)
[2023-04-12] MEDS: ACIDOPHILUS/BULGARICUS CHEW TAB GT SCH ×2 (05:41→17:18)
[2023-04-12] MEDS: HYDROGEN PEROXIDE 3% 118 ML BOTTLE TP SCH ×2 (07:25→21:00)
[2023-04-12 08:00] VITALS: TEMP 98
[2023-04-12] MEDS: REMEDY ESSENTIAL ZINC PASTE 113 GM TP SCH ×4 (08:24→20:50)
[2023-04-12] MEDS: FINASTERIDE 5 MG TABLET GT SCH (08:24)
[2023-04-12] MEDS: DULOXETINE 20 MG CAPSULE.DR GT SCH (08:24)
[2023-04-12] MEDS: VITAMINS A AND D OINT 42 GM TUBE TP SCH (08:24)
[2023-04-12] MEDS: ASCORBIC ACID 500 MG TABLET GT SCH (08:24)
[2023-04-12 20:03] VITALS: TEMP 98.3
[2023-04-12] MEDS: PROTEIN SUPPLEMENT (PROSTAT) 30 ML LIQUID GT SCH (20:49)
[2023-04-12] MEDS: MULTIVIT, IRON, MIN NO. 8, FA TABLET GT SCH (20:50)
[2023-04-13] MEDS: SIMETHICONE 80 MG TAB.CHEW GT SCH ×4 (00:21→17:13)
[2023-04-13] MEDS: JEVITY 1.2 1000 ML LIQUID GT PRN ×2 (00:21→18:51)
[2023-04-13] MEDS: NUTRISOURCE FIBER 4 GM PACKET GT SCH ×2 (05:45→17:13)
[2023-04-13] MEDS: BACLOFEN 10 MG TABLET GT SCH ×3 (05:45→22:17)
[2023-04-13] MEDS: ACIDOPHILUS/BULGARICUS CHEW TAB GT SCH ×2 (05:45→17:13)
[2023-04-13] MEDS: OMEPRAZOLE 20 MG CAPSULE.DR GT SCH (05:45)
[2023-04-13] MEDS: HYDROGEN PEROXIDE 3% 118 ML BOTTLE TP SCH ×2 (07:20→21:00)
[2023-04-13 07:43] VITALS: TEMP 98.7
[2023-04-13] MEDS: FINASTERIDE 5 MG TABLET GT SCH (09:08)
[2023-04-13] MEDS: DULOXETINE 20 MG CAPSULE.DR GT SCH (09:08)
[2023-04-13] MEDS: ASCORBIC ACID 500 MG TABLET GT SCH (09:09)
[2023-04-13] MEDS: REMEDY ESSENTIAL ZINC PASTE 113 GM TP SCH ×4 (09:10→20:44)
[2023-04-13] MEDS: VITAMINS A AND D OINT 42 GM TUBE TP SCH (09:10)
[2023-04-13] MEDS: HARRIS FLUSH ENEMA PR PRN (19:06)
[2023-04-13 20:16] VITALS: TEMP 99
[2023-04-13] MEDS: MULTIVIT, IRON, MIN NO. 8, FA TABLET GT SCH (20:43)
[2023-04-13] MEDS: PROTEIN SUPPLEMENT (PROSTAT) 30 ML LIQUID GT SCH (20:43)
[2023-04-14] MEDS: NUTRISOURCE FIBER 4 GM PACKET GT SCH ×2 (05:31→17:22)
[2023-04-14] MEDS: ACIDOPHILUS/BULGARICUS CHEW TAB GT SCH ×2 (05:31→17:22)
[2023-04-14] MEDS: BACLOFEN 10 MG TABLET GT SCH ×3 (05:31→21:57)
[2023-04-14] MEDS: SIMETHICONE 80 MG TAB.CHEW GT SCH ×4 (05:31→17:22)
[2023-04-14] MEDS: OMEPRAZOLE 20 MG CAPSULE.DR GT SCH (05:31)
[2023-04-14 07:27] VITALS: TEMP 98.5
[2023-04-14] MEDS: REMEDY ESSENTIAL ZINC PASTE 113 GM TP SCH ×4 (09:46→20:25)
[2023-04-14] MEDS: ASCORBIC ACID 500 MG TABLET GT SCH (09:46)
[2023-04-14] MEDS: VITAMINS A AND D OINT 42 GM TUBE TP SCH (09:46)
[2023-04-14] MEDS: HYDROGEN PEROXIDE 3% 118 ML BOTTLE TP SCH ×2 (09:46→21:00)
[2023-04-14] MEDS: FINASTERIDE 5 MG TABLET GT SCH (09:47)
[2023-04-14] MEDS: DULOXETINE 20 MG CAPSULE.DR GT SCH (09:49)
[2023-04-14 10:00] VITALS: O2SAT 98
[2023-04-14 19:56] VITALS: TEMP 97.7
[2023-04-14] MEDS: PROTEIN SUPPLEMENT (PROSTAT) 30 ML LIQUID GT SCH (20:25)
[2023-04-14] MEDS: MULTIVIT, IRON, MIN NO. 8, FA TABLET GT SCH (20:25)
[2023-04-15] MEDS: SIMETHICONE 80 MG TAB.CHEW GT SCH ×4 (00:08→17:19)
[2023-04-15] MEDS: JEVITY 1.2 1000 ML LIQUID GT PRN (04:41)
[2023-04-15] MEDS: BACLOFEN 10 MG TABLET GT SCH ×3 (06:09→22:01)
[2023-04-15] MEDS: NUTRISOURCE FIBER 4 GM PACKET GT SCH ×2 (06:09→17:20)
[2023-04-15] MEDS: ACIDOPHILUS/BULGARICUS CHEW TAB GT SCH ×2 (06:09→17:19)
[2023-04-15] MEDS: OMEPRAZOLE 20 MG CAPSULE.DR GT SCH (06:09)
[2023-04-15 07:30] VITALS: TEMP 99.7
[2023-04-15] MEDS: HYDROGEN PEROXIDE 3% 118 ML BOTTLE TP SCH ×2 (08:14→19:12)
[2023-04-15] MEDS: ASCORBIC ACID 500 MG TABLET GT SCH (09:16)
[2023-04-15] MEDS: REMEDY ESSENTIAL ZINC PASTE 113 GM TP SCH ×4 (09:16→20:17)
[2023-04-15] MEDS: FINASTERIDE 5 MG TABLET GT SCH (09:16)
[2023-04-15] MEDS: DULOXETINE 20 MG CAPSULE.DR GT SCH (09:16)
[2023-04-15] MEDS: VITAMINS A AND D OINT 42 GM TUBE TP SCH (09:16)
[2023-04-15 20:00] VITALS: TEMP 98
[2023-04-15] MEDS: PROTEIN SUPPLEMENT (PROSTAT) 30 ML LIQUID GT SCH (20:17)
[2023-04-15] MEDS: MULTIVIT, IRON, MIN NO. 8, FA TABLET GT SCH (20:17)
[2023-04-16] MEDS: SIMETHICONE 80 MG TAB.CHEW GT SCH ×4 (00:11→17:33)
[2023-04-16] MEDS: JEVITY 1.2 1000 ML LIQUID GT PRN (00:12)
[2023-04-16] MEDS: HARRIS FLUSH ENEMA PR PRN (04:11)
[2023-04-16] MEDS: OMEPRAZOLE 20 MG CAPSULE.DR GT SCH (05:27)
[2023-04-16] MEDS: BACLOFEN 10 MG TABLET GT SCH ×3 (05:27→21:35)
[2023-04-16] MEDS: ACIDOPHILUS/BULGARICUS CHEW TAB GT SCH ×2 (05:27→17:33)
[2023-04-16] MEDS: NUTRISOURCE FIBER 4 GM PACKET GT SCH ×2 (05:27→17:33)
[2023-04-16 08:01] VITALS: TEMP 98.7
[2023-04-16] MEDS: HYDROGEN PEROXIDE 3% 118 ML BOTTLE TP SCH ×2 (08:36→19:43)
[2023-04-16] MEDS: ASCORBIC ACID 500 MG TABLET GT SCH (09:57)
[2023-04-16] MEDS: REMEDY ESSENTIAL ZINC PASTE 113 GM TP SCH ×4 (09:57→21:35)
[2023-04-16] MEDS: VITAMINS A AND D OINT 42 GM TUBE TP SCH (09:57)
[2023-04-16] MEDS: DULOXETINE 20 MG CAPSULE.DR GT SCH (09:57)
[2023-04-16] MEDS: FINASTERIDE 5 MG TABLET GT SCH (09:57)
[2023-04-16] MEDS: PROTEIN SUPPLEMENT (PROSTAT) 30 ML LIQUID GT SCH (21:35)
[2023-04-16] MEDS: MULTIVIT, IRON, MIN NO. 8, FA TABLET GT SCH (21:35)
[2023-04-16 22:48] VITALS: TEMP 98.8
[2023-04-17] MEDS: BACLOFEN 10 MG TABLET GT SCH ×3 (05:32→22:50)
[2023-04-17] MEDS: OMEPRAZOLE 20 MG CAPSULE.DR GT SCH (05:32)
[2023-04-17] MEDS: NUTRISOURCE FIBER 4 GM PACKET GT SCH ×2 (05:32→17:25)
[2023-04-17] MEDS: SIMETHICONE 80 MG TAB.CHEW GT SCH ×4 (05:32→17:25)
[2023-04-17] MEDS: ACIDOPHILUS/BULGARICUS CHEW TAB GT SCH ×2 (05:32→17:25)
[2023-04-17 07:24] VITALS: TEMP 98.2
[2023-04-17] MEDS: DULOXETINE 20 MG CAPSULE.DR GT SCH (08:15)
[2023-04-17] MEDS: FINASTERIDE 5 MG TABLET GT SCH (08:15)
[2023-04-17] MEDS: REMEDY ESSENTIAL ZINC PASTE 113 GM TP SCH ×4 (08:16→20:26)
[2023-04-17] MEDS: ASCORBIC ACID 500 MG TABLET GT SCH (08:16)
[2023-04-17] MEDS: VITAMINS A AND D OINT 42 GM TUBE TP SCH (08:16)
[2023-04-17] MEDS: HYDROGEN PEROXIDE 3% 118 ML BOTTLE TP SCH ×2 (08:30→19:19)
[2023-04-17 20:20] VITALS: TEMP 97.7
[2023-04-17] MEDS: PROTEIN SUPPLEMENT (PROSTAT) 30 ML LIQUID GT SCH (20:26)
[2023-04-17] MEDS: MULTIVIT, IRON, MIN NO. 8, FA TABLET GT SCH (20:26)
[2023-04-18] MEDS: SIMETHICONE 80 MG TAB.CHEW GT SCH ×5 (00:53→23:26)
[2023-04-18] MEDS: JEVITY 1.2 1000 ML LIQUID GT PRN (04:28)
[2023-04-18] MEDS: OMEPRAZOLE 20 MG CAPSULE.DR GT SCH (05:53)
[2023-04-18] MEDS: NUTRISOURCE FIBER 4 GM PACKET GT SCH ×2 (05:53→17:39)
[2023-04-18] MEDS: ACIDOPHILUS/BULGARICUS CHEW TAB GT SCH ×2 (05:53→17:39)
[2023-04-18] MEDS: BACLOFEN 10 MG TABLET GT SCH ×3 (05:53→22:20)
[2023-04-18 07:41] VITALS: TEMP 97.1
[2023-04-18] MEDS: HYDROGEN PEROXIDE 3% 118 ML BOTTLE TP SCH ×2 (08:57→21:06)
[2023-04-18] MEDS: DULOXETINE 20 MG CAPSULE.DR GT SCH (09:24)
[2023-04-18] MEDS: REMEDY ESSENTIAL ZINC PASTE 113 GM TP SCH ×4 (09:25→20:26)
[2023-04-18] MEDS: ASCORBIC ACID 500 MG TABLET GT SCH (09:25)
[2023-04-18] MEDS: FINASTERIDE 5 MG TABLET GT SCH (09:25)
[2023-04-18] MEDS: VITAMINS A AND D OINT 42 GM TUBE TP SCH (09:25)
[2023-04-18] MEDS: MULTIVIT, IRON, MIN NO. 8, FA TABLET GT SCH (20:26)
[2023-04-18] MEDS: PROTEIN SUPPLEMENT (PROSTAT) 30 ML LIQUID GT SCH (20:26)
[2023-04-18 23:23] VITALS: TEMP 98.3
[2023-04-19] MEDS: JEVITY 1.2 1000 ML LIQUID GT PRN (00:45)
[2023-04-19] MEDS: SIMETHICONE 80 MG TAB.CHEW GT SCH ×3 (05:53→17:29)
[2023-04-19] MEDS: ACIDOPHILUS/BULGARICUS CHEW TAB GT SCH ×2 (05:53→17:29)
[2023-04-19] MEDS: OMEPRAZOLE 20 MG CAPSULE.DR GT SCH (05:53)
[2023-04-19] MEDS: BACLOFEN 10 MG TABLET GT SCH ×3 (05:53→22:27)
[2023-04-19] MEDS: NUTRISOURCE FIBER 4 GM PACKET GT SCH ×2 (05:53→17:29)
[2023-04-19 07:39] VITALS: TEMP 98.1
[2023-04-19] MEDS: DULOXETINE 20 MG CAPSULE.DR GT SCH (08:28)
[2023-04-19] MEDS: FINASTERIDE 5 MG TABLET GT SCH (08:28)
[2023-04-19] MEDS: ASCORBIC ACID 500 MG TABLET GT SCH (08:28)
[2023-04-19] MEDS: VITAMINS A AND D OINT 42 GM TUBE TP SCH (08:29)
[2023-04-19] MEDS: REMEDY ESSENTIAL ZINC PASTE 113 GM TP SCH ×4 (08:29→20:18)
[2023-04-19] MEDS: HYDROGEN PEROXIDE 3% 118 ML BOTTLE TP SCH ×2 (09:20→21:26)
[2023-04-19] MEDS: PROTEIN SUPPLEMENT (PROSTAT) 30 ML LIQUID GT SCH (20:18)
[2023-04-19] MEDS: MULTIVIT, IRON, MIN NO. 8, FA TABLET GT SCH (20:18)
[2023-04-20] MEDS: SIMETHICONE 80 MG TAB.CHEW GT SCH ×5 (00:46→23:38)
[2023-04-20] MEDS: OMEPRAZOLE 20 MG CAPSULE.DR GT SCH (05:54)
[2023-04-20] MEDS: ACIDOPHILUS/BULGARICUS CHEW TAB GT SCH ×2 (05:54→18:08)
[2023-04-20] MEDS: BACLOFEN 10 MG TABLET GT SCH ×3 (05:54→21:30)
[2023-04-20] MEDS: NUTRISOURCE FIBER 4 GM PACKET GT SCH ×2 (05:54→18:08)
[2023-04-20 08:13] VITALS: TEMP 99.6
[2023-04-20] MEDS: REMEDY ESSENTIAL ZINC PASTE 113 GM TP SCH ×4 (09:00→20:34)
[2023-04-20] MEDS: VITAMINS A AND D OINT 42 GM TUBE TP SCH (09:00)
[2023-04-20] MEDS: DULOXETINE 20 MG CAPSULE.DR GT SCH (09:26)
[2023-04-20] MEDS: FINASTERIDE 5 MG TABLET GT SCH (09:26)
[2023-04-20] MEDS: ASCORBIC ACID 500 MG TABLET GT SCH (09:27)
[2023-04-20] MEDS: HYDROGEN PEROXIDE 3% 118 ML BOTTLE TP SCH ×2 (09:35→19:19)
[2023-04-20] MEDS: JEVITY 1.2 1000 ML LIQUID GT PRN (12:45)
[2023-04-20 20:16] VITALS: TEMP 97.3
[2023-04-20] MEDS: PROTEIN SUPPLEMENT (PROSTAT) 30 ML LIQUID GT SCH (20:32)
[2023-04-20] MEDS: MULTIVIT, IRON, MIN NO. 8, FA TABLET GT SCH (20:32)
[2023-04-21] MEDS: SIMETHICONE 80 MG TAB.CHEW GT SCH ×3 (05:24→18:00)
[2023-04-21] MEDS: OMEPRAZOLE 20 MG CAPSULE.DR GT SCH (05:24)
[2023-04-21] MEDS: NUTRISOURCE FIBER 4 GM PACKET GT SCH ×2 (05:24→18:00)
[2023-04-21] MEDS: ACIDOPHILUS/BULGARICUS CHEW TAB GT SCH ×2 (05:24→17:59)
[2023-04-21] MEDS: BACLOFEN 10 MG TABLET GT SCH ×3 (05:24→22:36)
[2023-04-21 08:00] VITALS: TEMP 98.6
[2023-04-21] MEDS: ASCORBIC ACID 500 MG TABLET GT SCH (08:39)
[2023-04-21] MEDS: DULOXETINE 20 MG CAPSULE.DR GT SCH (08:39)
[2023-04-21] MEDS: FINASTERIDE 5 MG TABLET GT SCH (08:39)
[2023-04-21] MEDS: HYDROGEN PEROXIDE 3% 118 ML BOTTLE TP SCH ×2 (08:44→22:42)
[2023-04-21] MEDS: REMEDY ESSENTIAL ZINC PASTE 113 GM TP SCH ×4 (08:44→20:37)
[2023-04-21] MEDS: VITAMINS A AND D OINT 42 GM TUBE TP SCH (08:45)
[2023-04-21] MEDS: PROTEIN SUPPLEMENT (PROSTAT) 30 ML LIQUID GT SCH (20:37)
[2023-04-21] MEDS: MULTIVIT, IRON, MIN NO. 8, FA TABLET GT SCH (20:37)
[2023-04-21 20:54] VITALS: TEMP 98.7
[2023-04-22] MEDS: SIMETHICONE 80 MG TAB.CHEW GT SCH ×4 (00:52→18:37)
[2023-04-22] MEDS: JEVITY 1.2 1000 ML LIQUID GT PRN ×2 (04:03→23:19)
[2023-04-22] MEDS: ACIDOPHILUS/BULGARICUS CHEW TAB GT SCH ×2 (06:19→18:37)
[2023-04-22] MEDS: BACLOFEN 10 MG TABLET GT SCH ×3 (06:19→22:22)
[2023-04-22] MEDS: OMEPRAZOLE 20 MG CAPSULE.DR GT SCH (06:20)
[2023-04-22] MEDS: NUTRISOURCE FIBER 4 GM PACKET GT SCH ×2 (06:20→18:38)
[2023-04-22 07:39] VITALS: TEMP 99.4
[2023-04-22] MEDS: HYDROGEN PEROXIDE 3% 118 ML BOTTLE TP SCH ×2 (09:22→21:11)
[2023-04-22] MEDS: FINASTERIDE 5 MG TABLET GT SCH (09:58)
[2023-04-22] MEDS: DULOXETINE 20 MG CAPSULE.DR GT SCH (09:58)
[2023-04-22] MEDS: ASCORBIC ACID 500 MG TABLET GT SCH (09:59)
[2023-04-22] MEDS: VITAMINS A AND D OINT 42 GM TUBE TP SCH (09:59)
[2023-04-22] MEDS: REMEDY ESSENTIAL ZINC PASTE 113 GM TP SCH ×4 (09:59→21:00)
[2023-04-22] MEDS: HARRIS FLUSH ENEMA PR PRN (13:40)
[2023-04-22 20:19] VITALS: TEMP 98.4
[2023-04-22] MEDS: MULTIVIT, IRON, MIN NO. 8, FA TABLET GT SCH (21:00)
[2023-04-22] MEDS: PROTEIN SUPPLEMENT (PROSTAT) 30 ML LIQUID GT SCH (21:00)
[2023-04-23] MEDS: SIMETHICONE 80 MG TAB.CHEW GT SCH ×4 (00:30→17:40)
[2023-04-23] MEDS: ACIDOPHILUS/BULGARICUS CHEW TAB GT SCH ×2 (05:29→17:40)
[2023-04-23] MEDS: BACLOFEN 10 MG TABLET GT SCH ×3 (05:29→21:35)
[2023-04-23] MEDS: OMEPRAZOLE 20 MG CAPSULE.DR GT SCH (05:29)
[2023-04-23] MEDS: NUTRISOURCE FIBER 4 GM PACKET GT SCH ×2 (05:29→17:40)
[2023-04-23 07:29] VITALS: TEMP 99.4
[2023-04-23] MEDS: VITAMINS A AND D OINT 42 GM TUBE TP SCH (09:12)
[2023-04-23] MEDS: REMEDY ESSENTIAL ZINC PASTE 113 GM TP SCH ×4 (09:12→21:35)
[2023-04-23] MEDS: ASCORBIC ACID 500 MG TABLET GT SCH (09:12)
[2023-04-23] MEDS: DULOXETINE 20 MG CAPSULE.DR GT SCH (09:12)
[2023-04-23] MEDS: FINASTERIDE 5 MG TABLET GT SCH (09:12)
[2023-04-23] MEDS: HYDROGEN PEROXIDE 3% 118 ML BOTTLE TP SCH ×2 (09:16→19:24)
[2023-04-23 19:57] VITALS: TEMP 98.7
[2023-04-23] MEDS: PROTEIN SUPPLEMENT (PROSTAT) 30 ML LIQUID GT SCH (21:34)
[2023-04-23] MEDS: MULTIVIT, IRON, MIN NO. 8, FA TABLET GT SCH (21:35)
[2023-04-24] MEDS: SIMETHICONE 80 MG TAB.CHEW GT SCH ×4 (00:48→17:18)
[2023-04-24] MEDS: OMEPRAZOLE 20 MG CAPSULE.DR GT SCH (06:04)
[2023-04-24] MEDS: ACIDOPHILUS/BULGARICUS CHEW TAB GT SCH ×2 (06:04→17:18)
[2023-04-24] MEDS: NUTRISOURCE FIBER 4 GM PACKET GT SCH ×2 (06:04→17:18)
[2023-04-24] MEDS: BACLOFEN 10 MG TABLET GT SCH ×3 (06:04→21:37)
[2023-04-24 07:29] VITALS: TEMP 98.6
[2023-04-24] MEDS: VITAMINS A AND D OINT 42 GM TUBE TP SCH (08:46)
[2023-04-24] MEDS: DULOXETINE 20 MG CAPSULE.DR GT SCH (08:46)
[2023-04-24] MEDS: REMEDY ESSENTIAL ZINC PASTE 113 GM TP SCH ×3 (08:46→21:37)
[2023-04-24] MEDS: ASCORBIC ACID 500 MG TABLET GT SCH (08:46)
[2023-04-24] MEDS: FINASTERIDE 5 MG TABLET GT SCH (08:46)
[2023-04-24] MEDS: HYDROGEN PEROXIDE 3% 118 ML BOTTLE TP SCH ×2 (09:35→19:07)
[2023-04-24 19:49] VITALS: TEMP 98.8
[2023-04-24] MEDS: PROTEIN SUPPLEMENT (PROSTAT) 30 ML LIQUID GT SCH (21:37)
[2023-04-24] MEDS: MULTIVIT, IRON, MIN NO. 8, FA TABLET GT SCH (21:37)
[2023-04-25] MEDS: JEVITY 1.2 1000 ML LIQUID GT PRN (01:27)
[2023-04-25] MEDS: HARRIS FLUSH ENEMA PR PRN (02:00)
[2023-04-25] MEDS: NUTRISOURCE FIBER 4 GM PACKET GT SCH ×2 (06:05→17:33)
[2023-04-25] MEDS: BACLOFEN 10 MG TABLET GT SCH ×3 (06:05→21:16)
[2023-04-25] MEDS: ACIDOPHILUS/BULGARICUS CHEW TAB GT SCH ×2 (06:05→17:33)
[2023-04-25] MEDS: SIMETHICONE 80 MG TAB.CHEW GT SCH ×4 (06:05→17:33)
[2023-04-25] MEDS: OMEPRAZOLE 20 MG CAPSULE.DR GT SCH (06:05)
[2023-04-25 08:00] VITALS: TEMP 98.2
[2023-04-25] MEDS: HYDROGEN PEROXIDE 3% 118 ML BOTTLE TP SCH ×2 (09:00→21:01)
[2023-04-25] MEDS: VITAMINS A AND D OINT 42 GM TUBE TP SCH (09:04)
[2023-04-25] MEDS: FINASTERIDE 5 MG TABLET GT SCH (09:04)
[2023-04-25] MEDS: DULOXETINE 20 MG CAPSULE.DR GT SCH (09:04)
[2023-04-25] MEDS: ASCORBIC ACID 500 MG TABLET GT SCH (09:04)
[2023-04-25] MEDS: REMEDY ESSENTIAL ZINC PASTE 113 GM TP SCH ×2 (09:04→21:16)
[2023-04-25 19:50] VITALS: TEMP 98.6
[2023-04-25 19:52] VITALS: TEMP 97.8
[2023-04-25] MEDS: PROTEIN SUPPLEMENT (PROSTAT) 30 ML LIQUID GT SCH (21:14)
[2023-04-25] MEDS: MULTIVIT, IRON, MIN NO. 8, FA TABLET GT SCH (21:15)
[2023-04-26] MEDS: JEVITY 1.2 1000 ML LIQUID GT PRN (02:15)
[2023-04-26] MEDS: HARRIS FLUSH ENEMA PR PRN (04:00)
[2023-04-26] MEDS: SIMETHICONE 80 MG TAB.CHEW GT SCH ×4 (06:06→18:12)
[2023-04-26] MEDS: NUTRISOURCE FIBER 4 GM PACKET GT SCH ×2 (06:06→18:12)
[2023-04-26] MEDS: ACIDOPHILUS/BULGARICUS CHEW TAB GT SCH ×2 (06:06→18:12)
[2023-04-26] MEDS: BACLOFEN 10 MG TABLET GT SCH ×3 (06:06→21:39)
[2023-04-26] MEDS: OMEPRAZOLE 20 MG CAPSULE.DR GT SCH (06:06)
[2023-04-26 08:55] VITALS: TEMP 97.8
[2023-04-26] MEDS: HYDROGEN PEROXIDE 3% 118 ML BOTTLE TP SCH ×2 (08:59→19:07)
[2023-04-26] MEDS: FINASTERIDE 5 MG TABLET GT SCH (09:43)
[2023-04-26] MEDS: VITAMINS A AND D OINT 42 GM TUBE TP SCH (09:43)
[2023-04-26] MEDS: REMEDY ESSENTIAL ZINC PASTE 113 GM TP SCH ×2 (09:43→21:39)
[2023-04-26] MEDS: ASCORBIC ACID 500 MG TABLET GT SCH (09:43)
[2023-04-26] MEDS: DULOXETINE 20 MG CAPSULE.DR GT SCH (09:43)
[2023-04-26 20:00] VITALS: TEMP 99
[2023-04-26] MEDS: PROTEIN SUPPLEMENT (PROSTAT) 30 ML LIQUID GT SCH (21:36)
[2023-04-26] MEDS: MULTIVIT, IRON, MIN NO. 8, FA TABLET GT SCH (21:37)
[2023-04-27] MEDS: SIMETHICONE 80 MG TAB.CHEW GT SCH ×4 (00:39→17:37)
[2023-04-27] MEDS: MAGNESIUM HYDROXIDE 30 ML LIQUID UDC GT PRN (02:00)
[2023-04-27] MEDS: NUTRISOURCE FIBER 4 GM PACKET GT SCH ×2 (05:32→17:37)
[2023-04-27] MEDS: ACIDOPHILUS/BULGARICUS CHEW TAB GT SCH ×2 (05:32→17:37)
[2023-04-27] MEDS: OMEPRAZOLE 20 MG CAPSULE.DR GT SCH (05:32)
[2023-04-27] MEDS: BACLOFEN 10 MG TABLET GT SCH ×3 (05:32→21:35)
[2023-04-27] MEDS: JEVITY 1.2 1000 ML LIQUID GT PRN (05:34)
[2023-04-27] MEDS: HYDROGEN PEROXIDE 3% 118 ML BOTTLE TP SCH ×2 (07:36→21:32)
[2023-04-27 08:00] VITALS: TEMP 98
[2023-04-27] MEDS: ASCORBIC ACID 500 MG TABLET GT SCH (08:56)
[2023-04-27] MEDS: REMEDY ESSENTIAL ZINC PASTE 113 GM TP SCH ×2 (08:56→21:35)
[2023-04-27] MEDS: DULOXETINE 20 MG CAPSULE.DR GT SCH (08:56)
[2023-04-27] MEDS: VITAMINS A AND D OINT 42 GM TUBE TP SCH (08:56)
[2023-04-27] MEDS: FINASTERIDE 5 MG TABLET GT SCH (08:56)
[2023-04-27 20:00] VITALS: TEMP 98.5
[2023-04-27] MEDS: MULTIVIT, IRON, MIN NO. 8, FA TABLET GT SCH (21:35)
[2023-04-27] MEDS: PROTEIN SUPPLEMENT (PROSTAT) 30 ML LIQUID GT SCH (21:35)
[2023-04-28] MEDS: JEVITY 1.2 1000 ML LIQUID GT PRN (02:25)
[2023-04-28] MEDS: SIMETHICONE 80 MG TAB.CHEW GT SCH ×4 (05:45→17:19)
[2023-04-28] MEDS: OMEPRAZOLE 20 MG CAPSULE.DR GT SCH (05:45)
[2023-04-28] MEDS: ACIDOPHILUS/BULGARICUS CHEW TAB GT SCH ×2 (05:45→17:19)
[2023-04-28] MEDS: NUTRISOURCE FIBER 4 GM PACKET GT SCH ×2 (05:45→17:19)
[2023-04-28] MEDS: BACLOFEN 10 MG TABLET GT SCH ×3 (05:45→22:00)
[2023-04-28 08:00] VITALS: TEMP 98
[2023-04-28] MEDS: HYDROGEN PEROXIDE 3% 118 ML BOTTLE TP SCH ×2 (09:12→21:00)
[2023-04-28] MEDS: ASCORBIC ACID 500 MG TABLET GT SCH (09:22)
[2023-04-28] MEDS: VITAMINS A AND D OINT 42 GM TUBE TP SCH (09:22)
[2023-04-28] MEDS: DULOXETINE 20 MG CAPSULE.DR GT SCH (09:22)
[2023-04-28] MEDS: REMEDY ESSENTIAL ZINC PASTE 113 GM TP SCH ×2 (09:22→20:38)
[2023-04-28] MEDS: FINASTERIDE 5 MG TABLET GT SCH (09:22)
[2023-04-28 20:23] VITALS: TEMP 99.1
[2023-04-28] MEDS: MULTIVIT, IRON, MIN NO. 8, FA TABLET GT SCH (20:38)
[2023-04-28] MEDS: PROTEIN SUPPLEMENT (PROSTAT) 30 ML LIQUID GT SCH (20:38)
[2023-04-29] MEDS: SIMETHICONE 80 MG TAB.CHEW GT SCH ×4 (00:14→17:15)
[2023-04-29] MEDS: OMEPRAZOLE 20 MG CAPSULE.DR GT SCH (06:58)
[2023-04-29] MEDS: NUTRISOURCE FIBER 4 GM PACKET GT SCH ×2 (06:58→17:29)
[2023-04-29] MEDS: BACLOFEN 10 MG TABLET GT SCH ×3 (06:58→22:13)
[2023-04-29] MEDS: ACIDOPHILUS/BULGARICUS CHEW TAB GT SCH ×2 (06:58→17:15)
[2023-04-29 07:31] VITALS: TEMP 98.8
[2023-04-29] MEDS: REMEDY ESSENTIAL ZINC PASTE 113 GM TP SCH ×2 (08:52→20:30)
[2023-04-29] MEDS: VITAMINS A AND D OINT 42 GM TUBE TP SCH (08:52)
[2023-04-29] MEDS: ASCORBIC ACID 500 MG TABLET GT SCH (08:52)
[2023-04-29] MEDS: FINASTERIDE 5 MG TABLET GT SCH (08:52)
[2023-04-29] MEDS: DULOXETINE 20 MG CAPSULE.DR GT SCH (08:52)
[2023-04-29] MEDS: HYDROGEN PEROXIDE 3% 118 ML BOTTLE TP SCH ×2 (09:20→20:12)
[2023-04-29] MEDS: JEVITY 1.2 1000 ML LIQUID GT PRN (18:28)
[2023-04-29 20:05] VITALS: TEMP 98.9
[2023-04-29] MEDS: PROTEIN SUPPLEMENT (PROSTAT) 30 ML LIQUID GT SCH (20:30)
[2023-04-29] MEDS: MULTIVIT, IRON, MIN NO. 8, FA TABLET GT SCH (20:30)
[2023-04-30] MEDS: SIMETHICONE 80 MG TAB.CHEW GT SCH ×4 (00:02→17:45)
[2023-04-30] MEDS: NUTRISOURCE FIBER 4 GM PACKET GT SCH ×2 (05:25→17:45)
[2023-04-30] MEDS: ACIDOPHILUS/BULGARICUS CHEW TAB GT SCH ×2 (05:25→17:45)
[2023-04-30] MEDS: BACLOFEN 10 MG TABLET GT SCH ×3 (05:25→21:56)
[2023-04-30] MEDS: OMEPRAZOLE 20 MG CAPSULE.DR GT SCH (05:25)
[2023-04-30 07:26] VITALS: TEMP 99.7
[2023-04-30] MEDS: DULOXETINE 20 MG CAPSULE.DR GT SCH (08:54)
[2023-04-30] MEDS: ASCORBIC ACID 500 MG TABLET GT SCH (09:04)
[2023-04-30] MEDS: VITAMINS A AND D OINT 42 GM TUBE TP SCH (09:04)
[2023-04-30] MEDS: REMEDY ESSENTIAL ZINC PASTE 113 GM TP SCH ×2 (09:04→20:33)
[2023-04-30] MEDS: FINASTERIDE 5 MG TABLET GT SCH (09:04)
[2023-04-30] MEDS: HYDROGEN PEROXIDE 3% 118 ML BOTTLE TP SCH ×2 (09:40→21:00)
[2023-04-30] MEDS: NEOMY/BACITRA/POLYMYXIN B OINT UD PACKET TP SCH (11:54)
[2023-04-30] MEDS: JEVITY 1.2 1000 ML LIQUID GT PRN (12:46)
[2023-04-30 19:37] VITALS: TEMP 98.7
[2023-04-30] MEDS: MULTIVIT, IRON, MIN NO. 8, FA TABLET GT SCH (20:33)
[2023-04-30] MEDS: PROTEIN SUPPLEMENT (PROSTAT) 30 ML LIQUID GT SCH (20:33)
[2023-05-01] MEDS: SIMETHICONE 80 MG TAB.CHEW GT SCH ×5 (00:45→23:08)
[2023-05-01] MEDS: NUTRISOURCE FIBER 4 GM PACKET GT SCH ×2 (06:56→17:26)
[2023-05-01] MEDS: JEVITY 1.2 1000 ML LIQUID GT PRN (06:56)
[2023-05-01] MEDS: ACIDOPHILUS/BULGARICUS CHEW TAB GT SCH ×2 (06:56→17:26)
[2023-05-01] MEDS: BACLOFEN 10 MG TABLET GT SCH ×3 (06:56→22:02)
[2023-05-01] MEDS: OMEPRAZOLE 20 MG CAPSULE.DR GT SCH (06:56)
[2023-05-01 07:26] VITALS: TEMP 99.2
[2023-05-01 07:27] VITALS: TEMP 98
[2023-05-01] MEDS: HYDROGEN PEROXIDE 3% 118 ML BOTTLE TP SCH ×2 (07:28→19:03)
[2023-05-01] MEDS: DULOXETINE 20 MG CAPSULE.DR GT SCH (08:59)
[2023-05-01] MEDS: FINASTERIDE 5 MG TABLET GT SCH (09:00)
[2023-05-01] MEDS: ASCORBIC ACID 500 MG TABLET GT SCH (09:00)
[2023-05-01] MEDS: NEOMY/BACITRA/POLYMYXIN B OINT UD PACKET TP SCH (09:02)
[2023-05-01] MEDS: REMEDY ESSENTIAL ZINC PASTE 113 GM TP SCH ×2 (09:02→20:15)
[2023-05-01] MEDS: VITAMINS A AND D OINT 42 GM TUBE TP SCH (09:02)
[2023-05-01 20:00] VITALS: TEMP 98.9
[2023-05-01] MEDS: PROTEIN SUPPLEMENT (PROSTAT) 30 ML LIQUID GT SCH (20:15)
[2023-05-01] MEDS: MULTIVIT, IRON, MIN NO. 8, FA TABLET GT SCH (20:15)
[2023-05-02] MEDS: ACIDOPHILUS/BULGARICUS CHEW TAB GT SCH ×2 (01:26→17:36)
[2023-05-02] MEDS: JEVITY 1.2 1000 ML LIQUID GT PRN (06:39)
[2023-05-02] MEDS: OMEPRAZOLE 20 MG CAPSULE.DR GT SCH (06:39)
[2023-05-02] MEDS: SIMETHICONE 80 MG TAB.CHEW GT SCH ×4 (06:39→22:09)
[2023-05-02] MEDS: BACLOFEN 10 MG TABLET GT SCH ×3 (06:39→22:08)
[2023-05-02] MEDS: NUTRISOURCE FIBER 4 GM PACKET GT SCH ×2 (06:39→17:36)
[2023-05-02 07:26] VITALS: TEMP 98.7
[2023-05-02] MEDS: HYDROGEN PEROXIDE 3% 118 ML BOTTLE TP SCH ×2 (09:00→21:00)
[2023-05-02] MEDS: NEOMY/BACITRA/POLYMYXIN B OINT UD PACKET TP SCH (09:40)
[2023-05-02] MEDS: REMEDY ESSENTIAL ZINC PASTE 113 GM TP SCH ×2 (09:40→21:00)
[2023-05-02] MEDS: DULOXETINE 20 MG CAPSULE.DR GT SCH (09:40)
[2023-05-02] MEDS: FINASTERIDE 5 MG TABLET GT SCH (09:40)
[2023-05-02] MEDS: VITAMINS A AND D OINT 42 GM TUBE TP SCH (09:40)
[2023-05-02] MEDS: ASCORBIC ACID 500 MG TABLET GT SCH (09:40)
[2023-05-02 19:49] VITALS: TEMP 98.6
[2023-05-02] MEDS: MULTIVIT, IRON, MIN NO. 8, FA TABLET GT SCH (21:00)
[2023-05-02] MEDS: PROTEIN SUPPLEMENT (PROSTAT) 30 ML LIQUID GT SCH (21:00)
[2023-05-03] MEDS: ACIDOPHILUS/BULGARICUS CHEW TAB GT SCH ×2 (05:39→17:59)
[2023-05-03] MEDS: NUTRISOURCE FIBER 4 GM PACKET GT SCH ×2 (05:39→18:00)
[2023-05-03] MEDS: OMEPRAZOLE 20 MG CAPSULE.DR GT SCH (05:39)
[2023-05-03] MEDS: SIMETHICONE 80 MG TAB.CHEW GT SCH ×3 (05:39→17:59)
[2023-05-03] MEDS: BACLOFEN 10 MG TABLET GT SCH ×3 (05:39→22:01)
[2023-05-03 07:48] VITALS: TEMP 98.3
[2023-05-03] MEDS: DULOXETINE 20 MG CAPSULE.DR GT SCH (08:21)
[2023-05-03] MEDS: FINASTERIDE 5 MG TABLET GT SCH (08:22)
[2023-05-03] MEDS: REMEDY ESSENTIAL ZINC PASTE 113 GM TP SCH ×2 (08:22→21:00)
[2023-05-03] MEDS: ASCORBIC ACID 500 MG TABLET GT SCH (08:22)
[2023-05-03] MEDS: VITAMINS A AND D OINT 42 GM TUBE TP SCH (08:22)
[2023-05-03] MEDS: HYDROGEN PEROXIDE 3% 118 ML BOTTLE TP SCH ×2 (08:43→19:07)
[2023-05-03] MEDS: NEOMY/BACITRA/POLYMYXIN B OINT UD PACKET TP SCH (09:00)
[2023-05-03] MEDS: JEVITY 1.2 1000 ML LIQUID GT PRN (18:00)
[2023-05-03 20:27] VITALS: TEMP 98.2
[2023-05-03] MEDS: MULTIVIT, IRON, MIN NO. 8, FA TABLET GT SCH (21:00)
[2023-05-03] MEDS: PROTEIN SUPPLEMENT (PROSTAT) 30 ML LIQUID GT SCH (21:00)
[2023-05-04] MEDS: SIMETHICONE 80 MG TAB.CHEW GT SCH ×5 (00:02→22:48)
[2023-05-04] MEDS: OMEPRAZOLE 20 MG CAPSULE.DR GT SCH (05:36)
[2023-05-04] MEDS: ACIDOPHILUS/BULGARICUS CHEW TAB GT SCH ×2 (05:36→18:07)
[2023-05-04] MEDS: NUTRISOURCE FIBER 4 GM PACKET GT SCH ×2 (05:36→18:07)
[2023-05-04] MEDS: BACLOFEN 10 MG TABLET GT SCH ×3 (05:36→22:48)
[2023-05-04 07:37] VITALS: TEMP 98
[2023-05-04] MEDS: ASCORBIC ACID 500 MG TABLET GT SCH (08:58)
[2023-05-04] MEDS: REMEDY ESSENTIAL ZINC PASTE 113 GM TP SCH ×2 (08:58→21:00)
[2023-05-04] MEDS: VITAMINS A AND D OINT 42 GM TUBE TP SCH (08:58)
[2023-05-04] MEDS: FINASTERIDE 5 MG TABLET GT SCH (08:58)
[2023-05-04] MEDS: NEOMY/BACITRA/POLYMYXIN B OINT UD PACKET TP SCH (08:58)
[2023-05-04] MEDS: DULOXETINE 20 MG CAPSULE.DR GT SCH (08:58)
[2023-05-04] MEDS: HYDROGEN PEROXIDE 3% 118 ML BOTTLE TP SCH ×2 (09:00→19:06)
[2023-05-04 19:48] VITALS: TEMP 98.4
[2023-05-04] MEDS: PROTEIN SUPPLEMENT (PROSTAT) 30 ML LIQUID GT SCH (21:00)
[2023-05-04] MEDS: MULTIVIT, IRON, MIN NO. 8, FA TABLET GT SCH (21:00)
[2023-05-04] MEDS: HARRIS FLUSH ENEMA PR PRN (22:47)
[2023-05-05] MEDS: JEVITY 1.2 1000 ML LIQUID GT PRN (01:41)
[2023-05-05] MEDS: ACIDOPHILUS/BULGARICUS CHEW TAB GT SCH ×2 (05:40→17:24)
[2023-05-05] MEDS: BACLOFEN 10 MG TABLET GT SCH ×3 (05:40→22:40)
[2023-05-05] MEDS: OMEPRAZOLE 20 MG CAPSULE.DR GT SCH (05:41)
[2023-05-05] MEDS: NUTRISOURCE FIBER 4 GM PACKET GT SCH ×2 (05:41→17:24)
[2023-05-05] MEDS: SIMETHICONE 80 MG TAB.CHEW GT SCH ×3 (05:42→17:24)
[2023-05-05] MEDS: HYDROGEN PEROXIDE 3% 118 ML BOTTLE TP SCH ×2 (07:20→21:00)
[2023-05-05 08:00] VITALS: TEMP 98.2
[2023-05-05] MEDS: NEOMY/BACITRA/POLYMYXIN B OINT UD PACKET TP SCH (09:00)
[2023-05-05] MEDS: ASCORBIC ACID 500 MG TABLET GT SCH (09:04)
[2023-05-05] MEDS: FINASTERIDE 5 MG TABLET GT SCH (09:04)
[2023-05-05] MEDS: DULOXETINE 20 MG CAPSULE.DR GT SCH (09:04)
[2023-05-05] MEDS: VITAMINS A AND D OINT 42 GM TUBE TP SCH (09:05)
[2023-05-05] MEDS: REMEDY ESSENTIAL ZINC PASTE 113 GM TP SCH ×2 (09:05→20:31)
[2023-05-05] MEDS: HARRIS FLUSH ENEMA PR PRN (18:08)
[2023-05-05 20:00] VITALS: TEMP 98.7
[2023-05-05] MEDS: PROTEIN SUPPLEMENT (PROSTAT) 30 ML LIQUID GT SCH (20:31)
[2023-05-05] MEDS: MULTIVIT, IRON, MIN NO. 8, FA TABLET GT SCH (20:31)
[2023-05-06] MEDS: ACIDOPHILUS/BULGARICUS CHEW TAB GT SCH ×2 (05:13→17:07)
[2023-05-06] MEDS: SIMETHICONE 80 MG TAB.CHEW GT SCH ×5 (05:13→23:17)
[2023-05-06] MEDS: BACLOFEN 10 MG TABLET GT SCH ×3 (05:13→21:57)
[2023-05-06] MEDS: JEVITY 1.2 1000 ML LIQUID GT PRN ×2 (05:14→19:59)
[2023-05-06] MEDS: NUTRISOURCE FIBER 4 GM PACKET GT SCH ×2 (05:14→17:07)
[2023-05-06] MEDS: OMEPRAZOLE 20 MG CAPSULE.DR GT SCH (05:14)
[2023-05-06 07:36] VITALS: TEMP 98.6
[2023-05-06] MEDS: DULOXETINE 20 MG CAPSULE.DR GT SCH (08:27)
[2023-05-06] MEDS: ASCORBIC ACID 500 MG TABLET GT SCH (08:27)
[2023-05-06] MEDS: FINASTERIDE 5 MG TABLET GT SCH (08:27)
[2023-05-06] MEDS: VITAMINS A AND D OINT 42 GM TUBE TP SCH (08:28)
[2023-05-06] MEDS: NEOMY/BACITRA/POLYMYXIN B OINT UD PACKET TP SCH (08:28)
[2023-05-06] MEDS: REMEDY ESSENTIAL ZINC PASTE 113 GM TP SCH ×2 (08:28→20:33)
[2023-05-06] MEDS: HYDROGEN PEROXIDE 3% 118 ML BOTTLE TP SCH ×2 (09:38→21:11)
[2023-05-06] MEDS: PROTEIN SUPPLEMENT (PROSTAT) 30 ML LIQUID GT SCH (20:33)
[2023-05-06] MEDS: MULTIVIT, IRON, MIN NO. 8, FA TABLET GT SCH (20:33)
[2023-05-06 20:36] VITALS: TEMP 98.8
[2023-05-07] MEDS: OMEPRAZOLE 20 MG CAPSULE.DR GT SCH (05:15)
[2023-05-07] MEDS: SIMETHICONE 80 MG TAB.CHEW GT SCH ×3 (05:15→17:12)
[2023-05-07] MEDS: NUTRISOURCE FIBER 4 GM PACKET GT SCH ×2 (05:15→17:12)
[2023-05-07] MEDS: BACLOFEN 10 MG TABLET GT SCH ×3 (05:15→22:00)
[2023-05-07] MEDS: ACIDOPHILUS/BULGARICUS CHEW TAB GT SCH ×2 (05:15→17:12)
[2023-05-07 07:26] VITALS: TEMP 98.3
[2023-05-07 07:31] LABS: BASOPHILS % (AUTO) 0.6 % (0.0-2.0); EOSINOPHILS # (AUTO) 0.1 K/uL (0.0-0.7); EOSINOPHILS % (AUTO) 2.7 % (0.0-7.0); HEMATOCRIT 40.6 % (36.7-47.1); HEMOGLOBIN 13.5 g/dL (12.5-16.3); LYMPHOCYTES # (AUTO) 1.6 K/uL (0.8-4.8); LYMPHOCYTES % (AUTO) 31.4 % (20.5-51.5); MEAN CORPUSCULAR HEMOGLOBIN 27.7 uug (23.8-33.4); MEAN CORPUSCULAR HGB CONC 33 g/dL (32.5-36.3); MEAN CORPUSCULAR VOLUME 83.5 fL (73.0-96.2); MONOCYTES # (AUTO) 0.4 K/uL (0.1-1.30); NEUTROPHILS # (AUTO) 2.8 K/uL (1.8-8.9); NEUTROPHILS % (AUTO) 56.3 % (38.5-71.5); PLATELET COUNT (AUTO) 255 K/uL (152-348); RED BLOOD CELL COUNT(AUTO) 4.86 MIL/uL (4.06-5.63); RED CELL DISTRIBUTION WIDTH 14.1 % (12.1-16.2)
[2023-05-07 07:35] LABS: CALCIUM 8.8 mg/dL (8.5-10.1); CREATININE 0.7 mg/dL (0.6-1.3); MAGNESIUM 2.1 mg/dL (1.8-2.4); PHOSPHOROUS 3.7 mg/dL (2.5-4.9); POTASSIUM 4.3 mmol/L (3.5-5.1)
[2023-05-07 07:57] LABS: DIFFERENTIAL COMMENT 1
[2023-05-07] MEDS: REMEDY ESSENTIAL ZINC PASTE 113 GM TP SCH ×2 (09:10→21:00)
[2023-05-07] MEDS: ASCORBIC ACID 500 MG TABLET GT SCH (09:10)
[2023-05-07] MEDS: DULOXETINE 20 MG CAPSULE.DR GT SCH (09:10)
[2023-05-07] MEDS: NEOMY/BACITRA/POLYMYXIN B OINT UD PACKET TP SCH (09:10)
[2023-05-07] MEDS: VITAMINS A AND D OINT 42 GM TUBE TP SCH (09:10)
[2023-05-07] MEDS: FINASTERIDE 5 MG TABLET GT SCH (09:10)
[2023-05-07] MEDS: HYDROGEN PEROXIDE 3% 118 ML BOTTLE TP SCH ×2 (09:23→21:00)
[2023-05-07 20:27] VITALS: TEMP 98.7
[2023-05-07] MEDS: PROTEIN SUPPLEMENT (PROSTAT) 30 ML LIQUID GT SCH (21:00)
[2023-05-07] MEDS: MULTIVIT, IRON, MIN NO. 8, FA TABLET GT SCH (21:00)
[2023-05-08] MEDS: SIMETHICONE 80 MG TAB.CHEW GT SCH ×5 (00:16→23:57)
[2023-05-08] MEDS: BACLOFEN 10 MG TABLET GT SCH ×3 (05:21→22:00)
[2023-05-08] MEDS: NUTRISOURCE FIBER 4 GM PACKET GT SCH ×2 (05:21→17:11)
[2023-05-08] MEDS: ACIDOPHILUS/BULGARICUS CHEW TAB GT SCH ×2 (05:21→17:11)
[2023-05-08] MEDS: JEVITY 1.2 1000 ML LIQUID GT PRN (05:22)
[2023-05-08] MEDS: OMEPRAZOLE 20 MG CAPSULE.DR GT SCH (05:22)
[2023-05-08 07:24] VITALS: TEMP 98.3
[2023-05-08] MEDS: HYDROGEN PEROXIDE 3% 118 ML BOTTLE TP SCH ×2 (07:58→21:29)
[2023-05-08] MEDS: VITAMINS A AND D OINT 42 GM TUBE TP SCH (08:41)
[2023-05-08] MEDS: NEOMY/BACITRA/POLYMYXIN B OINT UD PACKET TP SCH (08:41)
[2023-05-08] MEDS: ASCORBIC ACID 500 MG TABLET GT SCH (08:41)
[2023-05-08] MEDS: DULOXETINE 20 MG CAPSULE.DR GT SCH (08:41)
[2023-05-08] MEDS: FINASTERIDE 5 MG TABLET GT SCH (08:41)
[2023-05-08] MEDS: REMEDY ESSENTIAL ZINC PASTE 113 GM TP SCH ×2 (08:41→20:23)
[2023-05-08 20:00] VITALS: TEMP 98.8
[2023-05-08] MEDS: MULTIVIT, IRON, MIN NO. 8, FA TABLET GT SCH (20:23)
[2023-05-08] MEDS: PROTEIN SUPPLEMENT (PROSTAT) 30 ML LIQUID GT SCH (20:23)
[2023-05-09] MEDS: HARRIS FLUSH ENEMA PR PRN (02:28)
[2023-05-09] MEDS: BACLOFEN 10 MG TABLET GT SCH ×3 (06:43→22:03)
[2023-05-09] MEDS: OMEPRAZOLE 20 MG CAPSULE.DR GT SCH (06:43)
[2023-05-09] MEDS: ACIDOPHILUS/BULGARICUS CHEW TAB GT SCH ×2 (06:43→18:50)
[2023-05-09] MEDS: SIMETHICONE 80 MG TAB.CHEW GT SCH ×3 (06:43→18:51)
[2023-05-09] MEDS: NUTRISOURCE FIBER 4 GM PACKET GT SCH ×2 (06:43→18:52)
[2023-05-09] MEDS: NEOMY/BACITRA/POLYMYXIN B OINT UD PACKET TP SCH (09:00)
[2023-05-09] MEDS: REMEDY ESSENTIAL ZINC PASTE 113 GM TP SCH ×2 (09:00→20:24)
[2023-05-09] MEDS: HYDROGEN PEROXIDE 3% 118 ML BOTTLE TP SCH ×2 (09:00→20:25)
[2023-05-09] MEDS: FINASTERIDE 5 MG TABLET GT SCH (09:00)
[2023-05-09] MEDS: ASCORBIC ACID 500 MG TABLET GT SCH (09:00)
[2023-05-09] MEDS: VITAMINS A AND D OINT 42 GM TUBE TP SCH (09:00)
[2023-05-09] MEDS: DULOXETINE 20 MG CAPSULE.DR GT SCH (09:00)
[2023-05-09 14:24] VITALS: TEMP 97.6
[2023-05-09] MEDS: JEVITY 1.2 1000 ML LIQUID GT PRN (15:28)
[2023-05-09] MEDS: MULTIVIT, IRON, MIN NO. 8, FA TABLET GT SCH (20:24)
[2023-05-09] MEDS: PROTEIN SUPPLEMENT (PROSTAT) 30 ML LIQUID GT SCH (20:24)
[2023-05-09 21:05] VITALS: TEMP 100.2
[2023-05-10] MEDS: SIMETHICONE 80 MG TAB.CHEW GT SCH ×4 (00:11→17:37)
[2023-05-10 03:00] VITALS: TEMP 99.2
[2023-05-10] MEDS: BACLOFEN 10 MG TABLET GT SCH ×3 (05:18→22:34)
[2023-05-10] MEDS: OMEPRAZOLE 20 MG CAPSULE.DR GT SCH (05:18)
[2023-05-10] MEDS: ACIDOPHILUS/BULGARICUS CHEW TAB GT SCH ×2 (05:18→17:37)
[2023-05-10] MEDS: NUTRISOURCE FIBER 4 GM PACKET GT SCH ×2 (05:18→17:37)
[2023-05-10 07:47] VITALS: TEMP 98
[2023-05-10] MEDS: ASCORBIC ACID 500 MG TABLET GT SCH (08:03)
[2023-05-10] MEDS: REMEDY ESSENTIAL ZINC PASTE 113 GM TP SCH ×2 (08:03→20:34)
[2023-05-10] MEDS: FINASTERIDE 5 MG TABLET GT SCH (08:03)
[2023-05-10] MEDS: VITAMINS A AND D OINT 42 GM TUBE TP SCH (08:03)
[2023-05-10] MEDS: DULOXETINE 20 MG CAPSULE.DR GT SCH (08:03)
[2023-05-10] MEDS: HYDROGEN PEROXIDE 3% 118 ML BOTTLE TP SCH ×2 (09:54→21:02)
[2023-05-10 20:00] VITALS: TEMP 98.4
[2023-05-10] MEDS: PROTEIN SUPPLEMENT (PROSTAT) 30 ML LIQUID GT SCH (20:34)
[2023-05-10] MEDS: MULTIVIT, IRON, MIN NO. 8, FA TABLET GT SCH (20:34)
[2023-05-11] MEDS: SIMETHICONE 80 MG TAB.CHEW GT SCH ×5 (00:47→23:49)
[2023-05-11] MEDS: BACLOFEN 10 MG TABLET GT SCH ×3 (05:18→22:32)
[2023-05-11] MEDS: ACIDOPHILUS/BULGARICUS CHEW TAB GT SCH ×2 (05:18→17:03)
[2023-05-11] MEDS: NUTRISOURCE FIBER 4 GM PACKET GT SCH ×2 (05:18→17:03)
[2023-05-11] MEDS: OMEPRAZOLE 20 MG CAPSULE.DR GT SCH (05:18)
[2023-05-11 08:00] VITALS: TEMP 97.8
[2023-05-11] MEDS: ASCORBIC ACID 500 MG TABLET GT SCH (08:48)
[2023-05-11] MEDS: REMEDY ESSENTIAL ZINC PASTE 113 GM TP SCH ×2 (08:48→20:23)
[2023-05-11] MEDS: FINASTERIDE 5 MG TABLET GT SCH (08:48)
[2023-05-11] MEDS: VITAMINS A AND D OINT 42 GM TUBE TP SCH (08:48)
[2023-05-11] MEDS: DULOXETINE 20 MG CAPSULE.DR GT SCH (08:48)
[2023-05-11] MEDS: HYDROGEN PEROXIDE 3% 118 ML BOTTLE TP SCH ×2 (09:20→21:54)
[2023-05-11] MEDS: JEVITY 1.2 1000 ML LIQUID GT PRN (14:08)
[2023-05-11] MEDS: MULTIVIT, IRON, MIN NO. 8, FA TABLET GT SCH (20:22)
[2023-05-11] MEDS: PROTEIN SUPPLEMENT (PROSTAT) 30 ML LIQUID GT SCH (20:22)
[2023-05-11] MEDS: ACETAMINOPHEN 650 MG/20 ML UDC- SA PATIENTS-PAIN ONLY GT PRN (20:25)
[2023-05-12] MEDS: NUTRISOURCE FIBER 4 GM PACKET GT SCH ×2 (05:51→17:31)
[2023-05-12] MEDS: OMEPRAZOLE 20 MG CAPSULE.DR GT SCH (05:51)
[2023-05-12] MEDS: BACLOFEN 10 MG TABLET GT SCH ×3 (05:51→22:55)
[2023-05-12] MEDS: ACIDOPHILUS/BULGARICUS CHEW TAB GT SCH ×2 (05:51→17:31)
[2023-05-12] MEDS: SIMETHICONE 80 MG TAB.CHEW GT SCH ×3 (05:51→17:31)
[2023-05-12] MEDS: HYDROGEN PEROXIDE 3% 118 ML BOTTLE TP SCH ×2 (07:23→19:18)
[2023-05-12 07:57] VITALS: TEMP 98.2
[2023-05-12] MEDS: DULOXETINE 20 MG CAPSULE.DR GT SCH (08:32)
[2023-05-12] MEDS: ASCORBIC ACID 500 MG TABLET GT SCH (08:32)
[2023-05-12] MEDS: FINASTERIDE 5 MG TABLET GT SCH (08:32)
[2023-05-12] MEDS: REMEDY ESSENTIAL ZINC PASTE 113 GM TP SCH ×2 (08:33→20:29)
[2023-05-12] MEDS: VITAMINS A AND D OINT 42 GM TUBE TP SCH (08:33)
[2023-05-12] MEDS: JEVITY 1.2 1000 ML LIQUID GT PRN (12:27)
[2023-05-12] MEDS: HARRIS FLUSH ENEMA PR PRN (18:34)
[2023-05-12 20:00] VITALS: TEMP 98.6
[2023-05-12] MEDS: PROTEIN SUPPLEMENT (PROSTAT) 30 ML LIQUID GT SCH (20:29)
[2023-05-12] MEDS: MULTIVIT, IRON, MIN NO. 8, FA TABLET GT SCH (20:29)
[2023-05-12] MEDS: ACETAMINOPHEN 650 MG/20 ML UDC- SA PATIENTS-PAIN ONLY GT PRN (20:34)
[2023-05-12] MEDS ORDERED: DIATR MEGLU/DIATRIZOATE SODIUM 30 ML BOTTLE ONE (21:53)
[2023-05-12] MEDS ORDERED: DIATRIZOATE MEGLUMINE 300 ML INFUS..BTL ONE (21:53)
[2023-05-13] MEDS: SIMETHICONE 80 MG TAB.CHEW GT SCH ×4 (00:36→17:21)
[2023-05-13] MEDS: NUTRISOURCE FIBER 4 GM PACKET GT SCH ×2 (06:47→17:21)
[2023-05-13] MEDS: BACLOFEN 10 MG TABLET GT SCH ×3 (06:47→21:12)
[2023-05-13] MEDS: OMEPRAZOLE 20 MG CAPSULE.DR GT SCH (06:47)
[2023-05-13] MEDS: ACIDOPHILUS/BULGARICUS CHEW TAB GT SCH ×2 (06:47→17:21)
[2023-05-13 07:50] VITALS: TEMP 97.7
[2023-05-13] MEDS: JEVITY 1.2 1000 ML LIQUID GT PRN (07:57)
[2023-05-13] MEDS: REMEDY ESSENTIAL ZINC PASTE 113 GM TP SCH ×2 (08:00→20:38)
[2023-05-13] MEDS: ASCORBIC ACID 500 MG TABLET GT SCH (08:00)
[2023-05-13] MEDS: VITAMINS A AND D OINT 42 GM TUBE TP SCH (08:00)
[2023-05-13] MEDS: FINASTERIDE 5 MG TABLET GT SCH (08:00)
[2023-05-13] MEDS: DULOXETINE 20 MG CAPSULE.DR GT SCH (08:00)
[2023-05-13] MEDS: HYDROGEN PEROXIDE 3% 118 ML BOTTLE TP SCH ×2 (09:00→18:57)
[2023-05-13 20:00] VITALS: TEMP 98.7
[2023-05-13] MEDS: PROTEIN SUPPLEMENT (PROSTAT) 30 ML LIQUID GT SCH (20:38)
[2023-05-13] MEDS: MULTIVIT, IRON, MIN NO. 8, FA TABLET GT SCH (20:38)
[2023-05-14] MEDS: SIMETHICONE 80 MG TAB.CHEW GT SCH ×5 (00:13→23:09)
[2023-05-14] MEDS: JEVITY 1.2 1000 ML LIQUID GT PRN (02:51)
[2023-05-14] MEDS: NUTRISOURCE FIBER 4 GM PACKET GT SCH ×2 (05:17→17:17)
[2023-05-14] MEDS: BACLOFEN 10 MG TABLET GT SCH ×3 (05:17→22:54)
[2023-05-14] MEDS: ACIDOPHILUS/BULGARICUS CHEW TAB GT SCH ×2 (05:17→17:17)
[2023-05-14] MEDS: OMEPRAZOLE 20 MG CAPSULE.DR GT SCH (05:17)
[2023-05-14 07:21] VITALS: TEMP 98.4
[2023-05-14] MEDS: DULOXETINE 20 MG CAPSULE.DR GT SCH (08:13)
[2023-05-14] MEDS: HYDROGEN PEROXIDE 3% 118 ML BOTTLE TP SCH ×2 (08:13→19:20)
[2023-05-14] MEDS: FINASTERIDE 5 MG TABLET GT SCH (08:13)
[2023-05-14] MEDS: REMEDY ESSENTIAL ZINC PASTE 113 GM TP SCH ×2 (08:13→20:04)
[2023-05-14] MEDS: ASCORBIC ACID 500 MG TABLET GT SCH (08:13)
[2023-05-14] MEDS: VITAMINS A AND D OINT 42 GM TUBE TP SCH (08:14)
[2023-05-14 08:45] VITALS: O2SAT 98
[2023-05-14] MEDS: MAGNESIUM HYDROXIDE 30 ML LIQUID UDC GT PRN (17:22)
[2023-05-14] MEDS: HARRIS FLUSH ENEMA PR PRN (18:50)
[2023-05-14] MEDS: PROTEIN SUPPLEMENT (PROSTAT) 30 ML LIQUID GT SCH (20:04)
[2023-05-14] MEDS: MULTIVIT, IRON, MIN NO. 8, FA TABLET GT SCH (20:04)
[2023-05-14 20:08] VITALS: TEMP 98.5
[2023-05-15] MEDS: SIMETHICONE 80 MG TAB.CHEW GT SCH ×3 (05:14→17:25)
[2023-05-15] MEDS: OMEPRAZOLE 20 MG CAPSULE.DR GT SCH (05:14)
[2023-05-15] MEDS: ACIDOPHILUS/BULGARICUS CHEW TAB GT SCH ×2 (05:14→17:25)
[2023-05-15] MEDS: NUTRISOURCE FIBER 4 GM PACKET GT SCH ×2 (05:14→17:25)
[2023-05-15] MEDS: BACLOFEN 10 MG TABLET GT SCH ×3 (05:14→22:10)
[2023-05-15 07:24] VITALS: TEMP 98.9
[2023-05-15] MEDS: HYDROGEN PEROXIDE 3% 118 ML BOTTLE TP SCH ×2 (07:32→19:04)
[2023-05-15] MEDS: VITAMINS A AND D OINT 42 GM TUBE TP SCH (08:40)
[2023-05-15] MEDS: ASCORBIC ACID 500 MG TABLET GT SCH (08:40)
[2023-05-15] MEDS: DULOXETINE 20 MG CAPSULE.DR GT SCH (08:40)
[2023-05-15] MEDS: FINASTERIDE 5 MG TABLET GT SCH (08:40)
[2023-05-15] MEDS: REMEDY ESSENTIAL ZINC PASTE 113 GM TP SCH ×2 (08:40→20:23)
[2023-05-15] MEDS: HARRIS FLUSH ENEMA PR SCH (08:40)
[2023-05-15 20:00] VITALS: TEMP 98.6
[2023-05-15] MEDS: PROTEIN SUPPLEMENT (PROSTAT) 30 ML LIQUID GT SCH (20:21)
[2023-05-15] MEDS: MULTIVIT, IRON, MIN NO. 8, FA TABLET GT SCH (20:22)
[2023-05-16] MEDS: HARRIS FLUSH ENEMA PR PRN (02:00)
[2023-05-16] MEDS: SIMETHICONE 80 MG TAB.CHEW GT SCH ×4 (05:27→17:59)
[2023-05-16] MEDS: NUTRISOURCE FIBER 4 GM PACKET GT SCH ×2 (05:27→17:59)
[2023-05-16] MEDS: ACIDOPHILUS/BULGARICUS CHEW TAB GT SCH ×2 (05:27→17:59)
[2023-05-16] MEDS: OMEPRAZOLE 20 MG CAPSULE.DR GT SCH (05:27)
[2023-05-16] MEDS: BACLOFEN 10 MG TABLET GT SCH ×3 (05:27→22:28)
[2023-05-16 07:29] VITALS: TEMP 98.9
[2023-05-16] MEDS: FINASTERIDE 5 MG TABLET GT SCH (08:43)
[2023-05-16] MEDS: DULOXETINE 20 MG CAPSULE.DR GT SCH (08:43)
[2023-05-16] MEDS: VITAMINS A AND D OINT 42 GM TUBE TP SCH (08:43)
[2023-05-16] MEDS: ASCORBIC ACID 500 MG TABLET GT SCH (08:43)
[2023-05-16] MEDS: REMEDY ESSENTIAL ZINC PASTE 113 GM TP SCH ×2 (08:43→20:30)
[2023-05-16] MEDS: HYDROGEN PEROXIDE 3% 118 ML BOTTLE TP SCH ×2 (10:00→21:26)
[2023-05-16 20:27] VITALS: TEMP 98.4
[2023-05-16] MEDS: PROTEIN SUPPLEMENT (PROSTAT) 30 ML LIQUID GT SCH (20:27)
[2023-05-16] MEDS: MULTIVIT, IRON, MIN NO. 8, FA TABLET GT SCH (20:28)
[2023-05-16] MEDS: NEOMY/BACITRA/POLYMYXIN B OINT UD PACKET TP SCH (20:30)
[2023-05-17] MEDS: BACLOFEN 10 MG TABLET GT SCH ×3 (05:32→22:40)
[2023-05-17] MEDS: SIMETHICONE 80 MG TAB.CHEW GT SCH ×4 (05:32→17:42)
[2023-05-17] MEDS: OMEPRAZOLE 20 MG CAPSULE.DR GT SCH (05:32)
[2023-05-17] MEDS: ACIDOPHILUS/BULGARICUS CHEW TAB GT SCH ×2 (05:32→17:42)
[2023-05-17] MEDS: NUTRISOURCE FIBER 4 GM PACKET GT SCH ×2 (05:32→17:42)
[2023-05-17] MEDS: JEVITY 1.2 1000 ML LIQUID GT PRN (06:02)
[2023-05-17] MEDS: HYDROGEN PEROXIDE 3% 118 ML BOTTLE TP SCH ×2 (07:06→21:29)
[2023-05-17 07:43] VITALS: TEMP 98.3
[2023-05-17] MEDS: NEOMY/BACITRA/POLYMYXIN B OINT UD PACKET TP SCH ×2 (08:30→20:36)
[2023-05-17] MEDS: FINASTERIDE 5 MG TABLET GT SCH (08:30)
[2023-05-17] MEDS: VITAMINS A AND D OINT 42 GM TUBE TP SCH (08:30)
[2023-05-17] MEDS: ASCORBIC ACID 500 MG TABLET GT SCH (08:30)
[2023-05-17] MEDS: REMEDY ESSENTIAL ZINC PASTE 113 GM TP SCH ×2 (08:30→20:35)
[2023-05-17] MEDS: HARRIS FLUSH ENEMA PR SCH (08:30)
[2023-05-17] MEDS: DULOXETINE 20 MG CAPSULE.DR GT SCH (08:30)
[2023-05-17 20:15] VITALS: TEMP 98.5
[2023-05-17] MEDS: PROTEIN SUPPLEMENT (PROSTAT) 30 ML LIQUID GT SCH (20:33)
[2023-05-17] MEDS: MULTIVIT, IRON, MIN NO. 8, FA TABLET GT SCH (20:34)
[2023-05-18] MEDS: SIMETHICONE 80 MG TAB.CHEW GT SCH ×4 (00:41→18:03)
[2023-05-18] MEDS: JEVITY 1.2 1000 ML LIQUID GT PRN (01:30)
[2023-05-18] MEDS: ACIDOPHILUS/BULGARICUS CHEW TAB GT SCH ×2 (05:29→17:10)
[2023-05-18] MEDS: NUTRISOURCE FIBER 4 GM PACKET GT SCH ×2 (05:29→17:10)
[2023-05-18] MEDS: BACLOFEN 10 MG TABLET GT SCH ×3 (05:29→21:22)
[2023-05-18] MEDS: OMEPRAZOLE 20 MG CAPSULE.DR GT SCH (05:29)
[2023-05-18 07:44] VITALS: TEMP 98.3
[2023-05-18] MEDS: REMEDY ESSENTIAL ZINC PASTE 113 GM TP SCH ×2 (09:00→21:21)
[2023-05-18] MEDS: ASCORBIC ACID 500 MG TABLET GT SCH (09:00)
[2023-05-18] MEDS: DULOXETINE 20 MG CAPSULE.DR GT SCH (09:00)
[2023-05-18] MEDS: NEOMY/BACITRA/POLYMYXIN B OINT UD PACKET TP SCH ×2 (09:00→21:21)
[2023-05-18] MEDS: FINASTERIDE 5 MG TABLET GT SCH (09:00)
[2023-05-18] MEDS: VITAMINS A AND D OINT 42 GM TUBE TP SCH (09:00)
[2023-05-18] MEDS: HYDROGEN PEROXIDE 3% 118 ML BOTTLE TP SCH ×2 (09:23→19:10)
[2023-05-18 20:10] VITALS: TEMP 97
[2023-05-18] MEDS: PROTEIN SUPPLEMENT (PROSTAT) 30 ML LIQUID GT SCH (21:21)
[2023-05-18] MEDS: MULTIVIT, IRON, MIN NO. 8, FA TABLET GT SCH (21:21)
[2023-05-19] MEDS: SIMETHICONE 80 MG TAB.CHEW GT SCH ×4 (05:24→17:39)
[2023-05-19] MEDS: NUTRISOURCE FIBER 4 GM PACKET GT SCH ×2 (05:24→17:39)
[2023-05-19] MEDS: OMEPRAZOLE 20 MG CAPSULE.DR GT SCH (05:24)
[2023-05-19] MEDS: ACIDOPHILUS/BULGARICUS CHEW TAB GT SCH ×2 (05:24→17:39)
[2023-05-19] MEDS: BACLOFEN 10 MG TABLET GT SCH ×3 (05:27→22:45)
[2023-05-19 08:00] VITALS: TEMP 97.6
[2023-05-19] MEDS: DULOXETINE 20 MG CAPSULE.DR GT SCH (08:15)
[2023-05-19] MEDS: REMEDY ESSENTIAL ZINC PASTE 113 GM TP SCH ×2 (08:15→21:00)
[2023-05-19] MEDS: NEOMY/BACITRA/POLYMYXIN B OINT UD PACKET TP SCH ×2 (08:15→21:00)
[2023-05-19] MEDS: HARRIS FLUSH ENEMA PR SCH (08:15)
[2023-05-19] MEDS: ASCORBIC ACID 500 MG TABLET GT SCH (08:15)
[2023-05-19] MEDS: FINASTERIDE 5 MG TABLET GT SCH (08:15)
[2023-05-19] MEDS: VITAMINS A AND D OINT 42 GM TUBE TP SCH (08:15)
[2023-05-19] MEDS: HYDROGEN PEROXIDE 3% 118 ML BOTTLE TP SCH ×2 (09:27→20:15)
[2023-05-19] MEDS: JEVITY 1.2 1000 ML LIQUID GT PRN (17:40)
[2023-05-19] MEDS: PROTEIN SUPPLEMENT (PROSTAT) 30 ML LIQUID GT SCH (21:00)
[2023-05-19] MEDS: MULTIVIT, IRON, MIN NO. 8, FA TABLET GT SCH (21:00)
[2023-05-20] MEDS: SIMETHICONE 80 MG TAB.CHEW GT SCH ×4 (00:58→17:16)
[2023-05-20] MEDS: BACLOFEN 10 MG TABLET GT SCH ×3 (05:15→22:02)
[2023-05-20] MEDS: OMEPRAZOLE 20 MG CAPSULE.DR GT SCH (05:15)
[2023-05-20] MEDS: ACIDOPHILUS/BULGARICUS CHEW TAB GT SCH ×2 (05:15→17:16)
[2023-05-20] MEDS: NUTRISOURCE FIBER 4 GM PACKET GT SCH ×2 (05:15→17:16)
[2023-05-20 07:37] VITALS: TEMP 98.4
[2023-05-20] MEDS: FINASTERIDE 5 MG TABLET GT SCH (08:13)
[2023-05-20] MEDS: DULOXETINE 20 MG CAPSULE.DR GT SCH (08:13)
[2023-05-20] MEDS: NEOMY/BACITRA/POLYMYXIN B OINT UD PACKET TP SCH ×2 (08:13→20:36)
[2023-05-20] MEDS: VITAMINS A AND D OINT 42 GM TUBE TP SCH (08:13)
[2023-05-20] MEDS: ASCORBIC ACID 500 MG TABLET GT SCH (08:13)
[2023-05-20] MEDS: REMEDY ESSENTIAL ZINC PASTE 113 GM TP SCH ×2 (08:13→20:36)
[2023-05-20] MEDS: HYDROGEN PEROXIDE 3% 118 ML BOTTLE TP SCH ×2 (08:44→21:21)
[2023-05-20 19:52] VITALS: TEMP 98.6
[2023-05-20] MEDS: PROTEIN SUPPLEMENT (PROSTAT) 30 ML LIQUID GT SCH (20:36)
[2023-05-20] MEDS: MULTIVIT, IRON, MIN NO. 8, FA TABLET GT SCH (20:36)
[2023-05-21] MEDS: NUTRISOURCE FIBER 4 GM PACKET GT SCH ×2 (05:25→17:28)
[2023-05-21] MEDS: BACLOFEN 10 MG TABLET GT SCH ×3 (05:25→21:47)
[2023-05-21] MEDS: OMEPRAZOLE 20 MG CAPSULE.DR GT SCH (05:25)
[2023-05-21] MEDS: ACIDOPHILUS/BULGARICUS CHEW TAB GT SCH ×2 (05:25→17:28)
[2023-05-21] MEDS: SIMETHICONE 80 MG TAB.CHEW GT SCH ×4 (05:25→17:28)
[2023-05-21 07:28] VITALS: TEMP 98.2
[2023-05-21] MEDS: ASCORBIC ACID 500 MG TABLET GT SCH (09:21)
[2023-05-21] MEDS: DULOXETINE 20 MG CAPSULE.DR GT SCH (09:21)
[2023-05-21] MEDS: FINASTERIDE 5 MG TABLET GT SCH (09:21)
[2023-05-21] MEDS: NEOMY/BACITRA/POLYMYXIN B OINT UD PACKET TP SCH ×2 (09:22→21:47)
[2023-05-21] MEDS: REMEDY ESSENTIAL ZINC PASTE 113 GM TP SCH ×2 (09:22→21:47)
[2023-05-21] MEDS: VITAMINS A AND D OINT 42 GM TUBE TP SCH (09:22)
[2023-05-21] MEDS: HYDROGEN PEROXIDE 3% 118 ML BOTTLE TP SCH ×2 (09:50→21:00)
[2023-05-21 19:51] VITALS: TEMP 98.5
[2023-05-21] MEDS: PROTEIN SUPPLEMENT (PROSTAT) 30 ML LIQUID GT SCH (21:46)
[2023-05-21] MEDS: MULTIVIT, IRON, MIN NO. 8, FA TABLET GT SCH (21:46)
[2023-05-22] MEDS: JEVITY 1.2 1000 ML LIQUID GT PRN (01:54)
[2023-05-22] MEDS: NUTRISOURCE FIBER 4 GM PACKET GT SCH ×2 (05:19→17:15)
[2023-05-22] MEDS: ACIDOPHILUS/BULGARICUS CHEW TAB GT SCH ×2 (05:19→17:15)
[2023-05-22] MEDS: SIMETHICONE 80 MG TAB.CHEW GT SCH ×4 (05:19→17:15)
[2023-05-22] MEDS: BACLOFEN 10 MG TABLET GT SCH ×3 (05:19→22:00)
[2023-05-22] MEDS: OMEPRAZOLE 20 MG CAPSULE.DR GT SCH (05:19)
[2023-05-22] MEDS: HYDROGEN PEROXIDE 3% 118 ML BOTTLE TP SCH ×2 (07:20→19:36)
[2023-05-22 07:26] VITALS: TEMP 99.2
[2023-05-22] MEDS: DULOXETINE 20 MG CAPSULE.DR GT SCH (09:30)
[2023-05-22] MEDS: NEOMY/BACITRA/POLYMYXIN B OINT UD PACKET TP SCH ×2 (09:30→20:29)
[2023-05-22] MEDS: HARRIS FLUSH ENEMA PR SCH (09:30)
[2023-05-22] MEDS: ASCORBIC ACID 500 MG TABLET GT SCH (09:30)
[2023-05-22] MEDS: VITAMINS A AND D OINT 42 GM TUBE TP SCH (09:30)
[2023-05-22] MEDS: FINASTERIDE 5 MG TABLET GT SCH (09:30)
[2023-05-22] MEDS: REMEDY ESSENTIAL ZINC PASTE 113 GM TP SCH ×2 (09:30→20:29)
[2023-05-22 20:14] VITALS: TEMP 98.6
[2023-05-22] MEDS: MULTIVIT, IRON, MIN NO. 8, FA TABLET GT SCH (20:29)
[2023-05-22] MEDS: PROTEIN SUPPLEMENT (PROSTAT) 30 ML LIQUID GT SCH (20:29)
[2023-05-23] MEDS: SIMETHICONE 80 MG TAB.CHEW GT SCH ×4 (00:48→18:07)
[2023-05-23] MEDS: OMEPRAZOLE 20 MG CAPSULE.DR GT SCH (05:15)
[2023-05-23] MEDS: ACIDOPHILUS/BULGARICUS CHEW TAB GT SCH ×2 (05:15→18:07)
[2023-05-23] MEDS: BACLOFEN 10 MG TABLET GT SCH ×3 (05:15→21:54)
[2023-05-23] MEDS: NUTRISOURCE FIBER 4 GM PACKET GT SCH ×2 (05:15→18:07)
[2023-05-23 08:00] VITALS: TEMP 98.2
[2023-05-23] MEDS: DULOXETINE 20 MG CAPSULE.DR GT SCH (08:39)
[2023-05-23] MEDS: REMEDY ESSENTIAL ZINC PASTE 113 GM TP SCH ×2 (08:40→21:54)
[2023-05-23] MEDS: ASCORBIC ACID 500 MG TABLET GT SCH (08:40)
[2023-05-23] MEDS: NEOMY/BACITRA/POLYMYXIN B OINT UD PACKET TP SCH ×2 (08:40→21:54)
[2023-05-23] MEDS: FINASTERIDE 5 MG TABLET GT SCH (08:40)
[2023-05-23] MEDS: VITAMINS A AND D OINT 42 GM TUBE TP SCH (08:40)
[2023-05-23] MEDS: HYDROGEN PEROXIDE 3% 118 ML BOTTLE TP SCH ×2 (09:00→21:09)
[2023-05-23] MEDS: JEVITY 1.2 1000 ML LIQUID GT PRN (11:48)
[2023-05-23 19:54] VITALS: TEMP 98
[2023-05-23] MEDS: MULTIVIT, IRON, MIN NO. 8, FA TABLET GT SCH (21:54)
[2023-05-23] MEDS: PROTEIN SUPPLEMENT (PROSTAT) 30 ML LIQUID GT SCH (21:54)
[2023-05-24] MEDS: SIMETHICONE 80 MG TAB.CHEW GT SCH ×4 (00:25→17:12)
[2023-05-24] MEDS: HARRIS FLUSH ENEMA PR PRN (02:00)
[2023-05-24] MEDS: ACIDOPHILUS/BULGARICUS CHEW TAB GT SCH ×2 (05:14→17:12)
[2023-05-24] MEDS: BACLOFEN 10 MG TABLET GT SCH ×3 (05:14→22:06)
[2023-05-24] MEDS: NUTRISOURCE FIBER 4 GM PACKET GT SCH ×2 (05:15→17:12)
[2023-05-24] MEDS: OMEPRAZOLE 20 MG CAPSULE.DR GT SCH (05:15)
[2023-05-24 08:00] VITALS: TEMP 97.5
[2023-05-24] MEDS: REMEDY ESSENTIAL ZINC PASTE 113 GM TP SCH ×2 (08:08→20:38)
[2023-05-24] MEDS: DULOXETINE 20 MG CAPSULE.DR GT SCH (08:08)
[2023-05-24] MEDS: ASCORBIC ACID 500 MG TABLET GT SCH (08:08)
[2023-05-24] MEDS: VITAMINS A AND D OINT 42 GM TUBE TP SCH (08:08)
[2023-05-24] MEDS: NEOMY/BACITRA/POLYMYXIN B OINT UD PACKET TP SCH ×2 (08:08→20:38)
[2023-05-24] MEDS: FINASTERIDE 5 MG TABLET GT SCH (08:08)
[2023-05-24] MEDS: HARRIS FLUSH ENEMA PR SCH (08:08)
[2023-05-24] MEDS: JEVITY 1.2 1000 ML LIQUID GT PRN (09:42)
[2023-05-24] MEDS: HYDROGEN PEROXIDE 3% 118 ML BOTTLE TP SCH ×2 (09:54→21:17)
[2023-05-24 19:50] VITALS: TEMP 98
[2023-05-24] MEDS: MULTIVIT, IRON, MIN NO. 8, FA TABLET GT SCH (20:38)
[2023-05-24] MEDS: PROTEIN SUPPLEMENT (PROSTAT) 30 ML LIQUID GT SCH (20:38)
[2023-05-25] MEDS: JEVITY 1.2 1000 ML LIQUID GT PRN ×2 (04:03→23:49)
[2023-05-25] MEDS: ACIDOPHILUS/BULGARICUS CHEW TAB GT SCH ×2 (05:59→17:23)
[2023-05-25] MEDS: BACLOFEN 10 MG TABLET GT SCH ×3 (06:00→22:33)
[2023-05-25] MEDS: OMEPRAZOLE 20 MG CAPSULE.DR GT SCH (06:00)
[2023-05-25] MEDS: NUTRISOURCE FIBER 4 GM PACKET GT SCH ×2 (06:00→17:23)
[2023-05-25] MEDS: SIMETHICONE 80 MG TAB.CHEW GT SCH ×5 (06:00→23:29)
[2023-05-25] MEDS: HYDROGEN PEROXIDE 3% 118 ML BOTTLE TP SCH ×2 (07:20→21:12)
[2023-05-25 07:47] VITALS: TEMP 98.2
[2023-05-25] MEDS: VITAMINS A AND D OINT 42 GM TUBE TP SCH (08:52)
[2023-05-25] MEDS: REMEDY ESSENTIAL ZINC PASTE 113 GM TP SCH ×2 (08:52→20:24)
[2023-05-25] MEDS: NEOMY/BACITRA/POLYMYXIN B OINT UD PACKET TP SCH ×2 (08:52→20:24)
[2023-05-25] MEDS: DULOXETINE 20 MG CAPSULE.DR GT SCH (08:52)
[2023-05-25] MEDS: ASCORBIC ACID 500 MG TABLET GT SCH (08:52)
[2023-05-25] MEDS: FINASTERIDE 5 MG TABLET GT SCH (08:52)
[2023-05-25 20:00] VITALS: TEMP 97
[2023-05-25] MEDS: PROTEIN SUPPLEMENT (PROSTAT) 30 ML LIQUID GT SCH (20:24)
[2023-05-25] MEDS: MULTIVIT, IRON, MIN NO. 8, FA TABLET GT SCH (20:24)
[2023-05-26] MEDS: OMEPRAZOLE 20 MG CAPSULE.DR GT SCH (06:36)
[2023-05-26] MEDS: SIMETHICONE 80 MG TAB.CHEW GT SCH ×3 (06:36→17:05)
[2023-05-26] MEDS: NUTRISOURCE FIBER 4 GM PACKET GT SCH ×2 (06:36→17:05)
[2023-05-26] MEDS: BACLOFEN 10 MG TABLET GT SCH ×3 (06:36→21:30)
[2023-05-26] MEDS: ACIDOPHILUS/BULGARICUS CHEW TAB GT SCH ×2 (06:36→17:05)
[2023-05-26] MEDS: ASCORBIC ACID 500 MG TABLET GT SCH (09:33)
[2023-05-26] MEDS: HARRIS FLUSH ENEMA PR SCH (09:33)
[2023-05-26] MEDS: VITAMINS A AND D OINT 42 GM TUBE TP SCH (09:33)
[2023-05-26] MEDS: REMEDY ESSENTIAL ZINC PASTE 113 GM TP SCH ×2 (09:33→21:30)
[2023-05-26] MEDS: HYDROGEN PEROXIDE 3% 118 ML BOTTLE TP SCH ×2 (09:33→21:48)
[2023-05-26] MEDS: NEOMY/BACITRA/POLYMYXIN B OINT UD PACKET TP SCH ×2 (09:33→21:30)
[2023-05-26] MEDS: FINASTERIDE 5 MG TABLET GT SCH (09:37)
[2023-05-26] MEDS: DULOXETINE 20 MG CAPSULE.DR GT SCH (09:37)
[2023-05-26 18:28] VITALS: BP 113/48; TEMP 97.9; O2SAT 100
[2023-05-26 20:00] VITALS: BP 126/61; TEMP 97.6; O2SAT 97
[2023-05-26] MEDS: PROTEIN SUPPLEMENT (PROSTAT) 30 ML LIQUID GT SCH (21:28)
[2023-05-26] MEDS: MULTIVIT, IRON, MIN NO. 8, FA TABLET GT SCH (21:29)
[2023-05-26] MEDS: JEVITY 1.2 1000 ML LIQUID GT PRN (22:37)
[2023-05-27 01:37] VITALS: TEMP 97.6
[2023-05-27] MEDS: HARRIS FLUSH ENEMA PR PRN (02:00)
[2023-05-27] MEDS: MAGNESIUM HYDROXIDE 30 ML LIQUID UDC GT PRN (05:37)
[2023-05-27] MEDS: ACIDOPHILUS/BULGARICUS CHEW TAB GT SCH ×2 (05:37→17:20)
[2023-05-27] MEDS: BACLOFEN 10 MG TABLET GT SCH ×3 (05:37→21:32)
[2023-05-27] MEDS: SIMETHICONE 80 MG TAB.CHEW GT SCH ×5 (05:37→23:01)
[2023-05-27] MEDS: NUTRISOURCE FIBER 4 GM PACKET GT SCH ×2 (05:37→17:20)
[2023-05-27] MEDS: OMEPRAZOLE 20 MG CAPSULE.DR GT SCH (05:37)
[2023-05-27 07:38] VITALS: TEMP 98.6
[2023-05-27] MEDS: FINASTERIDE 5 MG TABLET GT SCH (08:37)
[2023-05-27] MEDS: ASCORBIC ACID 500 MG TABLET GT SCH (08:37)
[2023-05-27] MEDS: DULOXETINE 20 MG CAPSULE.DR GT SCH (08:37)
[2023-05-27] MEDS: VITAMINS A AND D OINT 42 GM TUBE TP SCH (08:38)
[2023-05-27] MEDS: REMEDY ESSENTIAL ZINC PASTE 113 GM TP SCH ×2 (08:38→20:51)
[2023-05-27] MEDS: NEOMY/BACITRA/POLYMYXIN B OINT UD PACKET TP SCH ×2 (08:38→20:51)
[2023-05-27] MEDS: HYDROGEN PEROXIDE 3% 118 ML BOTTLE TP SCH ×2 (09:07→20:22)
[2023-05-27 19:41] VITALS: TEMP 98.8
[2023-05-27] MEDS: PROTEIN SUPPLEMENT (PROSTAT) 30 ML LIQUID GT SCH (20:51)
[2023-05-27] MEDS: MULTIVIT, IRON, MIN NO. 8, FA TABLET GT SCH (20:51)
[2023-05-28] MEDS: SIMETHICONE 80 MG TAB.CHEW GT SCH ×4 (05:11→23:20)
[2023-05-28] MEDS: BACLOFEN 10 MG TABLET GT SCH ×3 (05:11→22:41)
[2023-05-28] MEDS: ACIDOPHILUS/BULGARICUS CHEW TAB GT SCH ×2 (05:11→17:00)
[2023-05-28] MEDS: NUTRISOURCE FIBER 4 GM PACKET GT SCH ×2 (05:11→17:00)
[2023-05-28] MEDS: OMEPRAZOLE 20 MG CAPSULE.DR GT SCH (05:11)
[2023-05-28 07:22] VITALS: TEMP 97.9
[2023-05-28] MEDS: REMEDY ESSENTIAL ZINC PASTE 113 GM TP SCH ×2 (08:40→20:29)
[2023-05-28] MEDS: FINASTERIDE 5 MG TABLET GT SCH (08:40)
[2023-05-28] MEDS: VITAMINS A AND D OINT 42 GM TUBE TP SCH (08:40)
[2023-05-28] MEDS: DULOXETINE 20 MG CAPSULE.DR GT SCH (08:40)
[2023-05-28] MEDS: ASCORBIC ACID 500 MG TABLET GT SCH (08:40)
[2023-05-28] MEDS: NEOMY/BACITRA/POLYMYXIN B OINT UD PACKET TP SCH ×2 (08:40→20:29)
[2023-05-28] MEDS: HYDROGEN PEROXIDE 3% 118 ML BOTTLE TP SCH ×2 (09:54→21:00)
[2023-05-28] MEDS: JEVITY 1.2 1000 ML LIQUID GT PRN (16:23)
[2023-05-28 19:40] VITALS: TEMP 98.4
[2023-05-28] MEDS: PROTEIN SUPPLEMENT (PROSTAT) 30 ML LIQUID GT SCH (20:29)
[2023-05-28] MEDS: MULTIVIT, IRON, MIN NO. 8, FA TABLET GT SCH (20:29)
[2023-05-29] MEDS: OMEPRAZOLE 20 MG CAPSULE.DR GT SCH (05:27)
[2023-05-29] MEDS: SIMETHICONE 80 MG TAB.CHEW GT SCH ×4 (05:27→23:18)
[2023-05-29] MEDS: ACIDOPHILUS/BULGARICUS CHEW TAB GT SCH ×2 (05:27→17:11)
[2023-05-29] MEDS: NUTRISOURCE FIBER 4 GM PACKET GT SCH ×2 (05:27→17:11)
[2023-05-29] MEDS: BACLOFEN 10 MG TABLET GT SCH ×3 (05:27→22:00)
[2023-05-29 07:24] VITALS: TEMP 98.7
[2023-05-29] MEDS: FINASTERIDE 5 MG TABLET GT SCH (08:03)
[2023-05-29] MEDS: DULOXETINE 20 MG CAPSULE.DR GT SCH (08:03)
[2023-05-29] MEDS: ASCORBIC ACID 500 MG TABLET GT SCH (08:03)
[2023-05-29] MEDS: VITAMINS A AND D OINT 42 GM TUBE TP SCH (08:04)
[2023-05-29] MEDS: REMEDY ESSENTIAL ZINC PASTE 113 GM TP SCH ×2 (08:04→21:00)
[2023-05-29] MEDS: NEOMY/BACITRA/POLYMYXIN B OINT UD PACKET TP SCH ×2 (08:04→21:00)
[2023-05-29] MEDS: HYDROGEN PEROXIDE 3% 118 ML BOTTLE TP SCH ×2 (08:47→19:22)
[2023-05-29] MEDS: HARRIS FLUSH ENEMA PR SCH (09:54)
[2023-05-29] MEDS: JEVITY 1.2 1000 ML LIQUID GT PRN (10:54)
[2023-05-29 19:52] VITALS: TEMP 98.9
[2023-05-29] MEDS: PROTEIN SUPPLEMENT (PROSTAT) 30 ML LIQUID GT SCH (21:00)
[2023-05-29] MEDS: MULTIVIT, IRON, MIN NO. 8, FA TABLET GT SCH (21:00)
[2023-05-30] MEDS: JEVITY 1.2 1000 ML LIQUID GT PRN ×2 (03:35→19:00)
[2023-05-30] MEDS: SIMETHICONE 80 MG TAB.CHEW GT SCH ×3 (06:08→17:25)
[2023-05-30] MEDS: OMEPRAZOLE 20 MG CAPSULE.DR GT SCH (06:08)
[2023-05-30] MEDS: ACIDOPHILUS/BULGARICUS CHEW TAB GT SCH ×2 (06:08→17:25)
[2023-05-30] MEDS: NUTRISOURCE FIBER 4 GM PACKET GT SCH ×2 (06:08→17:25)
[2023-05-30] MEDS: BACLOFEN 10 MG TABLET GT SCH ×3 (06:08→21:32)
[2023-05-30 07:20] VITALS: TEMP 98.9
[2023-05-30] MEDS: HYDROGEN PEROXIDE 3% 118 ML BOTTLE TP SCH ×2 (08:55→21:30)
[2023-05-30] MEDS: DULOXETINE 20 MG CAPSULE.DR GT SCH (08:58)
[2023-05-30] MEDS: ASCORBIC ACID 500 MG TABLET GT SCH (08:58)
[2023-05-30] MEDS: REMEDY ESSENTIAL ZINC PASTE 113 GM TP SCH ×2 (08:58→21:32)
[2023-05-30] MEDS: NEOMY/BACITRA/POLYMYXIN B OINT UD PACKET TP SCH (08:58)
[2023-05-30] MEDS: VITAMINS A AND D OINT 42 GM TUBE TP SCH (08:58)
[2023-05-30] MEDS: FINASTERIDE 5 MG TABLET GT SCH (08:58)
[2023-05-30 20:01] VITALS: TEMP 98.9
[2023-05-30] MEDS: MULTIVIT, IRON, MIN NO. 8, FA TABLET GT SCH (21:32)
[2023-05-30] MEDS: PROTEIN SUPPLEMENT (PROSTAT) 30 ML LIQUID GT SCH (21:32)
[2023-05-31] MEDS: SIMETHICONE 80 MG TAB.CHEW GT SCH ×4 (00:46→17:08)
[2023-05-31] MEDS: ACIDOPHILUS/BULGARICUS CHEW TAB GT SCH ×2 (05:48→17:08)
[2023-05-31] MEDS: OMEPRAZOLE 20 MG CAPSULE.DR GT SCH (05:49)
[2023-05-31] MEDS: BACLOFEN 10 MG TABLET GT SCH ×3 (05:49→22:00)
[2023-05-31] MEDS: NUTRISOURCE FIBER 4 GM PACKET GT SCH ×2 (05:49→17:08)
[2023-05-31 08:00] VITALS: TEMP 98.6
[2023-05-31] MEDS: FINASTERIDE 5 MG TABLET GT SCH (08:23)
[2023-05-31] MEDS: REMEDY ESSENTIAL ZINC PASTE 113 GM TP SCH ×2 (08:23→21:00)
[2023-05-31] MEDS: ASCORBIC ACID 500 MG TABLET GT SCH (08:23)
[2023-05-31] MEDS: HARRIS FLUSH ENEMA PR SCH (08:23)
[2023-05-31] MEDS: VITAMINS A AND D OINT 42 GM TUBE TP SCH (08:23)
[2023-05-31] MEDS: DULOXETINE 20 MG CAPSULE.DR GT SCH (08:23)
[2023-05-31] MEDS: HYDROGEN PEROXIDE 3% 118 ML BOTTLE TP SCH ×2 (08:55→21:00)
[2023-05-31] MEDS: JEVITY 1.2 1000 ML LIQUID GT PRN (12:56)
[2023-05-31] MEDS: MULTIVIT, IRON, MIN NO. 8, FA TABLET GT SCH (21:00)
[2023-05-31] MEDS: PROTEIN SUPPLEMENT (PROSTAT) 30 ML LIQUID GT SCH (21:00)
[2023-06-01] MEDS: SIMETHICONE 80 MG TAB.CHEW GT SCH ×4 (00:15→17:45)
[2023-06-01] MEDS: JEVITY 1.2 1000 ML LIQUID GT PRN (02:27)
[2023-06-01] MEDS: ACIDOPHILUS/BULGARICUS CHEW TAB GT SCH ×2 (05:51→17:45)
[2023-06-01] MEDS: OMEPRAZOLE 20 MG CAPSULE.DR GT SCH (05:52)
[2023-06-01] MEDS: BACLOFEN 10 MG TABLET GT SCH ×3 (05:52→21:32)
[2023-06-01] MEDS: NUTRISOURCE FIBER 4 GM PACKET GT SCH ×2 (05:52→17:45)
[2023-06-01 08:16] VITALS: TEMP 98.1
[2023-06-01] MEDS: REMEDY ESSENTIAL ZINC PASTE 113 GM TP SCH ×2 (08:45→20:14)
[2023-06-01] MEDS: DULOXETINE 20 MG CAPSULE.DR GT SCH (08:45)
[2023-06-01] MEDS: VITAMINS A AND D OINT 42 GM TUBE TP SCH (08:45)
[2023-06-01] MEDS: FINASTERIDE 5 MG TABLET GT SCH (08:45)
[2023-06-01] MEDS: ASCORBIC ACID 500 MG TABLET GT SCH (08:45)
[2023-06-01] MEDS: HYDROGEN PEROXIDE 3% 118 ML BOTTLE TP SCH ×2 (09:00→20:51)
[2023-06-01] MEDS: MULTIVIT, IRON, MIN NO. 8, FA TABLET GT SCH (20:14)
[2023-06-01] MEDS: PROTEIN SUPPLEMENT (PROSTAT) 30 ML LIQUID GT SCH (20:14)
[2023-06-01 21:25] VITALS: TEMP 98.7
[2023-06-02] MEDS: SIMETHICONE 80 MG TAB.CHEW GT SCH ×5 (00:27→23:05)
[2023-06-02] MEDS: JEVITY 1.2 1000 ML LIQUID GT PRN (03:04)
[2023-06-02] MEDS: ACIDOPHILUS/BULGARICUS CHEW TAB GT SCH ×2 (06:19→18:19)
[2023-06-02] MEDS: NUTRISOURCE FIBER 4 GM PACKET GT SCH ×2 (06:19→18:19)
[2023-06-02] MEDS: OMEPRAZOLE 20 MG CAPSULE.DR GT SCH (06:19)
[2023-06-02] MEDS: BACLOFEN 10 MG TABLET GT SCH ×3 (06:19→22:00)
[2023-06-02] MEDS: HYDROGEN PEROXIDE 3% 118 ML BOTTLE TP SCH ×2 (08:27→19:07)
[2023-06-02 08:28] VITALS: TEMP 98.8
[2023-06-02] MEDS: ASCORBIC ACID 500 MG TABLET GT SCH (08:57)
[2023-06-02] MEDS: HARRIS FLUSH ENEMA PR SCH (08:57)
[2023-06-02] MEDS: DULOXETINE 20 MG CAPSULE.DR GT SCH (08:57)
[2023-06-02] MEDS: FINASTERIDE 5 MG TABLET GT SCH (08:57)
[2023-06-02] MEDS: REMEDY ESSENTIAL ZINC PASTE 113 GM TP SCH ×2 (09:00→20:06)
[2023-06-02] MEDS: VITAMINS A AND D OINT 42 GM TUBE TP SCH (09:00)
[2023-06-02] MEDS: MULTIVIT, IRON, MIN NO. 8, FA TABLET GT SCH (20:06)
[2023-06-02] MEDS: PROTEIN SUPPLEMENT (PROSTAT) 30 ML LIQUID GT SCH (20:06)
[2023-06-02 22:00] VITALS: TEMP 98.8
[2023-06-03] MEDS: ACIDOPHILUS/BULGARICUS CHEW TAB GT SCH ×2 (06:06→18:12)
[2023-06-03] MEDS: OMEPRAZOLE 20 MG CAPSULE.DR GT SCH (06:06)
[2023-06-03] MEDS: BACLOFEN 10 MG TABLET GT SCH ×3 (06:06→21:17)
[2023-06-03] MEDS: SIMETHICONE 80 MG TAB.CHEW GT SCH ×3 (06:06→18:12)
[2023-06-03] MEDS: NUTRISOURCE FIBER 4 GM PACKET GT SCH ×2 (06:06→18:12)
[2023-06-03 08:10] VITALS: TEMP 99.3
[2023-06-03] MEDS: HYDROGEN PEROXIDE 3% 118 ML BOTTLE TP SCH ×2 (08:36→21:15)
[2023-06-03] MEDS: DULOXETINE 20 MG CAPSULE.DR GT SCH (08:55)
[2023-06-03] MEDS: ASCORBIC ACID 500 MG TABLET GT SCH (08:56)
[2023-06-03] MEDS: FINASTERIDE 5 MG TABLET GT SCH (08:56)
[2023-06-03] MEDS: VITAMINS A AND D OINT 42 GM TUBE TP SCH (08:56)
[2023-06-03] MEDS: REMEDY ESSENTIAL ZINC PASTE 113 GM TP SCH ×2 (08:56→21:17)
[2023-06-03] MEDS: JEVITY 1.2 1000 ML LIQUID GT PRN (14:42)
[2023-06-03 20:00] VITALS: TEMP 99
[2023-06-03] MEDS: MULTIVIT, IRON, MIN NO. 8, FA TABLET GT SCH (21:17)
[2023-06-03] MEDS: PROTEIN SUPPLEMENT (PROSTAT) 30 ML LIQUID GT SCH (21:17)
[2023-06-04] MEDS: BACLOFEN 10 MG TABLET GT SCH ×3 (05:34→21:47)
[2023-06-04] MEDS: SIMETHICONE 80 MG TAB.CHEW GT SCH ×5 (05:34→23:26)
[2023-06-04] MEDS: OMEPRAZOLE 20 MG CAPSULE.DR GT SCH (05:34)
[2023-06-04] MEDS: NUTRISOURCE FIBER 4 GM PACKET GT SCH ×2 (05:34→18:05)
[2023-06-04] MEDS: ACIDOPHILUS/BULGARICUS CHEW TAB GT SCH ×2 (05:34→18:05)
[2023-06-04 07:41] VITALS: TEMP 97.7
[2023-06-04] MEDS: REMEDY ESSENTIAL ZINC PASTE 113 GM TP SCH ×2 (08:24→20:46)
[2023-06-04] MEDS: ASCORBIC ACID 500 MG TABLET GT SCH (08:24)
[2023-06-04] MEDS: FINASTERIDE 5 MG TABLET GT SCH (08:24)
[2023-06-04] MEDS: DULOXETINE 20 MG CAPSULE.DR GT SCH (08:24)
[2023-06-04] MEDS: VITAMINS A AND D OINT 42 GM TUBE TP SCH (08:25)
[2023-06-04] MEDS: JEVITY 1.2 1000 ML LIQUID GT PRN (08:25)
[2023-06-04] MEDS: HYDROGEN PEROXIDE 3% 118 ML BOTTLE TP SCH ×2 (09:33→19:25)
[2023-06-04 20:00] VITALS: TEMP 99.1
[2023-06-04] MEDS: PROTEIN SUPPLEMENT (PROSTAT) 30 ML LIQUID GT SCH (20:45)
[2023-06-04] MEDS: MULTIVIT, IRON, MIN NO. 8, FA TABLET GT SCH (20:46)
[2023-06-05] MEDS ORDERED: DIATR MEGLU/DIATRIZOATE SODIUM 30 ML BOTTLE ONE (02:02)
[2023-06-05] MEDS: ACIDOPHILUS/BULGARICUS CHEW TAB GT SCH ×2 (05:13→17:14)
[2023-06-05] MEDS: OMEPRAZOLE 20 MG CAPSULE.DR GT SCH (05:13)
[2023-06-05] MEDS: BACLOFEN 10 MG TABLET GT SCH ×3 (05:13→21:51)
[2023-06-05] MEDS: SIMETHICONE 80 MG TAB.CHEW GT SCH ×3 (05:13→17:14)
[2023-06-05] MEDS: JEVITY 1.2 1000 ML LIQUID GT PRN (05:13)
[2023-06-05] MEDS: NUTRISOURCE FIBER 4 GM PACKET GT SCH ×2 (05:13→17:14)
[2023-06-05] MEDS: MAGNESIUM HYDROXIDE 30 ML LIQUID UDC GT PRN (05:23)
[2023-06-05] MEDS: HYDROGEN PEROXIDE 3% 118 ML BOTTLE TP SCH ×2 (07:20→19:00)
[2023-06-05 07:51] VITALS: TEMP 97.7
[2023-06-05] MEDS: ASCORBIC ACID 500 MG TABLET GT SCH (08:33)
[2023-06-05] MEDS: FINASTERIDE 5 MG TABLET GT SCH (08:33)
[2023-06-05] MEDS: DULOXETINE 20 MG CAPSULE.DR GT SCH (08:33)
[2023-06-05] MEDS: HARRIS FLUSH ENEMA PR SCH (08:34)
[2023-06-05] MEDS: REMEDY ESSENTIAL ZINC PASTE 113 GM TP SCH ×2 (08:34→21:51)
[2023-06-05] MEDS: VITAMINS A AND D OINT 42 GM TUBE TP SCH (08:34)
[2023-06-05 20:00] VITALS: TEMP 98.1
[2023-06-05] MEDS: PROTEIN SUPPLEMENT (PROSTAT) 30 ML LIQUID GT SCH (21:51)
[2023-06-05] MEDS: MULTIVIT, IRON, MIN NO. 8, FA TABLET GT SCH (21:51)
[2023-06-06] MEDS: JEVITY 1.2 1000 ML LIQUID GT PRN ×2 (01:00→18:06)
[2023-06-06] MEDS: SIMETHICONE 80 MG TAB.CHEW GT SCH ×5 (06:05→23:34)
[2023-06-06] MEDS: OMEPRAZOLE 20 MG CAPSULE.DR GT SCH (06:05)
[2023-06-06] MEDS: NUTRISOURCE FIBER 4 GM PACKET GT SCH ×2 (06:05→18:01)
[2023-06-06] MEDS: ACIDOPHILUS/BULGARICUS CHEW TAB GT SCH ×2 (06:05→18:00)
[2023-06-06] MEDS: BACLOFEN 10 MG TABLET GT SCH ×3 (06:05→22:24)
[2023-06-06 07:40] VITALS: TEMP 98.2
[2023-06-06] MEDS: DULOXETINE 20 MG CAPSULE.DR GT SCH (08:53)
[2023-06-06] MEDS: FINASTERIDE 5 MG TABLET GT SCH (08:54)
[2023-06-06] MEDS: REMEDY ESSENTIAL ZINC PASTE 113 GM TP SCH ×2 (08:55→20:22)
[2023-06-06] MEDS: ASCORBIC ACID 500 MG TABLET GT SCH (08:55)
[2023-06-06] MEDS: VITAMINS A AND D OINT 42 GM TUBE TP SCH (08:55)
[2023-06-06] MEDS: HYDROGEN PEROXIDE 3% 118 ML BOTTLE TP SCH ×2 (09:32→20:48)
[2023-06-06 20:00] VITALS: TEMP 98.4; TEMP 98.6
[2023-06-06] MEDS: MULTIVIT, IRON, MIN NO. 8, FA TABLET GT SCH (20:22)
[2023-06-06] MEDS: PROTEIN SUPPLEMENT (PROSTAT) 30 ML LIQUID GT SCH (20:22)
[2023-06-07] MEDS: OMEPRAZOLE 20 MG CAPSULE.DR GT SCH (05:25)
[2023-06-07] MEDS: BACLOFEN 10 MG TABLET GT SCH ×3 (05:25→22:12)
[2023-06-07] MEDS: NUTRISOURCE FIBER 4 GM PACKET GT SCH ×2 (05:25→18:02)
[2023-06-07] MEDS: ACIDOPHILUS/BULGARICUS CHEW TAB GT SCH ×2 (05:25→18:02)
[2023-06-07] MEDS: SIMETHICONE 80 MG TAB.CHEW GT SCH ×3 (05:25→18:02)
[2023-06-07 08:00] VITALS: TEMP 98.1
[2023-06-07] MEDS: DULOXETINE 20 MG CAPSULE.DR GT SCH (08:58)
[2023-06-07] MEDS: ASCORBIC ACID 500 MG TABLET GT SCH (08:58)
[2023-06-07] MEDS: REMEDY ESSENTIAL ZINC PASTE 113 GM TP SCH ×2 (08:58→20:19)
[2023-06-07] MEDS: FINASTERIDE 5 MG TABLET GT SCH (08:58)
[2023-06-07] MEDS: HARRIS FLUSH ENEMA PR SCH (08:58)
[2023-06-07] MEDS: VITAMINS A AND D OINT 42 GM TUBE TP SCH (08:59)
[2023-06-07] MEDS: HYDROGEN PEROXIDE 3% 118 ML BOTTLE TP SCH ×2 (09:08→09:09)
[2023-06-07] MEDS: JEVITY 1.2 1000 ML LIQUID GT PRN (12:06)
[2023-06-07 20:00] VITALS: TEMP 98.8
[2023-06-07] MEDS: PROTEIN SUPPLEMENT (PROSTAT) 30 ML LIQUID GT SCH (20:19)
[2023-06-07] MEDS: MULTIVIT, IRON, MIN NO. 8, FA TABLET GT SCH (20:19)
[2023-06-08] MEDS: SIMETHICONE 80 MG TAB.CHEW GT SCH ×4 (00:04→18:04)
[2023-06-08] MEDS: JEVITY 1.2 1000 ML LIQUID GT PRN (03:20)
[2023-06-08] MEDS: NUTRISOURCE FIBER 4 GM PACKET GT SCH ×2 (05:29→18:04)
[2023-06-08] MEDS: OMEPRAZOLE 20 MG CAPSULE.DR GT SCH (05:29)
[2023-06-08] MEDS: BACLOFEN 10 MG TABLET GT SCH ×3 (05:29→21:26)
[2023-06-08] MEDS: ACIDOPHILUS/BULGARICUS CHEW TAB GT SCH ×2 (05:29→18:04)
[2023-06-08] MEDS: HYDROGEN PEROXIDE 3% 118 ML BOTTLE TP SCH ×2 (07:37→19:04)
[2023-06-08 08:00] VITALS: TEMP 98.8
[2023-06-08] MEDS: REMEDY ESSENTIAL ZINC PASTE 113 GM TP SCH ×2 (08:36→21:25)
[2023-06-08] MEDS: DULOXETINE 20 MG CAPSULE.DR GT SCH (08:36)
[2023-06-08] MEDS: FINASTERIDE 5 MG TABLET GT SCH (08:36)
[2023-06-08] MEDS: ASCORBIC ACID 500 MG TABLET GT SCH (08:36)
[2023-06-08] MEDS: VITAMINS A AND D OINT 42 GM TUBE TP SCH (08:36)
[2023-06-08 20:00] VITALS: TEMP 98.7
[2023-06-08] MEDS: PROTEIN SUPPLEMENT (PROSTAT) 30 ML LIQUID GT SCH (21:24)
[2023-06-08] MEDS: MULTIVIT, IRON, MIN NO. 8, FA TABLET GT SCH (21:24)
[2023-06-09] MEDS: SIMETHICONE 80 MG TAB.CHEW GT SCH ×4 (00:37→18:06)
[2023-06-09] MEDS: JEVITY 1.2 1000 ML LIQUID GT PRN (00:37)
[2023-06-09] MEDS: ACIDOPHILUS/BULGARICUS CHEW TAB GT SCH ×2 (05:50→18:06)
[2023-06-09] MEDS: OMEPRAZOLE 20 MG CAPSULE.DR GT SCH (05:50)
[2023-06-09] MEDS: BACLOFEN 10 MG TABLET GT SCH ×3 (05:50→21:51)
[2023-06-09] MEDS: NUTRISOURCE FIBER 4 GM PACKET GT SCH ×2 (05:50→18:06)
[2023-06-09 08:00] VITALS: TEMP 98.2
[2023-06-09] MEDS: HYDROGEN PEROXIDE 3% 118 ML BOTTLE TP SCH ×2 (08:45→21:00)
[2023-06-09] MEDS: DULOXETINE 20 MG CAPSULE.DR GT SCH (08:47)
[2023-06-09] MEDS: HARRIS FLUSH ENEMA PR SCH (08:49)
[2023-06-09] MEDS: REMEDY ESSENTIAL ZINC PASTE 113 GM TP SCH ×2 (08:49→20:00)
[2023-06-09] MEDS: VITAMINS A AND D OINT 42 GM TUBE TP SCH (08:49)
[2023-06-09] MEDS: FINASTERIDE 5 MG TABLET GT SCH (08:49)
[2023-06-09] MEDS: ASCORBIC ACID 500 MG TABLET GT SCH (08:49)
[2023-06-09] MEDS: MAGNESIUM HYDROXIDE 30 ML LIQUID UDC GT PRN (13:02)
[2023-06-09 19:37] VITALS: TEMP 98.6
[2023-06-09] MEDS: PROTEIN SUPPLEMENT (PROSTAT) 30 ML LIQUID GT SCH (20:00)
[2023-06-09] MEDS: MULTIVIT, IRON, MIN NO. 8, FA TABLET GT SCH (20:00)
[2023-06-10] MEDS: OMEPRAZOLE 20 MG CAPSULE.DR GT SCH (05:42)
[2023-06-10] MEDS: NUTRISOURCE FIBER 4 GM PACKET GT SCH ×2 (05:42→17:27)
[2023-06-10] MEDS: ACIDOPHILUS/BULGARICUS CHEW TAB GT SCH ×2 (05:42→17:27)
[2023-06-10] MEDS: BACLOFEN 10 MG TABLET GT SCH ×3 (05:42→21:21)
[2023-06-10] MEDS: SIMETHICONE 80 MG TAB.CHEW GT SCH ×5 (05:45→23:12)
[2023-06-10 07:28] VITALS: TEMP 97.8
[2023-06-10] MEDS: ASCORBIC ACID 500 MG TABLET GT SCH (08:49)
[2023-06-10] MEDS: DULOXETINE 20 MG CAPSULE.DR GT SCH (08:49)
[2023-06-10] MEDS: REMEDY ESSENTIAL ZINC PASTE 113 GM TP SCH ×2 (08:49→20:26)
[2023-06-10] MEDS: VITAMINS A AND D 5 GM UD PKT TP SCH (08:49)
[2023-06-10] MEDS: FINASTERIDE 5 MG TABLET GT SCH (08:49)
[2023-06-10] MEDS: HYDROGEN PEROXIDE 3% 118 ML BOTTLE TP SCH ×2 (09:44→21:59)
[2023-06-10] MEDS: JEVITY 1.2 1000 ML LIQUID GT PRN (11:53)
[2023-06-10 19:40] VITALS: TEMP 98
[2023-06-10] MEDS: MULTIVIT, IRON, MIN NO. 8, FA TABLET GT SCH (20:26)
[2023-06-10] MEDS: PROTEIN SUPPLEMENT (PROSTAT) 30 ML LIQUID GT SCH (20:26)
[2023-06-11] MEDS: JEVITY 1.2 1000 ML LIQUID GT PRN ×2 (03:23→17:32)
[2023-06-11] MEDS: NUTRISOURCE FIBER 4 GM PACKET GT SCH ×2 (05:21→17:31)
[2023-06-11] MEDS: BACLOFEN 10 MG TABLET GT SCH ×3 (05:21→21:16)
[2023-06-11] MEDS: ACIDOPHILUS/BULGARICUS CHEW TAB GT SCH ×2 (05:21→17:30)
[2023-06-11] MEDS: SIMETHICONE 80 MG TAB.CHEW GT SCH ×3 (05:21→17:30)
[2023-06-11] MEDS: OMEPRAZOLE 20 MG CAPSULE.DR GT SCH (05:22)
[2023-06-11 07:22] LABS: BASOPHILS % (AUTO) 0.2 % (0.0-2.0); EOSINOPHILS # (AUTO) 0.2 K/uL (0.0-0.7); HEMATOCRIT 39.3 % (36.7-47.1); LYMPHOCYTES # (AUTO) 1.7 K/uL (0.8-4.8); LYMPHOCYTES % (AUTO) 21.2 % (20.5-51.5); MEAN CORPUSCULAR HEMOGLOBIN 27.9 uug (23.8-33.4); MEAN CORPUSCULAR HGB CONC 33 g/dL (32.5-36.3); MONOCYTES # (AUTO) 0.7 K/uL (0.1-1.30); MONOCYTES % (AUTO) 8.4 % (0.0-11.0); NEUTROPHILS # (AUTO) 5.2 K/uL (1.8-8.9); NEUTROPHILS % (AUTO) 67.2 % (38.5-71.5); PLATELET COUNT (AUTO) 261 K/uL (152-348); RED BLOOD CELL COUNT(AUTO) 4.68 MIL/uL (4.06-5.63); RED CELL DISTRIBUTION WIDTH 14.6 % (12.1-16.2); WHITE BLOOD COUNT (AUTO) 7.8 K/uL (3.6-10.2)
[2023-06-11 07:36] LABS: DIFFERENTIAL COMMENT 1
[2023-06-11 07:56] LABS: CARBON DIOXIDE 27 mmol/L (21-32); CHLORIDE 103 mmol/L (98-107); CREATININE 0.7 mg/dL (0.6-1.3); GLUCOSE 108 mg/dL (74-106); MAGNESIUM 2.1 mg/dL (1.8-2.4); PHOSPHOROUS 3.3 mg/dL (2.5-4.9); POTASSIUM 4.5 mmol/L (3.5-5.1); SODIUM SERUM 136 mmol/L (136-145); UREA NITROGEN, BLOOD 31 mg/dL (7-18)
[2023-06-11 08:00] VITALS: TEMP 98.9
[2023-06-11] MEDS: REMEDY ESSENTIAL ZINC PASTE 113 GM TP SCH ×2 (09:07→20:29)
[2023-06-11] MEDS: VITAMINS A AND D 5 GM UD PKT TP SCH (09:07)
[2023-06-11] MEDS: FINASTERIDE 5 MG TABLET GT SCH (09:07)
[2023-06-11] MEDS: ASCORBIC ACID 500 MG TABLET GT SCH (09:07)
[2023-06-11] MEDS: DULOXETINE 20 MG CAPSULE.DR GT SCH (09:07)
[2023-06-11] MEDS: HYDROGEN PEROXIDE 3% 118 ML BOTTLE TP SCH ×2 (09:10→20:58)
[2023-06-11 20:09] VITALS: TEMP 97.7
[2023-06-11] MEDS: MULTIVIT, IRON, MIN NO. 8, FA TABLET GT SCH (20:29)
[2023-06-11] MEDS: PROTEIN SUPPLEMENT (PROSTAT) 30 ML LIQUID GT SCH (20:29)
[2023-06-12] MEDS: SIMETHICONE 80 MG TAB.CHEW GT SCH ×5 (00:38→23:26)
[2023-06-12] MEDS: NUTRISOURCE FIBER 4 GM PACKET GT SCH ×2 (05:17→17:28)
[2023-06-12] MEDS: BACLOFEN 10 MG TABLET GT SCH ×3 (05:17→22:00)
[2023-06-12] MEDS: ACIDOPHILUS/BULGARICUS CHEW TAB GT SCH ×2 (05:17→17:28)
[2023-06-12] MEDS: OMEPRAZOLE 20 MG CAPSULE.DR GT SCH (05:17)
[2023-06-12 08:00] VITALS: TEMP 97.6
[2023-06-12] MEDS: HYDROGEN PEROXIDE 3% 118 ML BOTTLE TP SCH ×2 (08:20→23:09)
[2023-06-12] MEDS: REMEDY ESSENTIAL ZINC PASTE 113 GM TP SCH ×2 (09:15→21:00)
[2023-06-12] MEDS: FINASTERIDE 5 MG TABLET GT SCH (09:15)
[2023-06-12] MEDS: VITAMINS A AND D 5 GM UD PKT TP SCH (09:15)
[2023-06-12] MEDS: ASCORBIC ACID 500 MG TABLET GT SCH (09:15)
[2023-06-12] MEDS: DULOXETINE 20 MG CAPSULE.DR GT SCH (09:15)
[2023-06-12] MEDS: HARRIS FLUSH ENEMA PR SCH (09:15)
[2023-06-12] MEDS: JEVITY 1.2 1000 ML LIQUID GT PRN (14:57)
[2023-06-12 20:05] VITALS: TEMP 98.5
[2023-06-12] MEDS: PROTEIN SUPPLEMENT (PROSTAT) 30 ML LIQUID GT SCH (21:00)
[2023-06-12] MEDS: MULTIVIT, IRON, MIN NO. 8, FA TABLET GT SCH (21:00)
[2023-06-13] MEDS: NUTRISOURCE FIBER 4 GM PACKET GT SCH ×2 (06:31→17:55)
[2023-06-13] MEDS: SIMETHICONE 80 MG TAB.CHEW GT SCH ×3 (06:31→17:55)
[2023-06-13] MEDS: ACIDOPHILUS/BULGARICUS CHEW TAB GT SCH ×2 (06:31→17:55)
[2023-06-13] MEDS: OMEPRAZOLE 20 MG CAPSULE.DR GT SCH (06:31)
[2023-06-13] MEDS: BACLOFEN 10 MG TABLET GT SCH ×3 (06:31→22:20)
[2023-06-13 08:00] VITALS: TEMP 98
[2023-06-13] MEDS: HYDROGEN PEROXIDE 3% 118 ML BOTTLE TP SCH ×2 (09:00→21:00)
[2023-06-13] MEDS: DULOXETINE 20 MG CAPSULE.DR GT SCH (09:14)
[2023-06-13] MEDS: ASCORBIC ACID 500 MG TABLET GT SCH (09:15)
[2023-06-13] MEDS: FINASTERIDE 5 MG TABLET GT SCH (09:15)
[2023-06-13] MEDS: VITAMINS A AND D 5 GM UD PKT TP SCH (09:15)
[2023-06-13] MEDS: REMEDY ESSENTIAL ZINC PASTE 113 GM TP SCH ×2 (09:15→21:00)
[2023-06-13 20:10] VITALS: TEMP 98.8
[2023-06-13] MEDS: MULTIVIT, IRON, MIN NO. 8, FA TABLET GT SCH (21:00)
[2023-06-13] MEDS: PROTEIN SUPPLEMENT (PROSTAT) 30 ML LIQUID GT SCH (21:00)
[2023-06-14] MEDS: SIMETHICONE 80 MG TAB.CHEW GT SCH ×4 (00:25→17:04)
[2023-06-14] MEDS: JEVITY 1.2 1000 ML LIQUID GT PRN ×2 (03:00→18:50)
[2023-06-14] MEDS: OMEPRAZOLE 20 MG CAPSULE.DR GT SCH (06:00)
[2023-06-14] MEDS: ACIDOPHILUS/BULGARICUS CHEW TAB GT SCH ×2 (06:00→17:04)
[2023-06-14] MEDS: BACLOFEN 10 MG TABLET GT SCH ×3 (06:00→22:11)
[2023-06-14] MEDS: NUTRISOURCE FIBER 4 GM PACKET GT SCH ×2 (06:00→17:04)
[2023-06-14 08:00] VITALS: TEMP 97
[2023-06-14] MEDS: HYDROGEN PEROXIDE 3% 118 ML BOTTLE TP SCH ×2 (09:00→21:24)
[2023-06-14] MEDS: VITAMINS A AND D 5 GM UD PKT TP SCH (09:11)
[2023-06-14] MEDS: HARRIS FLUSH ENEMA PR SCH (09:11)
[2023-06-14] MEDS: FINASTERIDE 5 MG TABLET GT SCH (09:11)
[2023-06-14] MEDS: DULOXETINE 20 MG CAPSULE.DR GT SCH (09:11)
[2023-06-14] MEDS: REMEDY ESSENTIAL ZINC PASTE 113 GM TP SCH ×2 (09:11→20:39)
[2023-06-14] MEDS: ASCORBIC ACID 500 MG TABLET GT SCH (09:11)
[2023-06-14 10:00] VITALS: O2SAT 98
[2023-06-14 20:00] VITALS: TEMP 98.8
[2023-06-14] MEDS: MULTIVIT, IRON, MIN NO. 8, FA TABLET GT SCH (20:39)
[2023-06-14] MEDS: PROTEIN SUPPLEMENT (PROSTAT) 30 ML LIQUID GT SCH (20:39)
[2023-06-15] MEDS: SIMETHICONE 80 MG TAB.CHEW GT SCH ×5 (00:04→23:34)
[2023-06-15] MEDS: NUTRISOURCE FIBER 4 GM PACKET GT SCH ×2 (05:59→17:14)
[2023-06-15] MEDS: BACLOFEN 10 MG TABLET GT SCH ×3 (05:59→21:27)
[2023-06-15] MEDS: ACIDOPHILUS/BULGARICUS CHEW TAB GT SCH ×2 (05:59→17:14)
[2023-06-15] MEDS: OMEPRAZOLE 20 MG CAPSULE.DR GT SCH (05:59)
[2023-06-15 07:50] VITALS: TEMP 97.6
[2023-06-15] MEDS: DULOXETINE 20 MG CAPSULE.DR GT SCH (08:41)
[2023-06-15] MEDS: REMEDY ESSENTIAL ZINC PASTE 113 GM TP SCH ×2 (08:41→21:27)
[2023-06-15] MEDS: FINASTERIDE 5 MG TABLET GT SCH (08:41)
[2023-06-15] MEDS: ASCORBIC ACID 500 MG TABLET GT SCH (08:41)
[2023-06-15] MEDS: VITAMINS A AND D 5 GM UD PKT TP SCH (08:42)
[2023-06-15] MEDS: HYDROGEN PEROXIDE 3% 118 ML BOTTLE TP SCH ×2 (09:10→19:16)
[2023-06-15] MEDS: JEVITY 1.2 1000 ML LIQUID GT PRN (12:50)
[2023-06-15 20:00] VITALS: TEMP 99
[2023-06-15] MEDS: MULTIVIT, IRON, MIN NO. 8, FA TABLET GT SCH (21:27)
[2023-06-15] MEDS: PROTEIN SUPPLEMENT (PROSTAT) 30 ML LIQUID GT SCH (21:27)
[2023-06-16] MEDS: JEVITY 1.2 1000 ML LIQUID GT PRN ×2 (03:30→22:41)
[2023-06-16] MEDS: NUTRISOURCE FIBER 4 GM PACKET GT SCH ×2 (05:23→17:19)
[2023-06-16] MEDS: BACLOFEN 10 MG TABLET GT SCH ×3 (05:26→22:35)
[2023-06-16] MEDS: ACIDOPHILUS/BULGARICUS CHEW TAB GT SCH ×3 (05:27→17:19)
[2023-06-16] MEDS: OMEPRAZOLE 20 MG CAPSULE.DR GT SCH (05:27)
[2023-06-16] MEDS: SIMETHICONE 80 MG TAB.CHEW GT SCH ×3 (05:27→17:19)
[2023-06-16] MEDS: HYDROGEN PEROXIDE 3% 118 ML BOTTLE TP SCH ×2 (07:20→19:24)
[2023-06-16 07:38] VITALS: TEMP 98.6
[2023-06-16] MEDS: REMEDY ESSENTIAL ZINC PASTE 113 GM TP SCH ×2 (08:49→20:25)
[2023-06-16] MEDS: DULOXETINE 20 MG CAPSULE.DR GT SCH (08:50)
[2023-06-16] MEDS: FINASTERIDE 5 MG TABLET GT SCH (08:51)
[2023-06-16] MEDS: ASCORBIC ACID 500 MG TABLET GT SCH (08:58)
[2023-06-16] MEDS: VITAMINS A AND D 5 GM UD PKT TP SCH (08:58)
[2023-06-16] MEDS: HARRIS FLUSH ENEMA PR SCH (08:59)
[2023-06-16 20:00] VITALS: TEMP 98.8
[2023-06-16] MEDS: PROTEIN SUPPLEMENT (PROSTAT) 30 ML LIQUID GT SCH (20:24)
[2023-06-16] MEDS: MULTIVIT, IRON, MIN NO. 8, FA TABLET GT SCH (20:24)
[2023-06-17] MEDS: SIMETHICONE 80 MG TAB.CHEW GT SCH ×5 (00:05→23:19)
[2023-06-17] MEDS: OMEPRAZOLE 20 MG CAPSULE.DR GT SCH (06:11)
[2023-06-17] MEDS: NUTRISOURCE FIBER 4 GM PACKET GT SCH ×2 (06:11→17:17)
[2023-06-17] MEDS: ACIDOPHILUS/BULGARICUS CHEW TAB GT SCH ×2 (06:11→17:17)
[2023-06-17] MEDS: BACLOFEN 10 MG TABLET GT SCH ×3 (06:11→21:36)
[2023-06-17 08:02] VITALS: TEMP 98.3
[2023-06-17] MEDS: FINASTERIDE 5 MG TABLET GT SCH (08:45)
[2023-06-17] MEDS: DULOXETINE 20 MG CAPSULE.DR GT SCH (08:45)
[2023-06-17] MEDS: REMEDY ESSENTIAL ZINC PASTE 113 GM TP SCH ×2 (08:46→20:22)
[2023-06-17] MEDS: VITAMINS A AND D 5 GM UD PKT TP SCH (08:46)
[2023-06-17] MEDS: ASCORBIC ACID 500 MG TABLET GT SCH (08:46)
[2023-06-17] MEDS: HYDROGEN PEROXIDE 3% 118 ML BOTTLE TP SCH ×2 (09:17→20:44)
[2023-06-17 19:53] VITALS: TEMP 98.6
[2023-06-17] MEDS: MULTIVIT, IRON, MIN NO. 8, FA TABLET GT SCH (20:22)
[2023-06-17] MEDS: PROTEIN SUPPLEMENT (PROSTAT) 30 ML LIQUID GT SCH (20:22)
[2023-06-18] MEDS: BACLOFEN 10 MG TABLET GT SCH ×3 (05:11→22:22)
[2023-06-18] MEDS: OMEPRAZOLE 20 MG CAPSULE.DR GT SCH (05:11)
[2023-06-18] MEDS: SIMETHICONE 80 MG TAB.CHEW GT SCH ×3 (05:11→17:02)
[2023-06-18] MEDS: NUTRISOURCE FIBER 4 GM PACKET GT SCH ×2 (05:11→17:02)
[2023-06-18 07:34] VITALS: TEMP 98.5
[2023-06-18] MEDS: DULOXETINE 20 MG CAPSULE.DR GT SCH (09:06)
[2023-06-18] MEDS: ASCORBIC ACID 500 MG TABLET GT SCH (09:06)
[2023-06-18] MEDS: REMEDY ESSENTIAL ZINC PASTE 113 GM TP SCH ×2 (09:06→20:27)
[2023-06-18] MEDS: VITAMINS A AND D 5 GM UD PKT TP SCH (09:06)
[2023-06-18] MEDS: FINASTERIDE 5 MG TABLET GT SCH (09:06)
[2023-06-18] MEDS: HYDROGEN PEROXIDE 3% 118 ML BOTTLE TP SCH ×2 (09:19→21:04)
[2023-06-18] MEDS: ACIDOPHILUS/BULGARICUS CHEW TAB GT SCH (17:02)
[2023-06-18 19:54] VITALS: TEMP 98.6
[2023-06-18] MEDS: PROTEIN SUPPLEMENT (PROSTAT) 30 ML LIQUID GT SCH (20:25)
[2023-06-18] MEDS: MULTIVIT, IRON, MIN NO. 8, FA TABLET GT SCH (20:26)
[2023-06-19] MEDS: JEVITY 1.2 1000 ML LIQUID GT PRN (02:00)
[2023-06-19] MEDS: BACLOFEN 10 MG TABLET GT SCH ×3 (05:09→21:59)
[2023-06-19] MEDS: ACIDOPHILUS/BULGARICUS CHEW TAB GT SCH ×2 (05:09→17:43)
[2023-06-19] MEDS: SIMETHICONE 80 MG TAB.CHEW GT SCH ×4 (05:11→17:43)
[2023-06-19] MEDS: OMEPRAZOLE 20 MG CAPSULE.DR GT SCH (05:12)
[2023-06-19] MEDS: NUTRISOURCE FIBER 4 GM PACKET GT SCH ×2 (05:12→17:43)
[2023-06-19] MEDS: HARRIS FLUSH ENEMA PR PRN (05:14)
[2023-06-19 07:27] VITALS: TEMP 98.1
[2023-06-19] MEDS: REMEDY ESSENTIAL ZINC PASTE 113 GM TP SCH ×2 (08:24→21:59)
[2023-06-19] MEDS: ASCORBIC ACID 500 MG TABLET GT SCH (08:24)
[2023-06-19] MEDS: FINASTERIDE 5 MG TABLET GT SCH (08:24)
[2023-06-19] MEDS: HARRIS FLUSH ENEMA PR SCH (08:24)
[2023-06-19] MEDS: VITAMINS A AND D 5 GM UD PKT TP SCH (08:24)
[2023-06-19] MEDS: DULOXETINE 20 MG CAPSULE.DR GT SCH (08:24)
[2023-06-19] MEDS: HYDROGEN PEROXIDE 3% 118 ML BOTTLE TP SCH ×2 (09:00→19:15)
[2023-06-19 19:47] VITALS: TEMP 98.5
[2023-06-19] MEDS: PROTEIN SUPPLEMENT (PROSTAT) 30 ML LIQUID GT SCH (21:59)
[2023-06-19] MEDS: MULTIVIT, IRON, MIN NO. 8, FA TABLET GT SCH (21:59)
[2023-06-20] MEDS: SIMETHICONE 80 MG TAB.CHEW GT SCH ×4 (00:08→17:17)
[2023-06-20] MEDS: JEVITY 1.2 1000 ML LIQUID GT PRN ×2 (00:08→18:57)
[2023-06-20] MEDS: HARRIS FLUSH ENEMA PR SCH (03:00)
[2023-06-20] MEDS: ACIDOPHILUS/BULGARICUS CHEW TAB GT SCH ×2 (05:16→17:17)
[2023-06-20] MEDS: BACLOFEN 10 MG TABLET GT SCH ×3 (05:16→22:00)
[2023-06-20] MEDS: OMEPRAZOLE 20 MG CAPSULE.DR GT SCH (05:16)
[2023-06-20] MEDS: NUTRISOURCE FIBER 4 GM PACKET GT SCH ×2 (05:16→17:17)
[2023-06-20 08:00] VITALS: TEMP 98.5
[2023-06-20] MEDS: HYDROGEN PEROXIDE 3% 118 ML BOTTLE TP SCH ×2 (08:53→21:21)
[2023-06-20] MEDS: VITAMINS A AND D 5 GM UD PKT TP SCH (09:11)
[2023-06-20] MEDS: FINASTERIDE 5 MG TABLET GT SCH (09:11)
[2023-06-20] MEDS: ASCORBIC ACID 500 MG TABLET GT SCH (09:11)
[2023-06-20] MEDS: REMEDY ESSENTIAL ZINC PASTE 113 GM TP SCH ×2 (09:11→20:25)
[2023-06-20] MEDS: DULOXETINE 20 MG CAPSULE.DR GT SCH (09:11)
[2023-06-20 19:45] VITALS: TEMP 98.6
[2023-06-20 19:48] VITALS: TEMP 98.1
[2023-06-20] MEDS: PROTEIN SUPPLEMENT (PROSTAT) 30 ML LIQUID GT SCH (20:24)
[2023-06-20] MEDS: MULTIVIT, IRON, MIN NO. 8, FA TABLET GT SCH (20:24)
[2023-06-21] MEDS: SIMETHICONE 80 MG TAB.CHEW GT SCH ×4 (00:18→17:16)
[2023-06-21] MEDS: HARRIS FLUSH ENEMA PR PRN (03:30)
[2023-06-21] MEDS: ACIDOPHILUS/BULGARICUS CHEW TAB GT SCH ×2 (05:23→17:16)
[2023-06-21] MEDS: NUTRISOURCE FIBER 4 GM PACKET GT SCH ×2 (05:23→17:16)
[2023-06-21] MEDS: BACLOFEN 10 MG TABLET GT SCH ×3 (05:23→22:02)
[2023-06-21] MEDS: OMEPRAZOLE 20 MG CAPSULE.DR GT SCH (05:23)
[2023-06-21 08:00] VITALS: TEMP 97.7
[2023-06-21] MEDS: HYDROGEN PEROXIDE 3% 118 ML BOTTLE TP SCH ×2 (08:24→22:29)
[2023-06-21] MEDS: DULOXETINE 20 MG CAPSULE.DR GT SCH (09:31)
[2023-06-21] MEDS: ASCORBIC ACID 500 MG TABLET GT SCH (09:31)
[2023-06-21] MEDS: FINASTERIDE 5 MG TABLET GT SCH (09:31)
[2023-06-21] MEDS: VITAMINS A AND D 5 GM UD PKT TP SCH (09:32)
[2023-06-21] MEDS: REMEDY ESSENTIAL ZINC PASTE 113 GM TP SCH ×2 (09:32→20:23)
[2023-06-21] MEDS: HARRIS FLUSH ENEMA PR SCH (09:32)
[2023-06-21] MEDS: JEVITY 1.2 1000 ML LIQUID GT PRN (17:17)
[2023-06-21 19:39] VITALS: TEMP 98.1
[2023-06-21] MEDS: PROTEIN SUPPLEMENT (PROSTAT) 30 ML LIQUID GT SCH (20:21)
[2023-06-21] MEDS: MULTIVIT, IRON, MIN NO. 8, FA TABLET GT SCH (20:22)
[2023-06-22] MEDS: BACLOFEN 10 MG TABLET GT SCH ×3 (05:36→22:45)
[2023-06-22] MEDS: NUTRISOURCE FIBER 4 GM PACKET GT SCH ×2 (05:36→17:20)
[2023-06-22] MEDS: ACIDOPHILUS/BULGARICUS CHEW TAB GT SCH ×2 (05:36→17:20)
[2023-06-22] MEDS: OMEPRAZOLE 20 MG CAPSULE.DR GT SCH (05:36)
[2023-06-22] MEDS: SIMETHICONE 80 MG TAB.CHEW GT SCH ×4 (05:37→17:20)
[2023-06-22] MEDS: HYDROGEN PEROXIDE 3% 118 ML BOTTLE TP SCH ×2 (07:20→21:09)
[2023-06-22 07:42] VITALS: TEMP 97.7
[2023-06-22] MEDS: DULOXETINE 20 MG CAPSULE.DR GT SCH (08:29)
[2023-06-22] MEDS: ASCORBIC ACID 500 MG TABLET GT SCH (08:29)
[2023-06-22] MEDS: FINASTERIDE 5 MG TABLET GT SCH (08:29)
[2023-06-22] MEDS: REMEDY ESSENTIAL ZINC PASTE 113 GM TP SCH ×2 (08:29→20:15)
[2023-06-22] MEDS: VITAMINS A AND D 5 GM UD PKT TP SCH (08:29)
[2023-06-22] MEDS: JEVITY 1.2 1000 ML LIQUID GT PRN (12:34)
[2023-06-22 19:51] VITALS: TEMP 97.8
[2023-06-22] MEDS: PROTEIN SUPPLEMENT (PROSTAT) 30 ML LIQUID GT SCH (20:15)
[2023-06-22] MEDS: MULTIVIT, IRON, MIN NO. 8, FA TABLET GT SCH (20:15)
[2023-06-23] MEDS: BACLOFEN 10 MG TABLET GT SCH ×3 (05:02→21:58)
[2023-06-23] MEDS: NUTRISOURCE FIBER 4 GM PACKET GT SCH ×2 (05:02→17:05)
[2023-06-23] MEDS: OMEPRAZOLE 20 MG CAPSULE.DR GT SCH (05:02)
[2023-06-23] MEDS: SIMETHICONE 80 MG TAB.CHEW GT SCH ×5 (05:02→21:58)
[2023-06-23] MEDS: ACIDOPHILUS/BULGARICUS CHEW TAB GT SCH ×2 (05:02→17:05)
[2023-06-23 07:42] VITALS: TEMP 97.7
[2023-06-23] MEDS: HYDROGEN PEROXIDE 3% 118 ML BOTTLE TP SCH ×2 (08:39→19:07)
[2023-06-23] MEDS: HARRIS FLUSH ENEMA PR SCH (09:15)
[2023-06-23] MEDS: FINASTERIDE 5 MG TABLET GT SCH (09:15)
[2023-06-23] MEDS: REMEDY ESSENTIAL ZINC PASTE 113 GM TP SCH ×2 (09:15→21:58)
[2023-06-23] MEDS: ASCORBIC ACID 500 MG TABLET GT SCH (09:15)
[2023-06-23] MEDS: VITAMINS A AND D 5 GM UD PKT TP SCH (09:15)
[2023-06-23] MEDS: DULOXETINE 20 MG CAPSULE.DR GT SCH (09:15)
[2023-06-23 20:00] VITALS: TEMP 97
[2023-06-23] MEDS: PROTEIN SUPPLEMENT (PROSTAT) 30 ML LIQUID GT SCH (21:58)
[2023-06-23] MEDS: MULTIVIT, IRON, MIN NO. 8, FA TABLET GT SCH (21:58)
[2023-06-24] MEDS: JEVITY 1.2 1000 ML LIQUID GT PRN ×2 (00:42→22:12)
[2023-06-24] MEDS: HARRIS FLUSH ENEMA PR PRN (00:55)
[2023-06-24] MEDS: MAGNESIUM HYDROXIDE 30 ML LIQUID UDC GT PRN (01:49)
[2023-06-24] MEDS: ACETAMINOPHEN 650 MG/20 ML UDC- SA PATIENTS-PAIN ONLY GT PRN ×2 (01:49→05:52)
[2023-06-24] MEDS: BACLOFEN 10 MG TABLET GT SCH ×3 (05:45→21:33)
[2023-06-24] MEDS: ACIDOPHILUS/BULGARICUS CHEW TAB GT SCH ×2 (05:45→17:00)
[2023-06-24] MEDS: NUTRISOURCE FIBER 4 GM PACKET GT SCH ×2 (05:45→17:00)
[2023-06-24] MEDS: SIMETHICONE 80 MG TAB.CHEW GT SCH ×3 (05:45→17:00)
[2023-06-24] MEDS: OMEPRAZOLE 20 MG CAPSULE.DR GT SCH (05:45)
[2023-06-24 07:33] VITALS: TEMP 97.5
[2023-06-24] MEDS: HYDROGEN PEROXIDE 3% 118 ML BOTTLE TP SCH ×2 (09:00→21:00)
[2023-06-24] MEDS: REMEDY ESSENTIAL ZINC PASTE 113 GM TP SCH ×2 (09:37→21:33)
[2023-06-24] MEDS: ASCORBIC ACID 500 MG TABLET GT SCH (09:37)
[2023-06-24] MEDS: DULOXETINE 20 MG CAPSULE.DR GT SCH (09:37)
[2023-06-24] MEDS: FINASTERIDE 5 MG TABLET GT SCH (09:37)
[2023-06-24] MEDS: VITAMINS A AND D 5 GM UD PKT TP SCH (09:38)
[2023-06-24 19:41] VITALS: TEMP 98.7
[2023-06-24] MEDS: MULTIVIT, IRON, MIN NO. 8, FA TABLET GT SCH (21:32)
[2023-06-24] MEDS: PROTEIN SUPPLEMENT (PROSTAT) 30 ML LIQUID GT SCH (21:32)
[2023-06-25] MEDS: SIMETHICONE 80 MG TAB.CHEW GT SCH ×4 (00:09→18:27)
[2023-06-25] MEDS: OMEPRAZOLE 20 MG CAPSULE.DR GT SCH (05:25)
[2023-06-25] MEDS: NUTRISOURCE FIBER 4 GM PACKET GT SCH ×2 (05:25→18:27)
[2023-06-25] MEDS: BACLOFEN 10 MG TABLET GT SCH ×3 (05:25→22:04)
[2023-06-25] MEDS: ACIDOPHILUS/BULGARICUS CHEW TAB GT SCH ×2 (05:25→18:27)
[2023-06-25 07:28] VITALS: TEMP 99.5
[2023-06-25 07:35] LABS: BASOPHILS % (AUTO) 0.3 % (0.0-2.0); EOSINOPHILS # (AUTO) 0.2 K/uL (0.0-0.7); EOSINOPHILS % (AUTO) 2.3 % (0.0-7.0); HEMATOCRIT 41.5 % (36.7-47.1); HEMOGLOBIN 13.6 g/dL (12.5-16.3); LYMPHOCYTES # (AUTO) 1.8 K/uL (0.8-4.8); LYMPHOCYTES % (AUTO) 21.7 % (20.5-51.5); MEAN CORPUSCULAR HEMOGLOBIN 27.9 uug (23.8-33.4); MEAN CORPUSCULAR HGB CONC 33 g/dL (32.5-36.3); MEAN CORPUSCULAR VOLUME 84.9 fL (73.0-96.2); MONOCYTES # (AUTO) 0.7 K/uL (0.1-1.30); MONOCYTES % (AUTO) 8.9 % (0.0-11.0); NEUTROPHILS # (AUTO) 5.5 K/uL (1.8-8.9); NEUTROPHILS % (AUTO) 66.8 % (38.5-71.5); PLATELET COUNT (AUTO) 208 K/uL (152-348); RED BLOOD CELL COUNT(AUTO) 4.89 MIL/uL (4.06-5.63); RED CELL DISTRIBUTION WIDTH 14.9 % (12.1-16.2); WHITE BLOOD COUNT (AUTO) 8.2 K/uL (3.6-10.2)
[2023-06-25 07:40] LABS: CALCIUM 8.8 mg/dL (8.5-10.1); CARBON DIOXIDE 26 mmol/L (21-32); CHLORIDE 99 mmol/L (98-107); CREATININE 0.5 mg/dL (0.6-1.3); GLUCOSE 104 mg/dL (74-106); MAGNESIUM 2.2 mg/dL (1.8-2.4); PHOSPHOROUS 3.2 mg/dL (2.5-4.9); SODIUM SERUM 129 mmol/L (136-145); UREA NITROGEN, BLOOD 27 mg/dL (7-18)
[2023-06-25 07:43] LABS: POTASSIUM 5.5 mmol/L (3.5-5.1)
[2023-06-25 07:50] LABS: DIFFERENTIAL COMMENT 1
[2023-06-25] MEDS: ASCORBIC ACID 500 MG TABLET GT SCH (08:52)
[2023-06-25] MEDS: VITAMINS A AND D 5 GM UD PKT TP SCH (08:52)
[2023-06-25] MEDS: DULOXETINE 20 MG CAPSULE.DR GT SCH (08:52)
[2023-06-25] MEDS: REMEDY ESSENTIAL ZINC PASTE 113 GM TP SCH ×2 (08:52→20:33)
[2023-06-25] MEDS: FINASTERIDE 5 MG TABLET GT SCH (08:52)
[2023-06-25] MEDS: HYDROGEN PEROXIDE 3% 118 ML BOTTLE TP SCH ×2 (09:00→21:00)
[2023-06-25] MEDS: JEVITY 1.2 1000 ML LIQUID GT PRN (12:11)
[2023-06-25 19:51] VITALS: TEMP 99.2
[2023-06-25] MEDS: MULTIVIT, IRON, MIN NO. 8, FA TABLET GT SCH (20:33)
[2023-06-25] MEDS: PROTEIN SUPPLEMENT (PROSTAT) 30 ML LIQUID GT SCH (20:33)
[2023-06-26] MEDS: SIMETHICONE 80 MG TAB.CHEW GT SCH ×4 (00:42→17:02)
[2023-06-26 00:49] VITALS: TEMP 98.2
[2023-06-26] MEDS: JEVITY 1.2 1000 ML LIQUID GT PRN (01:14)
[2023-06-26] MEDS: BACLOFEN 10 MG TABLET GT SCH ×3 (05:20→21:17)
[2023-06-26] MEDS: OMEPRAZOLE 20 MG CAPSULE.DR GT SCH (05:20)
[2023-06-26] MEDS: ACIDOPHILUS/BULGARICUS CHEW TAB GT SCH ×2 (05:20→17:02)
[2023-06-26] MEDS: NUTRISOURCE FIBER 4 GM PACKET GT SCH ×2 (05:20→17:02)
[2023-06-26 07:29] VITALS: TEMP 98.9
[2023-06-26] MEDS: HYDROGEN PEROXIDE 3% 118 ML BOTTLE TP SCH ×2 (09:08→20:41)
[2023-06-26] MEDS: ASCORBIC ACID 500 MG TABLET GT SCH (09:12)
[2023-06-26] MEDS: DULOXETINE 20 MG CAPSULE.DR GT SCH (09:12)
[2023-06-26] MEDS: FINASTERIDE 5 MG TABLET GT SCH (09:12)
[2023-06-26] MEDS: VITAMINS A AND D 5 GM UD PKT TP SCH (09:12)
[2023-06-26] MEDS: REMEDY ESSENTIAL ZINC PASTE 113 GM TP SCH ×2 (09:12→21:07)
[2023-06-26] MEDS: HARRIS FLUSH ENEMA PR SCH (09:21)
[2023-06-26 19:59] VITALS: TEMP 98.7
[2023-06-26] MEDS: PROTEIN SUPPLEMENT (PROSTAT) 30 ML LIQUID GT SCH (21:06)
[2023-06-26] MEDS: MULTIVIT, IRON, MIN NO. 8, FA TABLET GT SCH (21:07)
[2023-06-27] MEDS: SIMETHICONE 80 MG TAB.CHEW GT SCH ×5 (00:12→23:53)
[2023-06-27] MEDS: NUTRISOURCE FIBER 4 GM PACKET GT SCH ×2 (05:37→17:29)
[2023-06-27] MEDS: BACLOFEN 10 MG TABLET GT SCH ×3 (05:37→22:14)
[2023-06-27] MEDS: ACIDOPHILUS/BULGARICUS CHEW TAB GT SCH ×2 (05:37→17:29)
[2023-06-27] MEDS: OMEPRAZOLE 20 MG CAPSULE.DR GT SCH (05:37)
[2023-06-27 07:24] VITALS: TEMP 99.5
[2023-06-27] MEDS: VITAMINS A AND D 5 GM UD PKT TP SCH (08:56)
[2023-06-27] MEDS: REMEDY ESSENTIAL ZINC PASTE 113 GM TP SCH ×2 (08:56→20:36)
[2023-06-27] MEDS: FINASTERIDE 5 MG TABLET GT SCH (08:56)
[2023-06-27] MEDS: ASCORBIC ACID 500 MG TABLET GT SCH (08:56)
[2023-06-27] MEDS: DULOXETINE 20 MG CAPSULE.DR GT SCH (08:56)
[2023-06-27] MEDS: HYDROGEN PEROXIDE 3% 118 ML BOTTLE TP SCH ×2 (09:00→21:00)
[2023-06-27] MEDS: JEVITY 1.2 1000 ML LIQUID GT PRN (16:22)
[2023-06-27 20:00] VITALS: TEMP 99.4
[2023-06-27] MEDS: PROTEIN SUPPLEMENT (PROSTAT) 30 ML LIQUID GT SCH (20:36)
[2023-06-27] MEDS: MULTIVIT, IRON, MIN NO. 8, FA TABLET GT SCH (20:36)
[2023-06-28] MEDS: SIMETHICONE 80 MG TAB.CHEW GT SCH ×4 (05:42→23:34)
[2023-06-28] MEDS: ACIDOPHILUS/BULGARICUS CHEW TAB GT SCH ×2 (05:42→17:38)
[2023-06-28] MEDS: OMEPRAZOLE 20 MG CAPSULE.DR GT SCH (05:42)
[2023-06-28] MEDS: NUTRISOURCE FIBER 4 GM PACKET GT SCH ×2 (05:42→17:38)
[2023-06-28] MEDS: BACLOFEN 10 MG TABLET GT SCH ×3 (05:42→22:00)
[2023-06-28 08:02] VITALS: TEMP 98
[2023-06-28] MEDS: FINASTERIDE 5 MG TABLET GT SCH (08:53)
[2023-06-28] MEDS: ASCORBIC ACID 500 MG TABLET GT SCH (08:53)
[2023-06-28] MEDS: DULOXETINE 20 MG CAPSULE.DR GT SCH (08:53)
[2023-06-28] MEDS: HARRIS FLUSH ENEMA PR SCH (08:53)
[2023-06-28] MEDS: VITAMINS A AND D 5 GM UD PKT TP SCH (08:53)
[2023-06-28] MEDS: REMEDY ESSENTIAL ZINC PASTE 113 GM TP SCH ×2 (08:53→20:27)
[2023-06-28] MEDS: HYDROGEN PEROXIDE 3% 118 ML BOTTLE TP SCH ×2 (09:00→21:00)
[2023-06-28] MEDS: JEVITY 1.2 1000 ML LIQUID GT PRN (12:13)
[2023-06-28 20:00] VITALS: TEMP 98.6
[2023-06-28] MEDS: MULTIVIT, IRON, MIN NO. 8, FA TABLET GT SCH (20:27)
[2023-06-28] MEDS: PROTEIN SUPPLEMENT (PROSTAT) 30 ML LIQUID GT SCH (20:27)
[2023-06-29] MEDS: SIMETHICONE 80 MG TAB.CHEW GT SCH ×4 (05:33→23:30)
[2023-06-29] MEDS: OMEPRAZOLE 20 MG CAPSULE.DR GT SCH (05:33)
[2023-06-29] MEDS: ACIDOPHILUS/BULGARICUS CHEW TAB GT SCH ×2 (05:33→17:08)
[2023-06-29] MEDS: NUTRISOURCE FIBER 4 GM PACKET GT SCH ×2 (05:33→17:08)
[2023-06-29] MEDS: BACLOFEN 10 MG TABLET GT SCH ×3 (05:33→22:00)
[2023-06-29] MEDS: HYDROGEN PEROXIDE 3% 118 ML BOTTLE TP SCH ×2 (07:20→19:12)
[2023-06-29 07:52] VITALS: TEMP 98.4
[2023-06-29] MEDS: FINASTERIDE 5 MG TABLET GT SCH (08:57)
[2023-06-29] MEDS: VITAMINS A AND D 5 GM UD PKT TP SCH (08:57)
[2023-06-29] MEDS: DULOXETINE 20 MG CAPSULE.DR GT SCH (08:57)
[2023-06-29] MEDS: REMEDY ESSENTIAL ZINC PASTE 113 GM TP SCH ×2 (08:57→21:00)
[2023-06-29] MEDS: ASCORBIC ACID 500 MG TABLET GT SCH (08:57)
[2023-06-29] MEDS: JEVITY 1.2 1000 ML LIQUID GT PRN (09:21)
[2023-06-29 20:01] VITALS: TEMP 98.2
[2023-06-29] MEDS: PROTEIN SUPPLEMENT (PROSTAT) 30 ML LIQUID GT SCH (21:00)
[2023-06-29] MEDS: MULTIVIT, IRON, MIN NO. 8, FA TABLET GT SCH (21:00)
[2023-06-30] MEDS: BACLOFEN 10 MG TABLET GT SCH ×3 (05:52→22:30)
[2023-06-30] MEDS: SIMETHICONE 80 MG TAB.CHEW GT SCH ×3 (05:52→17:43)
[2023-06-30] MEDS: ACIDOPHILUS/BULGARICUS CHEW TAB GT SCH ×2 (05:52→17:43)
[2023-06-30] MEDS: OMEPRAZOLE 20 MG CAPSULE.DR GT SCH (05:53)
[2023-06-30] MEDS: NUTRISOURCE FIBER 4 GM PACKET GT SCH ×2 (05:53→17:43)
[2023-06-30 08:12] VITALS: TEMP 98.9
[2023-06-30 08:14] VITALS: TEMP 98.9
[2023-06-30] MEDS: HYDROGEN PEROXIDE 3% 118 ML BOTTLE TP SCH ×2 (09:03→20:36)
[2023-06-30] MEDS: HARRIS FLUSH ENEMA PR SCH (09:46)
[2023-06-30] MEDS: FINASTERIDE 5 MG TABLET GT SCH (09:46)
[2023-06-30] MEDS: ASCORBIC ACID 500 MG TABLET GT SCH (09:46)
[2023-06-30] MEDS: DULOXETINE 20 MG CAPSULE.DR GT SCH (09:46)
[2023-06-30] MEDS: VITAMINS A AND D 5 GM UD PKT TP SCH (09:47)
[2023-06-30] MEDS: REMEDY ESSENTIAL ZINC PASTE 113 GM TP SCH ×2 (09:47→20:17)
[2023-06-30] MEDS: JEVITY 1.2 1000 ML LIQUID GT PRN (17:43)
[2023-06-30 20:00] VITALS: TEMP 99.2
[2023-06-30] MEDS: PROTEIN SUPPLEMENT (PROSTAT) 30 ML LIQUID GT SCH (20:17)
[2023-06-30] MEDS: MULTIVIT, IRON, MIN NO. 8, FA TABLET GT SCH (20:17)
[2023-07-01] MEDS: SIMETHICONE 80 MG TAB.CHEW GT SCH ×5 (00:35→23:27)
[2023-07-01] MEDS: ACIDOPHILUS/BULGARICUS CHEW TAB GT SCH ×2 (06:13→17:30)
[2023-07-01] MEDS: BACLOFEN 10 MG TABLET GT SCH ×3 (06:13→22:28)
[2023-07-01] MEDS: OMEPRAZOLE 20 MG CAPSULE.DR GT SCH (06:13)
[2023-07-01] MEDS: NUTRISOURCE FIBER 4 GM PACKET GT SCH ×2 (06:14→17:31)
[2023-07-01 07:46] VITALS: TEMP 97.4
[2023-07-01 08:22] LABS: BASOPHILS % (AUTO) 0.4 % (0.0-2.0); EOSINOPHILS # (AUTO) 0.2 K/uL (0.0-0.7); EOSINOPHILS % (AUTO) 3.2 % (0.0-7.0); HEMATOCRIT 37.5 % (36.7-47.1); HEMOGLOBIN 12.5 g/dL (12.5-16.3); LYMPHOCYTES # (AUTO) 1.4 K/uL (0.8-4.8); LYMPHOCYTES % (AUTO) 23.6 % (20.5-51.5); MEAN CORPUSCULAR HEMOGLOBIN 28.2 uug (23.8-33.4); MEAN CORPUSCULAR HGB CONC 33 g/dL (32.5-36.3); MEAN CORPUSCULAR VOLUME 84.4 fL (73.0-96.2); MONOCYTES # (AUTO) 0.4 K/uL (0.1-1.30); MONOCYTES % (AUTO) 7.1 % (0.0-11.0); NEUTROPHILS # (AUTO) 3.9 K/uL (1.8-8.9); NEUTROPHILS % (AUTO) 65.7 % (38.5-71.5); PLATELET COUNT (AUTO) 196 K/uL (152-348); RED BLOOD CELL COUNT(AUTO) 4.44 MIL/uL (4.06-5.63); RED CELL DISTRIBUTION WIDTH 15.4 % (12.1-16.2); WHITE BLOOD COUNT (AUTO) 5.9 K/uL (3.6-10.2)
[2023-07-01 08:42] LABS: DIFFERENTIAL COMMENT 1
[2023-07-01 08:54] LABS: CREATININE 0.7 mg/dL (0.6-1.3); MAGNESIUM 2.2 mg/dL (1.8-2.4); PHOSPHOROUS 3.2 mg/dL (2.5-4.9); POTASSIUM 4.3 mmol/L (3.5-5.1)
[2023-07-01] MEDS: DULOXETINE 20 MG CAPSULE.DR GT SCH (09:19)
[2023-07-01] MEDS: FINASTERIDE 5 MG TABLET GT SCH (09:21)
[2023-07-01] MEDS: ASCORBIC ACID 500 MG TABLET GT SCH (09:21)
[2023-07-01] MEDS: VITAMINS A AND D 5 GM UD PKT TP SCH (09:22)
[2023-07-01] MEDS: REMEDY ESSENTIAL ZINC PASTE 113 GM TP SCH ×2 (09:22→20:21)
[2023-07-01] MEDS: HYDROGEN PEROXIDE 3% 118 ML BOTTLE TP SCH ×2 (09:23→21:00)
[2023-07-01] MEDS: JEVITY 1.2 1000 ML LIQUID GT PRN (12:39)
[2023-07-01] MEDS: POLYVINYL ALCOHOL OPHT DROPS 15 ML BOTTLE EACHEYE PRN (12:39)
[2023-07-01 19:45] VITALS: TEMP 98.6
[2023-07-01] MEDS: MULTIVIT, IRON, MIN NO. 8, FA TABLET GT SCH (20:21)
[2023-07-01] MEDS: PROTEIN SUPPLEMENT (PROSTAT) 30 ML LIQUID GT SCH (20:21)
[2023-07-02] MEDS: JEVITY 1.2 1000 ML LIQUID GT PRN (02:15)
[2023-07-02] MEDS: ACIDOPHILUS/BULGARICUS CHEW TAB GT SCH ×2 (05:36→17:12)
[2023-07-02] MEDS: BACLOFEN 10 MG TABLET GT SCH ×3 (05:36→22:03)
[2023-07-02] MEDS: SIMETHICONE 80 MG TAB.CHEW GT SCH ×3 (05:36→17:12)
[2023-07-02] MEDS: OMEPRAZOLE 20 MG CAPSULE.DR GT SCH (05:36)
[2023-07-02] MEDS: NUTRISOURCE FIBER 4 GM PACKET GT SCH ×2 (05:36→17:12)
[2023-07-02 07:22] VITALS: TEMP 98.5
[2023-07-02] MEDS: HYDROGEN PEROXIDE 3% 118 ML BOTTLE TP SCH ×2 (09:07→21:26)
[2023-07-02] MEDS: ASCORBIC ACID 500 MG TABLET GT SCH (09:44)
[2023-07-02] MEDS: REMEDY ESSENTIAL ZINC PASTE 113 GM TP SCH ×2 (09:44→20:24)
[2023-07-02] MEDS: FINASTERIDE 5 MG TABLET GT SCH (09:44)
[2023-07-02] MEDS: VITAMINS A AND D 5 GM UD PKT TP SCH (09:44)
[2023-07-02] MEDS: DULOXETINE 20 MG CAPSULE.DR GT SCH (09:44)
[2023-07-02] MEDS: NEOMY/BACITRA/POLYMYXIN B OINT UD PACKET TP SCH (12:26)
[2023-07-02 19:48] VITALS: TEMP 98.2
[2023-07-02] MEDS: MULTIVIT, IRON, MIN NO. 8, FA TABLET GT SCH (20:24)
[2023-07-02] MEDS: PROTEIN SUPPLEMENT (PROSTAT) 30 ML LIQUID GT SCH (20:24)
[2023-07-03] MEDS: SIMETHICONE 80 MG TAB.CHEW GT SCH ×5 (05:07→23:00)
[2023-07-03] MEDS: NUTRISOURCE FIBER 4 GM PACKET GT SCH ×2 (05:07→17:11)
[2023-07-03] MEDS: ACIDOPHILUS/BULGARICUS CHEW TAB GT SCH ×2 (05:07→17:11)
[2023-07-03] MEDS: BACLOFEN 10 MG TABLET GT SCH ×3 (05:07→22:00)
[2023-07-03] MEDS: OMEPRAZOLE 20 MG CAPSULE.DR GT SCH (05:07)
[2023-07-03 07:29] VITALS: TEMP 98.4
[2023-07-03] MEDS: DULOXETINE 20 MG CAPSULE.DR GT SCH (08:56)
[2023-07-03] MEDS: ASCORBIC ACID 500 MG TABLET GT SCH (08:56)
[2023-07-03] MEDS: HARRIS FLUSH ENEMA PR SCH (08:56)
[2023-07-03] MEDS: REMEDY ESSENTIAL ZINC PASTE 113 GM TP SCH ×2 (08:56→20:29)
[2023-07-03] MEDS: FINASTERIDE 5 MG TABLET GT SCH (08:56)
[2023-07-03] MEDS: VITAMINS A AND D 5 GM UD PKT TP SCH (08:57)
[2023-07-03] MEDS: NEOMY/BACITRA/POLYMYXIN B OINT UD PACKET TP SCH (08:57)
[2023-07-03] MEDS: HYDROGEN PEROXIDE 3% 118 ML BOTTLE TP SCH ×2 (09:20→20:29)
[2023-07-03 19:46] VITALS: TEMP 98
[2023-07-03] MEDS: MULTIVIT, IRON, MIN NO. 8, FA TABLET GT SCH (20:29)
[2023-07-03] MEDS: PROTEIN SUPPLEMENT (PROSTAT) 30 ML LIQUID GT SCH (20:29)
[2023-07-04] MEDS: JEVITY 1.2 1000 ML LIQUID GT PRN (02:46)
[2023-07-04] MEDS: SIMETHICONE 80 MG TAB.CHEW GT SCH ×3 (05:18→18:26)
[2023-07-04] MEDS: BACLOFEN 10 MG TABLET GT SCH ×3 (05:18→22:45)
[2023-07-04] MEDS: ACIDOPHILUS/BULGARICUS CHEW TAB GT SCH ×2 (05:18→18:26)
[2023-07-04] MEDS: OMEPRAZOLE 20 MG CAPSULE.DR GT SCH (05:18)
[2023-07-04] MEDS: NUTRISOURCE FIBER 4 GM PACKET GT SCH ×2 (05:18→18:26)
[2023-07-04 08:00] VITALS: TEMP 98.5
[2023-07-04] MEDS: ASCORBIC ACID 500 MG TABLET GT SCH (09:02)
[2023-07-04] MEDS: FINASTERIDE 5 MG TABLET GT SCH (09:02)
[2023-07-04] MEDS: DULOXETINE 20 MG CAPSULE.DR GT SCH (09:02)
[2023-07-04] MEDS: REMEDY ESSENTIAL ZINC PASTE 113 GM TP SCH ×2 (09:03→20:02)
[2023-07-04] MEDS: NEOMY/BACITRA/POLYMYXIN B OINT UD PACKET TP SCH (09:03)
[2023-07-04] MEDS: VITAMINS A AND D 5 GM UD PKT TP SCH (09:03)
[2023-07-04] MEDS: HYDROGEN PEROXIDE 3% 118 ML BOTTLE TP SCH ×2 (09:47→20:57)
[2023-07-04 19:49] VITALS: TEMP 98.1
[2023-07-04] MEDS: MULTIVIT, IRON, MIN NO. 8, FA TABLET GT SCH (20:02)
[2023-07-04] MEDS: PROTEIN SUPPLEMENT (PROSTAT) 30 ML LIQUID GT SCH (20:02)
[2023-07-05] MEDS: SIMETHICONE 80 MG TAB.CHEW GT SCH ×5 (00:17→23:51)
[2023-07-05] MEDS: JEVITY 1.2 1000 ML LIQUID GT PRN ×2 (00:22→18:21)
[2023-07-05] MEDS: NUTRISOURCE FIBER 4 GM PACKET GT SCH ×2 (05:14→17:10)
[2023-07-05] MEDS: ACIDOPHILUS/BULGARICUS CHEW TAB GT SCH ×2 (05:14→17:10)
[2023-07-05] MEDS: BACLOFEN 10 MG TABLET GT SCH ×3 (05:15→21:06)
[2023-07-05] MEDS: OMEPRAZOLE 20 MG CAPSULE.DR GT SCH (05:16)
[2023-07-05] MEDS: HYDROGEN PEROXIDE 3% 118 ML BOTTLE TP SCH ×2 (07:28→21:15)
[2023-07-05 08:00] VITALS: TEMP 98.2
[2023-07-05] MEDS: HARRIS FLUSH ENEMA PR SCH (08:12)
[2023-07-05] MEDS: DULOXETINE 20 MG CAPSULE.DR GT SCH (08:12)
[2023-07-05] MEDS: NEOMY/BACITRA/POLYMYXIN B OINT UD PACKET TP SCH (08:12)
[2023-07-05] MEDS: FINASTERIDE 5 MG TABLET GT SCH (08:12)
[2023-07-05] MEDS: ASCORBIC ACID 500 MG TABLET GT SCH (08:12)
[2023-07-05] MEDS: REMEDY ESSENTIAL ZINC PASTE 113 GM TP SCH ×2 (08:12→21:06)
[2023-07-05] MEDS: VITAMINS A AND D 5 GM UD PKT TP SCH (08:12)
[2023-07-05 20:06] VITALS: TEMP 98.4
[2023-07-05] MEDS: MULTIVIT, IRON, MIN NO. 8, FA TABLET GT SCH (21:06)
[2023-07-05] MEDS: PROTEIN SUPPLEMENT (PROSTAT) 30 ML LIQUID GT SCH (21:06)
[2023-07-06] MEDS: SIMETHICONE 80 MG TAB.CHEW GT SCH ×3 (05:17→17:42)
[2023-07-06] MEDS: OMEPRAZOLE 20 MG CAPSULE.DR GT SCH (05:17)
[2023-07-06] MEDS: NUTRISOURCE FIBER 4 GM PACKET GT SCH ×2 (05:17→17:42)
[2023-07-06] MEDS: BACLOFEN 10 MG TABLET GT SCH ×3 (05:17→22:20)
[2023-07-06] MEDS: ACIDOPHILUS/BULGARICUS CHEW TAB GT SCH ×2 (05:17→17:42)
[2023-07-06 07:17] VITALS: TEMP 97.7
[2023-07-06] MEDS: HYDROGEN PEROXIDE 3% 118 ML BOTTLE TP SCH ×2 (08:53→21:00)
[2023-07-06] MEDS: DULOXETINE 20 MG CAPSULE.DR GT SCH (08:59)
[2023-07-06] MEDS: NEOMY/BACITRA/POLYMYXIN B OINT UD PACKET TP SCH (08:59)
[2023-07-06] MEDS: ASCORBIC ACID 500 MG TABLET GT SCH (08:59)
[2023-07-06] MEDS: VITAMINS A AND D 5 GM UD PKT TP SCH (08:59)
[2023-07-06] MEDS: FINASTERIDE 5 MG TABLET GT SCH (08:59)
[2023-07-06] MEDS: REMEDY ESSENTIAL ZINC PASTE 113 GM TP SCH ×2 (08:59→20:48)
[2023-07-06] MEDS: JEVITY 1.2 1000 ML LIQUID GT PRN (12:05)
[2023-07-06 20:00] VITALS: TEMP 99.3
[2023-07-06] MEDS: MULTIVIT, IRON, MIN NO. 8, FA TABLET GT SCH (20:48)
[2023-07-06] MEDS: PROTEIN SUPPLEMENT (PROSTAT) 30 ML LIQUID GT SCH (20:48)
[2023-07-07] MEDS: SIMETHICONE 80 MG TAB.CHEW GT SCH ×5 (00:34→23:01)
[2023-07-07] MEDS: JEVITY 1.2 1000 ML LIQUID GT PRN ×2 (04:22→23:01)
[2023-07-07] MEDS: BACLOFEN 10 MG TABLET GT SCH ×3 (05:39→22:25)
[2023-07-07] MEDS: NUTRISOURCE FIBER 4 GM PACKET GT SCH ×2 (05:39→18:09)
[2023-07-07] MEDS: OMEPRAZOLE 20 MG CAPSULE.DR GT SCH (05:39)
[2023-07-07] MEDS: ACIDOPHILUS/BULGARICUS CHEW TAB GT SCH ×2 (05:39→18:08)
[2023-07-07 07:35] VITALS: TEMP 98.2
[2023-07-07] MEDS: REMEDY ESSENTIAL ZINC PASTE 113 GM TP SCH ×2 (08:03→20:49)
[2023-07-07] MEDS: FINASTERIDE 5 MG TABLET GT SCH (08:03)
[2023-07-07] MEDS: DULOXETINE 20 MG CAPSULE.DR GT SCH (08:03)
[2023-07-07] MEDS: HARRIS FLUSH ENEMA PR SCH (08:03)
[2023-07-07] MEDS: ASCORBIC ACID 500 MG TABLET GT SCH (08:03)
[2023-07-07] MEDS: VITAMINS A AND D 5 GM UD PKT TP SCH (08:04)
[2023-07-07] MEDS: NEOMY/BACITRA/POLYMYXIN B OINT UD PACKET TP SCH (08:04)
[2023-07-07] MEDS: HYDROGEN PEROXIDE 3% 118 ML BOTTLE TP SCH ×2 (09:01→21:17)
[2023-07-07 19:46] VITALS: TEMP 98.4
[2023-07-07] MEDS: MULTIVIT, IRON, MIN NO. 8, FA TABLET GT SCH (20:49)
[2023-07-07] MEDS: PROTEIN SUPPLEMENT (PROSTAT) 30 ML LIQUID GT SCH (20:49)
[2023-07-08] MEDS: SIMETHICONE 80 MG TAB.CHEW GT SCH ×3 (05:10→17:02)
[2023-07-08] MEDS: ACIDOPHILUS/BULGARICUS CHEW TAB GT SCH ×2 (05:10→17:02)
[2023-07-08] MEDS: BACLOFEN 10 MG TABLET GT SCH ×3 (05:10→21:22)
[2023-07-08] MEDS: NUTRISOURCE FIBER 4 GM PACKET GT SCH ×2 (05:10→17:02)
[2023-07-08] MEDS: OMEPRAZOLE 20 MG CAPSULE.DR GT SCH (05:10)
[2023-07-08] MEDS: DULOXETINE 20 MG CAPSULE.DR GT SCH (09:04)
[2023-07-08] MEDS: FINASTERIDE 5 MG TABLET GT SCH (09:04)
[2023-07-08] MEDS: NEOMY/BACITRA/POLYMYXIN B OINT UD PACKET TP SCH (09:05)
[2023-07-08] MEDS: ASCORBIC ACID 500 MG TABLET GT SCH (09:05)
[2023-07-08] MEDS: REMEDY ESSENTIAL ZINC PASTE 113 GM TP SCH ×2 (09:05→20:43)
[2023-07-08] MEDS: VITAMINS A AND D 5 GM UD PKT TP SCH (09:05)
[2023-07-08] MEDS: HYDROGEN PEROXIDE 3% 118 ML BOTTLE TP SCH ×2 (09:59→21:00)
[2023-07-08 11:47] VITALS: TEMP 98
[2023-07-08] MEDS: JEVITY 1.2 1000 ML LIQUID GT PRN (16:57)
[2023-07-08 19:54] VITALS: TEMP 97.4
[2023-07-08] MEDS: MULTIVIT, IRON, MIN NO. 8, FA TABLET GT SCH (20:43)
[2023-07-08] MEDS: PROTEIN SUPPLEMENT (PROSTAT) 30 ML LIQUID GT SCH (20:43)
[2023-07-09] MEDS: SIMETHICONE 80 MG TAB.CHEW GT SCH ×4 (05:21→18:09)
[2023-07-09] MEDS: NUTRISOURCE FIBER 4 GM PACKET GT SCH ×2 (05:21→18:09)
[2023-07-09] MEDS: ACIDOPHILUS/BULGARICUS CHEW TAB GT SCH ×2 (05:21→18:09)
[2023-07-09] MEDS: BACLOFEN 10 MG TABLET GT SCH ×3 (05:21→22:22)
[2023-07-09] MEDS: OMEPRAZOLE 20 MG CAPSULE.DR GT SCH (05:21)
[2023-07-09] MEDS: HYDROGEN PEROXIDE 3% 118 ML BOTTLE TP SCH ×2 (07:12→19:14)
[2023-07-09 07:29] VITALS: TEMP 98.5
[2023-07-09] MEDS: DULOXETINE 20 MG CAPSULE.DR GT SCH (08:55)
[2023-07-09] MEDS: ASCORBIC ACID 500 MG TABLET GT SCH (08:55)
[2023-07-09] MEDS: FINASTERIDE 5 MG TABLET GT SCH (08:55)
[2023-07-09] MEDS: REMEDY ESSENTIAL ZINC PASTE 113 GM TP SCH ×2 (08:56→20:16)
[2023-07-09] MEDS: NEOMY/BACITRA/POLYMYXIN B OINT UD PACKET TP SCH ×3 (08:56)
[2023-07-09] MEDS: VITAMINS A AND D 5 GM UD PKT TP SCH (08:56)
[2023-07-09] MEDS: JEVITY 1.2 1000 ML LIQUID GT PRN (11:58)
[2023-07-09 20:08] VITALS: TEMP 98.7
[2023-07-09] MEDS: PROTEIN SUPPLEMENT (PROSTAT) 30 ML LIQUID GT SCH (20:14)
[2023-07-09] MEDS: MULTIVIT, IRON, MIN NO. 8, FA TABLET GT SCH (20:15)
[2023-07-09] MEDS: HARRIS FLUSH ENEMA PR PRN (23:00)
[2023-07-10] MEDS: BACLOFEN 10 MG TABLET GT SCH ×3 (06:17→22:13)
[2023-07-10] MEDS: OMEPRAZOLE 20 MG CAPSULE.DR GT SCH (06:17)
[2023-07-10] MEDS: NUTRISOURCE FIBER 4 GM PACKET GT SCH ×2 (06:17→17:11)
[2023-07-10] MEDS: SIMETHICONE 80 MG TAB.CHEW GT SCH ×5 (06:17→23:46)
[2023-07-10] MEDS: ACIDOPHILUS/BULGARICUS CHEW TAB GT SCH ×2 (06:17→17:11)
[2023-07-10] MEDS: JEVITY 1.2 1000 ML LIQUID GT PRN (06:19)
[2023-07-10 07:28] VITALS: TEMP 98.7
[2023-07-10] MEDS: ASCORBIC ACID 500 MG TABLET GT SCH (08:05)
[2023-07-10] MEDS: DULOXETINE 20 MG CAPSULE.DR GT SCH (08:05)
[2023-07-10] MEDS: FINASTERIDE 5 MG TABLET GT SCH (08:05)
[2023-07-10] MEDS: REMEDY ESSENTIAL ZINC PASTE 113 GM TP SCH ×2 (08:06→20:25)
[2023-07-10] MEDS: HARRIS FLUSH ENEMA PR SCH (08:06)
[2023-07-10] MEDS: VITAMINS A AND D 5 GM UD PKT TP SCH (08:06)
[2023-07-10] MEDS: NEOMY/BACITRA/POLYMYXIN B OINT UD PACKET TP SCH ×3 (08:06)
[2023-07-10] MEDS: HYDROGEN PEROXIDE 3% 118 ML BOTTLE TP SCH ×2 (09:44→20:50)
[2023-07-10 20:02] VITALS: TEMP 99.3
[2023-07-10] MEDS: PROTEIN SUPPLEMENT (PROSTAT) 30 ML LIQUID GT SCH (20:24)
[2023-07-10] MEDS: MULTIVIT, IRON, MIN NO. 8, FA TABLET GT SCH (20:24)
[2023-07-11] MEDS: JEVITY 1.2 1000 ML LIQUID GT PRN ×2 (01:18→18:41)
[2023-07-11] MEDS: BACLOFEN 10 MG TABLET GT SCH ×3 (05:40→22:36)
[2023-07-11] MEDS: NUTRISOURCE FIBER 4 GM PACKET GT SCH ×2 (05:40→17:41)
[2023-07-11] MEDS: SIMETHICONE 80 MG TAB.CHEW GT SCH ×3 (05:40→17:41)
[2023-07-11] MEDS: ACIDOPHILUS/BULGARICUS CHEW TAB GT SCH ×2 (05:40→17:41)
[2023-07-11] MEDS: OMEPRAZOLE 20 MG CAPSULE.DR GT SCH (05:40)
[2023-07-11 07:27] VITALS: TEMP 98.9
[2023-07-11] MEDS: HYDROGEN PEROXIDE 3% 118 ML BOTTLE TP SCH ×2 (08:37→21:01)
[2023-07-11] MEDS: NEOMY/BACITRA/POLYMYXIN B OINT UD PACKET TP SCH ×3 (08:37→08:38)
[2023-07-11] MEDS: ASCORBIC ACID 500 MG TABLET GT SCH (08:37)
[2023-07-11] MEDS: REMEDY ESSENTIAL ZINC PASTE 113 GM TP SCH ×2 (08:37→20:14)
[2023-07-11] MEDS: FINASTERIDE 5 MG TABLET GT SCH (08:37)
[2023-07-11] MEDS: DULOXETINE 20 MG CAPSULE.DR GT SCH (08:37)
[2023-07-11] MEDS: VITAMINS A AND D 5 GM UD PKT TP SCH (08:38)
[2023-07-11 19:46] VITALS: TEMP 99.2
[2023-07-11] MEDS: PROTEIN SUPPLEMENT (PROSTAT) 30 ML LIQUID GT SCH (20:12)
[2023-07-11] MEDS: MULTIVIT, IRON, MIN NO. 8, FA TABLET GT SCH (20:13)
[2023-07-12] MEDS: ACIDOPHILUS/BULGARICUS CHEW TAB GT SCH ×2 (05:41→17:18)
[2023-07-12] MEDS: SIMETHICONE 80 MG TAB.CHEW GT SCH ×5 (05:42→23:41)
[2023-07-12] MEDS: NUTRISOURCE FIBER 4 GM PACKET GT SCH ×2 (05:42→17:31)
[2023-07-12] MEDS: OMEPRAZOLE 20 MG CAPSULE.DR GT SCH (05:42)
[2023-07-12] MEDS: BACLOFEN 10 MG TABLET GT SCH ×3 (05:42→22:04)
[2023-07-12 08:04] VITALS: TEMP 98.4
[2023-07-12] MEDS: HYDROGEN PEROXIDE 3% 118 ML BOTTLE TP SCH ×2 (08:50→21:45)
[2023-07-12] MEDS: REMEDY ESSENTIAL ZINC PASTE 113 GM TP SCH ×2 (09:28→21:00)
[2023-07-12] MEDS: VITAMINS A AND D 5 GM UD PKT TP SCH (09:28)
[2023-07-12] MEDS: HARRIS FLUSH ENEMA PR SCH (09:28)
[2023-07-12] MEDS: ASCORBIC ACID 500 MG TABLET GT SCH (09:28)
[2023-07-12] MEDS: DULOXETINE 20 MG CAPSULE.DR GT SCH (09:28)
[2023-07-12] MEDS: NEOMY/BACITRA/POLYMYXIN B OINT UD PACKET TP SCH ×2 (09:28)
[2023-07-12] MEDS: FINASTERIDE 5 MG TABLET GT SCH (09:28)
[2023-07-12 20:00] VITALS: TEMP 98.2
[2023-07-12] MEDS: MULTIVIT, IRON, MIN NO. 8, FA TABLET GT SCH (21:00)
[2023-07-12] MEDS: PROTEIN SUPPLEMENT (PROSTAT) 30 ML LIQUID GT SCH (21:00)
[2023-07-13] MEDS: JEVITY 1.2 1000 ML LIQUID GT PRN ×2 (03:55→17:48)
[2023-07-13] MEDS: ACIDOPHILUS/BULGARICUS CHEW TAB GT SCH ×2 (05:58→17:47)
[2023-07-13] MEDS: SIMETHICONE 80 MG TAB.CHEW GT SCH ×3 (05:58→17:47)
[2023-07-13] MEDS: OMEPRAZOLE 20 MG CAPSULE.DR GT SCH (05:58)
[2023-07-13] MEDS: NUTRISOURCE FIBER 4 GM PACKET GT SCH ×2 (05:58→17:47)
[2023-07-13] MEDS: BACLOFEN 10 MG TABLET GT SCH ×3 (05:58→21:55)
[2023-07-13 07:49] VITALS: TEMP 98.4
[2023-07-13 08:30] VITALS: O2SAT 99
[2023-07-13] MEDS: DULOXETINE 20 MG CAPSULE.DR GT SCH (08:38)
[2023-07-13] MEDS: ASCORBIC ACID 500 MG TABLET GT SCH (08:38)
[2023-07-13] MEDS: REMEDY ESSENTIAL ZINC PASTE 113 GM TP SCH ×2 (08:38→21:54)
[2023-07-13] MEDS: VITAMINS A AND D 5 GM UD PKT TP SCH (08:38)
[2023-07-13] MEDS: NEOMY/BACITRA/POLYMYXIN B OINT UD PACKET TP SCH ×2 (08:38)
[2023-07-13] MEDS: FINASTERIDE 5 MG TABLET GT SCH (08:38)
[2023-07-13] MEDS: HYDROGEN PEROXIDE 3% 118 ML BOTTLE TP SCH ×2 (08:56→21:42)
[2023-07-13 20:00] VITALS: TEMP 98.6
[2023-07-13] MEDS: PROTEIN SUPPLEMENT (PROSTAT) 30 ML LIQUID GT SCH (21:54)
[2023-07-13] MEDS: MULTIVIT, IRON, MIN NO. 8, FA TABLET GT SCH (21:54)
[2023-07-14] MEDS: BACLOFEN 10 MG TABLET GT SCH ×3 (05:20→21:13)
[2023-07-14] MEDS: ACIDOPHILUS/BULGARICUS CHEW TAB GT SCH ×2 (05:20→17:07)
[2023-07-14] MEDS: SIMETHICONE 80 MG TAB.CHEW GT SCH ×4 (05:21→17:07)
[2023-07-14] MEDS: NUTRISOURCE FIBER 4 GM PACKET GT SCH ×2 (05:21→17:07)
[2023-07-14] MEDS: OMEPRAZOLE 20 MG CAPSULE.DR GT SCH (05:21)
[2023-07-14] MEDS: HYDROGEN PEROXIDE 3% 118 ML BOTTLE TP SCH ×2 (07:31→21:36)
[2023-07-14 08:00] VITALS: TEMP 98.8
[2023-07-14] MEDS: DULOXETINE 20 MG CAPSULE.DR GT SCH (08:18)
[2023-07-14] MEDS: FINASTERIDE 5 MG TABLET GT SCH (08:18)
[2023-07-14] MEDS: REMEDY ESSENTIAL ZINC PASTE 113 GM TP SCH ×2 (08:19→20:52)
[2023-07-14] MEDS: ASCORBIC ACID 500 MG TABLET GT SCH (08:19)
[2023-07-14] MEDS: NEOMY/BACITRA/POLYMYXIN B OINT UD PACKET TP SCH ×2 (08:19)
[2023-07-14] MEDS: VITAMINS A AND D 5 GM UD PKT TP SCH (08:19)
[2023-07-14] MEDS: HARRIS FLUSH ENEMA PR SCH (08:19)
[2023-07-14] MEDS: JEVITY 1.2 1000 ML LIQUID GT PRN (09:50)
[2023-07-14 20:00] VITALS: TEMP 98.2
[2023-07-14] MEDS: MULTIVIT, IRON, MIN NO. 8, FA TABLET GT SCH (20:51)
[2023-07-14] MEDS: PROTEIN SUPPLEMENT (PROSTAT) 30 ML LIQUID GT SCH (20:51)
[2023-07-15] MEDS: SIMETHICONE 80 MG TAB.CHEW GT SCH ×4 (00:46→17:10)
[2023-07-15] MEDS: BACLOFEN 10 MG TABLET GT SCH ×3 (06:15→22:26)
[2023-07-15] MEDS: ACIDOPHILUS/BULGARICUS CHEW TAB GT SCH ×2 (06:15→17:10)
[2023-07-15] MEDS: OMEPRAZOLE 20 MG CAPSULE.DR GT SCH (06:16)
[2023-07-15] MEDS: NUTRISOURCE FIBER 4 GM PACKET GT SCH ×2 (06:16→17:10)
[2023-07-15 07:35] VITALS: TEMP 98.8
[2023-07-15] MEDS: REMEDY ESSENTIAL ZINC PASTE 113 GM TP SCH ×2 (08:15→20:21)
[2023-07-15] MEDS: NEOMY/BACITRA/POLYMYXIN B OINT UD PACKET TP SCH ×2 (08:15)
[2023-07-15] MEDS: VITAMINS A AND D 5 GM UD PKT TP SCH (08:15)
[2023-07-15] MEDS: ASCORBIC ACID 500 MG TABLET GT SCH (08:15)
[2023-07-15] MEDS: FINASTERIDE 5 MG TABLET GT SCH (08:15)
[2023-07-15] MEDS: DULOXETINE 20 MG CAPSULE.DR GT SCH (08:15)
[2023-07-15] MEDS: HYDROGEN PEROXIDE 3% 118 ML BOTTLE TP SCH ×2 (09:00→20:35)
[2023-07-15 20:20] VITALS: TEMP 99.6
[2023-07-15] MEDS: MULTIVIT, IRON, MIN NO. 8, FA TABLET GT SCH (20:21)
[2023-07-15] MEDS: PROTEIN SUPPLEMENT (PROSTAT) 30 ML LIQUID GT SCH (20:21)
[2023-07-16] MEDS: JEVITY 1.2 1000 ML LIQUID GT PRN (00:50)
[2023-07-16] MEDS: SIMETHICONE 80 MG TAB.CHEW GT SCH ×5 (00:50→22:35)
[2023-07-16] MEDS: ACIDOPHILUS/BULGARICUS CHEW TAB GT SCH ×2 (05:27→17:50)
[2023-07-16] MEDS: BACLOFEN 10 MG TABLET GT SCH ×3 (05:27→22:35)
[2023-07-16] MEDS: OMEPRAZOLE 20 MG CAPSULE.DR GT SCH (05:27)
[2023-07-16] MEDS: NUTRISOURCE FIBER 4 GM PACKET GT SCH ×2 (05:27→17:50)
[2023-07-16 07:27] VITALS: TEMP 98.7
[2023-07-16 08:19] LABS: BASOPHILS # (AUTO) 0.2 K/UL (0.0-0.2); BASOPHILS % (AUTO) 2.8 % (0.0-2.0); EOSINOPHILS # (AUTO) 0.3 K/uL (0.0-0.7); EOSINOPHILS % (AUTO) 3.9 % (0.0-7.0); HEMATOCRIT 39.2 % (36.7-47.1); HEMOGLOBIN 12.9 g/dL (12.5-16.3); LYMPHOCYTES % (AUTO) 23.4 % (20.5-51.5); MEAN CORPUSCULAR HEMOGLOBIN 28.2 uug (23.8-33.4); MEAN CORPUSCULAR HGB CONC 33 g/dL (32.5-36.3); MEAN CORPUSCULAR VOLUME 85.6 fL (73.0-96.2); MONOCYTES # (AUTO) 0.6 K/uL (0.1-1.30); MONOCYTES % (AUTO) 7.1 % (0.0-11.0); NEUTROPHILS # (AUTO) 5.3 K/uL (1.8-8.9); NEUTROPHILS % (AUTO) 62.8 % (38.5-71.5); PLATELET COUNT (AUTO) 254 K/uL (152-348); RED BLOOD CELL COUNT(AUTO) 4.58 MIL/uL (4.06-5.63); RED CELL DISTRIBUTION WIDTH 15.2 % (12.1-16.2); WHITE BLOOD COUNT (AUTO) 8.4 K/uL (3.6-10.2)
[2023-07-16 08:49] LABS: DIFFERENTIAL COMMENT 1
[2023-07-16 08:51] LABS: CALCIUM 9.6 mg/dL (8.5-10.1); CARBON DIOXIDE 26 mmol/L (21-32); CHLORIDE 101 mmol/L (98-107); CREATININE 0.7 mg/dL (0.6-1.3); GLUCOSE 102 mg/dL (74-106); MAGNESIUM 2.2 mg/dL (1.8-2.4); PHOSPHOROUS 3.4 mg/dL (2.5-4.9); POTASSIUM 4.1 mmol/L (3.5-5.1); SODIUM SERUM 135 mmol/L (136-145); UREA NITROGEN, BLOOD 32 mg/dL (7-18)
[2023-07-16] MEDS: DULOXETINE 20 MG CAPSULE.DR GT SCH (09:00)
[2023-07-16] MEDS: NEOMY/BACITRA/POLYMYXIN B OINT UD PACKET TP SCH ×2 (09:00)
[2023-07-16] MEDS: FINASTERIDE 5 MG TABLET GT SCH (09:00)
[2023-07-16] MEDS: ASCORBIC ACID 500 MG TABLET GT SCH (09:00)
[2023-07-16] MEDS: VITAMINS A AND D 5 GM UD PKT TP SCH (09:00)
[2023-07-16] MEDS: REMEDY ESSENTIAL ZINC PASTE 113 GM TP SCH ×2 (09:00→21:00)
[2023-07-16] MEDS: HYDROGEN PEROXIDE 3% 118 ML BOTTLE TP SCH ×2 (09:27→21:00)
[2023-07-16 20:13] VITALS: TEMP 99.2
[2023-07-16] MEDS: MULTIVIT, IRON, MIN NO. 8, FA TABLET GT SCH (21:00)
[2023-07-16] MEDS: PROTEIN SUPPLEMENT (PROSTAT) 30 ML LIQUID GT SCH (21:00)
[2023-07-17] MEDS: ACIDOPHILUS/BULGARICUS CHEW TAB GT SCH ×2 (05:53→18:08)
[2023-07-17] MEDS: NUTRISOURCE FIBER 4 GM PACKET GT SCH ×2 (05:53→18:08)
[2023-07-17] MEDS: OMEPRAZOLE 20 MG CAPSULE.DR GT SCH (05:53)
[2023-07-17] MEDS: SIMETHICONE 80 MG TAB.CHEW GT SCH ×3 (05:53→18:08)
[2023-07-17] MEDS: BACLOFEN 10 MG TABLET GT SCH ×3 (05:53→22:29)
[2023-07-17] MEDS: HYDROGEN PEROXIDE 3% 118 ML BOTTLE TP SCH ×2 (07:24→21:12)
[2023-07-17 07:27] VITALS: TEMP 98.3
[2023-07-17] MEDS: DULOXETINE 20 MG CAPSULE.DR GT SCH (08:47)
[2023-07-17] MEDS: FINASTERIDE 5 MG TABLET GT SCH (08:48)
[2023-07-17] MEDS: ASCORBIC ACID 500 MG TABLET GT SCH (08:48)
[2023-07-17] MEDS: REMEDY ESSENTIAL ZINC PASTE 113 GM TP SCH ×2 (08:48→20:36)
[2023-07-17] MEDS: HARRIS FLUSH ENEMA PR SCH (08:48)
[2023-07-17] MEDS: NEOMY/BACITRA/POLYMYXIN B OINT UD PACKET TP SCH ×2 (09:00)
[2023-07-17] MEDS: VITAMINS A AND D 5 GM UD PKT TP SCH (09:00)
[2023-07-17] MEDS: JEVITY 1.2 1000 ML LIQUID GT PRN ×2 (14:37→18:08)
[2023-07-17] MEDS: PROTEIN SUPPLEMENT (PROSTAT) 30 ML LIQUID GT SCH (20:35)
[2023-07-17] MEDS: MULTIVIT, IRON, MIN NO. 8, FA TABLET GT SCH (20:35)
[2023-07-17 20:39] VITALS: TEMP 98.3
[2023-07-18] MEDS: SIMETHICONE 80 MG TAB.CHEW GT SCH ×5 (00:01→23:50)
[2023-07-18] MEDS: NUTRISOURCE FIBER 4 GM PACKET GT SCH ×2 (05:35→18:10)
[2023-07-18] MEDS: OMEPRAZOLE 20 MG CAPSULE.DR GT SCH (05:35)
[2023-07-18] MEDS: ACIDOPHILUS/BULGARICUS CHEW TAB GT SCH ×2 (05:35→18:10)
[2023-07-18] MEDS: BACLOFEN 10 MG TABLET GT SCH ×3 (05:35→22:07)
[2023-07-18 08:00] VITALS: TEMP 98
[2023-07-18] MEDS: FINASTERIDE 5 MG TABLET GT SCH (08:43)
[2023-07-18] MEDS: DULOXETINE 20 MG CAPSULE.DR GT SCH (08:43)
[2023-07-18] MEDS: NEOMY/BACITRA/POLYMYXIN B OINT UD PACKET TP SCH ×2 (08:44)
[2023-07-18] MEDS: ASCORBIC ACID 500 MG TABLET GT SCH (08:44)
[2023-07-18] MEDS: REMEDY ESSENTIAL ZINC PASTE 113 GM TP SCH ×2 (08:44→20:43)
[2023-07-18] MEDS: VITAMINS A AND D 5 GM UD PKT TP SCH (08:45)
[2023-07-18] MEDS: HYDROGEN PEROXIDE 3% 118 ML BOTTLE TP SCH ×2 (08:51→20:50)
[2023-07-18 20:21] VITALS: TEMP 98.9
[2023-07-18] MEDS: MULTIVIT, IRON, MIN NO. 8, FA TABLET GT SCH (20:43)
[2023-07-18] MEDS: PROTEIN SUPPLEMENT (PROSTAT) 30 ML LIQUID GT SCH (20:43)
[2023-07-19] MEDS: JEVITY 1.2 1000 ML LIQUID GT PRN (02:00)
[2023-07-19] MEDS: OMEPRAZOLE 20 MG CAPSULE.DR GT SCH (05:42)
[2023-07-19] MEDS: BACLOFEN 10 MG TABLET GT SCH ×3 (05:42→22:23)
[2023-07-19] MEDS: SIMETHICONE 80 MG TAB.CHEW GT SCH ×3 (05:42→18:39)
[2023-07-19] MEDS: NUTRISOURCE FIBER 4 GM PACKET GT SCH ×2 (05:42→18:39)
[2023-07-19] MEDS: ACIDOPHILUS/BULGARICUS CHEW TAB GT SCH ×2 (05:42→18:39)
[2023-07-19] MEDS: HYDROGEN PEROXIDE 3% 118 ML BOTTLE TP SCH ×2 (07:17→22:01)
[2023-07-19 08:00] VITALS: TEMP 98
[2023-07-19] MEDS: FINASTERIDE 5 MG TABLET GT SCH (08:37)
[2023-07-19] MEDS: ASCORBIC ACID 500 MG TABLET GT SCH (08:37)
[2023-07-19] MEDS: DULOXETINE 20 MG CAPSULE.DR GT SCH (08:37)
[2023-07-19] MEDS: NEOMY/BACITRA/POLYMYXIN B OINT UD PACKET TP SCH ×2 (08:38)
[2023-07-19] MEDS: HARRIS FLUSH ENEMA PR SCH (08:38)
[2023-07-19] MEDS: REMEDY ESSENTIAL ZINC PASTE 113 GM TP SCH ×2 (08:38→21:00)
[2023-07-19] MEDS: VITAMINS A AND D 5 GM UD PKT TP SCH (08:38)
[2023-07-19] MEDS: MULTIVIT, IRON, MIN NO. 8, FA TABLET GT SCH (21:00)
[2023-07-19] MEDS: PROTEIN SUPPLEMENT (PROSTAT) 30 ML LIQUID GT SCH (21:00)
[2023-07-19 22:15] VITALS: TEMP 98.5
[2023-07-20] MEDS: SIMETHICONE 80 MG TAB.CHEW GT SCH ×4 (00:18→18:05)
[2023-07-20] MEDS: JEVITY 1.2 1000 ML LIQUID GT PRN ×2 (00:18→18:24)
[2023-07-20] MEDS: NUTRISOURCE FIBER 4 GM PACKET GT SCH ×2 (05:18→18:05)
[2023-07-20] MEDS: OMEPRAZOLE 20 MG CAPSULE.DR GT SCH (05:18)
[2023-07-20] MEDS: BACLOFEN 10 MG TABLET GT SCH ×3 (05:18→22:11)
[2023-07-20] MEDS: ACIDOPHILUS/BULGARICUS CHEW TAB GT SCH ×2 (05:18→18:05)
[2023-07-20] MEDS: HYDROGEN PEROXIDE 3% 118 ML BOTTLE TP SCH ×2 (07:57→19:10)
[2023-07-20 08:32] VITALS: TEMP 98.6
[2023-07-20] MEDS: FINASTERIDE 5 MG TABLET GT SCH (09:39)
[2023-07-20] MEDS: DULOXETINE 20 MG CAPSULE.DR GT SCH (09:39)
[2023-07-20] MEDS: VITAMINS A AND D 5 GM UD PKT TP SCH (09:40)
[2023-07-20] MEDS: REMEDY ESSENTIAL ZINC PASTE 113 GM TP SCH ×2 (09:40→20:22)
[2023-07-20] MEDS: NEOMY/BACITRA/POLYMYXIN B OINT UD PACKET TP SCH ×4 (09:40→20:22)
[2023-07-20] MEDS: ASCORBIC ACID 500 MG TABLET GT SCH (09:40)
[2023-07-20] MEDS: MULTIVIT, IRON, MIN NO. 8, FA TABLET GT SCH (20:24)
[2023-07-20] MEDS: PROTEIN SUPPLEMENT (PROSTAT) 30 ML LIQUID GT SCH (20:24)
[2023-07-20 21:28] VITALS: TEMP 98.2
[2023-07-21] MEDS: SIMETHICONE 80 MG TAB.CHEW GT SCH ×4 (00:56→18:05)
[2023-07-21] MEDS: OMEPRAZOLE 20 MG CAPSULE.DR GT SCH (06:00)
[2023-07-21] MEDS: NUTRISOURCE FIBER 4 GM PACKET GT SCH ×2 (06:00→18:05)
[2023-07-21] MEDS: ACIDOPHILUS/BULGARICUS CHEW TAB GT SCH ×2 (06:00→18:05)
[2023-07-21] MEDS: BACLOFEN 10 MG TABLET GT SCH ×3 (06:00→22:47)
[2023-07-21 07:48] VITALS: TEMP 98.4
[2023-07-21] MEDS: HYDROGEN PEROXIDE 3% 118 ML BOTTLE TP SCH ×2 (09:00→21:00)
[2023-07-21] MEDS: DULOXETINE 20 MG CAPSULE.DR GT SCH (09:37)
[2023-07-21] MEDS: HARRIS FLUSH ENEMA PR SCH (09:38)
[2023-07-21] MEDS: VITAMINS A AND D 5 GM UD PKT TP SCH (09:38)
[2023-07-21] MEDS: REMEDY ESSENTIAL ZINC PASTE 113 GM TP SCH ×2 (09:38→20:10)
[2023-07-21] MEDS: ASCORBIC ACID 500 MG TABLET GT SCH (09:38)
[2023-07-21] MEDS: NEOMY/BACITRA/POLYMYXIN B OINT UD PACKET TP SCH ×4 (09:38→20:09)
[2023-07-21] MEDS: FINASTERIDE 5 MG TABLET GT SCH (09:38)
[2023-07-21] MEDS: JEVITY 1.2 1000 ML LIQUID GT PRN (13:00)
[2023-07-21 20:00] VITALS: TEMP 98.3
[2023-07-21] MEDS: PROTEIN SUPPLEMENT (PROSTAT) 30 ML LIQUID GT SCH (20:09)
[2023-07-21] MEDS: MULTIVIT, IRON, MIN NO. 8, FA TABLET GT SCH (20:09)
[2023-07-22] MEDS: SIMETHICONE 80 MG TAB.CHEW GT SCH ×5 (00:51→23:04)
[2023-07-22] MEDS: OMEPRAZOLE 20 MG CAPSULE.DR GT SCH (05:27)
[2023-07-22] MEDS: BACLOFEN 10 MG TABLET GT SCH ×3 (05:27→21:24)
[2023-07-22] MEDS: NUTRISOURCE FIBER 4 GM PACKET GT SCH ×2 (05:27→17:07)
[2023-07-22] MEDS: ACIDOPHILUS/BULGARICUS CHEW TAB GT SCH ×2 (05:27→17:07)
[2023-07-22 07:58] VITALS: TEMP 97.9
[2023-07-22] MEDS: FINASTERIDE 5 MG TABLET GT SCH (08:36)
[2023-07-22] MEDS: ASCORBIC ACID 500 MG TABLET GT SCH (08:36)
[2023-07-22] MEDS: DULOXETINE 20 MG CAPSULE.DR GT SCH (08:36)
[2023-07-22] MEDS: NEOMY/BACITRA/POLYMYXIN B OINT UD PACKET TP SCH ×4 (08:37→20:18)
[2023-07-22] MEDS: REMEDY ESSENTIAL ZINC PASTE 113 GM TP SCH ×2 (08:37→20:18)
[2023-07-22] MEDS: VITAMINS A AND D 5 GM UD PKT TP SCH (08:37)
[2023-07-22] MEDS: HYDROGEN PEROXIDE 3% 118 ML BOTTLE TP SCH ×2 (09:33→20:20)
[2023-07-22 20:15] VITALS: TEMP 98
[2023-07-22] MEDS: JEVITY 1.2 1000 ML LIQUID GT PRN (20:18)
[2023-07-22] MEDS: MULTIVIT, IRON, MIN NO. 8, FA TABLET GT SCH (20:18)
[2023-07-22] MEDS: PROTEIN SUPPLEMENT (PROSTAT) 30 ML LIQUID GT SCH (20:18)
[2023-07-23] MEDS: OMEPRAZOLE 20 MG CAPSULE.DR GT SCH (05:34)
[2023-07-23] MEDS: SIMETHICONE 80 MG TAB.CHEW GT SCH ×4 (05:34→23:10)
[2023-07-23] MEDS: BACLOFEN 10 MG TABLET GT SCH ×3 (05:34→22:21)
[2023-07-23] MEDS: NUTRISOURCE FIBER 4 GM PACKET GT SCH ×2 (05:34→17:16)
[2023-07-23] MEDS: ACIDOPHILUS/BULGARICUS CHEW TAB GT SCH ×2 (05:34→17:16)
[2023-07-23 07:29] VITALS: TEMP 98.8
[2023-07-23 07:31] VITALS: TEMP 98.8
[2023-07-23] MEDS: HYDROGEN PEROXIDE 3% 118 ML BOTTLE TP SCH ×2 (09:08→19:15)
[2023-07-23] MEDS: FINASTERIDE 5 MG TABLET GT SCH (09:40)
[2023-07-23] MEDS: DULOXETINE 20 MG CAPSULE.DR GT SCH (09:40)
[2023-07-23] MEDS: ASCORBIC ACID 500 MG TABLET GT SCH (09:40)
[2023-07-23] MEDS: NEOMY/BACITRA/POLYMYXIN B OINT UD PACKET TP SCH ×2 (09:49→20:38)
[2023-07-23] MEDS: REMEDY ESSENTIAL ZINC PASTE 113 GM TP SCH ×2 (09:49→20:38)
[2023-07-23] MEDS: VITAMINS A AND D 5 GM UD PKT TP SCH (09:49)
[2023-07-23] MEDS: JEVITY 1.2 1000 ML LIQUID GT PRN (14:30)
[2023-07-23 19:42] VITALS: TEMP 98.7
[2023-07-23] MEDS: PROTEIN SUPPLEMENT (PROSTAT) 30 ML LIQUID GT SCH (20:38)
[2023-07-23] MEDS: MULTIVIT, IRON, MIN NO. 8, FA TABLET GT SCH (20:38)
[2023-07-24] MEDS: JEVITY 1.2 1000 ML LIQUID GT PRN (04:00)
[2023-07-24] MEDS: ACIDOPHILUS/BULGARICUS CHEW TAB GT SCH ×2 (05:15→17:29)
[2023-07-24] MEDS: SIMETHICONE 80 MG TAB.CHEW GT SCH ×3 (05:15→17:29)
[2023-07-24] MEDS: NUTRISOURCE FIBER 4 GM PACKET GT SCH ×2 (05:15→17:29)
[2023-07-24] MEDS: BACLOFEN 10 MG TABLET GT SCH ×3 (05:15→22:20)
[2023-07-24] MEDS: OMEPRAZOLE 20 MG CAPSULE.DR GT SCH (05:15)
[2023-07-24] MEDS: HYDROGEN PEROXIDE 3% 118 ML BOTTLE TP SCH ×2 (07:14→21:00)
[2023-07-24 07:48] VITALS: TEMP 98.6
[2023-07-24] MEDS: DULOXETINE 20 MG CAPSULE.DR GT SCH (08:43)
[2023-07-24] MEDS: ASCORBIC ACID 500 MG TABLET GT SCH (08:43)
[2023-07-24] MEDS: FINASTERIDE 5 MG TABLET GT SCH (08:43)
[2023-07-24] MEDS: REMEDY ESSENTIAL ZINC PASTE 113 GM TP SCH ×2 (08:44→20:51)
[2023-07-24] MEDS: NEOMY/BACITRA/POLYMYXIN B OINT UD PACKET TP SCH ×3 (08:44→20:51)
[2023-07-24] MEDS: VITAMINS A AND D 5 GM UD PKT TP SCH (08:45)
[2023-07-24] MEDS: HARRIS FLUSH ENEMA PR SCH (09:47)
[2023-07-24 19:41] VITALS: TEMP 98.8
[2023-07-24] MEDS: PROTEIN SUPPLEMENT (PROSTAT) 30 ML LIQUID GT SCH (20:50)
[2023-07-24] MEDS: MULTIVIT, IRON, MIN NO. 8, FA TABLET GT SCH (20:50)
[2023-07-25] MEDS: ACIDOPHILUS/BULGARICUS CHEW TAB GT SCH ×2 (06:09→18:04)
[2023-07-25] MEDS: SIMETHICONE 80 MG TAB.CHEW GT SCH ×4 (06:09→18:04)
[2023-07-25] MEDS: OMEPRAZOLE 20 MG CAPSULE.DR GT SCH (06:09)
[2023-07-25] MEDS: BACLOFEN 10 MG TABLET GT SCH ×3 (06:09→22:26)
[2023-07-25] MEDS: NUTRISOURCE FIBER 4 GM PACKET GT SCH ×2 (06:09→18:04)
[2023-07-25 07:19] VITALS: TEMP 98.6
[2023-07-25] MEDS: HYDROGEN PEROXIDE 3% 118 ML BOTTLE TP SCH ×2 (09:15→19:24)
[2023-07-25] MEDS: FINASTERIDE 5 MG TABLET GT SCH (09:57)
[2023-07-25] MEDS: DULOXETINE 20 MG CAPSULE.DR GT SCH (09:57)
[2023-07-25] MEDS: ASCORBIC ACID 500 MG TABLET GT SCH (09:57)
[2023-07-25] MEDS: VITAMINS A AND D 5 GM UD PKT TP SCH (09:58)
[2023-07-25] MEDS: REMEDY ESSENTIAL ZINC PASTE 113 GM TP SCH ×2 (09:58→20:14)
[2023-07-25] MEDS: NEOMY/BACITRA/POLYMYXIN B OINT UD PACKET TP SCH ×3 (09:58→20:14)
[2023-07-25] MEDS: JEVITY 1.2 1000 ML LIQUID GT PRN (15:34)
[2023-07-25 20:00] VITALS: TEMP 97.8
[2023-07-25] MEDS: MULTIVIT, IRON, MIN NO. 8, FA TABLET GT SCH (20:14)
[2023-07-25] MEDS: PROTEIN SUPPLEMENT (PROSTAT) 30 ML LIQUID GT SCH (20:14)
[2023-07-26] MEDS: SIMETHICONE 80 MG TAB.CHEW GT SCH ×5 (00:27→23:11)
[2023-07-26] MEDS: NUTRISOURCE FIBER 4 GM PACKET GT SCH ×2 (06:49→17:06)
[2023-07-26] MEDS: ACIDOPHILUS/BULGARICUS CHEW TAB GT SCH ×2 (06:49→17:06)
[2023-07-26] MEDS: BACLOFEN 10 MG TABLET GT SCH ×3 (06:49→21:56)
[2023-07-26] MEDS: OMEPRAZOLE 20 MG CAPSULE.DR GT SCH (06:49)
[2023-07-26] MEDS: JEVITY 1.2 1000 ML LIQUID GT PRN (06:50)
[2023-07-26 07:58] VITALS: TEMP 98
[2023-07-26] MEDS: FINASTERIDE 5 MG TABLET GT SCH (09:00)
[2023-07-26] MEDS: DULOXETINE 20 MG CAPSULE.DR GT SCH (09:00)
[2023-07-26] MEDS: ASCORBIC ACID 500 MG TABLET GT SCH (09:00)
[2023-07-26] MEDS: HARRIS FLUSH ENEMA PR SCH (09:00)
[2023-07-26] MEDS: NEOMY/BACITRA/POLYMYXIN B OINT UD PACKET TP SCH ×3 (09:01→20:47)
[2023-07-26] MEDS: VITAMINS A AND D 5 GM UD PKT TP SCH (09:01)
[2023-07-26] MEDS: REMEDY ESSENTIAL ZINC PASTE 113 GM TP SCH ×2 (09:01→20:47)
[2023-07-26] MEDS: HYDROGEN PEROXIDE 3% 118 ML BOTTLE TP SCH ×2 (09:11→21:36)
[2023-07-26 20:00] VITALS: TEMP 98.4
[2023-07-26] MEDS: MULTIVIT, IRON, MIN NO. 8, FA TABLET GT SCH (20:47)
[2023-07-26] MEDS: PROTEIN SUPPLEMENT (PROSTAT) 30 ML LIQUID GT SCH (20:47)
[2023-07-27] MEDS: NUTRISOURCE FIBER 4 GM PACKET GT SCH ×2 (05:37→17:10)
[2023-07-27] MEDS: BACLOFEN 10 MG TABLET GT SCH ×3 (05:37→22:02)
[2023-07-27] MEDS: OMEPRAZOLE 20 MG CAPSULE.DR GT SCH (05:37)
[2023-07-27] MEDS: ACIDOPHILUS/BULGARICUS CHEW TAB GT SCH ×2 (05:37→17:10)
[2023-07-27] MEDS: SIMETHICONE 80 MG TAB.CHEW GT SCH ×4 (05:37→23:27)
[2023-07-27 07:43] VITALS: TEMP 99.1
[2023-07-27] MEDS: ASCORBIC ACID 500 MG TABLET GT SCH (08:44)
[2023-07-27] MEDS: FINASTERIDE 5 MG TABLET GT SCH (08:44)
[2023-07-27] MEDS: VITAMINS A AND D 5 GM UD PKT TP SCH (08:44)
[2023-07-27] MEDS: REMEDY ESSENTIAL ZINC PASTE 113 GM TP SCH ×2 (08:44→20:57)
[2023-07-27] MEDS: DULOXETINE 20 MG CAPSULE.DR GT SCH (08:44)
[2023-07-27] MEDS: NEOMY/BACITRA/POLYMYXIN B OINT UD PACKET TP SCH (08:44)
[2023-07-27] MEDS: HYDROGEN PEROXIDE 3% 118 ML BOTTLE TP SCH ×2 (09:00→21:00)
[2023-07-27 20:00] VITALS: TEMP 98.4
[2023-07-27] MEDS: MULTIVIT, IRON, MIN NO. 8, FA TABLET GT SCH (20:57)
[2023-07-27] MEDS: PROTEIN SUPPLEMENT (PROSTAT) 30 ML LIQUID GT SCH (20:57)
[2023-07-28] MEDS: SIMETHICONE 80 MG TAB.CHEW GT SCH ×4 (05:13→23:15)
[2023-07-28] MEDS: ACIDOPHILUS/BULGARICUS CHEW TAB GT SCH ×2 (05:13→18:10)
[2023-07-28] MEDS: BACLOFEN 10 MG TABLET GT SCH ×3 (05:13→21:56)
[2023-07-28] MEDS: NUTRISOURCE FIBER 4 GM PACKET GT SCH ×2 (05:13→18:10)
[2023-07-28] MEDS: OMEPRAZOLE 20 MG CAPSULE.DR GT SCH (05:13)
[2023-07-28] MEDS: JEVITY 1.2 1000 ML LIQUID GT PRN ×2 (05:14→23:10)
[2023-07-28] MEDS: POLYVINYL ALCOHOL OPHT DROPS 15 ML BOTTLE EACHEYE PRN (05:14)
[2023-07-28] MEDS: HYDROGEN PEROXIDE 3% 118 ML BOTTLE TP SCH ×3 (07:56→19:19)
[2023-07-28 08:00] VITALS: TEMP 98.8
[2023-07-28] MEDS: ACETAMINOPHEN 650 MG/20 ML UDC- SA PATIENTS-PAIN ONLY GT PRN (09:02)
[2023-07-28] MEDS: DULOXETINE 20 MG CAPSULE.DR GT SCH (09:02)
[2023-07-28] MEDS: NEOMY/BACITRA/POLYMYXIN B OINT UD PACKET TP SCH (09:02)
[2023-07-28] MEDS: VITAMINS A AND D 5 GM UD PKT TP SCH (09:02)
[2023-07-28] MEDS: HARRIS FLUSH ENEMA PR SCH (09:02)
[2023-07-28] MEDS: ASCORBIC ACID 500 MG TABLET GT SCH (09:02)
[2023-07-28] MEDS: REMEDY ESSENTIAL ZINC PASTE 113 GM TP SCH ×2 (09:02→20:52)
[2023-07-28] MEDS: FINASTERIDE 5 MG TABLET GT SCH (09:02)
[2023-07-28 20:00] VITALS: TEMP 98.9
[2023-07-28] MEDS: MULTIVIT, IRON, MIN NO. 8, FA TABLET GT SCH (20:52)
[2023-07-28] MEDS: PROTEIN SUPPLEMENT (PROSTAT) 30 ML LIQUID GT SCH (20:52)
[2023-07-29] MEDS: SIMETHICONE 80 MG TAB.CHEW GT SCH ×3 (05:31→17:30)
[2023-07-29] MEDS: BACLOFEN 10 MG TABLET GT SCH ×3 (05:31→21:30)
[2023-07-29] MEDS: NUTRISOURCE FIBER 4 GM PACKET GT SCH ×2 (05:31→17:30)
[2023-07-29] MEDS: OMEPRAZOLE 20 MG CAPSULE.DR GT SCH (05:31)
[2023-07-29] MEDS: ACIDOPHILUS/BULGARICUS CHEW TAB GT SCH ×2 (05:31→17:30)
[2023-07-29 07:33] VITALS: TEMP 99.6
[2023-07-29] MEDS: ASCORBIC ACID 500 MG TABLET GT SCH (08:20)
[2023-07-29] MEDS: FINASTERIDE 5 MG TABLET GT SCH (08:20)
[2023-07-29] MEDS: NEOMY/BACITRA/POLYMYXIN B OINT UD PACKET TP SCH (08:20)
[2023-07-29] MEDS: REMEDY ESSENTIAL ZINC PASTE 113 GM TP SCH ×2 (08:20→20:30)
[2023-07-29] MEDS: DULOXETINE 20 MG CAPSULE.DR GT SCH (08:20)
[2023-07-29] MEDS: VITAMINS A AND D 5 GM UD PKT TP SCH (08:21)
[2023-07-29] MEDS: JEVITY 1.2 1000 ML LIQUID GT PRN (17:32)
[2023-07-29 19:48] VITALS: TEMP 97.6
[2023-07-29] MEDS: MULTIVIT, IRON, MIN NO. 8, FA TABLET GT SCH (20:30)
[2023-07-29] MEDS: PROTEIN SUPPLEMENT (PROSTAT) 30 ML LIQUID GT SCH (20:30)
[2023-07-29] MEDS: HYDROGEN PEROXIDE 3% 118 ML BOTTLE TP SCH (20:31)
[2023-07-30] MEDS: SIMETHICONE 80 MG TAB.CHEW GT SCH ×4 (00:50→18:03)
[2023-07-30] MEDS: ACIDOPHILUS/BULGARICUS CHEW TAB GT SCH ×2 (05:37→18:03)
[2023-07-30] MEDS: NUTRISOURCE FIBER 4 GM PACKET GT SCH ×2 (05:37→18:03)
[2023-07-30] MEDS: BACLOFEN 10 MG TABLET GT SCH ×3 (05:37→21:43)
[2023-07-30] MEDS: OMEPRAZOLE 20 MG CAPSULE.DR GT SCH (05:37)
[2023-07-30 07:18] VITALS: TEMP 99.1
[2023-07-30] MEDS: FINASTERIDE 5 MG TABLET GT SCH (09:06)
[2023-07-30] MEDS: REMEDY ESSENTIAL ZINC PASTE 113 GM TP SCH ×2 (09:06→20:33)
[2023-07-30] MEDS: ASCORBIC ACID 500 MG TABLET GT SCH (09:06)
[2023-07-30] MEDS: DULOXETINE 20 MG CAPSULE.DR GT SCH (09:06)
[2023-07-30] MEDS: VITAMINS A AND D 5 GM UD PKT TP SCH (09:06)
[2023-07-30] MEDS: NEOMY/BACITRA/POLYMYXIN B OINT UD PACKET TP SCH (09:06)
[2023-07-30] MEDS: HYDROGEN PEROXIDE 3% 118 ML BOTTLE TP SCH ×2 (09:22→21:49)
[2023-07-30 19:48] VITALS: TEMP 98.1
[2023-07-30] MEDS: MULTIVIT, IRON, MIN NO. 8, FA TABLET GT SCH (20:33)
[2023-07-30] MEDS: PROTEIN SUPPLEMENT (PROSTAT) 30 ML LIQUID GT SCH (20:33)
[2023-07-31] MEDS: JEVITY 1.2 1000 ML LIQUID GT PRN (03:54)
[2023-07-31] MEDS: BACLOFEN 10 MG TABLET GT SCH ×3 (05:39→22:47)
[2023-07-31] MEDS: ACIDOPHILUS/BULGARICUS CHEW TAB GT SCH ×2 (05:39→18:09)
[2023-07-31] MEDS: SIMETHICONE 80 MG TAB.CHEW GT SCH ×4 (05:40→18:09)
[2023-07-31] MEDS: OMEPRAZOLE 20 MG CAPSULE.DR GT SCH (05:40)
[2023-07-31] MEDS: NUTRISOURCE FIBER 4 GM PACKET GT SCH ×2 (05:40→18:09)
[2023-07-31 07:20] VITALS: TEMP 98.4
[2023-07-31] MEDS: HYDROGEN PEROXIDE 3% 118 ML BOTTLE TP SCH ×2 (07:34→21:08)
[2023-07-31] MEDS: REMEDY ESSENTIAL ZINC PASTE 113 GM TP SCH ×2 (09:40→20:35)
[2023-07-31] MEDS: DULOXETINE 20 MG CAPSULE.DR GT SCH (09:40)
[2023-07-31] MEDS: ASCORBIC ACID 500 MG TABLET GT SCH (09:40)
[2023-07-31] MEDS: HARRIS FLUSH ENEMA PR SCH (09:40)
[2023-07-31] MEDS: FINASTERIDE 5 MG TABLET GT SCH (09:40)
[2023-07-31] MEDS: NEOMY/BACITRA/POLYMYXIN B OINT UD PACKET TP SCH (09:40)
[2023-07-31] MEDS: VITAMINS A AND D 5 GM UD PKT TP SCH (09:40)
[2023-07-31 20:00] VITALS: TEMP 97.4
[2023-07-31] MEDS: MULTIVIT, IRON, MIN NO. 8, FA TABLET GT SCH (20:32)
[2023-07-31] MEDS: PROTEIN SUPPLEMENT (PROSTAT) 30 ML LIQUID GT SCH (20:32)
[2023-08-01] MEDS: JEVITY 1.2 1000 ML LIQUID GT PRN ×2 (01:30→18:35)
[2023-08-01] MEDS: HARRIS FLUSH ENEMA PR PRN (03:00)
[2023-08-01] MEDS: ACIDOPHILUS/BULGARICUS CHEW TAB GT SCH ×2 (06:12→18:11)
[2023-08-01] MEDS: OMEPRAZOLE 20 MG CAPSULE.DR GT SCH (06:12)
[2023-08-01] MEDS: NUTRISOURCE FIBER 4 GM PACKET GT SCH ×2 (06:12→18:11)
[2023-08-01] MEDS: SIMETHICONE 80 MG TAB.CHEW GT SCH ×4 (06:12→18:11)
[2023-08-01] MEDS: BACLOFEN 10 MG TABLET GT SCH ×3 (06:12→21:36)
[2023-08-01 08:00] VITALS: TEMP 97.6
[2023-08-01] MEDS: FINASTERIDE 5 MG TABLET GT SCH (08:35)
[2023-08-01] MEDS: ASCORBIC ACID 500 MG TABLET GT SCH (08:37)
[2023-08-01] MEDS: REMEDY ESSENTIAL ZINC PASTE 113 GM TP SCH ×2 (08:37→21:36)
[2023-08-01] MEDS: NEOMY/BACITRA/POLYMYXIN B OINT UD PACKET TP SCH (08:37)
[2023-08-01] MEDS: VITAMINS A AND D 5 GM UD PKT TP SCH (08:37)
[2023-08-01] MEDS: DULOXETINE 20 MG CAPSULE.DR GT SCH (08:37)
[2023-08-01] MEDS: HYDROGEN PEROXIDE 3% 118 ML BOTTLE TP SCH ×2 (08:46→21:47)
[2023-08-01 20:00] VITALS: TEMP 97.7
[2023-08-01] MEDS: PROTEIN SUPPLEMENT (PROSTAT) 30 ML LIQUID GT SCH (21:34)
[2023-08-01] MEDS: MULTIVIT, IRON, MIN NO. 8, FA TABLET GT SCH (21:35)
[2023-08-02] MEDS: HARRIS FLUSH ENEMA PR PRN (05:00)
[2023-08-02] MEDS: NUTRISOURCE FIBER 4 GM PACKET GT SCH ×2 (05:56→18:05)
[2023-08-02] MEDS: OMEPRAZOLE 20 MG CAPSULE.DR GT SCH (05:56)
[2023-08-02] MEDS: ACIDOPHILUS/BULGARICUS CHEW TAB GT SCH ×2 (05:56→18:05)
[2023-08-02] MEDS: SIMETHICONE 80 MG TAB.CHEW GT SCH ×4 (05:56→18:05)
[2023-08-02] MEDS: BACLOFEN 10 MG TABLET GT SCH ×3 (05:56→21:15)
[2023-08-02] MEDS: HYDROGEN PEROXIDE 3% 118 ML BOTTLE TP SCH ×2 (07:16→21:10)
[2023-08-02 08:00] VITALS: TEMP 97
[2023-08-02] MEDS: REMEDY ESSENTIAL ZINC PASTE 113 GM TP SCH ×2 (09:10→21:15)
[2023-08-02] MEDS: VITAMINS A AND D 5 GM UD PKT TP SCH (09:10)
[2023-08-02] MEDS: DULOXETINE 20 MG CAPSULE.DR GT SCH (09:10)
[2023-08-02] MEDS: NEOMY/BACITRA/POLYMYXIN B OINT UD PACKET TP SCH (09:10)
[2023-08-02] MEDS: ASCORBIC ACID 500 MG TABLET GT SCH (09:10)
[2023-08-02] MEDS: FINASTERIDE 5 MG TABLET GT SCH (09:10)
[2023-08-02] MEDS: HARRIS FLUSH ENEMA PR SCH (09:10)
[2023-08-02] MEDS ORDERED: INFLUENZA VACCINE 2023-2024 0.5 ML DISP.SYRIN IM ONE (13:00)
[2023-08-02] MEDS: JEVITY 1.2 1000 ML LIQUID GT PRN (16:05)
[2023-08-02 19:52] VITALS: TEMP 98.3
[2023-08-02] MEDS: PROTEIN SUPPLEMENT (PROSTAT) 30 ML LIQUID GT SCH (21:13)
[2023-08-02] MEDS: MULTIVIT, IRON, MIN NO. 8, FA TABLET GT SCH (21:13)
[2023-08-03] MEDS: BACLOFEN 10 MG TABLET GT SCH ×3 (05:27→21:12)
[2023-08-03] MEDS: HARRIS FLUSH ENEMA PR PRN (05:27)
[2023-08-03] MEDS: ACIDOPHILUS/BULGARICUS CHEW TAB GT SCH ×2 (05:27→18:13)
[2023-08-03] MEDS: NUTRISOURCE FIBER 4 GM PACKET GT SCH ×2 (05:27→18:13)
[2023-08-03] MEDS: OMEPRAZOLE 20 MG CAPSULE.DR GT SCH (05:27)
[2023-08-03] MEDS: SIMETHICONE 80 MG TAB.CHEW GT SCH ×4 (05:27→18:13)
[2023-08-03] MEDS: HYDROGEN PEROXIDE 3% 118 ML BOTTLE TP SCH ×2 (07:09→20:49)
[2023-08-03 08:00] VITALS: TEMP 98
[2023-08-03] MEDS: VITAMINS A AND D 5 GM UD PKT TP SCH (08:56)
[2023-08-03] MEDS: DULOXETINE 20 MG CAPSULE.DR GT SCH (08:56)
[2023-08-03] MEDS: ASCORBIC ACID 500 MG TABLET GT SCH (08:56)
[2023-08-03] MEDS: NEOMY/BACITRA/POLYMYXIN B OINT UD PACKET TP SCH (08:56)
[2023-08-03] MEDS: REMEDY ESSENTIAL ZINC PASTE 113 GM TP SCH ×2 (08:56→21:10)
[2023-08-03] MEDS: FINASTERIDE 5 MG TABLET GT SCH (08:56)
[2023-08-03] MEDS: JEVITY 1.2 1000 ML LIQUID GT PRN (12:52)
[2023-08-03 19:53] VITALS: TEMP 98.3
[2023-08-03] MEDS: MULTIVIT, IRON, MIN NO. 8, FA TABLET GT SCH (21:10)
[2023-08-03] MEDS: PROTEIN SUPPLEMENT (PROSTAT) 30 ML LIQUID GT SCH (21:10)
[2023-08-04] MEDS: OMEPRAZOLE 20 MG CAPSULE.DR GT SCH (06:31)
[2023-08-04] MEDS: SIMETHICONE 80 MG TAB.CHEW GT SCH ×4 (06:31→18:09)
[2023-08-04] MEDS: ACIDOPHILUS/BULGARICUS CHEW TAB GT SCH ×2 (06:31→18:08)
[2023-08-04] MEDS: JEVITY 1.2 1000 ML LIQUID GT PRN (06:31)
[2023-08-04] MEDS: NUTRISOURCE FIBER 4 GM PACKET GT SCH ×2 (06:31→18:18)
[2023-08-04] MEDS: BACLOFEN 10 MG TABLET GT SCH ×3 (06:31→21:30)
[2023-08-04 07:51] VITALS: TEMP 98.4
[2023-08-04] MEDS: HARRIS FLUSH ENEMA PR SCH (08:23)
[2023-08-04] MEDS: FINASTERIDE 5 MG TABLET GT SCH (08:23)
[2023-08-04] MEDS: ASCORBIC ACID 500 MG TABLET GT SCH (08:23)
[2023-08-04] MEDS: REMEDY ESSENTIAL ZINC PASTE 113 GM TP SCH ×2 (08:23→21:29)
[2023-08-04] MEDS: DULOXETINE 20 MG CAPSULE.DR GT SCH (08:23)
[2023-08-04] MEDS: VITAMINS A AND D 5 GM UD PKT TP SCH (08:24)
[2023-08-04] MEDS: NEOMY/BACITRA/POLYMYXIN B OINT UD PACKET TP SCH (08:24)
[2023-08-04] MEDS: HYDROGEN PEROXIDE 3% 118 ML BOTTLE TP SCH ×2 (09:00→19:30)
[2023-08-04 20:00] VITALS: TEMP 98.1
[2023-08-04] MEDS: PROTEIN SUPPLEMENT (PROSTAT) 30 ML LIQUID GT SCH (21:28)
[2023-08-04] MEDS: MULTIVIT, IRON, MIN NO. 8, FA TABLET GT SCH (21:29)
[2023-08-05] MEDS: JEVITY 1.2 1000 ML LIQUID GT PRN ×2 (00:07→17:16)
[2023-08-05] MEDS: SIMETHICONE 80 MG TAB.CHEW GT SCH ×4 (00:10→17:16)
[2023-08-05] MEDS: NUTRISOURCE FIBER 4 GM PACKET GT SCH ×2 (05:27→17:16)
[2023-08-05] MEDS: OMEPRAZOLE 20 MG CAPSULE.DR GT SCH (05:27)
[2023-08-05] MEDS: BACLOFEN 10 MG TABLET GT SCH ×3 (05:27→21:11)
[2023-08-05] MEDS: ACIDOPHILUS/BULGARICUS CHEW TAB GT SCH ×2 (05:27→17:16)
[2023-08-05 07:46] VITALS: TEMP 98.2
[2023-08-05] MEDS: DULOXETINE 20 MG CAPSULE.DR GT SCH (08:18)
[2023-08-05] MEDS: VITAMINS A AND D 5 GM UD PKT TP SCH (08:19)
[2023-08-05] MEDS: FINASTERIDE 5 MG TABLET GT SCH (08:19)
[2023-08-05] MEDS: ASCORBIC ACID 500 MG TABLET GT SCH (08:19)
[2023-08-05] MEDS: REMEDY ESSENTIAL ZINC PASTE 113 GM TP SCH ×2 (08:19→21:11)
[2023-08-05] MEDS: HYDROGEN PEROXIDE 3% 118 ML BOTTLE TP SCH ×2 (09:00→23:03)
[2023-08-05] MEDS: NEOMY/BACITRA/POLYMYXIN B OINT UD PACKET TP SCH (09:00)
[2023-08-05] MEDS: POLYVINYL ALCOHOL OPHT DROPS 15 ML BOTTLE EACHEYE PRN (17:17)
[2023-08-05 20:00] VITALS: TEMP 98.4
[2023-08-05] MEDS: MULTIVIT, IRON, MIN NO. 8, FA TABLET GT SCH (21:11)
[2023-08-05] MEDS: PROTEIN SUPPLEMENT (PROSTAT) 30 ML LIQUID GT SCH (21:11)
[2023-08-06] MEDS: SIMETHICONE 80 MG TAB.CHEW GT SCH ×5 (00:08→23:23)
[2023-08-06] MEDS: BACLOFEN 10 MG TABLET GT SCH ×3 (05:15→21:06)
[2023-08-06] MEDS: ACIDOPHILUS/BULGARICUS CHEW TAB GT SCH ×2 (05:15→17:24)
[2023-08-06] MEDS: NUTRISOURCE FIBER 4 GM PACKET GT SCH ×2 (05:15→17:24)
[2023-08-06] MEDS: OMEPRAZOLE 20 MG CAPSULE.DR GT SCH (05:15)
[2023-08-06 07:29] VITALS: TEMP 97.5
[2023-08-06] MEDS: HYDROGEN PEROXIDE 3% 118 ML BOTTLE TP SCH ×2 (09:00→20:59)
[2023-08-06] MEDS: NEOMY/BACITRA/POLYMYXIN B OINT UD PACKET TP SCH ×3 (09:25→20:28)
[2023-08-06] MEDS: REMEDY ESSENTIAL ZINC PASTE 113 GM TP SCH ×2 (09:25→20:28)
[2023-08-06] MEDS: ASCORBIC ACID 500 MG TABLET GT SCH (09:25)
[2023-08-06] MEDS: VITAMINS A AND D 5 GM UD PKT TP SCH (09:25)
[2023-08-06] MEDS: DULOXETINE 20 MG CAPSULE.DR GT SCH (09:25)
[2023-08-06] MEDS: FINASTERIDE 5 MG TABLET GT SCH (09:25)
[2023-08-06 19:54] VITALS: TEMP 98.1
[2023-08-06] MEDS: MULTIVIT, IRON, MIN NO. 8, FA TABLET GT SCH (20:28)
[2023-08-06] MEDS: PROTEIN SUPPLEMENT (PROSTAT) 30 ML LIQUID GT SCH (20:28)
[2023-08-07] MEDS: JEVITY 1.2 1000 ML LIQUID GT PRN (01:28)
[2023-08-07] MEDS: ACIDOPHILUS/BULGARICUS CHEW TAB GT SCH ×2 (05:07→18:03)
[2023-08-07] MEDS: BACLOFEN 10 MG TABLET GT SCH ×3 (05:07→22:00)
[2023-08-07] MEDS: NUTRISOURCE FIBER 4 GM PACKET GT SCH ×2 (05:07→18:03)
[2023-08-07] MEDS: SIMETHICONE 80 MG TAB.CHEW GT SCH ×3 (05:07→18:03)
[2023-08-07] MEDS: OMEPRAZOLE 20 MG CAPSULE.DR GT SCH (05:07)
[2023-08-07 07:25] VITALS: TEMP 98
[2023-08-07] MEDS: HYDROGEN PEROXIDE 3% 118 ML BOTTLE TP SCH ×2 (09:00→19:18)
[2023-08-07] MEDS: HARRIS FLUSH ENEMA PR SCH (09:08)
[2023-08-07] MEDS: FINASTERIDE 5 MG TABLET GT SCH (09:08)
[2023-08-07] MEDS: ASCORBIC ACID 500 MG TABLET GT SCH (09:08)
[2023-08-07] MEDS: DULOXETINE 20 MG CAPSULE.DR GT SCH (09:08)
[2023-08-07] MEDS: REMEDY ESSENTIAL ZINC PASTE 113 GM TP SCH ×2 (09:09→20:42)
[2023-08-07] MEDS: NEOMY/BACITRA/POLYMYXIN B OINT UD PACKET TP SCH ×2 (09:09→20:42)
[2023-08-07] MEDS: VITAMINS A AND D 5 GM UD PKT TP SCH (09:09)
[2023-08-07 20:00] VITALS: TEMP 97
[2023-08-07] MEDS: PROTEIN SUPPLEMENT (PROSTAT) 30 ML LIQUID GT SCH (20:42)
[2023-08-07] MEDS: MULTIVIT, IRON, MIN NO. 8, FA TABLET GT SCH (20:42)
[2023-08-08] MEDS: SIMETHICONE 80 MG TAB.CHEW GT SCH ×5 (00:02→23:51)
[2023-08-08] MEDS: JEVITY 1.2 1000 ML LIQUID GT PRN (04:29)
[2023-08-08] MEDS: ACIDOPHILUS/BULGARICUS CHEW TAB GT SCH ×2 (06:07→18:16)
[2023-08-08] MEDS: BACLOFEN 10 MG TABLET GT SCH ×3 (06:07→22:37)
[2023-08-08] MEDS: NUTRISOURCE FIBER 4 GM PACKET GT SCH ×2 (06:07→18:16)
[2023-08-08] MEDS: OMEPRAZOLE 20 MG CAPSULE.DR GT SCH (06:07)
[2023-08-08 07:18] VITALS: TEMP 98.9
[2023-08-08] MEDS: ASCORBIC ACID 500 MG TABLET GT SCH (08:46)
[2023-08-08] MEDS: DULOXETINE 20 MG CAPSULE.DR GT SCH (08:46)
[2023-08-08] MEDS: FINASTERIDE 5 MG TABLET GT SCH (08:46)
[2023-08-08] MEDS: NEOMY/BACITRA/POLYMYXIN B OINT UD PACKET TP SCH ×2 (08:47→20:30)
[2023-08-08] MEDS: VITAMINS A AND D 5 GM UD PKT TP SCH (08:47)
[2023-08-08] MEDS: REMEDY ESSENTIAL ZINC PASTE 113 GM TP SCH ×2 (08:47→20:30)
[2023-08-08] MEDS: HYDROGEN PEROXIDE 3% 118 ML BOTTLE TP SCH ×2 (09:01→20:49)
[2023-08-08 20:00] VITALS: TEMP 99.2
[2023-08-08] MEDS: PROTEIN SUPPLEMENT (PROSTAT) 30 ML LIQUID GT SCH (20:30)
[2023-08-08] MEDS: MULTIVIT, IRON, MIN NO. 8, FA TABLET GT SCH (20:30)
[2023-08-09] MEDS: JEVITY 1.2 1000 ML LIQUID GT PRN (01:23)
[2023-08-09] MEDS: NUTRISOURCE FIBER 4 GM PACKET GT SCH ×2 (05:35→17:24)
[2023-08-09] MEDS: BACLOFEN 10 MG TABLET GT SCH ×3 (05:35→21:30)
[2023-08-09] MEDS: SIMETHICONE 80 MG TAB.CHEW GT SCH ×3 (05:35→17:24)
[2023-08-09] MEDS: ACIDOPHILUS/BULGARICUS CHEW TAB GT SCH ×2 (05:35→17:24)
[2023-08-09] MEDS: OMEPRAZOLE 20 MG CAPSULE.DR GT SCH (05:35)
[2023-08-09 07:53] VITALS: TEMP 97.8
[2023-08-09] MEDS: HYDROGEN PEROXIDE 3% 118 ML BOTTLE TP SCH ×2 (09:20→20:46)
[2023-08-09] MEDS: HARRIS FLUSH ENEMA PR SCH (09:32)
[2023-08-09] MEDS: FINASTERIDE 5 MG TABLET GT SCH (09:32)
[2023-08-09] MEDS: ASCORBIC ACID 500 MG TABLET GT SCH (09:32)
[2023-08-09] MEDS: DULOXETINE 20 MG CAPSULE.DR GT SCH (09:32)
[2023-08-09] MEDS: VITAMINS A AND D 5 GM UD PKT TP SCH (09:33)
[2023-08-09] MEDS: REMEDY ESSENTIAL ZINC PASTE 113 GM TP SCH ×2 (09:33→21:30)
[2023-08-09] MEDS: NEOMY/BACITRA/POLYMYXIN B OINT UD PACKET TP SCH ×2 (09:33→21:30)
[2023-08-09 20:00] VITALS: TEMP 98.9
[2023-08-09] MEDS: PROTEIN SUPPLEMENT (PROSTAT) 30 ML LIQUID GT SCH (21:29)
[2023-08-09] MEDS: MULTIVIT, IRON, MIN NO. 8, FA TABLET GT SCH (21:30)
[2023-08-10] MEDS: JEVITY 1.2 1000 ML LIQUID GT PRN (00:17)
[2023-08-10] MEDS: SIMETHICONE 80 MG TAB.CHEW GT SCH ×4 (00:17→18:38)
[2023-08-10] MEDS: OMEPRAZOLE 20 MG CAPSULE.DR GT SCH (06:09)
[2023-08-10] MEDS: ACIDOPHILUS/BULGARICUS CHEW TAB GT SCH ×2 (06:09→18:38)
[2023-08-10] MEDS: NUTRISOURCE FIBER 4 GM PACKET GT SCH ×2 (06:09→18:38)
[2023-08-10] MEDS: BACLOFEN 10 MG TABLET GT SCH ×3 (06:09→22:31)
[2023-08-10 07:58] VITALS: TEMP 98
[2023-08-10] MEDS: FINASTERIDE 5 MG TABLET GT SCH (08:46)
[2023-08-10] MEDS: DULOXETINE 20 MG CAPSULE.DR GT SCH (08:46)
[2023-08-10] MEDS: ASCORBIC ACID 500 MG TABLET GT SCH (08:46)
[2023-08-10] MEDS: MAGNESIUM HYDROXIDE 30 ML LIQUID UDC GT PRN (08:46)
[2023-08-10] MEDS: REMEDY ESSENTIAL ZINC PASTE 113 GM TP SCH ×2 (08:47→20:41)
[2023-08-10] MEDS: NEOMY/BACITRA/POLYMYXIN B OINT UD PACKET TP SCH ×2 (08:47→20:41)
[2023-08-10] MEDS: VITAMINS A AND D 5 GM UD PKT TP SCH (08:47)
[2023-08-10] MEDS: HARRIS FLUSH ENEMA PR PRN (09:00)
[2023-08-10] MEDS: HYDROGEN PEROXIDE 3% 118 ML BOTTLE TP SCH ×2 (09:16→21:00)
[2023-08-10 20:00] VITALS: TEMP 99.2
[2023-08-10] MEDS: PROTEIN SUPPLEMENT (PROSTAT) 30 ML LIQUID GT SCH (20:40)
[2023-08-10] MEDS: MULTIVIT, IRON, MIN NO. 8, FA TABLET GT SCH (20:40)
[2023-08-11] MEDS: SIMETHICONE 80 MG TAB.CHEW GT SCH ×5 (00:16→23:51)
[2023-08-11] MEDS: JEVITY 1.2 1000 ML LIQUID GT PRN ×2 (00:58→21:25)
[2023-08-11] MEDS: BACLOFEN 10 MG TABLET GT SCH ×3 (06:24→21:16)
[2023-08-11] MEDS: OMEPRAZOLE 20 MG CAPSULE.DR GT SCH (06:24)
[2023-08-11] MEDS: NUTRISOURCE FIBER 4 GM PACKET GT SCH ×2 (06:24→18:49)
[2023-08-11] MEDS: ACIDOPHILUS/BULGARICUS CHEW TAB GT SCH ×2 (06:24→18:49)
[2023-08-11 08:00] VITALS: TEMP 98
[2023-08-11] MEDS: HYDROGEN PEROXIDE 3% 118 ML BOTTLE TP SCH ×2 (08:54→19:26)
[2023-08-11] MEDS: FINASTERIDE 5 MG TABLET GT SCH (09:27)
[2023-08-11] MEDS: DULOXETINE 20 MG CAPSULE.DR GT SCH (09:27)
[2023-08-11] MEDS: HARRIS FLUSH ENEMA PR SCH (09:27)
[2023-08-11] MEDS: ASCORBIC ACID 500 MG TABLET GT SCH (09:27)
[2023-08-11] MEDS: VITAMINS A AND D 5 GM UD PKT TP SCH (09:28)
[2023-08-11] MEDS: REMEDY ESSENTIAL ZINC PASTE 113 GM TP SCH ×2 (09:28→21:16)
[2023-08-11] MEDS: NEOMY/BACITRA/POLYMYXIN B OINT UD PACKET TP SCH ×3 (09:28→21:16)
[2023-08-11] MEDS: MAGNESIUM HYDROXIDE 30 ML LIQUID UDC GT PRN (09:29)
[2023-08-11 20:00] VITALS: TEMP 98
[2023-08-11] MEDS: PROTEIN SUPPLEMENT (PROSTAT) 30 ML LIQUID GT SCH (21:16)
[2023-08-11] MEDS: CLOTRIMAZOLE 1% CREAM 30 GM TUBE TP SCH (21:16)
[2023-08-11] MEDS: MULTIVIT, IRON, MIN NO. 8, FA TABLET GT SCH (21:16)
[2023-08-12] MEDS: OMEPRAZOLE 20 MG CAPSULE.DR GT SCH (06:13)
[2023-08-12] MEDS: SIMETHICONE 80 MG TAB.CHEW GT SCH ×3 (06:13→17:09)
[2023-08-12] MEDS: NUTRISOURCE FIBER 4 GM PACKET GT SCH ×2 (06:13→17:09)
[2023-08-12] MEDS: BACLOFEN 10 MG TABLET GT SCH ×3 (06:13→22:12)
[2023-08-12] MEDS: ACIDOPHILUS/BULGARICUS CHEW TAB GT SCH ×2 (06:13→17:09)
[2023-08-12] MEDS: HYDROGEN PEROXIDE 3% 118 ML BOTTLE TP SCH ×2 (07:23→21:03)
[2023-08-12 07:34] VITALS: TEMP 98.1
[2023-08-12] MEDS: DULOXETINE 20 MG CAPSULE.DR GT SCH (08:52)
[2023-08-12] MEDS: FINASTERIDE 5 MG TABLET GT SCH (08:52)
[2023-08-12] MEDS: REMEDY ESSENTIAL ZINC PASTE 113 GM TP SCH ×2 (08:53→20:32)
[2023-08-12] MEDS: NEOMY/BACITRA/POLYMYXIN B OINT UD PACKET TP SCH ×4 (08:53→20:32)
[2023-08-12] MEDS: CLOTRIMAZOLE 1% CREAM 30 GM TUBE TP SCH ×2 (08:53→20:32)
[2023-08-12] MEDS: VITAMINS A AND D 5 GM UD PKT TP SCH (08:53)
[2023-08-12] MEDS: ASCORBIC ACID 500 MG TABLET GT SCH (08:53)
[2023-08-12] MEDS: JEVITY 1.2 1000 ML LIQUID GT PRN (17:09)
[2023-08-12] MEDS: PROTEIN SUPPLEMENT (PROSTAT) 30 ML LIQUID GT SCH (20:31)
[2023-08-12] MEDS: MULTIVIT, IRON, MIN NO. 8, FA TABLET GT SCH (20:31)
[2023-08-13] MEDS: SIMETHICONE 80 MG TAB.CHEW GT SCH ×4 (00:48→17:06)
[2023-08-13] MEDS: NUTRISOURCE FIBER 4 GM PACKET GT SCH ×2 (05:19→17:06)
[2023-08-13] MEDS: BACLOFEN 10 MG TABLET GT SCH ×2 (05:19→13:17)
[2023-08-13] MEDS: OMEPRAZOLE 20 MG CAPSULE.DR GT SCH (05:19)
[2023-08-13] MEDS: ACIDOPHILUS/BULGARICUS CHEW TAB GT SCH ×2 (05:19→17:06)
[2023-08-13 08:00] VITALS: TEMP 98.1
[2023-08-13] MEDS: HYDROGEN PEROXIDE 3% 118 ML BOTTLE TP SCH ×2 (08:16→21:50)
[2023-08-13] MEDS: FINASTERIDE 5 MG TABLET GT SCH (09:00)
[2023-08-13] MEDS: ASCORBIC ACID 500 MG TABLET GT SCH (09:00)
[2023-08-13] MEDS: DULOXETINE 20 MG CAPSULE.DR GT SCH (09:00)
[2023-08-13] MEDS: REMEDY ESSENTIAL ZINC PASTE 113 GM TP SCH (09:00)
[2023-08-13] MEDS: VITAMINS A AND D 5 GM UD PKT TP SCH (09:00)
[2023-08-13] MEDS: NEOMY/BACITRA/POLYMYXIN B OINT UD PACKET TP SCH ×2 (09:00)
[2023-08-13] MEDS: CLOTRIMAZOLE 1% CREAM 30 GM TUBE TP SCH (09:00)
[2023-08-13] MEDS: JEVITY 1.2 1000 ML LIQUID GT PRN (16:33)
[2023-08-13 20:02] VITALS: TEMP 98.7
[2023-08-14] MEDS: MULTIVIT, IRON, MIN NO. 8, FA TABLET GT SCH ×2 (00:34→21:43)
[2023-08-14] MEDS: PROTEIN SUPPLEMENT (PROSTAT) 30 ML LIQUID GT SCH ×2 (00:34→21:43)
[2023-08-14] MEDS: REMEDY ESSENTIAL ZINC PASTE 113 GM TP SCH ×3 (00:35→21:43)
[2023-08-14] MEDS: NEOMY/BACITRA/POLYMYXIN B OINT UD PACKET TP SCH ×6 (00:35→21:43)
[2023-08-14] MEDS: CLOTRIMAZOLE 1% CREAM 30 GM TUBE TP SCH ×3 (00:35→21:43)
[2023-08-14] MEDS: BACLOFEN 10 MG TABLET GT SCH ×4 (00:37→21:43)
[2023-08-14] MEDS: SIMETHICONE 80 MG TAB.CHEW GT SCH ×4 (00:38→17:43)
[2023-08-14] MEDS: ACIDOPHILUS/BULGARICUS CHEW TAB GT SCH ×2 (05:40→17:43)
[2023-08-14] MEDS: OMEPRAZOLE 20 MG CAPSULE.DR GT SCH (05:41)
[2023-08-14] MEDS: NUTRISOURCE FIBER 4 GM PACKET GT SCH ×2 (05:41→17:43)
[2023-08-14 06:17] LABS: BASOPHILS % (AUTO) 0.4 % (0.0-2.0); EOSINOPHILS # (AUTO) 0.2 K/uL (0.0-0.7); EOSINOPHILS % (AUTO) 2.4 % (0.0-7.0); HEMATOCRIT 37.8 % (36.7-47.1); LYMPHOCYTES # (AUTO) 1.9 K/uL (0.8-4.8); LYMPHOCYTES % (AUTO) 26.4 % (20.5-51.5); MEAN CORPUSCULAR HEMOGLOBIN 29.2 uug (23.8-33.4); MEAN CORPUSCULAR HGB CONC 34 g/dL (32.5-36.3); MEAN CORPUSCULAR VOLUME 85.3 fL (73.0-96.2); MONOCYTES # (AUTO) 0.7 K/uL (0.1-1.30); MONOCYTES % (AUTO) 9.7 % (0.0-11.0); NEUTROPHILS # (AUTO) 4.3 K/uL (1.8-8.9); NEUTROPHILS % (AUTO) 61.1 % (38.5-71.5); PLATELET COUNT (AUTO) 262 K/uL (152-348); RED BLOOD CELL COUNT(AUTO) 4.43 MIL/uL (4.06-5.63); RED CELL DISTRIBUTION WIDTH 14.7 % (12.1-16.2); WHITE BLOOD COUNT (AUTO) 7.1 K/uL (3.6-10.2)
[2023-08-14 06:55] LABS: DIFFERENTIAL COMMENT 1
[2023-08-14 07:00] LABS: CALCIUM 8.9 mg/dL (8.5-10.1); CARBON DIOXIDE 27 mmol/L (21-32); CHLORIDE 103 mmol/L (98-107); CREATININE 0.8 mg/dL (0.6-1.3); GLUCOSE 128 mg/dL (74-106); MAGNESIUM 2.3 mg/dL (1.8-2.4); PHOSPHOROUS 3.7 mg/dL (2.5-4.9); POTASSIUM 4.2 mmol/L (3.5-5.1); SODIUM SERUM 136 mmol/L (136-145); UREA NITROGEN, BLOOD 39 mg/dL (7-18)
[2023-08-14 08:00] VITALS: TEMP 98.7
[2023-08-14] MEDS: FINASTERIDE 5 MG TABLET GT SCH (08:12)
[2023-08-14] MEDS: DULOXETINE 20 MG CAPSULE.DR GT SCH (08:12)
[2023-08-14] MEDS: ASCORBIC ACID 500 MG TABLET GT SCH (08:12)
[2023-08-14] MEDS: HARRIS FLUSH ENEMA PR SCH (08:12)
[2023-08-14] MEDS: VITAMINS A AND D 5 GM UD PKT TP SCH (09:00)
[2023-08-14] MEDS: HYDROGEN PEROXIDE 3% 118 ML BOTTLE TP SCH ×2 (09:40→21:02)
[2023-08-14 12:00] VITALS: O2SAT 99
[2023-08-14 19:50] VITALS: TEMP 98.6
[2023-08-15] MEDS: SIMETHICONE 80 MG TAB.CHEW GT SCH ×4 (00:55→17:22)
[2023-08-15] MEDS: JEVITY 1.2 1000 ML LIQUID GT PRN ×2 (01:04→01:07)
[2023-08-15] MEDS: BACLOFEN 10 MG TABLET GT SCH ×3 (05:17→22:00)
[2023-08-15] MEDS: OMEPRAZOLE 20 MG CAPSULE.DR GT SCH (05:17)
[2023-08-15] MEDS: ACIDOPHILUS/BULGARICUS CHEW TAB GT SCH ×2 (05:17→17:22)
[2023-08-15] MEDS: NUTRISOURCE FIBER 4 GM PACKET GT SCH ×2 (05:17→17:22)
[2023-08-15 08:00] VITALS: TEMP 98.5
[2023-08-15] MEDS: FINASTERIDE 5 MG TABLET GT SCH (09:07)
[2023-08-15] MEDS: NEOMY/BACITRA/POLYMYXIN B OINT UD PACKET TP SCH ×4 (09:08→21:00)
[2023-08-15] MEDS: REMEDY ESSENTIAL ZINC PASTE 113 GM TP SCH ×2 (09:08→21:00)
[2023-08-15] MEDS: DULOXETINE 20 MG CAPSULE.DR GT SCH (09:08)
[2023-08-15] MEDS: VITAMINS A AND D 5 GM UD PKT TP SCH (09:08)
[2023-08-15] MEDS: CLOTRIMAZOLE 1% CREAM 30 GM TUBE TP SCH ×2 (09:09→21:00)
[2023-08-15] MEDS: HYDROGEN PEROXIDE 3% 118 ML BOTTLE TP SCH ×2 (09:09→20:15)
[2023-08-15] MEDS: ASCORBIC ACID 500 MG TABLET GT SCH (09:09)
[2023-08-15] MEDS: ACETAMINOPHEN 650 MG/20 ML UDC- SA PATIENTS-PAIN ONLY GT PRN (11:25)
[2023-08-15 13:54] VITALS: TEMP 98.1
[2023-08-15 20:00] VITALS: TEMP 98
[2023-08-15] MEDS: PROTEIN SUPPLEMENT (PROSTAT) 30 ML LIQUID GT SCH (21:00)
[2023-08-15] MEDS: MULTIVIT, IRON, MIN NO. 8, FA TABLET GT SCH (21:00)
[2023-08-16] MEDS: SIMETHICONE 80 MG TAB.CHEW GT SCH ×4 (00:13→17:12)
[2023-08-16] MEDS: BACLOFEN 10 MG TABLET GT SCH ×3 (05:45→22:27)
[2023-08-16] MEDS: OMEPRAZOLE 20 MG CAPSULE.DR GT SCH (05:45)
[2023-08-16] MEDS: NUTRISOURCE FIBER 4 GM PACKET GT SCH ×2 (05:45→17:12)
[2023-08-16] MEDS: ACIDOPHILUS/BULGARICUS CHEW TAB GT SCH ×2 (05:45→17:11)
[2023-08-16 08:00] VITALS: TEMP 98.3
[2023-08-16] MEDS: HYDROGEN PEROXIDE 3% 118 ML BOTTLE TP SCH ×2 (09:00→20:57)
[2023-08-16] MEDS: FINASTERIDE 5 MG TABLET GT SCH (09:00)
[2023-08-16] MEDS: DULOXETINE 20 MG CAPSULE.DR GT SCH (09:00)
[2023-08-16] MEDS: HARRIS FLUSH ENEMA PR SCH (09:00)
[2023-08-16] MEDS: ASCORBIC ACID 500 MG TABLET GT SCH (09:00)
[2023-08-16] MEDS: CLOTRIMAZOLE 1% CREAM 30 GM TUBE TP SCH ×2 (09:00→21:00)
[2023-08-16] MEDS: REMEDY ESSENTIAL ZINC PASTE 113 GM TP SCH ×2 (09:00→21:00)
[2023-08-16] MEDS: VITAMINS A AND D 5 GM UD PKT TP SCH (09:00)
[2023-08-16] MEDS: NEOMY/BACITRA/POLYMYXIN B OINT UD PACKET TP SCH ×2 (09:00→21:00)
[2023-08-16] MEDS: JEVITY 1.2 1000 ML LIQUID GT PRN (13:22)
[2023-08-16] MEDS: MAGNESIUM HYDROXIDE 30 ML LIQUID UDC GT PRN (15:45)
[2023-08-16] MEDS: PROTEIN SUPPLEMENT (PROSTAT) 30 ML LIQUID GT SCH (21:00)
[2023-08-16] MEDS: MULTIVIT, IRON, MIN NO. 8, FA TABLET GT SCH (21:00)
[2023-08-17] MEDS: SIMETHICONE 80 MG TAB.CHEW GT SCH ×4 (00:44→18:59)
[2023-08-17] MEDS: ACIDOPHILUS/BULGARICUS CHEW TAB GT SCH ×2 (06:19→18:59)
[2023-08-17] MEDS: OMEPRAZOLE 20 MG CAPSULE.DR GT SCH (06:20)
[2023-08-17] MEDS: BACLOFEN 10 MG TABLET GT SCH ×3 (06:20→22:24)
[2023-08-17] MEDS: NUTRISOURCE FIBER 4 GM PACKET GT SCH ×2 (06:20→18:59)
[2023-08-17] MEDS: HYDROGEN PEROXIDE 3% 118 ML BOTTLE TP SCH ×2 (08:12→21:00)
[2023-08-17] MEDS: NEOMY/BACITRA/POLYMYXIN B OINT UD PACKET TP SCH ×2 (09:00→21:00)
[2023-08-17] MEDS: DULOXETINE 20 MG CAPSULE.DR GT SCH (09:00)
[2023-08-17] MEDS: REMEDY ESSENTIAL ZINC PASTE 113 GM TP SCH ×2 (09:00→21:00)
[2023-08-17] MEDS: CLOTRIMAZOLE 1% CREAM 30 GM TUBE TP SCH ×2 (09:00→21:00)
[2023-08-17] MEDS: ASCORBIC ACID 500 MG TABLET GT SCH (09:00)
[2023-08-17] MEDS: VITAMINS A AND D 5 GM UD PKT TP SCH (09:00)
[2023-08-17] MEDS: FINASTERIDE 5 MG TABLET GT SCH (09:00)
[2023-08-17 13:43] VITALS: TEMP 98
[2023-08-17] MEDS: PROTEIN SUPPLEMENT (PROSTAT) 30 ML LIQUID GT SCH (21:00)
[2023-08-17] MEDS: MULTIVIT, IRON, MIN NO. 8, FA TABLET GT SCH (21:00)
[2023-08-18] MEDS: OMEPRAZOLE 20 MG CAPSULE.DR GT SCH (06:00)
[2023-08-18] MEDS: SIMETHICONE 80 MG TAB.CHEW GT SCH ×5 (06:00→23:54)
[2023-08-18] MEDS: BACLOFEN 10 MG TABLET GT SCH ×3 (06:00→21:43)
[2023-08-18] MEDS: NUTRISOURCE FIBER 4 GM PACKET GT SCH ×2 (06:00→17:07)
[2023-08-18] MEDS: ACIDOPHILUS/BULGARICUS CHEW TAB GT SCH ×2 (06:00→17:07)
[2023-08-18 08:09] VITALS: TEMP 98.7
[2023-08-18] MEDS: HYDROGEN PEROXIDE 3% 118 ML BOTTLE TP SCH ×2 (09:31→21:02)
[2023-08-18] MEDS: ASCORBIC ACID 500 MG TABLET GT SCH (09:41)
[2023-08-18] MEDS: DULOXETINE 20 MG CAPSULE.DR GT SCH (09:41)
[2023-08-18] MEDS: HARRIS FLUSH ENEMA PR SCH (09:41)
[2023-08-18] MEDS: FINASTERIDE 5 MG TABLET GT SCH (09:41)
[2023-08-18] MEDS: CLOTRIMAZOLE 1% CREAM 30 GM TUBE TP SCH ×2 (09:42→21:53)
[2023-08-18] MEDS: REMEDY ESSENTIAL ZINC PASTE 113 GM TP SCH ×2 (09:42→21:42)
[2023-08-18] MEDS: VITAMINS A AND D 5 GM UD PKT TP SCH (09:42)
[2023-08-18] MEDS: NEOMY/BACITRA/POLYMYXIN B OINT UD PACKET TP SCH ×2 (09:42→21:43)
[2023-08-18] MEDS: JEVITY 1.2 1000 ML LIQUID GT PRN (16:46)
[2023-08-18 20:00] VITALS: TEMP 98.8
[2023-08-18] MEDS: MULTIVIT, IRON, MIN NO. 8, FA TABLET GT SCH (21:42)
[2023-08-18] MEDS: PROTEIN SUPPLEMENT (PROSTAT) 30 ML LIQUID GT SCH (21:42)
[2023-08-19] MEDS: SIMETHICONE 80 MG TAB.CHEW GT SCH ×4 (05:54→23:51)
[2023-08-19] MEDS: ACIDOPHILUS/BULGARICUS CHEW TAB GT SCH ×2 (05:54→18:05)
[2023-08-19] MEDS: OMEPRAZOLE 20 MG CAPSULE.DR GT SCH (05:54)
[2023-08-19] MEDS: BACLOFEN 10 MG TABLET GT SCH ×3 (05:54→21:07)
[2023-08-19] MEDS: NUTRISOURCE FIBER 4 GM PACKET GT SCH ×2 (06:02→18:05)
[2023-08-19 07:35] VITALS: TEMP 97.7
[2023-08-19] MEDS: HYDROGEN PEROXIDE 3% 118 ML BOTTLE TP SCH ×2 (08:14→19:22)
[2023-08-19] MEDS: DULOXETINE 20 MG CAPSULE.DR GT SCH (09:00)
[2023-08-19] MEDS: VITAMINS A AND D 5 GM UD PKT TP SCH (09:00)
[2023-08-19] MEDS: FINASTERIDE 5 MG TABLET GT SCH (09:00)
[2023-08-19] MEDS: ASCORBIC ACID 500 MG TABLET GT SCH (09:00)
[2023-08-19] MEDS: CLOTRIMAZOLE 1% CREAM 30 GM TUBE TP SCH ×2 (09:00→21:06)
[2023-08-19] MEDS: NEOMY/BACITRA/POLYMYXIN B OINT UD PACKET TP SCH ×2 (09:00→21:07)
[2023-08-19] MEDS: REMEDY ESSENTIAL ZINC PASTE 113 GM TP SCH ×2 (09:00→21:07)
[2023-08-19 19:43] VITALS: TEMP 99.2
[2023-08-19] MEDS: MULTIVIT, IRON, MIN NO. 8, FA TABLET GT SCH (21:06)
[2023-08-19] MEDS: PROTEIN SUPPLEMENT (PROSTAT) 30 ML LIQUID GT SCH (21:06)
[2023-08-20] MEDS: JEVITY 1.2 1000 ML LIQUID GT PRN (02:09)
[2023-08-20] MEDS: BACLOFEN 10 MG TABLET GT SCH ×3 (05:51→21:38)
[2023-08-20] MEDS: ACIDOPHILUS/BULGARICUS CHEW TAB GT SCH ×2 (05:51→17:34)
[2023-08-20] MEDS: SIMETHICONE 80 MG TAB.CHEW GT SCH ×3 (05:51→17:34)
[2023-08-20] MEDS: OMEPRAZOLE 20 MG CAPSULE.DR GT SCH (05:51)
[2023-08-20] MEDS: NUTRISOURCE FIBER 4 GM PACKET GT SCH ×2 (05:51→17:34)
[2023-08-20 07:18] VITALS: TEMP 98.7
[2023-08-20] MEDS: ASCORBIC ACID 500 MG TABLET GT SCH (09:33)
[2023-08-20] MEDS: DULOXETINE 20 MG CAPSULE.DR GT SCH (09:33)
[2023-08-20] MEDS: FINASTERIDE 5 MG TABLET GT SCH (09:33)
[2023-08-20] MEDS: VITAMINS A AND D 5 GM UD PKT TP SCH (09:34)
[2023-08-20] MEDS: NEOMY/BACITRA/POLYMYXIN B OINT UD PACKET TP SCH ×2 (09:34→20:24)
[2023-08-20] MEDS: CLOTRIMAZOLE 1% CREAM 30 GM TUBE TP SCH ×2 (09:34→20:24)
[2023-08-20] MEDS: REMEDY ESSENTIAL ZINC PASTE 113 GM TP SCH ×2 (09:34→20:24)
[2023-08-20] MEDS: HYDROGEN PEROXIDE 3% 118 ML BOTTLE TP SCH ×2 (09:40→23:15)
[2023-08-20] MEDS: PROTEIN SUPPLEMENT (PROSTAT) 30 ML LIQUID GT SCH (20:24)
[2023-08-20] MEDS: MULTIVIT, IRON, MIN NO. 8, FA TABLET GT SCH (20:24)
[2023-08-20 20:43] VITALS: TEMP 98.9
[2023-08-21] MEDS: SIMETHICONE 80 MG TAB.CHEW GT SCH ×4 (00:53→17:28)
[2023-08-21] MEDS: ACIDOPHILUS/BULGARICUS CHEW TAB GT SCH ×2 (05:21→17:28)
[2023-08-21] MEDS: NUTRISOURCE FIBER 4 GM PACKET GT SCH ×2 (05:22→17:28)
[2023-08-21] MEDS: BACLOFEN 10 MG TABLET GT SCH ×3 (05:22→21:43)
[2023-08-21] MEDS: OMEPRAZOLE 20 MG CAPSULE.DR GT SCH (05:22)
[2023-08-21 07:18] VITALS: TEMP 98.2
[2023-08-21 07:22] VITALS: TEMP 98.2
[2023-08-21] MEDS: HYDROGEN PEROXIDE 3% 118 ML BOTTLE TP SCH ×2 (07:27→20:50)
[2023-08-21] MEDS: FINASTERIDE 5 MG TABLET GT SCH (09:09)
[2023-08-21] MEDS: DULOXETINE 20 MG CAPSULE.DR GT SCH (09:09)
[2023-08-21] MEDS: CLOTRIMAZOLE 1% CREAM 30 GM TUBE TP SCH ×2 (09:09→21:42)
[2023-08-21] MEDS: NEOMY/BACITRA/POLYMYXIN B OINT UD PACKET TP SCH ×2 (09:09→21:43)
[2023-08-21] MEDS: HARRIS FLUSH ENEMA PR SCH (09:09)
[2023-08-21] MEDS: VITAMINS A AND D 5 GM UD PKT TP SCH (09:09)
[2023-08-21] MEDS: REMEDY ESSENTIAL ZINC PASTE 113 GM TP SCH ×2 (09:09→21:43)
[2023-08-21] MEDS: ASCORBIC ACID 500 MG TABLET GT SCH (09:09)
[2023-08-21] MEDS: PROTEIN SUPPLEMENT (PROSTAT) 30 ML LIQUID GT SCH (21:37)
[2023-08-21] MEDS: MULTIVIT, IRON, MIN NO. 8, FA TABLET GT SCH (21:42)
[2023-08-22] MEDS: JEVITY 1.2 1000 ML LIQUID GT PRN ×2 (01:12→20:37)
[2023-08-22] MEDS: SIMETHICONE 80 MG TAB.CHEW GT SCH ×4 (05:56→18:32)
[2023-08-22] MEDS: BACLOFEN 10 MG TABLET GT SCH ×3 (05:56→22:45)
[2023-08-22] MEDS: ACIDOPHILUS/BULGARICUS CHEW TAB GT SCH ×2 (05:56→18:32)
[2023-08-22] MEDS: OMEPRAZOLE 20 MG CAPSULE.DR GT SCH (05:56)
[2023-08-22] MEDS: NUTRISOURCE FIBER 4 GM PACKET GT SCH ×2 (05:56→18:32)
[2023-08-22 07:27] VITALS: TEMP 98.6
[2023-08-22] MEDS: FINASTERIDE 5 MG TABLET GT SCH (08:55)
[2023-08-22] MEDS: DULOXETINE 20 MG CAPSULE.DR GT SCH (08:55)
[2023-08-22] MEDS: ASCORBIC ACID 500 MG TABLET GT SCH (08:55)
[2023-08-22] MEDS: CLOTRIMAZOLE 1% CREAM 30 GM TUBE TP SCH ×2 (08:56→20:29)
[2023-08-22] MEDS: VITAMINS A AND D 5 GM UD PKT TP SCH (08:56)
[2023-08-22] MEDS: NEOMY/BACITRA/POLYMYXIN B OINT UD PACKET TP SCH ×2 (08:56→20:30)
[2023-08-22] MEDS: REMEDY ESSENTIAL ZINC PASTE 113 GM TP SCH ×2 (08:56→20:29)
[2023-08-22] MEDS: HYDROGEN PEROXIDE 3% 118 ML BOTTLE TP SCH ×2 (09:00→21:00)
[2023-08-22 19:57] VITALS: TEMP 98.1
[2023-08-22] MEDS: PROTEIN SUPPLEMENT (PROSTAT) 30 ML LIQUID GT SCH (20:26)
[2023-08-22] MEDS: MULTIVIT, IRON, MIN NO. 8, FA TABLET GT SCH (20:27)
[2023-08-23] MEDS: ACIDOPHILUS/BULGARICUS CHEW TAB GT SCH ×2 (05:47→18:05)
[2023-08-23] MEDS: NUTRISOURCE FIBER 4 GM PACKET GT SCH ×2 (05:48→18:05)
[2023-08-23] MEDS: SIMETHICONE 80 MG TAB.CHEW GT SCH ×5 (05:48→23:10)
[2023-08-23] MEDS: BACLOFEN 10 MG TABLET GT SCH ×3 (05:48→21:05)
[2023-08-23] MEDS: OMEPRAZOLE 20 MG CAPSULE.DR GT SCH (05:48)
[2023-08-23 07:39] VITALS: TEMP 98.7
[2023-08-23] MEDS: DULOXETINE 20 MG CAPSULE.DR GT SCH (08:12)
[2023-08-23] MEDS: FINASTERIDE 5 MG TABLET GT SCH (08:12)
[2023-08-23] MEDS: ASCORBIC ACID 500 MG TABLET GT SCH (08:12)
[2023-08-23] MEDS: HARRIS FLUSH ENEMA PR SCH (08:12)
[2023-08-23] MEDS: NEOMY/BACITRA/POLYMYXIN B OINT UD PACKET TP SCH ×2 (08:24→20:23)
[2023-08-23] MEDS: CLOTRIMAZOLE 1% CREAM 30 GM TUBE TP SCH ×2 (08:24→20:23)
[2023-08-23] MEDS: VITAMINS A AND D 5 GM UD PKT TP SCH (08:24)
[2023-08-23] MEDS: REMEDY ESSENTIAL ZINC PASTE 113 GM TP SCH ×2 (08:24→20:23)
[2023-08-23] MEDS: HYDROGEN PEROXIDE 3% 118 ML BOTTLE TP SCH ×2 (09:42→21:00)
[2023-08-23] MEDS: JEVITY 1.2 1000 ML LIQUID GT PRN (12:55)
[2023-08-23 20:12] VITALS: TEMP 98.4
[2023-08-23] MEDS: PROTEIN SUPPLEMENT (PROSTAT) 30 ML LIQUID GT SCH (20:23)
[2023-08-23] MEDS: MULTIVIT, IRON, MIN NO. 8, FA TABLET GT SCH (20:23)
[2023-08-24] MEDS: JEVITY 1.2 1000 ML LIQUID GT PRN ×2 (03:09→22:03)
[2023-08-24] MEDS: SIMETHICONE 80 MG TAB.CHEW GT SCH ×3 (05:21→17:07)
[2023-08-24] MEDS: OMEPRAZOLE 20 MG CAPSULE.DR GT SCH (05:21)
[2023-08-24] MEDS: BACLOFEN 10 MG TABLET GT SCH ×3 (05:21→22:03)
[2023-08-24] MEDS: ACIDOPHILUS/BULGARICUS CHEW TAB GT SCH ×2 (05:21→17:07)
[2023-08-24] MEDS: NUTRISOURCE FIBER 4 GM PACKET GT SCH ×2 (05:21→17:07)
[2023-08-24 07:53] VITALS: TEMP 97.6
[2023-08-24] MEDS: FINASTERIDE 5 MG TABLET GT SCH (08:04)
[2023-08-24] MEDS: VITAMINS A AND D 5 GM UD PKT TP SCH (08:04)
[2023-08-24] MEDS: NEOMY/BACITRA/POLYMYXIN B OINT UD PACKET TP SCH ×2 (08:04→21:00)
[2023-08-24] MEDS: CLOTRIMAZOLE 1% CREAM 30 GM TUBE TP SCH ×2 (08:04→21:00)
[2023-08-24] MEDS: REMEDY ESSENTIAL ZINC PASTE 113 GM TP SCH ×2 (08:04→21:00)
[2023-08-24] MEDS: ASCORBIC ACID 500 MG TABLET GT SCH (08:04)
[2023-08-24] MEDS: DULOXETINE 20 MG CAPSULE.DR GT SCH (08:04)
[2023-08-24] MEDS: HYDROGEN PEROXIDE 3% 118 ML BOTTLE TP SCH (09:52)
[2023-08-24 19:50] VITALS: TEMP 99.8
[2023-08-24] MEDS: MULTIVIT, IRON, MIN NO. 8, FA TABLET GT SCH (21:00)
[2023-08-24] MEDS: PROTEIN SUPPLEMENT (PROSTAT) 30 ML LIQUID GT SCH (21:00)
[2023-08-25] MEDS: HYDROGEN PEROXIDE 3% 118 ML BOTTLE TP SCH ×3 (01:58→21:08)
[2023-08-25] MEDS: NUTRISOURCE FIBER 4 GM PACKET GT SCH ×2 (05:14→18:05)
[2023-08-25] MEDS: SIMETHICONE 80 MG TAB.CHEW GT SCH ×5 (05:14→23:18)
[2023-08-25] MEDS: BACLOFEN 10 MG TABLET GT SCH ×3 (05:14→22:00)
[2023-08-25] MEDS: ACIDOPHILUS/BULGARICUS CHEW TAB GT SCH ×2 (05:14→18:05)
[2023-08-25] MEDS: OMEPRAZOLE 20 MG CAPSULE.DR GT SCH (05:15)
[2023-08-25 08:21] VITALS: TEMP 98.5
[2023-08-25] MEDS: HARRIS FLUSH ENEMA PR SCH (09:26)
[2023-08-25] MEDS: ASCORBIC ACID 500 MG TABLET GT SCH (09:26)
[2023-08-25] MEDS: DULOXETINE 20 MG CAPSULE.DR GT SCH (09:26)
[2023-08-25] MEDS: FINASTERIDE 5 MG TABLET GT SCH (09:26)
[2023-08-25] MEDS: CLOTRIMAZOLE 1% CREAM 30 GM TUBE TP SCH (09:27)
[2023-08-25] MEDS: NEOMY/BACITRA/POLYMYXIN B OINT UD PACKET TP SCH (09:27)
[2023-08-25] MEDS: REMEDY ESSENTIAL ZINC PASTE 113 GM TP SCH ×2 (09:27→20:25)
[2023-08-25] MEDS: VITAMINS A AND D 5 GM UD PKT TP SCH (09:27)
[2023-08-25] MEDS: JEVITY 1.2 1000 ML LIQUID GT PRN (16:26)
[2023-08-25 20:00] VITALS: TEMP 99
[2023-08-25] MEDS: MULTIVIT, IRON, MIN NO. 8, FA TABLET GT SCH (20:24)
[2023-08-25] MEDS: PROTEIN SUPPLEMENT (PROSTAT) 30 ML LIQUID GT SCH (20:24)
[2023-08-26] MEDS: ACIDOPHILUS/BULGARICUS CHEW TAB GT SCH ×2 (06:20→18:08)
[2023-08-26] MEDS: SIMETHICONE 80 MG TAB.CHEW GT SCH ×4 (06:21→23:20)
[2023-08-26] MEDS: NUTRISOURCE FIBER 4 GM PACKET GT SCH ×2 (06:21→18:08)
[2023-08-26] MEDS: OMEPRAZOLE 20 MG CAPSULE.DR GT SCH (06:21)
[2023-08-26] MEDS: BACLOFEN 10 MG TABLET GT SCH ×3 (06:21→21:35)
[2023-08-26 07:45] VITALS: TEMP 98.9
[2023-08-26] MEDS: REMEDY ESSENTIAL ZINC PASTE 113 GM TP SCH ×2 (08:19→20:34)
[2023-08-26] MEDS: FINASTERIDE 5 MG TABLET GT SCH (08:19)
[2023-08-26] MEDS: VITAMINS A AND D 5 GM UD PKT TP SCH (08:19)
[2023-08-26] MEDS: ASCORBIC ACID 500 MG TABLET GT SCH (08:19)
[2023-08-26] MEDS: DULOXETINE 20 MG CAPSULE.DR GT SCH (08:19)
[2023-08-26] MEDS: HYDROGEN PEROXIDE 3% 118 ML BOTTLE TP SCH ×2 (09:00→20:41)
[2023-08-26] MEDS: JEVITY 1.2 1000 ML LIQUID GT PRN (12:38)
[2023-08-26 19:50] VITALS: TEMP 99
[2023-08-26] MEDS: PROTEIN SUPPLEMENT (PROSTAT) 30 ML LIQUID GT SCH (20:34)
[2023-08-26] MEDS: MULTIVIT, IRON, MIN NO. 8, FA TABLET GT SCH (20:34)
[2023-08-27] MEDS: JEVITY 1.2 1000 ML LIQUID GT PRN ×2 (02:25→18:57)
[2023-08-27] MEDS: BACLOFEN 10 MG TABLET GT SCH ×3 (05:12→21:25)
[2023-08-27] MEDS: ACIDOPHILUS/BULGARICUS CHEW TAB GT SCH ×2 (05:12→17:11)
[2023-08-27] MEDS: SIMETHICONE 80 MG TAB.CHEW GT SCH ×4 (05:12→23:03)
[2023-08-27] MEDS: NUTRISOURCE FIBER 4 GM PACKET GT SCH ×2 (05:13→17:11)
[2023-08-27] MEDS: OMEPRAZOLE 20 MG CAPSULE.DR GT SCH (05:13)
[2023-08-27 07:47] VITALS: TEMP 97.6
[2023-08-27] MEDS: VITAMINS A AND D 5 GM UD PKT TP SCH (08:46)
[2023-08-27] MEDS: FINASTERIDE 5 MG TABLET GT SCH (08:46)
[2023-08-27] MEDS: REMEDY ESSENTIAL ZINC PASTE 113 GM TP SCH ×2 (08:46→20:34)
[2023-08-27] MEDS: DULOXETINE 20 MG CAPSULE.DR GT SCH (08:46)
[2023-08-27] MEDS: HYDROGEN PEROXIDE 3% 118 ML BOTTLE TP SCH ×2 (08:50→21:16)
[2023-08-27 19:57] VITALS: TEMP 99
[2023-08-27] MEDS: MULTIVIT, IRON, MIN NO. 8, FA TABLET GT SCH (20:33)
[2023-08-27] MEDS: PROTEIN SUPPLEMENT (PROSTAT) 30 ML LIQUID GT SCH (20:33)
[2023-08-27] MEDS: ASCORBIC ACID 500 MG TABLET GT SCH (20:34)
[2023-08-28] MEDS: NUTRISOURCE FIBER 4 GM PACKET GT SCH ×2 (05:15→17:15)
[2023-08-28] MEDS: ACIDOPHILUS/BULGARICUS CHEW TAB GT SCH ×2 (05:15→17:15)
[2023-08-28] MEDS: OMEPRAZOLE 20 MG CAPSULE.DR GT SCH (05:15)
[2023-08-28] MEDS: SIMETHICONE 80 MG TAB.CHEW GT SCH ×4 (05:15→23:25)
[2023-08-28] MEDS: BACLOFEN 10 MG TABLET GT SCH ×3 (05:15→22:15)
[2023-08-28 07:27] VITALS: TEMP 98.7
[2023-08-28] MEDS: HYDROGEN PEROXIDE 3% 118 ML BOTTLE TP SCH ×2 (07:38→21:00)
[2023-08-28] MEDS: HARRIS FLUSH ENEMA PR SCH (08:45)
[2023-08-28] MEDS: VITAMINS A AND D 5 GM UD PKT TP SCH (08:45)
[2023-08-28] MEDS: FINASTERIDE 5 MG TABLET GT SCH (08:45)
[2023-08-28] MEDS: DULOXETINE 20 MG CAPSULE.DR GT SCH (08:45)
[2023-08-28] MEDS: REMEDY ESSENTIAL ZINC PASTE 113 GM TP SCH ×2 (08:45→20:46)
[2023-08-28] MEDS: JEVITY 1.2 1000 ML LIQUID GT PRN (12:06)
[2023-08-28] MEDS ORDERED: COVID-19 VACC, SPIKEVAX (PHA) 50 MCG/0.5 ML VIAL IM ONE (14:00)
[2023-08-28 19:51] VITALS: TEMP 98.8
[2023-08-28] MEDS: ASCORBIC ACID 500 MG TABLET GT SCH (20:46)
[2023-08-28] MEDS: MULTIVIT, IRON, MIN NO. 8, FA TABLET GT SCH (20:46)
[2023-08-28] MEDS: PROTEIN SUPPLEMENT (PROSTAT) 30 ML LIQUID GT SCH (20:46)
[2023-08-29 00:04] VITALS: TEMP 98.6
[2023-08-29] MEDS: BACLOFEN 10 MG TABLET GT SCH ×3 (05:28→22:44)
[2023-08-29] MEDS: OMEPRAZOLE 20 MG CAPSULE.DR GT SCH (05:28)
[2023-08-29] MEDS: ACIDOPHILUS/BULGARICUS CHEW TAB GT SCH ×2 (05:28→18:19)
[2023-08-29] MEDS: SIMETHICONE 80 MG TAB.CHEW GT SCH ×4 (05:28→23:43)
[2023-08-29] MEDS: NUTRISOURCE FIBER 4 GM PACKET GT SCH ×2 (05:28→18:19)
[2023-08-29 06:50] VITALS: TEMP 99
[2023-08-29 08:00] VITALS: TEMP 98.6
[2023-08-29] MEDS: HYDROGEN PEROXIDE 3% 118 ML BOTTLE TP SCH ×2 (08:26→20:45)
[2023-08-29] MEDS: FINASTERIDE 5 MG TABLET GT SCH (08:34)
[2023-08-29] MEDS: DULOXETINE 20 MG CAPSULE.DR GT SCH (08:34)
[2023-08-29] MEDS: REMEDY ESSENTIAL ZINC PASTE 113 GM TP SCH ×2 (08:35→20:17)
[2023-08-29] MEDS: VITAMINS A AND D 5 GM UD PKT TP SCH (08:35)
[2023-08-29 12:00] VITALS: TEMP 97.4
[2023-08-29 16:00] VITALS: TEMP 97.6
[2023-08-29] MEDS: ASCORBIC ACID 500 MG TABLET GT SCH (20:16)
[2023-08-29] MEDS: PROTEIN SUPPLEMENT (PROSTAT) 30 ML LIQUID GT SCH (20:16)
[2023-08-29] MEDS: MULTIVIT, IRON, MIN NO. 8, FA TABLET GT SCH (20:16)
[2023-08-29 20:18] VITALS: BP 134/54; TEMP 98.9; O2SAT 99
[2023-08-30 00:05] VITALS: TEMP 100.2
[2023-08-30] MEDS: JEVITY 1.2 1000 ML LIQUID GT PRN (03:27)
[2023-08-30 04:35] VITALS: TEMP 98.7
[2023-08-30] MEDS: ACIDOPHILUS/BULGARICUS CHEW TAB GT SCH ×2 (05:33→18:12)
[2023-08-30] MEDS: OMEPRAZOLE 20 MG CAPSULE.DR GT SCH (05:33)
[2023-08-30] MEDS: BACLOFEN 10 MG TABLET GT SCH ×3 (05:33→22:31)
[2023-08-30] MEDS: SIMETHICONE 80 MG TAB.CHEW GT SCH ×3 (05:33→18:12)
[2023-08-30] MEDS: NUTRISOURCE FIBER 4 GM PACKET GT SCH ×2 (05:33→18:12)
[2023-08-30 08:00] VITALS: TEMP 98.8
[2023-08-30] MEDS: REMEDY ESSENTIAL ZINC PASTE 113 GM TP SCH ×2 (08:30→20:46)
[2023-08-30] MEDS: DULOXETINE 20 MG CAPSULE.DR GT SCH (08:30)
[2023-08-30] MEDS: FINASTERIDE 5 MG TABLET GT SCH (08:30)
[2023-08-30] MEDS: HARRIS FLUSH ENEMA PR SCH (08:30)
[2023-08-30] MEDS: VITAMINS A AND D 5 GM UD PKT TP SCH (08:30)
[2023-08-30] MEDS: HYDROGEN PEROXIDE 3% 118 ML BOTTLE TP SCH ×2 (09:00→21:46)
[2023-08-30 12:33] VITALS: TEMP 98.8
[2023-08-30 16:12] VITALS: TEMP 97
[2023-08-30 19:39] VITALS: TEMP 98.1
[2023-08-30] MEDS: MULTIVIT, IRON, MIN NO. 8, FA TABLET GT SCH (20:45)
[2023-08-30] MEDS: ASCORBIC ACID 500 MG TABLET GT SCH (20:45)
[2023-08-30] MEDS: PROTEIN SUPPLEMENT (PROSTAT) 30 ML LIQUID GT SCH (20:45)
[2023-08-31] VITALS: TEMP 98.4
[2023-08-31 01:35] VITALS: TEMP 98.4
[2023-08-31 05:19] VITALS: TEMP 98.1
[2023-08-31] MEDS: OMEPRAZOLE 20 MG CAPSULE.DR GT SCH (06:07)
[2023-08-31] MEDS: BACLOFEN 10 MG TABLET GT SCH ×3 (06:07→21:57)
[2023-08-31] MEDS: NUTRISOURCE FIBER 4 GM PACKET GT SCH ×2 (06:07→16:48)
[2023-08-31] MEDS: SIMETHICONE 80 MG TAB.CHEW GT SCH ×4 (06:07→16:48)
[2023-08-31] MEDS: ACIDOPHILUS/BULGARICUS CHEW TAB GT SCH ×2 (06:07→16:47)
[2023-08-31 08:00] VITALS: TEMP 98.7
[2023-08-31] MEDS: DULOXETINE 20 MG CAPSULE.DR GT SCH (09:51)
[2023-08-31] MEDS: FINASTERIDE 5 MG TABLET GT SCH (09:51)
[2023-08-31] MEDS: REMEDY ESSENTIAL ZINC PASTE 113 GM TP SCH ×2 (09:52→20:09)
[2023-08-31] MEDS: HYDROGEN PEROXIDE 3% 118 ML BOTTLE TP SCH ×2 (09:52→21:35)
[2023-08-31] MEDS: VITAMINS A AND D 5 GM UD PKT TP SCH (09:52)
[2023-08-31] MEDS: MULTIVIT, IRON, MIN NO. 8, FA TABLET GT SCH (20:09)
[2023-08-31] MEDS: ASCORBIC ACID 500 MG TABLET GT SCH (20:09)
[2023-08-31] MEDS: PROTEIN SUPPLEMENT (PROSTAT) 30 ML LIQUID GT SCH (20:09)
[2023-08-31 20:23] VITALS: TEMP 98.9
[2023-09-01] MEDS: SIMETHICONE 80 MG TAB.CHEW GT SCH ×4 (00:59→17:41)
[2023-09-01] MEDS: JEVITY 1.2 1000 ML LIQUID GT PRN ×2 (02:56→23:37)
[2023-09-01] MEDS: BACLOFEN 10 MG TABLET GT SCH ×3 (06:45→22:07)
[2023-09-01] MEDS: OMEPRAZOLE 20 MG CAPSULE.DR GT SCH (06:45)
[2023-09-01] MEDS: ACIDOPHILUS/BULGARICUS CHEW TAB GT SCH ×2 (06:45→17:41)
[2023-09-01] MEDS: NUTRISOURCE FIBER 4 GM PACKET GT SCH ×2 (06:45→17:41)
[2023-09-01 08:05] VITALS: TEMP 97.6
[2023-09-01] MEDS: DULOXETINE 20 MG CAPSULE.DR GT SCH (08:57)
[2023-09-01] MEDS: FINASTERIDE 5 MG TABLET GT SCH (08:57)
[2023-09-01] MEDS: HYDROGEN PEROXIDE 3% 118 ML BOTTLE TP SCH ×3 (08:58→20:56)
[2023-09-01] MEDS: REMEDY ESSENTIAL ZINC PASTE 113 GM TP SCH ×2 (08:58→21:00)
[2023-09-01] MEDS: VITAMINS A AND D 5 GM UD PKT TP SCH (08:59)
[2023-09-01] MEDS: HARRIS FLUSH ENEMA PR SCH (09:00)
[2023-09-01 19:47] VITALS: TEMP 98.8
[2023-09-01] MEDS: MULTIVIT, IRON, MIN NO. 8, FA TABLET GT SCH (21:00)
[2023-09-01] MEDS: PROTEIN SUPPLEMENT (PROSTAT) 30 ML LIQUID GT SCH (21:00)
[2023-09-01] MEDS: ASCORBIC ACID 500 MG TABLET GT SCH (21:00)
[2023-09-02] MEDS: SIMETHICONE 80 MG TAB.CHEW GT SCH ×4 (00:30→17:40)
[2023-09-02] MEDS: BACLOFEN 10 MG TABLET GT SCH ×3 (06:00→21:42)
[2023-09-02] MEDS: NUTRISOURCE FIBER 4 GM PACKET GT SCH ×2 (06:00→17:41)
[2023-09-02] MEDS: ACIDOPHILUS/BULGARICUS CHEW TAB GT SCH ×2 (06:00→17:40)
[2023-09-02] MEDS: OMEPRAZOLE 20 MG CAPSULE.DR GT SCH (06:00)
[2023-09-02] MEDS: FINASTERIDE 5 MG TABLET GT SCH (08:17)
[2023-09-02] MEDS: VITAMINS A AND D 5 GM UD PKT TP SCH (08:17)
[2023-09-02] MEDS: DULOXETINE 20 MG CAPSULE.DR GT SCH (08:17)
[2023-09-02] MEDS: REMEDY ESSENTIAL ZINC PASTE 113 GM TP SCH ×2 (08:17→20:22)
[2023-09-02] MEDS: HYDROGEN PEROXIDE 3% 118 ML BOTTLE TP SCH ×2 (09:00→19:10)
[2023-09-02 11:27] VITALS: TEMP 98.8
[2023-09-02 19:46] VITALS: TEMP 98.2
[2023-09-02] MEDS: PROTEIN SUPPLEMENT (PROSTAT) 30 ML LIQUID GT SCH (20:22)
[2023-09-02] MEDS: ASCORBIC ACID 500 MG TABLET GT SCH (20:22)
[2023-09-02] MEDS: MULTIVIT, IRON, MIN NO. 8, FA TABLET GT SCH (20:22)
[2023-09-02] MEDS: JEVITY 1.2 1000 ML LIQUID GT PRN (20:24)
[2023-09-03] MEDS: SIMETHICONE 80 MG TAB.CHEW GT SCH ×4 (00:18→18:43)
[2023-09-03] MEDS: ACIDOPHILUS/BULGARICUS CHEW TAB GT SCH ×2 (05:11→18:43)
[2023-09-03] MEDS: BACLOFEN 10 MG TABLET GT SCH ×3 (05:11→22:53)
[2023-09-03] MEDS: OMEPRAZOLE 20 MG CAPSULE.DR GT SCH (05:11)
[2023-09-03] MEDS: NUTRISOURCE FIBER 4 GM PACKET GT SCH ×2 (05:11→18:43)
[2023-09-03 08:00] VITALS: TEMP 98.2
[2023-09-03] MEDS: FINASTERIDE 5 MG TABLET GT SCH (08:51)
[2023-09-03] MEDS: REMEDY ESSENTIAL ZINC PASTE 113 GM TP SCH ×2 (08:51→21:00)
[2023-09-03] MEDS: VITAMINS A AND D 5 GM UD PKT TP SCH (08:51)
[2023-09-03] MEDS: DULOXETINE 20 MG CAPSULE.DR GT SCH (08:51)
[2023-09-03] MEDS: HYDROGEN PEROXIDE 3% 118 ML BOTTLE TP SCH ×2 (09:00→21:10)
[2023-09-03] MEDS: JEVITY 1.2 1000 ML LIQUID GT PRN (12:55)
[2023-09-03 20:23] VITALS: TEMP 97.4
[2023-09-03] MEDS: PROTEIN SUPPLEMENT (PROSTAT) 30 ML LIQUID GT SCH (21:00)
[2023-09-03] MEDS: MULTIVIT, IRON, MIN NO. 8, FA TABLET GT SCH (21:00)
[2023-09-03] MEDS: ASCORBIC ACID 500 MG TABLET GT SCH (21:00)
[2023-09-04] MEDS: SIMETHICONE 80 MG TAB.CHEW GT SCH ×4 (00:03→17:45)
[2023-09-04] MEDS: NUTRISOURCE FIBER 4 GM PACKET GT SCH ×2 (05:24→17:46)
[2023-09-04] MEDS: BACLOFEN 10 MG TABLET GT SCH ×3 (05:24→21:58)
[2023-09-04] MEDS: ACIDOPHILUS/BULGARICUS CHEW TAB GT SCH ×2 (05:24→17:45)
[2023-09-04] MEDS: OMEPRAZOLE 20 MG CAPSULE.DR GT SCH (05:24)
[2023-09-04] MEDS: DULOXETINE 20 MG CAPSULE.DR GT SCH (08:44)
[2023-09-04] MEDS: HARRIS FLUSH ENEMA PR SCH (08:45)
[2023-09-04] MEDS: VITAMINS A AND D 5 GM UD PKT TP SCH (08:45)
[2023-09-04] MEDS: FINASTERIDE 5 MG TABLET GT SCH (08:45)
[2023-09-04] MEDS: REMEDY ESSENTIAL ZINC PASTE 113 GM TP SCH ×2 (08:45→20:16)
[2023-09-04] MEDS: HYDROGEN PEROXIDE 3% 118 ML BOTTLE TP SCH ×2 (09:00→19:44)
[2023-09-04 09:13] VITALS: TEMP 98.9
[2023-09-04 20:10] VITALS: TEMP 98.3
[2023-09-04] MEDS: MULTIVIT, IRON, MIN NO. 8, FA TABLET GT SCH (20:14)
[2023-09-04] MEDS: PROTEIN SUPPLEMENT (PROSTAT) 30 ML LIQUID GT SCH (20:14)
[2023-09-04] MEDS: ASCORBIC ACID 500 MG TABLET GT SCH (20:16)
[2023-09-05] MEDS: JEVITY 1.2 1000 ML LIQUID GT PRN ×2 (01:10→23:25)
[2023-09-05] MEDS: NUTRISOURCE FIBER 4 GM PACKET GT SCH ×2 (06:12→17:44)
[2023-09-05] MEDS: ACIDOPHILUS/BULGARICUS CHEW TAB GT SCH ×2 (06:12→17:44)
[2023-09-05] MEDS: OMEPRAZOLE 20 MG CAPSULE.DR GT SCH (06:12)
[2023-09-05] MEDS: SIMETHICONE 80 MG TAB.CHEW GT SCH ×5 (06:12→23:24)
[2023-09-05] MEDS: BACLOFEN 10 MG TABLET GT SCH ×3 (06:12→21:49)
[2023-09-05] MEDS: HYDROGEN PEROXIDE 3% 118 ML BOTTLE TP SCH ×2 (07:17→19:15)
[2023-09-05 07:30] VITALS: TEMP 98
[2023-09-05] MEDS: DULOXETINE 20 MG CAPSULE.DR GT SCH (08:33)
[2023-09-05] MEDS: VITAMINS A AND D 5 GM UD PKT TP SCH (08:34)
[2023-09-05] MEDS: FINASTERIDE 5 MG TABLET GT SCH (08:34)
[2023-09-05] MEDS: REMEDY ESSENTIAL ZINC PASTE 113 GM TP SCH ×2 (08:34→20:18)
[2023-09-05 19:52] VITALS: TEMP 98.6
[2023-09-05] MEDS: PROTEIN SUPPLEMENT (PROSTAT) 30 ML LIQUID GT SCH (20:16)
[2023-09-05] MEDS: MULTIVIT, IRON, MIN NO. 8, FA TABLET GT SCH (20:16)
[2023-09-05] MEDS: ASCORBIC ACID 500 MG TABLET GT SCH (20:17)
[2023-09-05] MEDS: NEOMY/BACITRA/POLYMYXIN B OINT UD PACKET TP SCH (20:18)
[2023-09-06] MEDS: BACLOFEN 10 MG TABLET GT SCH ×3 (06:04→22:21)
[2023-09-06] MEDS: SIMETHICONE 80 MG TAB.CHEW GT SCH ×4 (06:04→23:33)
[2023-09-06] MEDS: ACIDOPHILUS/BULGARICUS CHEW TAB GT SCH ×2 (06:04→17:21)
[2023-09-06] MEDS: OMEPRAZOLE 20 MG CAPSULE.DR GT SCH (06:04)
[2023-09-06] MEDS: NUTRISOURCE FIBER 4 GM PACKET GT SCH ×2 (06:04→17:21)
[2023-09-06 07:56] VITALS: TEMP 98.8
[2023-09-06] MEDS: FINASTERIDE 5 MG TABLET GT SCH (09:41)
[2023-09-06] MEDS: HYDROGEN PEROXIDE 3% 118 ML BOTTLE TP SCH ×2 (09:41→21:10)
[2023-09-06] MEDS: NEOMY/BACITRA/POLYMYXIN B OINT UD PACKET TP SCH ×2 (09:41→21:00)
[2023-09-06] MEDS: DULOXETINE 20 MG CAPSULE.DR GT SCH (09:41)
[2023-09-06] MEDS: VITAMINS A AND D 5 GM UD PKT TP SCH (09:41)
[2023-09-06] MEDS: REMEDY ESSENTIAL ZINC PASTE 113 GM TP SCH ×2 (09:41→21:00)
[2023-09-06] MEDS: HARRIS FLUSH ENEMA PR SCH (14:43)
[2023-09-06] MEDS: JEVITY 1.2 1000 ML LIQUID GT PRN (16:31)
[2023-09-06 19:49] VITALS: TEMP 99.2
[2023-09-06] MEDS: MULTIVIT, IRON, MIN NO. 8, FA TABLET GT SCH (21:00)
[2023-09-06] MEDS: PROTEIN SUPPLEMENT (PROSTAT) 30 ML LIQUID GT SCH (21:00)
[2023-09-06] MEDS: ASCORBIC ACID 500 MG TABLET GT SCH (21:00)
[2023-09-07] MEDS: ACIDOPHILUS/BULGARICUS CHEW TAB GT SCH ×2 (05:29→17:58)
[2023-09-07] MEDS: BACLOFEN 10 MG TABLET GT SCH ×3 (05:29→21:00)
[2023-09-07] MEDS: SIMETHICONE 80 MG TAB.CHEW GT SCH ×3 (05:29→17:58)
[2023-09-07] MEDS: NUTRISOURCE FIBER 4 GM PACKET GT SCH ×2 (05:29→18:00)
[2023-09-07] MEDS: OMEPRAZOLE 20 MG CAPSULE.DR GT SCH (05:29)
[2023-09-07] MEDS: HYDROGEN PEROXIDE 3% 118 ML BOTTLE TP SCH ×2 (07:20→21:35)
[2023-09-07 07:45] VITALS: TEMP 98.8
[2023-09-07 08:19] LABS: BASOPHILS % (AUTO) 0.4 % (0.0-2.0); EOSINOPHILS # (AUTO) 0.3 K/uL (0.0-0.7); HEMATOCRIT 36.2 % (36.7-47.1); HEMOGLOBIN 11.9 g/dL (12.5-16.3); LYMPHOCYTES # (AUTO) 1.8 K/uL (0.8-4.8); LYMPHOCYTES % (AUTO) 23.4 % (20.5-51.5); MEAN CORPUSCULAR HEMOGLOBIN 28.4 uug (23.8-33.4); MEAN CORPUSCULAR HGB CONC 33 g/dL (32.5-36.3); MONOCYTES # (AUTO) 0.6 K/uL (0.1-1.30); MONOCYTES % (AUTO) 7.2 % (0.0-11.0); NEUTROPHILS # (AUTO) 5.1 K/uL (1.8-8.9); PLATELET COUNT (AUTO) 246 K/uL (152-348); RED BLOOD CELL COUNT(AUTO) 4.21 MIL/uL (4.06-5.63); RED CELL DISTRIBUTION WIDTH 14.5 % (12.1-16.2); WHITE BLOOD COUNT (AUTO) 7.9 K/uL (3.6-10.2)
[2023-09-07 08:37] LABS: CREATININE 0.7 mg/dL (0.6-1.3); MAGNESIUM 2.2 mg/dL (1.8-2.4); PHOSPHOROUS 3.6 mg/dL (2.5-4.9); POTASSIUM 4.5 mmol/L (3.5-5.1)
[2023-09-07 08:39] LABS: DIFFERENTIAL COMMENT 1
[2023-09-07] MEDS: REMEDY ESSENTIAL ZINC PASTE 113 GM TP SCH ×2 (09:00→21:00)
[2023-09-07] MEDS: FINASTERIDE 5 MG TABLET GT SCH (09:00)
[2023-09-07] MEDS: VITAMINS A AND D 5 GM UD PKT TP SCH (09:00)
[2023-09-07] MEDS: NEOMY/BACITRA/POLYMYXIN B OINT UD PACKET TP SCH ×2 (09:00→21:00)
[2023-09-07] MEDS: DULOXETINE 20 MG CAPSULE.DR GT SCH (09:00)
[2023-09-07] MEDS: PROTEIN SUPPLEMENT (PROSTAT) 30 ML LIQUID GT SCH (21:00)
[2023-09-07] MEDS: MULTIVIT, IRON, MIN NO. 8, FA TABLET GT SCH (21:00)
[2023-09-07] MEDS: ASCORBIC ACID 500 MG TABLET GT SCH (21:00)
[2023-09-07 22:31] VITALS: TEMP 99
[2023-09-08] MEDS: JEVITY 1.2 1000 ML LIQUID GT PRN (05:43)
[2023-09-08] MEDS: ACIDOPHILUS/BULGARICUS CHEW TAB GT SCH ×2 (05:59→18:10)
[2023-09-08] MEDS: BACLOFEN 10 MG TABLET GT SCH ×3 (06:00→22:48)
[2023-09-08] MEDS: NUTRISOURCE FIBER 4 GM PACKET GT SCH ×2 (06:00→18:10)
[2023-09-08] MEDS: SIMETHICONE 80 MG TAB.CHEW GT SCH ×4 (06:00→18:10)
[2023-09-08] MEDS: OMEPRAZOLE 20 MG CAPSULE.DR GT SCH (06:00)
[2023-09-08 07:47] VITALS: TEMP 98.9
[2023-09-08] MEDS: DULOXETINE 20 MG CAPSULE.DR GT SCH (09:13)
[2023-09-08] MEDS: HARRIS FLUSH ENEMA PR SCH (09:13)
[2023-09-08] MEDS: FINASTERIDE 5 MG TABLET GT SCH (09:13)
[2023-09-08] MEDS: VITAMINS A AND D 5 GM UD PKT TP SCH (09:14)
[2023-09-08] MEDS: REMEDY ESSENTIAL ZINC PASTE 113 GM TP SCH ×2 (09:14→20:04)
[2023-09-08] MEDS: NEOMY/BACITRA/POLYMYXIN B OINT UD PACKET TP SCH ×2 (09:14→20:04)
[2023-09-08] MEDS: HYDROGEN PEROXIDE 3% 118 ML BOTTLE TP SCH ×2 (09:18→21:00)
[2023-09-08 20:00] VITALS: TEMP 99.7
[2023-09-08] MEDS: ASCORBIC ACID 500 MG TABLET GT SCH (20:04)
[2023-09-08] MEDS: PROTEIN SUPPLEMENT (PROSTAT) 30 ML LIQUID GT SCH (20:04)
[2023-09-08] MEDS: MULTIVIT, IRON, MIN NO. 8, FA TABLET GT SCH (20:04)
[2023-09-09] MEDS: JEVITY 1.2 1000 ML LIQUID GT PRN (05:34)
[2023-09-09] MEDS: BACLOFEN 10 MG TABLET GT SCH ×3 (05:34→21:17)
[2023-09-09] MEDS: SIMETHICONE 80 MG TAB.CHEW GT SCH ×5 (05:34→23:07)
[2023-09-09] MEDS: ACIDOPHILUS/BULGARICUS CHEW TAB GT SCH ×2 (05:34→17:27)
[2023-09-09] MEDS: OMEPRAZOLE 20 MG CAPSULE.DR GT SCH (05:34)
[2023-09-09] MEDS: NUTRISOURCE FIBER 4 GM PACKET GT SCH ×2 (05:34→17:28)
[2023-09-09 07:42] VITALS: TEMP 98.9
[2023-09-09] MEDS: DULOXETINE 20 MG CAPSULE.DR GT SCH (08:36)
[2023-09-09] MEDS: NEOMY/BACITRA/POLYMYXIN B OINT UD PACKET TP SCH ×2 (08:37→20:35)
[2023-09-09] MEDS: REMEDY ESSENTIAL ZINC PASTE 113 GM TP SCH ×2 (08:37→20:35)
[2023-09-09] MEDS: VITAMINS A AND D 5 GM UD PKT TP SCH (08:37)
[2023-09-09] MEDS: FINASTERIDE 5 MG TABLET GT SCH (08:37)
[2023-09-09] MEDS: HYDROGEN PEROXIDE 3% 118 ML BOTTLE TP SCH ×2 (09:01→20:40)
[2023-09-09 19:48] VITALS: TEMP 98.8
[2023-09-09] MEDS: ASCORBIC ACID 500 MG TABLET GT SCH (20:35)
[2023-09-09] MEDS: MULTIVIT, IRON, MIN NO. 8, FA TABLET GT SCH (20:35)
[2023-09-09] MEDS: PROTEIN SUPPLEMENT (PROSTAT) 30 ML LIQUID GT SCH (20:35)
[2023-09-10] MEDS: BACLOFEN 10 MG TABLET GT SCH ×3 (05:15→22:06)
[2023-09-10] MEDS: ACIDOPHILUS/BULGARICUS CHEW TAB GT SCH ×2 (05:15→17:26)
[2023-09-10] MEDS: NUTRISOURCE FIBER 4 GM PACKET GT SCH ×2 (05:15→17:26)
[2023-09-10] MEDS: OMEPRAZOLE 20 MG CAPSULE.DR GT SCH (05:15)
[2023-09-10] MEDS: SIMETHICONE 80 MG TAB.CHEW GT SCH ×3 (05:15→17:26)
[2023-09-10 07:21] VITALS: TEMP 98.6
[2023-09-10] MEDS: REMEDY ESSENTIAL ZINC PASTE 113 GM TP SCH ×2 (09:00→20:34)
[2023-09-10] MEDS: FINASTERIDE 5 MG TABLET GT SCH (09:00)
[2023-09-10] MEDS: DULOXETINE 20 MG CAPSULE.DR GT SCH (09:00)
[2023-09-10] MEDS: NEOMY/BACITRA/POLYMYXIN B OINT UD PACKET TP SCH ×2 (09:00→20:35)
[2023-09-10] MEDS: VITAMINS A AND D 5 GM UD PKT TP SCH (09:00)
[2023-09-10] MEDS: HYDROGEN PEROXIDE 3% 118 ML BOTTLE TP SCH ×2 (09:12→21:38)
[2023-09-10] MEDS: JEVITY 1.2 1000 ML LIQUID GT PRN (11:44)
[2023-09-10] MEDS: MAGNESIUM HYDROXIDE 30 ML LIQUID UDC GT PRN (18:16)
[2023-09-10] MEDS: BISACODYL 10 MG SUPP.RECT RC PRN (18:34)
[2023-09-10 19:56] VITALS: TEMP 98.7
[2023-09-10] MEDS: MULTIVIT, IRON, MIN NO. 8, FA TABLET GT SCH (20:34)
[2023-09-10] MEDS: PROTEIN SUPPLEMENT (PROSTAT) 30 ML LIQUID GT SCH (20:34)
[2023-09-10] MEDS: ASCORBIC ACID 500 MG TABLET GT SCH (20:34)
[2023-09-11] MEDS: SIMETHICONE 80 MG TAB.CHEW GT SCH ×4 (00:18→17:42)
[2023-09-11] MEDS: OMEPRAZOLE 20 MG CAPSULE.DR GT SCH (06:13)
[2023-09-11] MEDS: BACLOFEN 10 MG TABLET GT SCH ×3 (06:13→22:47)
[2023-09-11] MEDS: ACIDOPHILUS/BULGARICUS CHEW TAB GT SCH ×2 (06:13→17:41)
[2023-09-11] MEDS: NUTRISOURCE FIBER 4 GM PACKET GT SCH ×2 (06:13→17:42)
[2023-09-11 07:19] VITALS: TEMP 98.5
[2023-09-11] MEDS: POVIDONE-IODINE WASH 236 ML BOTTLE TP SCH (08:30)
[2023-09-11] MEDS ORDERED: POVIDONE-IODINE WASH 236 ML BOTTLE TP PRN (08:30)
[2023-09-11] MEDS: REMEDY ESSENTIAL ZINC PASTE 113 GM TP SCH ×2 (09:00→20:41)
[2023-09-11] MEDS: DULOXETINE 20 MG CAPSULE.DR GT SCH (09:00)
[2023-09-11] MEDS: NEOMY/BACITRA/POLYMYXIN B OINT UD PACKET TP SCH ×2 (09:00→20:41)
[2023-09-11] MEDS: VITAMINS A AND D 5 GM UD PKT TP SCH (09:00)
[2023-09-11] MEDS: HARRIS FLUSH ENEMA PR SCH (09:00)
[2023-09-11] MEDS: FINASTERIDE 5 MG TABLET GT SCH (09:00)
[2023-09-11] MEDS: HYDROGEN PEROXIDE 3% 118 ML BOTTLE TP SCH ×2 (09:27→21:22)
[2023-09-11 19:50] VITALS: TEMP 98.5
[2023-09-11] MEDS: PROTEIN SUPPLEMENT (PROSTAT) 30 ML LIQUID GT SCH (20:40)
[2023-09-11] MEDS: MULTIVIT, IRON, MIN NO. 8, FA TABLET GT SCH (20:40)
[2023-09-11] MEDS: ASCORBIC ACID 500 MG TABLET GT SCH (20:41)
[2023-09-12] MEDS: SIMETHICONE 80 MG TAB.CHEW GT SCH ×4 (00:59→17:22)
[2023-09-12] MEDS: JEVITY 1.2 1000 ML LIQUID GT PRN ×2 (02:00→18:05)
[2023-09-12] MEDS: BACLOFEN 10 MG TABLET GT SCH ×3 (06:50→22:42)
[2023-09-12] MEDS: OMEPRAZOLE 20 MG CAPSULE.DR GT SCH (06:50)
[2023-09-12] MEDS: NUTRISOURCE FIBER 4 GM PACKET GT SCH ×2 (06:50→17:22)
[2023-09-12] MEDS: ACIDOPHILUS/BULGARICUS CHEW TAB GT SCH ×2 (06:50→17:22)
[2023-09-12 08:00] VITALS: TEMP 98.8
[2023-09-12] MEDS: HYDROGEN PEROXIDE 3% 118 ML BOTTLE TP SCH ×2 (09:31→20:53)
[2023-09-12] MEDS: REMEDY ESSENTIAL ZINC PASTE 113 GM TP SCH ×2 (09:31→21:00)
[2023-09-12] MEDS: FINASTERIDE 5 MG TABLET GT SCH (09:31)
[2023-09-12] MEDS: DULOXETINE 20 MG CAPSULE.DR GT SCH (09:31)
[2023-09-12] MEDS: VITAMINS A AND D 5 GM UD PKT TP SCH (09:32)
[2023-09-12] MEDS: NEOMY/BACITRA/POLYMYXIN B OINT UD PACKET TP SCH ×2 (09:32→21:00)
[2023-09-12] MEDS: MULTIVIT, IRON, MIN NO. 8, FA TABLET GT SCH (20:19)
[2023-09-12] MEDS: ASCORBIC ACID 500 MG TABLET GT SCH (20:21)
[2023-09-12] MEDS: PROTEIN SUPPLEMENT (PROSTAT) 30 ML LIQUID GT SCH (20:21)
[2023-09-12 20:35] VITALS: TEMP 98
[2023-09-13] MEDS: SIMETHICONE 80 MG TAB.CHEW GT SCH ×4 (00:17→17:03)
[2023-09-13] MEDS: OMEPRAZOLE 20 MG CAPSULE.DR GT SCH (06:19)
[2023-09-13] MEDS: NUTRISOURCE FIBER 4 GM PACKET GT SCH ×2 (06:19→17:03)
[2023-09-13] MEDS: BACLOFEN 10 MG TABLET GT SCH ×3 (06:19→21:21)
[2023-09-13] MEDS: ACIDOPHILUS/BULGARICUS CHEW TAB GT SCH ×2 (06:19→17:03)
[2023-09-13 08:00] VITALS: TEMP 98.6
[2023-09-13] MEDS: NEOMY/BACITRA/POLYMYXIN B OINT UD PACKET TP SCH ×2 (08:41→21:21)
[2023-09-13] MEDS: FINASTERIDE 5 MG TABLET GT SCH (08:41)
[2023-09-13] MEDS: REMEDY ESSENTIAL ZINC PASTE 113 GM TP SCH ×2 (08:41→21:21)
[2023-09-13] MEDS: POVIDONE-IODINE WASH 236 ML BOTTLE TP SCH (08:41)
[2023-09-13] MEDS: DULOXETINE 20 MG CAPSULE.DR GT SCH (08:41)
[2023-09-13] MEDS: HARRIS FLUSH ENEMA PR SCH (08:41)
[2023-09-13] MEDS: VITAMINS A AND D 5 GM UD PKT TP SCH (08:42)
[2023-09-13] MEDS: HYDROGEN PEROXIDE 3% 118 ML BOTTLE TP SCH ×2 (09:11→20:52)
[2023-09-13] MEDS: JEVITY 1.2 1000 ML LIQUID GT PRN (12:29)
[2023-09-13] MEDS: BISACODYL 10 MG SUPP.RECT RC PRN (16:26)
[2023-09-13] MEDS: MAGNESIUM HYDROXIDE 30 ML LIQUID UDC GT PRN (16:28)
[2023-09-13 20:00] VITALS: TEMP 97.5
[2023-09-13] MEDS: PROTEIN SUPPLEMENT (PROSTAT) 30 ML LIQUID GT SCH (21:21)
[2023-09-13] MEDS: ASCORBIC ACID 500 MG TABLET GT SCH (21:21)
[2023-09-13] MEDS: MULTIVIT, IRON, MIN NO. 8, FA TABLET GT SCH (21:21)
[2023-09-14] MEDS: SIMETHICONE 80 MG TAB.CHEW GT SCH ×4 (00:52→17:13)
[2023-09-14] MEDS: ACIDOPHILUS/BULGARICUS CHEW TAB GT SCH ×2 (06:36→17:13)
[2023-09-14] MEDS: BACLOFEN 10 MG TABLET GT SCH ×3 (06:36→20:58)
[2023-09-14] MEDS: JEVITY 1.2 1000 ML LIQUID GT PRN (06:36)
[2023-09-14] MEDS: OMEPRAZOLE 20 MG CAPSULE.DR GT SCH (06:36)
[2023-09-14] MEDS: NUTRISOURCE FIBER 4 GM PACKET GT SCH ×2 (06:36→17:13)
[2023-09-14 07:25] VITALS: O2SAT 98
[2023-09-14 08:00] VITALS: TEMP 99
[2023-09-14] MEDS: VITAMINS A AND D 5 GM UD PKT TP SCH (09:00)
[2023-09-14] MEDS: DULOXETINE 20 MG CAPSULE.DR GT SCH (09:00)
[2023-09-14] MEDS: FINASTERIDE 5 MG TABLET GT SCH (09:00)
[2023-09-14] MEDS: NEOMY/BACITRA/POLYMYXIN B OINT UD PACKET TP SCH ×2 (09:00→20:58)
[2023-09-14] MEDS: REMEDY ESSENTIAL ZINC PASTE 113 GM TP SCH ×2 (09:00→20:58)
[2023-09-14] MEDS: HYDROGEN PEROXIDE 3% 118 ML BOTTLE TP SCH ×2 (09:00→19:15)
[2023-09-14 20:00] VITALS: TEMP 97.5
[2023-09-14] MEDS: MULTIVIT, IRON, MIN NO. 8, FA TABLET GT SCH (20:58)
[2023-09-14] MEDS: ASCORBIC ACID 500 MG TABLET GT SCH (20:58)
[2023-09-14] MEDS: PROTEIN SUPPLEMENT (PROSTAT) 30 ML LIQUID GT SCH (20:58)
[2023-09-15] MEDS: SIMETHICONE 80 MG TAB.CHEW GT SCH ×4 (00:04→18:07)
[2023-09-15] MEDS: JEVITY 1.2 1000 ML LIQUID GT PRN (00:54)
[2023-09-15] MEDS: ACIDOPHILUS/BULGARICUS CHEW TAB GT SCH ×2 (06:04→18:07)
[2023-09-15] MEDS: NUTRISOURCE FIBER 4 GM PACKET GT SCH ×2 (06:05→18:07)
[2023-09-15] MEDS: BACLOFEN 10 MG TABLET GT SCH ×3 (06:05→22:47)
[2023-09-15] MEDS: OMEPRAZOLE 20 MG CAPSULE.DR GT SCH (06:05)
[2023-09-15 08:00] VITALS: TEMP 97.2
[2023-09-15] MEDS: HYDROGEN PEROXIDE 3% 118 ML BOTTLE TP SCH ×2 (08:40→19:11)
[2023-09-15] MEDS: REMEDY ESSENTIAL ZINC PASTE 113 GM TP SCH ×2 (08:41→20:40)
[2023-09-15] MEDS: POVIDONE-IODINE WASH 236 ML BOTTLE TP SCH (08:41)
[2023-09-15] MEDS: FINASTERIDE 5 MG TABLET GT SCH (08:41)
[2023-09-15] MEDS: NEOMY/BACITRA/POLYMYXIN B OINT UD PACKET TP SCH ×2 (08:41→20:41)
[2023-09-15] MEDS: DULOXETINE 20 MG CAPSULE.DR GT SCH (08:41)
[2023-09-15] MEDS: VITAMINS A AND D 5 GM UD PKT TP SCH (08:41)
[2023-09-15] MEDS: HARRIS FLUSH ENEMA PR SCH (08:41)
[2023-09-15 20:00] VITALS: TEMP 97.9
[2023-09-15] MEDS: MULTIVIT, IRON, MIN NO. 8, FA TABLET GT SCH (20:40)
[2023-09-15] MEDS: PROTEIN SUPPLEMENT (PROSTAT) 30 ML LIQUID GT SCH (20:40)
[2023-09-15] MEDS: ASCORBIC ACID 500 MG TABLET GT SCH (20:40)
[2023-09-16] MEDS: SIMETHICONE 80 MG TAB.CHEW GT SCH ×4 (00:51→17:09)
[2023-09-16] MEDS: BACLOFEN 10 MG TABLET GT SCH ×3 (06:35→21:56)
[2023-09-16] MEDS: NUTRISOURCE FIBER 4 GM PACKET GT SCH ×2 (06:35→17:09)
[2023-09-16] MEDS: ACIDOPHILUS/BULGARICUS CHEW TAB GT SCH ×2 (06:35→17:09)
[2023-09-16] MEDS: OMEPRAZOLE 20 MG CAPSULE.DR GT SCH (06:35)
[2023-09-16 07:30] VITALS: TEMP 98.3
[2023-09-16] MEDS: DULOXETINE 20 MG CAPSULE.DR GT SCH (08:38)
[2023-09-16] MEDS: REMEDY ESSENTIAL ZINC PASTE 113 GM TP SCH ×2 (08:38→21:54)
[2023-09-16] MEDS: FINASTERIDE 5 MG TABLET GT SCH (08:38)
[2023-09-16] MEDS: NEOMY/BACITRA/POLYMYXIN B OINT UD PACKET TP SCH ×2 (08:38→21:54)
[2023-09-16] MEDS: VITAMINS A AND D 5 GM UD PKT TP SCH (08:39)
[2023-09-16] MEDS: HYDROGEN PEROXIDE 3% 118 ML BOTTLE TP SCH ×2 (09:22→21:39)
[2023-09-16] MEDS: HARRIS FLUSH ENEMA PR PRN (16:23)
[2023-09-16 19:49] VITALS: TEMP 97.6
[2023-09-16] MEDS: MULTIVIT, IRON, MIN NO. 8, FA TABLET GT SCH (21:54)
[2023-09-16] MEDS: PROTEIN SUPPLEMENT (PROSTAT) 30 ML LIQUID GT SCH (21:54)
[2023-09-16] MEDS: ASCORBIC ACID 500 MG TABLET GT SCH (21:54)
[2023-09-17] MEDS: SIMETHICONE 80 MG TAB.CHEW GT SCH ×5 (00:13→23:21)
[2023-09-17] MEDS: BACLOFEN 10 MG TABLET GT SCH ×3 (05:27→22:00)
[2023-09-17] MEDS: NUTRISOURCE FIBER 4 GM PACKET GT SCH ×2 (05:27→17:15)
[2023-09-17] MEDS: ACIDOPHILUS/BULGARICUS CHEW TAB GT SCH ×2 (05:27→17:15)
[2023-09-17] MEDS: OMEPRAZOLE 20 MG CAPSULE.DR GT SCH (05:27)
[2023-09-17 07:32] VITALS: TEMP 98.2
[2023-09-17] MEDS: POVIDONE-IODINE WASH 236 ML BOTTLE TP SCH (08:54)
[2023-09-17] MEDS: FINASTERIDE 5 MG TABLET GT SCH (08:57)
[2023-09-17] MEDS: DULOXETINE 20 MG CAPSULE.DR GT SCH (08:57)
[2023-09-17] MEDS: NEOMY/BACITRA/POLYMYXIN B OINT UD PACKET TP SCH ×2 (08:57→20:31)
[2023-09-17] MEDS: REMEDY ESSENTIAL ZINC PASTE 113 GM TP SCH ×2 (08:57→20:31)
[2023-09-17] MEDS: VITAMINS A AND D 5 GM UD PKT TP SCH (08:58)
[2023-09-17] MEDS: HYDROGEN PEROXIDE 3% 118 ML BOTTLE TP SCH ×2 (09:09→20:31)
[2023-09-17] MEDS: JEVITY 1.2 1000 ML LIQUID GT PRN (11:33)
[2023-09-17 13:09] LABS: *CLARITY,URINE CLEAR (CLEAR)
[2023-09-17 13:10] LABS: *COLOR,URINE YELLOW (YELLOW)
[2023-09-17 13:12] LABS: *PROTEIN,URINE 2+ (NEGATIVE); UGLUCOSE NEGATIVE (NEGATIVE)
[2023-09-17 13:13] LABS: *BILIRUBIN,URIN NEGATIVE (NEGATIVE); *BLOOD, URINE 3+ (NEGATIVE); *KETONES,URINE NEGATIVE (NEGATIVE)
[2023-09-17 13:14] LABS: *UROBILINOGEN,URINE NORMAL (NORMAL); LEUKOCYTE ESTERASE ,URINE 3+ (NEGATIVE); NITRITE, URINE NEGATIVE (NEGATIVE)
[2023-09-17 13:32] LABS: BACTERIA,URINE MODERATE /HPF (NONE SEEN); RBC,URINE 20-50 /HPF (0-3)
[2023-09-17 19:49] VITALS: TEMP 98.8
[2023-09-17] MEDS: PROTEIN SUPPLEMENT (PROSTAT) 30 ML LIQUID GT SCH (20:31)
[2023-09-17] MEDS: ASCORBIC ACID 500 MG TABLET GT SCH (20:31)
[2023-09-17] MEDS: MULTIVIT, IRON, MIN NO. 8, FA TABLET GT SCH (20:31)
[2023-09-18] MEDS: JEVITY 1.2 1000 ML LIQUID GT PRN (03:29)
[2023-09-18] MEDS: NUTRISOURCE FIBER 4 GM PACKET GT SCH (06:08)
[2023-09-18] MEDS: ACIDOPHILUS/BULGARICUS CHEW TAB GT SCH ×2 (06:08→17:35)
[2023-09-18] MEDS: OMEPRAZOLE 20 MG CAPSULE.DR GT SCH (06:08)
[2023-09-18] MEDS: SIMETHICONE 80 MG TAB.CHEW GT SCH ×3 (06:08→17:35)
[2023-09-18] MEDS: BACLOFEN 10 MG TABLET GT SCH ×3 (06:08→21:36)
[2023-09-18 07:22] VITALS: TEMP 98.7
[2023-09-18] MEDS: HYDROGEN PEROXIDE 3% 118 ML BOTTLE TP SCH ×2 (08:27→20:32)
[2023-09-18] MEDS: VITAMINS A AND D 5 GM UD PKT TP SCH (09:56)
[2023-09-18] MEDS: HARRIS FLUSH ENEMA PR SCH (09:56)
[2023-09-18] MEDS: DULOXETINE 20 MG CAPSULE.DR GT SCH (09:56)
[2023-09-18] MEDS: REMEDY ESSENTIAL ZINC PASTE 113 GM TP SCH ×2 (09:56→20:32)
[2023-09-18] MEDS: FINASTERIDE 5 MG TABLET GT SCH (09:56)
[2023-09-18] MEDS: NEOMY/BACITRA/POLYMYXIN B OINT UD PACKET TP SCH ×2 (09:56→20:32)
[2023-09-18 19:48] VITALS: TEMP 98.5
[2023-09-18] MEDS: MULTIVIT, IRON, MIN NO. 8, FA TABLET GT SCH (20:31)
[2023-09-18] MEDS: ASCORBIC ACID 500 MG TABLET GT SCH (20:31)
[2023-09-18] MEDS: PROTEIN SUPPLEMENT (PROSTAT) 30 ML LIQUID GT SCH (20:31)
[2023-09-19] MEDS: SIMETHICONE 80 MG TAB.CHEW GT SCH ×4 (00:42→18:01)
[2023-09-19] MEDS: JEVITY 1.2 1000 ML LIQUID GT PRN ×2 (00:42→18:23)
[2023-09-19] MEDS: BACLOFEN 10 MG TABLET GT SCH ×3 (05:17→22:13)
[2023-09-19] MEDS: ACIDOPHILUS/BULGARICUS CHEW TAB GT SCH ×2 (05:17→18:01)
[2023-09-19] MEDS: OMEPRAZOLE 20 MG CAPSULE.DR GT SCH (05:18)
[2023-09-19 07:27] VITALS: TEMP 99.7
[2023-09-19] MEDS: DULOXETINE 20 MG CAPSULE.DR GT SCH (08:48)
[2023-09-19] MEDS: REMEDY ESSENTIAL ZINC PASTE 113 GM TP SCH ×2 (08:48→20:29)
[2023-09-19] MEDS: FINASTERIDE 5 MG TABLET GT SCH (08:48)
[2023-09-19] MEDS: POVIDONE-IODINE WASH 236 ML BOTTLE TP SCH (08:48)
[2023-09-19] MEDS: NEOMY/BACITRA/POLYMYXIN B OINT UD PACKET TP SCH (08:48)
[2023-09-19] MEDS: VITAMINS A AND D 5 GM UD PKT TP SCH (08:48)
[2023-09-19] MEDS: HYDROGEN PEROXIDE 3% 118 ML BOTTLE TP SCH ×2 (09:46→19:18)
[2023-09-19 19:52] VITALS: TEMP 98.5
[2023-09-19] MEDS: PROTEIN SUPPLEMENT (PROSTAT) 30 ML LIQUID GT SCH (20:18)
[2023-09-19] MEDS: MULTIVIT, IRON, MIN NO. 8, FA TABLET GT SCH (20:18)
[2023-09-19] MEDS: ASCORBIC ACID 500 MG TABLET GT SCH (20:18)
[2023-09-20] MEDS: SIMETHICONE 80 MG TAB.CHEW GT SCH ×4 (00:09→18:04)
[2023-09-20] MEDS: BACLOFEN 10 MG TABLET GT SCH ×3 (06:06→22:30)
[2023-09-20] MEDS: ACIDOPHILUS/BULGARICUS CHEW TAB GT SCH ×2 (06:06→18:04)
[2023-09-20] MEDS: OMEPRAZOLE 20 MG CAPSULE.DR GT SCH (06:06)
[2023-09-20 07:59] VITALS: TEMP 98.5
[2023-09-20] MEDS: VITAMINS A AND D 5 GM UD PKT TP SCH (09:00)
[2023-09-20] MEDS: HARRIS FLUSH ENEMA PR SCH (09:00)
[2023-09-20] MEDS: REMEDY ESSENTIAL ZINC PASTE 113 GM TP SCH ×2 (09:00→21:33)
[2023-09-20] MEDS: FINASTERIDE 5 MG TABLET GT SCH (09:00)
[2023-09-20] MEDS: DULOXETINE 20 MG CAPSULE.DR GT SCH (09:00)
[2023-09-20] MEDS: HYDROGEN PEROXIDE 3% 118 ML BOTTLE TP SCH ×2 (09:31→19:06)
[2023-09-20 20:00] VITALS: TEMP 97.5
[2023-09-20] MEDS: PROTEIN SUPPLEMENT (PROSTAT) 30 ML LIQUID GT SCH (21:33)
[2023-09-20] MEDS: ASCORBIC ACID 500 MG TABLET GT SCH (21:33)
[2023-09-20] MEDS: MULTIVIT, IRON, MIN NO. 8, FA TABLET GT SCH (21:33)
[2023-09-21] MEDS: SIMETHICONE 80 MG TAB.CHEW GT SCH ×4 (00:05→17:16)
[2023-09-21] MEDS: JEVITY 1.2 1000 ML LIQUID GT PRN (03:28)
[2023-09-21] MEDS: BACLOFEN 10 MG TABLET GT SCH ×3 (06:01→22:26)
[2023-09-21] MEDS: OMEPRAZOLE 20 MG CAPSULE.DR GT SCH (06:01)
[2023-09-21] MEDS: ACIDOPHILUS/BULGARICUS CHEW TAB GT SCH ×2 (06:01→17:15)
[2023-09-21 07:30] VITALS: TEMP 98.9
[2023-09-21] MEDS: VITAMINS A AND D 5 GM UD PKT TP SCH (08:50)
[2023-09-21] MEDS: REMEDY ESSENTIAL ZINC PASTE 113 GM TP SCH ×2 (08:50→20:17)
[2023-09-21] MEDS: DULOXETINE 20 MG CAPSULE.DR GT SCH (08:50)
[2023-09-21] MEDS: POVIDONE-IODINE WASH 236 ML BOTTLE TP SCH (08:50)
[2023-09-21] MEDS: FINASTERIDE 5 MG TABLET GT SCH (08:50)
[2023-09-21] MEDS: HYDROGEN PEROXIDE 3% 118 ML BOTTLE TP SCH ×2 (09:34→19:25)
[2023-09-21 20:04] VITALS: TEMP 97.4
[2023-09-21] MEDS: PROTEIN SUPPLEMENT (PROSTAT) 30 ML LIQUID GT SCH (20:16)
[2023-09-21] MEDS: ASCORBIC ACID 500 MG TABLET GT SCH (20:17)
[2023-09-21] MEDS: MULTIVIT, IRON, MIN NO. 8, FA TABLET GT SCH (20:17)
[2023-09-22] MEDS: SIMETHICONE 80 MG TAB.CHEW GT SCH ×4 (00:48→17:09)
[2023-09-22] MEDS: JEVITY 1.2 1000 ML LIQUID GT PRN ×2 (00:49→15:16)
[2023-09-22] MEDS: OMEPRAZOLE 20 MG CAPSULE.DR GT SCH (06:16)
[2023-09-22] MEDS: ACIDOPHILUS/BULGARICUS CHEW TAB GT SCH ×2 (06:16→17:09)
[2023-09-22] MEDS: BACLOFEN 10 MG TABLET GT SCH ×3 (06:16→22:14)
[2023-09-22] MEDS: FINASTERIDE 5 MG TABLET GT SCH (08:43)
[2023-09-22] MEDS: DULOXETINE 20 MG CAPSULE.DR GT SCH (08:43)
[2023-09-22] MEDS: HARRIS FLUSH ENEMA PR SCH (08:43)
[2023-09-22] MEDS: REMEDY ESSENTIAL ZINC PASTE 113 GM TP SCH ×2 (08:44→20:25)
[2023-09-22] MEDS: VITAMINS A AND D 5 GM UD PKT TP SCH (08:44)
[2023-09-22] MEDS: HYDROGEN PEROXIDE 3% 118 ML BOTTLE TP SCH ×2 (09:00→21:26)
[2023-09-22 12:34] VITALS: TEMP 99.9
[2023-09-22 20:00] VITALS: TEMP 98
[2023-09-22] MEDS: ASCORBIC ACID 500 MG TABLET GT SCH (20:25)
[2023-09-22] MEDS: PROTEIN SUPPLEMENT (PROSTAT) 30 ML LIQUID GT SCH (20:25)
[2023-09-22] MEDS: MULTIVIT, IRON, MIN NO. 8, FA TABLET GT SCH (20:25)
[2023-09-22] MEDS: POLYVINYL ALCOHOL OPHT DROPS 15 ML BOTTLE EACHEYE PRN (20:26)
[2023-09-23] MEDS: SIMETHICONE 80 MG TAB.CHEW GT SCH ×5 (00:52→23:39)
[2023-09-23] MEDS: OMEPRAZOLE 20 MG CAPSULE.DR GT SCH (06:29)
[2023-09-23] MEDS: ACIDOPHILUS/BULGARICUS CHEW TAB GT SCH ×2 (06:29→17:38)
[2023-09-23] MEDS: BACLOFEN 10 MG TABLET GT SCH ×3 (06:29→22:11)
[2023-09-23 07:43] VITALS: TEMP 100.6
[2023-09-23] MEDS: VITAMINS A AND D 5 GM UD PKT TP SCH (08:05)
[2023-09-23] MEDS: FINASTERIDE 5 MG TABLET GT SCH (08:05)
[2023-09-23] MEDS: REMEDY ESSENTIAL ZINC PASTE 113 GM TP SCH ×2 (08:05→20:43)
[2023-09-23] MEDS: DULOXETINE 20 MG CAPSULE.DR GT SCH (08:05)
[2023-09-23] MEDS: POVIDONE-IODINE WASH 236 ML BOTTLE TP SCH (08:05)
[2023-09-23] MEDS: JEVITY 1.2 1000 ML LIQUID GT PRN ×2 (08:06→23:39)
[2023-09-23] MEDS: HYDROGEN PEROXIDE 3% 118 ML BOTTLE TP SCH ×2 (09:47→19:04)
[2023-09-23] MEDS ORDERED: DEXTROSE 5% IV ONE ×2 (18:00→22:00)
[2023-09-23] MEDS ORDERED: GENTAMICIN SULFATE IV ONE ×2 (18:00→22:00)
[2023-09-23] MEDS: CEFEPIME HCL 1 G in IV DEXTROSE 5% 50 ML IV SCH (18:32)
[2023-09-23 20:03] VITALS: TEMP 98.6
[2023-09-23] MEDS: PROTEIN SUPPLEMENT (PROSTAT) 30 ML LIQUID GT SCH (20:42)
[2023-09-23] MEDS: MULTIVIT, IRON, MIN NO. 8, FA TABLET GT SCH (20:42)
[2023-09-23] MEDS: ASCORBIC ACID 500 MG TABLET GT SCH (20:43)
[2023-09-24] MEDS: OMEPRAZOLE 20 MG CAPSULE.DR GT SCH (05:15)
[2023-09-24] MEDS: ACIDOPHILUS/BULGARICUS CHEW TAB GT SCH ×2 (05:15→17:36)
[2023-09-24] MEDS: BACLOFEN 10 MG TABLET GT SCH ×3 (05:15→22:07)
[2023-09-24] MEDS: SIMETHICONE 80 MG TAB.CHEW GT SCH ×3 (05:15→17:36)
[2023-09-24] MEDS: CEFEPIME HCL 1 G in IV DEXTROSE 5% 50 ML IV SCH ×2 (05:38→19:18)
[2023-09-24 07:16] LABS: BASOPHILS % (AUTO) 0.3 % (0.0-2.0); EOSINOPHILS # (AUTO) 0.1 K/uL (0.0-0.7); EOSINOPHILS % (AUTO) 2.3 % (0.0-7.0); HEMATOCRIT 36.5 % (36.7-47.1); HEMOGLOBIN 12.2 g/dL (12.5-16.3); LYMPHOCYTES # (AUTO) 1.4 K/uL (0.8-4.8); LYMPHOCYTES % (AUTO) 22.5 % (20.5-51.5); MEAN CORPUSCULAR HEMOGLOBIN 28.6 uug (23.8-33.4); MEAN CORPUSCULAR HGB CONC 33 g/dL (32.5-36.3); MEAN CORPUSCULAR VOLUME 85.8 fL (73.0-96.2); MONOCYTES # (AUTO) 0.6 K/uL (0.1-1.30); MONOCYTES % (AUTO) 9.6 % (0.0-11.0); NEUTROPHILS # (AUTO) 3.9 K/uL (1.8-8.9); NEUTROPHILS % (AUTO) 65.3 % (38.5-71.5); PLATELET COUNT (AUTO) 193 K/uL (152-348); RED BLOOD CELL COUNT(AUTO) 4.25 MIL/uL (4.06-5.63); RED CELL DISTRIBUTION WIDTH 14.6 % (12.1-16.2)
[2023-09-24 07:26] VITALS: TEMP 98.7
[2023-09-24 07:37] LABS: DIFFERENTIAL COMMENT 1
[2023-09-24 07:46] LABS: ALBUMIN 2.4 g/dL (3.4-5.0); BILIRUBIN,TOTAL 0.3 mg/dL (0.2-1.0); CALCIUM 8.9 mg/dL (8.5-10.1); CREATININE 0.8 mg/dL (0.6-1.3); POTASSIUM 4.4 mmol/L (3.5-5.1)
[2023-09-24] MEDS: HYDROGEN PEROXIDE 3% 118 ML BOTTLE TP SCH ×2 (08:33→20:52)
[2023-09-24] MEDS: DULOXETINE 20 MG CAPSULE.DR GT SCH (09:14)
[2023-09-24] MEDS: FINASTERIDE 5 MG TABLET GT SCH (09:15)
[2023-09-24] MEDS: REMEDY ESSENTIAL ZINC PASTE 113 GM TP SCH ×2 (09:15→20:22)
[2023-09-24] MEDS: VITAMINS A AND D 5 GM UD PKT TP SCH (09:15)
[2023-09-24] MEDS: JEVITY 1.2 1000 ML LIQUID GT PRN (15:08)
[2023-09-24 19:53] VITALS: TEMP 98.8
[2023-09-24] MEDS: PROTEIN SUPPLEMENT (PROSTAT) 30 ML LIQUID GT SCH (20:19)
[2023-09-24] MEDS: MULTIVIT, IRON, MIN NO. 8, FA TABLET GT SCH (20:20)
[2023-09-24] MEDS: ASCORBIC ACID 500 MG TABLET GT SCH (20:22)
[2023-09-25] MEDS: SIMETHICONE 80 MG TAB.CHEW GT SCH ×4 (00:43→18:01)
[2023-09-25] MEDS: BACLOFEN 10 MG TABLET GT SCH ×3 (06:26→21:52)
[2023-09-25] MEDS: ACIDOPHILUS/BULGARICUS CHEW TAB GT SCH ×2 (06:26→18:01)
[2023-09-25] MEDS: OMEPRAZOLE 20 MG CAPSULE.DR GT SCH (06:26)
[2023-09-25 07:21] VITALS: TEMP 99
[2023-09-25] MEDS: POVIDONE-IODINE WASH 236 ML BOTTLE TP SCH (08:30)
[2023-09-25] MEDS: HARRIS FLUSH ENEMA PR SCH (09:00)
[2023-09-25] MEDS: DULOXETINE 20 MG CAPSULE.DR GT SCH (09:32)
[2023-09-25] MEDS: VITAMINS A AND D 5 GM UD PKT TP SCH (09:33)
[2023-09-25] MEDS: REMEDY ESSENTIAL ZINC PASTE 113 GM TP SCH ×2 (09:33→21:52)
[2023-09-25] MEDS: FINASTERIDE 5 MG TABLET GT SCH (09:33)
[2023-09-25] MEDS: HYDROGEN PEROXIDE 3% 118 ML BOTTLE TP SCH ×2 (09:38→20:47)
[2023-09-25] MEDS: JEVITY 1.2 1000 ML LIQUID GT PRN (11:54)
[2023-09-25] MEDS ORDERED: CIPROFLOXACIN HCL 250 MG TABLET PO SCH (11:57)
[2023-09-25 19:55] VITALS: TEMP 97.5
[2023-09-25] MEDS: CEFEPIME HCL 1 G in IV DEXTROSE 5% 50 ML IV SCH (20:25)
[2023-09-25] MEDS: PROTEIN SUPPLEMENT (PROSTAT) 30 ML LIQUID GT SCH (21:50)
[2023-09-25] MEDS: MULTIVIT, IRON, MIN NO. 8, FA TABLET GT SCH (21:52)
[2023-09-25] MEDS: ASCORBIC ACID 500 MG TABLET GT SCH (21:52)
[2023-09-26] MEDS: SIMETHICONE 80 MG TAB.CHEW GT SCH ×5 (06:07→23:42)
[2023-09-26] MEDS: OMEPRAZOLE 20 MG CAPSULE.DR GT SCH (06:07)
[2023-09-26] MEDS: BACLOFEN 10 MG TABLET GT SCH ×3 (06:07→22:26)
[2023-09-26] MEDS: ACIDOPHILUS/BULGARICUS CHEW TAB GT SCH ×2 (06:07→17:08)
[2023-09-26] MEDS: JEVITY 1.2 1000 ML LIQUID GT PRN ×2 (06:30→18:37)
[2023-09-26] MEDS: CEFEPIME HCL 1 G in IV DEXTROSE 5% 50 ML IV SCH ×2 (08:00→20:22)
[2023-09-26] MEDS: HYDROGEN PEROXIDE 3% 118 ML BOTTLE TP SCH ×2 (09:00→19:09)
[2023-09-26] MEDS: VITAMINS A AND D 5 GM UD PKT TP SCH (09:50)
[2023-09-26] MEDS: DULOXETINE 20 MG CAPSULE.DR GT SCH (09:50)
[2023-09-26] MEDS: REMEDY ESSENTIAL ZINC PASTE 113 GM TP SCH ×2 (09:50→20:31)
[2023-09-26] MEDS: FINASTERIDE 5 MG TABLET GT SCH (09:50)
[2023-09-26 10:45] VITALS: TEMP 97.8
[2023-09-26 19:48] VITALS: TEMP 99
[2023-09-26] MEDS: MULTIVIT, IRON, MIN NO. 8, FA TABLET GT SCH (20:30)
[2023-09-26] MEDS: PROTEIN SUPPLEMENT (PROSTAT) 30 ML LIQUID GT SCH (20:30)
[2023-09-26] MEDS: ASCORBIC ACID 500 MG TABLET GT SCH (20:31)
[2023-09-27] MEDS: ACIDOPHILUS/BULGARICUS CHEW TAB GT SCH ×2 (05:19→17:11)
[2023-09-27] MEDS: SIMETHICONE 80 MG TAB.CHEW GT SCH ×3 (05:19→17:11)
[2023-09-27] MEDS: OMEPRAZOLE 20 MG CAPSULE.DR GT SCH (05:19)
[2023-09-27] MEDS: BACLOFEN 10 MG TABLET GT SCH ×3 (05:19→21:04)
[2023-09-27 07:43] VITALS: TEMP 98.5
[2023-09-27] MEDS: CEFEPIME HCL 1 G in IV DEXTROSE 5% 50 ML IV SCH ×2 (08:58→20:03)
[2023-09-27] MEDS: HYDROGEN PEROXIDE 3% 118 ML BOTTLE TP SCH ×2 (09:00→21:56)
[2023-09-27] MEDS: POVIDONE-IODINE WASH 236 ML BOTTLE TP SCH (09:12)
[2023-09-27] MEDS: DULOXETINE 20 MG CAPSULE.DR GT SCH (09:12)
[2023-09-27] MEDS: VITAMINS A AND D 5 GM UD PKT TP SCH (09:13)
[2023-09-27] MEDS: REMEDY ESSENTIAL ZINC PASTE 113 GM TP SCH ×2 (09:13→21:04)
[2023-09-27] MEDS: FINASTERIDE 5 MG TABLET GT SCH (09:13)
[2023-09-27] MEDS: HARRIS FLUSH ENEMA PR SCH (09:59)
[2023-09-27] MEDS: JEVITY 1.2 1000 ML LIQUID GT PRN (12:35)
[2023-09-27 19:51] VITALS: TEMP 99.2
[2023-09-27] MEDS: PROTEIN SUPPLEMENT (PROSTAT) 30 ML LIQUID GT SCH (21:03)
[2023-09-27] MEDS: MULTIVIT, IRON, MIN NO. 8, FA TABLET GT SCH (21:03)
[2023-09-27] MEDS: ASCORBIC ACID 500 MG TABLET GT SCH (21:03)
[2023-09-27] MEDS: ACETAMINOPHEN 650 MG/20 ML UDC- SA PATIENTS-PAIN ONLY GT PRN (21:08)
[2023-09-28] MEDS: SIMETHICONE 80 MG TAB.CHEW GT SCH ×5 (00:42→23:59)
[2023-09-28] MEDS: HARRIS FLUSH ENEMA PR PRN (03:00)
[2023-09-28] MEDS: OMEPRAZOLE 20 MG CAPSULE.DR GT SCH (05:14)
[2023-09-28] MEDS: ACIDOPHILUS/BULGARICUS CHEW TAB GT SCH ×2 (05:14→18:02)
[2023-09-28] MEDS: BACLOFEN 10 MG TABLET GT SCH ×3 (05:14→21:30)
[2023-09-28] MEDS: JEVITY 1.2 1000 ML LIQUID GT PRN (06:22)
[2023-09-28 07:30] VITALS: TEMP 98.4
[2023-09-28] MEDS: CEFEPIME HCL 1 G in IV DEXTROSE 5% 50 ML IV SCH ×2 (08:00→20:00)
[2023-09-28] MEDS: HYDROGEN PEROXIDE 3% 118 ML BOTTLE TP SCH ×2 (09:16→19:34)
[2023-09-28] MEDS: FINASTERIDE 5 MG TABLET GT SCH (09:25)
[2023-09-28] MEDS: REMEDY ESSENTIAL ZINC PASTE 113 GM TP SCH ×2 (09:25→21:30)
[2023-09-28] MEDS: DULOXETINE 20 MG CAPSULE.DR GT SCH (09:25)
[2023-09-28] MEDS: VITAMINS A AND D 5 GM UD PKT TP SCH (09:25)
[2023-09-28 20:35] VITALS: TEMP 98.6
[2023-09-28] MEDS: PROTEIN SUPPLEMENT (PROSTAT) 30 ML LIQUID GT SCH (21:29)
[2023-09-28] MEDS: ASCORBIC ACID 500 MG TABLET GT SCH (21:30)
[2023-09-28] MEDS: MULTIVIT, IRON, MIN NO. 8, FA TABLET GT SCH (21:30)
[2023-09-29] MEDS: BACLOFEN 10 MG TABLET GT SCH ×3 (05:19→22:00)
[2023-09-29] MEDS: OMEPRAZOLE 20 MG CAPSULE.DR GT SCH (05:19)
[2023-09-29] MEDS: SIMETHICONE 80 MG TAB.CHEW GT SCH ×4 (05:19→23:42)
[2023-09-29] MEDS: ACIDOPHILUS/BULGARICUS CHEW TAB GT SCH ×2 (05:19→18:52)
[2023-09-29 08:00] VITALS: TEMP 97.1
[2023-09-29] MEDS: CEFEPIME HCL 1 G in IV DEXTROSE 5% 50 ML IV SCH ×2 (08:00→20:00)
[2023-09-29] MEDS: POVIDONE-IODINE WASH 236 ML BOTTLE TP SCH (09:28)
[2023-09-29] MEDS: DULOXETINE 20 MG CAPSULE.DR GT SCH (09:29)
[2023-09-29] MEDS: FINASTERIDE 5 MG TABLET GT SCH (09:30)
[2023-09-29] MEDS: VITAMINS A AND D 5 GM UD PKT TP SCH (09:31)
[2023-09-29] MEDS: REMEDY ESSENTIAL ZINC PASTE 113 GM TP SCH ×2 (09:31→21:00)
[2023-09-29] MEDS: HARRIS FLUSH ENEMA PR SCH (09:31)
[2023-09-29] MEDS: HYDROGEN PEROXIDE 3% 118 ML BOTTLE TP SCH ×2 (09:31→21:00)
[2023-09-29] MEDS: ACETAMINOPHEN 650 MG/20 ML UDC- SA PATIENTS-PAIN ONLY GT PRN (11:00)
[2023-09-29] MEDS: JEVITY 1.2 1000 ML LIQUID GT PRN (11:27)
[2023-09-29 20:00] VITALS: TEMP 97.5
[2023-09-29] MEDS: MULTIVIT, IRON, MIN NO. 8, FA TABLET GT SCH (21:00)
[2023-09-29] MEDS: PROTEIN SUPPLEMENT (PROSTAT) 30 ML LIQUID GT SCH (21:00)
[2023-09-29] MEDS: ASCORBIC ACID 500 MG TABLET GT SCH (21:00)
[2023-09-30] MEDS: BACLOFEN 10 MG TABLET GT SCH ×3 (06:13→21:21)
[2023-09-30] MEDS: OMEPRAZOLE 20 MG CAPSULE.DR GT SCH (06:13)
[2023-09-30] MEDS: ACIDOPHILUS/BULGARICUS CHEW TAB GT SCH ×2 (06:13→18:14)
[2023-09-30] MEDS: SIMETHICONE 80 MG TAB.CHEW GT SCH ×3 (06:13→18:14)
[2023-09-30] MEDS: JEVITY 1.2 1000 ML LIQUID GT PRN (07:25)
[2023-09-30 08:00] VITALS: TEMP 97.8
[2023-09-30] MEDS: CEFEPIME HCL 1 G in IV DEXTROSE 5% 50 ML IV SCH ×2 (08:39→20:00)
[2023-09-30] MEDS: DULOXETINE 20 MG CAPSULE.DR GT SCH (09:28)
[2023-09-30] MEDS: VITAMINS A AND D 5 GM UD PKT TP SCH (09:29)
[2023-09-30] MEDS: FINASTERIDE 5 MG TABLET GT SCH (09:29)
[2023-09-30] MEDS: REMEDY ESSENTIAL ZINC PASTE 113 GM TP SCH ×2 (09:29→21:21)
[2023-09-30] MEDS: HYDROGEN PEROXIDE 3% 118 ML BOTTLE TP SCH ×2 (09:59→19:09)
[2023-09-30 20:29] VITALS: TEMP 97.5
[2023-09-30] MEDS: PROTEIN SUPPLEMENT (PROSTAT) 30 ML LIQUID GT SCH (21:21)
[2023-09-30] MEDS: MULTIVIT, IRON, MIN NO. 8, FA TABLET GT SCH (21:21)
[2023-09-30] MEDS: ASCORBIC ACID 500 MG TABLET GT SCH (21:21)
[2023-10-01] MEDS: SIMETHICONE 80 MG TAB.CHEW GT SCH ×4 (00:35→17:11)
[2023-10-01] MEDS: OMEPRAZOLE 20 MG CAPSULE.DR GT SCH (06:41)
[2023-10-01] MEDS: BACLOFEN 10 MG TABLET GT SCH ×3 (06:41→21:16)
[2023-10-01] MEDS: ACIDOPHILUS/BULGARICUS CHEW TAB GT SCH ×2 (06:41→17:11)
[2023-10-01 08:00] VITALS: TEMP 97.6
[2023-10-01] MEDS: HYDROGEN PEROXIDE 3% 118 ML BOTTLE TP SCH ×2 (09:20→19:11)
[2023-10-01] MEDS: VITAMINS A AND D 5 GM UD PKT TP SCH (09:25)
[2023-10-01] MEDS: POVIDONE-IODINE WASH 236 ML BOTTLE TP SCH (09:25)
[2023-10-01] MEDS: DULOXETINE 20 MG CAPSULE.DR GT SCH (09:25)
[2023-10-01] MEDS: REMEDY ESSENTIAL ZINC PASTE 113 GM TP SCH ×2 (09:25→21:16)
[2023-10-01] MEDS: FINASTERIDE 5 MG TABLET GT SCH (09:25)
[2023-10-01 20:05] VITALS: TEMP 97.7
[2023-10-01] MEDS: PROTEIN SUPPLEMENT (PROSTAT) 30 ML LIQUID GT SCH (21:14)
[2023-10-01] MEDS: MULTIVIT, IRON, MIN NO. 8, FA TABLET GT SCH (21:15)
[2023-10-01] MEDS: ASCORBIC ACID 500 MG TABLET GT SCH (21:16)
[2023-10-02] MEDS: HARRIS FLUSH ENEMA PR PRN (04:00)
[2023-10-02] MEDS: BACLOFEN 10 MG TABLET GT SCH ×3 (06:26→21:07)
[2023-10-02] MEDS: SIMETHICONE 80 MG TAB.CHEW GT SCH ×4 (06:26→17:09)
[2023-10-02] MEDS: ACIDOPHILUS/BULGARICUS CHEW TAB GT SCH ×2 (06:26→17:09)
[2023-10-02] MEDS: OMEPRAZOLE 20 MG CAPSULE.DR GT SCH (06:26)
[2023-10-02] MEDS: JEVITY 1.2 1000 ML LIQUID GT PRN (06:45)
[2023-10-02 08:00] VITALS: TEMP 97.7
[2023-10-02] MEDS: HARRIS FLUSH ENEMA PR SCH (08:40)
[2023-10-02] MEDS: DULOXETINE 20 MG CAPSULE.DR GT SCH (08:40)
[2023-10-02] MEDS: FINASTERIDE 5 MG TABLET GT SCH (08:40)
[2023-10-02] MEDS: VITAMINS A AND D 5 GM UD PKT TP SCH (08:41)
[2023-10-02] MEDS: REMEDY ESSENTIAL ZINC PASTE 113 GM TP SCH ×2 (08:41→21:07)
[2023-10-02] MEDS: HYDROGEN PEROXIDE 3% 118 ML BOTTLE TP SCH ×2 (09:00→21:12)
[2023-10-02 19:37] VITALS: TEMP 98
[2023-10-02] MEDS: MULTIVIT, IRON, MIN NO. 8, FA TABLET GT SCH (21:05)
[2023-10-02] MEDS: PROTEIN SUPPLEMENT (PROSTAT) 30 ML LIQUID GT SCH (21:05)
[2023-10-02] MEDS: ASCORBIC ACID 500 MG TABLET GT SCH (21:06)
[2023-10-03] MEDS: JEVITY 1.2 1000 ML LIQUID GT PRN (00:30)
[2023-10-03] MEDS: SIMETHICONE 80 MG TAB.CHEW GT SCH ×4 (00:31→17:29)
[2023-10-03] MEDS: OMEPRAZOLE 20 MG CAPSULE.DR GT SCH (05:40)
[2023-10-03] MEDS: BACLOFEN 10 MG TABLET GT SCH ×3 (05:40→22:01)
[2023-10-03] MEDS: ACIDOPHILUS/BULGARICUS CHEW TAB GT SCH ×2 (05:40→17:29)
[2023-10-03 07:29] VITALS: TEMP 97.2
[2023-10-03] MEDS: FINASTERIDE 5 MG TABLET GT SCH (09:08)
[2023-10-03] MEDS: DULOXETINE 20 MG CAPSULE.DR GT SCH (09:08)
[2023-10-03] MEDS: VITAMINS A AND D 5 GM UD PKT TP SCH (09:08)
[2023-10-03] MEDS: REMEDY ESSENTIAL ZINC PASTE 113 GM TP SCH ×2 (09:08→20:20)
[2023-10-03] MEDS: HYDROGEN PEROXIDE 3% 118 ML BOTTLE TP SCH ×2 (09:51→20:43)
[2023-10-03 19:50] VITALS: TEMP 98.4
[2023-10-03] MEDS: MULTIVIT, IRON, MIN NO. 8, FA TABLET GT SCH (20:19)
[2023-10-03] MEDS: PROTEIN SUPPLEMENT (PROSTAT) 30 ML LIQUID GT SCH (20:19)
[2023-10-03] MEDS: ASCORBIC ACID 500 MG TABLET GT SCH (20:20)
[2023-10-04] MEDS: ACIDOPHILUS/BULGARICUS CHEW TAB GT SCH ×2 (06:49→17:53)
[2023-10-04] MEDS: JEVITY 1.2 1000 ML LIQUID GT PRN ×2 (06:49→13:37)
[2023-10-04] MEDS: OMEPRAZOLE 20 MG CAPSULE.DR GT SCH (06:49)
[2023-10-04] MEDS: BACLOFEN 10 MG TABLET GT SCH ×3 (06:49→21:05)
[2023-10-04] MEDS: SIMETHICONE 80 MG TAB.CHEW GT SCH ×4 (06:49→17:53)
[2023-10-04 07:50] VITALS: TEMP 98.7
[2023-10-04] MEDS: HYDROGEN PEROXIDE 3% 118 ML BOTTLE TP SCH ×2 (08:10→21:00)
[2023-10-04] MEDS: DULOXETINE 20 MG CAPSULE.DR GT SCH (09:11)
[2023-10-04] MEDS: VITAMINS A AND D 5 GM UD PKT TP SCH (09:12)
[2023-10-04] MEDS: FINASTERIDE 5 MG TABLET GT SCH (09:12)
[2023-10-04] MEDS: REMEDY ESSENTIAL ZINC PASTE 113 GM TP SCH ×2 (09:12→21:05)
[2023-10-04] MEDS: HARRIS FLUSH ENEMA PR SCH (09:12)
[2023-10-04 19:48] VITALS: TEMP 97.5
[2023-10-04] MEDS: PROTEIN SUPPLEMENT (PROSTAT) 30 ML LIQUID GT SCH (21:05)
[2023-10-04] MEDS: MULTIVIT, IRON, MIN NO. 8, FA TABLET GT SCH (21:05)
[2023-10-04] MEDS: ASCORBIC ACID 500 MG TABLET GT SCH (21:05)
[2023-10-05] MEDS: JEVITY 1.2 1000 ML LIQUID GT PRN (04:59)
[2023-10-05] MEDS: SIMETHICONE 80 MG TAB.CHEW GT SCH ×4 (05:01→17:52)
[2023-10-05] MEDS: OMEPRAZOLE 20 MG CAPSULE.DR GT SCH (05:01)
[2023-10-05] MEDS: ACIDOPHILUS/BULGARICUS CHEW TAB GT SCH ×2 (05:01→17:52)
[2023-10-05] MEDS: BACLOFEN 10 MG TABLET GT SCH ×3 (05:01→21:58)
[2023-10-05 07:42] VITALS: TEMP 99.3
[2023-10-05] MEDS: HYDROGEN PEROXIDE 3% 118 ML BOTTLE TP SCH ×2 (08:10→19:10)
[2023-10-05] MEDS: VITAMINS A AND D 5 GM UD PKT TP SCH (08:23)
[2023-10-05] MEDS: REMEDY ESSENTIAL ZINC PASTE 113 GM TP SCH ×2 (08:23→20:28)
[2023-10-05] MEDS: DULOXETINE 20 MG CAPSULE.DR GT SCH (08:23)
[2023-10-05] MEDS: FINASTERIDE 5 MG TABLET GT SCH (08:23)
[2023-10-05 19:41] VITALS: TEMP 99.1
[2023-10-05] MEDS: ASCORBIC ACID 500 MG TABLET GT SCH (20:28)
[2023-10-05] MEDS: PROTEIN SUPPLEMENT (PROSTAT) 30 ML LIQUID GT SCH (20:28)
[2023-10-05] MEDS: MULTIVIT, IRON, MIN NO. 8, FA TABLET GT SCH (20:28)
[2023-10-06] MEDS: SIMETHICONE 80 MG TAB.CHEW GT SCH ×4 (00:56→18:00)
[2023-10-06] MEDS: JEVITY 1.2 1000 ML LIQUID GT PRN ×2 (00:56→18:40)
[2023-10-06] MEDS: ACIDOPHILUS/BULGARICUS CHEW TAB GT SCH ×2 (05:20→18:00)
[2023-10-06] MEDS: BACLOFEN 10 MG TABLET GT SCH ×3 (05:20→22:03)
[2023-10-06] MEDS: OMEPRAZOLE 20 MG CAPSULE.DR GT SCH (05:20)
[2023-10-06 07:42] VITALS: TEMP 98.7
[2023-10-06] MEDS: HYDROGEN PEROXIDE 3% 118 ML BOTTLE TP SCH ×2 (09:00→19:04)
[2023-10-06] MEDS: DULOXETINE 20 MG CAPSULE.DR GT SCH (09:57)
[2023-10-06] MEDS: VITAMINS A AND D 5 GM UD PKT TP SCH (09:58)
[2023-10-06] MEDS: HARRIS FLUSH ENEMA PR SCH (09:58)
[2023-10-06] MEDS: FINASTERIDE 5 MG TABLET GT SCH (09:58)
[2023-10-06] MEDS: REMEDY ESSENTIAL ZINC PASTE 113 GM TP SCH ×2 (09:58→20:53)
[2023-10-06 20:21] VITALS: TEMP 98.6
[2023-10-06] MEDS: PROTEIN SUPPLEMENT (PROSTAT) 30 ML LIQUID GT SCH (20:52)
[2023-10-06] MEDS: MULTIVIT, IRON, MIN NO. 8, FA TABLET GT SCH (20:52)
[2023-10-06] MEDS: ASCORBIC ACID 500 MG TABLET GT SCH (20:52)
[2023-10-07] MEDS: BACLOFEN 10 MG TABLET GT SCH ×3 (05:21→21:08)
[2023-10-07] MEDS: ACIDOPHILUS/BULGARICUS CHEW TAB GT SCH ×2 (05:21→17:28)
[2023-10-07] MEDS: OMEPRAZOLE 20 MG CAPSULE.DR GT SCH (05:21)
[2023-10-07] MEDS: SIMETHICONE 80 MG TAB.CHEW GT SCH ×5 (05:21→23:29)
[2023-10-07 07:38] VITALS: TEMP 99.2
[2023-10-07] MEDS: DULOXETINE 20 MG CAPSULE.DR GT SCH (09:25)
[2023-10-07] MEDS: FINASTERIDE 5 MG TABLET GT SCH (09:25)
[2023-10-07] MEDS: REMEDY ESSENTIAL ZINC PASTE 113 GM TP SCH ×2 (09:25→20:18)
[2023-10-07] MEDS: VITAMINS A AND D 5 GM UD PKT TP SCH (09:25)
[2023-10-07] MEDS: HYDROGEN PEROXIDE 3% 118 ML BOTTLE TP SCH ×2 (09:53→21:09)
[2023-10-07 19:56] VITALS: TEMP 99.4
[2023-10-07] MEDS: MULTIVIT, IRON, MIN NO. 8, FA TABLET GT SCH (20:18)
[2023-10-07] MEDS: PROTEIN SUPPLEMENT (PROSTAT) 30 ML LIQUID GT SCH (20:18)
[2023-10-07] MEDS: ASCORBIC ACID 500 MG TABLET GT SCH (20:18)
[2023-10-08] MEDS: JEVITY 1.2 1000 ML LIQUID GT PRN (03:48)
[2023-10-08] MEDS: ACIDOPHILUS/BULGARICUS CHEW TAB GT SCH ×2 (05:08→17:09)
[2023-10-08] MEDS: BACLOFEN 10 MG TABLET GT SCH ×3 (05:08→22:06)
[2023-10-08] MEDS: OMEPRAZOLE 20 MG CAPSULE.DR GT SCH (05:08)
[2023-10-08] MEDS: SIMETHICONE 80 MG TAB.CHEW GT SCH ×3 (05:08→17:10)
[2023-10-08 07:27] VITALS: TEMP 98.9
[2023-10-08] MEDS: HYDROGEN PEROXIDE 3% 118 ML BOTTLE TP SCH ×2 (08:45→19:04)
[2023-10-08] MEDS: REMEDY ESSENTIAL ZINC PASTE 113 GM TP SCH ×2 (09:26→20:41)
[2023-10-08] MEDS: FINASTERIDE 5 MG TABLET GT SCH (09:26)
[2023-10-08] MEDS: VITAMINS A AND D 5 GM UD PKT TP SCH (09:26)
[2023-10-08] MEDS: DULOXETINE 20 MG CAPSULE.DR GT SCH (09:26)
[2023-10-08 19:42] VITALS: TEMP 99
[2023-10-08] MEDS: MULTIVIT, IRON, MIN NO. 8, FA TABLET GT SCH (20:41)
[2023-10-08] MEDS: ASCORBIC ACID 500 MG TABLET GT SCH (20:41)
[2023-10-08] MEDS: PROTEIN SUPPLEMENT (PROSTAT) 30 ML LIQUID GT SCH (20:41)
[2023-10-09] MEDS: SIMETHICONE 80 MG TAB.CHEW GT SCH ×4 (00:57→18:12)
[2023-10-09] MEDS: OMEPRAZOLE 20 MG CAPSULE.DR GT SCH (06:46)
[2023-10-09] MEDS: ACIDOPHILUS/BULGARICUS CHEW TAB GT SCH ×2 (06:46→18:12)
[2023-10-09] MEDS: BACLOFEN 10 MG TABLET GT SCH ×3 (06:46→21:10)
[2023-10-09] MEDS: HYDROGEN PEROXIDE 3% 118 ML BOTTLE TP SCH ×2 (07:22→19:06)
[2023-10-09 08:49] VITALS: TEMP 99.6
[2023-10-09] MEDS: VITAMINS A AND D 5 GM UD PKT TP SCH (09:33)
[2023-10-09] MEDS: REMEDY ESSENTIAL ZINC PASTE 113 GM TP SCH ×2 (09:33→20:20)
[2023-10-09] MEDS: FINASTERIDE 5 MG TABLET GT SCH (09:33)
[2023-10-09] MEDS: DULOXETINE 20 MG CAPSULE.DR GT SCH (09:33)
[2023-10-09] MEDS: HARRIS FLUSH ENEMA PR SCH (09:33)
[2023-10-09] MEDS: JEVITY 1.2 1000 ML LIQUID GT PRN ×2 (16:36)
[2023-10-09 19:31] VITALS: TEMP 99.3
[2023-10-09] MEDS: ASCORBIC ACID 500 MG TABLET GT SCH (20:20)
[2023-10-09] MEDS: MULTIVIT, IRON, MIN NO. 8, FA TABLET GT SCH (20:20)
[2023-10-09] MEDS: PROTEIN SUPPLEMENT (PROSTAT) 30 ML LIQUID GT SCH (20:20)
[2023-10-10] MEDS: SIMETHICONE 80 MG TAB.CHEW GT SCH ×4 (00:17→18:21)
[2023-10-10] MEDS: OMEPRAZOLE 20 MG CAPSULE.DR GT SCH (05:20)
[2023-10-10] MEDS: ACIDOPHILUS/BULGARICUS CHEW TAB GT SCH ×2 (05:20→18:20)
[2023-10-10] MEDS: BACLOFEN 10 MG TABLET GT SCH ×3 (05:20→22:45)
[2023-10-10 07:34] VITALS: TEMP 98.8
[2023-10-10] MEDS: HYDROGEN PEROXIDE 3% 118 ML BOTTLE TP SCH ×2 (09:00→19:21)
[2023-10-10] MEDS: VITAMINS A AND D 5 GM UD PKT TP SCH (09:47)
[2023-10-10] MEDS: DULOXETINE 20 MG CAPSULE.DR GT SCH (09:47)
[2023-10-10] MEDS: REMEDY ESSENTIAL ZINC PASTE 113 GM TP SCH ×2 (09:47→20:06)
[2023-10-10] MEDS: FINASTERIDE 5 MG TABLET GT SCH (09:47)
[2023-10-10] MEDS: JEVITY 1.2 1000 ML LIQUID GT PRN (12:02)
[2023-10-10] MEDS: HARRIS FLUSH ENEMA PR PRN (18:25)
[2023-10-10] MEDS: POLYVINYL ALCOHOL OPHT DROPS 15 ML BOTTLE EACHEYE PRN (18:30)
[2023-10-10 19:54] VITALS: TEMP 98.2
[2023-10-10] MEDS: ASCORBIC ACID 500 MG TABLET GT SCH (20:06)
[2023-10-10] MEDS: PROTEIN SUPPLEMENT (PROSTAT) 30 ML LIQUID GT SCH (20:06)
[2023-10-10] MEDS: MULTIVIT, IRON, MIN NO. 8, FA TABLET GT SCH (20:06)
[2023-10-11] MEDS: SIMETHICONE 80 MG TAB.CHEW GT SCH ×4 (00:07→17:08)
[2023-10-11] MEDS: ACIDOPHILUS/BULGARICUS CHEW TAB GT SCH ×2 (05:28→17:08)
[2023-10-11] MEDS: OMEPRAZOLE 20 MG CAPSULE.DR GT SCH (05:28)
[2023-10-11] MEDS: BACLOFEN 10 MG TABLET GT SCH ×3 (05:28→21:00)
[2023-10-11 07:40] VITALS: TEMP 97.9
[2023-10-11] MEDS: HYDROGEN PEROXIDE 3% 118 ML BOTTLE TP SCH ×2 (09:00→19:06)
[2023-10-11] MEDS: DULOXETINE 20 MG CAPSULE.DR GT SCH (09:02)
[2023-10-11] MEDS: FINASTERIDE 5 MG TABLET GT SCH (09:02)
[2023-10-11] MEDS: HARRIS FLUSH ENEMA PR SCH (09:03)
[2023-10-11] MEDS: VITAMINS A AND D 5 GM UD PKT TP SCH (09:04)
[2023-10-11] MEDS: REMEDY ESSENTIAL ZINC PASTE 113 GM TP SCH ×2 (09:04→21:00)
[2023-10-11] MEDS: JEVITY 1.2 1000 ML LIQUID GT PRN (13:35)
[2023-10-11 20:00] VITALS: TEMP 99
[2023-10-11] MEDS: PROTEIN SUPPLEMENT (PROSTAT) 30 ML LIQUID GT SCH (21:00)
[2023-10-11] MEDS: MULTIVIT, IRON, MIN NO. 8, FA TABLET GT SCH (21:00)
[2023-10-11] MEDS: ASCORBIC ACID 500 MG TABLET GT SCH (21:00)
[2023-10-12] MEDS: SIMETHICONE 80 MG TAB.CHEW GT SCH ×4 (00:42→17:36)
[2023-10-12] MEDS: BACLOFEN 10 MG TABLET GT SCH ×3 (05:15→21:37)
[2023-10-12] MEDS: OMEPRAZOLE 20 MG CAPSULE.DR GT SCH (05:15)
[2023-10-12] MEDS: JEVITY 1.2 1000 ML LIQUID GT PRN (05:15)
[2023-10-12] MEDS: ACIDOPHILUS/BULGARICUS CHEW TAB GT SCH ×2 (05:15→17:36)
[2023-10-12 06:10] LABS: BASOPHILS % (AUTO) 0.4 % (0.0-2.0); EOSINOPHILS # (AUTO) 0.1 K/uL (0.0-0.7); HEMATOCRIT 38.8 % (36.7-47.1); HEMOGLOBIN 12.8 g/dL (12.5-16.3); LYMPHOCYTES # (AUTO) 1.6 K/uL (0.8-4.8); LYMPHOCYTES % (AUTO) 33.5 % (20.5-51.5); MEAN CORPUSCULAR HEMOGLOBIN 27.9 uug (23.8-33.4); MEAN CORPUSCULAR HGB CONC 33 g/dL (32.5-36.3); MEAN CORPUSCULAR VOLUME 84.8 fL (73.0-96.2); MONOCYTES # (AUTO) 0.4 K/uL (0.1-1.30); MONOCYTES % (AUTO) 8.7 % (0.0-11.0); NEUTROPHILS # (AUTO) 2.5 K/uL (1.8-8.9); NEUTROPHILS % (AUTO) 54.4 % (38.5-71.5); PLATELET COUNT (AUTO) 243 K/uL (152-348); RED BLOOD CELL COUNT(AUTO) 4.57 MIL/uL (4.06-5.63); WHITE BLOOD COUNT (AUTO) 4.7 K/uL (3.6-10.2)
[2023-10-12 07:08] LABS: CALCIUM 9.3 mg/dL (8.5-10.1); CARBON DIOXIDE 26 mmol/L (21-32); CHLORIDE 104 mmol/L (98-107); CREATININE 0.6 mg/dL (0.6-1.3); GLUCOSE 119 mg/dL (74-106); MAGNESIUM 2.3 mg/dL (1.8-2.4); PHOSPHOROUS 3.4 mg/dL (2.5-4.9); POTASSIUM 4.3 mmol/L (3.5-5.1); SODIUM SERUM 136 mmol/L (136-145); UREA NITROGEN, BLOOD 31 mg/dL (7-18)
[2023-10-12 07:22] LABS: DIFFERENTIAL COMMENT 1
[2023-10-12] MEDS: HYDROGEN PEROXIDE 3% 118 ML BOTTLE TP SCH ×2 (07:29→20:46)
[2023-10-12 07:32] VITALS: TEMP 97
[2023-10-12] MEDS: DULOXETINE 20 MG CAPSULE.DR GT SCH (09:04)
[2023-10-12] MEDS: FINASTERIDE 5 MG TABLET GT SCH (09:04)
[2023-10-12] MEDS: REMEDY ESSENTIAL ZINC PASTE 113 GM TP SCH ×2 (09:05→20:43)
[2023-10-12] MEDS: VITAMINS A AND D 5 GM UD PKT TP SCH (09:05)
[2023-10-12 20:01] VITALS: TEMP 98.6
[2023-10-12] MEDS: PROTEIN SUPPLEMENT (PROSTAT) 30 ML LIQUID GT SCH (20:43)
[2023-10-12] MEDS: ASCORBIC ACID 500 MG TABLET GT SCH (20:43)
[2023-10-12] MEDS: MULTIVIT, IRON, MIN NO. 8, FA TABLET GT SCH (20:43)
[2023-10-13] MEDS: JEVITY 1.2 1000 ML LIQUID GT PRN ×2 (00:42→19:36)
[2023-10-13] MEDS: SIMETHICONE 80 MG TAB.CHEW GT SCH ×4 (00:42→18:52)
[2023-10-13] MEDS: ACIDOPHILUS/BULGARICUS CHEW TAB GT SCH ×2 (05:30→18:51)
[2023-10-13] MEDS: OMEPRAZOLE 20 MG CAPSULE.DR GT SCH (05:31)
[2023-10-13] MEDS: BACLOFEN 10 MG TABLET GT SCH ×3 (05:31→22:22)
[2023-10-13 07:44] VITALS: TEMP 97.7
[2023-10-13] MEDS: HYDROGEN PEROXIDE 3% 118 ML BOTTLE TP SCH ×2 (08:14→21:42)
[2023-10-13] MEDS: HARRIS FLUSH ENEMA PR SCH (09:00)
[2023-10-13] MEDS: FINASTERIDE 5 MG TABLET GT SCH (09:00)
[2023-10-13] MEDS: REMEDY ESSENTIAL ZINC PASTE 113 GM TP SCH ×2 (09:00→20:19)
[2023-10-13] MEDS: VITAMINS A AND D 5 GM UD PKT TP SCH (09:00)
[2023-10-13] MEDS: DULOXETINE 20 MG CAPSULE.DR GT SCH (09:00)
[2023-10-13] MEDS: MAGNESIUM HYDROXIDE 30 ML LIQUID UDC GT PRN (14:41)
[2023-10-13 20:18] VITALS: TEMP 98.2
[2023-10-13] MEDS: ASCORBIC ACID 500 MG TABLET GT SCH (20:19)
[2023-10-13] MEDS: PROTEIN SUPPLEMENT (PROSTAT) 30 ML LIQUID GT SCH (20:19)
[2023-10-13] MEDS: MULTIVIT, IRON, MIN NO. 8, FA TABLET GT SCH (20:19)
[2023-10-14] MEDS: OMEPRAZOLE 20 MG CAPSULE.DR GT SCH (05:36)
[2023-10-14] MEDS: ACIDOPHILUS/BULGARICUS CHEW TAB GT SCH ×2 (05:36→18:12)
[2023-10-14] MEDS: BACLOFEN 10 MG TABLET GT SCH ×3 (05:36→21:53)
[2023-10-14] MEDS: SIMETHICONE 80 MG TAB.CHEW GT SCH ×5 (05:36→23:39)
[2023-10-14 07:33] VITALS: TEMP 98.3
[2023-10-14] MEDS: DULOXETINE 20 MG CAPSULE.DR GT SCH (08:56)
[2023-10-14] MEDS: FINASTERIDE 5 MG TABLET GT SCH (08:56)
[2023-10-14] MEDS: REMEDY ESSENTIAL ZINC PASTE 113 GM TP SCH ×2 (08:57→20:25)
[2023-10-14] MEDS: VITAMINS A AND D 5 GM UD PKT TP SCH (08:57)
[2023-10-14] MEDS: HYDROGEN PEROXIDE 3% 118 ML BOTTLE TP SCH ×2 (09:16→19:05)
[2023-10-14 10:30] VITALS: O2SAT 99
[2023-10-14] MEDS ORDERED: TUBERCULIN,PURIF.PROT.DERIV. 5 TU/0.1 ML TEST ID SCH (12:00)
[2023-10-14 20:00] VITALS: TEMP 98.5
[2023-10-14] MEDS: MULTIVIT, IRON, MIN NO. 8, FA TABLET GT SCH (20:25)
[2023-10-14] MEDS: PROTEIN SUPPLEMENT (PROSTAT) 30 ML LIQUID GT SCH (20:25)
[2023-10-14] MEDS: ASCORBIC ACID 500 MG TABLET GT SCH (20:25)
[2023-10-15] MEDS: JEVITY 1.2 1000 ML LIQUID GT PRN (04:20)
[2023-10-15] MEDS: BACLOFEN 10 MG TABLET GT SCH ×3 (05:24→21:07)
[2023-10-15] MEDS: ACIDOPHILUS/BULGARICUS CHEW TAB GT SCH ×2 (05:24→18:05)
[2023-10-15] MEDS: OMEPRAZOLE 20 MG CAPSULE.DR GT SCH (05:24)
[2023-10-15] MEDS: SIMETHICONE 80 MG TAB.CHEW GT SCH ×3 (05:24→18:05)
[2023-10-15 07:31] VITALS: TEMP 99.3
[2023-10-15] MEDS: FINASTERIDE 5 MG TABLET GT SCH (09:05)
[2023-10-15] MEDS: DULOXETINE 20 MG CAPSULE.DR GT SCH (09:05)
[2023-10-15] MEDS: REMEDY ESSENTIAL ZINC PASTE 113 GM TP SCH ×2 (09:05→21:07)
[2023-10-15] MEDS: VITAMINS A AND D 5 GM UD PKT TP SCH (09:05)
[2023-10-15] MEDS: HYDROGEN PEROXIDE 3% 118 ML BOTTLE TP SCH ×2 (09:06→21:21)
[2023-10-15 20:00] VITALS: TEMP 98.4
[2023-10-15] MEDS: MULTIVIT, IRON, MIN NO. 8, FA TABLET GT SCH (21:05)
[2023-10-15] MEDS: PROTEIN SUPPLEMENT (PROSTAT) 30 ML LIQUID GT SCH (21:05)
[2023-10-15] MEDS: ASCORBIC ACID 500 MG TABLET GT SCH (21:07)
[2023-10-16] MEDS: JEVITY 1.2 1000 ML LIQUID GT PRN (02:00)
[2023-10-16] MEDS: ACIDOPHILUS/BULGARICUS CHEW TAB GT SCH ×2 (06:12→17:55)
[2023-10-16] MEDS: BACLOFEN 10 MG TABLET GT SCH ×3 (06:12→21:13)
[2023-10-16] MEDS: OMEPRAZOLE 20 MG CAPSULE.DR GT SCH (06:13)
[2023-10-16] MEDS: SIMETHICONE 80 MG TAB.CHEW GT SCH ×4 (06:13→17:55)
[2023-10-16 07:35] VITALS: TEMP 98.8
[2023-10-16] MEDS: REMEDY ESSENTIAL ZINC PASTE 113 GM TP SCH ×2 (08:37→21:13)
[2023-10-16] MEDS: DULOXETINE 20 MG CAPSULE.DR GT SCH (08:37)
[2023-10-16] MEDS: FINASTERIDE 5 MG TABLET GT SCH (08:37)
[2023-10-16] MEDS: HARRIS FLUSH ENEMA PR SCH (08:37)
[2023-10-16] MEDS: VITAMINS A AND D 5 GM UD PKT TP SCH (08:37)
[2023-10-16] MEDS: HYDROGEN PEROXIDE 3% 118 ML BOTTLE TP SCH ×2 (09:00→21:03)
[2023-10-16] MEDS ORDERED: TUBERCULIN,PURIF.PROT.DERIV. 5 TU/0.1 ML TEST ID ONE (14:00)
[2023-10-16 20:08] VITALS: TEMP 98
[2023-10-16] MEDS: PROTEIN SUPPLEMENT (PROSTAT) 30 ML LIQUID GT SCH (21:11)
[2023-10-16] MEDS: MULTIVIT, IRON, MIN NO. 8, FA TABLET GT SCH (21:11)
[2023-10-16] MEDS: ASCORBIC ACID 500 MG TABLET GT SCH (21:12)
[2023-10-17] MEDS: SIMETHICONE 80 MG TAB.CHEW GT SCH ×5 (00:41→23:52)
[2023-10-17] MEDS: BACLOFEN 10 MG TABLET GT SCH ×3 (05:30→21:39)
[2023-10-17] MEDS: ACIDOPHILUS/BULGARICUS CHEW TAB GT SCH ×2 (05:30→17:31)
[2023-10-17] MEDS: OMEPRAZOLE 20 MG CAPSULE.DR GT SCH (05:31)
[2023-10-17 07:33] VITALS: TEMP 98.8
[2023-10-17] MEDS: VITAMINS A AND D 5 GM UD PKT TP SCH (08:47)
[2023-10-17] MEDS: REMEDY ESSENTIAL ZINC PASTE 113 GM TP SCH ×2 (08:47→21:39)
[2023-10-17] MEDS: FINASTERIDE 5 MG TABLET GT SCH (08:47)
[2023-10-17] MEDS: DULOXETINE 20 MG CAPSULE.DR GT SCH (08:47)
[2023-10-17] MEDS: HYDROGEN PEROXIDE 3% 118 ML BOTTLE TP SCH ×2 (09:31→21:22)
[2023-10-17 20:11] VITALS: TEMP 98.9
[2023-10-17] MEDS: MULTIVIT, IRON, MIN NO. 8, FA TABLET GT SCH (21:39)
[2023-10-17] MEDS: PROTEIN SUPPLEMENT (PROSTAT) 30 ML LIQUID GT SCH (21:39)
[2023-10-18] MEDS: ACIDOPHILUS/BULGARICUS CHEW TAB GT SCH ×2 (05:52→17:21)
[2023-10-18] MEDS: OMEPRAZOLE 20 MG CAPSULE.DR GT SCH (05:53)
[2023-10-18] MEDS: SIMETHICONE 80 MG TAB.CHEW GT SCH ×4 (05:53→23:17)
[2023-10-18] MEDS: BACLOFEN 10 MG TABLET GT SCH ×3 (05:53→22:00)
[2023-10-18 08:00] VITALS: TEMP 97.8
[2023-10-18] MEDS: FINASTERIDE 5 MG TABLET GT SCH (09:00)
[2023-10-18] MEDS: HYDROGEN PEROXIDE 3% 118 ML BOTTLE TP SCH ×2 (09:00→21:45)
[2023-10-18] MEDS: VITAMINS A AND D 5 GM UD PKT TP SCH (09:00)
[2023-10-18] MEDS: DULOXETINE 20 MG CAPSULE.DR GT SCH (09:00)
[2023-10-18] MEDS: REMEDY ESSENTIAL ZINC PASTE 113 GM TP SCH ×2 (09:00→21:00)
[2023-10-18] MEDS: HARRIS FLUSH ENEMA PR SCH (09:00)
[2023-10-18] MEDS: JEVITY 1.2 1000 ML LIQUID GT PRN (10:50)
[2023-10-18 20:08] VITALS: TEMP 98.9
[2023-10-18] MEDS: MULTIVIT, IRON, MIN NO. 8, FA TABLET GT SCH (21:00)
[2023-10-18] MEDS: PROTEIN SUPPLEMENT (PROSTAT) 30 ML LIQUID GT SCH (21:00)
[2023-10-19] MEDS: JEVITY 1.2 1000 ML LIQUID GT PRN (03:24)
[2023-10-19] MEDS: ACIDOPHILUS/BULGARICUS CHEW TAB GT SCH ×2 (05:59→17:13)
[2023-10-19] MEDS: OMEPRAZOLE 20 MG CAPSULE.DR GT SCH (06:00)
[2023-10-19] MEDS: SIMETHICONE 80 MG TAB.CHEW GT SCH ×3 (06:00→17:13)
[2023-10-19] MEDS: BACLOFEN 10 MG TABLET GT SCH ×3 (06:00→21:20)
[2023-10-19 08:00] VITALS: TEMP 98.2
[2023-10-19] MEDS: FINASTERIDE 5 MG TABLET GT SCH (09:26)
[2023-10-19] MEDS: REMEDY ESSENTIAL ZINC PASTE 113 GM TP SCH ×2 (09:26→21:20)
[2023-10-19] MEDS: DULOXETINE 20 MG CAPSULE.DR GT SCH (09:26)
[2023-10-19] MEDS: VITAMINS A AND D 5 GM UD PKT TP SCH (09:26)
[2023-10-19 20:00] VITALS: TEMP 97.7
[2023-10-19] MEDS: HYDROGEN PEROXIDE 3% 118 ML BOTTLE TP SCH (20:16)
[2023-10-19] MEDS: PROTEIN SUPPLEMENT (PROSTAT) 30 ML LIQUID GT SCH (21:20)
[2023-10-19] MEDS: MULTIVIT, IRON, MIN NO. 8, FA TABLET GT SCH (21:20)
[2023-10-20] MEDS: JEVITY 1.2 1000 ML LIQUID GT PRN ×2 (01:05→16:59)
[2023-10-20] MEDS: OMEPRAZOLE 20 MG CAPSULE.DR GT SCH (05:20)
[2023-10-20] MEDS: SIMETHICONE 80 MG TAB.CHEW GT SCH ×4 (05:20→17:03)
[2023-10-20] MEDS: ACIDOPHILUS/BULGARICUS CHEW TAB GT SCH ×2 (05:20→17:03)
[2023-10-20] MEDS: BACLOFEN 10 MG TABLET GT SCH ×3 (05:20→22:00)
[2023-10-20 07:55] VITALS: TEMP 98.5
[2023-10-20] MEDS: HYDROGEN PEROXIDE 3% 118 ML BOTTLE TP SCH ×2 (09:11→20:26)
[2023-10-20] MEDS: VITAMINS A AND D 5 GM UD PKT TP SCH (09:50)
[2023-10-20] MEDS: DULOXETINE 20 MG CAPSULE.DR GT SCH (09:50)
[2023-10-20] MEDS: REMEDY ESSENTIAL ZINC PASTE 113 GM TP SCH ×2 (09:50→21:59)
[2023-10-20] MEDS: FINASTERIDE 5 MG TABLET GT SCH (09:50)
[2023-10-20] MEDS: HARRIS FLUSH ENEMA PR SCH (09:50)
[2023-10-20 20:00] VITALS: TEMP 98.7
[2023-10-20] MEDS: MULTIVIT, IRON, MIN NO. 8, FA TABLET GT SCH (21:59)
[2023-10-20] MEDS: PROTEIN SUPPLEMENT (PROSTAT) 30 ML LIQUID GT SCH (21:59)
[2023-10-21] MEDS: ACIDOPHILUS/BULGARICUS CHEW TAB GT SCH ×2 (05:14→17:33)
[2023-10-21] MEDS: BACLOFEN 10 MG TABLET GT SCH ×3 (05:14→21:49)
[2023-10-21] MEDS: OMEPRAZOLE 20 MG CAPSULE.DR GT SCH (05:15)
[2023-10-21] MEDS: SIMETHICONE 80 MG TAB.CHEW GT SCH ×5 (05:15→23:44)
[2023-10-21 07:47] VITALS: TEMP 98.3
[2023-10-21] MEDS: DULOXETINE 20 MG CAPSULE.DR GT SCH (08:55)
[2023-10-21] MEDS: VITAMINS A AND D 5 GM UD PKT TP SCH (08:56)
[2023-10-21] MEDS: REMEDY ESSENTIAL ZINC PASTE 113 GM TP SCH ×2 (08:56→21:48)
[2023-10-21] MEDS: FINASTERIDE 5 MG TABLET GT SCH (08:56)
[2023-10-21] MEDS: HYDROGEN PEROXIDE 3% 118 ML BOTTLE TP SCH ×2 (09:00→19:27)
[2023-10-21] MEDS: JEVITY 1.2 1000 ML LIQUID GT PRN (10:30)
[2023-10-21 20:04] VITALS: TEMP 98
[2023-10-21] MEDS: MULTIVIT, IRON, MIN NO. 8, FA TABLET GT SCH (21:48)
[2023-10-21] MEDS: PROTEIN SUPPLEMENT (PROSTAT) 30 ML LIQUID GT SCH (21:49)
[2023-10-22] MEDS: ACIDOPHILUS/BULGARICUS CHEW TAB GT SCH ×2 (05:21→17:17)
[2023-10-22] MEDS: BACLOFEN 10 MG TABLET GT SCH ×3 (05:21→22:45)
[2023-10-22] MEDS: OMEPRAZOLE 20 MG CAPSULE.DR GT SCH (05:21)
[2023-10-22] MEDS: SIMETHICONE 80 MG TAB.CHEW GT SCH ×3 (05:21→17:17)
[2023-10-22] MEDS: JEVITY 1.2 1000 ML LIQUID GT PRN ×2 (05:22→22:43)
[2023-10-22 07:47] VITALS: TEMP 98.2
[2023-10-22] MEDS: HYDROGEN PEROXIDE 3% 118 ML BOTTLE TP SCH ×2 (09:10→19:24)
[2023-10-22] MEDS: DULOXETINE 20 MG CAPSULE.DR GT SCH (09:14)
[2023-10-22] MEDS: REMEDY ESSENTIAL ZINC PASTE 113 GM TP SCH ×2 (09:15→21:00)
[2023-10-22] MEDS: VITAMINS A AND D 5 GM UD PKT TP SCH (09:15)
[2023-10-22] MEDS: FINASTERIDE 5 MG TABLET GT SCH (09:15)
[2023-10-22 20:10] VITALS: TEMP 98.5
[2023-10-22] MEDS: MULTIVIT, IRON, MIN NO. 8, FA TABLET GT SCH (21:00)
[2023-10-22] MEDS: PROTEIN SUPPLEMENT (PROSTAT) 30 ML LIQUID GT SCH (21:00)
[2023-10-23] MEDS: ACIDOPHILUS/BULGARICUS CHEW TAB GT SCH ×2 (05:50→17:14)
[2023-10-23] MEDS: SIMETHICONE 80 MG TAB.CHEW GT SCH ×4 (05:50→17:14)
[2023-10-23] MEDS: BACLOFEN 10 MG TABLET GT SCH ×3 (05:50→22:41)
[2023-10-23] MEDS: OMEPRAZOLE 20 MG CAPSULE.DR GT SCH (05:50)
[2023-10-23 07:38] VITALS: TEMP 98.5
[2023-10-23] MEDS: DULOXETINE 20 MG CAPSULE.DR GT SCH (08:57)
[2023-10-23] MEDS: VITAMINS A AND D 5 GM UD PKT TP SCH (08:57)
[2023-10-23] MEDS: FINASTERIDE 5 MG TABLET GT SCH (08:57)
[2023-10-23] MEDS: HARRIS FLUSH ENEMA PR SCH (08:57)
[2023-10-23] MEDS: REMEDY ESSENTIAL ZINC PASTE 113 GM TP SCH ×2 (08:57→21:00)
[2023-10-23] MEDS: HYDROGEN PEROXIDE 3% 118 ML BOTTLE TP SCH ×2 (09:00→19:20)
[2023-10-23] MEDS: JEVITY 1.2 1000 ML LIQUID GT PRN (17:15)
[2023-10-23 20:08] VITALS: TEMP 97.9
[2023-10-23] MEDS: PROTEIN SUPPLEMENT (PROSTAT) 30 ML LIQUID GT SCH (21:00)
[2023-10-23] MEDS: MULTIVIT, IRON, MIN NO. 8, FA TABLET GT SCH (21:00)
[2023-10-24] MEDS: ACIDOPHILUS/BULGARICUS CHEW TAB GT SCH ×2 (06:00→17:15)
[2023-10-24] MEDS: OMEPRAZOLE 20 MG CAPSULE.DR GT SCH (06:00)
[2023-10-24] MEDS: SIMETHICONE 80 MG TAB.CHEW GT SCH ×4 (06:00→17:16)
[2023-10-24] MEDS: BACLOFEN 10 MG TABLET GT SCH ×3 (06:00→21:37)
[2023-10-24] MEDS: FINASTERIDE 5 MG TABLET GT SCH (08:56)
[2023-10-24] MEDS: DULOXETINE 20 MG CAPSULE.DR GT SCH (08:56)
[2023-10-24] MEDS: REMEDY ESSENTIAL ZINC PASTE 113 GM TP SCH ×2 (08:56→21:37)
[2023-10-24] MEDS: VITAMINS A AND D 5 GM UD PKT TP SCH (09:00)
[2023-10-24] MEDS: HYDROGEN PEROXIDE 3% 118 ML BOTTLE TP SCH ×2 (09:00→21:15)
[2023-10-24] MEDS: JEVITY 1.2 1000 ML LIQUID GT PRN (12:03)
[2023-10-24 20:18] VITALS: TEMP 98.3
[2023-10-24] MEDS: PROTEIN SUPPLEMENT (PROSTAT) 30 ML LIQUID GT SCH (21:30)
[2023-10-24] MEDS: MULTIVIT, IRON, MIN NO. 8, FA TABLET GT SCH (21:31)
[2023-10-25] MEDS: JEVITY 1.2 1000 ML LIQUID GT PRN (04:26)
[2023-10-25] MEDS: SIMETHICONE 80 MG TAB.CHEW GT SCH ×4 (05:46→18:01)
[2023-10-25] MEDS: ACIDOPHILUS/BULGARICUS CHEW TAB GT SCH ×2 (05:46→18:01)
[2023-10-25] MEDS: BACLOFEN 10 MG TABLET GT SCH ×3 (05:46→21:35)
[2023-10-25] MEDS: OMEPRAZOLE 20 MG CAPSULE.DR GT SCH (05:46)
[2023-10-25] MEDS: HYDROGEN PEROXIDE 3% 118 ML BOTTLE TP SCH ×2 (07:11→22:44)
[2023-10-25] MEDS: VITAMINS A AND D 5 GM UD PKT TP SCH (09:52)
[2023-10-25] MEDS: HARRIS FLUSH ENEMA PR SCH (09:52)
[2023-10-25] MEDS: REMEDY ESSENTIAL ZINC PASTE 113 GM TP SCH ×2 (09:52→21:35)
[2023-10-25] MEDS: DULOXETINE 20 MG CAPSULE.DR GT SCH (09:52)
[2023-10-25] MEDS: FINASTERIDE 5 MG TABLET GT SCH (09:52)
[2023-10-25 20:00] VITALS: TEMP 98.4
[2023-10-25] MEDS: PROTEIN SUPPLEMENT (PROSTAT) 30 ML LIQUID GT SCH (21:35)
[2023-10-25] MEDS: MULTIVIT, IRON, MIN NO. 8, FA TABLET GT SCH (21:35)
[2023-10-26] MEDS: SIMETHICONE 80 MG TAB.CHEW GT SCH ×4 (00:09→17:24)
[2023-10-26] MEDS: JEVITY 1.2 1000 ML LIQUID GT PRN ×2 (01:29→17:56)
[2023-10-26] MEDS: BACLOFEN 10 MG TABLET GT SCH ×3 (05:30→21:10)
[2023-10-26] MEDS: OMEPRAZOLE 20 MG CAPSULE.DR GT SCH (05:30)
[2023-10-26] MEDS: ACIDOPHILUS/BULGARICUS CHEW TAB GT SCH ×2 (05:30→17:24)
[2023-10-26 08:00] VITALS: TEMP 98.1
[2023-10-26] MEDS: DULOXETINE 20 MG CAPSULE.DR GT SCH (08:51)
[2023-10-26] MEDS: FINASTERIDE 5 MG TABLET GT SCH (08:51)
[2023-10-26] MEDS: REMEDY ESSENTIAL ZINC PASTE 113 GM TP SCH ×2 (08:52→21:10)
[2023-10-26] MEDS: VITAMINS A AND D 5 GM UD PKT TP SCH (08:52)
[2023-10-26] MEDS: HYDROGEN PEROXIDE 3% 118 ML BOTTLE TP SCH ×2 (09:00→19:16)
[2023-10-26 20:00] VITALS: TEMP 98
[2023-10-26] MEDS: PROTEIN SUPPLEMENT (PROSTAT) 30 ML LIQUID GT SCH (21:10)
[2023-10-26] MEDS: MULTIVIT, IRON, MIN NO. 8, FA TABLET GT SCH (21:10)
[2023-10-27] MEDS: BACLOFEN 10 MG TABLET GT SCH ×3 (05:21→22:15)
[2023-10-27] MEDS: OMEPRAZOLE 20 MG CAPSULE.DR GT SCH (05:21)
[2023-10-27] MEDS: SIMETHICONE 80 MG TAB.CHEW GT SCH ×4 (05:21→18:15)
[2023-10-27] MEDS: ACIDOPHILUS/BULGARICUS CHEW TAB GT SCH ×2 (05:21→18:14)
[2023-10-27] MEDS: VITAMINS A AND D 5 GM UD PKT TP SCH (09:00)
[2023-10-27] MEDS: FINASTERIDE 5 MG TABLET GT SCH (09:00)
[2023-10-27] MEDS: DULOXETINE 20 MG CAPSULE.DR GT SCH (09:00)
[2023-10-27] MEDS: REMEDY ESSENTIAL ZINC PASTE 113 GM TP SCH ×2 (09:00→21:00)
[2023-10-27] MEDS: HYDROGEN PEROXIDE 3% 118 ML BOTTLE TP SCH ×2 (09:00→21:00)
[2023-10-27] MEDS: HARRIS FLUSH ENEMA PR SCH (09:00)
[2023-10-27] MEDS: JEVITY 1.2 1000 ML LIQUID GT PRN (11:27)
[2023-10-27 14:00] VITALS: TEMP 97.7
[2023-10-27 20:00] VITALS: TEMP 98.8
[2023-10-27] MEDS: MULTIVIT, IRON, MIN NO. 8, FA TABLET GT SCH (21:00)
[2023-10-27] MEDS: PROTEIN SUPPLEMENT (PROSTAT) 30 ML LIQUID GT SCH (21:00)
[2023-10-28] MEDS: SIMETHICONE 80 MG TAB.CHEW GT SCH ×5 (00:24→23:22)
[2023-10-28] MEDS: JEVITY 1.2 1000 ML LIQUID GT PRN ×2 (04:28→23:01)
[2023-10-28] MEDS: OMEPRAZOLE 20 MG CAPSULE.DR GT SCH (05:03)
[2023-10-28] MEDS: BACLOFEN 10 MG TABLET GT SCH ×3 (05:03→21:57)
[2023-10-28] MEDS: ACIDOPHILUS/BULGARICUS CHEW TAB GT SCH ×2 (05:03→17:33)
[2023-10-28 08:05] VITALS: TEMP 98.8
[2023-10-28] MEDS: FINASTERIDE 5 MG TABLET GT SCH (08:41)
[2023-10-28] MEDS: VITAMINS A AND D 5 GM UD PKT TP SCH (08:41)
[2023-10-28] MEDS: REMEDY ESSENTIAL ZINC PASTE 113 GM TP SCH ×2 (08:41→21:55)
[2023-10-28] MEDS: DULOXETINE 20 MG CAPSULE.DR GT SCH (08:41)
[2023-10-28] MEDS: HYDROGEN PEROXIDE 3% 118 ML BOTTLE TP SCH ×2 (09:00→19:20)
[2023-10-28 20:00] VITALS: TEMP 98.4
[2023-10-28] MEDS: MULTIVIT, IRON, MIN NO. 8, FA TABLET GT SCH (21:54)
[2023-10-28] MEDS: PROTEIN SUPPLEMENT (PROSTAT) 30 ML LIQUID GT SCH (21:54)
[2023-10-29] MEDS: BACLOFEN 10 MG TABLET GT SCH ×3 (05:34→22:22)
[2023-10-29] MEDS: SIMETHICONE 80 MG TAB.CHEW GT SCH ×3 (05:34→17:24)
[2023-10-29] MEDS: ACIDOPHILUS/BULGARICUS CHEW TAB GT SCH ×2 (05:34→17:24)
[2023-10-29] MEDS: OMEPRAZOLE 20 MG CAPSULE.DR GT SCH (05:35)
[2023-10-29 08:30] VITALS: TEMP 98.4
[2023-10-29] MEDS: DULOXETINE 20 MG CAPSULE.DR GT SCH (09:29)
[2023-10-29] MEDS: FINASTERIDE 5 MG TABLET GT SCH (09:30)
[2023-10-29] MEDS: HYDROGEN PEROXIDE 3% 118 ML BOTTLE TP SCH ×2 (09:31→20:56)
[2023-10-29] MEDS: REMEDY ESSENTIAL ZINC PASTE 113 GM TP SCH ×2 (09:31→21:00)
[2023-10-29] MEDS: VITAMINS A AND D 5 GM UD PKT TP SCH (09:31)
[2023-10-29 20:00] VITALS: TEMP 98.6
[2023-10-29] MEDS: PROTEIN SUPPLEMENT (PROSTAT) 30 ML LIQUID GT SCH (21:00)
[2023-10-29] MEDS: MULTIVIT, IRON, MIN NO. 8, FA TABLET GT SCH (21:00)
[2023-10-30] MEDS: SIMETHICONE 80 MG TAB.CHEW GT SCH ×4 (00:13→17:23)
[2023-10-30] MEDS: BACLOFEN 10 MG TABLET GT SCH ×3 (05:45→21:35)
[2023-10-30] MEDS: ACIDOPHILUS/BULGARICUS CHEW TAB GT SCH ×2 (05:45→17:23)
[2023-10-30] MEDS: OMEPRAZOLE 20 MG CAPSULE.DR GT SCH (05:45)
[2023-10-30 08:00] VITALS: BP 127/36; TEMP 97.4; O2SAT 99
[2023-10-30] MEDS: DULOXETINE 20 MG CAPSULE.DR GT SCH (09:27)
[2023-10-30] MEDS: FINASTERIDE 5 MG TABLET GT SCH (09:27)
[2023-10-30] MEDS: HARRIS FLUSH ENEMA PR SCH (09:28)
[2023-10-30] MEDS: REMEDY ESSENTIAL ZINC PASTE 113 GM TP SCH ×2 (09:28→21:35)
[2023-10-30] MEDS: VITAMINS A AND D 5 GM UD PKT TP SCH (09:28)
[2023-10-30] MEDS: HYDROGEN PEROXIDE 3% 118 ML BOTTLE TP SCH ×2 (09:32→21:49)
[2023-10-30 20:02] VITALS: TEMP 98.7
[2023-10-30] MEDS: PROTEIN SUPPLEMENT (PROSTAT) 30 ML LIQUID GT SCH (21:34)
[2023-10-30] MEDS: MULTIVIT, IRON, MIN NO. 8, FA TABLET GT SCH (21:34)
[2023-10-31] MEDS: JEVITY 1.2 1000 ML LIQUID GT PRN ×3 (03:55→21:34)
[2023-10-31] MEDS: OMEPRAZOLE 20 MG CAPSULE.DR GT SCH (05:24)
[2023-10-31] MEDS: BACLOFEN 10 MG TABLET GT SCH ×3 (05:24→21:36)
[2023-10-31] MEDS: ACIDOPHILUS/BULGARICUS CHEW TAB GT SCH ×2 (05:24→17:30)
[2023-10-31] MEDS: SIMETHICONE 80 MG TAB.CHEW GT SCH ×4 (05:24→17:30)
[2023-10-31 08:24] VITALS: BP 131/72; TEMP 97.6; O2SAT 96
[2023-10-31] MEDS: FINASTERIDE 5 MG TABLET GT SCH (09:23)
[2023-10-31] MEDS: REMEDY ESSENTIAL ZINC PASTE 113 GM TP SCH ×2 (09:23→21:32)
[2023-10-31] MEDS: DULOXETINE 20 MG CAPSULE.DR GT SCH (09:23)
[2023-10-31] MEDS: VITAMINS A AND D 5 GM UD PKT TP SCH (09:23)
[2023-10-31] MEDS: HYDROGEN PEROXIDE 3% 118 ML BOTTLE TP SCH ×2 (09:30→19:17)
[2023-10-31 20:36] VITALS: TEMP 98.8
[2023-10-31] MEDS: MULTIVIT, IRON, MIN NO. 8, FA TABLET GT SCH (21:32)
[2023-10-31] MEDS: PROTEIN SUPPLEMENT (PROSTAT) 30 ML LIQUID GT SCH (21:32)
[2023-11-01] MEDS: HARRIS FLUSH ENEMA PR PRN (01:54)
[2023-11-01] MEDS: ACIDOPHILUS/BULGARICUS CHEW TAB GT SCH ×2 (05:01→18:19)
[2023-11-01] MEDS: SIMETHICONE 80 MG TAB.CHEW GT SCH ×4 (05:13→18:20)
[2023-11-01] MEDS: BACLOFEN 10 MG TABLET GT SCH ×3 (05:13→21:33)
[2023-11-01] MEDS: OMEPRAZOLE 20 MG CAPSULE.DR GT SCH (05:13)
[2023-11-01 07:52] VITALS: TEMP 97.9
[2023-11-01] MEDS: HYDROGEN PEROXIDE 3% 118 ML BOTTLE TP SCH ×2 (09:14→19:19)
[2023-11-01] MEDS: HARRIS FLUSH ENEMA PR SCH (09:17)
[2023-11-01] MEDS: DULOXETINE 20 MG CAPSULE.DR GT SCH (09:17)
[2023-11-01] MEDS: REMEDY ESSENTIAL ZINC PASTE 113 GM TP SCH ×2 (09:18→21:33)
[2023-11-01] MEDS: FINASTERIDE 5 MG TABLET GT SCH (09:18)
[2023-11-01] MEDS: VITAMINS A AND D 5 GM UD PKT TP SCH (09:18)
[2023-11-01] MEDS: JEVITY 1.2 1000 ML LIQUID GT PRN (18:30)
[2023-11-01 20:00] VITALS: TEMP 98.8
[2023-11-01 20:06] VITALS: TEMP 98.8
[2023-11-01] MEDS: MULTIVIT, IRON, MIN NO. 8, FA TABLET GT SCH (21:33)
[2023-11-01] MEDS: PROTEIN SUPPLEMENT (PROSTAT) 30 ML LIQUID GT SCH (21:33)
[2023-11-02] MEDS: SIMETHICONE 80 MG TAB.CHEW GT SCH ×5 (00:40→23:02)
[2023-11-02] MEDS: HARRIS FLUSH ENEMA PR PRN (03:29)
[2023-11-02] MEDS: OMEPRAZOLE 20 MG CAPSULE.DR GT SCH (05:28)
[2023-11-02] MEDS: BACLOFEN 10 MG TABLET GT SCH ×3 (05:28→21:16)
[2023-11-02] MEDS: ACIDOPHILUS/BULGARICUS CHEW TAB GT SCH ×2 (05:28→18:46)
[2023-11-02] MEDS: JEVITY 1.2 1000 ML LIQUID GT PRN ×2 (06:30→22:57)
[2023-11-02] MEDS: HYDROGEN PEROXIDE 3% 118 ML BOTTLE TP SCH ×2 (07:05→21:31)
[2023-11-02 08:02] VITALS: TEMP 98.4
[2023-11-02] MEDS: REMEDY ESSENTIAL ZINC PASTE 113 GM TP SCH ×2 (09:00→21:16)
[2023-11-02] MEDS: DULOXETINE 20 MG CAPSULE.DR GT SCH (09:26)
[2023-11-02] MEDS: FINASTERIDE 5 MG TABLET GT SCH (09:27)
[2023-11-02] MEDS: VITAMINS A AND D 5 GM UD PKT TP SCH (09:28)
[2023-11-02] MEDS: MAGNESIUM HYDROXIDE 30 ML LIQUID UDC GT PRN (15:17)
[2023-11-02 20:58] VITALS: TEMP 98.2
[2023-11-02] MEDS: PROTEIN SUPPLEMENT (PROSTAT) 30 ML LIQUID GT SCH (21:16)
[2023-11-02] MEDS: MULTIVIT, IRON, MIN NO. 8, FA TABLET GT SCH (21:16)
[2023-11-03] MEDS: ACIDOPHILUS/BULGARICUS CHEW TAB GT SCH ×2 (05:48→18:37)
[2023-11-03] MEDS: SIMETHICONE 80 MG TAB.CHEW GT SCH ×3 (05:48→18:37)
[2023-11-03] MEDS: OMEPRAZOLE 20 MG CAPSULE.DR GT SCH (05:48)
[2023-11-03] MEDS: BACLOFEN 10 MG TABLET GT SCH ×3 (05:48→21:46)
[2023-11-03] MEDS: HYDROGEN PEROXIDE 3% 118 ML BOTTLE TP SCH ×2 (07:40→19:27)
[2023-11-03 07:46] VITALS: TEMP 98.8
[2023-11-03] MEDS: DULOXETINE 20 MG CAPSULE.DR GT SCH (09:47)
[2023-11-03] MEDS: FINASTERIDE 5 MG TABLET GT SCH (09:47)
[2023-11-03] MEDS: HARRIS FLUSH ENEMA PR SCH (09:47)
[2023-11-03] MEDS: REMEDY ESSENTIAL ZINC PASTE 113 GM TP SCH ×2 (09:47→20:38)
[2023-11-03] MEDS: VITAMINS A AND D 5 GM UD PKT TP SCH (09:47)
[2023-11-03] MEDS: JEVITY 1.2 1000 ML LIQUID GT PRN (16:34)
[2023-11-03] MEDS: MULTIVIT, IRON, MIN NO. 8, FA TABLET GT SCH (20:38)
[2023-11-03] MEDS: PROTEIN SUPPLEMENT (PROSTAT) 30 ML LIQUID GT SCH (20:38)
[2023-11-03] MEDS: ACETAMINOPHEN 650 MG/20 ML UDC- SA PATIENTS-PAIN ONLY GT PRN (20:39)
[2023-11-03] MEDS: MAGNESIUM HYDROXIDE 30 ML LIQUID UDC GT PRN (20:39)
[2023-11-04] MEDS: SIMETHICONE 80 MG TAB.CHEW GT SCH ×4 (00:53→18:25)
[2023-11-04 02:36] VITALS: TEMP 99.2
[2023-11-04] MEDS: BACLOFEN 10 MG TABLET GT SCH ×3 (05:02→22:02)
[2023-11-04] MEDS: OMEPRAZOLE 20 MG CAPSULE.DR GT SCH (05:02)
[2023-11-04] MEDS: ACIDOPHILUS/BULGARICUS CHEW TAB GT SCH ×2 (05:02→18:24)
[2023-11-04 08:03] VITALS: TEMP 99.1
[2023-11-04] MEDS: HYDROGEN PEROXIDE 3% 118 ML BOTTLE TP SCH ×2 (09:55→19:10)
[2023-11-04] MEDS: DULOXETINE 20 MG CAPSULE.DR GT SCH (09:56)
[2023-11-04] MEDS: REMEDY ESSENTIAL ZINC PASTE 113 GM TP SCH ×2 (09:56→21:00)
[2023-11-04] MEDS: VITAMINS A AND D 5 GM UD PKT TP SCH (09:56)
[2023-11-04] MEDS: FINASTERIDE 5 MG TABLET GT SCH (09:56)
[2023-11-04 12:02] VITALS: TEMP 98.7
[2023-11-04] MEDS: JEVITY 1.2 1000 ML LIQUID GT PRN (15:08)
[2023-11-04] MEDS: MULTIVIT, IRON, MIN NO. 8, FA TABLET GT SCH (21:00)
[2023-11-04] MEDS: PROTEIN SUPPLEMENT (PROSTAT) 30 ML LIQUID GT SCH (21:00)
[2023-11-04 22:44] VITALS: TEMP 98.7
[2023-11-05] MEDS: ACIDOPHILUS/BULGARICUS CHEW TAB GT SCH ×2 (06:32→18:35)
[2023-11-05] MEDS: OMEPRAZOLE 20 MG CAPSULE.DR GT SCH (06:32)
[2023-11-05] MEDS: SIMETHICONE 80 MG TAB.CHEW GT SCH ×5 (06:32→23:05)
[2023-11-05] MEDS: BACLOFEN 10 MG TABLET GT SCH ×3 (06:32→21:17)
[2023-11-05 07:50] VITALS: TEMP 98.5
[2023-11-05] MEDS: DULOXETINE 20 MG CAPSULE.DR GT SCH (09:18)
[2023-11-05] MEDS: FINASTERIDE 5 MG TABLET GT SCH (09:18)
[2023-11-05] MEDS: VITAMINS A AND D 5 GM UD PKT TP SCH (09:19)
[2023-11-05] MEDS: REMEDY ESSENTIAL ZINC PASTE 113 GM TP SCH ×2 (09:19→21:15)
[2023-11-05] MEDS: JEVITY 1.2 1000 ML LIQUID GT PRN (09:20)
[2023-11-05] MEDS: HYDROGEN PEROXIDE 3% 118 ML BOTTLE TP SCH ×2 (09:33→21:00)
[2023-11-05 21:01] VITALS: TEMP 98.6
[2023-11-05] MEDS: PROTEIN SUPPLEMENT (PROSTAT) 30 ML LIQUID GT SCH (21:15)
[2023-11-05] MEDS: MULTIVIT, IRON, MIN NO. 8, FA TABLET GT SCH (21:15)
[2023-11-06] MEDS: JEVITY 1.2 1000 ML LIQUID GT PRN
[2023-11-06] MEDS: ACIDOPHILUS/BULGARICUS CHEW TAB GT SCH (05:49)
[2023-11-06] MEDS: SIMETHICONE 80 MG TAB.CHEW GT SCH (05:49)
[2023-11-06] MEDS: OMEPRAZOLE 20 MG CAPSULE.DR GT SCH (05:51)
[2023-11-06] MEDS: BACLOFEN 10 MG TABLET GT SCH (05:51)
== END 2023-11-04 23:59 | disposition still patient (30) | DRG 207 ==
LOC: SA → UNDOADMIN 11-07 06:53 → SA1 05-31 17:55 → SA 06-03 19:44
PROVIDERS: ADMIT Internal Medicine Nephrology; ATTEND Internal Medicine Nephrology
PROC: 5A1955Z Respiratory Ventilation, Greater than 96 Consecutive Hours (ICD-10-PCS; principal; 2022-11-05)
DX: J96.21 Acute and chronic respiratory failure with hypoxia (principal); G93.49 Other encephalopathy; Z99.11 Dependence on respirator [ventilator] status; F02.83 Dementia in other diseases classified elsewhere, unspecified severity, with mood disturbance; E87.1 Hypo-osmolality and hyponatremia; J98.11 Atelectasis; F02.80 Dementia in other diseases classified elsewhere, unspecified severity, without behavioral disturbance, psychotic disturbance, mood disturbance, and anxiety; E78.5 Hyperlipidemia, unspecified; E87.5 Hyperkalemia; G31.83 Neurocognitive disorder with Lewy bodies; I25.2 Old myocardial infarction; I25.10 Atherosclerotic heart disease of native coronary artery without angina pectoris; J96.11 Chronic respiratory failure with hypoxia; R13.10 Dysphagia, unspecified; Z79.4 Long term (current) use of insulin; Z86.14 Personal history of Methicillin resistant Staphylococcus aureus infection; Z87.11 Personal history of peptic ulcer disease; Z87.440 Personal history of urinary (tract) infections; Z93.0 Tracheostomy status; Z93.1 Gastrostomy status; E11.9 Type 2 diabetes mellitus without complications; Z87.01 Personal history of pneumonia (recurrent); N40.1 Benign prostatic hyperplasia with lower urinary tract symptoms; M21.612 Bunion of left foot; F31.9 Bipolar disorder, unspecified; G20.A1 Parkinson's disease without dyskinesia, without mention of fluctuations; D64.9 Anemia, unspecified; S90.822A Blister (nonthermal), left foot, initial encounter; S90.821A Blister (nonthermal), right foot, initial encounter
CPT/HCPCS: 36415; 71045; 74018; 83735; 84100; 85025; 86580; 90686; 94003; 94640; A4663; A6209; C1758; J0692; Q0162; Q9958; Q9963; U0003